=== PATIENT | male | born 1975 | race Caucasian/White ===

== ENCOUNTER 2019-09-19 23:53 | Emergency (ER) | payer BC, SELFPAY ==
--- NOTE | ~2019-09-19 | CT_ITS ---
EXAMINATION: CT abdomen pelvis w con DATE: 09/20/2019 01:49 INDICATION: Generalized abdominal pain. Nausea, vomiting, and diarrhea. TECHNIQUE: Computed tomography (CT) of the abdomen and pelvis was performed with 100 mL Omnipaque 350 intravenous contrast. Automated exposure control and iterative reconstruction technique were employe d. The dose-length product was 1632.50 mGy-cm. COMPARISON: None. FINDINGS: The visualized portions of the lung bases demonstrate mild atelectasis. There is a 4 mm nod ule left lower lobe, likely benign. No pleural effusion. The heart size is normal. No pericardial eff usion. There is diffuse hepatic steatosis. There are gallstones in the gallbladder, which is normal i n size. The spleen, pancreas, adrenal glands, and kidneys are normal. There are no dilated loops of b owel. The appendix is normal. There are no pathologically enlarged lymph nodes. There is no free intr aperitoneal fluid. There is a benign bone island in left femoral head. IMPRESSION: 1. Cholelithiasis. No evidence of acute cholecystitis. 2. Diffuse hepatic steatosis. Reviewed, dictated and finalized at location A.
[2019-09-19 23:54] VITALS: BP 148/98; PULSE 88; RESP 18; TEMP 36.4; O2SAT 95
--- NOTE | 2019-09-20 00:16 | ED.NAVMDI ---
HPI - Nausea/Vomiting/Diarrhea General Chief complaint: Nausea/Vomiting/Diarrhea Stated complaint: n/v/d for 2 days Time Seen by Provider: 09/19/19 23:59 Source: RN notes reviewed History of Present Illness HPI Narrative: Patient presents emergency department from home for nausea vomiting diarrhea patient states symptoms began approximately 3 days ago. He states he is having approximately 3-4 episodes of emesis today as well as several episodes of diarrhea he denies any other associated symptoms denies any fevers or chills chest pain shortness of breath abdominal pain. He denies any recent antibiotic use denies any foreign travel Related Data Allergies Allergy/AdvReac Type Severity Reaction Status Date / Time Penicillins Allergy Mild Unverified 09/08/18 17:24 Review of Systems Review of Systems: Narrative: Gen.: Denies fevers or chills ENT: Denies congestion Respiratory: Denies shortness of breath or cough CV: Denies chest pain or palpitations GI: See HPI denies burning, urgency, frequency or hematuria Musculoskeletal: Denies back pain or muscle pain Neuro: Denies numbness, tingling, weakness or focal weakness Skin: Denies rash Except as documented, all other systems reviewed and negative [facility] Past Medical History Medical History (Updated 09/20/19 @ 02:25 by Suraj Solitario DO) COPD (chronic obstructive pulmonary disease) Social History Social History (Updated 09/20/19 @ 00:17 by Suraj Solitario DO) Smoking packs per day: 0.5 Smoking cigarettes per day: 10.0 Gender identity (if verbalized by the patient): Male Exam Narrative: Exam Narrative: APPEARANCE: No acute distress, nontoxic, resting in bed EYES: EOMI HEENT: Normocephalic, atraumatic, oromucosa dry RESPIRATORY: No respiratory distress Clear to auscultation bilaterally with no rhonchi wheezing or rales. CARDIOVASCULAR: Regular rate and rhythm without murmurs rubs or gallops. ABDOMINAL: Soft, nontender, nondistended, no rebound or guarding MUSCULOSKELETAl: Moves all extremities. No clubbing, cyanosis or edema. NEURO: Awake and alert. Following commands, speech normal, no focal deficits SKIN:: Warm, dry. No rashes lesions or abrasions PSYCHIATRIC: Normal affect/mood, Course Course Emergency Course: Patient states that they are feeling much better at this time. Repeat abdominal exam shows the patient's abdomen to be soft and nontender. Discussed with patient results of workup and diagnosis. Discussed need for follow-up with primary care physician, reasons to return to the emergency department in proper use of medication. Patient understands and agrees to current treatment plan Vital Signs Vital signs: Vital Signs Temperature 97.5 F L 09/19/19 23:54 Pulse Rate 88 09/19/19 23:54 Respiratory Rate 18 09/19/19 23:54 Blood Pressure 148/98 H 09/19/19 23:54 Pulse Oximetry 95 09/19/19 23:54 Temperature 97.5 F L 09/19/19 23:54 Pulse Rate 72 09/20/19 02:04 Respiratory Rate 18 09/20/19 02:04 Blood Pressure 144/85 H 09/20/19 02:04 Pulse Oximetry 100 09/20/19 02:04 MDM - Nausea/Vomiting/Diarrhea Lab Data Result diagrams: 09/20/19 00:20 09/20/19 00:20 Labs: Lab Results 09/20/19 09/20/19 09/20/19 Range/Units 00:20 00:20 01:09 WBC 11.2 H (4.5-10.0) K/mm3 RBC 4.45 L (4.6-6.20) M/mm3 Hgb 13.6 L (14.0-18.0) g/dL Hct 42.5 (42.0-52.0) % MCV 95.5 (80-100) fl MCH 30.6 (26-34) pg MCHC 32.0 (32-36) g/dl RDW 13.7 (11.5-14.5) % Plt Count 248 (150-375) k/mm3 MPV 10.4 (7.4-10.4) fl Immature Gran % (Auto) 0.4 (0-0.5) % Neut % (Auto) 70.1 (45.5-73.1) % Lymph % (Auto) 21.6 (18.3-44.2) % [place] % (Auto) 5.2 (2.6-8.5) % Eos % (Auto) 2.1 (0-4.4) % Baso % (Auto) 0.6 (0.2-1.2) % Lymph # (Auto) 2.41 (0.9-3.2) K/mm3 [place] # (Auto) 0.6 (0.1-0.6) K/mm3 Eos # (Auto) 0.2 (0-0.3) K/mm3 Baso # (Auto) 0.1 (0.0-0.1
[2019-09-20] MEDS: ONDANSETRON INJ 4 MG/2 ML VIAL IV PUSH (00:25)
[2019-09-20] MEDS: LACTATED RINGERS 1,000 ML 999 ML IV CONT (00:25)
[2019-09-20 00:36] LABS: Basophils Absolute Auto 0.1 K/mm3 (0.0-0.1); Basophils Percent Auto 0.6 % (0.2-1.2); Eosinophils Absolute Auto 0.2 K/mm3 (0-0.3); Eosinophils Percent Auto 2.1 % (0-4.4); Hematocrit 42.5 % (42.0-52.0); Hemoglobin 13.6 g/dL (14.0-18.0); Immature Granulocyte Absolute 0.04 K/mm3 (0.00-0.031); Immature Granulocyte Percent A 0.4 % (0-0.5); Lymphocytes Absolute Auto 2.41 K/mm3 (0.9-3.2); Lymphocytes Percent Auto 21.6 % (18.3-44.2); Mean Corpuscular Hemoglobin 30.6 pg (26-34); Mean Corpuscular Volume 95.5 fl (80-100); Mean Platelet Volume 10.4 fl (7.4-10.4); Monocytes Absolute Auto 0.6 K/mm3 (0.1-0.6); Monocytes Percent Auto 5.2 % (2.6-8.5); Neutrophils Absolute Auto 7.8 K/mm3 (1.3-6.7); Neutrophils Percent Auto 70.1 % (45.5-73.1); Platelet Count Result 248 k/mm3 (150-375); Red Blood Count 4.45 M/mm3 (4.6-6.20); Red Cell Distribution Width 13.7 % (11.5-14.5); White Blood Count 11.2 K/mm3 (4.5-10.0)
[2019-09-20 00:39] LABS: Alanine Aminotransferase 35 U/L (4-50); Albumin Level 4.2 g/dL (3.5-5.1); Alkaline Phosphatase 88 U/L (38-126); Aspartate Amino Transferase 36 U/L (17-59); Bilirubin,Total 0.3 mg/dL (0.2-1.3); Blood Urea Nitrogen 13 mg/dL (9-20); Carbon Dioxide 31 mmol/L (22-30); Chloride 100 mmol/L (98-107); Estimated Glomerular Filt Rate > 60; Glucose 117 mg/dL (75-110); Lipase 81 U/L (23-300); Potassium 4.3 mmol/L (3.4-5.0); Sodium 136 mmol/L (137-145)
[2019-09-20 01:16] LABS: Add Urine Microscopic? YES; Appearance Urine Clear (Clear); Bacteria Urine Trace /hpf; Bilirubin Urine Negative (Negative); Blood Urine Negative (Negative); Color Urine Yellow (Yellow); Glucose Urine UA Negative (Negative); Ketones Urine Negative (Negative); Leukocyte Esterase Ur Negative LEU/UL (Negative); Mucus Urine Moderate /lpf; Nitrate Urine Negative (Negative); Protein Urine 1+ mg/dL (Negative); RBC Urine 0-2 /hpf (0-2); Specific Grav Ur 1.027 (1.001-1.035); Squamous Epithelial Cell Urine Rare /hpf (Few); Urobilinogen Urine Negative mg/dL (<2.0); WBC Urine 0-3 /hpf
[2019-09-20] MEDS: PROMETHAZINE HCL 25 MG/ML AMPUL 12.5 MG IV PUSH (01:44)
[2019-09-20] MEDS: SODIUM CHLORIDE 0.9% IV 1,000 ML 999 ML IV CONT (01:44)
[2019-09-20 02:04] VITALS: BP 144/85; PULSE 72; RESP 18; O2SAT 100
[2019-09-20 02:38] VITALS: BP 136/79; PULSE 80; RESP 19; TEMP 37; O2SAT 100
== END 2019-09-20 02:39 | disposition home or self-care (01) ==
PROVIDERS: Emergency Provider Emergency Medicine; PCP Physician Assistant
DX: K80.20 Calculus of gallbladder without cholecystitis without obstruction (principal); J44.9 Chronic obstructive pulmonary disease, unspecified; F17.210 Nicotine dependence, cigarettes, uncomplicated
CPT/HCPCS: 36415; 74177; 80053; 81001; 83690; 85025; 96361; 96374; 96375; 99284; J2405; J2550; J7030; J7120; Q9967

== ENCOUNTER 2020-01-08 09:40 | Emergency (ER) | payer BC, SELFPAY ==
--- NOTE | ~2020-01-08 | CT_ITS ---
EXAMINATION: CT abd pelvis lumbar w con EXAM DATE: 01/08/2020 14:03 INDICATION: Back pain, fall injury 4 months ago. Pain is worse. TECHNIQUE: Spiral CT of the abdomen and pelvis was performed following intravenous injection of 100 m L Omnipaque 350. Axial, coronal and sagittal images were reviewed. Axial, coronal and sagittal image s of the lumbar spine with same bolus of contrast were reviewed. The dose-length product (DLP) for this examination was 1634.27 mGy-cm. The exposure was tailored according to patient size (auto mA ex posure control), and iterative reconstruction (ASIR) was used as additional dose reduction technique. There is no prior study for comparison. FINDINGS: There is hepatic steatosis without suspicious focal lesion identified. Spleen, adrenal glan ds, pancreas are unremarkable. There are gallstones within an otherwise unremarkable gallbladder. N o evidence of obstructive biliary disease. Portal and splenic veins are patent. Kidneys enhance sym metrically. There is no hydronephrosis. The prostate is unremarkable. The bladder is collapsed at time of imaging limiting evaluation. There is no retroperitoneal or pelvic lymphadenopathy. The appendix is normal. The stomach and small bowel are unremarkable. There is expected amount of c olonic stool. No free intraperitoneal gas. The heart is normal in size. There are no pericardial or pleural effusions. The lung bases are unremarkable. There are no osteoblastic or osteolytic lesi ons identified. Lumbar spine: Level by level evaluation is limited from patient's body habitus, quantum mottling. The re is no acute fracture or spondylolysis. Mild diffuse thoracolumbar disc disease. L5-S1 has moderate bilateral neural foraminal stenosis, mild to moderate at L4-5 bilaterally. Mild lower thoracic and l ower lumbar facet arthropathy. Sacroiliac joints are intact. IMPRESSION: 1. Hepatic steatosis. 2. L5-S1 moderate bilateral neural foraminal stenosis. Lesser spondylosis other levels. 3. No acute abdomen, pelvic or lumbar findings. Reviewed, dictated and finalized at location B. IMPRESSION: 1. Hepatic steatosis. 2. L5-S1 moderate bilateral neural foraminal stenosis. Lesser spondylosis othe r levels. 3. No acute abdomen, pelvic or lumbar findings.
[2020-01-08 09:42] VITALS: BP 149/84; PULSE 93; RESP 18; TEMP 36.4; O2SAT 95
[2020-01-08] MEDS: KETOROLAC 30 MG/ML VIAL (*BKC) IV PUSH (11:48)
--- NOTE | 2020-01-08 12:57 | PC.NURSE ---
patient angry and upset at failed iv attempt. states this nurse has a terrible bedside manner and refused to allow additional attempts by this rn. patient refused to lie on stretcher and would only sit on stool where his arm was not easily accessible
[2020-01-08 13:20] LABS: Basophils Absolute Auto 0.1 K/mm3 (0.0-0.1); Basophils Percent Auto 0.5 % (0.2-1.2); Eosinophils Absolute Auto 0.2 K/mm3 (0-0.3); Eosinophils Percent Auto 2.1 % (0-4.4); Hematocrit 41.2 % (42.0-52.0); Hemoglobin 13.2 g/dL (14.0-18.0); Immature Granulocyte Absolute 0.02 K/mm3 (0.00-0.031); Immature Granulocyte Percent A 0.2 % (0-0.5); Lymphocytes Absolute Auto 2.03 K/mm3 (0.9-3.2); Lymphocytes Percent Auto 21.3 % (18.3-44.2); Mean Corpuscular Hemoglobin 30.8 pg (26-34); Mean Platelet Volume 10.1 fl (7.4-10.4); Monocytes Absolute Auto 0.5 K/mm3 (0.1-0.6); Monocytes Percent Auto 4.9 % (2.6-8.5); Neutrophils Absolute Auto 6.8 K/mm3 (1.3-6.7); Platelet Count Result 207 k/mm3 (150-375); Red Blood Count 4.29 M/mm3 (4.6-6.20); Red Cell Distribution Width 13.7 % (11.5-14.5); White Blood Count 9.5 K/mm3 (4.5-10.0)
[2020-01-08 13:34] LABS: Alanine Aminotransferase 38 U/L (4-50); Albumin Level 4.1 g/dL (3.5-5.1); Alkaline Phosphatase 111 U/L (38-126); Anion Gap 7 mmol/L (8-16); Aspartate Amino Transferase 30 U/L (17-59); Bilirubin,Total 0.2 mg/dL (0.2-1.3); Blood Urea Nitrogen 13 mg/dL (9-20); Calcium 9.2 mg/dL (8.4-10.2); Carbon Dioxide 33 mmol/L (22-30); Chloride 97 mmol/L (98-107); Estimated CRCL calculation 203 ml/min; Estimated Glomerular Filt Rate > 60; Glucose 103 mg/dL (75-110); Potassium 4.4 mmol/L (3.4-5.0); Sodium 137 mmol/L (137-145)
[2020-01-08 13:56] LABS: Estimated CRCL calculation 179 ml/min; Estimated Glomerular Filt Rate > 60
[2020-01-08] MEDS: diazePAM (*CRX) 5 MG TABLET PO (15:12)
--- NOTE | 2020-01-08 15:14 | ED.BACK ---
HPI - Back Pain/Injury General Chief Complaint: Back Pain/Injury <Javid Garcia PA-C - Last Filed: 01/08/20 15:24> Stated Complaint: chronic lbp <Javid Garcia PA-C - Last Filed: 01/08/20 15:24> Time Seen by Provider: 01/08/20 11:07 <Javid Garcia PA-C - Last Filed: 01/08/20 15:24> Source: patient and family <Javid Garcia PA-C - Last Filed: 01/08/20 15:24> Mode of arrival: ambulatory <Javid Garcia PA-C - Last Filed: 01/08/20 15:24> Limitations: no limitations <Javid Garcia PA-C - Last Filed: 01/08/20 15:24> History of Present Illness HPI Narrative: Patient is a 44-year-old male who presents with low back pain that is been present for 4 months after falling off of a couch has since had pain in the lower buttock and back that has been persistent patient has not been seen for this complaint denies other injuries or complaints denies any urinary bowel changes rectal bleeding or melena fever chills nausea vomiting or history of similar occurrence patient notes he was bending over off the couch when he fell down as the initial injury <Javid Garcia PA-C - Last Filed: 01/08/20 15:24> Related Data Allergies/Adverse Reactions: Allergies Allergy/AdvReac Type Severity Reaction Status Date / Time Penicillins Allergy Mild Unknown Verified 01/08/20 15:04 <Javid Garcia PA-C - Last Filed: 01/08/20 15:24> Review of Systems Review of Systems: All systems reviewed & are unremarkable except as noted in HPI and below <Javid Garcia PA-C - Last Filed: 01/08/20 15:24> [facility] Past Medical History Medical History: Medical History COPD (chronic obstructive pulmonary disease) <Javid Garcia PA-C - Last Filed: 01/08/20 15:24> Social History Social History: Social History Smoking packs per day: 0.5 Smoking cigarettes per day: 10.0 Gender identity (if verbalized by the patient): Male <LIVIA Ramos Last Filed: 01/08/20 15:24> Exam Narrative: Exam Narrative: GENERAL: Well-appearing, morbidly obese, and in no acute distress. HEAD: Normocephalic, atraumatic. EYES: PERRLA and EOMI. ENT: Nares clear, no rhinorrhea or epistaxis. Mucous membranes moist. Oropharynx without tonsillar hypertrophy exudate or other lesions. CHEST: Clear to auscultation. No respiratory distress. No wheezes rales or rhonchi HEART: Regular rate and rhythm. No murmur heard. Normal peripheral pulses. ABDOMEN: Soft, nontender,distended EXTREMITIES: Normal range of motion. No edema. Tenderness across the lower lumbar spine SKIN: Warm, dry, no rash. NEURO: No focal deficits. Alert and oriented x3. Normal speech and gait PSYCH: Normal mood and affect. <LIVIA Ramos Last Filed: 01/08/20 15:24> Course Course Emergency Course: Patient without high risk changes in the blood work or imaging was unable to provide a urine sample will be discharged patient's pain is been present for 4 months which is reassuring patient advised to follow with primary care for further evaluation patient on arrival to emergency department in no distress appearing uncomfortable patient is afebrile nontoxic-appearing no distress <LIVIA Ramos Last Filed: 01/08/20 15:24> Vital Signs Vital signs: Vital Signs Temperature 36.4 C 01/08/20 09:42 Pulse Rate 93 01/08/20 09:42 Respiratory Rate 18 01/08/20 09:42 Blood Pressure 149/84 H 01/08/20 09:42 Pulse Oximetry 95 01/08/20 09:42 Temperature 36.4 C 01/08/20 09:42 Pulse Rate 80 01/08/20 15:39 Respiratory Rate 20 01/08/20 15:39 Blood Pressure 142/78 H 01/08/20 15:39 Pulse Oximetry 99 01/08/20 15:39 <LIVIA Ramos Last Filed: 01/08/20 15:24> Vital Signs Temperature 36.4 C 01/08/20 09:42 Pulse Rate 93 01/08/20 09:42 Respiratory Rat
[2020-01-08 15:39] VITALS: BP 142/78; PULSE 80; RESP 20; O2SAT 99
== END 2020-01-08 15:41 | disposition home or self-care (01) ==
PROVIDERS: Emergency Medicine Emergency Medical Services; Emergency Provider Emergency Medicine; PCP Physician Assistant
DX: M54.5 Low back pain (principal); J44.9 Chronic obstructive pulmonary disease, unspecified
CPT/HCPCS: 36415; 72132; 74177; 80053; 85025; 96365; 96375; 99284; A9270; J0131; J1885; Q9967

== ENCOUNTER 2020-10-18 15:17 | Observation (INO) | payer BC, SELFPAY ==
[2020-10-18] VITALS (24 sets, daily range): BP systolic 94–137; BP diastolic 54–86; PULSE 80–110; RESP 12–25; TEMP 36.4–36.6; O2SAT 88–100; BMI 56.0
--- NOTE | ~2020-10-18 | US_ITS ---
EXAMINATION: US venous doppler [facility] DATE: 10/19/2020 12:00 INDICATION: Lower limb swelling TECHNIQUE: Hale scale images without and with compression and Doppler images of the bilateral lower e xtremity veins were obtained. COMPARISON: None FINDINGS: The right common femoral vein, profunda femoral vein, femoral vein, popliteal vein, peroneal trunk, p osterior tibial veins, and greater saphenous vein are patent. The left common femoral vein, profunda femoral vein, femoral vein, popliteal vein, peroneal trunk, po sterior tibial veins, and greater saphenous vein are patent. IMPRESSION: 1. Patent bilateral lower extremity veins. No evidence of deep venous thrombosis. Reviewed, dictated and finalized at location A. IMPRESSION: 1. Patent bilateral lower extremity veins. No evidence of deep venous thrombosi s.
--- NOTE | ~2020-10-18 | CT_ITS ---
EXAMINATION: CTA chest PE protocol EXAM DATE: 10/18/2020 16:16 INDICATION: Shortness of breath and elevated d-dimer. TECHNIQUE: Spiral CTA of the chest (pulmonary arteries) was performed with 100 cc Omnipaque 350 intr avenous contrast injection. Images were acquired during the pulmonary arterial phase. Coronal maxi mum intensity projection 3D-reconstructions were created by the technologist on dedicated workstation . Axial, coronal and sagittal reformatted images were reviewed. The dose-length product (DLP) for t his examination was 1100.33 mGy-cm. The exposure was tailored according to patient size (auto mA ex posure control), and iterative reconstruction (ASIR) was used as additional dose reduction technique. There is no prior study for comparison. FINDINGS: Pulmonary arteries are well opacified and without intraluminal filling defects. No thora cic aortic dissection. The lungs are clear. There are no pleural or pericardial effusions. Trach eobronchial tree is patent. There is no mediastinal, hilar or axillary lymphadenopathy. There is no pneumothorax. Heart normal in size. No evidence of coronary arterial calcification. There is hepatic steatosis and single calcified gallstone identified. There is thoracic spondylosis without o steoblastic or osteolytic lesions identified. IMPRESSION: 1. No pulmonary emboli or acute cardiopulmonary findings. Reviewed, dictated and finalized at location A.
--- NOTE | ~2020-10-18 | CT_ITS ---
EXAMINATION: CT abdomen pelvis w con EXAM DATE: 10/19/2020 14:57 INDICATION: Abdominal pain, cellulitis. TECHNIQUE: Spiral CT of the abdomen and pelvis was performed following intravenous injection of 100 m L Omnipaque 350. Axial, coronal and sagittal images of the abdomen and pelvis were reviewed. The do se-length product (DLP) for this examination was 1728.29 mGy-cm. The exposure was tailored according to patient size (auto mA exposure control), and iterative reconstruction (ASIR) was used as addition al dose reduction technique. Comparison is made to prior examination from 01/08/2020. FINDINGS: The subcutaneous fat, skin anteriorly and along the flanks is outside of the field of view. There is small umbilical fat-containing hernia. No other abdominal wall defects are identified. Smal l bilateral inguinal fat-containing hernias. There is hepatic steatosis without suspicious focal lesion identified. Spleen, adrenal glands, pancre as are unremarkable. There are gallstones within an otherwise unremarkable gallbladder. No evidence of obstructive biliary disease. Portal and splenic veins are patent. Kidneys enhance symmetrically . There is no hydronephrosis. The prostate is unremarkable. The bladder is unremarkable. There i s no retroperitoneal or pelvic lymphadenopathy. The appendix is normal. The stomach and small bowel are unremarkable. There is expected amount of c olonic stool. No free intraperitoneal gas. The heart is normal in size. There are no pericardial or pleural effusions. The lung bases are unremarkable. There are no osteoblastic or osteolytic les ions identified. IMPRESSION: 1. No acute intra-abdominal findings. 2. Small inguinal, umbilical fat-containing hernias. 3. Hepatic steatosis. 4. Cholelithiasis. Reviewed, dictated and finalized at location A.
--- NOTE | 2020-10-18 15:25 | ECG_ITS ---
Measurements Intervals [place] Rate: 106 P: 7 WA: 136 QRS: 24 QRSD: 101 T: 60 QT: 325 QTc: 433 Interpretive Statements SINUS TACHYCARDIA BORDERLINE ECG Electronically Signed On 10-18-2020 21:47:23 CDT by César Swanson D.O.
[2020-10-18] MEDS: ALBUTEROL SULFATE NEB 2.5 MG/0.5 ML INH 5 MG INHALATION ×2 (15:40→21:01)
[2020-10-18] MEDS: IPRATROPIUM BR 0.02% INH SOLN 0.5 MG/2.5 ML VIAL 1 MG INHALATION (15:40)
[2020-10-18 15:43] LABS: Basophils Percent Auto 0.4 % (0.2-1.2); Eosinophils Absolute Auto 0.1 K/mm3 (0-0.3); Eosinophils Percent Auto 1.7 % (0-4.4); Hematocrit 38.3 % (42.0-52.0); Hemoglobin 11.8 g/dL (14.0-18.0); Immature Granulocyte Absolute 0.02 K/mm3 (0.00-0.031); Immature Granulocyte Percent A 0.2 % (0-0.5); Lymphocytes Absolute Auto 1.65 K/mm3 (0.9-3.2); Lymphocytes Percent Auto 19.8 % (18.3-44.2); Mean Corpuscular HGB Conc 30.8 g/dl (32-36); Mean Corpuscular Hemoglobin 30.5 pg (26-34); Mean Platelet Volume 9.7 fl (7.4-10.4); Monocytes Absolute Auto 0.5 K/mm3 (0.1-0.6); Monocytes Percent Auto 6.1 % (2.6-8.5); Neutrophils Percent Auto 71.8 % (45.5-73.1); Platelet Count Result 219 k/mm3 (150-375); Red Blood Count 3.87 M/mm3 (4.6-6.20); Red Cell Distribution Width 15.6 % (11.5-14.5); White Blood Count 8.3 K/mm3 (4.5-10.0)
[2020-10-18 15:51] LABS: Base Excess ABG 6.8 mEq/l (+/-2.0); Device ROOM AIR; Fractional Inspired Oxygen 21 %; HCO3 ABG 34.1 mEq/l (22.0-26.0); Modified Allen's Test Pass; Oxygen Content ABG 14.9 %vol (16.0-22.0); Oxygen Saturation ABG 86.3 % (95.0-100.0); Oxyhemoglobin 85.5 % THb (90.0-100.0); PCO2 ABG 61.9 mmHg (35.0-45.0); PO2 ABG 54.6 mmHg (80.0-100.0); Site Drawn RIGHT RADIAL; Total Hemoglobin 12.4 g/dL (12.0-18.0); pH ABG 7.359 (7.350-7.450)
[2020-10-18 15:53] LABS: Alanine Aminotransferase 28 U/L (4-50); Albumin Level 3.7 g/dL (3.5-5.1); Alkaline Phosphatase 89 U/L (38-126); Anion Gap 7 mmol/L (8-16); Aspartate Amino Transferase 30 U/L (17-59); Bilirubin,Total 0.3 mg/dL (0.2-1.3); Blood Urea Nitrogen 13 mg/dL (9-20); Calcium 8.4 mg/dL (8.4-10.2); Carbon Dioxide 32 mmol/L (22-30); Chloride 101 mmol/L (98-107); Estimated CRCL calculation 216 ml/min; Estimated Glomerular Filt Rate > 60; Glucose 138 mg/dL (75-110); Magnesium 1.7 mg/dL (1.6-2.3); Potassium 4.2 mmol/L (3.4-5.0); Sodium 140 mmol/L (137-145)
[2020-10-18 15:54] LABS: INR 0.9; Partial Thromboplastin Time 29.5 SECONDS (22.3-36.8); Prothrombin Time 12.3 Seconds (11.1-14.7)
[2020-10-18 15:57] LABS: D Dimer 0.86 ug/mL (<0.48)
[2020-10-18 16:02] LABS: Platelet Estimate Adequate (Adequate); Stomatocytes 1+ (NORMAL)
[2020-10-18 16:03] LABS: Atypical Lymphocytes Present
[2020-10-18 16:04] LABS: NT Pro B Type Natriuretic Pept 68 pg/mL (5-100); Troponin I < 0.012 ng/mL (0.000-0.034)
[2020-10-18] MEDS: FUROSEMIDE INJ 40 MG/4 ML VIAL IV PUSH (16:10)
[2020-10-18] MEDS: ONDANSETRON INJ 4 MG/2 ML VIAL IV PUSH (16:11)
[2020-10-18 16:34] LABS: Add Urine Microscopic? NO; Appearance Urine Clear (Clear); Bilirubin Urine Negative (Negative); Blood Urine Negative (Negative); Color Urine Straw (Yellow); Glucose Urine UA Negative (Negative); Ketones Urine Negative (Negative); Leukocyte Esterase Ur Negative LEU/UL (Negative); Nitrate Urine Negative (Negative); Protein Urine Negative (Negative); Specific Grav Ur 1.013 (1.001-1.035); Urobilinogen Urine Negative mg/dL (<2.0)
--- NOTE | 2020-10-18 16:48 | ED.SOB ---
HPI - SOB/Dyspnea General Chief Complaint: Shortness of Breath/Dyspnea Stated Complaint: pedal edema, shortness of breath Time Seen by Provider: 10/18/20 15:25 Source: patient, family and RN notes reviewed Mode of arrival: ambulatory Limitations: no limitations History of Present Illness HPI Narrative: Patient is a 45-year-old male who presents to emergency department for evaluation of shortness of breath patient with history of tobacco abuse morbid obesity COPD patient notes that he is visiting from out of town has been noncompliant with his Lasix and has not been eating well has had increasing swelling in the lower extremities coupled with shortness of breath also has some nausea and vomiting last night patient on arrival with mild respiratory distress patient notes longstanding history of tobacco abuse denies any new URI symptoms or sick contacts Related Data Home Medications Medication Instructions Recorded Confirmed albuterol sulfate INHALATION 10/18/20 carvedilol 10/18/20 diclofenac sodium PO 10/18/20 furosemide 10/18/20 meloxicam 10/18/20 metformin mg 10/18/20 Allergies Allergy/AdvReac Type Severity Reaction Status Date / Time Penicillins Allergy Mild Unknown Verified 10/18/20 15:30 Review of Systems Review of Systems: All systems reviewed & are unremarkable except as noted in HPI and below PMFSH Past Medical History Medical History (Updated 10/18/20 @ 17:18 by Javid Garcia PA-C) COPD (chronic obstructive pulmonary disease) Social History Social History Smoking packs per day: 0.5 Smoking cigarettes per day: 10.0 Gender identity (if verbalized by the patient): Male Exam Narrative: Exam Narrative: GENERAL: No-appearing, morbidly obese, and in no acute pain distress. HEAD: Normocephalic, atraumatic. EYES: PERRLA and EOMI. ENT: Nares clear, no rhinorrhea or epistaxis. Mucous membranes moist. Oropharynx without tonsillar hypertrophy exudate or other lesions. Bilateral TMs pearly saldivar nonbulging NECK: Supple. No adenopathy or masses. No carotid bruits or JVD CHEST: Diminished on auscultation. Mild respiratory distress. Expiratory wheezes throughout HEART: Regular rate and rhythm. No murmur heard. Normal peripheral pulses. ABDOMEN: Soft, nontender, distended EXTREMITIES: Normal range of motion. No edema. SKIN: Warm, dry, no rash. Patient with wounds to the abdomen that appear chronic in nature there is some surrounding erythema NEURO: No focal deficits. Alert and oriented x3. Cranial nerves II through XII grossly intact PSYCH: Normal mood and affect. Course Course Emergency Course: Patient evaluated in the emergency department will be admitted for hypoxemia COPD exacerbation patient made aware of case findings treatment plan and diagnosis given updraft treatment and steroids in the emergency department no pneumonia or pulmonary embolus on imaging Consultations Consultation #1: Discussed case with hospitalist who has agreed to accept the patient Date: 10/18/20 Time: 17:17 Vital Signs Vital signs: Vital Signs Temperature 97.6 F 10/18/20 15:25 Pulse Rate 106 H 10/18/20 15:25 Respiratory Rate 18 10/18/20 15:25 Blood Pressure 137/83 10/18/20 15:25 Pulse Oximetry 93 10/18/20 15:25 Temperature 97.6 F 10/18/20 15:25 Pulse Rate 88 10/18/20 16:02 Respiratory Rate 12 10/18/20 16:02 Blood Pressure 137/83 10/18/20 15:25 Pulse Oximetry 100 10/18/20 16:06 MDM - SOB/Dyspnea MDM Narrative Medical decision making narrative: Patient will be brought in for COPD exacerbation to the hospital secondary to hypoxemia patient agreeing with this plan medicated in the emergency department Lab Data Result diagrams: 10/18/20 15:35 10/18/20 15:36 Labs: Lab Results 10/18/20 10/18/20 10/18/20 Range/Units 15:35 15:35 15:36 WBC 8.3 (4.5-10.0) K/mm3 RBC 3.87 L (4.6-6.20)
[2020-10-18] MEDS: methylPREDNISolone SOD SUCC 125 MG VIAL IV PUSH (17:46)
[2020-10-18 19:11] LABS: Troponin I < 0.012 ng/mL (0.000-0.034)
[2020-10-18] MEDS: LACTATED RINGERS 1,000 ML 75 ML IV CONT (19:18)
--- NOTE | 2020-10-18 20:19 | ADMGEN ---
This patient, Jerzy Leahy, was admitted to [facility] Surg Room 311-01. Patient/family oriented to hospital policies and general routines including ID bracelet, bed and alarms, visiting hours, pain management, procedures, bathroom and other care routines, personal items, smoking policy, room service/diet, and visiting hours. Information on how to activate the Rapid Response Team has been discussed. Patient/Family are encouraged to report perceived risks to care and to ask questions if they do not understand what they are told or what they should do.
[2020-10-18] MEDS: FAMOTIDINE 20 MG/2 ML VIAL IV PUSH (20:40)
[2020-10-18] MEDS: IPRATROPIUM BR 0.02% INH SOLN 0.5 MG/2.5 ML VIAL INHALATION (21:01)
--- NOTE | 2020-10-18 22:13 | PM.IMHP ---
H&P: HPI History of Present Illness Date/Time: 10/18/20 22:13 this is a 45-year-old male patient who was just visiting [facility]. The patient came to the emergency room with complaints of shortness of breath. He is morbid obesity and COPD. The patient quite often has boils on his abdomen. The patient had increased swelling to his lower extremities and has not been eating very well recently. The patient tells me that he came in to the emergency room because of his increased swelling to his lower extremities. The patient also stated he had a recent injury to his right knee where he heard up pop and crack when he was running up a hill. Patient is having difficulty walking his right leg. His oxygen level was found to be 88 89%. 2 L of oxygen was applied per nasal cannula. Chest CTA was read as no pulmonary emboli or acute cardiopulmonary findings. The patient was started on a nebulizer treatment, IV Lasix, Zofran Solu-Medrol he was started on Primaxin and vancomycin for cellulitis to the abdomen in a diabetic patient. Unfortunately blood cultures have not been obtained prior to antibiotic treatment. The patient is being admitted to observation services on the date of service 10/18/2020. Chief Complaint: Edema to lower extremity Review of Systems Review of Systems: All systems reviewed & are unremarkable except as noted in HPI and below Constitutional: Constitutional: Reports as per HPI and Reports no additional constitutional complaints Eyes: Eyes: Reports as per HPI and Reports no additional eye complaints ENT: Reports system reviewed and no additional complaints, except as documented and Reports Normal hearing present Cardiovascular: Cardiovascular: Reports no additional cardiovascular complaints Respiratory: Respiratory: Reports no additional respiratory complaints and Reports no additional respiratory complaints Gastrointestinal: Gastrointestinal: Reports as per HPI and Reports no additional gastrointestinal complaints Musculoskeletal: Musculoskeletal: Reports no additional musculoskeletal complaints Integumentary/Breasts: Skin/Breast: Reports system reviewed and no additional complaints, except as docu and Reports as per HPI Neurologic: Reports system reviewed and no additional complaints, except as documented, Reports as per HPI and Reports Normal hearing present Psychiatric: Psychiatric: Reports no additional psychiatric complaints and Reports as per HPI Endocrine: Endocrine: Reports no additional endocrine complaints Hematologic/Lymphatic: Hematologic/Lymphatic: Reports no additional hematologic/lymphatic complaints Allergic/Immunologic: Allergic/Immunologic: Reports no additional allergic/immunologic complaints [facility] Past Medical History Medical History (Updated 10/18/20 @ 22:19 by Lucia Hatch NP) Congestive heart failure COPD (chronic obstructive pulmonary disease) DM2 (diabetes mellitus, type 2) Hypertension Tobacco abuse Surgical History Surgical History (Updated 10/18/20 @ 22:25 by Lucia Hatch NP) H/O cardiac catheterization x2 without intervention H/O hernia repair History of tonsillectomy Family History Family History (Updated 10/18/20 @ 20:31 by Radha Palmer RN) Father Diabetes mellitus Other Acute myocardial infarction Social History Social History (Updated 10/18/20 @ 22:25 by Lucia Hatch NP) Social History: the patient stated that he is and that he lives with his 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 He has 4 daughters. He smokes about half pack a cigarettes a day. He was working in a [employer] and recently got fired due to his illness. The patient does not use any alcohol or illicit drugs. He occasionally uses marijuana. The patient desires to be a full code. Smoking packs per day: 0.50 Smoking cigarettes per day: 10.0 Years smoked: 24 Smoking pack-years: 12.00 Smoking status: Current every day smoker Tobacco type: cig
[2020-10-18] MEDS: HYDROcodone/acetaminophen (*CRX) 5-325 MG TABLET 1 TAB PO (23:41)
[2020-10-19] VITALS (13 sets, daily range): BP systolic 138–166; BP diastolic 69–76; PULSE 70–120; RESP 18–22; TEMP 36.6–36.8; O2SAT 92–99
--- NOTE | 2020-10-19 | ECHO_ITS ---
Patient Info Name: Jerzy Leahy Age: 45 years : 1975 Gender: Male Ht: 72 in Wt: 413 lbs BSA: 3.19 m2 HR: 99 bpm BP: 138 / 69 mmHg Heart Rhythm: Sinus Rhythm Technical Quality: Poor Exam Date: 10/19/2020 9:03 AM Exam Location: [facility] Patient Status: Inpatient Admit Date: 10/18/2020 Staff Ordering Physician: Lucia Hatch NP Truck Switcher: Tania Sharpe RDCS Attending Provider: Bina Padron MD Referring Physician: Holden SNEED; Exam Type: CA echo dop color flow w con Study Info Complete two-dimensional, color flow and Doppler transthoracic echocardiogram is performed with contrast to opacify the left ventricle and to improve the deliniation of the left ventricle endocardial borders. Contrast/Agitated Saline Contrast/Ag. Saline: Definity Amount: 4.00 ml Reason for Poor Study: patient body habitus Summary 1. Technically very difficult and limited exam because of patient obesity. 2. Definity contrast injected to improve visualization. 3. Following contrast injection left ventricular size and systolic function looks preserved. 4. The right ventricle appears to be enlarged. 5. None of the cardiac valves were well visualized. No Doppler evidence of significant valvular dysfunction. Left Ventricle Left ventricular chamber dimension is normal. Left ventricular systolic function is normal, estimated at 60-65%. The left ventricular diastolic function is grade I diastolic dysfunction. Right Ventricle Right ventricular chamber dimension is mildly enlarged. Left Atria Left atrial chamber dimension is mildly enlarged. Right Atria Right atrial chamber dimension is not well visualized. Aortic Valve The aortic valve is not well visualized. There is no aortic valve stenosis. Pulmonic Valve The pulmonic valve is not well visualized. Mitral Valve The mitral valve has not well visualized. Tricuspid Valve The tricuspid valve leaflets are not well visualized. Pericardium/Pleural The pericardium appears normal. Aorta The aortic root size at the sinus of Valsalva is not well visualized. Left Ventricular Outflow Tract Name Value Normal LVOT 2D LVOT Diameter 2.49 cm LVOT Doppler LVOT Peak Gradient 4 mmHg LVOT Mean Gradient 2 mmHg LVOT VTI 22.56 cm LVOT VTI/AV VTI Ratio 0.63 LVOT Stroke Volume 109.80 ml LVOT CO 11.43 l/min LVOT CI 3.58 L/min/m2 Pulmonic Valve Name Value Normal PV Doppler PV Peak Gradient 8 mmHg Aortic Valve Name Value Normal
[2020-10-19] MEDS: MAGNESIUM SULF 2 GM/WATER 50ML 2 GM/50 ML BAG IVPB (01:40)
[2020-10-19 02:10] LABS: Glucose Point of Care 140 mg/dl (65-105)
[2020-10-19] MEDS: ALBUTEROL SULFATE NEB 2.5 MG/0.5 ML INH 5 MG INHALATION ×3 (02:52→13:57)
[2020-10-19] MEDS: IPRATROPIUM BR 0.02% INH SOLN 0.5 MG/2.5 ML VIAL INHALATION ×3 (02:52→13:57)
[2020-10-19 06:07] LABS: Basophils Percent Auto 0.2 % (0.2-1.2); Hematocrit 36.7 % (42.0-52.0); Hemoglobin 11.3 g/dL (14.0-18.0); Immature Granulocyte Absolute 0.06 K/mm3 (0.00-0.031); Immature Granulocyte Percent A 0.6 % (0-0.5); Lymphocytes Absolute Auto 0.72 K/mm3 (0.9-3.2); Lymphocytes Percent Auto 7.1 % (18.3-44.2); Mean Corpuscular HGB Conc 30.8 g/dl (32-36); Mean Corpuscular Hemoglobin 30.1 pg (26-34); Mean Corpuscular Volume 97.6 fl (80-100); Monocytes Absolute Auto 0.2 K/mm3 (0.1-0.6); Monocytes Percent Auto 1.5 % (2.6-8.5); Neutrophils Absolute Auto 9.2 K/mm3 (1.3-6.7); Neutrophils Percent Auto 90.6 % (45.5-73.1); Platelet Count Result 207 k/mm3 (150-375); Red Blood Count 3.76 M/mm3 (4.6-6.20); Red Cell Distribution Width 15.3 % (11.5-14.5); White Blood Count 10.1 K/mm3 (4.5-10.0)
[2020-10-19 06:26] LABS: Anion Gap 8 mmol/L (8-16); Blood Urea Nitrogen 13 mg/dL (9-20); Calcium 8.5 mg/dL (8.4-10.2); Carbon Dioxide 28 mmol/L (22-30); Chloride 98 mmol/L (98-107); Estimated CRCL calculation 232 ml/min; Estimated Glomerular Filt Rate > 60; Glucose 307 mg/dL (75-110); Potassium 4.4 mmol/L (3.4-5.0); Sodium 134 mmol/L (137-145)
[2020-10-19 06:27] LABS: Hemoglobin A1C 7.3 % (<5.7)
[2020-10-19] MEDS: methylPREDNISolone SOD SUCC 125 MG VIAL 80 MG IV PUSH ×2 (06:29→15:23)
[2020-10-19 07:36] LABS: Glucose Point of Care 287 mg/dl (65-105)
[2020-10-19] MEDS: INSULIN ASPART (*BKC) 100 UNITS/ML SUB-Q ×3 (07:56→17:17)
[2020-10-19] MEDS: MELOXICAM 7.5 MG TABLET 15 MG PO (07:59)
[2020-10-19] MEDS: metFORMIN HCL 500 MG TABLET PO (07:59)
[2020-10-19] MEDS: FAMOTIDINE 20 MG/2 ML VIAL IV PUSH (08:02)
[2020-10-19] MEDS: ENOXAPARIN 40 MG/0.4 ML SYRINGE SUB-Q (08:02)
[2020-10-19] MEDS: FUROSEMIDE 40 MG TABLET PO (08:02)
[2020-10-19] MEDS: carvediloL 6.25 MG TABLET PO (10:35)
[2020-10-19 11:02] LABS: Glucose Point of Care 236 mg/dl (65-105)
--- NOTE | 2020-10-19 11:57 | PM.IMPN ---
Subjective Date/time seen: 10/19/20 11:57 Objective Data Vital Signs Vital Signs: Vital Signs - 24 hr 10/18/20 15:25 10/18/20 15:30 10/18/20 15:31 Temperature 36.4 C Pulse Rate 106 H 106 H 105 H Respiratory Rate 18 19 18 Blood Pressure 137/83 125/86 Pulse Oximetry 93 89 L 91 10/18/20 15:45 10/18/20 15:46 10/18/20 15:53 Temperature Pulse Rate 98 97 90 Respiratory Rate 25 H 23 H 19 Blood Pressure 119/75 Pulse Oximetry 88 L 93 10/18/20 16:00 10/18/20 16:01 10/18/20 16:02 Temperature Pulse Rate 90 89 88 Respiratory Rate 19 19 12 Blood Pressure 118/83 Pulse Oximetry 94 95 10/18/20 16:05 10/18/20 16:06 10/18/20 16:21 Temperature Pulse Rate Respiratory Rate Blood Pressure Pulse Oximetry 91 100 98 10/18/20 16:30 10/18/20 16:31 10/18/20 16:45 Temperature Pulse Rate Respiratory Rate Blood Pressure 94/58 L Pulse Oximetry 96 99 94 10/18/20 16:46 10/18/20 17:00 10/18/20 17:46 Temperature Pulse Rate 91 87 Respiratory Rate 17 20 Blood Pressure 123/64 116/68 119/76 Pulse Oximetry 95 94 96 10/18/20 18:10 10/18/20 19:02 10/18/20 21:01 Temperature Pulse Rate 81 88 81 Respiratory Rate 16 22 H 18 Blood Pressure 114/54 L 129/84 Pulse Oximetry 96 96 10/18/20 21:05 10/18/20 21:13 10/18/20 22:00 Temperature 36.6 C Pulse Rate 81 84 80 Respiratory Rate 18 22 H Blood Pressure 136/71 Pulse Oximetry 92 94 10/19/20 02:53 10/19/20 03:01 10/19/20 06:00 Temperature 36.6 C Pulse Rate 99 92 95 Respiratory Rate 18 18 22 H Blood Pressure 138/69 Pulse Oximetry 99 10/19/20 07:41 10/19/20 07:50 10/19/20 08:00 Temperature Pulse Rate 91 96 70 Respiratory Rate 18 18 18 Blood Pressure Pulse Oximetry 97 94 10/19/20 08:20 10/19/20 10:35 Temperature Pulse Rate 70 Respiratory Rate Blood Pressure Pulse Oximetry 94 Intake/Output Intake/Output: Intake & Output 10/16/20 10/17/20 10/18/20 10/19/20 23:59 23:59 23:59 23:59 Intake Total 600 900 Output Total 1400 Balance 600 -500 Meds/Results Medications: Active Medications Generic Name Dose Route Start Last Admin Trade Name Freq PRN Reason Stop Dose Admin Hydrocodone Bitart/Acetaminophen 1 tab 10/18/20 23:09 10/18/20 23:41 Hydrocodone/Acetaminophen (*Crx) 5-325 Mg Tablet PO 1 tab Q4H PRN Administration Pain Rated 4-6 Albuterol 5 mg 10/18/20 20:00 10/19/20 07:39 Albuterol Sulfate Neb 2.5 Mg/0.5 Ml Inh INHALATION 5 mg Q6HRT JEANNINE Administration Carvedilol 6.25 mg 10/19/20 09:00 10/19/20 10:35 Carvedilol 6.25 Mg Tablet PO 6.25 mg DAILY JEANNINE Administration Dextrose 12.5 gm 10/18/20 22:09 Dextrose 50% 25 Gm/50 Ml Syringe IV PUSH PRN PRN Hypoglycemia Protocol Enoxaparin Sodium 40 mg 10/19/20 09:00 10/19/20 08:02 Enoxaparin 40 Mg/0.4 Ml Syringe SUB-Q 40 mg DAILY JEANNINE Administration Famotidine 20 mg 10/18/20 21:00 10/19/20 08:02 Famotidine 20 Mg/2 Ml Vial IV PUSH 20 mg Q12HR JEANNINE Administration Furosemide 40 mg 10/19/20 09:00 10/19/20 08:02 Furosemide 40 Mg Tablet PO 40 mg DAILY JEANNINE Administration Glucagon 1 mg 10/18/20 22:09 Glucagon For Inj 1 Mg Vial IM PRN PRN Hypoglycemia Protocol Glucose 15 gm 10/18/20 22:09 Glucose Oral Gel 15 Gm Of Glucse In 37.5 Gm Tube PO PRN PRN Hypoglycemia Protocol Acetaminophen 1,000 mg in 100 mls @ 400 mls/hr 10/18/20 17:19 Ofirmev 1,000 Mg Ivpb IVPB 10/19/20 17:20 Q6H PRN Mild Pain (1-3) or Fever Lactated Ringer's 1,000 mls @ 75 mls/hr 10/18/20 17:20 10/18/20 19:18 Lr - Lactated Ringers Iv IV CONT 75 mls/hr .[id number] JEANNINE Administration Imipenem/Cilastatin Sodium 500 100 mls @ 300 mls/hr 10/19/20 00:00 10/19/20 07:28 mg/ Dextrose IVPB 300 mls/hr Q6H JEANNINE Administration Vancomycin HCl 1,500 mg in 500 mls @ 333.333 mls/hr 10/18/20 20:00 10/19/20 03:5
[2020-10-19 16:18] LABS: Glucose Point of Care 215 mg/dl (65-105)
--- NOTE | 2020-10-19 17:14 | PCRCNOTE ---
HOME OXYGEN EVALUATION COMPLETE; PT. DOES NOT REQUIRE HOME OXYGEN. SALLY JEROME ORACLE ERP ARCHITECT AND PT.'S R.N. BOTH NOTIFIED OF THE RESULTS.
--- NOTE | 2020-10-19 17:35 | PM.DS ---
DS: Admitting Diagnosis Admitting Diagnosis Admitting Diagnosis: Cellulitis, COPD, Diabetes, Right Knee pain s/p Past Injury DS: Discharge Diagnosis Discharge Diagnosis (1) Abdominal wall cellulitis: Code(s): L03.311 - Cellulitis of abdominal wall Status: Acute Assessment and Plan: Received 4 doses of IV vancomycin and 5 doses of IV imipenem Blood and Wound cultures were drawn after he was already started on antibiotics. Blood and Wound cultures remain pending No fevers noted during hospitalization and his WBC was 8.3 at admission and yasir to 10.1 after IV SoluMedrol dosing. CT abdomen pelvis w con EXAM DATE: 10/19/2020 14:57 INDICATION: Abdominal pain, cellulitis. FINDINGS: The subcutaneous fat, skin anteriorly and along the flanks is outside of the field of view. There is small umbilical fat-containing hernia. No other abdominal wall defects are identified. Small bilateral inguinal fat-containing hernias.There is hepatic steatosis without suspicious focal lesion identified. Spleen, adrenal glands, pancreas are unremarkable. There are gallstones within an otherwise unremarkable gallbladder. No evidence of obstructive biliary disease. Portal and splenic veins are patent. Kidneys enhance symmetrically. There is no hydronephrosis. The prostate is unremarkable. The bladder is unremarkable. There is no retroperitoneal or pelvic lymphadenopathy.The appendix is normal. The stomach and small bowel are unremarkable. There is expected amount of colonic stool. No free intraperitoneal gas. The heart is normal in size. There are no pericardial or pleural effusions. The lung bases are unremarkable. There are no osteoblastic or osteolytic lesions identified. IMPRESSION: 1. No acute intra-abdominal findings.2. Small inguinal, umbilical fat-containing hernias.3. Hepatic steatosis.4. Cholelithiasis. Patient was educated about the risk of MRSA and staph infections, he was informed of how to prevent recurrence, prevent spread to other family members or other wounds, and instructed to follow-up with his primary care provider as well as an infectious disease physician since these wounds have become chronic to him. He showed me a scar on his right thigh where he had a past similar wound that had completely healed up through packing. (2) COPD (chronic obstructive pulmonary disease): Code(s): J44.9 - Chronic obstructive pulmonary disease, unspecified Status: Chronic Assessment and Plan: IMPROVED. TREATED with MEDS. The patient had was hypoxic with low PO2 an elevated pCO2 at ED admission and placed on oxygen overnight. patient had a mildly elevated D-dimer at 0.86 his obesity and slight dehydration may also have contributed to that CTA chest PE protocol EXAM DATE: 10/18/2020 16:16 INDICATION: Shortness of breath and elevated d-dimer. FINDINGS: Pulmonary arteries are well opacified and without intraluminal filling defects. No thoracic aortic dissection. The lungs are clear. There are no pleural or pericardial effusions. Tracheobronchial tree is patent. There is no mediastinal, hilar or axillary lymphadenopathy. There is no pneumothorax. Heart normal in size. No evidence of coronary arterial calcification. There is hepatic steatosis and single calcified gallstone identified. There is thoracic spondylosis without osteoblastic or osteolytic lesions identified.IMPRESSION 1. No pulmonary emboli or acute cardiopulmonary findings. Patient was informed of these findings oxygen was discontinued early this morning without any further need patient was given 2-3 doses of IV methylprednisolone and received Solu-Medrol neb treatments discharged patient on a slow oral prednisone taper, as well as doxycycline for 14 days Patient tolerated the home oxygen evaluation study and remained well above 92% per respiratory therapist. No need for home oxygen. Discharged patient with an albuterol Pro air inhaler to use p
[2020-10-19] MEDS: LIDOCAINE 5% PATCH 3 PATCH TRANSDERM (17:46)
== END 2020-10-19 18:05 | disposition home or self-care (01) ==
LOC: ANHED 17:18 → ANH3MEDSUR 10-19 00:14
PROVIDERS: Emergency Medicine Emergency Medical Services; Nurse Practitioner; Admitting Provider Internal Medicine; Emergency Provider Emergency Medicine; PCP Physician Assistant; Visit Provider Internal Medicine
DX: L03.311 Cellulitis of abdominal wall (principal); J44.1 Chronic obstructive pulmonary disease with (acute) exacerbation; R09.02 Hypoxemia; I11.0 Hypertensive heart disease with heart failure; I50.9 Heart failure, unspecified; E11.9 Type 2 diabetes mellitus without complications; K76.0 Fatty (change of) liver, not elsewhere classified; K80.20 Calculus of gallbladder without cholecystitis without obstruction; K42.9 Umbilical hernia without obstruction or gangrene; S89.91XA Unspecified injury of right lower leg, initial encounter; E66.01 Morbid (severe) obesity due to excess calories; F17.210 Nicotine dependence, cigarettes, uncomplicated
CPT/HCPCS: 36415; 36600; 71275; 74177; 80048; 80053; 81003; 82805; 82948; 83036; 83735; 83880; 84484; 85025; 85380; 85610; 85730; 87040; 87070; 87205; 93005; 93970; 94618; 94640; 96365; 96366; 96367; 96372; 96375; 96376; 99285; A9270; C8929; G0378; G0379; J0743; J1650; J1815; J1940; J2405; J2930; J3370; J3475; J7120; Q9957; Q9967

== ENCOUNTER 2021-02-10 01:31 | Emergency (ER) | payer BC, SELFPAY ==
--- NOTE | ~2021-02-10 | XR_ITS ---
EXAMINATION: XR tibia fibula LT 2V INDICATION: Left lower limb swelling and pain TECHNIQUE: Two views of the left tibia and fibula are obtained. COMPARISON: None available FINDINGS: There is no fracture, dislocation, or subluxation. Bone alignment at the knee and ankle is normal. There is diffuse edema leg. IMPRESSION: 1. Diffuse edema of the left leg without acute osseous abnormality. Reviewed, dictated and finalized at location A.
--- NOTE | ~2021-02-10 | XR_ITS ---
EXAMINATION: XR chest 1V portable INDICATION: Shortness of breath TECHNIQUE: Portable AP chest COMPARISON: 10/06/2018 FINDINGS: The lungs are free of acute opacities. There is no pleural effusion or pneumothorax. The ca rdiomediastinal silhouette is normal. IMPRESSION: 1. No acute cardiopulmonary abnormality. Reviewed, dictated and finalized at location A.
[2021-02-10 01:48] VITALS: PULSE 108; RESP 28; TEMP 37.1; O2SAT 96
[2021-02-10 01:55] VITALS: BP 155/83; PULSE 106
--- NOTE | 2021-02-10 01:56 | ECG_ITS ---
Measurements Intervals [place] Rate: 102 P: 47 MA: 168 QRS: -11 QRSD: 104 T: 60 QT: 334 QTc: 436 Interpretive Statements SINUS TACHYCARDIA BASELINE ARTIFACT- I, II, III, AVR, AVF, V2-V6 BORDERLINE ECG Electronically Signed On 02-10-2021 6:41:50 CDT by César Swanson D.O.
[2021-02-10 02:14] LABS: Basophils Absolute Auto 0.1 K/mm3 (0.0-0.1); Basophils Percent Auto 0.5 % (0.2-1.2); Eosinophils Absolute Auto 0.2 K/mm3 (0-0.3); Hematocrit 36.6 % (42.0-52.0); Hemoglobin 11.3 g/dL (14.0-18.0); Immature Granulocyte Absolute 0.03 K/mm3 (0.00-0.031); Immature Granulocyte Percent A 0.3 % (0-0.5); Lymphocytes Absolute Auto 2.51 K/mm3 (0.9-3.2); Lymphocytes Percent Auto 25.5 % (18.3-44.2); Mean Corpuscular HGB Conc 30.9 g/dl (32-36); Mean Corpuscular Hemoglobin 30.5 pg (26-34); Mean Corpuscular Volume 98.7 fl (80-100); Monocytes Absolute Auto 0.7 K/mm3 (0.1-0.6); Monocytes Percent Auto 7.3 % (2.6-8.5); Neutrophils Absolute Auto 6.3 K/mm3 (1.3-6.7); Neutrophils Percent Auto 64.4 % (45.5-73.1); Platelet Count Result 311 k/mm3 (150-375); Red Blood Count 3.71 M/mm3 (4.6-6.20); Red Cell Distribution Width 14.7 % (11.5-14.5); White Blood Count 9.9 K/mm3 (4.5-10.0)
[2021-02-10 02:19] LABS: Anion Gap 9 mmol/L (8-16); Blood Urea Nitrogen 13 mg/dL (9-20); Calcium 8.5 mg/dL (8.4-10.2); Carbon Dioxide 30 mmol/L (22-30); Chloride 100 mmol/L (98-107); Estimated CRCL calculation 195 ml/min; Estimated Glomerular Filt Rate > 60; Glucose 179 mg/dL (65-110); Potassium 3.7 mmol/L (3.4-5.0); Sodium 139 mmol/L (137-145)
--- NOTE | 2021-02-10 02:23 | PC.NURSE ---
Called lab to add on C-reactive Prot
[2021-02-10 02:31] LABS: INR 0.9; NT Pro B Type Natriuretic Pept 173 pg/mL (5-100); Prothrombin Time 11.6 Seconds (11.1-14.7); Troponin I 0.014 ng/mL (0.000-0.034)
[2021-02-10 02:32] LABS: Partial Thromboplastin Time 29.8 SECONDS (22.3-36.8)
--- NOTE | 2021-02-10 02:43 | ED.LOWEXIN ---
HPI - Extremity Injury (Lower) General Chief Complaint: Shortness of Breath/Dyspnea Stated Complaint: left leg feels like it's about to explode Time Seen by Provider: 02/10/21 01:37 Source: patient and RN notes reviewed Mode of arrival: ambulatory Limitations: no limitations History of Present Illness HPI Narrative: This is a 45 year old male with morbid obesity, HTN, COPD, CHF who presents for evaluation of left leg pain. He was hospitalized 2 weeks ago for left leg cellulitis. He reports he had an ultrasound done that ruled out DVT and he was admitted for IV antibiotics for 4 days. He was discharged with antibiotics and he has completed his antibiotics. He denies fever, chills, nausea or vomiting. He has come to ER due to return of his left leg pain, redness and tenderness. He describes his pain has burning. He reports chronic sob but states it is not any worse. He actually states he is breathing better than when he left hospital because he stopped smoking. He also denies chest pain. He also states he had negative cardiac cath within past month Related Data Home Medications Medication Instructions Recorded Confirmed carvedilol 6.25 mg PO DAILY 10/18/20 10/18/20 diclofenac sodium 75 mg PO DAILY 10/18/20 10/18/20 furosemide 40 mg PO DAILY 10/18/20 10/18/20 meloxicam 15 mg PO DAILY 10/18/20 10/18/20 Allergies Allergy/AdvReac Type Severity Reaction Status Date / Time Penicillins Allergy Mild Unknown Verified 10/18/20 15:30 Review of Systems Review of Systems: All systems reviewed & are unremarkable except as noted in HPI and below PMFSH Past Medical History Medical History Congestive heart failure COPD (chronic obstructive pulmonary disease) DM2 (diabetes mellitus, type 2) Hypertension Tobacco abuse Surgical History Surgical History H/O cardiac catheterization x2 without intervention H/O hernia repair History of tonsillectomy Family History Family History (Updated 10/18/20 @ 20:31 by Radha Palmer RN) Father Diabetes mellitus Other Acute myocardial infarction Social History Social History (Updated 10/18/20 @ 22:25 by Lucia Hatch NP) Social History: the patient stated that he is and that he lives with his 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 He has 4 daughters. He smokes about half pack a cigarettes a day. 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 The patient does not use any alcohol or illicit drugs. He occasionally uses marijuana. The patient desires to be a full code. Smoking packs per day: 0.50 Smoking cigarettes per day: 10.0 Years smoked: 24 Smoking pack-years: 12.00 Smoking status: Current every day smoker Tobacco type: cigarettes Alcohol intake: former Substance use: current Substance use type: marijuana Gender identity (if verbalized by the patient): Male Spiritual care concerns: No Exam Const: General: no acute distress, alert and ill appearing chronically Nutritional Appearance: obese morbidly obese Orientation/consciousness: patient oriented x3 Eyes: EOM: EOMs intact bilaterally Chest: Chest palpation & inspection: normal inspection of the chest Resp: Effort & Inspection: normal respiratory effort, not labored and not tachypneic Auscultation: wheezes Cardio: Rate: regular rate Rhythm: regular rhythm Heart sounds: no murmurs GI: GI Palp: Yes Soft to palpation, No Tenderness to palpation present (GI) and No Guarding due to palpation present (GI) Auscultation: normal bowel sounds Skin: Other: left lower leg from ankle to below knee with mild erythema, tenderness, no drainage, skin is also dry and flaky Neuro: General: patient oriented x3, moves all extremities and CN's II-XI intact bilaterally Extrem: General: edema bilateral (bilateral leg edema, nonpitting
[2021-02-10] MEDS: ceFAZolin 2 GM/D5W 50 ML 2 GM/50 ML BAG IVPB (02:48)
[2021-02-10 03:12] LABS: CRP 2.3 mg/dL (<1.0)
[2021-02-10 03:25] VITALS: BP 162/88; PULSE 102; RESP 20; O2SAT 94
[2021-02-10 03:45] VITALS: BP 160/80; PULSE 101; RESP 20; O2SAT 93
== END 2021-02-10 03:54 | disposition home or self-care (01) ==
PROVIDERS: Emergency Provider General Practice; PCP Physician Assistant
DX: I87.2 Venous insufficiency (chronic) (peripheral) (principal); L03.116 Cellulitis of left lower limb; I11.0 Hypertensive heart disease with heart failure; I50.9 Heart failure, unspecified; J44.9 Chronic obstructive pulmonary disease, unspecified; E11.9 Type 2 diabetes mellitus without complications; F17.210 Nicotine dependence, cigarettes, uncomplicated
CPT/HCPCS: 36415; 71045; 73590; 80048; 83880; 84484; 85025; 85610; 85730; 86140; 93005; 96365; 96375; 99284; J0131; J0690

== ENCOUNTER 2021-03-24 12:26 | Emergency (ER) | payer BC, SELFPAY ==
[2021-03-24] VITALS (21 sets, daily range): BP systolic 106–168; BP diastolic 82–133; PULSE 87–105; RESP 18–33; TEMP 36.3; O2SAT 90–100
--- NOTE | ~2021-03-24 | XR_ITS ---
EXAMINATION: XR chest 2V DATE: 03/24/2021 13:03 INDICATION: Low oxygen saturation. Weight gain. TECHNIQUE: Frontal and lateral views of the chest were obtained on 3 radiographs. COMPARISON: Chest single view 02/10/2021, CT abdomen and pelvis 10/19/2020 FINDINGS: The chest demonstrates clear lungs without pneumonia, pleural effusion, or pneumothorax. Th e heart size is normal. IMPRESSION: 1. No acute cardiopulmonary disease. Reviewed, dictated and finalized at location A. GOODS MARKER
--- NOTE | 2021-03-24 12:37 | ECG_ITS ---
Measurements Intervals [place] Rate: 97 P: 44 CO: 173 QRS: 28 QRSD: 106 T: 56 QT: 334 QTc: 426 Interpretive Statements SINUS RHYTHM BASELINE ARTIFACT- I, II, III, AVL NORMAL ECG Electronically Signed On 03-24-2021 13:11:20 FLOORING MACHINE FEEDER by César Swanson D.O.
--- NOTE | 2021-03-24 14:08 | ED.GENADULT ---
HPI - General Adult General Chief complaint: Shortness of Breath/Dyspnea Stated complaint: difficulty breathing Time Seen by Provider: 03/24/21 13:28 History of Present Illness HPI narrative: 45-year-old male presented to the emergency department for evaluation of shortness of breath. Patient was at outpatient testing for his CPAP when he was found to have a low pulse ox on room air. Patient states he desaturated down to 88% with ambulation. While at rest his oxygen is in the low 90s. Patient states he normally does have some shortness of breath but feels that shortness of breath is worsened. Patient does report associated chest tightness. Patient does normally use his albuterol inhaler in the morning but did not take it this morning due to his running behind for his appointment. Patient states that he does also take Lasix daily but has not been taking his Lasix for the last 3 to 4 days due to being out. Patient has called his primary care physician and is set to have additional Lasix available. Related Data Home Medications Medication Instructions Recorded Confirmed carvedilol 6.25 mg PO DAILY 10/18/20 10/18/20 diclofenac sodium 75 mg PO DAILY 10/18/20 10/18/20 furosemide 40 mg PO DAILY 10/18/20 10/18/20 meloxicam 15 mg PO DAILY 10/18/20 10/18/20 Allergies Allergy/AdvReac Type Severity Reaction Status Date / Time Penicillins Allergy Mild Unknown Verified 10/18/20 15:30 Review of Systems Review of Systems: CONSTITUTIONAL: Denies fever, chills, or sweats. EYES: Denies visual changes, redness, or discharge. ENT: Denies rhinorrhea, congestion, sore throat, or otalgia. CARDIOVASCULAR: Denies chest pain, palpitations. RESPIRATORY: Denies cough but does have shortness of breath. GASTROINTESTINAL: Denies abdominal pain, nausea, vomiting, or diarrhea. GENITOURINARY: Denies dysuria or hematuria. SKIN: Denies rash or itching. Does have lower extremity edema MUSCULOSKELETAL: Denies back pain, joint pain, or myalgia. NEUROLOGIC: Denies headache, numbness, or weakness. PSYCHIATRIC: Denies anxiety or depression. [facility] Past Medical History Medical History Congestive heart failure COPD (chronic obstructive pulmonary disease) DM2 (diabetes mellitus, type 2) Hypertension Tobacco abuse Surgical History Surgical History H/O cardiac catheterization x2 without intervention H/O hernia repair History of tonsillectomy Family History Family History (Updated 10/18/20 @ 20:31 by Radha Palmer RN) Father Diabetes mellitus Other Acute myocardial infarction Social History Social History (Updated 10/18/20 @ 22:25 by Lucia Hatch NP) Social History: the patient stated that he is and that he lives with his 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 He has 4 daughters. He smokes about half pack a cigarettes a day. He was working in a [employer] home and recently got fired due to his illness. The patient does not use any alcohol or illicit drugs. He occasionally uses marijuana. The patient desires to be a full code. Smoking packs per day: 0.50 Smoking cigarettes per day: 10.0 Years smoked: 24 Smoking pack-years: 12.00 Smoking status: Current every day smoker Tobacco type: cigarettes Alcohol intake: former Substance use: current Substance use type: marijuana Gender identity (if verbalized by the patient): Male Spiritual care concerns: No Exam Narrative: APPEARANCE: Well appearing, no pain in distress, well-nourished. Head normocephalic atraumtaic. EYES: PERRLA/EOMI, conjunctivae very clear. NOSE: Normal no drainage EARS:TMS clear Clint Hale, with good light reflex. THROAT: Pharynx clear, no exudate. NECK: Supple. No adenopathy, no masses. RESPIRATORY: Airway patent, respirations nonlabored. Wheezing bilaterally. CARDIOVASCULAR: Regular rate and rhythm without murmurs ru
[2021-03-24] MEDS: ALBUTEROL SULFATE NEB 2.5 MG/0.5 ML INH 5 MG INHALATION (14:24)
[2021-03-24] MEDS: IPRATROPIUM BR 0.02% INH SOLN 0.5 MG/2.5 ML VIAL INHALATION (14:24)
[2021-03-24 14:53] LABS: Basophils Absolute Auto 0.1 K/mm3 (0.0-0.1); Basophils Percent Auto 0.5 % (0.2-1.2); Eosinophils Absolute Auto 0.2 K/mm3 (0-0.3); Eosinophils Percent Auto 1.7 % (0-4.4); Hematocrit 35.5 % (42.0-52.0); Hemoglobin 11.1 g/dL (14.0-18.0); Immature Granulocyte Absolute 0.07 K/mm3 (0.00-0.031); Immature Granulocyte Percent A 0.7 % (0-0.5); Lymphocytes Absolute Auto 1.84 K/mm3 (0.9-3.2); Mean Corpuscular HGB Conc 31.3 g/dl (32-36); Mean Corpuscular Hemoglobin 30.3 pg (26-34); Mean Platelet Volume 9.8 fl (7.4-10.4); Monocytes Absolute Auto 0.5 K/mm3 (0.1-0.6); Monocytes Percent Auto 4.8 % (2.6-8.5); Neutrophils Absolute Auto 7.1 K/mm3 (1.3-6.7); Neutrophils Percent Auto 73.3 % (45.5-73.1); Platelet Count Result 206 k/mm3 (150-375); Red Blood Count 3.66 M/mm3 (4.6-6.20); Red Cell Distribution Width 15.1 % (11.5-14.5); White Blood Count 9.7 K/mm3 (4.5-10.0)
[2021-03-24] MEDS: FUROSEMIDE INJ 40 MG/4 ML VIAL IV PUSH (15:00)
[2021-03-24 15:18] LABS: NT Pro B Type Natriuretic Pept 198 pg/mL (5-100); Troponin I 0.018 ng/mL (0.000-0.034)
[2021-03-24 15:23] LABS: Alanine Aminotransferase 51 U/L (4-50); Albumin Level 3.9 g/dL (3.5-5.1); Alkaline Phosphatase 88 U/L (38-126); Anion Gap 5 mmol/L (8-16); Aspartate Amino Transferase 34 U/L (17-59); Bilirubin,Total 0.3 mg/dL (0.2-1.3); Blood Urea Nitrogen 14 mg/dL (9-20); Calcium 8.8 mg/dL (8.4-10.2); Carbon Dioxide 35 mmol/L (22-30); Chloride 97 mmol/L (98-107); Estimated CRCL calculation 213 ml/min; Estimated Glomerular Filt Rate > 60; Glucose 131 mg/dL (65-110); Potassium 4.3 mmol/L (3.4-5.0); Sodium 137 mmol/L (137-145)
[2021-03-24] MEDS: ALBUTEROL SULFATE NEB 2.5 MG/0.5 ML INH 10 MG INHALATION (15:35)
[2021-03-24 15:50] LABS: INR 0.9
[2021-03-24 15:51] LABS: Partial Thromboplastin Time 26.1 SECONDS (22.3-36.8)
[2021-03-24 16:28] LABS: Anisocytosis 1+ (NORMAL); Platelet Estimate Adequate (Adequate)
[2021-03-24 16:29] LABS: Hypochromasia 1+ (NORMAL)
--- NOTE | 2021-03-24 16:49 | PC.NURSE ---
Pt urinated into the urinal x2, 2000ml total light yellow clear urine
--- NOTE | 2021-03-24 16:58 | PC.NURSE ---
Dr. Momin ordered to monitor o2 sat with ambulation pt o2 sat between 89-95% up and down while walking, Dr. Momin aware
== END 2021-03-24 17:26 | disposition home or self-care (01) ==
PROVIDERS: Emergency Medicine; Emergency Provider Emergency Medicine; PCP Physician Assistant
DX: J44.1 Chronic obstructive pulmonary disease with (acute) exacerbation (principal); R60.9 Edema, unspecified; I11.0 Hypertensive heart disease with heart failure; I50.9 Heart failure, unspecified; E11.9 Type 2 diabetes mellitus without complications; F17.210 Nicotine dependence, cigarettes, uncomplicated
CPT/HCPCS: 36415; 71046; 80053; 83880; 84484; 85025; 85610; 85730; 93005; 94640; 96374; 99284; J1940

== ENCOUNTER 2021-03-30 14:24 | Outpatient (RCR) | payer BC, SELFPAY ==
--- NOTE | 2021-03-30 15:55 | PTOPEVAL ---
Thank you for referring Jerzy Leahy to [facility] The patient is scheduled to be seen for therapy 2 x/week for 8 weeks. Please review, sign, date and return this plan of care BERTHA. I agree with and certify that the following plan of care is medically necessary. Referring Physician Date Attending Provider: Felicia Ramos, PA *PT Outpatient Evaluation Start: 03/30/21 14:36 Freq: Status: Active Protocol: Document 03/30/21 14:36 CAP (Rec: 03/30/21 15:25 CAP [id number]) Therapy Assessment Status Assessment Status Assessment Status Evaluation Outpatient Past Medical History Past Medical History Source of Past Medical History Patient,Recalled from Previous Visit, Confirmed with Patient /Family Neurological History Hx Migraine Yes Cardiovascular History Hx Congestive Heart Failure Yes Hx Other Cardiac Disorders Yes: pt states was told a valve doesn't open properly but, unsure which valve Respiratory History Hx Asthma Yes Hx Chronic Obstructive Pulmonary Disease Yes (COPD) Gastrointestinal History Hx Gastrointestinal Disorders No Significant History Genitourinary History Hx Genitourinary Disorders No Significant History Musculoskeletal History Hx Back Pain Yes Hematological History Hx Hematological Disorders No Significant History Endocrine History Hx Diabetes Yes HEENT History Hx HEENT Disorders No Significant History Integumentary History Hx Cellulitis Yes Reproductive History Hx Reproductive Disorders No Significant History Psychosocial History Hx Bipolar Disorder Yes Hx Other Psychiatric Disorders Yes: Borderline Personality Disorder Pain History History of Any Previous or Ongoing No Significant History Instance of Pain Anesthesia History Hx Anesthesia Reactions No Significant History Evaluation Information Problem Diagnosis low back pain Onset 1 1/2 years Cause fall Additional Evaluation Detail He had back pain prior to his fall, but the fall made it worse. He had pain of 2-3/10 constant before the fall. Subjective Information He slipped off the couch Query Text:As Reported By Patient/ landing on his back. He was Family unable to get off the floor for hours due to pain. He has tried ice and heat without relief.
--- NOTE | 2021-04-05 07:26 | PCPTNOTE ---
Patient called & cancelled scheduled appointment this date due to sickness.
--- NOTE | 2021-04-07 12:00 | PCPTNOTE ---
Pt called and cancelled appointment for 04/07, stating that he has an infection.
--- NOTE | 2021-04-12 08:36 | PCPTNOTE ---
Patient did not show up for scheduled appointment this date. Called & had to leave a message.
--- NOTE | 2021-04-14 16:08 | PCPTNOTE ---
Patient did not show up for scheduled appointment this date. Called patient & he stated he is in the hospital. Explained to him that he will need a new order, to continue therapy.
--- NOTE | 2021-04-19 13:46 | PCPTNOTE ---
Admitting Provider: Attending Provider: Felicia Ramos, PA Patient:Jerzy Leahy Date of :1975 Physical Therapy Discharge Summary Patient has not returned for any further treatments since 03/30/2021, therefore he will be discharged at this time. Patient?s initial visit was on 03/30/2021 14:30 and he 1 visit. The goals have been not met due to Jerzy was seen for only 1 visit. Thank you for referring this patient to [facility]. Please review, sign, date and return this discharge summary BERTHA. I have been updated about the patient's current status and I agree with discharge from the above service at this time. Referring Physician Date
== END 2021-04-20 09:28 | disposition home or self-care (01) ==
LOC: ANHPT 14:24
PROVIDERS: PCP Physician Assistant; Visit Provider Physician Assistant
DX: M54.50 Low back pain, unspecified (principal)
CPT/HCPCS: 97014; 97110; 97163; G0283

== ENCOUNTER 2021-04-09 17:09 | Outpatient (CLI) | payer BC, SELFPAY ==
--- NOTE | ~2021-04-09 | CT_ITS ---
EXAMINATION: CT abdomen pelvis w con DATE: 04/09/2021 20:18 INDICATION: Abdominal pain. Scrotal cellulitis. TECHNIQUE: Computed tomography (CT) of the abdomen and pelvis was performed with 100 mL Omnipaque-350 intravenous contrast. Automated exposure control and iterative reconstruction technique were employe d. The dose-length product was 2522.00 mGy-cm. COMPARISON: 10/19/2020 FINDINGS: Mild bibasilar atelectasis with some respiratory motion artifact. Heart size is normal. No pericardia l or pleural effusion. Diffuse hepatic steatosis. Gallstone at the neck of the decompressed gallbladd er. Some indistinctness to the border between the gallbladder and surrounding fat most likely related to small amount of motion as well as increased malaise secondary to patient body habitus. Acute chol ecystitis would be unlikely in the absence of dilation of the gallbladder. Spleen, pancreas, bilatera l adrenal glands and kidneys are normal. Bowels including the appendix are normal. Bladder is normal. No free intraperitoneal gas or fluid. There is subcutaneous edema throughout the visualized abdomina l wall extending to the anterior wall of the pelvis. Portions of the anterior wall of the abdomen are excluded from the [id number] due to patient body habitus. There is additional subcutaneous edema anterior to the base of the penis. This extends into the scrotum which is markedly swollen with relat ively homogeneous fluid attenuation surrounding the central normal-appearing testes suggesting severe scrotal edema. No discrete abscess or evident soft tissue gas to suggest Dakota's gangrene althoug h the latter is a clinical diagnosis. Mildly enlarged bilateral inguinal lymph nodes which are likely reactive. No pathologically enlarged abdominal or pelvic lymphadenopathy. Minimal to mild spondylosi s in the lumbar and lower thoracic spine. IMPRESSION: 1. Nonspecific severe scrotal edema without evident abscess or soft tissue gas to suggest Dakota's gangrene, the latter which is a clinical diagnosis. 2. Cholelithiasis. Some indistinctness to the wall of the decompressed gallbladder likely due to smal l amount of motion and increased noise related to patient body habitus. Could consider HIDA scan for further evaluation if there is clinical concern for acute cholecystitis. 3. Diffuse hepatic steatosis. Reviewed, dictated and finalized at location . OUT OPERATOR IMPRESSION: 1. Nonspecific severe scrotal edema without evident abscess or soft tissue gas to suggest Dakota's gangrene, the latter which is a clinical diagnosis. 2. Cholelithiasis. Some indistinctness to the wall of the decompressed gallblad ravi likely due to small amount of motion and increased noise related to patient body habitus. Could consider HIDA scan for further evaluation if there is clin ical concern for acute cholecystitis. 3. Diffuse hepatic steatosis.
== END 2021-04-09 17:10 | disposition home or self-care (01) ==
LOC: ANHIMG 04-12 12:14
PROVIDERS: PCP Physician Assistant
DX: K76.0 Fatty (change of) liver, not elsewhere classified (principal); K80.20 Calculus of gallbladder without cholecystitis without obstruction
CPT/HCPCS: 74177; Q9967

== ENCOUNTER 2021-04-12 17:01 | Inpatient (IN) | payer BC, SELFPAY ==
--- NOTE | ~2021-04-12 | CT_ITS ---
EXAMINATION: CTA chest PE protocol DATE: 04/12/2021 22:15 INDICATION: Hypoxemia. Wheezing. History of congestive heart failure, hypertension, COPD, asthma. TECHNIQUE: Computed tomography angiography (CTA) of the chest was performed with 100 mL Omnipaque-350 intravenous contrast timed to evaluate the pulmonary arteries. Coronal maximum intensity projection 3D-reconstructions were created by the technologist. Automated exposure control and iterative reconst ruction technique were employed. Exam dose: 1108.82 mGy-cm total exam DLP. COMPARISON: 04/12/2021 portable AP chest 10/2020 CT pulmonary scan FINDINGS: Soft tissue detail is limited due to body habitus. The pulmonary arteries are moderately opacified, without apparent pulmonary embolus. No thoracic aortic aneurysm. Heart size is borderline. There is minimal right pleural effusion. There is mild predominantly dependent atelectasis in the low er lobes, right greater than left. Small calcified pulmonary granuloma, left lower lobe. No suspicious pulmonary mass lesion is noted. N o pneumothorax. There is mild bilateral hilar lymph node prominence, nonspecific, possibly reactive. It is difficult to determine with certainty whether there are gallstones or cholecystectomy surgical clips at the right upper quadrant due to poor scan detail; recommend clinical correlation with patien t surgical history. Prominent degenerative spurring in the thoracolumbar spine. No suspicious osteolytic or osteoblastic lesions are noted. IMPRESSION: No evidence of pulmonary embolism Limited examination due to body habitus Reviewed, dictated and finalized at Location A. Reviewed, dictated and finalized at location A. T PILE HAMMER OPERATOR
--- NOTE | ~2021-04-12 | XR_ITS ---
XR chest 1V portable DATE: 04/12/2021 20:10 INDICATION: Wheezing. History of COPD, asthma, congestive heart failure, hypertension TECHNIQUE: Portable upright AP apical lordotic view on 04/12/2021 2005 hours COMPARISON: 03/24/2021 PA and lateral chest FINDINGS: There is a limited portable apical lordotic single AP view of the chest. Cardiomegaly. No p ulmonary infiltrate or consolidation, pleural effusion or pneumothorax is evident. Pulmonary vascular ity appears within normal range. IMPRESSION: Cardiomegaly Reviewed, dictated and finalized at location A. MAKING OPERATOR IMPRESSION: Cardiomegaly
[2021-04-12 17:07] VITALS: BP 156/90; PULSE 102; RESP 24; TEMP 36.6; O2SAT 78
[2021-04-12 19:46] VITALS: BP 164/72; PULSE 104; RESP 24; TEMP 36.9; O2SAT 95
--- NOTE | 2021-04-12 20:01 | ED.GENADULT ---
HPI - General Adult General Chief complaint: Urogenital-Male Stated complaint: Swollen Testicles Time Seen by Provider: 04/12/21 19:44 Source: patient Mode of arrival: ambulatory Limitations: no limitations History of Present Illness HPI narrative: Patient presents for evaluation of scrotal swelling. He indicates 8 days ago he noted symptoms called his primary provider. He had an appointment with one of his PCPs partners and had a scrotal ultrasound performed. He indicates he did not hear about the results for several days and was placed on oral antibiotics. He is not sure which medication he was prescribed. He went to [facility] on 04/08/2021 and was admitted. He indicates that he was treated with IV vancomycin. He continued to have scrotal swelling and states he was discharged today. He states lasix was held during his admission. He is not sure what dose of lasix he is on at home but states he takes it once per day. His current pain level is 10 out of 10 in severity, without descriptive quality. He states he is sitting on the toilet in order to urinate as he otherwise cannot push the urine out. Chronic shortness of breath. He states he is in the process of having home O2 approved. He has an underlying history of COPD, asthma, diabetes, and CHF. He recently had a cardiac cath and states that that was normal. He denies any fever, chills, nausea, vomiting, urethral discharge. Home blood sugars have been in the 110's. Patient saturations were in the 70s in the waiting room. He was on placed on 4 L NC and saturations normalized. Related Data Home Medications Medication Instructions Recorded Confirmed carvedilol 6.25 mg PO DAILY 10/18/20 10/18/20 diclofenac sodium 75 mg PO DAILY 10/18/20 10/18/20 furosemide 40 mg PO DAILY 10/18/20 10/18/20 meloxicam 15 mg PO DAILY 10/18/20 10/18/20 Allergies Allergy/AdvReac Type Severity Reaction Status Date / Time Penicillins Allergy Mild Unknown Verified 10/18/20 15:30 Review of Systems Review of Systems: CONSTITUTIONAL: Denies fever, chills, or sweats. EYES: Denies visual changes, redness, or discharge. ENT: Denies rhinorrhea, congestion, sore throat, or otalgia. CARDIOVASCULAR: Reports swelling in bilateral lower extremities, abdomen, scrotum. Denies chest pain, palpitations. RESPIRATORY: Chronic shortness of breath GASTROINTESTINAL: Denies abdominal pain, nausea, vomiting, or diarrhea. GENITOURINARY: Reports scrotal pain, swelling. Reports difficulty urinating SKIN: Denies rash or itching. MUSCULOSKELETAL: Denies back pain, joint pain, or myalgia. NEUROLOGIC: Denies headache, numbness, dizziness, or weakness. PSYCHIATRIC: Denies anxiety or depression. [facility] Past Medical History Medical History Congestive heart failure COPD (chronic obstructive pulmonary disease) DM2 (diabetes mellitus, type 2) Hypertension Tobacco abuse Surgical History Surgical History H/O cardiac catheterization x2 without intervention H/O hernia repair History of tonsillectomy Family History Family History Father Diabetes mellitus Other Acute myocardial infarction Social History Social History Social History: the patient stated that he is and that he lives with his she is a durable power assistant county attorney for healthcare. He has 4 daughters. He smokes about half pack a cigarettes a day. He was working in a [employer] home and recently got fired due to his illness. The patient does not use any alcohol or illicit drugs. He occasionally uses marijuana. The patient desires to be a full code. Smoking packs per day: 0.50 Smoking cigarettes per day: 10.0 Years smoked: 24 Smoking pack-years: 12.00 Smoking status: Current every da
[2021-04-12] MEDS: HYDROcodone/acetaminophen (*CRX) 5-325 MG TABLET 2 TAB PO (20:24)
[2021-04-12] MEDS: ALBUTEROL SULFATE (*SP) INHALER 1 PUFF (20:47)
[2021-04-12] MEDS: ALBUTEROL SULFATE (*SP) AEROSOL 1 PUFF 2 PUFF INHALATION (20:47)
[2021-04-12 20:57] LABS: Basophils Absolute Auto 0.1 K/mm3 (0.0-0.1); Basophils Percent Auto 0.6 % (0.2-1.2); Eosinophils Absolute Auto 0.2 K/mm3 (0-0.3); Eosinophils Percent Auto 1.7 % (0-4.4); Hematocrit 35.7 % (42.0-52.0); Hemoglobin 10.6 g/dL (14.0-18.0); Immature Granulocyte Percent A 1.1 % (0-0.5); Lymphocytes Absolute Auto 1.84 K/mm3 (0.9-3.2); Lymphocytes Percent Auto 19.4 % (18.3-44.2); Mean Corpuscular HGB Conc 29.7 g/dl (32-36); Mean Corpuscular Hemoglobin 28.8 pg (26-34); Mean Platelet Volume 10.6 fl (7.4-10.4); Monocytes Absolute Auto 0.6 K/mm3 (0.1-0.6); Neutrophils Absolute Auto 6.8 K/mm3 (1.3-6.7); Neutrophils Percent Auto 71.2 % (45.5-73.1); Nucleated Red Blood Cells Perc 0.2 % (0.0-0.2); Platelet Count Result 194 k/mm3 (150-375); Red Blood Count 3.68 M/mm3 (4.6-6.20); Red Cell Distribution Width 15.9 % (11.5-14.5); White Blood Count 9.5 K/mm3 (4.5-10.0)
[2021-04-12 21:07] LABS: Prothrombin Time 12.8 Seconds (11.1-14.7)
[2021-04-12 21:08] LABS: Partial Thromboplastin Time 25.3 SECONDS (22.3-36.8)
[2021-04-12 21:10] LABS: Alanine Aminotransferase 160 U/L (4-50); Albumin Level 3.7 g/dL (3.5-5.1); Alkaline Phosphatase 90 U/L (38-126); Anion Gap 0 mmol/L (8-16); Aspartate Amino Transferase 98 U/L (17-59); Bilirubin,Total 0.4 mg/dL (0.2-1.3); Blood Urea Nitrogen 19 mg/dL (9-20); Calcium 8.5 mg/dL (8.4-10.2); Carbon Dioxide 38 mmol/L (22-30); Chloride 97 mmol/L (98-107); Estimated CRCL calculation 191 ml/min; Estimated Glomerular Filt Rate > 60; Glucose 114 mg/dL (65-110); Potassium 4.4 mmol/L (3.4-5.0); Sodium 135 mmol/L (137-145)
[2021-04-12 21:17] LABS: NT Pro B Type Natriuretic Pept 1370 pg/mL (5-100)
[2021-04-12 21:23] VITALS: BP 188/97; PULSE 95; RESP 26; O2SAT 94
[2021-04-12 21:27] VITALS: O2SAT 97
[2021-04-12 21:29] LABS: Troponin I 0.075 ng/mL (0.000-0.034)
--- NOTE | 2021-04-12 21:29 | ECG_ITS ---
Measurements Intervals [place] Rate: 93 P: 58 OH: 180 QRS: 34 QRSD: 102 T: 37 QT: 336 QTc: 420 Interpretive Statements SINUS RHYTHM BORDERLINE T WAVE ABNORMALITY- ANTERIOR LEADS BASELINE ARTIFACT- V4-V6 BORDERLINE ECG Electronically Signed On 04-13-2021 7:35:01 SHOE COVERER by César Swanson D.O.
[2021-04-12 21:32] LABS: Anisocytosis 1+ (NORMAL); Hypochromasia 1+ (NORMAL); Stomatocytes 1+ (NORMAL)
[2021-04-12 21:33] LABS: Platelet Estimate Adequate (Adequate)
[2021-04-12 23:12] VITALS: BP 195/98; PULSE 97; RESP 20; O2SAT 97
[2021-04-12] MEDS: FUROSEMIDE INJ 40 MG/4 ML VIAL IV PUSH (23:13)
[2021-04-12] MEDS: MORPHINE SULFATE (*CRX) 2 MG/ML INJ IV PUSH (23:13)
--- NOTE | 2021-04-12 23:30 | PM.IMHP ---
H&P: HPI History of Present Illness Date/Time: 04/12/21 23:30 Chief Complaint: SCROTAL SWELLING Narrative: This is a 45-year-old male with past medical history significant for morbid obesity, COPD, diastolic heart failure grade 1, gastroesophageal reflux disease, tobacco dependence, type 2 diabetes mellitus. Patient presented to emergency room due to swelling of his scrotum patient had been to his primary care office for these on had an ultrasound of the scrotum performed however did not hear about the results and a was placed on oral antibiotics however no resolution of scrotal edema when to emergency room at [facility] where he was admitted and treated with IV antibiotics he was discharged home but still with significant scrotal swelling which makes it difficult for patient's ambulation as well hence patient presented to our emergency room for further evaluation and treatment of this. In emergency room patient was found to be saturating 70% on room air and was placed on 4 L by nasal cannula. Patient denies any fevers, rigors, chills, nausea, vomiting ,abdominal pain or scrotal pain ,no PND, no orthopnea, but has had bilateral lower extremity swelling. Preliminary workup in the emergency room was significant for slightly elevated troponins, pCO2 61, elevated brain natriuretic peptide. Decision has been made to admit the patient for further evaluation management and treatment. Review of Systems Review of Systems: Scrotal swelling. Constitutional: Constitutional: Denies chills, Denies fever(s) and Denies night sweats Eyes: Eyes: Denies change in vision ENT: Denies dysphagia, Denies nasal congestion, Denies nasal discharge, Denies nasal obstruction and Denies odynophagia Cardiovascular: Cardiovascular: Denies chest pain at rest, Reports leg edema, Denies radiating jaw, neck or arm pain, Denies palpitations, Denies dyspnea, Denies dyspnea on exertion and Denies orthopnea Respiratory: Respiratory: Denies change in phlegm color, Denies cough, Denies excessive phlegm production, Denies dyspnea and Denies wheezing Gastrointestinal: Gastrointestinal: Denies abdominal pain, Denies diarrhea, Denies nausea and Denies vomiting Genitourinary: Genitourinary: Reports scrotal swelling Musculoskeletal: Musculoskeletal: Denies arthralgias, Denies joint swelling and Denies muscle weakness Integumentary/Breasts: Skin/Breast: Denies rash Neurologic: Denies focal weakness and Denies Sensory deficit (Neuro) Psychiatric: Psychiatric: Reports no additional psychiatric complaints and Reports as per HPI Endocrine: Endocrine: Denies cold intolerance, Denies heat intolerance, Denies polyphagia, Denies polydipsia and Denies polyuria Hematologic/Lymphatic: Hematologic/Lymphatic: Reports no additional hematologic/lymphatic complaints and Reports as per HPI Allergic/Immunologic: Allergic/Immunologic: Reports no additional allergic/immunologic complaints and Reports as per HPI [facility] Past Medical History Medical History Congestive heart failure COPD (chronic obstructive pulmonary disease) DM2 (diabetes mellitus, type 2) Hypertension Tobacco abuse Surgical History Surgical History H/O cardiac catheterization x2 without intervention H/O hernia repair History of tonsillectomy Family History Family History Father Diabetes mellitus Other Acute myocardial infarction Social History Social History Social History: the patient stated that he is and that he lives with his she is a durable power bankruptcy attorney for healthcare. He has 4 daughters. He smokes about half pack a cigarettes a day. He was working in a [employer] home and recently got fired due to his illness. The patient does not use any alcohol or illicit
[2021-04-12 23:40] LABS: Troponin I 0.068 ng/mL (0.000-0.034)
[2021-04-13] VITALS (15 sets, daily range): BP systolic 128–144; BP diastolic 64–95; PULSE 88–100; RESP 18–29; TEMP 36.2–36.6; O2SAT 54–100; BMI 62.7
--- NOTE | 2021-04-13 | ECHO_ITS ---
Patient Info Name: Jerzy Leahy Age: 45 years : 1975 Gender: Male Ht: 73 in Wt: 249 lbs BSA: 2.44 m2 HR: 94 bpm BP: 135 / 95 mmHg Heart Rhythm: Sinus Rhythm Exam Date: 04/13/2021 9:05 AM Exam Location: [facility] Pulmonary Patient Status: Inpatient Admit Date: 04/12/2021 Staff Ordering Physician: Bina Padron MD Bullet Slugs Inspector: Jorge Salomon, AJAYCS, RT Attending Provider: Bina Padron MD Referring Physician: Nereida LOMELI; Exam Type: CA echo doppler color flow Study Info Indications R60.1 - Generalized edema Complete two-dimensional, color flow and Doppler transthoracic echocardiogram is performed. Summary 1. Complete two-dimensional, color flow and Doppler transthoracic echocardiogram is performed. 2. Left ventricular chamber dimension is severely enlarged. 3. Left ventricular systolic function is low normal, estimated at 50-55%. 4. There is moderately increased left ventricular wall thickness. 5. The left ventricular diastolic function is abnormal. 6. Left atrial chamber dimension is mildly enlarged. 7. There is mild mitral valve regurgitation. 8. There is mild tricuspid valve regurgitation. 9. Mild pulmonary hypertension, estimated pulmonary arterial systolic pressure is 37 mmHg. 10. There is mild pulmonic regurgitation. 11. The aortic root size at the sinus of Valsalva is mildly dilated. Left Ventricle Left ventricular chamber dimension is severely enlarged. Left ventricular systolic function is low normal, estimated at 50-55%. There is moderately increased left ventricular wall thickness. The left ventricular diastolic function is abnormal. Right Ventricle Right ventricular chamber dimension is normal. Right ventricular systolic function is normal. Left Atria Left atrial chamber dimension is mildly enlarged. Right Atria Right atrial chamber dimension is normal. Atrial Septum Intact interatrial septum visualized by color flow imaging. Aortic Valve The aortic valve is trileaflet. There is no aortic valve sclerosis. There is no aortic valve stenosis. There is trace aortic valve regurgitation. Pulmonic Valve The pulmonic valve is normal. There is no pulmonic valve stenosis. There is mild pulmonic regurgitation. Mitral Valve The mitral valve has normal leaflets. There is no mitral valve stenosis. There is mild mitral valve regurgitation. Tricuspid Valve The tricuspid valve leaflets are normal. There is no significant tricuspid valve stenosis. There is mild tricuspid valve regurgitation. Mild pulmonary hypertension, estimated pulmonary arterial systolic pressure is 37 mmHg. Pericardium/Pleural The pericardium appears normal. There is no pericardial effusion. Inferior Vena Cava Normal inferior vena cava with >50% collapse upon inspiration consistent with normal right atrial pressure, 5 mmHg. Aorta The aortic root size at the sinus of Valsalva is mildly dilated. Left Ventricular Outflow Tract Name Value Normal LVOT 2D LVOT Diameter 2.0 cm LVOT Doppler LVOT Peak Gradient 6 mmHg LVOT Mean Gradient
--- NOTE | 2021-04-13 01:43 | ADMGEN ---
This patient, Jerzy Leahy, was admitted to Virtual Bed 3rd Floor-2. Patient/family oriented to hospital policies and general routines including ID bracelet, bed and alarms, visiting hours, pain management, procedures, bathroom and other care routines, personal items, smoking policy, room service/diet, and visiting hours. Information on how to activate the Rapid Response Team has been discussed. Patient/Family are encouraged to report perceived risks to care and to ask questions if they do not understand what they are told or what they should do.
[2021-04-13 03:49] LABS: Alanine Aminotransferase 156 U/L (4-50); Albumin Level 3.8 g/dL (3.5-5.1); Alkaline Phosphatase 86 U/L (38-126); Aspartate Amino Transferase 83 U/L (17-59); Bilirubin,Total 0.4 mg/dL (0.2-1.3); Blood Urea Nitrogen 17 mg/dL (9-20); Calcium 8.5 mg/dL (8.4-10.2); Carbon Dioxide > 40 mmol/L (22-30); Chloride 94 mmol/L (98-107); Estimated CRCL calculation 191 ml/min; Estimated Glomerular Filt Rate > 60; Glucose 146 mg/dL (65-110); Potassium 4.1 mmol/L (3.4-5.0); Sodium 135 mmol/L (137-145)
[2021-04-13 03:59] LABS: Basophils Absolute Auto 0.1 K/mm3 (0.0-0.1); Basophils Percent Auto 0.7 % (0.2-1.2); Eosinophils Absolute Auto 0.2 K/mm3 (0-0.3); Eosinophils Percent Auto 1.9 % (0-4.4); Hematocrit 37.7 % (42.0-52.0); Hemoglobin 11.2 g/dL (14.0-18.0); Immature Granulocyte Absolute 0.09 K/mm3 (0.00-0.031); Lymphocytes Absolute Auto 1.62 K/mm3 (0.9-3.2); Lymphocytes Percent Auto 18.1 % (18.3-44.2); Mean Corpuscular HGB Conc 29.7 g/dl (32-36); Mean Corpuscular Hemoglobin 28.9 pg (26-34); Mean Corpuscular Volume 97.4 fl (80-100); Mean Platelet Volume 10.4 fl (7.4-10.4); Monocytes Absolute Auto 0.6 K/mm3 (0.1-0.6); Monocytes Percent Auto 6.9 % (2.6-8.5); Neutrophils Absolute Auto 6.4 K/mm3 (1.3-6.7); Neutrophils Percent Auto 71.4 % (45.5-73.1); Platelet Count Result 201 k/mm3 (150-375); Red Blood Count 3.87 M/mm3 (4.6-6.20)
[2021-04-13 04:01] LABS: Troponin I 0.068 ng/mL (0.000-0.034)
[2021-04-13] MEDS: MORPHINE SULFATE (*CRX) 4 MG/ML INJ IV PUSH ×3 (04:42→18:20)
[2021-04-13 05:17] LABS: Platelet Estimate Adequate (Adequate)
[2021-04-13 05:18] LABS: Stomatocytes 1+ (NORMAL)
--- NOTE | 2021-04-13 07:10 | PC.NURSE ---
pt having desats into the 50's while sleeping. arouses easily with o2 increasing back into the 90's. hospitalist to be contacted for bipap orders.
[2021-04-13] MEDS: HEPARIN SODIUM 5,000 UNITS/ML VIAL 5000 UNITS SUB-Q ×3 (07:31→21:03)
[2021-04-13 07:49] LABS: Glucose Point of Care 121 mg/dl (65-105)
--- NOTE | 2021-04-13 08:27 | PC.NURSE ---
pts having desats into the 20's while sleeping. sats increase upon waking. when questioned pt states he does not want intubation unless he is unable to answer my questions. pt alert and oriented x 3. resp at bedside. juan francisco hospitalist contacted and will come see pt
[2021-04-13] MEDS: FUROSEMIDE INJ 40 MG/4 ML VIAL IV PUSH ×2 (09:00→17:49)
[2021-04-13 09:06] LABS: Glucose Point of Care 133 mg/dl (65-105)
[2021-04-13] MEDS: INSULIN ASPART (*BKC) 100 UNITS/ML 10 UNITS SUB-Q (09:13)
--- NOTE | 2021-04-13 09:30 | PC.NURSE ---
juan francisco at bedside
[2021-04-13 12:16] LABS: EDCOVIDSCREEN Negative (Negative)
[2021-04-13 12:24] LABS: Glucose Point of Care 105 mg/dl (65-105)
--- NOTE | 2021-04-13 13:21 | PM.IMPN ---
Progress Note: A&P Assessment and Plan (1) Scrotal swelling: Code(s): N50.89 - Other specified disorders of the male genital organs Status: Acute Assessment and Plan: Patient is fluid overload He was recently admitted and discharged from [facility] where he was treated with IV antibiotics I suspect patient received fluids during this admission at have caused fluid overload Continue diuresing with IV Lasix 40 mg BID Consider urology consult as needed (2) Anasarca: Code(s): R60.1 - Generalized edema Status: Acute Assessment and Plan: Patient with fluid overload recent echocardiogram showed normal ejection fraction Repeat an echocardiogram pending Cardiology consulted I/O Daily weights Tele monitoring (3) Elevated troponin: Code(s): R77.8 - Other specified abnormalities of plasma proteins Status: Acute Assessment and Plan: Patient with left heart catheterization in the past with known stent placement Suspect nonischemic myocardial injury Cardiology consulted (4) Acute hypoxemic respiratory failure: Code(s): J96.01 - Acute respiratory failure with hypoxia Status: Acute Assessment and Plan: Patient is COPD year and has history of tobacco use Albuterol nebulizers schedule Continue oxygen by nasal cannula to keep oxygen saturation 94% Bipap initiated Consult to pulmonary (5) Tobacco abuse: Code(s): Z72.0 - Tobacco use Status: Chronic Assessment and Plan: Nicotine patch as needed (6) COPD (chronic obstructive pulmonary disease): Code(s): J44.9 - Chronic obstructive pulmonary disease, unspecified Status: Chronic Assessment and Plan: Bilateral wheezing Will continue nebulizer treatment (7) DM2 (diabetes mellitus, type 2): Code(s): E11.9 - Type 2 diabetes mellitus without complications Status: Chronic Assessment and Plan: Patient is on metformin at home, hold while inpatient Insulin sliding scale as needed, accuchecks Monitor Subjective Date/time seen: 04/13/21 13:21 Interval history: Pt seen this a.m.; labs, vs, diagnostic results reviewed; nursing staff reports pt O2 sats reading dropping to 40% while sleeping; pt denies any lightheadedness, dizziness, SOB, MONTIEL; sats >95% talking in complete sentences while on room air Review of Systems Review of Systems: All systems reviewed & are unremarkable except as noted in HPI and below Exam Const: General: no acute distress, alert and awake Nutritional Appearance: obese Orientation/consciousness: patient oriented x3 HENMT: Head: normocephalic and atraumatic Ears: hearing grossly normal bilaterally and external ears normal Face and sinus: face symmetric Mouth: Yes Normal oral and palatal mucosa present Eyes: EOM: EOMs intact bilaterally Neck: Neck: full ROM, trachea midline and no JVD Chest: Chest palpation & inspection: normal inspection of the chest Resp: Effort & Inspection: normal respiratory effort Auscultation: wheezes Cardio: Jugular venous distension: no JVD Rate: regular rate Rhythm: regular rhythm Heart sounds: S1 normal heart sound present and S2 normal heart sound present GI: Inspection: normal to inspection GI Palp: Yes Soft to palpation Percussion: Yes normal to percussion Auscultation: normal bowel sounds : General: Yes no CVA tenderness Male General Exam: Yes edema (scrotal ) Urinary Catheter: Urinary Catheter: patent and draining and urine clear Back/Spine/Pelvis: Back: no CVA tenderness Skin: General skin exam: normal color Rashes: no rashes Neuro: General: patient oriented x3 and no focal motor deficits Speech: normal speech Extrem: General: no clubbing, cyanosis or edema Psych: Appearance: grossly normal Affect: normal affect Judgement: Good judgement present (Psych) Objective Data Vital Signs Vital Signs: Vital Signs - 24 hr 04/12/21 17:07 04/12/21 19:46 04/12/21 21
--- NOTE | 2021-04-13 14:49 | PM.CNPUL ---
Assessment and Plan Assessment and plan (1) Acute hypoxemic respiratory failure: Code(s): J96.01 - Acute respiratory failure with hypoxia Status: Acute Assessment and Plan: 45-year-old man with morbid obesity, obesity hypoventilation syndrome, history of tobacco use, presented with scrotal edema, chronic hypercapnic respiratory failure, hypoxemia and lower extremity edema, All related to obesity hypoventilation. Chest CT showed some basal atelectasis but no pulmonary embolism or evidence of lung congestion. There was no evidence of emphysema on chest CT. Patient has history of COPD but no pulmonary function testing is available. I would continue with current BiPAP/auto CPAP and supplemental oxygen to maintain O2 saturation over 92%. Also avoid sedatives. Continue with short-acting bronchodilators p.r.n.. And I would switch to patient to Lovenox 40 mg b.i.d. for DVT prophylaxis. Patient will need to complete his CPAP titration study for sleep disorder breathing, and return to Pulmonary Clinic for evaluation for a history of COPD. (2) Elevated troponin: Code(s): R77.8 - Other specified abnormalities of plasma proteins Status: Acute (3) Scrotal swelling: Code(s): N50.89 - Other specified disorders of the male genital organs Status: Acute (4) DM2 (diabetes mellitus, type 2): Qualifiers: Diabetes mellitus lobsterman insulin use: unspecified lobsterman insulin use status Code(s): E11.9 - Type 2 diabetes mellitus without complications Status: Chronic (5) Morbid obesity: Code(s): E66.01 - Morbid (severe) obesity due to excess calories Status: Acute History of Present Illness History of Present Illness Consult date: 04/13/21 Chief complaint: Anasarca Narrative: This 45-year-old man presented to the emergency room with swelling of his scrotum. The patient has past medical history significant for morbid obesity, diastolic heart failure grade 1, GERD, tobacco dependence type 2 diabetes mellitus. Patient was recently hospitalized at [facility] where he received IV antibiotics presumably for cellulitis. In the emergency room the patient was found to have hypoxemia with O2 saturation at 70%. He has no fever chills nausea vomiting abdominal pain orthopnea. He has had chronic lower extremity pedal edema. The patient told me that he has undergone sleep study sleep isordered breathing but has not had the study for CPAP titration. Currently he is not using any CPAP at home. Arterial blood gases showed hypercapnia with a pCO2 at 61 mmHg and well compensated respiratory acidosis. BNP was also elevated. Currently the patient is on auto CPAP. A chest CT showed basal atelectasis bilaterally but no pulmonary emboli. Review of Systems Review of Systems: All systems reviewed & are unremarkable except as noted in HPI and below ( H&P and below.) [facility] Past Medical History Medical History Congestive heart failure COPD (chronic obstructive pulmonary disease) DM2 (diabetes mellitus, type 2) Hypertension Tobacco abuse Surgical History Surgical History H/O cardiac catheterization x2 without intervention H/O hernia repair History of tonsillectomy Family History Family History Father Diabetes mellitus Other Acute myocardial infarction Social History Social History Social History: the patient stated that he is and that he lives with his she is a durable power mercury recoverer for healthcare. He has 4 daughters. He smokes about half pack a cigarettes a day. He was working in a [employer] home and recently got fired due to his illness. The patient does not use any alcohol or illicit drugs. He occasionally uses mariju
--- NOTE | 2021-04-13 15:56 | PC.NURSE ---
This patient, Jerzy Leahy, was admitted to IMU Room 200-01. Patient/family oriented to hospital policies and general routines including ID bracelet, bed and alarms, visiting hours, pain management, procedures, bathroom and other care routines, personal items, smoking policy, room service/diet, and visiting hours. Information on how to activate the Rapid Response Team has been discussed. Patient/Family are encouraged to report perceived risks to care and to ask questions if they do not understand what they are told or what they should do.
[2021-04-13 17:22] LABS: Glucose Point of Care 120 mg/dl (65-105)
--- NOTE | 2021-04-13 17:39 | PM.CNCAR ---
Assessment and Plan Assessment and plan (1) Congestive heart failure: Code(s): I50.9 - Heart failure, unspecified Status: Chronic Assessment and Plan: Chronic diastolic heart failure and right heart failure. diuresis with 40 mg IV q.12 hours of furosemide. Intake and output. Daily weights. Low-salt diet. 2D echocardiogram Doppler will be ordered and reviewed. Obviously dietary and lifestyle modifications for weight loss or imperative. Carvedilol 6.25 mg p.o. b.i.d.. Daily basic metabolic panel. (2) Tobacco abuse: Code(s): Z72.0 - Tobacco use Status: Chronic Assessment and Plan: Recently stopped. (3) Elevated troponin: Code(s): R77.8 - Other specified abnormalities of plasma proteins Status: Acute Assessment and Plan: Not related to acute coronary syndrome. Discontinue further troponins unless there is a change in clinical status. (4) Scrotal swelling: Code(s): N50.89 - Other specified disorders of the male genital organs Status: Acute Assessment and Plan: Possibly related to the right heart failure. Urology to see. (5) COPD (chronic obstructive pulmonary disease): Code(s): J44.9 - Chronic obstructive pulmonary disease, unspecified Status: Chronic Assessment and Plan: Per pulmonology (6) Hypertension: Code(s): I10 - Essential (primary) hypertension Status: Chronic Assessment and Plan: Continue carvedilol. Add ROSE-inhibitor as needed. History of Present Illness History of Present Illness Consult date/time: 04/13/21 17:39 Requesting physician: Bina Padron MD Consult reason: congestive heart failure Reason For Visit: Anasarca Narrative: Reason for consultation: CHF Date of service 04/13/2021 Requesting provider: Dr. Padron History: Patient is a 45-year-old male who has obesity hypoventilation syndrome, COPD, morbid obesity, and diabetes, tobacco use up until recently who follows with Dr. Edge at [facility]. He came to this hospital because of scrotal edema. He vehemently states that the only reason why he is here is because his scrotum is swollen. He was at [place] receiving antibiotics but he states he was discharged and no better condition than he was at admission so he came to this hospital for further evaluation. In the ER he was found to be saturating in the 70% range. He was on 4 L via nasal cannula. Patient actually denies any chest pain, unusual shortness of breath, syncope, presyncope, paroxysmal nocturnal dyspnea, orthopnea. He does have chronic lower extremity swelling which is not new or worsened per patient. BNP is mildly elevated at 1370. Cardiology consultation was requested. Review of Systems Review of Systems: All systems reviewed & are unremarkable except as noted in HPI and below Constitutional: Constitutional: Denies weakness Eyes: Eyes: Denies blurry vision ENT: Reports Normal hearing present Cardiovascular: Cardiovascular: Denies chest pain Respiratory: Respiratory: Reports dyspnea Gastrointestinal: Gastrointestinal: Denies abdominal pain Genitourinary: Comments: Scrotal edema and pain Musculoskeletal: Musculoskeletal: Denies neck pain Integumentary/Breasts: Skin/Breast: Denies dry skin Neurologic: Denies headache(s) Psychiatric: Psychiatric: Denies anxiety Endocrine: Endocrine: Denies fatigue Hematologic/Lymphatic: Hematologic/Lymphatic: Denies easy bleeding Allergic/Immunologic: Allergic/Immunologic: Denies GI upset with certain foods PMFSH Past Medical History Medical History Congestive heart failure COPD (chronic obstructive pulmonary disease) DM2 (diabetes mellitus, type 2) Hypertension Tobacco abuse Surgical History Surgical History H/O cardiac catheterization x2 without intervention H/O joshua
[2021-04-13 20:29] LABS: Glucose Point of Care 142 mg/dl (65-105)
[2021-04-13] MEDS: HYDROcodone/acetaminophen (*CRX) 5-325 MG TABLET 2 TAB PO (21:02)
[2021-04-14] VITALS (17 sets, daily range): BP systolic 124–150; BP diastolic 64–100; PULSE 80–102; RESP 18–26; TEMP 35.7–37.1; O2SAT 92–100
[2021-04-14] MEDS: MORPHINE SULFATE (*CRX) 4 MG/ML INJ IV PUSH ×4 (00:21→19:52)
--- NOTE | 2021-04-14 01:52 | PM.EVENT ---
Event Note Event Note Event Note: Nursing staff called to notify me that patient was having desaturations into the 50s on auto titrating BiPAP. Subsequently auto titrating BiPAP was discontinued and patient was started on BiPAP with a vision with 18/8 rate of 18 and will wean FiO2 to maintain oxygen saturations.
[2021-04-14] MEDS: HEPARIN SODIUM 5,000 UNITS/ML VIAL 5000 UNITS SUB-Q ×3 (06:37→20:34)
[2021-04-14] MEDS: FUROSEMIDE INJ 40 MG/4 ML VIAL IV PUSH ×2 (09:05→16:45)
[2021-04-14] MEDS: carvediloL 6.25 MG TABLET PO (09:05)
[2021-04-14] MEDS: GABAPENTIN 100 MG CAPSULE PO ×3 (09:06→16:44)
[2021-04-14] MEDS: LOSARTAN POTASSIUM 25 MG TABLET PO (09:06)
[2021-04-14] MEDS: PANTOPRAZOLE 40 MG TABLET PO (09:06)
[2021-04-14] MEDS: buPROPion HCL XL (24 HR) 150 MG TABCR 300 MG PO (09:06)
[2021-04-14] MEDS: ASPIRIN 81 MG CHEWABLE TABLET PO (09:06)
[2021-04-14 09:13] LABS: Glucose Point of Care 107 mg/dl (65-105)
--- NOTE | 2021-04-14 09:26 | PM.PNCARD ---
Progress Note: A&P Assessment and Plan (1) Congestive heart failure: Code(s): I50.9 - Heart failure, unspecified Status: Chronic Assessment and Plan: Chronic diastolic heart failure and right heart failure. diuresis with 40 mg IV q.12 hours of furosemide. Increase carvedilol up to 12.5 mg p.o. b.i.d.. Continue losartan. Daily basic metabolic panel (2) Tobacco abuse: Code(s): Z72.0 - Tobacco use Status: Chronic Assessment and Plan: Recently stopped. (3) Elevated troponin: Code(s): R77.8 - Other specified abnormalities of plasma proteins Status: Acute Assessment and Plan: Not related to acute coronary syndrome. (4) Scrotal swelling: Code(s): N50.89 - Other specified disorders of the male genital organs Status: Acute Assessment and Plan: Possibly related to the right heart failure. Urology to see. (5) COPD (chronic obstructive pulmonary disease): Code(s): J44.9 - Chronic obstructive pulmonary disease, unspecified Status: Chronic Assessment and Plan: Per pulmonology (6) Hypertension: Code(s): I10 - Essential (primary) hypertension Status: Chronic Assessment and Plan: Continue carvedilol. Continue losartan Subjective Date/time seen: 04/14/21 09:26 Interval history: 45-year-old admitted because of scrotal edema Date of service 04/14/2021: He is diuresed over 10 L yesterday. His scrotum is still swollen. He denies any chest pain or shortness of breath. Review of Systems Review of Systems: All systems reviewed & are unremarkable except as noted in HPI and below Constitutional: Constitutional: Denies fatigue, Denies headache(s) and Denies weakness Eyes: Eyes: Denies blurry vision ENT: Reports Normal hearing present, Denies headache(s) and Denies neck pain Cardiovascular: Cardiovascular: Denies chest pain and Reports dyspnea Respiratory: Respiratory: Reports dyspnea Gastrointestinal: Gastrointestinal: Denies abdominal pain Musculoskeletal: Musculoskeletal: Denies neck pain Integumentary/Breasts: Skin/Breast: Denies dry skin Neurologic: Reports Normal hearing present, Denies headache(s) and Denies weakness Psychiatric: Psychiatric: Denies anxiety Endocrine: Endocrine: Denies fatigue Hematologic/Lymphatic: Hematologic/Lymphatic: Denies easy bleeding Allergic/Immunologic: Allergic/Immunologic: Denies GI upset with certain foods Exam Narrative: Awake alert oriented appears to be in no acute distress. Appears stated age Const: General: comfortable and no acute distress HENMT: General nose exam: Normal nares present Eyes: Sclera: sclerae normal Neck: Neck: supple and no JVD Chest: Other: No reproducible chest wall pain to palpation Resp: Auscultation: rhonchi and wheezes Cardio: Rate: regular rate Rhythm: regular rhythm GI: Auscultation: normal bowel sounds : Other: Scrotal edema and redness are noted Skin: General skin exam: normal color Neuro: Cranial nerves: Yes Normal hearing present Cognition (Neuro): normal cognition Speech: normal speech Extrem: General: edema (Mild left leg edema. Trivial right leg edema) Psych: Affect: normal affect Objective Data Vital Signs Vital Signs: Vital Signs - 24 hr 04/13/21 09:30 04/13/21 10:26 04/13/21 13:28 Temperature Pulse Rate 90 90 92 Respiratory Rate 24 H 29 H Blood Pressure Pulse Oximetry 95 92 97 04/13/21 15:54 04/13/21 16:00 04/13/21 16:30 Temperature Pulse Rate 94 93 Respiratory Rate 23 H Blood Pressure 129/84 Pulse Oximetry 97 100 04/13/21 18:00 04/13/21 20:00 04/13/21 21:50 Temperature 36.2 C L Pulse Rate 90 88 94 Respiratory Rate 24 H Blood Pressure 144/78 H Pulse Oximetry 96 04/13/21 23:02 04/14/21 00:00 04/14/21 02:00 Temperature 36.6 C Pulse Rate 90 80 92 Respiratory Rate 24 H 24 H Blood Pressure 136/70 Pulse Oximetry 97 97 04/14/21
[2021-04-14 09:40] LABS: Hematocrit 36.5 % (42.0-52.0); Mean Corpuscular HGB Conc 30.1 g/dl (32-36); Mean Corpuscular Hemoglobin 28.7 pg (26-34); Mean Corpuscular Volume 95.3 fl (80-100); Mean Platelet Volume 9.7 fl (7.4-10.4); Platelet Count Result 209 k/mm3 (150-375); Red Blood Count 3.83 M/mm3 (4.6-6.20); Red Cell Distribution Width 15.8 % (11.5-14.5); White Blood Count 8.1 K/mm3 (4.5-10.0)
[2021-04-14 10:10] LABS: Blood Urea Nitrogen 15 mg/dL (9-20); Calcium 8.5 mg/dL (8.4-10.2); Carbon Dioxide > 40 mmol/L (22-30); Chloride 88 mmol/L (98-107); Estimated CRCL calculation 223 ml/min; Estimated Glomerular Filt Rate > 60; Glucose 135 mg/dL (65-110); Potassium 4.4 mmol/L (3.4-5.0); Sodium 135 mmol/L (137-145)
[2021-04-14 12:26] LABS: Glucose Point of Care 114 mg/dl (65-105)
--- NOTE | 2021-04-14 13:15 | PM.IMPN ---
Progress Note: A&P Assessment and Plan (1) Scrotal swelling: Code(s): N50.89 - Other specified disorders of the male genital organs Status: Acute Assessment and Plan: Patient with fluid overload He was recently admitted and discharged from [facility] where he was treated with IV antibiotics I suspect patient received fluids during this admission at have caused fluid overload Continue diuresing with IV Lasix 40 mg BID Urology consulted (2) Anasarca: Code(s): R60.1 - Generalized edema Status: Acute Assessment and Plan: Patient with fluid overload recent echocardiogram showed normal ejection fraction Repeat an echocardiogram pending Cardiology consulted, recommendations appreciated Carvedilol increased to 12.5 BID per cards I/O Continue IV Lasix Daily weights Tele monitoring (3) Elevated troponin: Code(s): R77.8 - Other specified abnormalities of plasma proteins Status: Acute Assessment and Plan: Patient with left heart catheterization in the past with known stent placement Suspect nonischemic myocardial injury Cardiology consulted (4) Acute hypoxemic respiratory failure: Code(s): J96.01 - Acute respiratory failure with hypoxia Status: Acute Assessment and Plan: Patient is COPD year and has history of tobacco use Albuterol nebulizers schedule Continue oxygen by nasal cannula to keep oxygen saturation 94% Bipap initiated Consult to pulmonary (5) Tobacco abuse: Code(s): Z72.0 - Tobacco use Status: Chronic Assessment and Plan: Nicotine patch as needed (6) COPD (chronic obstructive pulmonary disease): Code(s): J44.9 - Chronic obstructive pulmonary disease, unspecified Status: Chronic Assessment and Plan: Bilateral wheezing Will continue nebulizer treatment (7) DM2 (diabetes mellitus, type 2): Qualifiers: Diabetes mellitus tank terminal gauger insulin use: unspecified mcc insulin use status Code(s): E11.9 - Type 2 diabetes mellitus without complications Status: Chronic Assessment and Plan: Patient is on metformin at home, hold while inpatient Insulin sliding scale as needed, accuchecks Monitor Additional Plan Code status: FULL DVT Ppx: Heparin Subjective Date/time seen: 04/14/21 13:15 Interval history: Pt seen this a.m.; labs, vs, diagnostic results reviewed; nursing staff reports pt O2 sats reading dropping to 40% while sleeping; pt denies any lightheadedness, dizziness, SOB, MONTIEL; sats >95% talking in complete sentences while on room air Review of Systems Review of Systems: All systems reviewed & are unremarkable except as noted in HPI and below Exam Const: General: no acute distress, alert and awake Nutritional Appearance: obese Orientation/consciousness: patient oriented x3 HENMT: Head: normocephalic and atraumatic Ears: hearing grossly normal bilaterally and external ears normal Face and sinus: face symmetric Mouth: Yes Normal oral and palatal mucosa present Eyes: EOM: EOMs intact bilaterally Neck: Neck: full ROM, trachea midline and no JVD Resp: Effort & Inspection: normal respiratory effort Auscultation: wheezes Cardio: Jugular venous distension: no JVD Rate: regular rate Rhythm: regular rhythm Heart sounds: S1 normal heart sound present and S2 normal heart sound present GI: Inspection: obesity GI Palp: Yes Soft to palpation Percussion: Yes normal to percussion Auscultation: normal bowel sounds : General: Yes no CVA tenderness Male General Exam: Yes edema (scrotal ) Urinary Catheter: Urinary Catheter: patent and draining and urine clear Skin: General skin exam: normal color Rashes: no rashes Neuro: General: patient oriented x3 and no focal motor deficits Speech: normal speech Extrem: General: no pedal edema Psych: Appearance: grossly normal Affect: normal affect Judgement: Good judgement present (Psych) Objective Data
--- NOTE | 2021-04-14 15:59 | PM.PNPUL ---
Progress Note: A&P Assessment and Plan (1) Chronic respiratory failure with hypoxia and hypercapnia: Code(s): J96.11 - Chronic respiratory failure with hypoxia; J96.12 - Chronic respiratory failure with hypercapnia Status: Acute Assessment and Plan: Patient with a history of chronic hypercarbic respiratory failure with a blood gas on 10/18/2020 on room air with a pH of 7.36/62/55. Suspect patient has obesity hypoventilation syndrome. I will repeat a blood gas tonight to assess for hypercarbia during the daytime. He also has a history of COPD and history of obstructive sleep apnea. Patient also with a history of 48 pack year tobacco use and may have COPD. Patient is on inhalers at home and intermittently has wheezing. At this time he has no wheezing, no evidence of a COPD exacerbation and no pneumonia. I will continue his Anoro Ellipta 62.5-25 at 1 puff q.day. Will continue nocturnal noninvasive ventilation tonight. Aggressive diuresis per hospitalist team as tolerated by his cardiac and renal systems. Will follow with you. Subjective Date/time seen: 04/14/21 15:59 Interval history: 04/13/21 Chief complaint: Anasarca Narrative: This 45-year-old man presented to the emergency room with swelling of his scrotum. The patient has past medical history significant for morbid obesity, diastolic heart failure grade 1, GERD, tobacco dependence type 2 diabetes mellitus. Patient was recently hospitalized at [facility] where he received IV antibiotics presumably for cellulitis. In the emergency room the patient was found to have hypoxemia with O2 saturation at 70%. He has no fever chills nausea vomiting abdominal pain orthopnea. He has had chronic lower extremity pedal edema. The patient told me that he has undergone sleep study sleep isordered breathing but has not had the study for CPAP titration. Currently he is not using any CPAP at home. Arterial blood gases showed hypercapnia with a pCO2 at 61 mmHg and well compensated respiratory acidosis. BNP was also elevated. Currently the patient is on auto CPAP. A chest CT showed basal atelectasis bilaterally but no pulmonary emboli. 04/14 patient had desaturations last night on auto Pap and was switched to BiPAP rate of 18, pressure is 18/10 resulting in tidal volumes of 485. Patient had an echocardiogram on 04/13 with an LVEF of 50-55%, diastolic dysfunction severe enlargement of the LV, mild enlargement of the LA, mild tricuspid regurg with a pulmonary arterial systolic pressure of 37, mild mitral regurg, RV was normal size and function, right atrium was normal. Patient is currently off the BiPAP and I will check a blood gas later this afternoon to assess for hypercarbia and obesity hypoventilation syndrome. He has diuresed 9 L but has scrotal pain and edema are unchanged. He has no wheezing on Anoro Ellipta. patient tells me that he has had a sleep study in the past and that his number was 114. I am assuming that this is his apnea-hypopnea index but I have no documentation. Patient was never given these test results by a physician and had no CPAP or BiPAP initiated in the past. Patient had a previous blood gas on 10/18/2020 with a room air pH of 7.36/62/65 which shows chronic daytime hypercarbia suggestive of a P obesity hypoventilation syndrome. Patient does tell me that he smoked tobacco from age [age] at 1 and half packs per day For total of 48 pack years and that he intermittently has wheezing. DATA: EXAMINATION: CTA chest PE protocol DATE: 04/12/2021 22:15 INDICATION: Hypoxemia. Wheezing. History of congestive heart failure, hypertension, COPD, asthma. TECHNIQUE: Computed tomography angiography (CTA) of the chest was performed with 100 mL Omnipaque-350 intravenous contrast timed to evaluate the pulmonary arteries. Coronal maximum intensity projection 3D-reconstructions were created by the technologist. Automated exposure
[2021-04-14 17:05] LABS: Alveolar/Arterial O2 Gradient 83.9 mmHg; Base Excess ABG 18.3 mEq/l (+/-2.0); Fractional Inspired Oxygen 32 %; HCO3 ABG 46.4 mEq/l (22.0-26.0); Oxygen Content ABG 15.7 %vol (16.0-22.0); Oxygen Saturation ABG 89.8 % (95.0-100.0); Oxyhemoglobin 89.2 % THb (90.0-100.0); PO2 FiO2 Ratio Arterial Blood 1.84 %; Total Hemoglobin 12.5 g/dL (12.0-18.0); pH ABG 7.422 (7.350-7.450)
[2021-04-14 17:08] LABS: Device NASAL CANNULA; Modified Allen's Test Pass; PCO2 ABG 72.9 mmHg (35.0-45.0); Site Drawn LEFT RADIAL
[2021-04-14 17:12] LABS: Glucose Point of Care 119 mg/dl (65-105)
--- NOTE | 2021-04-14 17:17 | PC.NURSE ---
This patient, Jerzy Leahy, was received from IMU on 04/14/21 at 1715 . Patient/family oriented to unit policies and routines
--- NOTE | 2021-04-14 17:18 | WPDURCON ---
Assessment and Plan Assessment and plan (1) Scrotal swelling: Code(s): N50.89 - Other specified disorders of the male genital organs Status: Acute Assessment and Plan: Massive scrotal edema likely resulting from generalized fluid retention in likely complicated by relative immobility,general debility and poor nutrition. Anticipate this will be a difficult problem and approachable only by vigorous diuresis, scrotal elevation and nutritional support Urology Consult Note HPI Date Seen: 04/14/21 Requesting Physician: Bina Padron MD Primary Care Provider: Felicia Ramos, PA Consult Narrative Narrative: Jerzy Leahy is a 45 year old male who we are asked to see regarding scrotal edema. Patient is a morbidly obese 45-year-old recently discharged from the hospital [facility] were he was admitted and treated IV vancomycin. Specifics about that admission are sketchy, and readily available at this time. He reports 1st noting marked scrotal edema, and congestion with generalized lower extremity edema, approximately 3-4 weeks ago. With supportive care at the outside hospital his extremity edema, reportedly, improved but the scrotal edema persists. He denies obstructive voiding symptoms although urinating in the commode is accomplished only by sitting. Review of Systems Cardiovascular: Cardiovascular: Denies chest pain, Denies lightheadedness, Denies palpitations and Denies dyspnea Respiratory: Respiratory: Denies dyspnea Gastrointestinal: Gastrointestinal: Denies diarrhea, Denies nausea and Denies vomiting Genitourinary: Genitourinary: Denies hematuria and Denies dysuria Endocrine: Endocrine: Denies palpitations PMF Past Medical History Medical History Congestive heart failure COPD (chronic obstructive pulmonary disease) DM2 (diabetes mellitus, type 2) Hypertension Tobacco abuse Surgical History Surgical History H/O cardiac catheterization x2 without intervention H/O hernia repair History of tonsillectomy Family History Family History Father Diabetes mellitus Other Acute myocardial infarction Social History Social History Social History: the patient stated that he is and that he lives with his she is a durable power real estate associate attorney for healthcare. He has 4 daughters. He smokes about half pack a cigarettes a day. 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 The patient does not use any alcohol or illicit drugs. He occasionally uses marijuana. The patient desires to be a full code. Smoking packs per day: 0.50 Smoking cigarettes per day: 10.0 Years smoked: 24 Smoking pack-years: 12.00 Smoking status: Former smoker Tobacco type: cigarettes Alcohol intake: former Substance use: current Substance use type: marijuana Gender identity (if verbalized by the patient): Male Sexual Orientation (if Verbalized by the Patient): Straight or Heterosexual Spiritual care concerns: No Meds Home Medications and Allergies Home Medications Medication Instructions Recorded Confirmed Type carvedilol 6.25 mg PO Q12H 10/18/20 04/13/21 History acetaminophen [Tylenol Extra 500 mg PO Q6H PRN #10 tablet 10/19/20 04/13/21 Rx Strength] albuterol sulfate [ProAir HFA] 2 puff INHALATION QID PRN 30 Days 10/19/20 04/13/21 Rx #8.5 g pantoprazole [Protonix] 40 mg PO QAM 28 Days #28 tablet 10/19/20 04/13/21 Rx albuterol sulfate 2.5 mg INHALATION Q4H PRN 04/13/21 04/13/21 History aspirin 81 mg PO DAILY 04/13/21 04/13/21 History bupropion HCl 300 mg PO QAM 04/13/21 04/13/21 History cefuroxime axetil 500 mg PO BID 04/13/21 04/13/21 History furosemide [Lasix] 40 mg PO BID 04/13/21 04/13/21 History gabapentin
--- NOTE | 2021-04-14 17:19 | PC.NURSE ---
This patient, Jerzy Leahy, was transferred to [facility] on 04/14/21 at 1715. Personal belongings sent with patient. Report given to Yuliana. Appropriate documentation sent with patient.
[2021-04-14] MEDS: UMECLIDINIUM/VILANTEROL 62.5-25 MCG ELLIPTA 1 PUFF INHALATION (20:36)
[2021-04-14] MEDS: carvediloL 12.5 MG TABLET PO (20:39)
[2021-04-14] MEDS: traMADol HCL (*CRX) 50 MG TABLET PO (20:52)
[2021-04-14 21:10] LABS: Glucose Point of Care 121 mg/dl (65-105)
[2021-04-15] VITALS (17 sets, daily range): BP systolic 108–138; BP diastolic 60–83; PULSE 73–107; RESP 18–24; TEMP 35.7–36.7; O2SAT 90–98
[2021-04-15] MEDS: MORPHINE SULFATE (*CRX) 4 MG/ML INJ IV PUSH ×3 (03:28→19:47)
--- NOTE | 2021-04-15 03:49 | PC.NURSE ---
Dr Covington notified pt is becoming very agitated, pulling at arriaga and removing nasal canula/tele, all attempts to redirect pt have chandni unsuccessful. Order for 2.5mg IM zyprexa, if pt continues to pull at arriaga then ordered to remove it. Pt was acting appropriately for a short time and once again became agitated and frequently attempting to remove arriaga. Arriaga catheter removed as ordered, urine yenny/red w/ scant bleeding around urethra at time of removal.
[2021-04-15] MEDS: HEPARIN SODIUM 5,000 UNITS/ML VIAL 5000 UNITS SUB-Q ×3 (06:33→21:20)
[2021-04-15 06:34] LABS: Alveolar/Arterial O2 Gradient 83.9 mmHg; Base Excess ABG 16.6 mEq/l (+/-2.0); Fractional Inspired Oxygen 35 %; HCO3 ABG 45.1 mEq/l (22.0-26.0); Oxygen Content ABG 16.2 %vol (16.0-22.0); Oxygen Saturation ABG 94.5 % (95.0-100.0); Oxyhemoglobin 93.4 % THb (90.0-100.0); PO2 ABG 76.4 mmHg (80.0-100.0); PO2 FiO2 Ratio Arterial Blood 2.18 %; Total Hemoglobin 12.3 g/dL (12.0-18.0); pH ABG 7.387 (7.350-7.450)
[2021-04-15 06:37] LABS: Modified Allen's Test Pass; PCO2 ABG 76.8 mmHg (35.0-45.0); Site Drawn LEFT RADIAL
--- NOTE | 2021-04-15 07:16 | WPDUROPN2 ---
Progress Note: A&P Assessment and Plan (1) Scrotal swelling: Code(s): N50.89 - Other specified disorders of the male genital organs Status: Acute Assessment and Plan: Massive scrotal edema likely resulting from generalized fluid retention in likely complicated by relative immobility,general debility and poor nutrition. Anticipate this will be a difficult problem and approachable only by vigorous diuresis, scrotal elevation and nutritional support 04/15/21 Slight improvement in scrotal edema overnight. Continue with daily weights/diuresis and scrotal elevation. AM labs pending. Subjective Subjective Date/Time Seen: 04/15/21 07:16 Slight improvement in scrotal swelling Review of Systems Cardiovascular: Cardiovascular: Denies chest pain, Denies lightheadedness, Denies palpitations and Denies dyspnea Respiratory: Respiratory: Denies dyspnea Gastrointestinal: Gastrointestinal: Denies diarrhea, Denies nausea and Denies vomiting Genitourinary: Genitourinary: Denies hematuria and Denies dysuria Endocrine: Endocrine: Denies palpitations Exam Const: General: no acute distress Resp: Effort & Inspection: normal respiratory effort GI: Inspection: non-distended GI Palp: No abdominal tenderness and No Guarding due to palpation present (GI) Auscultation: normal bowel sounds : Male General Exam: Yes edema (slight improvement in scrotal edeam / skin with erythema or necrosis) and No erythema Objective Data Vital Signs Vital Signs: Vital Signs - 24 hr 04/14/21 08:00 04/14/21 10:00 04/14/21 12:00 Temperature 96.6 F L 98 F Pulse Rate 89 91 86 Respiratory Rate 23 H 24 H Blood Pressure 136/66 133/64 Pulse Oximetry 96 92 04/14/21 14:00 04/14/21 16:00 04/14/21 16:30 Temperature 96.2 F L Pulse Rate 90 95 95 Respiratory Rate 26 H Blood Pressure 124/100 H Pulse Oximetry 98 04/14/21 18:00 04/14/21 20:00 04/14/21 20:07 Temperature 97.2 F L 96.5 F L Pulse Rate 95 102 H 99 Respiratory Rate 18 20 Blood Pressure 130/67 132/77 Pulse Oximetry 93 93 04/14/21 20:39 04/14/21 21:30 04/15/21 00:00 Temperature Pulse Rate 99 90 94 Respiratory Rate 20 Blood Pressure Pulse Oximetry 97 04/15/21 00:49 04/15/21 03:29 Temperature 96.3 F L Pulse Rate 90 79 Respiratory Rate 20 22 H Blood Pressure 108/60 Pulse Oximetry 97 98 Intake/Output Intake/Output: Intake & Output 04/12/21 04/13/21 04/14/21 04/15/21 23:59 23:59 23:59 23:59 Intake Total 600 3446 390 Output Total 42897 8500 3500 Balance -3860 -5184 -3098 Meds/Results Medications: Active Medications Generic Name Dose Route Start Last Admin Trade Name Freq PRN Reason Stop Dose Admin Acetaminophen 650 mg 04/13/21 13:27 Acetaminophen 325 Mg Tablet PO Q4H PRN Mild Pain (1-3) or Fever Albuterol 2.5 mg 04/14/21 07:22 Albuterol Sulfate Neb 2.5 Mg/3 Ml Inh INHALATION Q4H PRN Shortness Of Breath Aspirin 81 mg 04/14/21 08:00 04/14/21 09:06 Aspirin 81 Mg Chewable Tablet PO 81 mg DAILY@0800 JEANNINE Administration Bupropion HCl 300 mg 04/14/21 09:00 04/14/21 09:06 Bupropion Hcl Xl (24 Hr) 150 Mg Tabcr PO 300 mg QAM JEANNINE Administration Carvedilol 12.5 mg 04/14/21 21:00 04/14/21 20:39 Carvedilol 12.5 Mg Tablet PO 12.5 mg Q12HR JEANNINE Administration Dextrose 12.5 gm 04/13/21 17:28 Dextrose 50% 25 Gm/50 Ml Syringe IV PUSH PRN PRN Hypoglycemia Protocol Furosemide 40 mg 04/13/21 09:00 04/14/21 16:45 Furosemide Inj 40 Mg/4 Ml Vial IV PUSH 40 mg BID JEANNINE Administration Gabapentin 100 mg 04/14/21 09:00 04/14/21 16:44 Gabapentin 100 Mg Capsule PO 100 mg TID JEANNINE Administration Glucagon 1 mg 04/13/21 17:28 Glucagon For Inj 1 Mg Vial IM PRN PRN Hypoglycemia Protocol Glucose 15 gm 04/13/21 17:28 Glucose Oral Gel 15 Gm Of Glucse In 37.5 Gm Tube PO PRN PRN Hypoglycemia
[2021-04-15 07:44] LABS: Glucose Point of Care 107 mg/dl (65-105)
[2021-04-15 07:50] LABS: Non-Invasive Expiratory Pressure 10 CMH2O; Non-Invasive Vent Rate 14 /MIN
[2021-04-15 07:51] LABS: Device NON-INVASIVE VENT
[2021-04-15] MEDS: PANTOPRAZOLE 40 MG TABLET PO (09:08)
[2021-04-15] MEDS: carvediloL 12.5 MG TABLET PO ×2 (09:08→21:17)
[2021-04-15] MEDS: LOSARTAN POTASSIUM 25 MG TABLET PO (09:08)
[2021-04-15] MEDS: GABAPENTIN 100 MG CAPSULE PO ×3 (09:08→16:10)
[2021-04-15] MEDS: FUROSEMIDE INJ 40 MG/4 ML VIAL IV PUSH ×3 (09:08→16:10)
[2021-04-15] MEDS: buPROPion HCL XL (24 HR) 150 MG TABCR 300 MG PO (09:08)
--- NOTE | 2021-04-15 09:44 | PM.PNCARD ---
Progress Note: A&P Assessment and Plan (1) Congestive heart failure: Code(s): I50.9 - Heart failure, unspecified Status: Chronic Assessment and Plan: echo reported enlarged left ventricle with normal LV systolic function and normal RV systolic function. scrotal edema which is not improving yet. I will hold losartan at this time to allow room in blood pressure for diuretics. Increase Lasix from 40 mg IV b.i.d. to t.i.d. add metolazone 2.5 mg b.i.d. monitor renal function on daily basis (2) Tobacco abuse: Code(s): Z72.0 - Tobacco use Status: Chronic Assessment and Plan: Recently stopped. (3) Elevated troponin: Code(s): R77.8 - Other specified abnormalities of plasma proteins Status: Acute Assessment and Plan: Not related to acute coronary syndrome. (4) Scrotal swelling: Code(s): N50.89 - Other specified disorders of the male genital organs Status: Acute Assessment and Plan: Possibly related to the right heart failure. I change the diuretics as above (5) COPD (chronic obstructive pulmonary disease): Code(s): J44.9 - Chronic obstructive pulmonary disease, unspecified Status: Chronic Assessment and Plan: Per pulmonology (6) Hypertension: Code(s): I10 - Essential (primary) hypertension Status: Chronic Assessment and Plan: Continue carvedilol. Continue losartan Subjective Date/time seen: 04/15/21 09:45 Interval history: 04/13/21 Chief complaint: Anasarca Narrative: This 45-year-old man presented to the emergency room with swelling of his scrotum. The patient has past medical history significant for morbid obesity, diastolic heart failure grade 1, GERD, tobacco dependence type 2 diabetes mellitus. Patient was recently hospitalized at [facility] where he received IV antibiotics presumably for cellulitis. In the emergency room the patient was found to have hypoxemia with O2 saturation at 70%. He has no fever chills nausea vomiting abdominal pain orthopnea. He has had chronic lower extremity pedal edema. The patient told me that he has undergone sleep study sleep isordered breathing but has not had the study for CPAP titration. Currently he is not using any CPAP at home. Arterial blood gases showed hypercapnia with a pCO2 at 61 mmHg and well compensated respiratory acidosis. BNP was also elevated. Currently the patient is on auto CPAP. A chest CT showed basal atelectasis bilaterally but no pulmonary emboli. 04/14 patient had desaturations last night on auto Pap and was switched to BiPAP rate of 18, pressure is 18/10 resulting in tidal volumes of 485. Patient had an echocardiogram on 04/13 with an LVEF of 50-55%, diastolic dysfunction severe enlargement of the LV, mild enlargement of the LA, mild tricuspid regurg with a pulmonary arterial systolic pressure of 37, mild mitral regurg, RV was normal size and function, right atrium was normal. Patient is currently off the BiPAP and I will check a blood gas later this afternoon to assess for hypercarbia and obesity hypoventilation syndrome. He has diuresed 9 L but has scrotal pain and edema are unchanged. He has no wheezing on Anoro Ellipta. patient tells me that he has had a sleep study in the past and that his number was 114. I am assuming that this is his apnea-hypopnea index but I have no documentation. Patient was never given these test results by a physician and had no CPAP or BiPAP initiated in the past. Patient had a previous blood gas on 10/18/2020 with a room air pH of 7.36/62/65 which shows chronic daytime hypercarbia suggestive of a P obesity hypoventilation syndrome. Patient does tell me that he smoked tobacco from age [age] at 1 and half packs per day For total of 48 pack years and that he intermittently has wheezing. DATA: EXAMINATION: CTA chest PE protocol DATE: 04/12/2021 22:15 INDICATION: Hypoxemia
[2021-04-15] MEDS: UMECLIDINIUM/VILANTEROL 62.5-25 MCG ELLIPTA 1 PUFF INHALATION (09:46)
[2021-04-15 09:49] LABS: Alanine Aminotransferase 88 U/L (4-50); Albumin Level 3.7 g/dL (3.5-5.1); Alkaline Phosphatase 82 U/L (38-126); Aspartate Amino Transferase 43 U/L (17-59); Bilirubin,Total 0.5 mg/dL (0.2-1.3); Blood Urea Nitrogen 17 mg/dL (9-20); Calcium 8.6 mg/dL (8.4-10.2); Carbon Dioxide > 40 mmol/L (22-30); Chloride 87 mmol/L (98-107); Estimated CRCL calculation 191 ml/min; Estimated Glomerular Filt Rate > 60; Glucose 167 mg/dL (65-110); Sodium 135 mmol/L (137-145)
[2021-04-15 10:04] LABS: Free T4 Free Thyroxine 0.87 ng/mL (0.78-2.19)
[2021-04-15] MEDS: ASPIRIN 81 MG CHEWABLE TABLET PO (10:10)
[2021-04-15] MEDS: metOLazone 2.5 MG TABLET PO ×2 (11:19→16:10)
[2021-04-15 11:42] LABS: Glucose Point of Care 106 mg/dl (65-105)
--- NOTE | 2021-04-15 11:59 | PM.PNPUL ---
Progress Note: A&P Assessment and Plan (1) Chronic respiratory failure with hypoxia and hypercapnia: Code(s): J96.11 - Chronic respiratory failure with hypoxia; J96.12 - Chronic respiratory failure with hypercapnia Status: Acute Assessment and Plan: 04/14 Patient with a history of chronic hypercarbic respiratory failure with a blood gas on 10/18/2020 on room air with a pH of 7.36/62/55. Suspect patient has obesity hypoventilation syndrome. I will repeat a blood gas tonight to assess for hypercarbia during the daytime. He also has a history of COPD and history of obstructive sleep apnea. Patient also with a history of 48 pack year tobacco use and may have COPD. Patient is on inhalers at home and intermittently has wheezing. At this time he has no wheezing, no evidence of a COPD exacerbation and no pneumonia. I will continue his Anoro Ellipta 62.5-25 at 1 puff q.day. Will continue nocturnal noninvasive ventilation tonight. Aggressive diuresis per hospitalist team as tolerated by his cardiac and renal systems. 04/15 04/15 Swelling has improved. Patient with a noninvasive ventilation are last night with a AVAPS mode with a set rate of 14, tidal volume 500, EPAP 10, minimal inspiratory pressure 11, maximal inspiratory pressure 30, 35% and had an ABG prior to removal which demonstrated a pH of 7.39/77/76. Patient had an overnight oximetry on 35% with the above mentioned settings and his baseline saturation was 93%, lowest saturation 75%, time with saturation less than or equal to 88% was 40 minutes. Patient is diuresing well and is -17 L since admission. No wheezes on exam. Patient still with hypercarbia while wearing the AVAPS and I will increase his rate to 20, increase his tidal volume to 550, increase his EPAP to 12 and increase his FiO2 to 40% and repeat an overnight oximetry and ABG. Will follow with you. Subjective Date/time seen: 04/15/21 11:59 Interval history: 04/13/21 Chief complaint: Anasarca Narrative: This 45-year-old man presented to the emergency room with swelling of his scrotum. The patient has past medical history significant for morbid obesity, diastolic heart failure grade 1, GERD, tobacco dependence type 2 diabetes mellitus. Patient was recently hospitalized at [facility] where he received IV antibiotics presumably for cellulitis. In the emergency room the patient was found to have hypoxemia with O2 saturation at 70%. He has no fever chills nausea vomiting abdominal pain orthopnea. He has had chronic lower extremity pedal edema. The patient told me that he has undergone sleep study sleep isordered breathing but has not had the study for CPAP titration. Currently he is not using any CPAP at home. Arterial blood gases showed hypercapnia with a pCO2 at 61 mmHg and well compensated respiratory acidosis. BNP was also elevated. Currently the patient is on auto CPAP. A chest CT showed basal atelectasis bilaterally but no pulmonary emboli. 04/14 patient had desaturations last night on auto Pap and was switched to BiPAP rate of 18, pressure is 18/10 resulting in tidal volumes of 485. Patient had an echocardiogram on 04/13 with an LVEF of 50-55%, diastolic dysfunction severe enlargement of the LV, mild enlargement of the LA, mild tricuspid regurg with a pulmonary arterial systolic pressure of 37, mild mitral regurg, RV was normal size and function, right atrium was normal. Patient is currently off the BiPAP and I will check a blood gas later this afternoon to assess for hypercarbia and obesity hypoventilation syndrome. He has diuresed 9 L but has scrotal pain and edema are unchanged. He has no wheezing on Anoro Ellipta. patient tells me that he has had a sleep study in the past and that his number was 114. I am assuming that this is his apnea-hypopnea index but I have no documentation. Patient was never given these test results by a physician and had no CPAP or BiPAP initiated in
--- NOTE | 2021-04-15 12:52 | PM.IMPN ---
Progress Note: A&P Assessment and Plan (1) Anasarca: Code(s): R60.1 - Generalized edema Status: Acute Assessment and Plan: Benzol Operator increasing diuresis adding metolazone and increasing Lasix to t.i.d. 40 mg IV. Will hold losartan (2) Chronic respiratory failure with hypoxia and hypercapnia: Code(s): J96.11 - Chronic respiratory failure with hypoxia; J96.12 - Chronic respiratory failure with hypercapnia Status: Acute Assessment and Plan: Patient states he is trying to set up home oxygen therapy, need 3 L, currently on 3 L. is also trying to set up a home BiPAP. His pCO2 76 which is significant elevated hours pH is normal suggesting chronic hypercapnia likely from his obesity hypoventilation (3) Morbid obesity: Code(s): E66.01 - Morbid (severe) obesity due to excess calories Status: Acute Assessment and Plan: Patient will need weight loss plan with PCP (4) Scrotal swelling: Code(s): N50.89 - Other specified disorders of the male genital organs Status: Acute Assessment and Plan: Urology consult, patient elevate his scrotum with sling she which she is using a rolled up towel. Patient to start ambulating. Diuresis above (5) Acute hypoxemic respiratory failure: Code(s): J96.01 - Acute respiratory failure with hypoxia Status: Acute Assessment and Plan: Continue to wean oxygen as tolerated, continue IV diuresis for his anasarca fluid overload Additional Plan Diet: Cardiac DVT prophylaxis: Heparin Code status: Full code Disposition: Pending clinical course, continue IV diuresis next 2-3 days before transitioning to p.o. Time Spent With Patient Time with patient: 25 - 35 minutes Subjective Date/time seen: 04/15/21 12:52 Patient seen and examined. He feels well. He is on 3L oxygen, he will need to set up home oxygen therapy. He is also trying to get a home BiPAP machine as well with his sleep apnea. Discussed with Cardiology that he is still significantly overloaded with anasarca. Patient to be started on metolazone and Lasix to be increased to t.i.d. while holding losartan. Continuing nocturnal noninvasive ventilation. With aggressive diuresis needs he likely need to stay in the hospital for another couple days. Patient denies fever, chills, nausea, vomiting, diarrhea. He endorses dyspnea upon exertion. Review of Systems Review of Systems: All systems reviewed & are unremarkable except as noted in HPI and below Exam Narrative: - GENERAL: Morbidly obese male in no acute distress breathing comfortably on 3 L oxygen by nasal cannula - EYES: EOMI. Anicteric. - HENT: Moist mucous membranes. No scleral icterus. - LUNGS: Clear to auscultation bilaterally, no wheezing, rhonchi, or rales. - CARDIOVASCULAR: Regular rate and rhythm. No murmur. No JVD. - ABDOMEN: Soft, non-tender and non-distended. No palpable masses. Many scabs and bruising on abdomen. Significant scrotal edema. - EXTREMITIES: No edema. Peripheral pulses 2+. Non-tender. - NEUROLOGIC: No focal neurological deficits. CN II-XII grossly intact. - PSYCHIATRIC: Awake, Alert and oriented x 3. Appropriate mood and affect. - SKIN: No rashes or lesions. Warm. - LYMPH: No cervical lymphadenopathy. Objective Data Vital Signs Vital Signs: Vital Signs - 24 hr 04/14/21 14:00 04/14/21 16:00 04/14/21 16:30 Temperature 35.7 C L Pulse Rate 90 95 95 Respiratory Rate 26 H Blood Pressure 124/100 H Pulse Oximetry 98 04/14/21 18:00 04/14/21 20:00 04/14/21 20:07 Temperature 36.2 C L 35.8 C L Pulse Rate 95 102 H 99 Respiratory Rate 18 20 Blood Pressure 130/67 132/77 Pulse Oximetry 93 93 04/14/21 20:39 04/14/21 21:30 04/15/21 00:00 Temperature Pulse Rate 99 90 94 Respiratory Rate 20 Blood Pressure Pulse Oximetry 97 04/15/21 00:49 04/15/21 03:29 04/15/21 04:00 Temperature 35.7 C L Pulse Rate 90 79 73 Respiratory Rate 20 22 H Blood Pres
[2021-04-15 16:20] LABS: Glucose Point of Care 105 mg/dl (65-105)
[2021-04-15] MEDS: ALBUTEROL SULFATE NEB 2.5 MG/3 ML INH INHALATION (17:22)
[2021-04-15 22:42] LABS: Glucose Point of Care 164 mg/dl (65-105)
[2021-04-16] VITALS (20 sets, daily range): BP systolic 113–144; BP diastolic 68–87; PULSE 75–99; RESP 16–21; TEMP 36.2–36.6; O2SAT 79–99
[2021-04-16] MEDS: traMADol HCL (*CRX) 50 MG TABLET PO ×2 (05:52→20:33)
[2021-04-16] MEDS: HEPARIN SODIUM 5,000 UNITS/ML VIAL 5000 UNITS SUB-Q ×3 (05:54→21:54)
[2021-04-16 06:16] LABS: Alveolar/Arterial O2 Gradient 127.5 mmHg; Base Excess ABG 17.4 mEq/l (+/-2.0); Fractional Inspired Oxygen 40 %; HCO3 ABG 45.1 mEq/l (22.0-26.0); Oxygen Content ABG 17.5 %vol (16.0-22.0); Oxygen Saturation ABG 95.6 % (95.0-100.0); Oxyhemoglobin 94.1 % THb (90.0-100.0); PO2 ABG 79.2 mmHg (80.0-100.0); PO2 FiO2 Ratio Arterial Blood 1.98 %; Total Hemoglobin 13.2 g/dL (12.0-18.0); pH ABG 7.438 (7.350-7.450)
[2021-04-16 06:17] LABS: Device OTHER DEVICE; Modified Allen's Test Pass; PCO2 ABG 68.3 mmHg (35.0-45.0); Site Drawn LEFT RADIAL
[2021-04-16 06:36] LABS: Hematocrit 39.3 % (42.0-52.0); Mean Corpuscular HGB Conc 30.5 g/dl (32-36); Mean Corpuscular Hemoglobin 28.6 pg (26-34); Mean Corpuscular Volume 93.8 fl (80-100); Platelet Count Result 231 k/mm3 (150-375); Red Blood Count 4.19 M/mm3 (4.6-6.20); Red Cell Distribution Width 15.8 % (11.5-14.5); White Blood Count 10.2 K/mm3 (4.5-10.0)
[2021-04-16 06:50] LABS: Blood Urea Nitrogen 22 mg/dL (9-20); Calcium 9.4 mg/dL (8.4-10.2); Carbon Dioxide > 40 mmol/L (22-30); Chloride 86 mmol/L (98-107); Estimated CRCL calculation 168 ml/min; Estimated Glomerular Filt Rate > 60; Glucose 127 mg/dL (65-110); Magnesium 2.1 mg/dL (1.6-2.3); Potassium 3.8 mmol/L (3.4-5.0); Sodium 135 mmol/L (137-145)
--- NOTE | 2021-04-16 07:14 | PCRCNOTE ---
The pulse ox sensor was disconnected from the apnea monitor
[2021-04-16 07:58] LABS: Glucose Point of Care 115 mg/dl (65-105)
--- NOTE | 2021-04-16 08:17 | PM.PNCARD ---
Progress Note: A&P Additional Plan 45-year-old man with marked volume overload related to obesity hypoventilation/ sleep apnea and chronic COPD as well. He is tolerating aggressive diuresis thus far. This will be continued as long as he is benefitting from it and we do not see evidence of unacceptable pre renal state. No additional cardiac recommendations to make at this time Malvin Parra MD [facility] Subjective Date/time seen: Date of service:04/16/21 08:17 Interval history: Follow-up visit in this 45-year-old man with: Severe case of cor pulmonale due to combination of morbid obesity with sleep apnea, chronic COPD and secondary pulmonary hypertension as result of this. Patient is resting comfortably this morning on BiPAP, no cardiovascular complaints. Patient being aggressively diuresed thus far no road blocks to continuing this in terms of vital signs and azotemia. Exam Const: General: comfortable and no acute distress Other: Massively obese white male on BiPAP supine in bed HENMT: Mouth: Yes moist mucous membranes Eyes: Sclera: sclerae normal Neck: Neck: supple Other: impossible to assess JVD given his body habitus Resp: Effort & Inspection: normal respiratory effort Auscultation: clear to auscultation bilaterally Cardio: Rate: regular rate Rhythm: regular rhythm Other: PMI is of course nonpalpable no cardiac murmurs audible GI: GI Palp: Yes Soft to palpation Auscultation: normal bowel sounds Skin: General skin exam: normal color Extrem: Other: diffuse edema/volume overload. According to other notes improved compared with admission Objective Data Vital Signs Vital Signs: Vital Signs - 24 hr 04/15/21 08:34 04/15/21 09:08 04/15/21 09:09 Temperature Pulse Rate 88 88 88 Respiratory Rate Blood Pressure 138/74 Pulse Oximetry 90 04/15/21 09:58 04/15/21 12:00 04/15/21 14:02 Temperature 36.7 C 36.4 C Pulse Rate 92 96 73 Respiratory Rate 20 18 Blood Pressure 131/68 133/80 Pulse Oximetry 93 95 04/15/21 16:00 04/15/21 17:33 04/15/21 20:00 Temperature 36.5 C Pulse Rate 91 96 103 H Respiratory Rate 18 Blood Pressure 110/79 Pulse Oximetry 97 04/15/21 20:08 04/15/21 21:17 04/15/21 22:15 Temperature 36.4 C Pulse Rate 107 H 107 H 98 Respiratory Rate 18 24 H Blood Pressure 124/83 Pulse Oximetry 93 94 04/16/21 00:00 04/16/21 00:31 04/16/21 04:00 Temperature 36.6 C Pulse Rate 83 85 75 Respiratory Rate 16 Blood Pressure 142/78 H Pulse Oximetry 93 04/16/21 06:00 04/16/21 06:20 Temperature 36.5 C Pulse Rate 89 89 Respiratory Rate 16 21 H Blood Pressure 136/83 Pulse Oximetry 97 97 Intake/Output Intake/Output: Intake & Output 04/13/21 04/14/21 04/15/21 04/16/21 23:59 23:59 23:59 23:59 Intake Total 600 3446 3420 900 Output Total 22086 8500 48504 2700 [facility]9700 -5054 -[id number] -1800 Meds/Results Medications: Active Medications Generic Name Dose Route Start Last Admin Trade Name Freq PRN Reason Stop Dose Admin Acetaminophen 650 mg 04/13/21 13:27 Acetaminophen 325 Mg Tablet PO Q4H PRN Mild Pain (1-3) or Fever Albuterol 2.5 mg 04/14/21 07:22 04/15/21 17:22 Albuterol Sulfate Neb 2.5 Mg/3 Ml Inh INHALATION 2.5 mg Q4H PRN Administration Shortness Of Breath Aspirin 81 mg 04/14/21 08:00 04/15/21 10:10 Aspirin 81 Mg Chewable Tablet PO 81 mg DAILY@0800 JEANNINE Administration Bupropion HCl 300 mg 04/14/21 09:00 04/15/21 09:08 Bupropion Hcl Xl (24 Hr) 150 Mg Tabcr PO 300 mg QAM JEANNINE Administration Carvedilol 12.5 mg 04/14/21 21:00 04/15/21 21:17 Carvedilol 12.5 Mg Tablet PO 12.5 mg Q12HR JEANNINE Administration Dextrose 12.5 gm 04/13/21 17:28 Dextrose 50% 25 Gm/50 Ml Syringe IV PUSH PRN PRN Hypoglycemia Protocol Furosemide 40 mg 04/15/21 13:00 04/15/21 16:10 Furosemide Inj 40 Mg/4 Ml Vial IV PUSH 40 mg TID JEANNINE Administration G
[2021-04-16] MEDS: metOLazone 2.5 MG TABLET PO ×2 (09:01→16:16)
[2021-04-16] MEDS: FUROSEMIDE INJ 40 MG/4 ML VIAL IV PUSH ×3 (09:02→16:16)
[2021-04-16] MEDS: buPROPion HCL XL (24 HR) 150 MG TABCR 300 MG PO (09:02)
[2021-04-16] MEDS: GABAPENTIN 100 MG CAPSULE PO ×3 (09:02→16:16)
[2021-04-16] MEDS: PANTOPRAZOLE 40 MG TABLET PO (09:02)
[2021-04-16] MEDS: ASPIRIN 81 MG CHEWABLE TABLET PO (09:02)
[2021-04-16] MEDS: carvediloL 12.5 MG TABLET PO ×2 (09:02→21:53)
[2021-04-16] MEDS: MORPHINE SULFATE (*CRX) 4 MG/ML INJ IV PUSH ×4 (09:06→21:53)
[2021-04-16] MEDS: UMECLIDINIUM/VILANTEROL 62.5-25 MCG ELLIPTA 1 PUFF INHALATION (09:26)
--- NOTE | 2021-04-16 10:07 | PM.PNPUL ---
Progress Note: A&P Assessment and Plan (1) Chronic respiratory failure with hypoxia and hypercapnia: Code(s): J96.11 - Chronic respiratory failure with hypoxia; J96.12 - Chronic respiratory failure with hypercapnia Status: Acute Assessment and Plan: Patient with obesity hypoventilation syndrome 04/14 Patient with a history of chronic hypercarbic respiratory failure with a blood gas on 10/18/2020 on room air with a pH of 7.36/62/55. Suspect patient has obesity hypoventilation syndrome. I will repeat a blood gas tonight to assess for hypercarbia during the daytime. He also has a history of COPD and history of obstructive sleep apnea. Patient also with a history of 48 pack year tobacco use and may have COPD. Patient is on inhalers at home and intermittently has wheezing. At this time he has no wheezing, no evidence of a COPD exacerbation and no pneumonia. I will continue his Anoro Ellipta 62.5-25 at 1 puff q.day. Will continue nocturnal noninvasive ventilation tonight. Aggressive diuresis per hospitalist team as tolerated by his cardiac and renal systems. 04/15 04/15 Swelling has improved. Patient with a noninvasive ventilation are last night with a AVAPS mode with a set rate of 14, tidal volume 500, EPAP 10, minimal inspiratory pressure 11, maximal inspiratory pressure 30, 35% and had an ABG prior to removal which demonstrated a pH of 7.39/77/76. Patient had an overnight oximetry on 35% with the above mentioned settings and his baseline saturation was 93%, lowest saturation 75%, time with saturation less than or equal to 88% was 40 minutes. Patient is diuresing well and is -17 L since admission. No wheezes on exam. Patient still with hypercarbia while wearing the AVAPS and I will increase his rate to 20, increase his tidal volume to 550, increase his EPAP to 12 and increase his FiO2 to 40% and repeat an overnight oximetry and ABG. 04/16 Patient wore noninvasive ventilation are last night with a AVAPS mode with a set rate of 20, tidal volume 550, EPAP 12, minimal inspiratory pressure 13, maximal inspiratory pressure 30, 40% and had an ABG prior to removal which demonstrated a pH of 7.44/68/79. patient tolerated the settings and said he slept well. Will continue these settings. unfortunately the pulse oximeter sensor was disconnected so the overnight oximetry Provided no data. Patient is diuresing well per hospitalist and cardiology and is -27 L since admission, edema better. No wheezes on exam. I will repeat an overnight oximetry tonight on 40%. Patient will eventually need a home O2 assessment prior to discharge. Inpatient Pulmonary Services will resume on 04/19/2021. Call with questions. Subjective Date/time seen: 04/16/21 10:07 Interval history: 04/13/21 Chief complaint: Anasarca Narrative: This 45-year-old man presented to the emergency room with swelling of his scrotum. The patient has past medical history significant for morbid obesity, diastolic heart failure grade 1, GERD, tobacco dependence type 2 diabetes mellitus. Patient was recently hospitalized at [facility] where he received IV antibiotics presumably for cellulitis. In the emergency room the patient was found to have hypoxemia with O2 saturation at 70%. He has no fever chills nausea vomiting abdominal pain orthopnea. He has had chronic lower extremity pedal edema. The patient told me that he has undergone sleep study sleep isordered breathing but has not had the study for CPAP titration. Currently he is not using any CPAP at home. Arterial blood gases showed hypercapnia with a pCO2 at 61 mmHg and well compensated respiratory acidosis. BNP was also elevated. Currently the patient is on auto CPAP. A chest CT showed basal atelectasis bilaterally but no pulmonary emboli. 04/14 patient had desaturations last night on auto Pap and was switched to BiPAP rate of 18, pressure is 18/10 resulting in tidal volumes of 485.
--- NOTE | 2021-04-16 11:11 | WPDUROPN2 ---
Progress Note: A&P Additional Plan Assessment and Plan (1) Scrotal swelling: Assessment and Plan: Massive scrotal edema likely resulting from generalized fluid retention in likely complicated by relative immobility,general debility and poor nutrition. Anticipate this will be a difficult problem and approachable only by vigorous diuresis, scrotal elevation and nutritional support 04/15/21 Slight improvement in scrotal edema overnight. Continue with daily weights/diuresis and scrotal elevation. AM labs pending. 04/16/21 Patient reports improvement in edema and swelling, discomfort improved. Continues with elevation. Continue with diuresis per hospital medicine. Time Spent With Patient Time with patient: less than 15 minutes Subjective Subjective Date/Time Seen: 04/16/21 11:11 Interval history: ROSA, patient reports some improvement in scrotal swelling and discomfort. I met him last week at [facility] and indeed, his swelling appears improved as does his comfort level. Exam Const: General: cooperative, no acute distress, alert, awake and Physically active; No acute distress Resp: Effort & Inspection: normal respiratory effort, able to speak in complete sentences, normal respiratory pattern and no audible wheezes Cardio: Rate: regular rate, not bradycardic and not tachycardic GI: Inspection: Pannus present : Scrotum: edematous (significant bilateral scrotal edema, no crepitus or fluctuance on exam.) and other (Tenderness significantly improved/erythema resolved compared to last week) Urinary Catheter: Urinary Catheter: patent and draining and urine clear Neuro: General: oriented to person, oriented to place and oriented to time Objective Data Vital Signs Vital Signs: Vital Signs - 24 hr 04/15/21 12:00 04/15/21 14:02 04/15/21 16:00 Temperature 97.6 F Pulse Rate 96 73 91 Respiratory Rate 18 Blood Pressure 133/80 Pulse Oximetry 95 04/15/21 17:33 04/15/21 20:00 04/15/21 20:08 Temperature 97.7 F 97.6 F Pulse Rate 96 103 H 107 H Respiratory Rate 18 18 Blood Pressure 110/79 124/83 Pulse Oximetry 97 93 04/15/21 21:17 04/15/21 22:15 04/16/21 00:00 Temperature Pulse Rate 107 H 98 83 Respiratory Rate 24 H Blood Pressure Pulse Oximetry 94 04/16/21 00:31 04/16/21 04:00 04/16/21 06:00 Temperature 97.9 F 97.7 F Pulse Rate 85 75 89 Respiratory Rate 16 16 Blood Pressure 142/78 H 136/83 Pulse Oximetry 93 97 04/16/21 06:20 04/16/21 09:02 04/16/21 09:28 Temperature Pulse Rate 89 92 Respiratory Rate 21 H Blood Pressure Pulse Oximetry 97 97 Intake/Output Intake/Output: Intake & Output 04/13/21 04/14/21 04/15/21 04/16/21 23:59 23:59 23:59 23:59 Intake Total 600 3446 3420 1140 Output Total 22315 8500 [id number] 2700 [facility]9700 -[id number] [phone] Meds/Results Medications: Active Medications Generic Name Dose Route Start Last Admin Trade Name Freq PRN Reason Stop Dose Admin Acetaminophen 650 mg 04/13/21 13:27 Acetaminophen 325 Mg Tablet PO Q4H PRN Mild Pain (1-3) or Fever Albuterol 2.5 mg 04/14/21 07:22 04/15/21 17:22 Albuterol Sulfate Neb 2.5 Mg/3 Ml Inh INHALATION 2.5 mg Q4H PRN Administration Shortness Of Breath Aspirin 81 mg 04/14/21 08:00 04/16/21 09:02 Aspirin 81 Mg Chewable Tablet PO 81 mg DAILY@0800 JEANNINE Administration Bupropion HCl 300 mg 04/14/21 09:00 04/16/21 09:02 Bupropion Hcl Xl (24 Hr) 150 Mg Tabcr PO 300 mg QAM JEANNNIE Administration Carvedilol 12.5 mg 04/14/21 21:00 04/16/21 09:02 Carvedilol 12.5 Mg Tablet PO 12.5 mg Q12HR JEANNINE Administration Dextrose 12.5 gm 04/13/21 17:28 Dextrose 50% 25 Gm/50 Ml Syringe IV PUSH PRN PRN Hypoglycemia Protocol Furosemide 40 mg 04/15/21 13:00 04/16/21 09:02 Furosemide Inj 40 Mg/4 Ml Vial IV PUSH 40 mg TID JEANNINE Administration Gabapentin 100 mg 04/14/21 09:00 04/16/21 09:02 Gabapentin 100 Mg Capsule P
[2021-04-16 11:41] LABS: Glucose Point of Care 123 mg/dl (65-105)
[2021-04-16] MEDS: EUCERIN CREAM 120 GM JAR 1 APPLIC TOPICAL (11:58)
[2021-04-16] MEDS: ACETAMINOPHEN 325 MG TABLET 650 MG PO (11:59)
--- NOTE | 2021-04-16 15:25 | PM.IMPN ---
Progress Note: A&P Assessment and Plan (1) Chronic respiratory failure with hypoxia and hypercapnia: Code(s): J96.11 - Chronic respiratory failure with hypoxia; J96.12 - Chronic respiratory failure with hypercapnia Status: Acute (2) Scrotal swelling: Code(s): N50.89 - Other specified disorders of the male genital organs Status: Acute (3) Morbid obesity: Code(s): E66.01 - Morbid (severe) obesity due to excess calories Status: Acute (4) Obesity hypoventilation syndrome: Code(s): E66.2 - Morbid (severe) obesity with alveolar hypoventilation Status: Acute (5) Anasarca: Code(s): R60.1 - Generalized edema Status: Acute Additional Plan # anasarca # scrotal edema # chronic respiratory failure with hypoxia hypercapnia # grade 1 diastolic heart failure -cardiology consulted are assisting, history increased to 40 mg IV Lasix t.i.d., urine output was significant 13 L -patient is tolerating the diuretics and will continue as is until his kidney shows signs of azotemia -urology in agreement with diuretics -patient appears to be chronically on oxygen, needs 3 L oxygen therapy -he is encouraged to move, discussed with nurse to try to get a bariatric chair for patient to sit up -pCO2 is 68 -echocardiogram 04/13/2021: LVEF 50-55%, diastolic dysfunction severe enlargement LB # obesity hypoventilation syndrome # morbid obesity -discussed with senior linux unix administrator, plan for nocturnal pulse ox tonight. Patient will likely need home oxygen therapy and we are trying to get trilogy machine for the obesity hypoventilation syndrome -settings as per senior linux unix administrator noninvasive ventilator AVAPS mode rate 20, EPAP 12, tidal volume 550, 40% -senior linux unix administrator requesting overnight pulse oximeter tonight 40%, previous probe had been disconnected overnight -patient needs weight loss plan # nicotine abuse Diet: Cardiac DVT prophylaxis: Heparin Code status: Full code Disposition: Continue IV diuresis Subjective Date/time seen: 04/16/21 15:25 Patient seen and examined. Patient is been increased to t.i.d. diuretics with good improvement of urinary output. His 24 hour output recorded as 3670 input and 13,075 output for net negative 9.4 L in last 24 hours (27 L since admission). This is quite significant, patient otherwise seems to be tolerating it. Will continue as is. Reviewed notes from Cardiology, Urology, pulmonology. Ship'S Engineer plans on repeating overnight pulse oximeter tonight on 40%. He is on AVAPS rate 20, tidal volumes 550, EPAP 12 40%. Patient needs trilogy machine for his obesity hypoventilation syndrome. Patient denies fever, chills, nausea, vomiting, diarrhea. He feels he can take deeper breaths now. We discussed keeping Wadsworth catheter in place with the significant urine output. Review of Systems Review of Systems: All systems reviewed & are unremarkable except as noted in HPI and below Exam Narrative: - GENERAL: Morbidly obese male in no acute distress breathing comfortably on 3 L oxygen by nasal cannula - EYES: EOMI. Anicteric. - HENT: Moist mucous membranes. - LUNGS: Distant lung sounds otherwise clear. - CARDIOVASCULAR: Regular rate and rhythm. - ABDOMEN: Soft, non-tender and non-distended. No palpable masses. Many scabs and bruising on abdomen. Significant scrotal edema, appears to be improving. Wadsworth catheter in place. - EXTREMITIES: No edema. Peripheral pulses 2+. Non-tender. - NEUROLOGIC: No focal neurological deficits. CN II-XII grossly intact. - PSYCHIATRIC: Awake, Alert and oriented x 3. Appropriate mood and affect. - SKIN: No rashes or lesions. Warm. - LYMPH: No cervical lymphadenopathy. Objective Data Vital Signs Vital Signs: Vital Signs - 24 hr 04/15/21 16:00 04/15/21 17:33 04/15/21 20:00 Temperature 36.5 C Pulse Rate 91 96 103 H Respiratory Rate 18 Blood Pressure 110/79 Pulse Oximetry 97 04/15/21 20:08 04/15/21 21:17 04/15/21 22:15 Temperature 3
[2021-04-16 16:19] LABS: Glucose Point of Care 125 mg/dl (65-105)
--- NOTE | 2021-04-16 17:46 | PC.NURSE ---
Patient requested that we add his Virtual reality game to the inventory list. I notified the patient that we are no longer responsible for personal belongings that are brought into the hospital. I notified him that I can make note that he brought it in, but it is the patient's responsibility to keep track of the item. He is agreeable to this and wishes to keep the device in the room.
[2021-04-16 21:21] LABS: Glucose Point of Care 126 mg/dl (65-105)
[2021-04-17] VITALS (17 sets, daily range): BP systolic 128–147; BP diastolic 66–82; PULSE 83–104; RESP 18–22; TEMP 36–36.2; O2SAT 91–99
[2021-04-17] MEDS: MORPHINE SULFATE (*CRX) 4 MG/ML INJ IV PUSH ×4 (00:05→20:25)
[2021-04-17] MEDS: HEPARIN SODIUM 5,000 UNITS/ML VIAL 5000 UNITS SUB-Q ×3 (06:17→20:29)
[2021-04-17 07:56] LABS: Glucose Point of Care 156 mg/dl (65-105)
[2021-04-17 08:08] LABS: Anion Gap 6 mmol/L (8-16); Blood Urea Nitrogen 32 mg/dL (9-20); Calcium 9.8 mg/dL (8.4-10.2); Carbon Dioxide 39 mmol/L (22-30); Chloride 85 mmol/L (98-107); Estimated CRCL calculation 150 ml/min; Estimated Glomerular Filt Rate > 60; Glucose 153 mg/dL (65-110); Magnesium 1.9 mg/dL (1.6-2.3); Potassium 3.9 mmol/L (3.4-5.0); Sodium 130 mmol/L (137-145)
[2021-04-17] MEDS: buPROPion HCL XL (24 HR) 150 MG TABCR 300 MG PO (08:35)
[2021-04-17] MEDS: PANTOPRAZOLE 40 MG TABLET PO (08:37)
[2021-04-17] MEDS: ASPIRIN 81 MG CHEWABLE TABLET PO (08:37)
[2021-04-17] MEDS: GABAPENTIN 100 MG CAPSULE PO ×3 (08:38→17:41)
[2021-04-17] MEDS: metOLazone 2.5 MG TABLET PO ×2 (08:38→17:41)
[2021-04-17] MEDS: FUROSEMIDE INJ 40 MG/4 ML VIAL IV PUSH ×3 (08:38→17:41)
[2021-04-17] MEDS: carvediloL 12.5 MG TABLET PO ×2 (08:38→20:25)
[2021-04-17] MEDS: EUCERIN CREAM 120 GM JAR 1 APPLIC TOPICAL (08:39)
--- NOTE | 2021-04-17 08:42 | PM.PNCARD ---
Progress Note: A&P Additional Plan obesity obstructive sleep apnea with severe cor pulmonale. BMP this morning showing a bit more pre renal azotemia but I think we should continue his diuretic regimen at least 1 more day as it is. Patient understands that his morbid obesity is the underlying central cause of this and is considering bariatric surgery. Apparently his PCPs have made referrals for this already. Malvin Parra MD [facility] Subjective Date/time seen: Date of service:04/17/21 08:42 Interval history: Follow-up visit in this 45-year-old man with: Severe case of cor pulmonale due to combination of morbid obesity with sleep apnea, chronic COPD and secondary pulmonary hypertension as result of this. Patient is resting comfortably this morning on BiPAP, no cardiovascular complaints. Patient being aggressively diuresed thus far no road blocks to continuing this in terms of vital signs and azotemia Date of service 04/17/2021: Patient is awake and alert this morning reports to be much more comfortable has had a vigorous diuresis with the current regimen. Still has scrotal edema is very happy with the resolution of his lower extremity edema.. Exam Narrative: Awake alert oriented appears to be in no acute distress. Appears stated age Const: General: comfortable and no acute distress Other: Massively obese white male on BiPAP supine in bed HENMT: General nose exam: Normal nares present Mouth: Yes moist mucous membranes Eyes: Sclera: sclerae normal Neck: Neck: supple and no JVD Other: impossible to assess JVD given his body habitus Chest: Other: No reproducible chest wall pain to palpation Resp: Effort & Inspection: normal respiratory effort Auscultation: clear to auscultation bilaterally, rhonchi and wheezes Cardio: Rate: regular rate Rhythm: regular rhythm Other: PMI is of course nonpalpable no cardiac murmurs audible GI: Auscultation: normal bowel sounds : Other: Scrotal edema and redness are noted Skin: General skin exam: normal color Neuro: Cranial nerves: Yes Normal hearing present Cognition (Neuro): normal cognition Speech: normal speech Extrem: General: edema (Mild left leg edema. Trivial right leg edema) Other: Skin changes of chronic venous insufficiency edema however pitting edema has largely resolved at this time Psych: Affect: normal affect Objective Data Vital Signs Vital Signs: Vital Signs - 24 hr 04/16/21 09:02 04/16/21 09:10 04/16/21 09:12 Temperature Pulse Rate 92 Respiratory Rate Blood Pressure Pulse Oximetry 79 L 91 04/16/21 09:28 04/16/21 09:45 04/16/21 12:00 Temperature 36.2 C L Pulse Rate 95 94 Respiratory Rate 16 Blood Pressure 144/78 H Pulse Oximetry 97 94 04/16/21 13:30 04/16/21 16:00 04/16/21 17:25 Temperature 36.2 C L 36.6 C Pulse Rate 93 95 96 Respiratory Rate 16 16 Blood Pressure 114/68 136/85 Pulse Oximetry 94 94 04/16/21 19:11 04/16/21 20:00 04/16/21 21:53 Temperature 36.6 C Pulse Rate 90 99 88 Respiratory Rate 20 Blood Pressure 113/87 Pulse Oximetry 96 96 04/16/21 23:30 04/16/21 23:53 04/17/21 00:00 Temperature 36.2 C L Pulse Rate 92 98 97 Respiratory Rate 18 20 Blood Pressure 114/70 Pulse Oximetry 99 94 04/17/21 03:20 04/17/21 04:00 04/17/21 06:00 Temperature 36.0 C L Pulse Rate 92 91 Respiratory Rate 20 22 H Blood Pressure 139/79 Pulse Oximetry 96 04/17/21 07:51 Temperature Pulse Rate Respiratory Rate Blood Pressure Pulse Oximetry 96 Intake/Output Intake/Output: Intake & Output 04/14/21 04/15/21 04/16/21 04/17/21 23:59 23:59 23:59 23:59 Intake Total 3446 3420 3240 800 Output Total 8432 34361 [id number] 550 [facility] -[phone] 250 Meds/Results Medications: Active Medications Generic Name Dose Route Start Last Admin Trade Name Freq PRN Reason Stop Dose Admin Acetaminophen 650 mg 04/13/21 13:27 04/16/21 11:59 Acetamin
[2021-04-17 11:51] LABS: Glucose Point of Care 144 mg/dl (65-105)
--- NOTE | 2021-04-17 15:10 | PM.IMPN ---
Progress Note: A&P Assessment and Plan (1) Obesity hypoventilation syndrome: Code(s): E66.2 - Morbid (severe) obesity with alveolar hypoventilation Status: Acute (2) Chronic respiratory failure with hypoxia and hypercapnia: Code(s): J96.11 - Chronic respiratory failure with hypoxia; J96.12 - Chronic respiratory failure with hypercapnia Status: Acute (3) Morbid obesity: Code(s): E66.01 - Morbid (severe) obesity due to excess calories Status: Acute (4) Scrotal swelling: Code(s): N50.89 - Other specified disorders of the male genital organs Status: Acute (5) Anasarca: Code(s): R60.1 - Generalized edema Status: Acute Additional Plan # anasarca # scrotal edema # chronic respiratory failure with hypoxia hypercapnia # grade 1 diastolic heart failure -cardiology increased to 40 mg IV Lasix t.i.d., urine output was significant 5L output net last 24 hrs -patient is tolerating the diuretics and will continue as is until his kidney shows signs of azotemia -urology in agreement with diuretics -patient appears to be chronically on oxygen, needs 3 L oxygen therapy -he is encouraged to move, discussed with nurse to try to get a bariatric chair for patient to sit up -echocardiogram 04/13/2021: LVEF 50-55%, diastolic dysfunction severe enlargement LB # obesity hypoventilation syndrome # morbid obesity -discussed with air cargo specialist supervisor, plan for nocturnal pulse ox tonight. Patient will likely need home oxygen therapy and we are trying to get trilogy machine for the obesity hypoventilation syndrome -settings as per air cargo specialist supervisor noninvasive ventilator AVAPS mode rate 20, EPAP 12, tidal volume 550, 40% -air cargo specialist supervisor requesting overnight pulse oximeter tonight 40%, previous probe had been disconnected overnight -patient needs weight loss plan -umeclidinium -out of bed, encourage ambulation # nicotine abuse -will give nicotine patch if needed -Continue home bupropion # type 2 diabetes -holding home metformin -sliding scale insulin, Accu-Cheks a.c. HS, hypoglycemia protocol # decubitus ulcer -around his penis and scrotum with significant edema and swelling, in between skin folds -placing some Eucerin lotion over the wounds Diet: Cardiac DVT prophylaxis: Heparin Code status: Full code Disposition: Continue IV diuresis Subjective Date/time seen: 04/17/21 15:10 Patient seen examined. He is doing well today. He lost another 5 L net negative fluid output. Continue diuresis today as his kidneys are tolerating. Will re-evaluate tomorrow. He is having some pain around his penis may be secondary to pressure ulcer, will place lotion over wound. Patient denies fever, chills, nausea, vomiting, diarrhea, chest pain, shortness of breath. Review of Systems Review of Systems: All systems reviewed & are unremarkable except as noted in HPI and below Exam Narrative: - GENERAL: Morbidly obese male in no acute distress breathing comfortably on 3 L oxygen by nasal cannula - EYES: EOMI. Anicteric. - HENT: Moist mucous membranes. - LUNGS: Distant lung sounds otherwise clear. - CARDIOVASCULAR: Regular rate and rhythm. - ABDOMEN: Soft, non-tender and non-distended. No palpable masses. Many scabs and bruising on abdomen. - : Significant scrotal edema, appears to be improving. Wadsworth catheter in place. Small decubitus wound around penis - EXTREMITIES: No edema. Peripheral pulses 2+. Non-tender. - NEUROLOGIC: No focal neurological deficits. CN II-XII grossly intact. - PSYCHIATRIC: Awake, Alert and oriented x 3. Appropriate mood and affect. - SKIN: No rashes or lesions. Warm. - LYMPH: No cervical lymphadenopathy. Objective Data Vital Signs Vital Signs: Vital Signs - 24 hr 04/16/21 16:00 04/16/21 17:25 04/16/21 19:11 Temperature 36.6 C 36.6 C Pulse Rate 95 96 90 Respiratory Rate 16 20 Blood Pressure 136/85 113/87 Pulse Oximetry 94 96 04/16/21 20:00 04/16/21 21:53 04/16/21 23:30 T
[2021-04-17 16:31] LABS: Glucose Point of Care 146 mg/dl (65-105)
[2021-04-17 22:57] LABS: Glucose Point of Care 178 mg/dl (65-105)
[2021-04-18] VITALS (13 sets, daily range): BP systolic 130–152; BP diastolic 69–96; PULSE 80–102; RESP 18–22; TEMP 35.6–36.4; O2SAT 94–98
[2021-04-18] MEDS: MORPHINE SULFATE (*CRX) 4 MG/ML INJ IV PUSH ×5 (03:36→21:55)
[2021-04-18 06:19] LABS: Hemoglobin 13.3 g/dL (14.0-18.0); Mean Corpuscular HGB Conc 30.9 g/dl (32-36); Mean Corpuscular Volume 90.5 fl (80-100); Mean Platelet Volume 10.3 fl (7.4-10.4); Platelet Count Result 250 k/mm3 (150-375); Red Blood Count 4.75 M/mm3 (4.6-6.20); Red Cell Distribution Width 15.6 % (11.5-14.5); White Blood Count 16.7 K/mm3 (4.5-10.0)
[2021-04-18] MEDS: HEPARIN SODIUM 5,000 UNITS/ML VIAL 5000 UNITS SUB-Q ×3 (06:31→21:59)
[2021-04-18 06:32] LABS: Anion Gap 10 mmol/L (8-16); Blood Urea Nitrogen 35 mg/dL (9-20); Calcium 9.5 mg/dL (8.4-10.2); Carbon Dioxide 38 mmol/L (22-30); Chloride 81 mmol/L (98-107); Estimated CRCL calculation 137 ml/min; Estimated Glomerular Filt Rate > 60; Glucose 161 mg/dL (65-110); Potassium 3.3 mmol/L (3.4-5.0); Sodium 129 mmol/L (137-145)
[2021-04-18 07:58] LABS: Glucose Point of Care 162 mg/dl (65-105)
[2021-04-18] MEDS: UMECLIDINIUM/VILANTEROL 62.5-25 MCG ELLIPTA 1 PUFF INHALATION (08:34)
--- NOTE | 2021-04-18 11:24 | PM.PNCARD ---
Progress Note: A&P Additional Plan 45-year-old man with tremendous volume overload related to untreated slow obesity sleep apnea and cor pulmonale. He is markedly better with dramatic improvement in volume overload. We will continue aggressive diuresis for the time being. Patient states that his discharge it is to be determined by my service. I do not perceive this to primarily be a cardiac problem. He has massive volume overload due to untreated sleep apnea obesity and cor pulmonale. I would continue diuresing him at least for another day but he will certainly not be euvolemic at the time of discharge. Aggressive treatment of his sleep apnea and bariatric surgery need to be considered which are services of course that we do not provide here at [facility] Malvin Parra MD [facility] Subjective Date/time seen: Date of service:04/18/21 11:24 Interval history: Follow-up visit in this 45-year-old man with: Severe case of cor pulmonale due to combination of morbid obesity with sleep apnea, chronic COPD and secondary pulmonary hypertension as result of this. Patient is resting comfortably this morning on BiPAP, no cardiovascular complaints. Patient being aggressively diuresed thus far no road blocks to continuing this in terms of vital signs and azotemia Date of service 04/17/2021: Patient is awake and alert this morning reports to be much more comfortable has had a vigorous diuresis with the current regimen. Still has scrotal edema is very happy with the resolution of his lower extremity edema.. Date of service 04/18/2021: No new complaints today. Patient continues to be comfortable and happy with the results of his diuresis. His scrotal edema is now obviously decreasing as well. Metabolic profile today does not show any significant pre renal azotemia Exam Narrative: Awake alert oriented appears to be in no acute distress. Appears stated age Const: General: comfortable and no acute distress Other: Massively obese white male on BiPAP supine in bed HENMT: General nose exam: Normal nares present Mouth: Yes moist mucous membranes Eyes: Sclera: sclerae normal Neck: Neck: supple and no JVD Other: impossible to assess JVD given his body habitus Chest: Other: No reproducible chest wall pain to palpation Resp: Effort & Inspection: normal respiratory effort Auscultation: clear to auscultation bilaterally, rhonchi and wheezes Cardio: Rate: regular rate Rhythm: regular rhythm Other: PMI is of course nonpalpable no cardiac murmurs audible GI: Auscultation: normal bowel sounds : Other: Scrotal edema and redness are noted Skin: General skin exam: normal color Neuro: Cranial nerves: Yes Normal hearing present Cognition (Neuro): normal cognition Speech: normal speech Extrem: General: edema (Mild left leg edema. Trivial right leg edema) Other: Skin changes of chronic venous insufficiency edema however pitting edema has largely resolved at this time Psych: Affect: normal affect Objective Data Vital Signs Vital Signs: Vital Signs - 24 hr 04/17/21 12:00 04/17/21 14:25 04/17/21 16:00 Temperature 36.2 C L Pulse Rate 101 H 83 93 Respiratory Rate 20 Blood Pressure 130/66 Pulse Oximetry 95 04/17/21 18:05 04/17/21 20:00 04/17/21 20:25 Temperature 36.2 C L Pulse Rate 104 H 101 H 104 H Respiratory Rate 18 Blood Pressure 133/79 Pulse Oximetry 91 04/17/21 20:30 04/17/21 22:00 04/18/21 00:00 Temperature 36.1 C L Pulse Rate 103 H 92 Respiratory Rate 20 Blood Pressure 147/76 H Pulse Oximetry 99 99 04/18/21 02:00 04/18/21 04:00 04/18/21 06:00 Temperature 36.1 C L 36.0 C L Pulse Rate 99 89 90 Respiratory Rate 18 18 Blood Pressure 136/96 H 152/85 H Pulse Oximetry 96 96 04/18/21 10:00 Temperature 36.1 C L Pulse Rate 96 Respiratory Rate 20 Blood Pressure 145/78 H Pulse Oximetry 98 Intake/Output Intake/Output: Intake & Output 04/15/2103/19
[2021-04-18] MEDS: buPROPion HCL XL (24 HR) 150 MG TABCR 300 MG PO (11:32)
[2021-04-18] MEDS: ASPIRIN 81 MG CHEWABLE TABLET PO (11:32)
[2021-04-18] MEDS: FUROSEMIDE INJ 40 MG/4 ML VIAL IV PUSH ×3 (11:33→17:21)
[2021-04-18] MEDS: metOLazone 2.5 MG TABLET PO ×2 (11:33→17:23)
[2021-04-18] MEDS: GABAPENTIN 100 MG CAPSULE PO ×3 (11:33→17:22)
[2021-04-18] MEDS: carvediloL 12.5 MG TABLET PO ×2 (11:33→20:04)
[2021-04-18] MEDS: PANTOPRAZOLE 40 MG TABLET PO (11:34)
[2021-04-18 11:44] LABS: Glucose Point of Care 209 mg/dl (65-105)
[2021-04-18] MEDS: POTASSIUM CHLORIDE 20 MEQ TABLET 40 MEQ PO (13:11)
[2021-04-18] MEDS: INSULIN ASPART (*BKC) 100 UNITS/ML SUB-Q (13:12)
[2021-04-18] MEDS: ONDANSETRON INJ 4 MG/2 ML VIAL IV PUSH ×2 (15:12→20:02)
--- NOTE | 2021-04-18 16:25 | PM.IMPN ---
Progress Note: A&P Assessment and Plan (1) Obesity hypoventilation syndrome: Code(s): E66.2 - Morbid (severe) obesity with alveolar hypoventilation Status: Acute (2) Chronic respiratory failure with hypoxia and hypercapnia: Code(s): J96.11 - Chronic respiratory failure with hypoxia; J96.12 - Chronic respiratory failure with hypercapnia Status: Acute (3) Morbid obesity: Code(s): E66.01 - Morbid (severe) obesity due to excess calories Status: Acute (4) Anasarca: Code(s): R60.1 - Generalized edema Status: Acute (5) Scrotal swelling: Code(s): N50.89 - Other specified disorders of the male genital organs Status: Acute Additional Plan # anasarca # scrotal edema # chronic respiratory failure with hypoxia hypercapnia # grade 1 diastolic heart failure -cardiology increased to 40 mg IV Lasix t.i.d., urine output was significant 5L output net last 24 hrs -patient is tolerating the diuretics and will continue as is until his kidney shows signs of azotemia, he is showing signs of hyponatremia likely secondary to all the diuresis -urology in agreement with diuretics -patient appears to be chronically on oxygen, needs 3 L oxygen therapy, will make sure he has 3 L home oxygen therapy -he is encouraged to move, discussed with nurse to try to get a bariatric chair for patient to sit up -echocardiogram 04/13/2021: LVEF 50-55%, diastolic dysfunction severe enlargement LB -remove Wadsworth catheter # hyponatremia -likely secondary to diuresis, will trend # obesity hypoventilation syndrome # morbid obesity -discussed with school counsellor, plan for nocturnal pulse ox tonight. Patient will likely need home oxygen therapy and we are trying to get trilogy machine for the obesity hypoventilation syndrome -settings as per school counsellor noninvasive ventilator AVAPS mode rate 20, EPAP 12, tidal volume 550, 40% -school counsellor requesting overnight pulse oximeter tonight 40%, previous probe had been disconnected overnight -patient needs weight loss plan -umeclidinium -out of bed, encourage ambulation # nicotine abuse -will give nicotine patch if needed -Continue home bupropion # type 2 diabetes -holding home metformin -sliding scale insulin, Accu-Cheks a.c. HS, hypoglycemia protocol # decubitus ulcer -around his penis and scrotum with significant edema and swelling, in between skin folds -placing some Eucerin lotion over the wounds Diet: Cardiac DVT prophylaxis: Heparin Code status: Full code Disposition: Continue IV diuresis, Plan to discharge home with home health once we have appropriate DME set up trilogy machine Subjective Date/time seen: 04/18/21 16:25 Patient seen and examined. He is doing well no new complaints. Continues to diurese, -5 L. Will remove Wadsworth catheter out today and he can use urinal. Cardiology would like to continue aggressive diuresis. Software Manager evaluate patient tomorrow. His sodium is starting to drop, likely secondary to diuresis. He clinically is markedly better and is more mobile. He denies fever, chills, nausea, vomiting, diarrhea. He has some pain around his penis associated with the catheter so we will remove. Review of Systems Review of Systems: All systems reviewed & are unremarkable except as noted in HPI and below Exam Narrative: - GENERAL: Morbidly obese male in no acute distress breathing comfortably on 3 L oxygen by nasal cannula - EYES: EOMI. Anicteric. - HENT: Moist mucous membranes. - LUNGS: Clear to auscultation, no wheezing rhonchi rales - CARDIOVASCULAR: Regular rate and rhythm. - ABDOMEN: Soft, non-tender and non-distended. No palpable masses. Many scabs and bruising on abdomen. - : Significant scrotal edema, appears to be improving. Wadsworth catheter in place. - EXTREMITIES: No edema. Peripheral pulses 2+. Non-tender. - NEUROLOGIC: No focal neurological deficits. CN II-XII grossly intact. - PSYCHIATRIC: Awake, Alert and oriented x 3.
[2021-04-18 16:29] LABS: Glucose Point of Care 135 mg/dl (65-105)
[2021-04-18] MEDS: EUCERIN CREAM 120 GM JAR 1 APPLIC TOPICAL (17:20)
[2021-04-18 22:08] LABS: Glucose Point of Care 152 mg/dl (65-105)
[2021-04-19] VITALS (17 sets, daily range): BP systolic 109–138; BP diastolic 65–83; PULSE 78–112; RESP 18–20; TEMP 36.2–36.8; O2SAT 87–100
[2021-04-19] MEDS: MORPHINE SULFATE (*CRX) 4 MG/ML INJ IV PUSH ×2 (04:29→08:36)
[2021-04-19 06:08] LABS: Hematocrit 41.8 % (42.0-52.0); Hemoglobin 13.1 g/dL (14.0-18.0); Mean Corpuscular HGB Conc 31.3 g/dl (32-36); Mean Corpuscular Hemoglobin 28.9 pg (26-34); Mean Corpuscular Volume 92.1 fl (80-100); Mean Platelet Volume 10.7 fl (7.4-10.4); Platelet Count Result 255 k/mm3 (150-375); Red Blood Count 4.54 M/mm3 (4.6-6.20); Red Cell Distribution Width 15.8 % (11.5-14.5); White Blood Count 17.7 K/mm3 (4.5-10.0)
[2021-04-19 06:36] LABS: Blood Urea Nitrogen 40 mg/dL (9-20); Carbon Dioxide > 40 mmol/L (22-30); Chloride 78 mmol/L (98-107); Estimated CRCL calculation 108 ml/min; Estimated Glomerular Filt Rate 55; Glucose 162 mg/dL (65-110); Potassium 3.5 mmol/L (3.4-5.0); Sodium 129 mmol/L (137-145)
[2021-04-19] MEDS: HEPARIN SODIUM 5,000 UNITS/ML VIAL 5000 UNITS SUB-Q ×3 (06:56→21:12)
[2021-04-19 07:36] LABS: Glucose Point of Care 182 mg/dl (65-105)
[2021-04-19] MEDS: UMECLIDINIUM/VILANTEROL 62.5-25 MCG ELLIPTA 1 PUFF INHALATION (08:12)
[2021-04-19] MEDS: PANTOPRAZOLE 40 MG TABLET PO (08:36)
[2021-04-19] MEDS: ONDANSETRON INJ 4 MG/2 ML VIAL IV PUSH ×2 (08:36→18:00)
[2021-04-19] MEDS: carvediloL 12.5 MG TABLET PO ×2 (08:37→21:12)
[2021-04-19] MEDS: metOLazone 2.5 MG TABLET PO (08:37)
[2021-04-19] MEDS: ASPIRIN 81 MG CHEWABLE TABLET PO (08:37)
[2021-04-19] MEDS: buPROPion HCL XL (24 HR) 150 MG TABCR 300 MG PO (08:37)
[2021-04-19] MEDS: FUROSEMIDE 40 MG TABLET PO ×2 (08:37→16:09)
[2021-04-19] MEDS: GABAPENTIN 100 MG CAPSULE PO ×3 (08:37→16:09)
[2021-04-19] MEDS: EUCERIN CREAM 120 GM JAR 1 APPLIC TOPICAL (08:40)
--- NOTE | 2021-04-19 11:23 | PM.PNPUL ---
Progress Note: A&P Assessment and Plan (1) Chronic respiratory failure with hypoxia and hypercapnia: Code(s): J96.11 - Chronic respiratory failure with hypoxia; J96.12 - Chronic respiratory failure with hypercapnia Status: Acute Assessment and Plan: Patient with obesity hypoventilation syndrome 04/14 Patient with a history of chronic hypercarbic respiratory failure with a blood gas on 10/18/2020 on room air with a pH of 7.36/62/55. Suspect patient has obesity hypoventilation syndrome. I will repeat a blood gas tonight to assess for hypercarbia during the daytime. He also has a history of COPD and history of obstructive sleep apnea. Patient also with a history of 48 pack year tobacco use and may have COPD. Patient is on inhalers at home and intermittently has wheezing. At this time he has no wheezing, no evidence of a COPD exacerbation and no pneumonia. I will continue his Anoro Ellipta 62.5-25 at 1 puff q.day. Will continue nocturnal noninvasive ventilation tonight. Aggressive diuresis per hospitalist team as tolerated by his cardiac and renal systems. 04/15 04/15 Swelling has improved. Patient with a noninvasive ventilation are last night with a AVAPS mode with a set rate of 14, tidal volume 500, EPAP 10, minimal inspiratory pressure 11, maximal inspiratory pressure 30, 35% and had an ABG prior to removal which demonstrated a pH of 7.39/77/76. Patient had an overnight oximetry on 35% with the above mentioned settings and his baseline saturation was 93%, lowest saturation 75%, time with saturation less than or equal to 88% was 40 minutes. Patient is diuresing well and is -17 L since admission. No wheezes on exam. Patient still with hypercarbia while wearing the AVAPS and I will increase his rate to 20, increase his tidal volume to 550, increase his EPAP to 12 and increase his FiO2 to 40% and repeat an overnight oximetry and ABG. 04/16 Patient wore noninvasive ventilation are last night with a AVAPS mode with a set rate of 20, tidal volume 550, EPAP 12, minimal inspiratory pressure 13, maximal inspiratory pressure 30, 40% and had an ABG prior to removal which demonstrated a pH of 7.44/68/79. patient tolerated the settings and said he slept well. Will continue these settings. unfortunately the pulse oximeter sensor was disconnected so the overnight oximetry Provided no data. Patient is diuresing well per hospitalist and cardiology and is -27 L since admission, edema better. No wheezes on exam. I will repeat an overnight oximetry tonight on 40%. 04/19/21 Patient states he is breathing better than he has in the last 8 months. Patient really and on 3 L nasal cannula at rest with saturations 94%. Patient is tolerating his nocturnal noninvasive ventilation with the AVAPS mode well. On AVAPS mode with a set rate of 20, tidal volume 550, EPAP 12, minimal inspiratory pressure 13, maximal inspiratory pressure 30, 40% He had an overnight oximetry on 04/17/2021 demonstrating average saturation 92%, lowest saturation 58%. Time with saturation less than or equal to 88% was 4 minutes. Creatinine increased to 1.4 and the hospitalist is adjusting the diuretics. Edema is improved. Patient is -30 6.9 L since admission. Patient is ready to be discharged today from a pulmonary perspective on these pulmonary medications. Anoro Ellipta 62.5 at 1 puff q.day. Rescue albuterol 2 puffs q.4 hours p.r.n. shortness of breath or wheezing. When he naps or sleeps noninvasive ventilation with AVAPS mode with a set rate of 20, tidal volume 550, EPAP minimum 5, EPAP maximum 15, minimal inspiratory pressure 13, maximal inspiratory pressure 30, 5 L bleed in. this set up has been initiated with his [employer] company called via [employer] and we are awaiting their set up for home use. Oxygen at rest and with ambulation per home O2 assessment which I have ordered today. Follow-up in the Pulmonary Clinic in 3-4 weeks. Subjective Date/
--- NOTE | 2021-04-19 11:47 | PM.PNCARD ---
Progress Note: A&P Assessment and Plan (1) Acute right heart failure: Code(s): I50.811 - Acute right heart failure Status: Acute Assessment and Plan: Mostly right sided HF sxs. Impressive diuretic response greater than 36 L negative this hospitalization. while patient still mildly volume overloaded markedly improved and stable for discharge from cardiac perspective. -Due to worsening renal insufficiency reduce metolazone to 2.5 mg once daily. -Change furosemide to 40 mg p.o. twice daily. -BMP in 1 week as an outpatient. -Patient will follow up with his supervisor orchard Dr. Edge as scheduled April 29. CHF counseling performed. Follow daily weight. CPAP and O2 supplementation critical. (2) Acute heart failure with preserved ejection fraction: Code(s): I50.31 - Acute diastolic (congestive) heart failure Status: Acute Assessment and Plan: As above, symptoms mostly right-sided, preserved LV systolic function. (3) Elevated troponin: Code(s): R77.8 - Other specified abnormalities of plasma proteins Status: Acute Assessment and Plan: Not related to acute coronary syndrome. Type 2 infarction. ASA 81 mg daily. (4) Acute kidney injury (JANNETTE) with acute tubular necrosis (ATN): Code(s): N17.0 - Acute kidney failure with tubular necrosis Status: Acute Assessment and Plan: BUN and creatinine increase from yesterday and since admission Very likely secondary to diuresis. Reduce diuresis check BMP as an outpatient. Ideally, would ensure stability tomorrow, however, if he is to be discharged he should obtain a BMP as advised. (5) Hypertension: Qualifiers: Hypertension type: primary hypertension Qualified Code(s): I10 - Essential (primary) hypertension Code(s): I10 - Essential (primary) hypertension Status: Chronic Assessment and Plan: Tolerating carvedilol 12.5 mg twice daily and losartan 25 mg daily. Continue. (6) COPD (chronic obstructive pulmonary disease): Qualifiers: COPD type: unspecified COPD Qualified Code(s): J44.9 - Chronic obstructive pulmonary disease, unspecified Code(s): J44.9 - Chronic obstructive pulmonary disease, unspecified Status: Chronic Assessment and Plan: Per pulmonology Smoking cessation. (7) Chronic respiratory failure with hypoxia and hypercapnia: Code(s): J96.11 - Chronic respiratory failure with hypoxia; J96.12 - Chronic respiratory failure with hypercapnia Status: Acute Assessment and Plan: Obesity hypoventilation syndrome, COPD, MORGAN. Management per pulmonology and primary service. (8) Tobacco abuse: Code(s): Z72.0 - Tobacco use Status: Chronic Assessment and Plan: Recently stopped. He must not resume. (9) Morbid obesity: Code(s): E66.01 - Morbid (severe) obesity due to excess calories Status: Acute Assessment and Plan: Weight loss, lifestyle modification counseling. Subjective Date/time seen: Date of service:04/19/21 11:47 Interval history: Follow-up visit in this 45-year-old man with: Severe case of cor pulmonale due to combination of morbid obesity with sleep apnea, chronic COPD and secondary pulmonary hypertension as result of this. Patient is resting comfortably this morning on BiPAP, no cardiovascular complaints. Patient being aggressively diuresed thus far no road blocks to continuing this in terms of vital signs and azotemia 04/19/2020 patient feeling much better. Still notes some exertional dyspnea but much improved and was able to get around the nurse's station a couple times which he could not do admission. Denies chest pain, dizziness. Edema much better. Abdomen much softer. Feels like he really wants to go home. Awaiting AVAPS to be set up at home and home O2. remains on O2 3 L nasal cannula. Review of Systems Review of Systems: All systems reviewed & are unrem
--- NOTE | 2021-04-19 12:10 | HOMEO2EVAL ---
Evaluation was performed at [facility] Home Oxygen Evaluation RC: Home Oxygen (O2) Evaluation Start: 04/19/21 11:22 Freq: ONCE Status: Active Protocol: RPE Activity Type Activity Date Activity User E-Sign Co-Sign Detail Recorded Client Recorded Date Recorded By Document 04/19/21 11:59 KRM [email or web address] 04/19/21 12:10 KRM Document 04/19/21 12:05 KRM [email or web address] 04/19/21 12:10 KRM Document 04/19/21 12:07 KRM [email or web address] 04/19/21 12:10 KRM Document 04/19/21 12:09 KRM [email or web address] 04/19/21 12:10 KRM 04/19/21 04/19/21 04/19/21 11:59 12:05 12:07 Home O2 Evaluation Test Phase Resting Exercise Exercise Oxygen Delivery Room Air Room Air Nasal Cannula Oxygen Flow Rate (L/min) 1 Pulse Oximetry (90-100 %) 93 87 L 89 L Pulse Rate (60-100 beats/min) 100 103 H 102 H Activity Tolerance Good Ambulation Distance (feet) Ambulation Distance (meters) Home Oxygen Evaluation Comments Treatment Charges O2 Evaluation - Inpatient 04/19/21 12:09 Home O2 Evaluation Test Phase Exercise Oxygen Delivery Nasal Cannula Oxygen Flow Rate (L/min) 2 Pulse Oximetry (90-100 %) 90 Pulse Rate (60-100 beats/min) 103 H Activity Tolerance Good Ambulation Distance (feet) 200 Ambulation Distance (meters) 60.95 Home Oxygen Evaluation Comments 2lpm with activity. Treatment Charges
--- NOTE | 2021-04-19 12:24 | PCRCNOTE ---
PT. TRILOGY AND HOME OXYGEN (2LPM WITH ACTIVITY) SET UP WITH [employer]. [employer] HAS ALL INFO AND IS WORKING ON AUTHORIZATION.
[2021-04-19 12:31] LABS: Glucose Point of Care 149 mg/dl (65-105)
[2021-04-19] MEDS: traMADol HCL (*CRX) 50 MG TABLET PO ×2 (15:01→21:10)
[2021-04-19 16:32] LABS: Glucose Point of Care 154 mg/dl (65-105)
--- NOTE | 2021-04-19 17:00 | PM.IMPN ---
Progress Note: A&P Assessment and Plan (1) Acute kidney injury (JANNETTE) with acute tubular necrosis (ATN): Code(s): N17.0 - Acute kidney failure with tubular necrosis Status: Acute (2) Acute heart failure with preserved ejection fraction: Code(s): I50.31 - Acute diastolic (congestive) heart failure Status: Acute (3) Acute right heart failure: Code(s): I50.811 - Acute right heart failure Status: Acute (4) Obesity hypoventilation syndrome: Code(s): E66.2 - Morbid (severe) obesity with alveolar hypoventilation Status: Acute (5) Chronic respiratory failure with hypoxia and hypercapnia: Code(s): J96.11 - Chronic respiratory failure with hypoxia; J96.12 - Chronic respiratory failure with hypercapnia Status: Acute (6) Morbid obesity: Code(s): E66.01 - Morbid (severe) obesity due to excess calories Status: Acute (7) Scrotal swelling: Code(s): N50.89 - Other specified disorders of the male genital organs Status: Acute (8) Anasarca: Code(s): R60.1 - Generalized edema Status: Acute Additional Plan # anasarca # scrotal edema # chronic respiratory failure with hypoxia hypercapnia # grade 1 diastolic heart failure, heart failure with preserved ejection fraction - patient has had had several days of IV diuresis Lasix 40 mg t.i.d., now coming down to his likely discharge rate of p.o. Lasix 40 mg b.i.d. because of prerenal azotemia likely secondary to diuresis - urology management of the scrotal edema is elevation of scrotum and diuresis -patient appears to be chronically on oxygen, needs 3 L oxygen therapy, will make sure he has 3 L home oxygen therapy, home O2 eval ordered by vegetable farm manager -he is encouraged to move, discussed with nurse to try to get a bariatric chair for patient to sit up -echocardiogram 04/13/2021: LVEF 50-55%, diastolic dysfunction severe enlargement LB - metolazone 2.5 daily - Patient has cardiology follow-up with Dr. Edge 04/29/2021 and CHF counseling, he will need BMP in a week # ATN versus prerenal azotemia -Likely secondary to aggressive diuresis, will cut back to Lasix 40 mg p.o. b.i.d. # hyponatremia -likely secondary to diuresis, will trend # obesity hypoventilation syndrome # morbid obesity -discussed with vegetable farm manager, plan for nocturnal pulse ox tonight. Patient will likely need home oxygen therapy and we are trying to get trilogy machine for the obesity hypoventilation syndrome -settings as per vegetable farm manager noninvasive ventilator AVAPS mode rate 20, EPAP 12, tidal volume 550, 40% -patient needs weight loss plan -umeclidinium -out of bed, encourage ambulation - we are working on setting up noninvasive ventilation home, awaiting DME # nicotine abuse -will give nicotine patch if needed -Continue home bupropion # type 2 diabetes -holding home metformin -sliding scale insulin, Accu-Cheks a.c. HS, hypoglycemia protocol # decubitus ulcer -around his penis and scrotum with significant edema and swelling, in between skin folds -placing some Eucerin lotion over the wounds Diet: Cardiac DVT prophylaxis: Heparin Code status: Full code Disposition: Plan to discharge home with home health once we have appropriate DME set up trilogy machine, hopefully tomorrow Subjective Date/time seen: 04/19/21 17:00 patient seen and examined. Patient has persistent leukocytosis however no fevers and no other signs of infection. He started to developed prerenal azotemia with elevated creatinine up to 1.4, likely secondary to his diuresis. I have cut down his diuretics back to his home 40 mg p.o. Lasix b.i.d. his hyponatremia and hypochloremia is probably likely secondary to his diuresis as well. We are still trying to set up his trilogy machine at home with vegetable farm manager help. Anticipate discharge with home health Hopefully tomorrow once DME is arranged for noninvasive ventilation. Review of Systems Review of Systems: Marky
[2021-04-19 21:10] LABS: Glucose Point of Care 201 mg/dl (65-105)
[2021-04-20] MEDS: MORPHINE SULFATE (*CRX) 4 MG/ML INJ IV PUSH (01:07)
[2021-04-20 02:00] VITALS: BP 112/66; PULSE 82; RESP 21; TEMP 36; O2SAT 100
[2021-04-20 02:50] VITALS: RESP 23
[2021-04-20] MEDS: HEPARIN SODIUM 5,000 UNITS/ML VIAL 5000 UNITS SUB-Q (05:17)
[2021-04-20 05:25] LABS: Hematocrit 40.7 % (42.0-52.0); Hemoglobin 12.6 g/dL (14.0-18.0); Mean Corpuscular Hemoglobin 28.7 pg (26-34); Mean Corpuscular Volume 92.7 fl (80-100); Mean Platelet Volume 11.1 fl (7.4-10.4); Platelet Count Result 266 k/mm3 (150-375); Red Blood Count 4.39 M/mm3 (4.6-6.20); Red Cell Distribution Width 15.9 % (11.5-14.5); White Blood Count 14.7 K/mm3 (4.5-10.0)
[2021-04-20 06:00] VITALS: BP 115/64; PULSE 82; RESP 20; TEMP 35.9; O2SAT 98
--- NOTE | 2021-04-20 06:53 | WPDUROPN2 ---
Progress Note: A&P Assessment and Plan (1) Morbid obesity: Code(s): E66.01 - Morbid (severe) obesity due to excess calories Status: Acute (2) Scrotal swelling: Code(s): N50.89 - Other specified disorders of the male genital organs Status: Acute Assessment and Plan: Scrotal swelling continues to slowly improve with elevation and diuresis. Subjective Subjective Date/Time Seen: 04/20/21 06:53 Reports moderate improvement in scrotal discomfort/swelling Review of Systems Cardiovascular: Cardiovascular: Denies chest pain, Denies lightheadedness, Denies palpitations and Denies dyspnea Respiratory: Respiratory: Denies dyspnea Gastrointestinal: Gastrointestinal: Denies diarrhea, Denies nausea and Denies vomiting Genitourinary: Genitourinary: Denies hematuria and Denies dysuria Endocrine: Endocrine: Denies palpitations Exam Const: General: cooperative, no acute distress, alert, awake and Physically active; No acute distress Orientation/consciousness: oriented to person, oriented to place and oriented to time Resp: Effort & Inspection: normal respiratory effort, able to speak in complete sentences, normal respiratory pattern and no audible wheezes Cardio: Rate: regular rate, not bradycardic and not tachycardic GI: Inspection: non-distended and Pannus present Auscultation: normal bowel sounds : Male General Exam: Yes edema (slight improvement in scrotal edeam / skin with erythema or necrosis) and No erythema Scrotum: edematous (significant bilateral scrotal edema, no crepitus or fluctuance on exam.) and other (Tenderness significantly improved/erythema resolved compared to last week) Urinary Catheter: Urinary Catheter: patent and draining and urine clear Neuro: General: oriented to person, oriented to place and oriented to time Objective Data Vital Signs Vital Signs: Vital Signs - 24 hr 04/19/21 08:00 04/19/21 08:37 04/19/21 10:08 Temperature 97.2 F L Pulse Rate 94 78 93 Respiratory Rate 20 Blood Pressure 131/83 Pulse Oximetry 97 04/19/21 11:59 04/19/21 12:00 04/19/21 12:05 Temperature Pulse Rate 100 102 H 103 H Respiratory Rate Blood Pressure Pulse Oximetry 93 87 L 04/19/21 12:07 04/19/21 12:09 04/19/21 14:24 Temperature 97.3 F L Pulse Rate 102 H 103 H 85 Respiratory Rate 18 Blood Pressure 129/73 Pulse Oximetry 89 L 90 100 04/19/21 17:58 04/19/21 21:12 04/19/21 21:14 Temperature 97.9 F Pulse Rate 98 100 Respiratory Rate 18 18 Blood Pressure 138/70 Pulse Oximetry 93 97 04/19/21 22:00 04/20/21 02:00 04/20/21 02:50 Temperature 97.2 F L 96.8 F L Pulse Rate 98 82 Respiratory Rate 18 21 H 23 H Blood Pressure 137/81 112/66 Pulse Oximetry 97 100 04/20/21 06:00 Temperature 96.6 F L Pulse Rate 82 Respiratory Rate 20 Blood Pressure 115/64 Pulse Oximetry 98 Intake/Output Intake/Output: Intake & Output 04/17/21 04/18/21 04/19/21 04/20/21 23:59 23:59 23:59 23:59 Intake Total 2020 3400 2480 980 Output Total 5688 4500 2850 1500 Balance -4510 -1100 -370 -520 Meds/Results Medications: Active Medications Generic Name Dose Route Start Last Admin Trade Name Freq PRN Reason Stop Dose Admin Acetaminophen 650 mg 04/13/21 13:27 04/16/21 11:59 Acetaminophen 325 Mg Tablet PO 650 mg Q4H PRN Administration Mild Pain (1-3) or Fever Albuterol 2.5 mg 04/14/21 07:22 04/15/21 17:22 Albuterol Sulfate Neb 2.5 Mg/3 Ml Inh INHALATION 2.5 mg Q4H PRN Administration Shortness Of Breath Aspirin 81 mg 04/14/21 08:00 04/19/21 08:37 Aspirin 81 Mg Chewable Tablet PO 81 mg DAILY@0800 JEANNINE Administration Bupropion HCl 300 mg 04/14/21 09:00 04/19/21 08:37 Bupropion Hcl Xl (24 Hr) 150 Mg Tabcr PO 300 mg QAM JEANNINE Administration Carvedilol 12.5 mg 04/14/21 21:00 04/19/21 21:12 Carvedilol 12.5 Mg Tablet PO 12.5 mg Q12HR JEANNINE Administration Dextrose 12.5 gm
[2021-04-20 07:47] LABS: Glucose Point of Care 153 mg/dl (65-105)
[2021-04-20 08:36] LABS: Blood Urea Nitrogen 38 mg/dL (9-20); Calcium 9.2 mg/dL (8.4-10.2); Carbon Dioxide > 40 mmol/L (22-30); Chloride 79 mmol/L (98-107); Estimated CRCL calculation 107 ml/min; Estimated Glomerular Filt Rate 55; Glucose 170 mg/dL (65-110); Potassium 2.9 mmol/L (3.4-5.0); Sodium 130 mmol/L (137-145)
[2021-04-20] MEDS: metOLazone 2.5 MG TABLET PO (08:38)
[2021-04-20] MEDS: buPROPion HCL XL (24 HR) 150 MG TABCR 300 MG PO (08:38)
[2021-04-20] MEDS: traMADol HCL (*CRX) 50 MG TABLET PO (08:38)
[2021-04-20] MEDS: ONDANSETRON INJ 4 MG/2 ML VIAL IV PUSH ×2 (08:38→13:54)
[2021-04-20] MEDS: carvediloL 12.5 MG TABLET PO (08:38)
[2021-04-20] MEDS: ASPIRIN 81 MG CHEWABLE TABLET PO (08:38)
[2021-04-20] MEDS: PANTOPRAZOLE 40 MG TABLET PO (08:39)
[2021-04-20] MEDS: FUROSEMIDE 40 MG TABLET PO ×2 (08:39→16:27)
[2021-04-20] MEDS: EUCERIN CREAM 120 GM JAR 1 APPLIC TOPICAL (08:39)
[2021-04-20] MEDS: GABAPENTIN 100 MG CAPSULE PO ×3 (08:39→16:27)
--- NOTE | 2021-04-20 09:32 | PM.PNPUL ---
Progress Note: A&P Assessment and Plan (1) Chronic respiratory failure with hypoxia and hypercapnia: Code(s): J96.11 - Chronic respiratory failure with hypoxia; J96.12 - Chronic respiratory failure with hypercapnia Status: Acute Assessment and Plan: Patient with obesity hypoventilation syndrome 04/14 Patient with a history of chronic hypercarbic respiratory failure with a blood gas on 10/18/2020 on room air with a pH of 7.36/62/55. Suspect patient has obesity hypoventilation syndrome. I will repeat a blood gas tonight to assess for hypercarbia during the daytime. He also has a history of COPD and history of obstructive sleep apnea. Patient also with a history of 48 pack year tobacco use and may have COPD. Patient is on inhalers at home and intermittently has wheezing. At this time he has no wheezing, no evidence of a COPD exacerbation and no pneumonia. I will continue his Anoro Ellipta 62.5-25 at 1 puff q.day. Will continue nocturnal noninvasive ventilation tonight. Aggressive diuresis per hospitalist team as tolerated by his cardiac and renal systems. 04/15 04/15 Swelling has improved. Patient with a noninvasive ventilation are last night with a AVAPS mode with a set rate of 14, tidal volume 500, EPAP 10, minimal inspiratory pressure 11, maximal inspiratory pressure 30, 35% and had an ABG prior to removal which demonstrated a pH of 7.39/77/76. Patient had an overnight oximetry on 35% with the above mentioned settings and his baseline saturation was 93%, lowest saturation 75%, time with saturation less than or equal to 88% was 40 minutes. Patient is diuresing well and is -17 L since admission. No wheezes on exam. Patient still with hypercarbia while wearing the AVAPS and I will increase his rate to 20, increase his tidal volume to 550, increase his EPAP to 12 and increase his FiO2 to 40% and repeat an overnight oximetry and ABG. 04/16 Patient wore noninvasive ventilation are last night with a AVAPS mode with a set rate of 20, tidal volume 550, EPAP 12, minimal inspiratory pressure 13, maximal inspiratory pressure 30, 40% and had an ABG prior to removal which demonstrated a pH of 7.44/68/79. patient tolerated the settings and said he slept well. Will continue these settings. unfortunately the pulse oximeter sensor was disconnected so the overnight oximetry Provided no data. Patient is diuresing well per hospitalist and cardiology and is -27 L since admission, edema better. No wheezes on exam. I will repeat an overnight oximetry tonight on 40%. 04/19/21 Patient states he is breathing better than he has in the last 8 months. Patient really and on 3 L nasal cannula at rest with saturations 94%. Patient is tolerating his nocturnal noninvasive ventilation with the AVAPS mode well. On AVAPS mode with a set rate of 20, tidal volume 550, EPAP 12, minimal inspiratory pressure 13, maximal inspiratory pressure 30, 40% He had an overnight oximetry on 04/17/2021 demonstrating average saturation 92%, lowest saturation 58%. Time with saturation less than or equal to 88% was 4 minutes. Creatinine increased to 1.4 and the hospitalist is adjusting the diuretics. Edema is improved. Patient is -30 6.9 L since admission. 04/20 patient feels well this morning. He has been ambulating in the halls. Patient wore the hospital noninvasive ventilator with the AVAPS mode last night and did well. Edema has improved, continues to diurese with -370 yesterday and cumulative -30 7.7 L. via [employer] is continuing to work on setting up his home noninvasive ventilator. Patient is ready for discharge today. Patient is ready to be discharged today from a pulmonary perspective on these pulmonary medications. Anoro Ellipta 62.5 at 1 puff q.day. Rescue albuterol 2 puffs q.4 hours p.r.n. shortness of breath or wheezing. When he naps or sleeps noninvasive ventilation with AVAPS mode with a set rate of 20, tidal volume 550, E
[2021-04-20 11:05] VITALS: BP 138/90; PULSE 96; RESP 18; TEMP 36.7; O2SAT 93
[2021-04-20 11:31] LABS: Glucose Point of Care 158 mg/dl (65-105)
--- NOTE | 2021-04-20 14:03 | PM.PNCARD ---
Progress Note: A&P Assessment and Plan (1) Acute right heart failure: Code(s): I50.811 - Acute right heart failure Status: Acute Assessment and Plan: Mostly right sided HF sxs. Impressive diuretic response greater than 37 L negative this hospitalization. while patient still mildly volume overloaded markedly improved and stable for discharge from cardiac perspective. -continue furosemide 40 mg twice daily and metolazone to 2.5 mg once daily. He needs to weigh himself daily and document this. Counseled on the significant importance of my close observation. He verbalized understanding and states he will obtain a scale. -BMP in 1 week as an outpatient. -Patient will follow up with his photo editor Dr. Edge as scheduled April 29. CHF counseling performed. Follow daily weight. CPAP and O2 supplementation critical. (2) Acute heart failure with preserved ejection fraction: Code(s): I50.31 - Acute diastolic (congestive) heart failure Status: Acute Assessment and Plan: As above, symptoms mostly right-sided, preserved LV systolic function. (3) Elevated troponin: Code(s): R77.8 - Other specified abnormalities of plasma proteins Status: Acute Assessment and Plan: Not related to acute coronary syndrome. Type 2 infarction. ASA 81 mg daily. (4) Acute kidney injury (JANNETTE) with acute tubular necrosis (ATN): Code(s): N17.0 - Acute kidney failure with tubular necrosis Status: Acute Assessment and Plan: BUN and creatinine increase from yesterday and since admission Very likely secondary to diuresis. Reduce diuresis check BMP as an outpatient. Ideally, would ensure stability tomorrow, however, if he is to be discharged he should obtain a BMP as advised. Creatinine stable. Tolerating current regimen. (5) Hypertension: Qualifiers: Hypertension type: primary hypertension Qualified Code(s): I10 - Essential (primary) hypertension Code(s): I10 - Essential (primary) hypertension Status: Chronic Assessment and Plan: Tolerating carvedilol 12.5 mg twice daily and losartan 25 mg daily. Continue. (6) COPD (chronic obstructive pulmonary disease): Qualifiers: COPD type: unspecified COPD Qualified Code(s): J44.9 - Chronic obstructive pulmonary disease, unspecified Code(s): J44.9 - Chronic obstructive pulmonary disease, unspecified Status: Chronic Assessment and Plan: Per pulmonology Smoking cessation. (7) Chronic respiratory failure with hypoxia and hypercapnia: Code(s): J96.11 - Chronic respiratory failure with hypoxia; J96.12 - Chronic respiratory failure with hypercapnia Status: Acute Assessment and Plan: Obesity hypoventilation syndrome, COPD, MORGAN. Management per pulmonology and primary service. (8) Tobacco abuse: Code(s): Z72.0 - Tobacco use Status: Chronic Assessment and Plan: Recently stopped. He must not resume. (9) Morbid obesity: Code(s): E66.01 - Morbid (severe) obesity due to excess calories Status: Acute Assessment and Plan: Weight loss, lifestyle modification counseling. Subjective Date/time seen: Date of service: 04/20/21 14:03 Interval history: Follow-up visit in this 45-year-old man with: Severe case of cor pulmonale due to combination of morbid obesity with sleep apnea, chronic COPD and secondary pulmonary hypertension as result of this. Patient is resting comfortably this morning on BiPAP, no cardiovascular complaints. Patient being aggressively diuresed thus far no road blocks to continuing this in terms of vital signs and azotemia 04/20/20 no new issues overnight. Breathing stable. Edema largely unchanged. Notes some exertional dyspnea but steadily improving. Plan to be discharged later today he states when home oxygen set up. No chest pain, dizziness or palpitations. Review of Systems Review of Sys
--- NOTE | 2021-04-20 14:53 | PM.DS ---
DS: Admitting Diagnosis Discharge Date 04/20/2021 Admitting Diagnosis Scrotal edema, fluid overload, acute hypoxic respiratory failure. DS: Discharge Diagnosis Discharge Diagnosis (1) Acute kidney injury (JANNETTE) with acute tubular necrosis (ATN): Code(s): N17.0 - Acute kidney failure with tubular necrosis Status: Acute (2) Acute heart failure with preserved ejection fraction: Code(s): I50.31 - Acute diastolic (congestive) heart failure Status: Acute (3) Acute right heart failure: Code(s): I50.811 - Acute right heart failure Status: Acute (4) Obesity hypoventilation syndrome: Code(s): E66.2 - Morbid (severe) obesity with alveolar hypoventilation Status: Acute (5) Chronic respiratory failure with hypoxia and hypercapnia: Code(s): J96.11 - Chronic respiratory failure with hypoxia; J96.12 - Chronic respiratory failure with hypercapnia Status: Acute (6) Morbid obesity: Code(s): E66.01 - Morbid (severe) obesity due to excess calories Status: Acute (7) Scrotal swelling: Code(s): N50.89 - Other specified disorders of the male genital organs Status: Acute (8) Anasarca: Code(s): R60.1 - Generalized edema Status: Acute DS: Summary Hospital Course Reason for hospitalization: Acute hypoxic respiratory failure secondary to fluid overload Hospital Course: Patient is a 45-year-old male with past medical history of morbid obesity, COPD, diastolic heart failure grade 1, GERD, type 2 diabetes who presents to ED with complaints of scrotal swelling. Patient had ultrasound of his scrotum outpatient and was placed on oral antibiotics for scrotal edema. He then returned to hospital on 04/12/2021 with worsening scrotal edema. Urologist was consulted who believes scrotal edema secondary to fluid overload state and recommendations for diuresis no other urological procedures required. Cardiology was consulted for heart failure and recommended metolazone and aggressive IV diuresis. He was given IV Lasix 40 mg IV t.i.d. until his kidney started to show prerenal azotemia. Will recheck BMP in 1 week after discharge. It appears patient has had over 30 L of fluid output throughout his 8 day hospitalization. He feels much rather able to ambulate farther distances without dyspnea, able to bite his legs together. He has been weaned off of oxygen to 2 L with activity. He will be sent home with Lasix 40 mg b.i.d. and metolazone 2.5 mg daily. He was also seen by loader unloader Dr. Staley who agreed with the diuresis and also bleeds patient has obesity hypoventilation syndrome. Patient has been set up for noninvasive ventilation with AVAPS mode rate 20, tidal volume 550, EPAP 5 minimum and 15 maximum, minimum inspiratory pressure 13, maximum inspiratory pressure 30. 5 L oxygen bleed in. Patient to be discharged home on 2 L oxygen with activity and noninvasive ventilator will be sent to his house. Kitman recommending p.r.n. albuterol and Anoro Ellipta inhaler. Patient to follow-up with pulmonology in 3-4 weeks. For his heart failure he will follow-up with Dr. timmons on 04/29/2021. He has been counseled on congestive heart failure and recommended to check his weight daily. He will have a BMP in 1 week. He has been counseled that his CPAP and O2 management will be critical in his right-sided heart failure. Patient prescribed nystatin powder for his groin rash. At time of discharge patient's vitals are stable, labs stable, patient is stable for discharge home. Patient understands and agrees with plan. Status at Discharge Cognitive/behavioral status at discharge: At baseline Functional status at discharge: uses cane/walker Overall status at discharge: patient is back to baseline Time Spent with Patient Time attestation: Total time spent providing and/or coordinating discharge services:35 Time spent: Greater than 30 minutes Exam Narrative: - GENERAL: Morbidly obese mal
[2021-04-20 14:59] VITALS: BP 133/84; PULSE 86; RESP 18; TEMP 36.1; O2SAT 94
--- NOTE | 2021-04-20 15:36 | PCRCNOTE ---
Window of time for administration has passed. See next scheduled administration.
[2021-04-20 17:09] LABS: Glucose Point of Care 148 mg/dl (65-105)
== END 2021-04-20 17:05 | disposition home health service (06) | DRG 194 ==
LOC: ANHED 23:21 → ANH3MEDSUR 04-13 10:22 → ANHIMU 04-13 14:58 → ANH2MED 04-14 20:06 → ANHIMU 07-06 12:53
PROVIDERS: Internal Medicine Pulmonary Disease; Nurse Practitioner Adult Health; Urology; Admitting Provider Internal Medicine; Emergency Provider Nurse Practitioner; PCP Physician Assistant; Visit Provider Student in an Organized Health Care Education/Training Program
DX: I11.0 Hypertensive heart disease with heart failure (principal); I50.33 Acute on chronic diastolic (congestive) heart failure; N17.0 Acute kidney failure with tubular necrosis; E66.2 Morbid (severe) obesity with alveolar hypoventilation; Z68.43 Body mass index [BMI] 50.0-59.9, adult; Z20.822 Contact with and (suspected) exposure to COVID-19; J96.21 Acute and chronic respiratory failure with hypoxia; J96.22 Acute and chronic respiratory failure with hypercapnia; J44.9 Chronic obstructive pulmonary disease, unspecified; K21.9 Gastro-esophageal reflux disease without esophagitis; E11.9 Type 2 diabetes mellitus without complications; I21.A1 Myocardial infarction type 2; L89.899 Pressure ulcer of other site, unspecified stage; Z87.891 Personal history of nicotine dependence
CPT/HCPCS: 36415; 36600; 71045; 71275; 80048; 80053; 82805; 82948; 83735; 83880; 84439; 84443; 84484; 85025; 85027; 85610; 85730; 87426; 93005; 93306; 94002; 94003; 94618; 94640; 94660; 94762; 96372; 96374; 96375; 97162; 99285; A9270; C9803; G0378; G0379; J1644; J1815; J1940; J2270; J2405; Q9967

== ENCOUNTER 2021-04-28 12:03 | Outpatient (NON) | payer BC, SELFPAY ==
[2021-04-28 12:17] LABS: Anion Gap 7 mmol/L (8-16); Blood Urea Nitrogen 13 mg/dL (9-20); Calcium 8.8 mg/dL (8.4-10.2); Carbon Dioxide 34 mmol/L (22-30); Chloride 94 mmol/L (98-107); Estimated Glomerular Filt Rate > 60; Glucose 143 mg/dL (65-110); Potassium 3.8 mmol/L (3.4-5.0); Sodium 135 mmol/L (137-145)
== END 2021-04-28 12:04 | disposition home or self-care (01) ==
PROVIDERS: PCP Physician Assistant; Visit Provider Student in an Organized Health Care Education/Training Program
DX: I50.31 Acute diastolic (congestive) heart failure (principal)
CPT/HCPCS: 80048

== ENCOUNTER 2021-05-11 14:50 | Outpatient (NON) | payer BC, SELFPAY ==
[2021-05-11 15:13] LABS: Potassium 2.9 mmol/L (3.4-5.0)
[2021-05-11 17:09] LABS: Valproic Acid 12.2 ug/mL (50-120)
== END 2021-05-11 14:51 | disposition home or self-care (01) ==
LOC: HOME HLTH 14:53
PROVIDERS: PCP Physician Assistant; Visit Provider Physician Assistant
DX: J96.22 Acute and chronic respiratory failure with hypercapnia (principal); J96.21 Acute and chronic respiratory failure with hypoxia; I11.0 Hypertensive heart disease with heart failure; I50.31 Acute diastolic (congestive) heart failure
CPT/HCPCS: 80164; 84132

== ENCOUNTER 2021-05-17 14:07 | Outpatient (NON) | payer BC, SELFPAY ==
[2021-05-17 14:39] LABS: Potassium 3.3 mmol/L (3.4-5.0)
== END 2021-05-17 14:08 | disposition home or self-care (01) ==
PROVIDERS: PCP Physician Assistant; Visit Provider Physician Assistant
DX: J96.22 Acute and chronic respiratory failure with hypercapnia (principal); J96.21 Acute and chronic respiratory failure with hypoxia; I11.0 Hypertensive heart disease with heart failure; I50.31 Acute diastolic (congestive) heart failure
CPT/HCPCS: 84132

== ENCOUNTER 2021-05-24 15:47 | Outpatient (NON) | payer BC, SELFPAY | END 2021-05-24 15:48 | disposition home or self-care (01) | LOC: HOME HLTH 15:51 | PROVIDERS: PCP Physician Assistant; Visit Provider Physician Assistant | DX: J96.22 Acute and chronic respiratory failure with hypercapnia (principal); J96.21 Acute and chronic respiratory failure with hypoxia; I11.0 Hypertensive heart disease with heart failure; I50.31 Acute diastolic (congestive) heart failure | CPT/HCPCS: 84132 ==

== ENCOUNTER 2021-05-31 15:04 | Outpatient (NON) | payer BC, SELFPAY ==
[2021-05-31 15:25] LABS: Potassium 2.9 mmol/L (3.4-5.0)
== END 2021-05-31 15:05 | disposition home or self-care (01) ==
LOC: ANHLAB 15:07
PROVIDERS: PCP Physician Assistant; Visit Provider Physician Assistant
DX: E87.5 Hyperkalemia (principal); J96.22 Acute and chronic respiratory failure with hypercapnia; J96.21 Acute and chronic respiratory failure with hypoxia; I11.0 Hypertensive heart disease with heart failure; I50.31 Acute diastolic (congestive) heart failure
CPT/HCPCS: 36415; 84132

== ENCOUNTER 2021-07-05 16:38 | Emergency (ER) | payer BC, SELFPAY ==
--- NOTE | ~2021-07-05 | CT_ITS ---
EXAMINATION: CT abdomen pelvis w con EXAM DATE: 07/05/2021 20:41 INDICATION: Lower abdominal pain, left inguinal pain. TECHNIQUE: Spiral CT of the abdomen and pelvis was performed following intravenous injection of 100 m L Omnipaque 350. Axial, coronal and sagittal images of the abdomen and pelvis were reviewed. The do se-length product (DLP) for this examination was 1621.29 mGy-cm. The exposure was tailored according to patient size (auto mA exposure control), and iterative reconstruction (ASIR) was used as addition al dose reduction technique. Comparison is made to prior examination from 04/09/2021. FINDINGS: There is hepatic steatosis without suspicious focal lesion identified. Spleen, adrenal glan ds, pancreas are unremarkable. There is cholelithiasis within an otherwise unremarkable gallbladder. No evidence of obstructive biliary disease. Portal and splenic veins are patent. Kidneys enhance symmetrically. There is no hydronephrosis. The prostate is unremarkable. The bladder is unremarka ble. There is no retroperitoneal or pelvic lymphadenopathy. There are small bilateral inguinal fat -containing hernias. Small umbilical fat-containing hernia. The appendix is normal. The stomach and small bowel are unremarkable. There is expected amount of c olonic stool. No free intraperitoneal gas. The heart is normal in size. There are no pericardial or pleural effusions. Several punctate left basilar granulomas. There are no osteoblastic or osteo lytic lesions identified. IMPRESSION: 1. Small inguinal and umbilical fat-containing hernias. 2. No acute intra-abdominal findings. 3. Hepatic steatosis. 4. Cholelithiasis. Reviewed, dictated and finalized at location G.
[2021-07-05 16:47] VITALS: BP 144/60; PULSE 95; RESP 18; TEMP 36.8; O2SAT 99
[2021-07-05 18:58] VITALS: BP 150/97; PULSE 86; RESP 20; O2SAT 95
--- NOTE | 2021-07-05 19:33 | ED.MALEGU ---
HPI - Male Genitourinary General Chief complaint: Urogenital-Male Stated complaint: swelling to scrotum again , L sided testicle pain Time Seen by Provider: 07/05/21 19:06 Source: patient Mode of arrival: ambulatory Limitations: no limitations History of Present Illness HPI Narrative: Patient is a 46-year-old male complaining of left inguinal and left scrotal pain and swelling that started 1 week ago but aggravated it after lifting someone heavy yesterday. Patient states that he tried to help someone that fell and after lifting the person up, as when he felt the pain. Patient states that he has been evaluated for scrotal pain last week by his doctor, had an ultrasound done and was told it was normal. Patient states that he has a history of scrotal swelling and was told that it is due to his congestive heart failure. Patient denies any abdominal pain, nausea, vomiting, urinary symptoms, fever or chills. Related Data Home Medications Medication Instructions Recorded Confirmed carvedilol 6.25 mg PO Q12H 10/18/20 06/16/21 Anoro Ellipta 1 inh INHALATION DAILY 04/13/21 06/16/21 albuterol sulfate 2.5 mg INHALATION Q4H PRN 04/13/21 06/16/21 aspirin 81 mg PO DAILY 04/13/21 06/16/21 bupropion HCl 300 mg PO QAM 04/13/21 06/16/21 gabapentin 100 mg PO TID 04/13/21 06/16/21 losartan 25 mg PO DAILY 04/13/21 06/16/21 metformin 500 mg PO TIDWM 04/13/21 06/16/21 ondansetron HCl 8 mg PO Q12H PRN 04/13/21 06/16/21 tramadol 50 mg PO DAILY PRN 04/13/21 06/16/21 liraglutide 0.6 mg/0.1 mL (18 mg/3 See Rx Instructions SUBCUT .COMPLEX 06/16/21 06/16/21 mL) subcutaneous pen injector Allergies Allergy/AdvReac Type Severity Reaction Status Date / Time Penicillins Allergy Mild Unknown Verified 07/05/21 19:00 Review of Systems Review of Systems: All systems reviewed & are unremarkable except as noted in HPI and below Constitutional: Constitutional: Denies body ache(s), Denies chills, Denies excessive sweating, Denies fatigue, Denies fever(s), Denies headache(s), Denies lethargy, Denies malaise, Denies weakness and Denies weight loss Eyes: Eyes: Denies blurry vision, Denies change in vision and Denies loss of vision ENT: Denies dizziness, Denies ear discharge, Denies headache(s), Denies lip swelling, Denies epistaxis, Denies nasal congestion, Denies neck pain, Denies throat swelling and Denies tongue swelling Cardiovascular: Cardiovascular: Denies chest pain, Denies chest pain at rest, Denies chest pain with activity, Denies diaphoresis, Denies rapid heart rate, Denies edema, Denies irregular heart rhythm, Denies lightheadedness, Denies palpitations, Denies dyspnea and Denies dyspnea on exertion Respiratory: Respiratory: Denies chest congestion, Denies cough, Denies hemoptysis, Denies dyspnea and Denies dyspnea on exertion Gastrointestinal: Gastrointestinal: Denies abdominal pain, Denies melena, Denies hematochezia, Denies diarrhea, Denies nausea, Denies vomiting and Denies hematemesis Musculoskeletal: Musculoskeletal: Denies abnormal gait, Denies deformity, Denies joint swelling, Denies limited range of motion, Denies neck pain and Denies numbness Neurologic: Denies Abnormal speech present, Denies abnormal gait, Denies confusion, Denies dizziness, Denies headache(s), Denies focal weakness, Denies loss of vision, Denies numbness, Denies Other visual disturbances, Denies Sensory deficit (Neuro) and Denies weakness Psychiatric: Psychiatric: Denies confusion, Denies depression, Denies auditory hallucinations, Denies homicidal ideation and Denies suicidal ideation Endocrine: Endocrine: Denies cold intolerance, Denies excessive sweating, Denies fatigue, Denies heat intolerance and Denies palpitations Hematologic/Lymphatic: Hematologic/Lymphatic: Denies easy bleeding and Denies easy bruising Allergic/Immunologic: Allergic/Immunologic: Denies lip swelling, Denies throat swelling and Denies tongue swelling PMFSH Past Medical History Medical History (Reviewed 03
[2021-07-05] MEDS: HYDROcodone/acetaminophen (*CRX) 5-325 MG TABLET 1 TAB PO (19:35)
[2021-07-05 19:48] LABS: Basophils Absolute Auto 0.1 K/mm3 (0.0-0.1); Basophils Percent Auto 0.5 % (0.2-1.2); Eosinophils Absolute Auto 0.3 K/mm3 (0-0.3); Eosinophils Percent Auto 3.1 % (0-4.4); Hematocrit 38.1 % (42.0-52.0); Hemoglobin 12.1 g/dL (14.0-18.0); Immature Granulocyte Absolute 0.03 K/mm3 (0.00-0.031); Immature Granulocyte Percent A 0.3 % (0-0.5); Lymphocytes Absolute Auto 2.82 K/mm3 (0.9-3.2); Lymphocytes Percent Auto 25.9 % (18.3-44.2); Mean Corpuscular HGB Conc 31.8 g/dl (32-36); Mean Corpuscular Hemoglobin 29.9 pg (26-34); Mean Corpuscular Volume 94.1 fl (80-100); Mean Platelet Volume 9.7 fl (7.4-10.4); Monocytes Absolute Auto 0.6 K/mm3 (0.1-0.6); Monocytes Percent Auto 5.8 % (2.6-8.5); Neutrophils Percent Auto 64.4 % (45.5-73.1); Platelet Count Result 228 k/mm3 (150-375); Red Blood Count 4.05 M/mm3 (4.6-6.20); Red Cell Distribution Width 15.9 % (11.5-14.5); White Blood Count 10.9 K/mm3 (4.5-10.0)
[2021-07-05 19:58] LABS: Alanine Aminotransferase 23 U/L (4-50); Albumin Level 4.3 g/dL (3.5-5.1); Alkaline Phosphatase 92 U/L (38-126); Anion Gap 7 mmol/L (8-16); Aspartate Amino Transferase 26 U/L (17-59); Bilirubin,Total 0.2 mg/dL (0.2-1.3); Blood Urea Nitrogen 16 mg/dL (9-20); Calcium 9.1 mg/dL (8.4-10.2); Carbon Dioxide 31 mmol/L (22-30); Chloride 98 mmol/L (98-107); Estimated CRCL calculation 175 ml/min; Estimated Glomerular Filt Rate > 60; Glucose 152 mg/dL (65-110); Potassium 3.4 mmol/L (3.4-5.0); Sodium 136 mmol/L (137-145)
[2021-07-05 20:07] LABS: Add Urine Microscopic? YES; Appearance Urine Cloudy (Clear); Bilirubin Urine Negative (Negative); Blood Urine Negative (Negative); Color Urine Yellow (Yellow); Glucose Urine UA Negative (Negative); Ketones Urine Negative (Negative); Leukocyte Esterase Ur Negative LEU/UL (Negative); Mucus Urine Few /lpf; Nitrate Urine Negative (Negative); Protein Urine Negative (Negative); RBC Urine 0-2 /hpf (0-2); Specific Grav Ur 1.028 (1.001-1.035); Squamous Epithelial Cell Urine Few /hpf (Few); Urobilinogen Urine Negative mg/dL (<2.0); WBC Urine 0-3 /hpf
[2021-07-05 20:09] VITALS: BP 144/87; PULSE 80; RESP 18; TEMP 36.8; O2SAT 96
[2021-07-05 20:16] LABS: Atypical Lymphocytes Present; Platelet Estimate Adequate (Adequate); Stomatocytes 1+ (NORMAL)
[2021-07-05 21:35] VITALS: BP 150/91; PULSE 90; RESP 16; O2SAT 97
== END 2021-07-05 21:48 | disposition home or self-care (01) ==
PROVIDERS: Emergency Provider Emergency Medicine; PCP Physician Assistant
DX: N50.812 Left testicular pain (principal); R10.32 Left lower quadrant pain; I50.9 Heart failure, unspecified; I11.0 Hypertensive heart disease with heart failure; J44.9 Chronic obstructive pulmonary disease, unspecified; E11.9 Type 2 diabetes mellitus without complications; Z79.84 Long term (current) use of oral hypoglycemic drugs; Z79.82 Long term (current) use of aspirin; F17.210 Nicotine dependence, cigarettes, uncomplicated; K42.9 Umbilical hernia without obstruction or gangrene; K40.90 Unilateral inguinal hernia, without obstruction or gangrene, not specified as recurrent; K76.0 Fatty (change of) liver, not elsewhere classified; K80.20 Calculus of gallbladder without cholecystitis without obstruction
CPT/HCPCS: 36415; 74177; 80053; 81001; 85025; 99284; A9270; Q9967

== ENCOUNTER 2021-07-08 10:30 | Outpatient (RCR) | payer BC, SELFPAY ==
--- NOTE | 2021-06-17 16:55 | PTOPEVAL ---
PHYSICAL THERAPY INITIAL EVALUATION. Thank you for referring Jerzy Leahy to [facility].? The patient is scheduled to be seen for therapy?2x/week for 4 weeks. Please review, sign, date and return this plan of care BERTHA. I agree with and certify that the following plan of care is medically necessary. Referring Physician Date Attending Provider: Felicia Ramos, PA *PT Outpatient Evaluation Start: 06/16/21 Evaluation Information Diagnosis Low back pain Onset chronic Additional Evaluation Detail Pt arrived 25 mins late for his initial evaluation today. He arrives to the clinic today with portable O2 donned and uses a single point cane. Subjective Information Pt reports back pain for over Query Text:As Reported By Patient/ 2 years. Pt reports a year and Family a half ago he fell off his couch and was unable to sit without pain. Pt states he cannot not sit upright without pain, and can stand for no longer than 10 mins. He states he can not bend over to put his socks and shoes on,. Omid reports he cannot reach behind his back to wipe himself, after he has a bowl movement he showers and uses the adaptive sprayer he has to clean himself. Pt states he has a torn MCL, and states the orthopedic doctor cannot do imaging at this time due tissue obstruction. Back pain on the L, leg pain on the R. Pt states he only gets out of his chair when he needs to use the restroom, the rest room is 20ft from his chair. Pt states he has a friend who visits him often, if this friend is over he will help to rock Omid's chair forward to assist getting up sooner and quicker. Prior Level of Function Activity Level (Last 3 Months) Occupation Does not work Hand Dominance Right Activity of Daily Living Ability Needs Some Help Indoor/Home Mobility Needs Some Help Community Mobility Dependent Stairs Ability
--- NOTE | 2021-07-01 09:00 | PCPTNOTE ---
Patient called & cancelled scheduled appointment this date due to bowel issues.
--- NOTE | 2021-07-08 11:52 | PTOPEVAL ---
PHYSICAL THERAPY PROGRESS NOTE AND DISCHARGE REPORT. Thank you for referring Jerzy Leahy to [facility].? The patient is to be discharged from skilled physical therapy services at this time. Please review, sign, date and return this plan of care BERTHA. I agree with and certify that the following plan of care is medically necessary. Referring Physician Date Attending Provider: Felicia Ramos, PA Evaluation Information Diagnosis Low back pain Onset chronic Additional Evaluation Detail Pt arrived 17 mins late today. Subjective Information Pt states he has not seen a Query Text:As Reported By Patient/ difference in his back pain at Family all since starting therapy. Pt states he has been non compliant with his exercises since starting therapy. Pt states he has been walking up and down his ramp about twice a day. Pain Assessment Lower Back Reported Pain Level 6 Pain Description Pressure Lowest Pain Intensity 6 Greatest Pain Intensity 9 Pain Score Pain Score 6: Self Report Lower Extremity Range of Motion General Lower Extremity Range of Motion WFL/Left,WFL/Right Lower Extremity Muscle Strength Testing General Lower Extremity Strength WFL/Left,WFL/Right Gross Lower Extremity Strength Grossly 4/5 in B LE, increase pain noted with resisted hip flexion on the L. Posture Posture Evaluation View Anterior Thoracic Spine Posture Flattened Lumbar Spine Posture Flattened Pelvis Posture Posterior Tilted Hip Posture (L) Externally Rotated,(R) Externally Rotated,(L) Abducted,(R) Abducted Balance Assessment Time Up Go (TUG) Timed Up and Go Test (TUG) (Seconds) 15 Assistive Devices Cane, Straight O2 donned 5 Time Sit to Stand Time in Seconds 26 5 Time Sit to Stand Comments Initially: 31s With use of UEs Query Text:Normative Data: If Greater , increase shortness of breath Than 15 Seconds, 74% Increase Risk for after Recurrent Falls Gait Assessment Gait Pattern Trendelenburg Gait,Wide Based Gait Gait Pattern Observed Trunk Lateral Lean - Left, Trunk Lateral Lean - Right Other Gait Observations Continues to demonstrate decreased gait speed, decreased distance limited d/t to endurance PT Clinical Summary PT Clinical Summary Jerzy presents to
== END 2021-07-09 11:49 | disposition home or self-care (01) ==
LOC: ANHPT 10:30
PROVIDERS: PCP Physician Assistant; Visit Provider Physician Assistant
DX: M54.50 Low back pain, unspecified (principal); M72.2 Plantar fascial fibromatosis
CPT/HCPCS: 97110; 97113; 97161

== ENCOUNTER 2021-07-21 14:45 | Outpatient (CLI) | payer BC, SELFPAY ==
--- NOTE | 2021-07-21 16:22 | WPDPFTINT ---
PFT Procedure Performed PFT Procedure Performed Spirometry with Pre/Post Bronchodilator Plethysmography (Lung Vol) Diffusing Cap (DLCO) Flow Vol Loop PFT Interpretation This is a pulmonary function test with pre and post-bronchodilator spirometry, plethysmography and diffusing capacity. The test was performed and results interpreted in accordance with the 2019 and 2005 ATS/ERS Task Force guidelines respectively using the Global Lung Function Initiative-2012 reference equations. Patient demonstrated good effort and cooperation. Reproducibility criteria were met. The quality of the pre bronchodilator spirometry maneuver was Grade A and post bronchodilator spirometry maneuver was Grade A. Findings: Spirometry: The contour the inspiratory and expiratory flow tracing are normal. The pre bronchodilator FVC is 3.40 L, 62% predicted. The pre bronchodilator FEV1 is 2.59 L, 59% predicted. The FEV1: FVC ratio 76%. The post bronchodilator FVC is 3.77 L, representing an 11% increase. The post bronchodilator FEV1 is 2.59 L, representing a 14% increase. The post bronchodilator FEV1: FVC ratio 78%. Plethysmography: The total lung capacity is 5.72 L, 78% predicted. The functional residual capacity is 2.60 L, 69% predicted. The residual volume is 2.31 L, 114% predicted. Diffusing capacity: The diffusion capacity unadjusted for hemoglobin and carboxyhemoglobin is 22.5, 68% predicted. Diffusing capacity adjusted for alveolar volume is 4.90, 106% predicted. Impression: The spirometry is normal without evidence of an obstructive abnormality. The lung volumes are normal without evidence of and restrictive abnormality. The FVC and FEV1 are moderately severe decreased without an obstructive or restrictive abnormality. This is an abnormal but nonspecific finding. There is significant improvement after inhaling a single dose of albuterol. The diffusing capacity unadjusted for hemoglobin and carboxyhemoglobin is mildly decreased and normalizes when adjusted for alveolar volume. There are no prior studies for comparison
== END 2021-07-21 14:46 | disposition home or self-care (01) ==
LOC: ANHPFT 14:48
PROVIDERS: PCP Physician Assistant; Visit Provider Internal Medicine Pulmonary Disease
DX: R06.00 Dyspnea, unspecified (principal)
CPT/HCPCS: 94060; 94726; 94729

== ENCOUNTER 2021-07-29 08:57 | Outpatient (CLI) | payer BC, SELFPAY ==
--- NOTE | ~2021-07-29 | MR_ITS ---
EXAMINATION: MR lumbar spine wo [facility] EXAM DATE: 07/29/2021 09:49 INDICATION: Low back pain. TECHNIQUE: Multi-sequential, multiplanar MR images of the lumbar spine were obtained without contrast . Sagittal T1, T2, T2 fat saturation images. Axial T2 weighted images. There is no prior study for comparison. FINDINGS: There is mild disc disease L3-S1. There is 3 mm retrolisthesis L4 on L5 and L5 on S1. The c onus medullaris terminates at the L1/2 level and has normal signal intensity and morphology. There a re no suspicious marrow signal abnormalities. Paraspinal soft tissue is unremarkable. Level by level evaluation: T12-L1: Disc does not extend beyond the endplate margin. Facet arthropathy: Mild. Neural foraminal stenosis: No stenosis. Central canal stenosis: No stenosis. L1-L2: Disc does not extend beyond the endplate margin. Facet arthropathy: Mild. Neural foraminal stenosis: No stenosis. Central canal stenosis: No stenosis. L2-L3: Disc does not extend beyond the endplate margin. Facet arthropathy: Mild. Neural foraminal stenosis: No stenosis. Central canal stenosis: No stenosis. L3-L4: Disc does not extend beyond the endplate margin. Facet arthropathy: Mild. Neural foraminal stenosis: No stenosis. Central canal stenosis: No stenosis. L4-L5: There is a mild diffuse disc bulge. Facet arthropathy: Mild to moderate. Neural foraminal stenosis: Mild to moderate bilateral. Central canal stenosis: Mild. L5-S1: There is a mild diffuse disc bulge. Facet arthropathy: Mild to moderate. Neural foraminal stenosis: Moderate right, mild to moderate left. Central canal stenosis: Mild. IMPRESSION: 1. Mild to moderate lumbar spondylosis. Reviewed, dictated and finalized at location B.
== END 2021-07-29 08:58 | disposition home or self-care (01) ==
LOC: ANHIMG 09:00
PROVIDERS: PCP Physician Assistant; Visit Provider Physician Assistant
DX: M47.896 Other spondylosis, lumbar region (principal)
CPT/HCPCS: 72148

== ENCOUNTER 2021-09-07 11:00 | Outpatient (RCR) | payer BC, SELFPAY ==
[2021-06-15 13:25] VITALS: BMI 55.0
[2021-06-15 13:37] VITALS: BMI 55.0
[2021-09-07 11:16] VITALS: BMI 54.3
[2021-09-07 11:19] VITALS: BMI 54.3
== END 2021-09-13 23:59 | disposition home or self-care (01) ==
LOC: ANHDMC 11:00
PROVIDERS: PCP Physician Assistant; Visit Provider Physician Assistant
DX: E66.01 Morbid (severe) obesity due to excess calories (principal); Z71.3 Dietary counseling and surveillance
CPT/HCPCS: 97802; 97803

== ENCOUNTER 2021-11-12 14:05 | Inpatient (IN) | payer BC, SELFPAY ==
[2021-11-12] VITALS (17 sets, daily range): BP systolic 115–159; BP diastolic 61–107; PULSE 96–123; RESP 16–25; TEMP 36.4–37.9; O2SAT 97–100; BMI 55.7
--- NOTE | ~2021-11-12 | XR_ITS ---
EXAMINATION: XR chest 1V portable DATE: 11/15/2021 05:46 INDICATION: COVID-19 pneumonia. TECHNIQUE: A single frontal view of the chest was obtained. COMPARISON: Chest single view 11/12/2021, chest CT 11/12/2021 FINDINGS: There is mild atelectasis at right lung base. No pleural effusion or pneumothorax. The hear t size is normal. IMPRESSION: 1. Mild atelectasis at right lung base. Reviewed, dictated and finalized at location A.
--- NOTE | ~2021-11-12 | XR_ITS ---
EXAMINATION: XR chest 1V portable 11/12/2021 15:05 INDICATION: Shortness of breath. Possible Covid. COPD. Hypertension. PROCEDURE: AP portable chest COMPARISON: Comparison to multiple prior studies sequentially, with oldest reviewed study dated 10/06. FINDINGS: The lungs are clear. The cardiomediastinal silhouette is within normal limits. There are no pleural effusions. There is no pneumothorax suspected. IMPRESSION: 1: NO ACUTE CARDIOPULMONARY DISEASE. Reviewed, dictated and finalized at location A.
--- NOTE | ~2021-11-12 | CT_ITS ---
EXAMINATION: CTA chest PE protocol DATE: 11/12/2021 15:43 INDICATION: Shortness of breath, COVID 19 positive TECHNIQUE: Computed tomography angiography (CTA) of the chest was performed with 200 mL Omnipaque-350 intravenous contrast timed to evaluate the pulmonary arteries. Coronal maximum intensity projection 3D-reconstructions were created by the technologist. The dose-length product (DLP) was 2200.20 mGy-cm . Automated exposure control and iterative reconstruction technique were employed. COMPARISON: 04/12/2021 FINDINGS: The pulmonary arteries are moderately well-opacified. No pulmonary embolism is identified. There are are minimal patchy airspace opacities in the lungs. Small stable pulmonary nodules are iden tified, consistent with old granulomatous disease. No pathologically enlarged thoracic lymph nodes ar e identified. The heart size is normal. The liver is diffusely low in attenuation when compared with the spleen, consistent with hepatic steatosis. Mild periportal lymphadenopathy is noted, likely react gael. IMPRESSION: 1. No pulmonary embolism identified. 2. Patchy airspace opacities of the lungs, consistent with history of COVID 19. Reviewed, dictated and finalized at location L.
--- NOTE | ~2021-11-12 | US_ITS ---
EXAMINATION:US venous doppler LE LT INDICATION:Erythema and leg swelling. TECHNIQUE: Multiple grayscale, color flow and Doppler images of the left lower extremity deep venous systems were obtained and reviewed. COMPARISON:No prior studies for comparison. FINDINGS: The common femoral, superficial femoral and popliteal veins demonstrate normal respiratory variation, augmentation and compressibility. Color flow is also seen within the posterior tibial, pe roneal, greater saphenous and profunda veins. IMPRESSION: 1: No lower extremity deep venous thrombosis. Reviewed, dictated and finalized at location A.
--- NOTE | 2021-11-12 14:12 | ECG_ITS ---
Measurements Intervals [place] Rate: 115 P: 91 NE: 183 QRS: 32 QRSD: 100 T: 64 QT: 291 QTc: 403 Interpretive Statements SINUS TACHYCARDIA NONSPECIFIC T-WAVE ABNORMALITY BASELINE ARTIFACT- I, II, III, AVR, AVL, AVF ABNORMAL ECG Electronically Signed On 11-12-2021 14:51:08 CDT by César Swanson D.O.
--- NOTE | 2021-11-12 14:22 | ED.SOB ---
HPI - SOB/Dyspnea General Chief Complaint: Shortness of Breath/Dyspnea <Babs Best PA-C - Last Filed: 11/12/21 19:58> Stated Complaint: SOB <LIVIA Islas Last Filed: 11/12/21 19:58> Time Seen by Provider: 11/12/21 14:10 <LIVIA Islas Last Filed: 11/12/21 19:58> Source: patient <LIVIA Islas Last Filed: 11/12/21 19:58> Mode of arrival: EMS <LIVIA Islas Last Filed: 11/12/21 19:58> Limitations: no limitations <LIVIA Islas Last Filed: 11/12/21 19:58> History of Present Illness HPI Narrative: Patient is a 46-year-old male, with a past medical history of morbid obesity, DM, COPD, CHF, chronic respiratory failure on 3.5L NC at home, who presents to the ED via EMS with c/o increased SOB. Patient reports he uses a trilogy at night and typically wakes up coughing. This typically resolves on its own. Today he had increased coughing, which led to increased shortness of breath. Denies any significant chest pain. Gave himself 3 nebulizer treatments at home prior to arrival but denied relief with this. He increased his oxygen from 3.5L to 6 L. EMS was then called. Patient reports an episode of posttussive nausea and vomiting. Also reports subjective fever today and redness/swelling/tenderness to L lower leg. States he has otherwise felt well the last couple days. Patient's office clerk assistant is Dr. Staley. Patient is not vaccinated for COVID. <LIVIA Islas Last Filed: 11/12/21 19:58> Related Data Home Medications: Home Medications Medication Instructions Recorded Confirmed carvedilol 6.25 mg tablet 6.25 mg PO Q12H 10/18/20 09/16/21 albuterol sulfate 1.25 mg/3 mL 2.5 mg inhalation Q4H PRN 04/13/21 09/16/21 solution for nebulization Shortness Of Breath aspirin 81 mg tablet 81 mg PO DAILY 04/13/21 09/16/21 bupropion HCl 300 mg 24 hr tablet, 300 mg PO QAM 04/13/21 09/16/21 extended release gabapentin 100 mg capsule 100 mg PO TID 04/13/21 09/16/21 losartan 25 mg tablet 25 mg PO DAILY 04/13/21 09/16/21 tramadol 50 mg tablet 50 mg PO DAILY PRN Pain 04/13/21 09/16/21 metformin 500 mg tablet 500 mg PO TID 09/16/21 09/16/21 nystatin 100,000 unit/gram topical 1 applic topical Q12HR PRN 09/16/21 09/16/21 powder <Babs Best PA-C - Last Filed: 11/12/21 19:58> Allergies/Adverse Reactions: Allergies Allergy/AdvReac Type Severity Reaction Status Date / Time Penicillins Allergy Mild Unknown Verified 09/16/21 14:49 <Babs Best PA-C - Last Filed: 11/12/21 19:58> Review of Systems Review of Systems: CONSTITUTIONAL: Reports subjective fever. ENT: Denies rhinorrhea, congestion, sore throat. CARDIOVASCULAR: Denies chest pain. RESPIRATORY: Reports cough, dyspnea. GASTROINTESTINAL: Reports N/V. Denies abdominal pain or diarrhea. SKIN: Reports redness and swelling to the left lower leg. MUSCULOSKELETAL: Reports pain to left lower leg. <Babs Best PA-C - Last Filed: 11/12/21 19:58> All systems reviewed & are unremarkable except as noted in HPI and below <Babs Best PA-C - Last Filed: 11/12/21 19:58> [facility] Past Medical History Medical History: Medical History Chronic respiratory failure with hypoxia and hypercapnia Congestive heart failure COPD (chronic obstructive pulmonary disease) DM2 (diabetes mellitus, type 2) Hypertension Obesity hypoventilation syndrome Tobacco abuse <Babs Best PA-C - Last Filed: 11/12/21 19:58> Surgical History Surgical History: Surgical History H/O cardiac catheterization x2 without intervention H/O hernia repair History of tonsillectomy <Babs Best PA-C - Last Filed: 11/12/21 19:58> Family History Family History: Family History Father Diabetes mellitus Other Acute myocardial infa
[2021-11-12 14:28] LABS: Hematocrit 38.6 % (42.0-52.0); Hemoglobin 12.5 g/dL (14.0-18.0); Mean Corpuscular HGB Conc 32.4 g/dl (32-36); Mean Corpuscular Hemoglobin 31.1 pg (26-34); Mean Platelet Volume 9.9 fl (7.4-10.4); Platelet Count Result 199 k/mm3 (150-375); Red Blood Count 4.02 M/mm3 (4.6-6.20); Red Cell Distribution Width 13.8 % (11.5-14.5); White Blood Count 17.2 K/mm3 (4.5-10.0)
[2021-11-12 14:37] LABS: INR 1.1; Prothrombin Time 13.6 Seconds (11.1-14.7)
[2021-11-12 14:38] LABS: Partial Thromboplastin Time 25.9 SECONDS (22.3-36.8)
[2021-11-12 14:48] LABS: Alanine Aminotransferase 38 U/L (6-50); Albumin Level 4.2 g/dL (3.5-5.1); Alkaline Phosphatase 76 U/L (38-126); Anion Gap 10 mmol/L (8-16); Aspartate Amino Transferase 35 U/L (17-59); Bilirubin,Total 0.6 mg/dL (0.2-1.3); Blood Urea Nitrogen 12 mg/dL (9-20); Calcium 8.9 mg/dL (8.4-10.2); Carbon Dioxide 28 mmol/L (22-30); Chloride 96 mmol/L (98-107); Estimated CRCL calculation 192 ml/min; Estimated Glomerular Filt Rate > 60; Glucose 155 mg/dL (65-110); Potassium 3.8 mmol/L (3.4-5.0); Sodium 134 mmol/L (137-145)
[2021-11-12 14:51] LABS: NT Pro B Type Natriuretic Pept 93 pg/mL (5-100); Troponin I 0.022 ng/mL (0.000-0.034)
[2021-11-12 14:52] LABS: Band Neutrophils Percent 37 % (0-6); Basophils Absolute Manual 0.17 K/mm3 (0.0-0.1); Basophils Percent Manual 1 % (0-1); Lymphocytes Absolute Manual 0.86 K/mm3 (1.1-4.5); Monocytes Absolute Manual 0.34 K/mm3 (0.1-0.90); Monocytes Percent Manual 2 % (3-9); Neutrophils Absolute Manual 15.82 K/mm3 (1.3-6.7); Neutrophils Percent Manual 55 % (46-73); Platelet Estimate Adequate (Adequate); Total Cells Counted 100
[2021-11-12 15:04] LABS: SARS-CoV-2 RNA PCR Positive
[2021-11-12] MEDS: ONDANSETRON INJ 4 MG/2 ML VIAL IV PUSH ×2 (15:49→22:12)
[2021-11-12] MEDS: SODIUM CHLORIDE 0.9% IV 1,000 ML 999 ML IV CONT (15:50)
[2021-11-12 17:26] LABS: Reflex Lactic Acid Yes or No Add Lactic
[2021-11-12] MEDS: oxyCODONE/ACETAMINOPHEN (*CRX) 5-325 MG TABLET 1 TABLET PO ×2 (18:04→22:12)
--- NOTE | 2021-11-12 18:45 | PM.IMHP ---
H&P: HPI History of Present Illness Date/Time: 11/12/21 18:45 Chief Complaint: Shortness of breath. Narrative: This is a pleasant 46-year-old male with chronic respiratory failure on oxygen, obstructive sleep apnea on Trilogy, type 2 diabetes mellitus, hypertension, and other co-morbidities who presented to the emergency department via EMS from home for evaluation of shortness of breath. It is not unusual for him to have a productive cough in the mornings after he removes his trilogy mask however this morning his cough was more productive and he became increasingly short of breath due to continuous coughing jags. He coughs so hard that he had an episode of posttussive emesis. Prior to arrival to the ER he did 3 nebulizer treatments without significant relief but he felt a bit better after increasing his oxygen to 4 L. He reports feeling in his usual state of health last night when he went to bed however he admits that he has had a bit of a decreased appetite and sinus congestion for the past couple of days. He did test positive for SARS-CoV-2 by PCR on arrival to the emergency department and with further questioning he admits that he has not yet been vaccinated. At the time my evaluation he is feeling better and his main complaint is that of pain in the left lower leg which he noticed just this morning was painful and red, similar to when he had cellulitis in the past. He has not been running fever at home though he did have a low-grade temperature on arrival to the ED. Review of Systems Review of Systems: Twelve systems were reviewed. He denies headache and neck ache. No sore throat. No chest or pleuritic pain. He is compliant with his trilogy unit at nighttime. He had posttussive emesis today but has had no further episodes of vomiting. Appetite remains a bit decreased. Smell and taste are okay. No significant loose stools. No dysuria. He does not really check his glucose at home. No blurry vision, polydipsia, or polyuria. Except as documented, all other systems were reviewed and are negative. [facility] Past Medical History Medical History (Updated 11/12/21 @ 21:57 by Angela Manning PA-C) Anxiety and depression Chronic obstructive pulmonary disease Chronic respiratory failure with hypoxia and hypercapnia He is on continuous oxygen during the day and uses a trilogy unit at nighttime. Gastroesophageal reflux disease Heart failure, type unknown Hypertension Obesity hypoventilation syndrome Obstructive sleep apnea Tobacco abuse Type 2 diabetes mellitus Surgical History Surgical History (Updated 11/12/21 @ 19:59 by Angela Manning PA-C) History of cardiac catheterization No intervention. History of hernia repair History of tonsillectomy Family History Family History Father Diabetes mellitus Other Acute myocardial infarction Social History Social History (Updated 11/12/21 @ 21:58 by Angela Manning PA-C) Social History: Patient is and lives with his and children and [place]. He smoked about a pack of cigarettes a day for 32 years and quit in January 2021. He drinks alcohol rarely and in moderation. Occasional marijuana use, typically in the form of edibles. He designates his , Candie Leahy, as his surrogate decision maker and he wishes to be a full code. Spiritual care concerns: No Meds Home Medications and Allergies Home Medications Medication Instructions Recorded Confirmed Type carvedilol 6.25 mg tablet 6.25 mg PO Q12H 10/18/20 11/12/21 History acetaminophen 500 mg tablet 500 mg PO Q6H PRN Pain/Discomfort 10/19/20 11/12/21 Rx (Tylenol Extra Strength) #10 tabs pantoprazole 40 mg tablet,delayed 40 mg PO QAM 4 weeks #28 tabs 10/19/20 11/12/21 Rx release (Protonix) albuterol sulfate 1.25 mg/3 mL 2.5 mg inhalation Q4H PRN 04/13/21 11/12/21 History solution for nebulization Shortness Of Breath aspirin 81 mg tabl
--- NOTE | 2021-11-12 20:25 | ADMGEN ---
This patient, Jerzy Leahy, was admitted to Medical Room 256-. Patient/family oriented to hospital policies and general routines including ID bracelet, bed and alarms, visiting hours, pain management, procedures, bathroom and other care routines, personal items, smoking policy, room service/diet, and visiting hours. Information on how to activate the Rapid Response Team has been discussed. Patient/Family are encouraged to report perceived risks to care and to ask questions if they do not understand what they are told or what they should do.
[2021-11-12] MEDS: IPRATROPIUM BR 0.02% INH SOLN 0.5 MG/2.5 ML VIAL (22:38)
[2021-11-12] MEDS: ALBUTEROL SULFATE NEB 2.5 MG/0.5 ML INH (22:38)
[2021-11-12] MEDS: carvediloL 6.25 MG TABLET PO (22:38)
[2021-11-12] MEDS: traZODone HCL 50 MG TABLET PO (22:39)
[2021-11-12] MEDS: REMDESIVIR 200 MG/NS 250 ML 200 MG/250 ML BAG 250 MG IVPB (22:39)
[2021-11-12] MEDS: ALBUTEROL SULFATE NEB 2.5 MG/3 ML INH INHALATION (23:14)
[2021-11-12] MEDS: IPRATROPIUM BR 0.02% INH SOLN 0.5 MG/2.5 ML VIAL INHALATION (23:14)
[2021-11-12 23:19] LABS: Lactic Acid Reflex 3.4 mmol/L (0.7-2.0)
[2021-11-12 23:44] LABS: Lactate Dehydrogenase 681 U/L (313-618)
[2021-11-12 23:55] LABS: Hemoglobin A1C 6.6 % (<5.7)
[2021-11-13] VITALS (21 sets, daily range): BP systolic 111–137; BP diastolic 45–73; PULSE 74–119; RESP 16–32; TEMP 36.6–38.3; O2SAT 95–99
[2021-11-13] MEDS: oxyCODONE/ACETAMINOPHEN (*CRX) 5-325 MG TABLET 1 TABLET PO ×3 (03:16→22:25)
[2021-11-13] MEDS: ALBUTEROL SULFATE NEB 2.5 MG/3 ML INH INHALATION ×5 (03:18→20:25)
[2021-11-13] MEDS: IPRATROPIUM BR 0.02% INH SOLN 0.5 MG/2.5 ML VIAL INHALATION ×5 (03:19→20:25)
[2021-11-13] MEDS: ONDANSETRON INJ 4 MG/2 ML VIAL IV PUSH (03:44)
[2021-11-13 05:37] LABS: Hemoglobin 11.4 g/dL (14.0-18.0); Mean Corpuscular HGB Conc 32.6 g/dl (32-36); Mean Corpuscular Hemoglobin 31.5 pg (26-34); Mean Corpuscular Volume 96.7 fl (80-100); Mean Platelet Volume 10.6 fl (7.4-10.4); Platelet Count Result 200 k/mm3 (150-375); Red Blood Count 3.62 M/mm3 (4.6-6.20); White Blood Count 17.6 K/mm3 (4.5-10.0)
[2021-11-13 05:39] LABS: Alanine Aminotransferase 34 U/L (6-50); Albumin Level 3.8 g/dL (3.5-5.1); Alkaline Phosphatase 65 U/L (38-126); Anion Gap 10 mmol/L (8-16); Aspartate Amino Transferase 34 U/L (17-59); Bilirubin,Total 0.5 mg/dL (0.2-1.3); Blood Urea Nitrogen 10 mg/dL (9-20); Calcium 8.2 mg/dL (8.4-10.2); Carbon Dioxide 27 mmol/L (22-30); Chloride 96 mmol/L (98-107); Estimated CRCL calculation 176 ml/min; Estimated Glomerular Filt Rate > 60; Glucose 160 mg/dL (65-110); INR 1.4; Magnesium 1.2 mg/dL (1.6-2.3); Potassium 3.6 mmol/L (3.4-5.0); Prothrombin Time 16.4 Seconds (11.1-14.7); Sodium 133 mmol/L (137-145)
--- NOTE | 2021-11-13 07:25 | PM.IMPN ---
Progress Note: A&P Assessment and Plan (1) Sepsis: Qualifiers: Sepsis acute organ dysfunction status: unspecified Sepsis type: sepsis due to unspecified organism Qualified Code(s): A41.9 - Sepsis, unspecified organism Code(s): A41.9 - Sepsis, unspecified organism Status: Acute Assessment and Plan: Febrile to 100.9 this morning, leukocytosis still 17, intermittent tachycardia. BCX with no growth. Sputum cx pending. Cellulitis does not appear to be worsening. COVID 19 - breathing does not appear to be worsening but patient also does not seem to have improved. Clinically stable. -Continue Imipenem and vancomycin for ceullitis -Daily ESR & CRP -Continue remdesivir, dexamethasone for COVID19 (2) Cellulitis of left lower extremity: Code(s): L03.116 - Cellulitis of left lower limb Status: Acute Assessment and Plan: Leukocytosis unchanged. CRP 15 on admission. Does not appear to be worsening. -Continue imipenem & vancomycin -Trend CRP (3) COVID-19: Code(s): U07.1 - COVID-19 Status: Acute Assessment and Plan: CTA chest with bilateral ground glass opacities. Was back down to baseline 3.5L earlier in the morning. -Continue remdesivir #2 -Continue dexamethasone -Scheduled duo nebs -Guaifenesin -Chest physiotherapy (4) Chronic obstructive pulmonary disease: Code(s): J44.9 - Chronic obstructive pulmonary disease, unspecified Status: Acute Assessment and Plan: No acute exacerbation. Continue maintenance inhalers. (5) Chronic respiratory failure with hypoxia and hypercapnia: Code(s): J96.11 - Chronic respiratory failure with hypoxia; J96.12 - Chronic respiratory failure with hypercapnia Status: Acute Assessment and Plan: He has been weaned to his home oxygen requirement. Patient may use his trilogy from home if he brought it with him or otherwise he will be provided with the BiPAP to wear while sleeping. (6) Congestive heart failure: Code(s): I50.9 - Heart failure, unspecified Status: Chronic Assessment and Plan: Compensated. -Continue metolazone -Continue furosemide -Continue carvedilol (7) Type 2 diabetes mellitus: Code(s): E11.9 - Type 2 diabetes mellitus without complications Status: Acute Assessment and Plan: Holding metformin -SSI -POC glucose (8) Hypertension: Qualifiers: Hypertension type: primary hypertension Qualified Code(s): I10 - Essential (primary) hypertension Code(s): I10 - Essential (primary) hypertension Status: Chronic Assessment and Plan: Controlle. Takes carvedilol and losartan at home. Continue home medications. Subjective Date/time seen: 11/13/21 07:25 Patient reports feeling shortness of breath. Says he has had a fever and feels like crap. Patient reports at baseline he vomits every morning when he wakes. Now he is reporting the secretions are causing him to vomit. Says that prior to coming to the hospital he had also vomited multiple times. Review of Systems Respiratory: Respiratory: Reports dyspnea Exam Narrative: GENERAL: ill appearing HEENT: Normocephalic, atraumatic, anicteric NECK: Thick CV: Normal S1, S2, RRR, No MRG RESP: distant breath sounds, no wheezes, rhonchi or rales on exam. Tachypnea. No use of accessory muscles to breathe. EXTREMITIES: Warm and well perfused, no clubbing, cyanosis. Left lower extremity with erythema extending from ankle up to the knee. No crepitus. No bleeding or drainage and remains within the borders drawn upon arrival. SKIN: warm, dry and intact. NEURO: CN 2-12 grossly intact. Objective Data Vital Signs Vital Signs: Vital Signs - 24 hr 11/12/21 14:04 11/12/21 14:27 11/12/21 14:28 Temperature 100.3 F H Pulse Rate 115 H 115 H Respiratory Rate 16 Blood Pressure 146/107 H Pulse Oximetry 100 10
[2021-11-13 07:30] LABS: Glucose Point of Care 187 mg/dl (65-105)
[2021-11-13] MEDS: POTASSIUM CHLORIDE 20 MEQ TABLET 40 MEQ PO (08:12)
[2021-11-13] MEDS: buPROPion HCL XL (24 HR) 150 MG TABCR 300 MG PO (08:13)
[2021-11-13] MEDS: metOLazone 2.5 MG TABLET PO (08:13)
[2021-11-13] MEDS: LOSARTAN POTASSIUM 25 MG TABLET PO (08:13)
[2021-11-13] MEDS: PANTOPRAZOLE 40 MG TABLET PO (08:13)
[2021-11-13] MEDS: MAGNESIUM SULF 2 GM/WATER 50ML 2 GM/50 ML BAG IVPB (08:13)
[2021-11-13] MEDS: carvediloL 6.25 MG TABLET PO ×2 (08:13→20:45)
[2021-11-13] MEDS: guaiFENesin 12 HR 600 MG TABCR PO ×2 (08:13→20:45)
[2021-11-13] MEDS: ASPIRIN 81 MG ENTERIC TABLET PO (08:14)
[2021-11-13] MEDS: GABAPENTIN 100 MG CAPSULE PO ×3 (08:14→16:39)
[2021-11-13] MEDS: FUROSEMIDE 40 MG TABLET PO ×2 (08:14→16:39)
[2021-11-13] MEDS: ENOXAPARIN 40 MG/0.4 ML SYRINGE SUB-Q (08:15)
[2021-11-13] MEDS: SCOPOLAMINE 1.5 MG PATCH TRANSDERM (10:03)
[2021-11-13 11:42] LABS: Glucose Point of Care 187 mg/dl (65-105)
[2021-11-13] MEDS: ACETAMINOPHEN 325 MG TABLET 650 MG PO ×2 (16:01→20:11)
[2021-11-13 16:11] LABS: Glucose Point of Care 164 mg/dl (65-105)
[2021-11-13 20:26] LABS: Glucose Point of Care 183 mg/dl (65-105)
[2021-11-13] MEDS: traZODone HCL 50 MG TABLET PO (20:45)
[2021-11-13] MEDS: REMDESIVIR 100 MG/NS 250 ML 100 MG/250 ML BAG 250 MG IVPB (22:23)
[2021-11-14] VITALS (28 sets, daily range): BP systolic 101–134; BP diastolic 56–73; PULSE 60–97; RESP 14–24; TEMP 35.8–37.1; O2SAT 94–100
[2021-11-14] MEDS: IPRATROPIUM BR 0.02% INH SOLN 0.5 MG/2.5 ML VIAL INHALATION ×6 (00:05→20:31)
[2021-11-14] MEDS: ALBUTEROL SULFATE NEB 2.5 MG/3 ML INH INHALATION ×6 (00:05→20:31)
[2021-11-14] MEDS: oxyCODONE/ACETAMINOPHEN (*CRX) 5-325 MG TABLET 1 TABLET PO ×4 (02:02→17:08)
[2021-11-14 05:34] LABS: Basophils Percent Auto 0.2 % (0.2-1.2); Hemoglobin 11.3 g/dL (14.0-18.0); Immature Granulocyte Percent A 0.7 % (0-0.5); Lymphocytes Absolute Auto 0.99 K/mm3 (0.9-3.2); Lymphocytes Percent Auto 6.9 % (18.3-44.2); Mean Corpuscular HGB Conc 31.4 g/dl (32-36); Mean Corpuscular Hemoglobin 30.7 pg (26-34); Mean Corpuscular Volume 97.8 fl (80-100); Mean Platelet Volume 10.5 fl (7.4-10.4); Monocytes Absolute Auto 0.8 K/mm3 (0.1-0.6); Monocytes Percent Auto 5.8 % (2.6-8.5); Neutrophils Absolute Auto 12.4 K/mm3 (1.3-6.7); Neutrophils Percent Auto 86.4 % (45.5-73.1); Platelet Count Result 180 k/mm3 (150-375); Red Blood Count 3.68 M/mm3 (4.6-6.20); White Blood Count 14.4 K/mm3 (4.5-10.0)
[2021-11-14 05:51] LABS: INR 1.3; Prothrombin Time 15.8 Seconds (11.1-14.7)
--- NOTE | 2021-11-14 05:52 | PC.NURSE ---
contacted lab for the 2nd time regarding 0400 vanc trough. It has been received
[2021-11-14 06:08] LABS: Anion Gap 9 mmol/L (8-16); Blood Urea Nitrogen 18 mg/dL (9-20); Calcium 8.8 mg/dL (8.4-10.2); Carbon Dioxide 35 mmol/L (22-30); Chloride 90 mmol/L (98-107); Estimated CRCL calculation 143 ml/min; Estimated Glomerular Filt Rate > 60; Glucose 152 mg/dL (65-110); Potassium 3.2 mmol/L (3.4-5.0); Sodium 134 mmol/L (137-145)
[2021-11-14 06:11] LABS: Vancomycin Trough 11.4 ug/mL (10.0-20.0)
--- NOTE | 2021-11-14 06:36 | PC.NURSE ---
Addendum entered by Deidra Tabor RN 11/14/21 06:39: initial call to lab was made at 0516 Original Note: contacted lab regarding vanc trough that was due at 4am. office clerk assistant was on the floor to draw the lab at 0420. specimen has not been received. per office clerk assistant she will send down now.
[2021-11-14 06:54] LABS: CRP 36.8 mg/dL (<1.0)
[2021-11-14 08:10] LABS: Glucose Point of Care 190 mg/dl (65-105)
[2021-11-14] MEDS: POTASSIUM CHLORIDE 20 MEQ TABLET 40 MEQ PO (09:52)
[2021-11-14] MEDS: buPROPion HCL XL (24 HR) 150 MG TABCR 300 MG PO (09:52)
[2021-11-14] MEDS: ASPIRIN 81 MG ENTERIC TABLET PO (09:52)
[2021-11-14] MEDS: carvediloL 6.25 MG TABLET PO ×2 (09:52→20:42)
[2021-11-14] MEDS: GABAPENTIN 100 MG CAPSULE PO ×3 (09:53→17:07)
[2021-11-14] MEDS: LOSARTAN POTASSIUM 25 MG TABLET PO (09:53)
[2021-11-14] MEDS: FUROSEMIDE 40 MG TABLET PO ×2 (09:53→17:07)
[2021-11-14] MEDS: metOLazone 2.5 MG TABLET PO (09:53)
[2021-11-14] MEDS: ENOXAPARIN 40 MG/0.4 ML SYRINGE SUB-Q (09:53)
[2021-11-14] MEDS: guaiFENesin 12 HR 600 MG TABCR PO ×2 (09:53→20:42)
[2021-11-14] MEDS: PANTOPRAZOLE 40 MG TABLET PO (09:53)
[2021-11-14 11:29] LABS: Glucose Point of Care 199 mg/dl (65-105)
[2021-11-14 16:27] LABS: Glucose Point of Care 299 mg/dl (65-105)
--- NOTE | 2021-11-14 16:49 | PM.IMPN ---
Progress Note: A&P Assessment and Plan (1) Sepsis: Qualifiers: Sepsis acute organ dysfunction status: unspecified Sepsis type: sepsis due to unspecified organism Qualified Code(s): A41.9 - Sepsis, unspecified organism Code(s): A41.9 - Sepsis, unspecified organism Status: Acute Assessment and Plan: Patient meets sepsis criteria with low-grade fever, leukocytosis with bandemia, and lactic acidosis in the setting of cellulitis and COVID. Fever resolving. Clinically improving. WBC better but CRP climbing. Blood cultures no growth to date. Sputum Cx growth of normal oropharyngeal zoe. Continue IV abx. Continue current treatment for COVID. (2) Cellulitis of left lower extremity: Code(s): L03.116 - Cellulitis of left lower limb Status: Acute Assessment and Plan: As above. LE venous doppler negative for DVT. He has been started on imipenem and vancomycin per antibiotic stewardship recommendations. WBC better. Follow. (3) COVID-19: Code(s): U07.1 - COVID-19 Status: Acute Assessment and Plan: Patient tested positive for COVID on admission. LDH 681, CRP 15. Chest CTA shows no PE but infiltrates consistent with COVID-19. Given the mildly increasing oxygen requirement, he has been started on dexamethasone and remdesivir. He has been started on scheduled bronchodilators and Cornet valve. Mucinex have been added to help mobilize secretions. WBC better but CRP higher. O2 requirement at 4L. Isolation per protocol. May worsen still. Repeat CXR in the morning. (4) Chronic obstructive pulmonary disease: Code(s): J44.9 - Chronic obstructive pulmonary disease, unspecified Status: Acute Assessment and Plan: Mild scattered wheezing. Continue steroids and neb treatments. Continue to monitor (5) Chronic respiratory failure with hypoxia and hypercapnia: Code(s): J96.11 - Chronic respiratory failure with hypoxia; J96.12 - Chronic respiratory failure with hypercapnia Status: Acute Assessment and Plan: Patient on 3L chronically. He is currently 3-4L. Wean O2 as tolerated. (6) Congestive heart failure: Code(s): I50.9 - Heart failure, unspecified Status: Chronic Assessment and Plan: Clinically compensated. Continue diuretics and monitor volume status closely.? (7) Type 2 diabetes mellitus: Code(s): E11.9 - Type 2 diabetes mellitus without complications Status: Acute Assessment and Plan: A1c 6.6. The patient's blood glucose was reviewed on 11/14 Glucose remains reasonably well controlled. Continue AccuCheks covering with sliding scale. Hypoglycemia protocol available as needed. Continue to monitor. (8) Hypertension: Qualifiers: Hypertension type: primary hypertension Qualified Code(s): I10 - Essential (primary) hypertension Code(s): I10 - Essential (primary) hypertension Status: Chronic Assessment and Plan: Patient's blood pressure was reviewed on 11/14 Blood pressure remains well controlled. Will continue current medications. Plan DVT prophylaxis: Lovenox Code status: Full Diet: Diabetic Subjective Date/time seen: 11/14/21 16:49 Interval history: 46yo male with chronic respiratory failure (3L), COPD, CHF, DM and CKD here for SOB and found to have COVID. He is not vaccinated against COVID. Assuming care. Chart reviewed. Hx reviewed with patient. He normally wears 3L at home. He normally coughs in the morning once he removes his Trelegy mask. He is complinat with his Trelegy. On 11/12, he was coughing in the morning but it persisted. His symptoms worsened and he increased his O2 to 3.5L. He states EMS increased him to 6L. He feels better today. Leg pain much better. Still with cough but only minimal production. He is up to the chair and to the BR. He does complain of sciatic nerve pain from laying on the gurney in ED. He takes Percocet reg
[2021-11-14] MEDS: INSULIN ASPART (*BKC) 100 UNITS/ML SUB-Q (17:07)
[2021-11-14] MEDS: traZODone HCL 50 MG TABLET PO (20:42)
[2021-11-14] MEDS: REMDESIVIR 100 MG/NS 250 ML 100 MG/250 ML BAG 250 MG IVPB (22:11)
[2021-11-15] VITALS (23 sets, daily range): BP systolic 118–146; BP diastolic 55–90; PULSE 42–87; RESP 18–32; TEMP 35.6–36.9; O2SAT 94–100
[2021-11-15] MEDS: ALBUTEROL SULFATE NEB 2.5 MG/3 ML INH INHALATION ×6 (00:36→20:40)
[2021-11-15] MEDS: IPRATROPIUM BR 0.02% INH SOLN 0.5 MG/2.5 ML VIAL INHALATION ×6 (00:36→20:40)
[2021-11-15] MEDS: oxyCODONE/ACETAMINOPHEN (*CRX) 5-325 MG TABLET 1 TABLET PO ×3 (02:34→16:49)
[2021-11-15 05:43] LABS: Basophils Percent Auto 0.2 % (0.2-1.2); Hematocrit 37.2 % (42.0-52.0); Hemoglobin 12.1 g/dL (14.0-18.0); Immature Granulocyte Absolute 0.07 K/mm3 (0.00-0.031); Immature Granulocyte Percent A 0.6 % (0-0.5); Lymphocytes Absolute Auto 1.39 K/mm3 (0.9-3.2); Lymphocytes Percent Auto 11.3 % (18.3-44.2); Mean Corpuscular HGB Conc 32.5 g/dl (32-36); Mean Corpuscular Hemoglobin 30.8 pg (26-34); Mean Corpuscular Volume 94.7 fl (80-100); Mean Platelet Volume 10.4 fl (7.4-10.4); Monocytes Absolute Auto 0.8 K/mm3 (0.1-0.6); Monocytes Percent Auto 6.5 % (2.6-8.5); Neutrophils Absolute Auto 10.1 K/mm3 (1.3-6.7); Neutrophils Percent Auto 81.4 % (45.5-73.1); Platelet Count Result 212 k/mm3 (150-375); Red Blood Count 3.93 M/mm3 (4.6-6.20); Red Cell Distribution Width 13.7 % (11.5-14.5); White Blood Count 12.4 K/mm3 (4.5-10.0)
[2021-11-15 06:02] LABS: Lactic Acid Reflex 1.4 mmol/L (0.7-2.0); Vancomycin Trough 20.4 ug/mL (10.0-20.0)
[2021-11-15 06:07] LABS: INR 1.1; Prothrombin Time 14.2 Seconds (11.1-14.7)
[2021-11-15 06:14] LABS: Alanine Aminotransferase 31 U/L (6-50); Albumin Level 4.2 g/dL (3.5-5.1); Anion Gap 9 mmol/L (8-16); Aspartate Amino Transferase 23 U/L (17-59); Blood Urea Nitrogen 21 mg/dL (9-20); Calcium 9.1 mg/dL (8.4-10.2); Carbon Dioxide 36 mmol/L (22-30); Chloride 87 mmol/L (98-107); Estimated CRCL calculation 154 ml/min; Estimated Glomerular Filt Rate > 60; Glucose 211 mg/dL (65-110); Magnesium 1.9 mg/dL (1.6-2.3); Phosphorus 3.9 mg/dL (2.5-4.5); Potassium 3.5 mmol/L (3.4-5.0); Sodium 132 mmol/L (137-145)
[2021-11-15 06:20] LABS: CRP 25.8 mg/dL (<1.0); Lactate Dehydrogenase 557 U/L (313-618)
[2021-11-15 07:33] LABS: Glucose Point of Care 196 mg/dl (65-105)
[2021-11-15] MEDS: ENOXAPARIN 40 MG/0.4 ML SYRINGE SUB-Q (08:50)
[2021-11-15] MEDS: ASPIRIN 81 MG ENTERIC TABLET PO (08:51)
[2021-11-15] MEDS: carvediloL 6.25 MG TABLET PO ×2 (08:51→19:52)
[2021-11-15] MEDS: GABAPENTIN 100 MG CAPSULE PO ×3 (08:51→16:34)
[2021-11-15] MEDS: LOSARTAN POTASSIUM 25 MG TABLET PO (08:51)
[2021-11-15] MEDS: guaiFENesin 12 HR 600 MG TABCR PO ×2 (08:51→19:52)
[2021-11-15] MEDS: metOLazone 2.5 MG TABLET PO (08:51)
[2021-11-15] MEDS: FUROSEMIDE 40 MG TABLET PO ×2 (08:51→16:34)
[2021-11-15] MEDS: PANTOPRAZOLE 40 MG TABLET PO (08:51)
[2021-11-15] MEDS: buPROPion HCL XL (24 HR) 150 MG TABCR 300 MG PO (08:52)
[2021-11-15 11:33] LABS: Glucose Point of Care 324 mg/dl (65-105)
[2021-11-15] MEDS: INSULIN ASPART (*BKC) 100 UNITS/ML SUB-Q ×2 (12:04→16:40)
--- NOTE | 2021-11-15 13:22 | PM.IMPN ---
Progress Note: A&P Assessment and Plan (1) Sepsis: Qualifiers: Sepsis acute organ dysfunction status: unspecified Sepsis type: sepsis due to unspecified organism Qualified Code(s): A41.9 - Sepsis, unspecified organism Code(s): A41.9 - Sepsis, unspecified organism Status: Acute Assessment and Plan: Patient meets sepsis criteria with low-grade fever, leukocytosis with bandemia, and lactic acidosis in the setting of cellulitis and COVID. Fever resolved. Clinically improving. WBC and CRP dropping. Blood cultures no growth to date. Sputum Cx negative. Continue abx. Continue current treatment for COVID. (2) Cellulitis of left lower extremity: Code(s): L03.116 - Cellulitis of left lower limb Status: Acute Assessment and Plan: As above. LE venous doppler negative for DVT. He was started on imipenem and vancomycin per antibiotic stewardship recommendations. WBC trending downward. No fevers. Follow. (3) COVID-19: Code(s): U07.1 - COVID-19 Status: Acute Assessment and Plan: Patient tested positive for COVID on admission. LDH 681, CRP 15. Chest CTA shows no PE but infiltrates consistent with COVID-19. Given the mildly increasing oxygen requirement, he has been started on dexamethasone and remdesivir. He has been started on scheduled bronchodilators and Cornet valve. Mucinex have been added to help mobilize secretions. LDH and CRP better. CXR showing atelectasis only. O2 requirement down to 3.5L and probably could be decreased to 3L. Isolation per protocol. Finish Remdesivir tomorrow. (4) Chronic obstructive pulmonary disease: Code(s): J44.9 - Chronic obstructive pulmonary disease, unspecified Status: Acute Assessment and Plan: No further wheezing. Continue steroids and neb treatments. Continue to monitor (5) Chronic respiratory failure with hypoxia and hypercapnia: Code(s): J96.11 - Chronic respiratory failure with hypoxia; J96.12 - Chronic respiratory failure with hypercapnia Status: Acute Assessment and Plan: Patient on 3L chronically. He is currently 3.5L. Wean O2 as tolerated to baseline. (6) Congestive heart failure: Code(s): I50.9 - Heart failure, unspecified Status: Chronic Assessment and Plan: Clinically compensated. Continue diuretics and monitor volume status closely.? (7) Type 2 diabetes mellitus: Code(s): E11.9 - Type 2 diabetes mellitus without complications Status: Acute Assessment and Plan: A1c 6.6. The patient's blood glucose was reviewed on 11/15 Glucose elevated related to the steroids. Continue AccuCheks covering with sliding scale. Hypoglycemia protocol available as needed. Continue to monitor. (8) Hypertension: Qualifiers: Hypertension type: primary hypertension Qualified Code(s): I10 - Essential (primary) hypertension Code(s): I10 - Essential (primary) hypertension Status: Chronic Assessment and Plan: Patient's blood pressure was reviewed on 11/15 Blood pressure remains well controlled. Will continue current medications. Plan DVT prophylaxis: Lovenox Code status: Full Diet: Diabetic Subjective Date/time seen: 11/15/21 13:22 Interval history: 46yo male with chronic respiratory failure (3L), COPD, CHF, DM and CKD here for SOB and found to have COVID. He is not vaccinated against COVID. Patient feels well today. Still having the back pain from sciatica. Cough is better. No chest pain. He is up walking the room. The leg pain from the cellulitis is much improved. Exam Narrative: AF 97.0 118/55 76 20 100% 3.5L Gen - NARD Chest - CTA bilaterally, nml RR CV - RRR S1/S2. Tele showing no significant dysrhythmias Abd - Soft, obese, NT Ext - left lower extremity edema much improved. Minimal warmth to the left lower extremity. Purplish red patch to the left lower extremity from below the kne
[2021-11-15] MEDS: MORPHINE SULFATE (*CRX) 2 MG/ML INJ 1 MG IV PUSH (14:07)
[2021-11-15 16:38] LABS: Glucose Point of Care 292 mg/dl (65-105)
[2021-11-15] MEDS: traZODone HCL 50 MG TABLET PO (19:52)
[2021-11-15] MEDS: INSULIN ASPART (*BKC) 100 UNITS/ML 6 UNITS SUB-Q (21:08)
[2021-11-15] MEDS: REMDESIVIR 100 MG/NS 250 ML 100 MG/250 ML BAG 250 MG IVPB (21:14)
[2021-11-16] VITALS (17 sets, daily range): BP systolic 142–155; BP diastolic 64–83; PULSE 51–89; RESP 18–26; TEMP 36–36.6; O2SAT 94–100
[2021-11-16] MEDS: ALBUTEROL SULFATE NEB 2.5 MG/0.5 ML INH (00:20)
[2021-11-16] MEDS: IPRATROPIUM BR 0.02% INH SOLN 0.5 MG/2.5 ML VIAL INHALATION ×6 (00:20→19:50)
[2021-11-16 00:55] LABS: Glucose Point of Care 314 mg/dl (65-105)
[2021-11-16 00:55] LABS: Glucose Point of Care 368 mg/dl (65-105)
[2021-11-16] MEDS: ALBUTEROL SULFATE NEB 2.5 MG/3 ML INH INHALATION ×5 (03:59→19:50)
[2021-11-16 05:59] LABS: Basophils Percent Auto 0.2 % (0.2-1.2); Eosinophils Percent Auto 0.1 % (0-4.4); Hematocrit 39.7 % (42.0-52.0); Hemoglobin 12.9 g/dL (14.0-18.0); Immature Granulocyte Percent A 0.9 % (0-0.5); Lymphocytes Absolute Auto 2.14 K/mm3 (0.9-3.2); Lymphocytes Percent Auto 20.1 % (18.3-44.2); Mean Corpuscular HGB Conc 32.5 g/dl (32-36); Mean Corpuscular Hemoglobin 30.9 pg (26-34); Mean Corpuscular Volume 95.2 fl (80-100); Mean Platelet Volume 10.1 fl (7.4-10.4); Monocytes Absolute Auto 0.8 K/mm3 (0.1-0.6); Monocytes Percent Auto 7.2 % (2.6-8.5); Neutrophils Absolute Auto 7.6 K/mm3 (1.3-6.7); Neutrophils Percent Auto 71.5 % (45.5-73.1); Platelet Count Result 235 k/mm3 (150-375); Red Blood Count 4.17 M/mm3 (4.6-6.20); Red Cell Distribution Width 13.6 % (11.5-14.5); White Blood Count 10.7 K/mm3 (4.5-10.0)
[2021-11-16 06:05] LABS: INR 1.1; Prothrombin Time 13.5 Seconds (11.1-14.7)
[2021-11-16 06:12] LABS: Alanine Aminotransferase 30 U/L (6-50); Albumin Level 4.2 g/dL (3.5-5.1); Alkaline Phosphatase 71 U/L (38-126); Anion Gap 10 mmol/L (8-16); Aspartate Amino Transferase 27 U/L (17-59); Bilirubin,Total 0.3 mg/dL (0.2-1.3); Blood Urea Nitrogen 30 mg/dL (9-20); CRP 8.5 mg/dL (<1.0); Calcium 9.6 mg/dL (8.4-10.2); Carbon Dioxide 38 mmol/L (22-30); Chloride 83 mmol/L (98-107); Estimated CRCL calculation 140 ml/min; Estimated Glomerular Filt Rate > 60; Glucose 260 mg/dL (65-110); Lactate Dehydrogenase 544 U/L (313-618); Potassium 3.2 mmol/L (3.4-5.0); Sodium 131 mmol/L (137-145)
[2021-11-16 08:47] LABS: Glucose Point of Care 224 mg/dl (65-105)
[2021-11-16] MEDS: buPROPion HCL XL (24 HR) 150 MG TABCR 300 MG PO (09:11)
[2021-11-16] MEDS: metOLazone 2.5 MG TABLET PO (09:12)
[2021-11-16] MEDS: LOSARTAN POTASSIUM 25 MG TABLET PO (09:12)
[2021-11-16] MEDS: GABAPENTIN 100 MG CAPSULE PO ×3 (09:12→16:38)
[2021-11-16] MEDS: carvediloL 6.25 MG TABLET PO ×2 (09:12→20:53)
[2021-11-16] MEDS: DOXYCYCLINE HYCLATE 100 MG TABLET PO ×2 (09:12→20:53)
[2021-11-16] MEDS: guaiFENesin 12 HR 600 MG TABCR PO ×2 (09:12→20:54)
[2021-11-16] MEDS: POTASSIUM CHLORIDE 20 MEQ TABLET 40 MEQ PO (09:12)
[2021-11-16] MEDS: FUROSEMIDE 40 MG TABLET PO ×2 (09:12→16:38)
[2021-11-16] MEDS: ASPIRIN 81 MG ENTERIC TABLET PO (09:12)
[2021-11-16] MEDS: PANTOPRAZOLE 40 MG TABLET PO (09:12)
[2021-11-16] MEDS: ENOXAPARIN 40 MG/0.4 ML SYRINGE SUB-Q (09:13)
[2021-11-16] MEDS: INSULIN ASPART (*BKC) 100 UNITS/ML SUB-Q ×3 (09:18→16:39)
[2021-11-16] MEDS: INSULIN GLARGINE (*BKC) 100 UNITS/ML 20 UNITS SUB-Q (09:19)
--- NOTE | 2021-11-16 11:14 | PM.IMPN ---
Progress Note: A&P Assessment and Plan (1) Sepsis: Qualifiers: Sepsis acute organ dysfunction status: unspecified Sepsis type: sepsis due to unspecified organism Qualified Code(s): A41.9 - Sepsis, unspecified organism Code(s): A41.9 - Sepsis, unspecified organism Status: Acute Assessment and Plan: Patient meets sepsis criteria with low-grade fever, leukocytosis with bandemia, and lactic acidosis in the setting of cellulitis and COVID. Fever resolved. Clinically improving. WBC and CRP dropping. Blood cultures no growth to date. Sputum Cx negative. Continue abx. Continue current treatment for COVID. (2) COVID-19: Code(s): U07.1 - COVID-19 Status: Acute Assessment and Plan: Patient tested positive for COVID on admission. LDH 681, CRP 15. Chest CTA showed no PE but infiltrates consistent with COVID-19. Given the increasing oxygen requirement, he was started on dexamethasone and remdesivir. He was also started on scheduled bronchodilators and Cornet valve. Mucinex was added to help mobilize secretions. LDH and CRP levels trended down. Repeat CXR showing atelectasis only. O2 requirement down to 3.5L. Isolation per protocol. Finish Remdesivir today. Wean o2 as toelrated to baseline 3L. (3) Cellulitis of left lower extremity: Code(s): L03.116 - Cellulitis of left lower limb Status: Acute Assessment and Plan: As above. LE venous doppler negative for DVT. He was started on imipenem and vancomycin per antibiotic stewardship recommendations. WBC trending downward. No fevers. Abx changed to oral today. Continue to complete a course. Follow. (4) Chronic obstructive pulmonary disease: Code(s): J44.9 - Chronic obstructive pulmonary disease, unspecified Status: Acute Assessment and Plan: Minimal wheezing. Continue steroids and neb treatments. Continue to monitor. (5) Chronic respiratory failure with hypoxia and hypercapnia: Code(s): J96.11 - Chronic respiratory failure with hypoxia; J96.12 - Chronic respiratory failure with hypercapnia Status: Acute Assessment and Plan: Patient on 3L chronically. He remains on 3.5L. Wean O2 as tolerated to baseline. (6) Congestive heart failure: Code(s): I50.9 - Heart failure, unspecified Status: Chronic Assessment and Plan: Clinically compensated. Continue diuretics and monitor volume status closely.? (7) Type 2 diabetes mellitus: Code(s): E11.9 - Type 2 diabetes mellitus without complications Status: Acute Assessment and Plan: A1c 6.6. The patient's blood glucose was reviewed on 11/16 Glucose elevated related to the steroids. Continue AccuCheks covering with sliding scale. Hypoglycemia protocol available as needed. Continue to monitor. Add lantus this morning. (8) Hypertension: Qualifiers: Hypertension type: primary hypertension Qualified Code(s): I10 - Essential (primary) hypertension Code(s): I10 - Essential (primary) hypertension Status: Chronic Assessment and Plan: Patient's blood pressure was reviewed on 11/16 Blood pressure remains well controlled. Will continue current medications. Plan DVT prophylaxis: Lovenox Code status: Full Diet: Diabetic Subjective Date/time seen: 11/16/21 11:14 Interval history: 46yo male with chronic respiratory failure (3L), COPD, CHF, DM and CKD here for SOB and found to have COVID. He is not vaccinated against COVID. Complains of left knee pain. States he did have a fall on the left knee a few weeks ago but has been walking okay since. He points to just below the patella. No CP. SOB better. Leg pain improved. Exam Narrative: AF 98.0 142/73 79 24 96% 3.5L Gen - NARD Chest - few scattered faint wheezes otherwise clear. nml RR CV - RRR S1/S2 Abd - Soft, obese, NT Ext - left lower extremity edema mostly resolved. Fading red patch to the left l
[2021-11-16 12:02] LABS: Glucose Point of Care 308 mg/dl (65-105)
[2021-11-16] MEDS: oxyCODONE/ACETAMINOPHEN (*CRX) 5-325 MG TABLET 1 TABLET PO (12:25)
[2021-11-16 16:38] LABS: Glucose Point of Care 331 mg/dl (65-105)
[2021-11-16] MEDS: traZODone HCL 50 MG TABLET PO (20:54)
[2021-11-16] MEDS: REMDESIVIR 100 MG/NS 250 ML 100 MG/250 ML BAG 250 MG IVPB (20:55)
[2021-11-16 22:14] LABS: Glucose Point of Care 329 mg/dl (65-105)
[2021-11-17 00:10] VITALS: PULSE 76; RESP 22
[2021-11-17] MEDS: ALBUTEROL SULFATE NEB 2.5 MG/3 ML INH INHALATION ×2 (00:10→08:13)
[2021-11-17] MEDS: IPRATROPIUM BR 0.02% INH SOLN 0.5 MG/2.5 ML VIAL INHALATION ×2 (00:10→08:14)
[2021-11-17 04:40] VITALS: BP 126/68; PULSE 73; RESP 20; TEMP 36; O2SAT 100
[2021-11-17 08:14] VITALS: PULSE 79; RESP 18
--- NOTE | 2021-11-17 08:30 | PM.DS ---
DS: Admitting Diagnosis Discharge Date 11/17/21 Admitting Diagnosis Shortness of breath DS: Discharge Diagnosis Discharge Diagnosis (1) Sepsis: Qualifiers: Sepsis acute organ dysfunction status: unspecified Sepsis type: sepsis due to unspecified organism Qualified Code(s): A41.9 - Sepsis, unspecified organism Code(s): A41.9 - Sepsis, unspecified organism Status: Acute (2) COVID-19: Code(s): U07.1 - COVID-19 Status: Acute (3) Cellulitis of left lower extremity: Code(s): L03.116 - Cellulitis of left lower limb Status: Acute (4) Chronic obstructive pulmonary disease: Code(s): J44.9 - Chronic obstructive pulmonary disease, unspecified Status: Acute (5) Chronic respiratory failure with hypoxia and hypercapnia: Code(s): J96.11 - Chronic respiratory failure with hypoxia; J96.12 - Chronic respiratory failure with hypercapnia Status: Acute (6) Congestive heart failure: Code(s): I50.9 - Heart failure, unspecified Status: Chronic (7) Type 2 diabetes mellitus: Code(s): E11.9 - Type 2 diabetes mellitus without complications Status: Acute (8) Hypertension: Qualifiers: Hypertension type: primary hypertension Qualified Code(s): I10 - Essential (primary) hypertension Code(s): I10 - Essential (primary) hypertension Status: Chronic DS: Summary Hospital Course Reason for hospitalization: 46yo male with chronic respiratory failure (3L), COPD, CHF, DM and CKD here for SOB and found to have COVID. He is not vaccinated against COVID. Please see H&P for details. Hospital Course: Patient met sepsis criteria with low-grade fever, leukocytosis with bandemia, and lactic acidosis in the setting of cellulitis and COVID. He was started on treatment for COVID and cellulitis. Fever resolved. Clinically improved. WBC dropped to close to normal. CRP trended down. Blood cultures no growth to date. Sputum Cx negative. Patient tested positive for COVID on admission. LDH 681, CRP 37. Chest CTA showed no PE but infiltrates consistent with COVID-19. Given the increasing oxygen requirement, he was started on dexamethasone and remdesivir. He was also started on scheduled bronchodilators and Cornet valve. Isolation per protocol. Mucinex was added to help mobilize secretions. LDH and CRP levels trended down. Repeat CXR showing atelectasis only. He returned to his baseline O2 requirement. He completed a 5 day course of Remdesivir and Dexamethasone. Clinically improved and the steroids were causing significant hyperglycemia so plan to stop Dexamethasone at discharge. Patient had left LE cellulitis by exam. LE venous doppler negative for DVT. He was started on imipenem and vancomycin per antibiotic stewardship recommendations. WBC trended to normal. No fevers. Abx changed to oral to complete a course. Patient overall did well to be discharged home on 11/17/2021. Status at Discharge Cognitive/behavioral status at discharge: Stable Time Spent with Patient Time attestation: Total time spent providing and/or coordinating discharge services:35 minutes Time spent: Greater than 30 minutes Exam Narrative: AF 96.8 126/68 79 18 100% 3L Gen - NARD Chest - CTA bilaterally, nml RR CV - RRR S1/S2 Abd - Soft, obese, NT Ext - minimal left lower extremity edema. Fading red patch to the left lower extremity from below the knee to above the ankle. Psych - Nml mood and affect Skin - Warm and dry DS: Data Data Completed and Pending Labs on day of discharge: Labs from last 24 hours 11/16/21 11/16/21 11/16/21 20:48 16:31 11:55 POC Capillary Glucose 329 H 331 H 308 H 11/16/21 08:34 POC Capillary Glucose 224 H Preliminary micro results at discharge 11/12/21 14:18 Blood Culture - Preliminary Blood 11/12/21 14:43 Blood Culture - Preliminary Blood Discharge Plan Discharge Attending physician on dis
[2021-11-17 08:31] LABS: Glucose Point of Care 188 mg/dl (65-105)
[2021-11-17] MEDS: LOSARTAN POTASSIUM 25 MG TABLET PO (08:55)
[2021-11-17] MEDS: ASPIRIN 81 MG ENTERIC TABLET PO (08:55)
[2021-11-17] MEDS: FUROSEMIDE 40 MG TABLET PO (08:55)
[2021-11-17] MEDS: DOXYCYCLINE HYCLATE 100 MG TABLET PO (08:55)
[2021-11-17] MEDS: guaiFENesin 12 HR 600 MG TABCR PO (08:55)
[2021-11-17] MEDS: PANTOPRAZOLE 40 MG TABLET PO (08:55)
[2021-11-17] MEDS: GABAPENTIN 100 MG CAPSULE PO (08:55)
[2021-11-17] MEDS: buPROPion HCL XL (24 HR) 150 MG TABCR 300 MG PO (08:55)
[2021-11-17] MEDS: INSULIN GLARGINE (*BKC) 100 UNITS/ML 20 UNITS SUB-Q (08:56)
[2021-11-17] MEDS: carvediloL 6.25 MG TABLET PO (08:56)
[2021-11-17] MEDS: ENOXAPARIN 40 MG/0.4 ML SYRINGE SUB-Q (08:56)
[2021-11-17] MEDS: metOLazone 2.5 MG TABLET PO (08:57)
== END 2021-11-17 12:10 | disposition home or self-care (01) | DRG 720 ==
LOC: ANHED 18:37 → ANH2MED 19:06
PROVIDERS: Family Medicine; Physician Assistant; Admitting Provider Internal Medicine; Emergency Provider Emergency Medicine; PCP Physician Assistant; Visit Provider Internal Medicine
DX: A41.89 Other specified sepsis (principal); U07.1 COVID-19; L03.116 Cellulitis of left lower limb; J96.11 Chronic respiratory failure with hypoxia; J96.12 Chronic respiratory failure with hypercapnia; E11.628 Type 2 diabetes mellitus with other skin complications; J44.9 Chronic obstructive pulmonary disease, unspecified; I11.0 Hypertensive heart disease with heart failure; I50.9 Heart failure, unspecified; E66.2 Morbid (severe) obesity with alveolar hypoventilation; K21.9 Gastro-esophageal reflux disease without esophagitis; F41.9 Anxiety disorder, unspecified; F32.A Depression, unspecified; Z99.81 Dependence on supplemental oxygen; Z28.310 Unvaccinated for COVID-19; Z87.891 Personal history of nicotine dependence; Z68.43 Body mass index [BMI] 50.0-59.9, adult
CPT/HCPCS: 36415; 71045; 71275; 80048; 80053; 80069; 80202; 82728; 82948; 83036; 83605; 83615; 83735; 83880; 84450; 84460; 84484; 85025; 85027; 85610; 85730; 86140; 87040; 87070; 87205; 93005; 93971; 94002; 94003; 94640; 94667; 94668; 96365; 96366; 96367; 96375; 99285; A9270; C9803; G0378; G0379; J0131; J0248; J0743; J1100; J1650; J1815; J2270; J2405; J3370; J3475; J7030; Q9967; U0003; U0005

== ENCOUNTER 2022-11-11 19:12 | Emergency (ER) | payer BC, SELFPAY ==
--- NOTE | 2022-11-11 20:00 | PC.NURSE ---
PT CALLED X3 FOR TRIAGE AND DID NOT ANSWER.
== END 2022-11-11 19:45 | disposition left against medical advice (07) ==
PROVIDERS: PCP Physician Assistant
DX: Z53.21 Procedure and treatment not carried out due to patient leaving prior to being seen by health care provider (principal)
CPT/HCPCS: 99199

== ENCOUNTER 2023-01-03 09:51 | Emergency (ER) | payer BC, SELFPAY ==
--- NOTE | ~2023-01-03 | CT_ITS ---
EXAMINATION: CT abdomen pelvis w con DATE: 01/03/2023 10:58 INDICATION: Bilateral flank pain and nausea TECHNIQUE: Computed tomography (CT) of the abdomen and pelvis was performed with 100 mL Omnipaque-350 intravenous contrast. Automated exposure control and iterative reconstruction technique were employe d. The dose-length product was 1566.60 mGy-cm. COMPARISON: 07/05/2021 FINDINGS: Visualized lower lungs are clear. Heart size is normal. No pericardial or pleural effusion. Bilateral gynecomastia. Diffuse hepatic steatosis with small more focal sparing along the gallbladder fossa. 3 small calcified gallstones near the neck of the normal-appearing gallbladder. Spleen, pancreas, bila teral adrenal glands and left kidney are normal. 1.3 similar cyst at the upper pole of the right kidn ey. Bowels including the appendix are normal. Small fat-containing umbilical hernia. Mild bladder wal l thickening with subtle haziness to the surrounding fat suspicious for cystitis No free intraperiton eal gas or fluid. No pathologically enlarged abdominal or pelvic lymphadenopathy. Mild degenerative s keletal changes in the spine and both hips. IMPRESSION: 1. Mild bladder wall thickening with subtle haziness to the surrounding fat suspicious for cystitis. Correlate with urinalysis. When 2. Cholelithiasis. 3. Diffuse hepatic steatosis. Reviewed, dictated and finalized at location A. IMPRESSION: 1. Mild bladder wall thickening with subtle haziness to the surrounding fat misa picious for cystitis. Correlate with urinalysis. When 2. Cholelithiasis. 3. Diffuse hepatic steatosis.
--- NOTE | ~2023-01-03 | XR_ITS ---
Clinical Indication: Cough AP and lateral views of the chest: Comparison: 11/15/2021 Findings: The lungs are clear, without evidence of focal consolidation or pleural effusion. Cardiome diastinal silhouette is within normal limits. Bones and soft tissues are unremarkable. Impression: Normal chest. Reviewed, dictated and finalized at location . Impression: Normal chest.
--- NOTE | 2023-01-03 09:57 | ECG_ITS ---
Measurements Intervals [place] Rate: 76 P: 23 [place]: 169 QRS: 10 QRSD: 108 T: 43 QT: 356 QTc: 402 Interpretive Statements SINUS RHYTHM VOLTAGE CRITERIA FOR LVH BORDERLINE ECG COMPARED TO ECG 11/12/2021 14:05:48 SINUS RHYTHM NOW PRESENT Electronically Signed On 01-03-2023 10:10:05 CDT by César Swanson D.O.
[2023-01-03 09:59] VITALS: BP 156/87; PULSE 82; RESP 18; TEMP 36.7; O2SAT 95
[2023-01-03 10:11] LABS: Basophils Percent Auto 0.5 % (0.2-1.2); Eosinophils Absolute Auto 0.3 K/mm3 (0-0.3); Eosinophils Percent Auto 3.5 % (0-4.4); Hematocrit 36.4 % (42.0-52.0); Hemoglobin 11.8 g/dL (14.0-18.0); Immature Granulocyte Absolute 0.03 K/mm3 (0.00-0.031); Immature Granulocyte Percent A 0.4 % (0-0.5); Lymphocytes Percent Auto 19.6 % (18.3-44.2); Mean Corpuscular HGB Conc 32.4 g/dl (32-36); Mean Corpuscular Hemoglobin 29.6 pg (26-34); Mean Corpuscular Volume 91.2 fl (80-100); Mean Platelet Volume 9.1 fl (7.4-10.4); Monocytes Absolute Auto 0.5 K/mm3 (0.1-0.6); Monocytes Percent Auto 5.9 % (2.6-8.5); Neutrophils Absolute Auto 5.7 K/mm3 (1.3-6.7); Neutrophils Percent Auto 70.1 % (45.5-73.1); Platelet Count Result 182 k/mm3 (150-375); Red Blood Count 3.99 M/mm3 (4.6-6.20); Red Cell Distribution Width 12.3 % (11.5-14.5); White Blood Count 8.2 K/mm3 (4.5-10.0)
[2023-01-03 10:22] LABS: Alanine Aminotransferase 42 U/L (6-50); Albumin Level 3.8 g/dL (3.5-5.1); Alkaline Phosphatase 84 U/L (38-126); Anion Gap 8 mmol/L (8-16); Aspartate Amino Transferase 35 U/L (17-59); Bilirubin,Total 0.3 mg/dL (0.2-1.3); Blood Urea Nitrogen 14 mg/dL (9-20); Calcium 8.9 mg/dL (8.4-10.2); Carbon Dioxide 26 mmol/L (22-30); Chloride 102 mmol/L (98-107); Estimated CRCL calculation 167 ml/min; Estimated Glomerular Filt Rate > 60; Glucose 199 mg/dL (65-110); Lactic Acid Reflex 1.7 mmol/L (0.7-2.0); Potassium 4.2 mmol/L (3.4-5.0); Sodium 136 mmol/L (137-145)
[2023-01-03 10:33] LABS: Appearance Urine Cloudy (Clear); Bacteria Urine Rare /hpf; Bilirubin Urine Negative (Negative); Blood Urine 1+ (Negative); Color Urine Yellow (Yellow); Glucose Urine UA Negative (Negative); Ketones Urine Negative (Negative); Leukocyte Esterase Ur 3+ LEU/UL (Negative); Nitrate Urine Negative (Negative); Non Pathogenic Casts 0-2; Protein Urine Trace mg/dL (Negative); Specific Grav Ur 1.015 (1.001-1.035); Squamous Epithelial Cell Urine None seen /hpf (Few); Urobilinogen Urine 0.2 mg/dL (<2.0); WBC Urine >100 /hpf
--- NOTE | 2023-01-03 10:34 | PC.NURSE ---
c/o HEMPHILL tylenol ordered per ERP
[2023-01-03 10:35] VITALS: BP 131/85; PULSE 73; RESP 18; O2SAT 95
[2023-01-03 10:37] LABS: Add Urine Microscopic? YES
[2023-01-03] MEDS: ACETAMINOPHEN 500 MG TABLET 1000 MG PO (10:39)
[2023-01-03] MEDS: FAMOTIDINE 20 MG/2 ML VIAL IV PUSH (10:40)
[2023-01-03] MEDS: ONDANSETRON INJ 4 MG/2 ML VIAL IV PUSH (10:40)
--- NOTE | 2023-01-03 10:59 | ED.GENADULT ---
HPI - General Adult General Chief complaint: Abdominal Pain Stated complaint: abd pain Time Seen by Provider: 01/03/23 09:55 History of Present Illness HPI narrative: Jerzy Leahy is a 47 y/o male who presents today with reports of bilateral kidney pain and painful urination for two days. He reports he has felt warm but does not know if he has had a fever. He reports that he has a chronic cough after quitting smoking and has COPD. He states that he usually gets a coughing fit every morning and causes him to vomit a little. He has been able to keep fluids and food down the past few days without difficulty. He also reports of lower abdominal pain that is worse with coughing. Denies chest pain/ shortness of breath. Related Data Home Medications Medication Instructions Recorded Confirmed carvedilol 6.25 mg tablet 6.25 mg PO Q12H 10/18/20 11/12/21 albuterol sulfate 1.25 mg/3 mL 2.5 mg inhalation Q4H PRN 04/13/21 11/12/21 solution for nebulization Shortness Of Breath aspirin 81 mg tablet 81 mg PO DAILY 04/13/21 11/12/21 bupropion HCl 300 mg 24 hr tablet, 300 mg PO QAM 04/13/21 11/12/21 extended release gabapentin 100 mg capsule 100 mg PO TID 04/13/21 11/12/21 losartan 25 mg tablet 25 mg PO DAILY 04/13/21 11/12/21 metformin 500 mg tablet 500 mg PO TID 09/16/21 11/12/21 nystatin 100,000 unit/gram topical 1 applic topical Q12HR PRN Skin 09/16/21 11/12/21 powder Irritation oxycodone-acetaminophen 5 mg-325 1 tablet PO Q4H PRN Pain 11/12/21 11/12/21 mg tablet (Percocet) trazodone 50 mg tablet 50 mg PO HS 11/12/21 11/12/21 Allergies Allergy/AdvReac Type Severity Reaction Status Date / Time Penicillins Allergy Mild Unknown Verified 11/12/21 20:34 Review of Systems Review of Systems: CONSTITUTIONAL: Denies fever, chills, or sweats. EYES: Denies visual changes, redness, or discharge. ENT: Denies rhinorrhea, congestion, sore throat, or otalgia. CARDIOVASCULAR: Denies chest pain, palpitations, or edema. RESPIRATORY: Denies cough or dyspnea. GASTROINTESTINAL:reports lower abdominal pain with coughing, he reports of some nausea but no active vomiting. GENITOURINARY: Reports dysuria for 2 days with bilateral flank pain SKIN: Denies rash or itching. MUSCULOSKELETAL: Denies back pain, joint pain, or myalgia. NEUROLOGIC: Denies headache, numbness, dizziness, or weakness. PSYCHIATRIC: Denies anxiety or depression. [facility] Past Medical History Medical History (Updated 01/03/23 @ 13:22 by Humera Pérez APRN) Anxiety and depression Chronic obstructive pulmonary disease Chronic respiratory failure with hypoxia and hypercapnia He is on continuous oxygen during the day and uses a trilogy unit at nighttime. Gastroesophageal reflux disease Heart failure, type unknown Hypertension Obesity hypoventilation syndrome Obstructive sleep apnea Tobacco abuse Type 2 diabetes mellitus Surgical History Surgical History (Updated 11/12/21 @ 19:59 by Angela Manning PA-C) History of cardiac catheterization No intervention. History of hernia repair History of tonsillectomy Family History Family History Father Diabetes mellitus Other Acute myocardial infarction Social History Social History (Updated 11/12/21 @ 21:58 by Angela Manning PA-C) Social History: Patient is and lives with his and children and [place]. He smoked about a pack of cigarettes a day for 32 years and quit in January 2021. He drinks alcohol rarely and in moderation. Occasional marijuana use, typically in the form of edibles. He designates his , Candie Leahy, as his surrogate decision maker and he wishes to be a full code. Spiritual care concerns: No Exam Narrative: GENERAL: Well-appearing, well-nourished, and in no acute distress. HEAD: Normocephalic, atraumatic. EYES: PERRLA and EOMI. ENT: Nares clear, no rhinorrhea or epistaxis. Mucous membranes moist. Or
[2023-01-03 11:15] LABS: Lipase 84 U/L (23-300)
[2023-01-03 11:27] VITALS: BP 146/90; PULSE 93; RESP 20; TEMP 36.8; O2SAT 95
[2023-01-03 11:27] LABS: NT Pro B Type Natriuretic Pept 49 pg/mL (19.9-100); Troponin I < 0.012 ng/mL (0.000-0.034)
[2023-01-03] MEDS: PHENAZOPYRIDINE HCL 100 MG TABLET 200 MG PO (13:02)
[2023-01-03] MEDS: SULFAMETHOXAZOLE/TRIMETHOPRIM 800/160 MG DS TABLET 1 TAB PO (13:02)
== END 2023-01-03 13:42 | disposition home or self-care (01) ==
PROVIDERS: Emergency Medicine; Emergency Provider Nurse Practitioner Family; PCP Physician Assistant
DX: N39.0 Urinary tract infection, site not specified (principal); J44.9 Chronic obstructive pulmonary disease, unspecified; J96.11 Chronic respiratory failure with hypoxia; J96.12 Chronic respiratory failure with hypercapnia; E11.9 Type 2 diabetes mellitus without complications; I11.0 Hypertensive heart disease with heart failure; I50.9 Heart failure, unspecified; K21.9 Gastro-esophageal reflux disease without esophagitis; E66.2 Morbid (severe) obesity with alveolar hypoventilation; Z68.43 Body mass index [BMI] 50.0-59.9, adult; F41.9 Anxiety disorder, unspecified; F32.A Depression, unspecified; Z87.891 Personal history of nicotine dependence; Z79.82 Long term (current) use of aspirin; Z79.84 Long term (current) use of oral hypoglycemic drugs; K80.20 Calculus of gallbladder without cholecystitis without obstruction; K76.0 Fatty (change of) liver, not elsewhere classified; R94.31 Abnormal electrocardiogram [ECG] [EKG]
CPT/HCPCS: 36415; 71046; 74177; 80053; 81001; 82248; 83605; 83690; 83880; 84484; 85025; 87077; 87086; 87186; 93005; 96374; 96375; 99284; A9270; J2405; Q9967

== ENCOUNTER 2023-06-19 18:53 | Emergency (ER) | payer BC, SELFPAY ==
[2023-06-19] VITALS (16 sets, daily range): BP systolic 142–175; BP diastolic 81–158; PULSE 97–113; RESP 16–33; TEMP 36.7; O2SAT 93–98
--- NOTE | ~2023-06-19 | CT_ITS ---
EXAMINATION: CTA chest PE abdomen pel DATE: 06/19/2023 23:01 INDICATION: sob, elevated dimer, abd pain, vomiting TECHNIQUE: Computed tomography angiography (CTA) of the chest was performed with 100 mL Omnipaque-350 intravenous contrast timed to evaluate the pulmonary arteries, followed by portal venous phase imagi ng of the abdomen and pelvis. Coronal maximum intensity projection 3D-reconstructions were created by the technologist. The dose-length product (DLP) was 3659.13 mGy-cm. Automated exposure control and i terative reconstruction technique were employed. COMPARISON: CT abdomen pelvis 01/03/2023; CTPA 11/12/2021. FINDINGS: CHEST: Lung parenchyma and airways: Mild patchy areas of groundglass opacity bilaterally. No focal consolida tion. Pleura: Unremarkable. Thoracic inlet, axillae and chest wall: No thyroid mass. Symmetric bilateral gynecomastia. Thoracic aorta: No significant dilation. No dissection. Mediastinum: Normal. Heart and pericardium: Cardiomegaly. Coronary artery calcifications: Mild. Thoracic bones: No acute osseous finding. Pulmonary arteries: Study quality: Limited by body habitus, beam hardening, and quantum mottle such t hat subsegmental pulmonary arteries are not well evaluated. No central or segmental pulmonary emboli detected. ABDOMEN/PELVIS: Liver: Enlarged. Diffuse fatty infiltration Biliary/Gallbladder: Distended gallbladder with gallstones, no inflammatory changes. No bile duct dil ation. Pancreas: No mass or duct dilation. Spleen: Normal. Adrenals:No mass. Kidneys: No suspicious mass, obstructing stone, or hydronephrosis. Bilateral subcentimeter hypodensit ies that likely represent cysts. GI tract: No small or large bowel dilation. Normal appendix. Mesentery/Peritoneum: No ascites, mass, or free air. Retroperitoneum: No mass. Pelvis: Pelvic organs are within normal limits. Soft Tissues: Small fat-containing uncomplicated umbilical hernia. Enlarged bilateral inguinal and le ft external iliac chain lymph nodes. Scrotal skin thickening and edema. Abdominopelvic bones: No acute osseous finding. IMPRESSION: No CT evidence of central or segmental acute pulmonary embolus. Mild patchy groundglass pulmonary opacities may represent mild edema edema. Infection is not excluded . Hepatomegaly with steatosis. Gallbladder hydrops with cholelithiasis. No CT evidence of cholecystitis. Correlate with symptoms of right upper quadrant pain and biliary labs. Bilateral inguinal and left external iliac chain lymphadenopathy. Scrotal skin thickening and edema. No definite abscess detected. Reviewed, dictated and finalized at location K. T RECORDER IMPRESSION: No CT evidence of central or segmental acute pulmonary embolus. Mild patchy groundglass pulmonary opacities may represent mild edema edema. Inf ection is not excluded. Hepatomegaly with steatosis. Gallbladder hydrops with cholelithiasis. No CT evidence of cholecystitis. Corre late with symptoms of right upper quadrant pain and biliary labs. Bilateral inguinal and left external iliac chain lymphadenopathy. Scrotal skin thickening and edema. No definite abscess detected.
--- NOTE | ~2023-06-19 | XR_ITS ---
EXAMINATION: XR chest 2V Exam Date/Time: 06/19/2023 20:05 [employer] HISTORY: SOB, chest tightness Comparison: 01/03/2023, 11/15/2021, 11/12/2021; CTPA 8 11/12/2021. RESULT: Lines, tubes, and devices: None. Lungs and pleura: Clear. Cardiomediastinal silhouette: Stable. Other: No acute osseous or upper abdominal finding. IMPRESSION: No acute cardiopulmonary process. Reviewed, dictated and finalized at location K. L LAWYER
--- NOTE | 2023-06-19 19:48 | ECG_ITS ---
Measurements Intervals [place] Rate: 92 P: 66 [place]: 193 QRS: 9 QRSD: 104 T: 58 QT: 322 QTc: 398 Interpretive Statements SINUS RHYTHM DELAYED PRECORDIAL R/S TRANSITION LEFT VENTRICULAR HYPERTROPHY WITH ST-T CHANGE BASELINE ARTIFACT- I, II, III, AVR, AVL, AVF BORDERLINE ECG COMPARED TO ECG 01/03/2023 10:06:54 NO SIGNIFICANT CHANGES Electronically Signed On 06-19-2023 20:46:23 [employer]E WEIGHER by César Swanson D.O.
[2023-06-19 20:15] LABS: Basophils Absolute Auto 0.1 K/mm3 (0.0-0.1); Basophils Percent Auto 0.5 % (0.2-1.2); Eosinophils Absolute Auto 0.3 K/mm3 (0-0.3); Eosinophils Percent Auto 2.4 % (0-4.4); Hematocrit 39.7 % (42.0-52.0); Hemoglobin 12.6 g/dL (14.0-18.0); Immature Granulocyte Absolute 0.04 K/mm3 (0.00-0.031); Immature Granulocyte Percent A 0.4 % (0-0.5); Lymphocytes Absolute Auto 2.11 K/mm3 (0.9-3.2); Lymphocytes Percent Auto 20.6 % (18.3-44.2); Mean Corpuscular HGB Conc 31.7 g/dl (32-36); Mean Corpuscular Hemoglobin 28.4 pg (26-34); Mean Corpuscular Volume 89.4 fl (80-100); Mean Platelet Volume 9.9 fl (7.4-10.4); Monocytes Absolute Auto 0.6 K/mm3 (0.1-0.6); Neutrophils Absolute Auto 7.2 K/mm3 (1.3-6.7); Neutrophils Percent Auto 70.1 % (45.5-73.1); Platelet Count Result 187 k/mm3 (150-375); Red Blood Count 4.44 M/mm3 (4.6-6.20); White Blood Count 10.2 K/mm3 (4.5-10.0)
[2023-06-19 20:27] LABS: Alanine Aminotransferase 65 U/L (6-50); Albumin Level 4.4 g/dL (3.5-5.1); Alkaline Phosphatase 134 U/L (38-126); Anion Gap 12 mmol/L (8-16); Aspartate Amino Transferase 56 U/L (17-59); Bilirubin,Total 0.7 mg/dL (0.2-1.3); Blood Urea Nitrogen 12 mg/dL (9-20); Carbon Dioxide 28 mmol/L (22-30); Chloride 95 mmol/L (98-107); Estimated CRCL calculation 170 ml/min; Estimated Glomerular Filt Rate > 60; Glucose 349 mg/dL (65-110); Potassium 3.8 mmol/L (3.4-5.0); Sodium 135 mmol/L (137-145)
--- NOTE | 2023-06-19 21:40 | ED.GENADULT ---
HPI - General Adult General Chief complaint: Unspecified Stated complaint: boils, asthma Time Seen by Provider: 06/19/23 21:20 Source: patient Mode of arrival: ambulatory Limitations: no limitations History of Present Illness HPI narrative: This is a 48 year old male that presents to the ER for scrotal wounds. Reports weeping wounds to the scrotum worsening over the last couple of days. Also reports shortness of breath ongoing since yesterday. Reports history of COPD. Reports a cough that is chronic due to his COPD. He has been using his inhaler with little relief. Reports some nausea and vomiting. Denies fevers, abdominal pain or chest pain. Related Data Home Medications Medication Instructions Recorded Confirmed carvedilol 6.25 mg tablet 6.25 mg PO Q12H 10/18/20 11/12/21 albuterol sulfate 1.25 mg/3 mL 2.5 mg inhalation Q4H PRN 04/13/21 11/12/21 solution for nebulization Shortness Of Breath aspirin 81 mg tablet 81 mg PO DAILY 04/13/21 11/12/21 bupropion HCl 300 mg 24 hr tablet, 300 mg PO QAM 04/13/21 11/12/21 extended release gabapentin 100 mg capsule 100 mg PO TID 04/13/21 11/12/21 losartan 25 mg tablet 25 mg PO DAILY 04/13/21 11/12/21 metformin 500 mg tablet 500 mg PO TID 09/16/21 11/12/21 nystatin 100,000 unit/gram topical 1 applic topical Q12HR PRN Skin 09/16/21 11/12/21 powder Irritation oxycodone-acetaminophen 5 mg-325 1 tablet PO Q4H PRN Pain 11/12/21 11/12/21 mg tablet (Percocet) trazodone 50 mg tablet 50 mg PO HS 11/12/21 11/12/21 Allergies Allergy/AdvReac Type Severity Reaction Status Date / Time Penicillins Allergy Mild Unknown Verified 06/19/23 18:53 Review of Systems Review of Systems: CONSTITUTIONAL: Denies fever CARDIOVASCULAR: Denies chest pain RESPIRATORY: Reports cough and dyspnea. GASTROINTESTINAL: Reports nausea and vomiting. Denies abdominal pain GENITOURINARY: Denies dysuria SKIN: Reports redness All systems reviewed & are unremarkable except as noted in HPI and below [facility] Past Medical History Medical History (Updated 06/20/23 @ 01:24 by Cristine Owens PA-C) Anxiety and depression Chronic obstructive pulmonary disease Chronic respiratory failure with hypoxia and hypercapnia He is on continuous oxygen during the day and uses a trilogy unit at nighttime. Gastroesophageal reflux disease Heart failure, type unknown Hypertension Obesity hypoventilation syndrome Obstructive sleep apnea Tobacco abuse Type 2 diabetes mellitus Surgical History Surgical History (Updated 11/12/21 @ 19:59 by Angela Manning PA-C) History of cardiac catheterization No intervention. History of hernia repair History of tonsillectomy Family History Family History Father Diabetes mellitus Other Acute myocardial infarction Social History Social History (Updated 11/12/21 @ 21:58 by Angela Manning PA-C) Social History: Patient is and lives with his and children and [place]. He smoked about a pack of cigarettes a day for 32 years and quit in January 2021. He drinks alcohol rarely and in moderation. Occasional marijuana use, typically in the form of edibles. He designates his , Candie Leahy, as his surrogate decision maker and he wishes to be a full code. Spiritual care concerns: No Exam Narrative: GENERAL: Well-appearing, obese, and in no acute distress. HEAD: Normocephalic, atraumatic. EYES: EOMI. CHEST: No respiratory distress. Diffuse expiratory wheezing. No rales or rhonchi HEART: Regular rate and rhythm. No murmur heard. Normal peripheral pulses. ABDOMEN: Soft, nontender, nondistended, normal active bowel sounds. EXTREMITIES: Normal range of motion. No edema. SKIN: Warm, dry, no rash. NEURO: No focal deficits. Alert and oriented x3. PSYCH: Normal mood and affect MALE GENITAL: Scrotal erythema with skin breakdown, no focal area of fluctuance Course Course Emergency Course: Nahomy
[2023-06-19 21:54] LABS: CRP 4.5 mg/dL (<1.0)
[2023-06-19] MEDS: IPRATROPIUM 0.5 MG/ALBUTEROL SULFATE 2.5 MG AMPUL.NEB 3 ML INHALATION (21:57)
[2023-06-19 22:05] LABS: Base Excess ABG 2.7 mEq/l (+/-2.0); Carboxyhemoglobin 0.7 % THb (0-2.0); Fractional Inspired Oxygen 21 %; HCO3 ABG 26.7 mEq/l (22.0-26.0); Methemoglobin ABG 0.1 %THb (0-1.5); Oxygen Content ABG 17.3 %vol (16.0-22.0); Oxygen Saturation ABG 94.2 % (95.0-100.0); Oxyhemoglobin 92.3 % THb (90.0-100.0); PCO2 ABG 39.1 mmHg (35.0-45.0); PO2 ABG 66.9 mmHg (80.0-100.0); PO2 FiO2 Ratio Arterial Blood 3.19 %; Reduced Hemoglobin 6.9 %THb (0-5.0); Total Hemoglobin 13.3 g/dL (12.0-18.0); pH ABG 7.453 (7.350-7.450)
[2023-06-19 22:06] LABS: Device ROOM AIR; Modified Allen's Test Pass; Site Drawn RIGHT RADIAL
[2023-06-19 22:07] LABS: Prothrombin Time 13.6 Seconds (11.1-14.7)
[2023-06-19 22:08] LABS: Partial Thromboplastin Time 31.7 SECONDS (22.3-36.8)
[2023-06-19] MEDS: methylPREDNISolone SOD SUCC 125 MG VIAL IV PUSH (22:27)
[2023-06-19 22:32] LABS: D Dimer 0.52 ug/mL (<0.48); Lipase 80 U/L (23-300)
[2023-06-19] MEDS: SODIUM CHLORIDE 0.9% IV 1,000 ML 500 ML IV CONT (22:40)
[2023-06-19 22:50] LABS: Erythrocyte Sedimentation Rate 42 mm/hr (0-20)
[2023-06-20 00:15] VITALS: PULSE 98; RESP 13
[2023-06-20 00:32] VITALS: BP 164/95; PULSE 98; RESP 17; O2SAT 96
--- NOTE | 2023-06-20 00:33 | PC.NURSE ---
Patient states he does not want to get his IV antibiotics and would like to leave. When asked why the patient states I am on somebody else's schedule . EDP JAMILAH Owens notified.
[2023-06-20 00:48] VITALS: PULSE 90
[2023-06-20 01:02] LABS: Reflex Lactic Acid Yes or No Add Lactic
== END 2023-06-20 01:36 | disposition home or self-care (01) ==
PROVIDERS: Emergency Medicine; Emergency Provider Physician Assistant; PCP Emergency Medicine
DX: J44.1 Chronic obstructive pulmonary disease with (acute) exacerbation (principal); N49.2 Inflammatory disorders of scrotum; J96.11 Chronic respiratory failure with hypoxia; J96.12 Chronic respiratory failure with hypercapnia; I50.9 Heart failure, unspecified; I11.0 Hypertensive heart disease with heart failure; E11.9 Type 2 diabetes mellitus without complications; E66.2 Morbid (severe) obesity with alveolar hypoventilation; Z68.43 Body mass index [BMI] 50.0-59.9, adult; G47.33 Obstructive sleep apnea (adult) (pediatric); K21.9 Gastro-esophageal reflux disease without esophagitis; F41.9 Anxiety disorder, unspecified; F32.A Depression, unspecified; Z87.891 Personal history of nicotine dependence; R91.8 Other nonspecific abnormal finding of lung field; K76.0 Fatty (change of) liver, not elsewhere classified; I51.7 Cardiomegaly
CPT/HCPCS: 36415; 36600; 71046; 71275; 74177; 80053; 82375; 82805; 83050; 83605; 83690; 85025; 85380; 85610; 85652; 85730; 86140; 87040; 87077; 87181; 93005; 94640; 96361; 96374; 99284; J2930; J7030; Q9967

== ENCOUNTER 2023-06-22 13:59 | Emergency (ER) | payer BC, SELFPAY ==
[2023-06-22] VITALS (11 sets, daily range): BP systolic 167–176; BP diastolic 86–116; PULSE 100–113; RESP 13–27; TEMP 36.6; O2SAT 97–100
--- NOTE | 2023-06-22 15:37 | ED.GENADULT ---
HPI - General Adult General Chief complaint: Unspecified Stated complaint: +BLOOD CULTURES Time Seen by Provider: 06/22/23 15:37 Focused HPI: Jerzy is a 48-year-old male patient presenting to the ER today for blood culture- gram-positive cocci results. Patient was seen on June 18 for scrotal cellulitis/wounds to the scrotum/COPD exacerbation. Blood cultures were obtained at that time. Patient was notified by his primary care provider and sent to the emergency room. Patient is taking cefdinir, metronidazole, and prednisone. He reports that his symptoms are improved. GENERAL: Well-appearing, morbidly obese, and in no acute distress. HEAD: Normocephalic, atraumatic. CHEST: Inspiratory and expiratory wheezing. No respiratory distress. HEART: Regular rate and rhythm. NEURO: Alert and oriented x3. Patient screened in triage and initial orders placed. Additional care and disposition to be based upon diagnostic testing and treatment. Source: patient Mode of arrival: ambulatory Limitations: no limitations Related Data Home Medications Medication Instructions Recorded Confirmed carvedilol 6.25 mg tablet 6.25 mg PO Q12H 10/18/20 11/12/21 albuterol sulfate 1.25 mg/3 mL 2.5 mg inhalation Q4H PRN 04/13/21 11/12/21 solution for nebulization Shortness Of Breath aspirin 81 mg tablet 81 mg PO DAILY 04/13/21 11/12/21 bupropion HCl 300 mg 24 hr tablet, 300 mg PO QAM 04/13/21 11/12/21 extended release gabapentin 100 mg capsule 100 mg PO TID 04/13/21 11/12/21 losartan 25 mg tablet 25 mg PO DAILY 04/13/21 11/12/21 metformin 500 mg tablet 500 mg PO TID 09/16/21 11/12/21 nystatin 100,000 unit/gram topical 1 applic topical Q12HR PRN Skin 09/16/21 11/12/21 powder Irritation oxycodone-acetaminophen 5 mg-325 1 tablet PO Q4H PRN Pain 11/12/21 11/12/21 mg tablet (Percocet) trazodone 50 mg tablet 50 mg PO HS 11/12/21 11/12/21 Allergies Allergy/AdvReac Type Severity Reaction Status Date / Time Penicillins Allergy Mild Unknown Verified 06/22/23 16:53 [facility] Past Medical History Medical History Anxiety and depression Chronic obstructive pulmonary disease Chronic respiratory failure with hypoxia and hypercapnia He is on continuous oxygen during the day and uses a trilogy unit at nighttime. Gastroesophageal reflux disease Heart failure, type unknown Hypertension Obesity hypoventilation syndrome Obstructive sleep apnea Tobacco abuse Type 2 diabetes mellitus Surgical History Surgical History History of cardiac catheterization No intervention. History of hernia repair History of tonsillectomy Family History Family History Father Diabetes mellitus Other Acute myocardial infarction Social History Social History Social History: Patient is and lives with his and children and [place]. He smoked about a pack of cigarettes a day for 32 years and quit in January 2021. He drinks alcohol rarely and in moderation. Occasional marijuana use, typically in the form of edibles. He designates his , Candie Leahy, as his surrogate decision maker and he wishes to be a full code. Spiritual care concerns: No Comments At the time of my signature, I reviewed and agree with the nursing past medical, surgical, social, and family history. There is no relevant family history pertinent to the patient complaint. Course Course Emergency Course: Portions of this record may have been created with voice recognition software. Vital Signs Vital signs: Vital Signs Temperature 36.6 C 06/22/23 14:18 Pulse Rate 107 H 06/22/23 14:18 Respiratory Rate 18 06/22/23 14:18 Blood Pressure 176/86 H 06/22/23 14:18 Pulse Oximetry 98 06/22/23 14:18 Temperature 36.6 C 06/22/23 14:18
[2023-06-22 15:50] LABS: Basophils Percent Auto 0.4 % (0.2-1.2); Eosinophils Percent Auto 0.3 % (0-4.4); Hematocrit 38.4 % (42.0-52.0); Hemoglobin 12.7 g/dL (14.0-18.0); Immature Granulocyte Absolute 0.05 K/mm3 (0.00-0.031); Immature Granulocyte Percent A 0.5 % (0-0.5); Lymphocytes Percent Auto 25.8 % (18.3-44.2); Mean Corpuscular HGB Conc 33.1 g/dl (32-36); Mean Corpuscular Hemoglobin 28.9 pg (26-34); Mean Corpuscular Volume 87.3 fl (80-100); Mean Platelet Volume 9.9 fl (7.4-10.4); Monocytes Absolute Auto 0.5 K/mm3 (0.1-0.6); Monocytes Percent Auto 5.3 % (2.6-8.5); Neutrophils Absolute Auto 6.8 K/mm3 (1.3-6.7); Neutrophils Percent Auto 67.7 % (45.5-73.1); Platelet Count Result 228 k/mm3 (150-375); Red Cell Distribution Width 12.9 % (11.5-14.5); White Blood Count 10.1 K/mm3 (4.5-10.0)
[2023-06-22 16:14] LABS: Alanine Aminotransferase 62 U/L (6-50); Albumin Level 4.5 g/dL (3.5-5.1); Alkaline Phosphatase 128 U/L (38-126); Anion Gap 8 mmol/L (8-16); Aspartate Amino Transferase 52 U/L (17-59); Bilirubin,Total 0.5 mg/dL (0.2-1.3); Blood Urea Nitrogen 17 mg/dL (9-20); Calcium 9.5 mg/dL (8.4-10.2); Carbon Dioxide 30 mmol/L (22-30); Chloride 94 mmol/L (98-107); Estimated CRCL calculation 137 ml/min; Estimated Glomerular Filt Rate > 60; Glucose 502 mg/dL (65-110); Potassium 4.2 mmol/L (3.4-5.0); Sodium 132 mmol/L (137-145)
--- NOTE | 2023-06-22 19:47 | ED.GENADULT ---
HPI - General Adult General Chief complaint: Unspecified <LIVIA Mcgraw Last Filed: 06/23/23 03:17> Stated complaint: +BLOOD CULTURES <LIVIA Mcgraw Last Filed: 06/23/23 03:17> Time Seen by Provider: 06/22/23 15:37 <LIVIA Mcgraw Last Filed: 06/23/23 03:17> Source: patient <LIVIA Mcgraw Last Filed: 06/23/23 03:17> Mode of arrival: ambulatory <LIVIA Mcgraw Last Filed: 06/23/23 03:17> Limitations: no limitations <LIVIA Mcgraw Last Filed: 06/23/23 03:17> History of Present Illness HPI narrative: 48-year-old male with history of type 2 diabetes, COPD, CHF presents to the emergency department for positive blood cultures. Patient was seen on 06/19/2023 for scrotal wounds, shortness of breath, nausea vomiting. He had a large workup at that time including lab work, CTA chest, abdomen pelvis. Patient is afebrile and nontoxic. CBC with leukocytosis of 10.1. Metabolic pale showed mild transaminitis. Lactic acid was 3. CT scan showed evidence of scrotal wall thickening without focal abscess patient admission was advised, however patient declined. He was provided nebulizer treatments and steroids with improvement. He was discharged home with cefdinir, Flagyl and prednisone. Patient states he has been taking his antibiotics as directed. He was contacted by his PCP today because his preliminary blood culture result came back positive. The patient states he feels great. States this is the best he has ever felt in a long time. States she got 2000 steps this morning before 8:00 a.m. which he has never done before. He denies chest pain, abdominal pain, shortness of breath, fever, nausea vomiting, diarrhea, dysuria or hematuria, rashes. States the scrotal lesions have significantly improved. Denies scrotal pain. <LIVIA Mcgraw Last Filed: 06/23/23 03:17> Related Data Home medications: Home Medications Medication Instructions Recorded Confirmed carvedilol 6.25 mg tablet 6.25 mg PO Q12H 10/18/20 11/12/21 albuterol sulfate 1.25 mg/3 mL 2.5 mg inhalation Q4H PRN 04/13/21 11/12/21 solution for nebulization Shortness Of Breath aspirin 81 mg tablet 81 mg PO DAILY 04/13/21 11/12/21 bupropion HCl 300 mg 24 hr tablet, 300 mg PO QAM 04/13/21 11/12/21 extended release gabapentin 100 mg capsule 100 mg PO TID 04/13/21 11/12/21 losartan 25 mg tablet 25 mg PO DAILY 04/13/21 11/12/21 metformin 500 mg tablet 500 mg PO TID 09/16/21 11/12/21 nystatin 100,000 unit/gram topical 1 applic topical Q12HR PRN Skin 09/16/21 11/12/21 powder Irritation oxycodone-acetaminophen 5 mg-325 1 tablet PO Q4H PRN Pain 11/12/21 11/12/21 mg tablet (Percocet) trazodone 50 mg tablet 50 mg PO HS 11/12/21 11/12/21 <Denisse Dale PA-C - Last Filed: 06/23/23 03:17> Allergies/adverse reactions: Allergies Allergy/AdvReac Type Severity Reaction Status Date / Time Penicillins Allergy Mild Unknown Verified 06/22/23 16:53 <Denisse Dale PA-C - Last Filed: 06/23/23 03:17> Review of Systems Review of Systems: CONSTITUTIONAL: Denies fever, chills, or sweats. EYES: Denies visual changes, redness, or discharge. ENT: Denies rhinorrhea, congestion, sore throat, or otalgia. CARDIOVASCULAR: Denies chest pain, palpitations, or edema. RESPIRATORY: Denies cough or dyspnea. GASTROINTESTINAL: Denies abdominal pain, nausea, vomiting, or diarrhea. GENITOURINARY: Denies dysuria or hematuria. SKIN: Denies rash or itching. MUSCULOSKELETAL: Denies back pain, joint pain, or myalgia. NEUROLOGIC: Denies headache, numbness, or weakness. PSYCHIATRIC: Denies anxiety or depression. <Denisse Dale PA-C - Last Filed: 06/23/23 03:17> [facility] Past Medical History Medical History: Medical History Anxiety and depression Chronic obstructive pulmonary disease Chronic respiratory failu
== END 2023-06-22 21:04 | disposition home or self-care (01) ==
PROVIDERS: Nurse Practitioner Family; Emergency Provider Physician Assistant; PCP Emergency Medicine
DX: R89.5 Abnormal microbiological findings in specimens from other organs, systems and tissues (principal); E11.65 Type 2 diabetes mellitus with hyperglycemia; J44.9 Chronic obstructive pulmonary disease, unspecified; I11.0 Hypertensive heart disease with heart failure; I50.9 Heart failure, unspecified; E11.9 Type 2 diabetes mellitus without complications; Z87.891 Personal history of nicotine dependence
CPT/HCPCS: 36415; 80053; 85025; 99283

== ENCOUNTER 2023-10-21 18:30 | Observation (INO) | payer MEDICARE, MEDICAID, SELFPAY ==
--- NOTE | ~2023-10-21 | XR_ITS ---
EXAMINATION: XR chest 2V Exam Date/Time: 10/21/2023 20:27 CDT HISTORY: sob, COPD, ASTHMA Comparison: 06/19/2023. RESULT: Lines, tubes, and devices: None. Lungs and pleura: Clear. Cardiomediastinal silhouette: Stable. Other: No acute osseous or upper abdominal finding. IMPRESSION: No acute cardiopulmonary process. Reviewed, dictated and finalized at location K.
[2023-10-21 18:34] VITALS: BP 155/76; PULSE 94; RESP 22; TEMP 36.4; O2SAT 97
[2023-10-21 18:38] LABS: Glucose Point of Care 461 mg/dl (65-105)
[2023-10-21 18:39] VITALS: BP 149/73; PULSE 89; RESP 18; O2SAT 96
[2023-10-21 18:54] LABS: Basophils Absolute Auto 0.1 K/mm3 (0.0-0.1); Basophils Percent Auto 0.6 % (0.2-1.2); Eosinophils Absolute Auto 0.1 K/mm3 (0-0.3); Eosinophils Percent Auto 1.2 % (0-4.4); Hematocrit 38.1 % (42.0-52.0); Hemoglobin 12.6 g/dL (14.0-18.0); Immature Granulocyte Absolute 0.03 K/mm3 (0.00-0.031); Immature Granulocyte Percent A 0.3 % (0-0.5); Lymphocytes Absolute Auto 2.47 K/mm3 (0.9-3.2); Lymphocytes Percent Auto 27.8 % (18.3-44.2); Mean Corpuscular HGB Conc 33.1 g/dl (32-36); Mean Corpuscular Hemoglobin 29.7 pg (26-34); Mean Corpuscular Volume 89.9 fl (80-100); Mean Platelet Volume 10.8 fl (7.4-10.4); Monocytes Absolute Auto 0.4 K/mm3 (0.1-0.6); Monocytes Percent Auto 4.7 % (2.6-8.5); Neutrophils Absolute Auto 5.8 K/mm3 (1.3-6.7); Neutrophils Percent Auto 65.4 % (45.5-73.1); Platelet Count Result 182 k/mm3 (150-375); Red Blood Count 4.24 M/mm3 (4.6-6.20); Red Cell Distribution Width 13.5 % (11.5-14.5); White Blood Count 8.9 K/mm3 (4.5-10.0)
[2023-10-21 19:00] LABS: Appearance Urine Clear (Clear); Bilirubin Urine Negative (Negative); Blood Urine Negative (Negative); Color Urine Yellow (Yellow); Glucose Urine UA 3+ mg/dL (Negative); Ketones Urine Negative (Negative); Leukocyte Esterase Ur Negative LEU/UL (Negative); Nitrate Urine Negative (Negative); Protein Urine Negative (Negative); Specific Grav Ur 1.042 (1.001-1.035); Urobilinogen Urine 0.2 mg/dL (<2.0); pH Urine 6.5 (5.0-9.0)
[2023-10-21 19:06] LABS: Alanine Aminotransferase 32 U/L (6-50); Albumin Level 3.9 g/dL (3.5-5.1); Alkaline Phosphatase 130 U/L (38-126); Anion Gap 9 mmol/L (4-12); Aspartate Amino Transferase 39 U/L (17-59); Bilirubin,Total 0.4 mg/dL (0.2-1.3); Blood Urea Nitrogen 9 mg/dL (9-20); Calcium 8.5 mg/dL (8.4-10.2); Carbon Dioxide 25 mmol/L (22-30); Chloride 100 mmol/L (98-107); Estimated CRCL calculation 207 ml/min; Estimated Glomerular Filt Rate > 60; Glucose 487 mg/dL (65-110); Magnesium 1.9 mg/dL (1.6-2.3); Phosphorus 2.6 mg/dL (2.5-4.5); Potassium 4.2 mmol/L (3.4-5.0); Sodium 134 mmol/L (137-145)
[2023-10-21 19:14] LABS: Add Urine Microscopic? NO
--- NOTE | 2023-10-21 19:58 | ED.RECABL ---
HPI - Recheck/Abnormal Lab/Rx General Chief Complaint: Recheck/Abnormal Lab/Rx <Babs Betancourt PA-C - Last Filed: 10/21/23 22:54> Stated Complaint: numbness <Babs Betancourt PA-C - Last Filed: 10/21/23 22:54> Time Seen by Provider: 10/21/23 18:43 <Babs Betancourt PA-C - Last Filed: 10/21/23 22:54> Source: patient <Babs Betancourt PA-C - Last Filed: 10/21/23 22:54> Mode of arrival: ambulatory <Babs Betancourt PA-C - Last Filed: 10/21/23 22:54> Limitations: no limitations <Babs Betancourt PA-C - Last Filed: 10/21/23 22:54> History of Present Illness HPI narrative: patient is a 48-year-old male who presents the ED with report of elevated blood sugars. Patient reports over the last 2-3 months, his blood sugars have been elevated, up to 600 at times. He reports he was recently diagnosed from prediabetic to diabetic. He is currently only on metformin therapy, 500mg bid. he states he has been having issues getting a hold of his primary care doctor and recently had to switch to another physician within the practice. He states he was referred to an it business analyst, but does not have an appointment yet. He has never been on insulin therapy. He reports over the last several weeks, he has been having polyuria, polydipsia. He notes he has to wake up every 20 minutes at night to urinate. He also reports having pain and tingling in his legs, from his mid calf down to his feet. He states it feels as though he has mittens on his feet and is walking through cold water. Per med rec, patient is on Gabapentin 300mg TID, but states this does not help. Has been worsening over past few days. Denies swelling in BLE. Patient was seen at [facility] for these sx's last night, was given dose of insulin and fluids and discharged. Per med rec, it appears he was rx'd glyburide, but has not started this. Patient also complains of headache and nausea currently. <LIVIA Brooks Last Filed: 10/21/23 22:54> Related Data Home Medications: Home Medications Medication Instructions Recorded Confirmed carvedilol 6.25 mg tablet 6.25 mg PO Q12H 10/18/20 11/12/21 albuterol sulfate 1.25 mg/3 mL 2.5 mg inhalation Q4H PRN 04/13/21 11/12/21 solution for nebulization Shortness Of Breath aspirin 81 mg tablet 81 mg PO DAILY 04/13/21 11/12/21 bupropion HCl 300 mg 24 hr tablet, 300 mg PO QAM 04/13/21 11/12/21 extended release gabapentin 100 mg capsule 100 mg PO TID 04/13/21 11/12/21 losartan 25 mg tablet 25 mg PO DAILY 04/13/21 11/12/21 metformin 500 mg tablet 500 mg PO TID 09/16/21 11/12/21 nystatin 100,000 unit/gram topical 1 applic topical Q12HR PRN Skin 09/16/21 11/12/21 powder Irritation oxycodone-acetaminophen 5 mg-325 1 tablet PO Q4H PRN Pain 11/12/21 11/12/21 mg tablet (Percocet) trazodone 50 mg tablet 50 mg PO HS 11/12/21 11/12/21 <LIVIA Brooks Last Filed: 10/21/23 22:54> Allergies/Adverse Reactions: Allergies Allergy/AdvReac Type Severity Reaction Status Date / Time Penicillins Allergy Mild Unknown Verified 06/22/23 16:53 <LIVIA Brooks Last Filed: 10/21/23 22:54> Review of Systems Review of Systems: CONSTITUTIONAL: Denies fever, chills, or sweats. ENT: see HPI. CARDIOVASCULAR: Denies chest pain, palpitations, or edema. RESPIRATORY: Denies cough or dyspnea. GASTROINTESTINAL: See HPI. GENITOURINARY: See HPI MUSCULOSKELETAL: See HPI NEUROLOGIC: See HPI <LIVIA Brooks Last Filed: 10/21/23 22:54> All systems reviewed & are unremarkable except as noted in HPI and below <LIVIA Brooks Last Filed: 10/21/23 22:54> [facility]END[facility] S[facility] TO [facility] Past Medical History Medical History: Medical History Anxiety and depression Chronic obstructive pulmonary disease Chronic respiratory failure with hypoxia and hypercapnia He
[2023-10-21] MEDS: ONDANSETRON INJ 4 MG/2 ML VIAL IV PUSH (19:59)
[2023-10-21] MEDS: SODIUM CHLORIDE 0.9% IV 1,000 ML 999 ML IV CONT ×2 (19:59→20:07)
[2023-10-21] MEDS: ACETAMINOPHEN 500 MG TABLET 1000 MG PO (20:03)
[2023-10-21 20:04] LABS: Beta-Hydroxybutyrate/Acetoacetate 0.17 mmol/L (0.02-0.27)
[2023-10-21 20:14] VITALS: BP 154/98; PULSE 81; RESP 20; TEMP 36.8; O2SAT 97
[2023-10-21 20:35] LABS: NT Pro B Type Natriuretic Pept 46 pg/mL (19.9-100)
[2023-10-21 20:52] LABS: Hemoglobin A1C > 14.0 % (<5.7)
[2023-10-21 21:01] VITALS: PULSE 90; RESP 18
[2023-10-21] MEDS: IPRATROPIUM 0.5 MG/ALBUTEROL SULFATE 2.5 MG AMPUL.NEB 3 ML INHALATION (21:01)
[2023-10-21 21:18] LABS: Glucose Point of Care 348 mg/dl (65-105)
[2023-10-21 21:26] VITALS: BP 160/92; PULSE 86; RESP 15; O2SAT 98
[2023-10-21] MEDS: INSULIN GLARGINE (*BKC) 100 UNITS/ML 15 UNITS SUB-Q (22:26)
[2023-10-21 22:29] LABS: Glucose Point of Care 307 mg/dl (65-105)
--- NOTE | 2023-10-21 23:17 | ADMGEN ---
This patient, Jerzy Leahy, was admitted to Medical Room 253-01. Patient/family oriented to hospital policies and general routines including ID bracelet, bed and alarms, visiting hours, pain management, procedures, bathroom and other care routines, personal items, smoking policy, room service/diet, and visiting hours. Information on how to activate the Rapid Response Team has been discussed. Patient/Family are encouraged to report perceived risks to care and to ask questions if they do not understand what they are told or what they should do.
[2023-10-21 23:30] VITALS: BP 145/74; PULSE 82; RESP 18; TEMP 36.4; O2SAT 100
[2023-10-21 23:31] VITALS: BMI 49.4
[2023-10-22] VITALS (14 sets, daily range): BP systolic 128–154; BP diastolic 69–87; PULSE 69–112; RESP 14–24; TEMP 36.8–37.1; O2SAT 94–100
[2023-10-22] MEDS: INSULIN ASPART (*BKC) 100 UNITS/ML 8 UNITS SUB-Q (00:13)
[2023-10-22 03:03] LABS: Glucose Point of Care 322 mg/dl (65-105)
[2023-10-22] MEDS: ACETAMINOPHEN 325 MG TABLET 650 MG PO ×2 (05:46→09:23)
[2023-10-22 08:12] LABS: Glucose Point of Care 254 mg/dl (65-105)
--- NOTE | 2023-10-22 08:21 | PM.IMHP ---
H&P: HPI History of Present Illness Date/Time: 10/22/23 08:21 Chief Complaint: Hyperglycemia Narrative: Patient is a 48-year-old male who presented to the emergency department with complaints of hyperglycemia. Patient reported past medical history of chronic respiratory failure with hypoxia secondary to obesity hypoventilation syndrome, diabetes, HTN, MORGAN, obesity, anxiety and depression, HLD, and heart failure. Patient reported he was initially working with his primary care physician to control his diabetes however has recently retired once a new PCP was established he was instructed to follow with an meteorological aide however patient reports he was unable to get in for an appointment for 3 months. Patient stated his blood sugars have been greater than 600 at home and these had new onset of bilateral lower extremity neuropathy, polyuria and polydipsia. Patient states he was seen at [facility] given insulin and IV fluids and sent home he took his blood sugar at home and it was greater than 600. Patient's glucose in the emergency department was 502. Other labs unremarkable and CXR with no acute cardiopulmonary process. Patient was admitted to the medical unit for hyperglycemia plan to initiate insulin and consult hematology nurse educator. Review of Systems Review of Systems: All systems reviewed & are unremarkable except as noted in HPI and below PMFSH Past Medical History Medical History Anxiety and depression Chronic obstructive pulmonary disease Chronic respiratory failure with hypoxia and hypercapnia He is on continuous oxygen during the day and uses a trilogy unit at nighttime. Gastroesophageal reflux disease Heart failure, type unknown Hypertension Obesity hypoventilation syndrome Obstructive sleep apnea Tobacco abuse Type 2 diabetes mellitus Surgical History Surgical History History of cardiac catheterization No intervention. History of hernia repair History of tonsillectomy Family History Family History Father Diabetes mellitus Other Acute myocardial infarction Social History Social History Social History: Patient is and lives with his and children and [place]. He smoked about a pack of cigarettes a day for 32 years and quit in January 2021. He drinks alcohol rarely and in moderation. Occasional marijuana use, typically in the form of edibles. He designates his , Candie Leahy, as his surrogate decision maker and he wishes to be a full code. Smoking packs per day: 2 Smoking cigarettes per day: 40.0 Years smoked: 21 Smoking pack-years: 42.00 Smoking status: Former smoker Tobacco type: cigarettes Second hand tobacco smoke exposure: Yes Smoking end date: 02/24/21 Alcohol intake: never Do You Feel Safe in your Home?: Yes Lack of Transportation: No Lack of Food: Never True Current Housing: I Have Housing Concerned About Future Housing: No Difficulty Paying Gas/Electric Bills: No Difficulty Paying for Meds: No Currently Unemployed: No Education: High School Diploma/GED Difficulty w/ Childcare or Family Care: No Spiritual care concerns: No Meds Home Medications and Allergies Home Medications Medication Instructions Recorded Confirmed Type carvedilol 6.25 mg tablet 6.25 mg PO Q12H 10/18/20 10/22/23 History albuterol sulfate 1.25 mg/3 mL 2.5 mg inhalation Q4H PRN 04/13/21 10/22/23 History solution for nebulization Shortness Of Breath gabapentin 100 mg capsule 300 mg PO QID 04/13/21 10/22/23 History losartan 25 mg tablet 50 mg PO DAILY 04/13/21 10/22/23 History metformin 500 mg tablet 1,000 mg PO BID 09/16/21 10/22/23 History albuterol sulfate 90 mcg/actuation 2 puff inhalation Q4-6H PRN
[2023-10-22 08:28] LABS: Cholesterol 124 mg/dL (0-200); HDL Direct 21 mg/dL; Triglycerides 326 mg/dL (<150)
[2023-10-22 08:39] LABS: LDL Cholesterol Direct 69 mg/dL
[2023-10-22] MEDS: INSULIN ASPART (*BKC) 100 UNITS/ML SUB-Q ×2 (08:57→12:19)
[2023-10-22] MEDS: glyBURIDE 5 MG TABLET PO (08:58)
[2023-10-22] MEDS: FLUTICASONE PROPIONATE 0.05% NA SPR 16 GM BTL (*BKC) 1 SPRAY NASAL (08:59)
[2023-10-22] MEDS: hydrOXYzine pamoate 25 MG CAPSULE 50 MG PO ×2 (08:59→17:32)
[2023-10-22] MEDS: EMPAGLIFLOZIN 10 MG TABLET PO (08:59)
[2023-10-22] MEDS: GABAPENTIN 300 MG CAPSULE PO ×4 (09:00→21:32)
[2023-10-22] MEDS: metFORMIN HCL 500 MG TABLET 1000 MG PO ×2 (09:00→17:31)
[2023-10-22] MEDS: buPROPion HCL XL (24 HR) 150 MG TABCR PO (09:00)
[2023-10-22] MEDS: methocarbamoL 750 MG TABLET PO ×3 (09:00→17:31)
[2023-10-22] MEDS: FUROSEMIDE 40 MG TABLET PO ×2 (09:00→17:31)
[2023-10-22] MEDS: DOXEPIN HCL 10 MG CAPSULE PO (09:01)
[2023-10-22] MEDS: LOSARTAN POTASSIUM 25 MG TABLET 50 MG PO (09:01)
[2023-10-22] MEDS: lamoTRIgine 100 MG TABLET PO ×2 (09:01→21:32)
[2023-10-22] MEDS: busPIRone HCL 10 MG TABLET 20 MG PO ×3 (09:01→17:32)
[2023-10-22] MEDS: CELECOXIB 200 MG CAPSULE PO (09:02)
[2023-10-22] MEDS: POTASSIUM CHLORIDE 10 MEQ ER TABLET PO ×2 (09:02→17:32)
[2023-10-22] MEDS: ONDANSETRON INJ 4 MG/2 ML VIAL IV PUSH (09:03)
[2023-10-22] MEDS: carvediloL 6.25 MG TABLET PO ×2 (09:14→21:32)
[2023-10-22] MEDS: ENOXAPARIN 40 MG/0.4 ML SYRINGE SUB-Q (09:14)
[2023-10-22] MEDS: ZIPRASIDONE HCL 20 MG CAPSULE 60 MG PO ×2 (09:14→17:31)
[2023-10-22 09:16] LABS: Basophils Percent Auto 0.5 % (0.2-1.2); Eosinophils Absolute Auto 0.2 K/mm3 (0-0.3); Eosinophils Percent Auto 2.3 % (0-4.4); Hematocrit 34.8 % (42.0-52.0); Hemoglobin 11.3 g/dL (14.0-18.0); Immature Granulocyte Absolute 0.02 K/mm3 (0.00-0.031); Immature Granulocyte Percent A 0.3 % (0-0.5); Lymphocytes Absolute Auto 2.19 K/mm3 (0.9-3.2); Lymphocytes Percent Auto 33.4 % (18.3-44.2); Mean Corpuscular HGB Conc 32.5 g/dl (32-36); Mean Corpuscular Hemoglobin 29.7 pg (26-34); Mean Corpuscular Volume 91.3 fl (80-100); Monocytes Absolute Auto 0.4 K/mm3 (0.1-0.6); Monocytes Percent Auto 5.6 % (2.6-8.5); Neutrophils Absolute Auto 3.8 K/mm3 (1.3-6.7); Neutrophils Percent Auto 57.9 % (45.5-73.1); Platelet Count Result 155 k/mm3 (150-375); Red Blood Count 3.81 M/mm3 (4.6-6.20); Red Cell Distribution Width 13.6 % (11.5-14.5); White Blood Count 6.6 K/mm3 (4.5-10.0)
[2023-10-22] MEDS: AZELASTINE HCL NASAL 0.1% 137 MCG/SPR 30 ML BTL 2 SPRAY NASAL ×2 (09:23→21:33)
[2023-10-22 09:27] LABS: Anion Gap 9 mmol/L (4-12); Blood Urea Nitrogen 9 mg/dL (9-20); Calcium 8.3 mg/dL (8.4-10.2); Carbon Dioxide 25 mmol/L (22-30); Chloride 101 mmol/L (98-107); Estimated CRCL calculation 209 ml/min; Estimated Glomerular Filt Rate > 60; Glucose 299 mg/dL (65-110); Potassium 3.9 mmol/L (3.4-5.0); Sodium 135 mmol/L (137-145)
[2023-10-22 12:11] LABS: Glucose Point of Care 252 mg/dl (65-105)
[2023-10-22] MEDS: KETOROLAC 30 MG/ML VIAL (*BKC) IV PUSH (12:25)
[2023-10-22] MEDS: INSULIN GLARGINE (*BKC) 100 UNITS/ML 15 UNITS SUB-Q (14:42)
[2023-10-22 16:52] LABS: Glucose Point of Care 188 mg/dl (65-105)
[2023-10-22 20:35] LABS: Glucose Point of Care 236 mg/dl (65-105)
[2023-10-22] MEDS: cloNIDine HCL 0.1 MG TABLET PO (21:32)
[2023-10-22] MEDS: ATORVASTATIN 40 MG TABLET PO (21:32)
[2023-10-22] MEDS: DULoxetine HCL 60 MG CAPSULE.DR PO (21:32)
[2023-10-23 01:35] VITALS: PULSE 76; RESP 20; O2SAT 99
[2023-10-23 05:05] LABS: Basophils Percent Auto 0.3 % (0.2-1.2); Eosinophils Absolute Auto 0.2 K/mm3 (0-0.3); Eosinophils Percent Auto 2.6 % (0-4.4); Hematocrit 36.8 % (42.0-52.0); Hemoglobin 11.9 g/dL (14.0-18.0); Immature Granulocyte Absolute 0.03 K/mm3 (0.00-0.031); Immature Granulocyte Percent A 0.4 % (0-0.5); Lymphocytes Absolute Auto 2.18 K/mm3 (0.9-3.2); Lymphocytes Percent Auto 31.1 % (18.3-44.2); Mean Corpuscular HGB Conc 32.3 g/dl (32-36); Mean Corpuscular Hemoglobin 29.6 pg (26-34); Mean Corpuscular Volume 91.5 fl (80-100); Mean Platelet Volume 10.1 fl (7.4-10.4); Monocytes Absolute Auto 0.5 K/mm3 (0.1-0.6); Monocytes Percent Auto 6.6 % (2.6-8.5); Neutrophils Absolute Auto 4.1 K/mm3 (1.3-6.7); Platelet Count Result 158 k/mm3 (150-375); Red Blood Count 4.02 M/mm3 (4.6-6.20); Red Cell Distribution Width 13.8 % (11.5-14.5)
[2023-10-23 05:17] LABS: Alanine Aminotransferase 46 U/L (6-50); Albumin Level 3.6 g/dL (3.5-5.1); Alkaline Phosphatase 115 U/L (38-126); Anion Gap 7 mmol/L (4-12); Aspartate Amino Transferase 75 U/L (17-59); Bilirubin,Total 0.3 mg/dL (0.2-1.3); Blood Urea Nitrogen 10 mg/dL (9-20); Calcium 8.6 mg/dL (8.4-10.2); Carbon Dioxide 30 mmol/L (22-30); Chloride 100 mmol/L (98-107); Estimated CRCL calculation 160 ml/min; Estimated Glomerular Filt Rate > 60; Glucose 228 mg/dL (65-110); Potassium 3.8 mmol/L (3.4-5.0); Sodium 137 mmol/L (137-145)
[2023-10-23 06:00] VITALS: BP 139/85; PULSE 80; RESP 16; TEMP 36.4; O2SAT 98
[2023-10-23 08:14] LABS: Glucose Point of Care 216 mg/dl (65-105)
[2023-10-23] MEDS: INSULIN ASPART (*BKC) 100 UNITS/ML SUB-Q (08:46)
[2023-10-23] MEDS: lamoTRIgine 100 MG TABLET PO (08:46)
[2023-10-23] MEDS: INSULIN GLARGINE (*BKC) 100 UNITS/ML 33 UNITS SUB-Q (08:46)
[2023-10-23] MEDS: ZIPRASIDONE HCL 20 MG CAPSULE 60 MG PO (08:47)
[2023-10-23] MEDS: busPIRone HCL 10 MG TABLET 20 MG PO ×2 (08:47→12:19)
[2023-10-23] MEDS: GABAPENTIN 300 MG CAPSULE PO ×2 (08:47→12:20)
[2023-10-23] MEDS: DOXEPIN HCL 10 MG CAPSULE PO (08:47)
[2023-10-23] MEDS: POTASSIUM CHLORIDE 10 MEQ ER TABLET PO (08:47)
[2023-10-23] MEDS: EMPAGLIFLOZIN 10 MG TABLET PO (08:47)
[2023-10-23] MEDS: hydrOXYzine pamoate 25 MG CAPSULE 50 MG PO (08:47)
[2023-10-23] MEDS: LOSARTAN POTASSIUM 25 MG TABLET 50 MG PO (08:47)
[2023-10-23] MEDS: metFORMIN HCL 500 MG TABLET 1000 MG PO (08:47)
[2023-10-23] MEDS: buPROPion HCL XL (24 HR) 150 MG TABCR PO (08:47)
[2023-10-23 08:48] VITALS: PULSE 80
[2023-10-23] MEDS: FLUTICASONE PROPIONATE 0.05% NA SPR 16 GM BTL (*BKC) 1 SPRAY NASAL (08:48)
[2023-10-23] MEDS: CELECOXIB 200 MG CAPSULE PO (08:48)
[2023-10-23] MEDS: carvediloL 6.25 MG TABLET PO (08:48)
[2023-10-23] MEDS: methocarbamoL 750 MG TABLET PO ×2 (08:48→12:19)
[2023-10-23] MEDS: ENOXAPARIN 40 MG/0.4 ML SYRINGE SUB-Q (08:48)
[2023-10-23] MEDS: FUROSEMIDE 40 MG TABLET PO (08:48)
[2023-10-23] MEDS: AZELASTINE HCL NASAL 0.1% 137 MCG/SPR 30 ML BTL 2 SPRAY NASAL (08:49)
[2023-10-23] MEDS: ACETAMINOPHEN 325 MG TABLET 650 MG PO (09:04)
[2023-10-23 11:00] VITALS: BMI 49.4
[2023-10-23 11:56] LABS: Glucose Point of Care 195 mg/dl (65-105)
--- NOTE | 2023-10-23 13:46 | PM.DS ---
DS: Admitting Diagnosis Discharge Date 10/23/23 Admitting Diagnosis Hyperglycemia DS: Discharge Diagnosis Discharge Diagnosis (1) Uncontrolled diabetes mellitus: Qualifiers: Diabetes mellitus type: type 2 Glycemic state: with hyperglycemia Qualified Code(s): E11.65 - Type 2 diabetes mellitus with hyperglycemia Status: Acute (2) Type 2 diabetes mellitus: Code(s): E11.9 - Type 2 diabetes mellitus without complications Status: Acute (3) Anxiety and depression: Code(s): F41.9 - Anxiety disorder, unspecified; F32.A - Depression, unspecified Status: Acute Plan # uncontrolled type 2 diabetes -hemoglobin A1c 15 -patient presents with elevated blood sugars and worsening lower extremity neuropathy -explain to patient importance of having diabetes under control, risk of dialysis, amputations, loss of vision -starting at sliding scale insulin, Accu-Cheks a.c. HS, Lantus 30 units, Jardiance -patient is seen diabetic Education DS: Summary Hospital Course Reason for hospitalization: Hyperglycemia Hospital Course: Patient is a 48-year-old male with past medical history of obesity hypoventilation syndrome, essential hypertension, type 2 diabetes, anxiety/depression presents to the ED with complaints of elevated blood sugar and lower extremity neuropathy. Appears patient's A1c was previously 6.6 and October of 2021 and now is greater than 14. He states a couple days ago his PCP checked his A1c and he was at 15 and recommendation from PCP was for endocrinology follow-up outpatient. PCP did not start any insulin. He presented on 10/21 and after several doses insulin his blood sugars have come down to 200. He has seen diabetic Education. Will start Lantus 30 units daily and sliding scale insulin. Patient given pen needles for his new prescriptions. We have also started patient on Jardiance. At time of discharge patient's labs are stable, vitals stable, patient is stable for discharge home. Patient follow-up with his PCP (with blood sugar log) and outpatient endocrinology. Patient understands and agrees with plan. Status at Discharge Cognitive/behavioral status at discharge: At baseline Time Spent with Patient Time attestation: Total time spent providing and/or coordinating discharge services: 35 minutes Exam Narrative: - GENERAL: Pleasant obese male in No acute distress. Well-nourished. - EYES: EOMI. Anicteric. - HENT: Moist mucous membranes. - LUNGS: Clear to auscultation bilaterally, no wheezing, rhonchi, or rales. - CARDIOVASCULAR: Regular rate and rhythm. No murmur. No JVD. - ABDOMEN: Soft, non-tender and non-distended. No palpable masses. - EXTREMITIES: trace edema. Peripheral pulses 2+. Non-tender. - NEUROLOGIC: No focal neurological deficits. CN II-XII grossly intact. - PSYCHIATRIC: Awake, Alert and oriented x 3. Appropriate mood and affect. - SKIN: No rashes or lesions. Warm. - LYMPH: No cervical lymphadenopathy. DS: Data Data Completed and Pending Labs on day of discharge: Labs from last 24 hours 10/23/23 10/23/23 10/23/23 11:49 08:04 04:52 WBC 7.0 RBC 4.02 L Hgb 11.9 L Hct 36.8 L MCV 91.5 MCH 29.6 MCHC 32.3 RDW 13.8 Plt Count 158 MPV 10.1 Immature Gran % (Auto) 0.4 Neut % (Auto) 59.0 Lymph % (Auto) 31.1 Traverse % (Auto) 6.6 Eos % (Auto) 2.6 Baso % (Auto) 0.3 Lymph # (Auto) 2.18 Traverse # (Auto) 0.5 Eos # (Auto) 0.2 Baso # (Auto) 0.0 Abs Immat Gran (auto) 0.03 Absolute Neuts (auto) 4.1 Absolute Nucleated RBC 0.000 Nucleated RBC % 0.0 Sodium 137 Potassium 3.8 Chloride 100 Carbon Dioxide 30 Anion Gap 7 BUN 10 Creatinine 0.80 Estim Creat Clear Calc 160 Estimated GFR > 60 Glucose 228 H POC Capillary Glucose 195 H 216 H Calcium 8.6 Total Bilirubin 0.3 AST 75 H ALT 46 Alkaline Phosphatase 115 Total Protein 7.0 Albumin 3.6 10/22/23
== END 2023-10-23 14:40 | disposition home or self-care (01) ==
LOC: ANHED 19:04 → ANH2MED 22:50
PROVIDERS: Emergency Medicine; Admitting Provider Internal Medicine; Emergency Provider Physician Assistant; PCP Emergency Medicine; Visit Provider Nurse Practitioner Family
DX: E11.65 Type 2 diabetes mellitus with hyperglycemia (principal); J96.12 Chronic respiratory failure with hypercapnia; J96.11 Chronic respiratory failure with hypoxia; Z99.81 Dependence on supplemental oxygen; I11.0 Hypertensive heart disease with heart failure; I50.9 Heart failure, unspecified; J44.9 Chronic obstructive pulmonary disease, unspecified; F41.8 Other specified anxiety disorders; E78.5 Hyperlipidemia, unspecified; K21.9 Gastro-esophageal reflux disease without esophagitis; E66.2 Morbid (severe) obesity with alveolar hypoventilation; Z68.42 Body mass index [BMI] 45.0-49.9, adult; F12.90 Cannabis use, unspecified, uncomplicated; Z87.891 Personal history of nicotine dependence; Z79.51 Long term (current) use of inhaled steroids; Z79.82 Long term (current) use of aspirin; Z79.84 Long term (current) use of oral hypoglycemic drugs; Z79.891 Long term (current) use of opiate analgesic
CPT/HCPCS: 36415; 71046; 80048; 80053; 80061; 81003; 82010; 82948; 83036; 83735; 83880; 84100; 85025; 94002; 94003; 94640; 96361; 96372; 96374; 99285; A9270; G0378; J1650; J1815; J1885; J2405; J7030

== ENCOUNTER 2024-01-14 19:05 | Emergency (ER) | payer MEDICARE, MEDICAID, SELFPAY ==
[2024-01-14 19:26] VITALS: BP 130/67; PULSE 87; RESP 18; TEMP 36.5; O2SAT 98
[2024-01-14 22:13] VITALS: BP 138/88; PULSE 88; RESP 18; O2SAT 98
--- NOTE | 2024-01-15 01:01 | ED.SKABFB ---
HPI - Skin/Abscess/Foreign Bdy General Chief complaint: Skin/Abscess/Foreign Body Stated complaint: exploded skin tag on my leg & rectal bleeding Time Seen by Provider: 01/14/24 23:56 History of Present Illness HPI narrative: 48-year-old male with history of uncontrolled diabetes and morbid obesity. He presents to the emergency department for concerns of a skin tag on his right inner thigh and near the rectum. He states that earlier today he had his skin tag that has been there for some time started developing a black tinge to it become painful. No overlying skin changes, no redness, fever, chills or any other issues. He states he has a skin tag on his neck and also near his rectum. Knows that there was some drops of blood when he went to wipe today causing him concern and he went to the ER for evaluation. Related Data Home Medications Medication Instructions Recorded Confirmed carvedilol 6.25 mg tablet 6.25 mg PO Q12H 10/18/20 10/22/23 albuterol sulfate 1.25 mg/3 mL 2.5 mg inhalation Q4H PRN 04/13/21 10/22/23 solution for nebulization Shortness Of Breath gabapentin 100 mg capsule 300 mg PO QID 04/13/21 10/22/23 losartan 25 mg tablet 50 mg PO DAILY 04/13/21 10/22/23 metformin 500 mg tablet 1,000 mg PO BID 09/16/21 10/22/23 albuterol sulfate 90 mcg/actuation 2 puff inhalation Q4-6H PRN 10/22/23 10/22/23 aerosol inhaler shortness of breath or wheezing atorvastatin 20 mg tablet 20 mg PO 10/22/23 10/22/23 azelastine 137 mcg (0.1 %) nasal 137 mcg intranasal BID 10/22/23 10/22/23 spray buprenorphine HCl 150 mcg buccal 150 mcg buccal Q12H 10/22/23 10/22/23 film ([place]) bupropion HCl 150 mg 24 hr tablet, 150 mg PO QAM 10/22/23 10/22/23 extended release buspirone 10 mg tablet 10 mg PO TID 10/22/23 10/22/23 celecoxib 200 mg capsule 200 mg PO DAILY 10/22/23 10/22/23 clonidine HCl 0.1 mg tablet 0.1 mg PO 10/22/23 10/22/23 doxepin 10 mg capsule 10 mg PO DAILY 10/22/23 10/22/23 duloxetine 60 mg capsule,delayed 60 mg PO HS 10/22/23 10/22/23 release fluticasone propionate 50 50 mcg intranasal DAILY 10/22/23 10/22/23 mcg/actuation nasal spray,suspension furosemide 40 mg tablet (Lasix) 40 mg PO BID 10/22/23 10/22/23 glyburide 2.5 mg tablet 2.5 mg PO DAILY 10/22/23 10/22/23 hydroxyzine pamoate 50 mg capsule 50 mg PO BID 10/22/23 10/22/23 lamotrigine 100 mg tablet 100 mg PO BID 10/22/23 10/22/23 methocarbamol 750 mg tablet 750 mg PO TID 10/22/23 10/22/23 potassium chloride 10 mEq 10 meq PO BID 10/22/23 10/22/23 tablet,extended release umeclidinium 62.5 mcg-vilanterol 1 inh inhalation PRN PRN Shortness 10/22/23 10/22/23 25 mcg/actuation powdr for Of Breath Or Wheezing inhalation (Anoro Ellipta) ziprasidone HCl 60 mg capsule 60 mg PO BID 10/22/23 10/22/23 Allergies Allergy/AdvReac Type Severity Reaction Status Date / Time Penicillins Allergy Mild Hives Verified 01/14/24 19:06 Review of Systems Review of Systems: As reviewed above in the [facility] Past Medical History Medical History Anxiety and depression Chronic obstructive pulmonary disease Chronic respiratory failure with hypoxia and hypercapnia He is on continuous oxygen during the day and uses a trilogy unit at nighttime. Gastroesophageal reflux disease Heart failure, type unknown Hypertension Obesity hypoventilation syndrome Obstructive sleep apnea Tobacco abuse Type 2 diabetes mellitus Surgical History Surgical History History of cardiac catheterization No intervention. History of hernia repair History of tonsillectomy Family History Family History Father Diabetes mellitus Other Acute myocardial infarction Social History Social History Social History: Patient is and lives wit
[2024-01-15 01:13] VITALS: BP 140/78; PULSE 79; RESP 19; O2SAT 98
== END 2024-01-15 01:14 | disposition home or self-care (01) ==
PROVIDERS: Emergency Provider Student in an Organized Health Care Education/Training Program; PCP Emergency Medicine
DX: L91.8 Other hypertrophic disorders of the skin (principal); K64.4 Residual hemorrhoidal skin tags; J44.9 Chronic obstructive pulmonary disease, unspecified; J96.11 Chronic respiratory failure with hypoxia; J96.12 Chronic respiratory failure with hypercapnia; I11.0 Hypertensive heart disease with heart failure; I50.9 Heart failure, unspecified; E11.9 Type 2 diabetes mellitus without complications; E66.2 Morbid (severe) obesity with alveolar hypoventilation; Z68.43 Body mass index [BMI] 50.0-59.9, adult; K21.9 Gastro-esophageal reflux disease without esophagitis; F32.A Depression, unspecified; F41.9 Anxiety disorder, unspecified; Z99.81 Dependence on supplemental oxygen; Z87.891 Personal history of nicotine dependence; Z79.84 Long term (current) use of oral hypoglycemic drugs; Z79.899 Other long term (current) drug therapy; Z79.4 Long term (current) use of insulin
CPT/HCPCS: 99282

== ENCOUNTER 2024-01-23 10:25 | Outpatient (CLI) | payer MEDICARE, MEDICAID, SELFPAY ==
--- NOTE | 2024-01-23 13:44 | WPDPFTINT ---
PFT Procedure Performed PFT Procedure Performed Spirometry with Pre/Post Bronchodilator Plethysmography (Lung Vol) Diffusing Cap (DLCO) Flow Vol Loop PFT Interpretation Lung volumes were measured with the body plethysmography method. The diminished expiratory reserve volume is related to severe obesity. The remaining lung volumes are unremarkable. Spirometry showed diminished expiratory flow rates and a diminished FEV1 to FVC ratio 67%, suggestive of obstructive airway disease. Following administration of a bronchodilator there was no significant increase in expiratory flow rates. Lung diffusion capacity is mildly reduced at 62% predicted. The diminished lung diffusion capacity in combination with low alveolar volume and a normal DLCO/VA ratio may suggest loss of alveolar capillary structure with loss of lung volume as seen in emphysema or interstitial lung disease. Clinical correlation advised. In comparison to previous study in July of 2021, there has been no significant change in forced vital capacity, expiratory flow rates or lung diffusion capacity. Total lung capacity is now larger by approximately 1.2 L. Impression: Mild obstructive airway disease with no response to bronchodilators on this testing. Mild reduction in lung diffusion capacity.
== END 2024-01-23 10:26 | disposition home or self-care (01) ==
LOC: ANHPFT 10:27
PROVIDERS: PCP Emergency Medicine; Visit Provider Internal Medicine Pulmonary Disease
DX: J45.40 Moderate persistent asthma, uncomplicated (principal); R94.2 Abnormal results of pulmonary function studies
CPT/HCPCS: 94060; 94726; 94729

== ENCOUNTER 2024-02-04 16:58 | Emergency (ER) | payer MEDICARE, MEDICAID, SELFPAY ==
--- NOTE | ~2024-02-04 | CT_ITS ---
CT pelvis w con Ordering provider: Felipe Aquino MD History: . RULE OUT PERIANAL ABSCESS . Comparison: None. Technique: CT pelvis without oral and IV contrast. . Automated exposure control and iterative recons truction technique were employed. The dose-length product was 1364.45 mGy-cm. Findings: BONES: No pelvic fracture or hip dislocation. Age appropriate degenerative changes of the visualized lower lumbar spine. The hip and sacroiliac joint spaces are well maintained. SUPERFICIAL SOFT TISSUES: Soft tissue density seen in the right buttock medially which is most likely inflammatory with no definite abscess formation. Bilateral fat containing inguinal hernias. Right inguinal lymphadenopathy measuring 3.6 cm. Small fat-containing umbilical hernia. PELVIC ORGANS: The bladder is normal. bilateral iliac lymph nodes are noted with the largest measures 2.3 cm on the right side. VISUALIZED BOWEL AND MESENTERY: Normal. No free air or free fluid. No lymphadenopathy. RETROPERITONEUM: Mild atheromatous disease. IMPRESSION: Inflammatory changes in the medial aspect of the right buttock with thickening suggestive of cellulit is. No definite abscess formation seen. Follow-up advised. Reviewed, dictated and finalized at location A. IMPRESSION: Inflammatory changes in the medial aspect of the right buttock with thickening suggestive of cellulitis. No definite abscess formation seen. Follow-up advised .
[2024-02-04 17:13] VITALS: BP 150/82; PULSE 99; RESP 20; TEMP 37.2; O2SAT 97
--- NOTE | 2024-02-04 18:07 | ED.GENADULT ---
HPI - General Adult General Chief complaint: Skin/Abscess/Foreign Body <Felipe Aquino MD - Last Filed: 02/04/24 19:44> Stated complaint: butt hurts <Felipe Aquino MD - Last Filed: 02/04/24 19:44> Time Seen by Provider: 02/04/24 18:06 <Felipe Aquino MD - Last Filed: 02/04/24 19:44> Source: patient <Felipe Aquino MD - Last Filed: 02/04/24 19:44> Mode of arrival: ambulatory <Felipe Aquino MD - Last Filed: 02/04/24 19:44> Limitations: no limitations <Felipe Aquino MD - Last Filed: 02/04/24 19:44> History of Present Illness HPI narrative: 48 YEARS OLD WHITE MALE CAME TO THE ED BY PRIVATE CAR WITH HIS DAUGHTER COMPLAINING OF PUS AND BLOOD LEAKING OUT OF POSSIBLE ABSCESS AT THE RIGHT BUTTOCK 4 WEEKS/ MONTHS, WAS SEEN IN OUR FACILITY 2023 WITHOUT SIGNIFICANT FINDING. HISTORY OF DIABETES, HYPERTENSION, HYPERLIPIDEMIA, COPD, CONGESTIVE HEART FAILURE. PATIENT DENIES ANY FEVER, CHILLS, NAUSEA, VOMITING REQUESTING A PAIN SHOT. <Felipe Aquino MD - Last Filed: 02/04/24 19:44> Related Data Home medications: Home Medications Medication Instructions Recorded Confirmed carvedilol 6.25 mg tablet 6.25 mg PO Q12H 10/18/20 10/22/23 albuterol sulfate 1.25 mg/3 mL 2.5 mg inhalation Q4H PRN 04/13/21 10/22/23 solution for nebulization Shortness Of Breath gabapentin 100 mg capsule 300 mg PO QID 04/13/21 10/22/23 losartan 25 mg tablet 50 mg PO DAILY 04/13/21 10/22/23 metformin 500 mg tablet 1,000 mg PO BID 09/16/21 10/22/23 albuterol sulfate 90 mcg/actuation 2 puff inhalation Q4-6H PRN 10/22/23 10/22/23 aerosol inhaler shortness of breath or wheezing atorvastatin 20 mg tablet 20 mg PO HS 10/22/23 10/22/23 azelastine 137 mcg (0.1 %) nasal 137 mcg intranasal BID 10/22/23 10/22/23 spray buprenorphine HCl 150 mcg buccal 150 mcg buccal Q12H 10/22/23 10/22/23 film (Belbuca) bupropion HCl 150 mg 24 hr tablet, 150 mg PO QAM 10/22/23 10/22/23 extended release buspirone 10 mg tablet 10 mg PO TID 10/22/23 10/22/23 celecoxib 200 mg capsule 200 mg PO DAILY 10/22/23 10/22/23 clonidine HCl 0.1 mg tablet 0.1 mg PO HS 10/22/23 10/22/23 doxepin 10 mg capsule 10 mg PO DAILY 10/22/23 10/22/23 duloxetine 60 mg capsule,delayed 60 mg PO HS 10/22/23 10/22/23 release fluticasone propionate 50 50 mcg intranasal DAILY 10/22/23 10/22/23 mcg/actuation nasal spray,suspension furosemide 40 mg tablet (Lasix) 40 mg PO BID 10/22/23 10/22/23 glyburide 2.5 mg tablet 2.5 mg PO DAILY 10/22/23 10/22/23 hydroxyzine pamoate 50 mg capsule 50 mg PO BID 10/22/23 10/22/23 lamotrigine 100 mg tablet 100 mg PO BID 10/22/23 10/22/23 methocarbamol 750 mg tablet 750 mg PO TID 10/22/23 10/22/23 potassium chloride 10 mEq 10 meq PO BID 10/22/23 10/22/23 tablet,extended release umeclidinium 62.5 mcg-vilanterol 1 inh inhalation PRN PRN Shortness 10/22/23 10/22/23 25 mcg/actuation powdr for Of Breath Or Wheezing inhalation (Anoro Ellipta) ziprasidone HCl 60 mg capsule 60 mg PO BID 10/22/23 10/22/23 <Felipe Aquino MD - Last Filed: 02/04/24 19:44> Allergies/adverse reactions: Allergies Allergy/AdvReac Type Severity Reaction Status Date / Time Penicillins Allergy Mild Hives Verified 01/14/24 19:06 <Felipe Aquino MD - Last Filed: 02/04/24 19:44> Review of Systems Review of Systems: All systems reviewed & are unremarkable except as noted in HPI and below <Felipe Aquino MD - Last Filed: 02/04/24 19:44> [facility] Past Medical History Medical History: Medical History Anxiety and depression Chronic obstructive pulmonary disease Chronic respiratory failure with hypoxia and hypercapnia He is on continuous oxygen during the day and uses a trilogy unit at nighttime. Gastroesophageal reflux disease Heart failure, type unknown Hypertension Obesity hypoventilation syndrome Obstructive sleep apnea Tobacco abuse Type 2 diabetes mellitus <Milton Odom
[2024-02-04 18:49] LABS: Basophils Absolute Auto 0.1 K/mm3 (0.0-0.1); Basophils Percent Auto 0.5 % (0.2-1.2); Eosinophils Absolute Auto 0.3 K/mm3 (0-0.3); Hematocrit 36.2 % (42.0-52.0); Immature Granulocyte Absolute 0.03 K/mm3 (0.00-0.031); Immature Granulocyte Percent A 0.3 % (0-0.5); Lymphocytes Absolute Auto 2.97 K/mm3 (0.9-3.2); Lymphocytes Percent Auto 29.4 % (18.3-44.2); Mean Corpuscular HGB Conc 33.1 g/dl (32-36); Mean Corpuscular Hemoglobin 30.8 pg (26-34); Mean Corpuscular Volume 92.8 fl (80-100); Mean Platelet Volume 9.7 fl (7.4-10.4); Monocytes Absolute Auto 0.6 K/mm3 (0.1-0.6); Monocytes Percent Auto 5.5 % (2.6-8.5); Neutrophils Absolute Auto 6.2 K/mm3 (1.3-6.7); Neutrophils Percent Auto 61.3 % (45.5-73.1); Platelet Count Result 217 k/mm3 (150-375); Red Cell Distribution Width 12.9 % (11.5-14.5); White Blood Count 10.1 K/mm3 (4.5-10.0)
[2024-02-04 18:51] VITALS: BP 155/84; PULSE 77; RESP 22; TEMP 36.9; O2SAT 100
[2024-02-04] MEDS: HYDROmorphone HCL INJ (*CRX) 1 MG/ML SYR 0.5 MG IV PUSH (18:57)
[2024-02-04] MEDS: ONDANSETRON INJ 4 MG/2 ML VIAL IV PUSH (18:58)
[2024-02-04 19:02] LABS: Alanine Aminotransferase 21 U/L (6-50); Albumin Level 4.1 g/dL (3.5-5.1); Alkaline Phosphatase 94 U/L (38-126); Anion Gap 7 mmol/L (4-12); Aspartate Amino Transferase 27 U/L (17-59); Bilirubin,Total 0.3 mg/dL (0.2-1.3); Blood Urea Nitrogen 16 mg/dL (9-20); Calcium 9.6 mg/dL (8.4-10.2); Carbon Dioxide 30 mmol/L (22-30); Chloride 101 mmol/L (98-107); Estimated CRCL calculation 166 ml/min; Estimated Glomerular Filt Rate > 60; Glucose 174 mg/dL (65-110); Sodium 138 mmol/L (137-145)
[2024-02-04] MEDS: KETOROLAC 30 MG/ML VIAL (*BKC) IV PUSH (20:53)
[2024-02-04] MEDS: CLINDAMYCIN HCL 150 MG CAP 300 MG PO (21:08)
[2024-02-04 21:09] VITALS: BP 152/74; PULSE 84; RESP 16; O2SAT 100
== END 2024-02-04 21:10 | disposition home or self-care (01) ==
PROVIDERS: Emergency Provider Emergency Medicine; PCP Emergency Medicine
DX: L02.31 Cutaneous abscess of buttock (principal); I50.9 Heart failure, unspecified; I11.0 Hypertensive heart disease with heart failure; E78.5 Hyperlipidemia, unspecified; E11.9 Type 2 diabetes mellitus without complications; J44.9 Chronic obstructive pulmonary disease, unspecified; J96.12 Chronic respiratory failure with hypercapnia; J96.11 Chronic respiratory failure with hypoxia; E66.2 Morbid (severe) obesity with alveolar hypoventilation; K21.9 Gastro-esophageal reflux disease without esophagitis; Z87.891 Personal history of nicotine dependence; Z79.899 Other long term (current) drug therapy; Z79.84 Long term (current) use of oral hypoglycemic drugs
CPT/HCPCS: 36415; 72193; 80053; 85025; 96374; 96375; 99284; A9270; J1171; J1885; J2405; Q9967

== ENCOUNTER 2024-02-25 11:40 | Inpatient (IN) | payer MEDICARE, MEDICAID, SELFPAY ==
[2024-02-25] VITALS (17 sets, daily range): BP systolic 150–181; BP diastolic 74–103; PULSE 68–107; RESP 12–24; TEMP 36.2–36.6; O2SAT 98–100
--- NOTE | ~2024-02-25 | XR_ITS ---
Clinical Indication: COPD AP and lateral views of the chest: Comparison: 10/21/2023 Findings: The lungs are clear, without evidence of focal consolidation or pleural effusion. Cardiome diastinal silhouette is within normal limits. Bones and soft tissues are unremarkable. Impression: Normal chest. Reviewed, dictated and finalized at location . [facility]ER Impression: Normal chest.
--- NOTE | 2024-02-25 11:43 | ECG_ITS ---
Test Date: 2024-02-25 11:47:39 Measurements Intervals [place] Rate: 67 P: 66 IL: 190 QRS: 10 QRSD: 104 T: 40 QT: 364 QTc: 385 Interpretive Statements SINUS RHYTHM VOLTAGE CRITERIA FOR LVH ST ELEVATION IN DIFFUSE LEADS- PROBABLY EARLY REPOLARIZATION BASELINE ARTIFACT- I, III, AVL BORDERLINE ECG No previous ECG available for comparison Electronically Signed On 02-25-2024 18:17:30 [employer] by César Swanson D.O.
[2024-02-25 12:09] LABS: Basophils Percent Auto 0.4 % (0.2-1.2); Eosinophils Absolute Auto 0.2 K/mm3 (0-0.3); Eosinophils Percent Auto 1.8 % (0-4.4); Hematocrit 37.5 % (42.0-52.0); Hemoglobin 12.6 g/dL (14.0-18.0); Immature Granulocyte Absolute 0.03 K/mm3 (0.00-0.031); Immature Granulocyte Percent A 0.3 % (0-0.5); Lymphocytes Absolute Auto 2.27 K/mm3 (0.9-3.2); Lymphocytes Percent Auto 23.9 % (18.3-44.2); Mean Corpuscular HGB Conc 33.6 g/dl (32-36); Mean Corpuscular Hemoglobin 30.1 pg (26-34); Mean Corpuscular Volume 89.7 fl (80-100); Mean Platelet Volume 9.3 fl (7.4-10.4); Monocytes Absolute Auto 0.4 K/mm3 (0.1-0.6); Monocytes Percent Auto 3.8 % (2.6-8.5); Neutrophils Absolute Auto 6.6 K/mm3 (1.3-6.7); Neutrophils Percent Auto 69.8 % (45.5-73.1); Platelet Count Result 229 k/mm3 (150-375); Red Blood Count 4.18 M/mm3 (4.6-6.20); Red Cell Distribution Width 13.2 % (11.5-14.5); White Blood Count 9.5 K/mm3 (4.5-10.0)
[2024-02-25 12:19] LABS: Prothrombin Time 13.9 Seconds (11.1-14.7)
[2024-02-25 12:20] LABS: Partial Thromboplastin Time 30.2 Seconds (22.3-36.8)
[2024-02-25 12:20] LABS: Alanine Aminotransferase 26 U/L (6-50); Albumin Level 4.3 g/dL (3.5-5.1); Alkaline Phosphatase 118 U/L (38-126); Anion Gap 11 mmol/L (4-12); Aspartate Amino Transferase 33 U/L (17-59); Bilirubin,Total 0.4 mg/dL (0.2-1.3); Blood Urea Nitrogen 15 mg/dL (9-20); Calcium 9.4 mg/dL (8.4-10.2); Carbon Dioxide 25 mmol/L (22-30); Chloride 101 mmol/L (98-107); Estimated Glomerular Filt Rate > 60; Glucose 151 mg/dL (65-110); Lipase 120 U/L (23-300); Potassium 3.9 mmol/L (3.4-5.0); Sodium 137 mmol/L (137-145)
[2024-02-25 12:31] LABS: NT Pro B Type Natriuretic Pept 59 pg/mL (19.9-100); Troponin I < 0.012 ng/mL (0.000-0.034)
[2024-02-25 12:52] LABS: Add Urine Microscopic? YES; Appearance Urine Clear (Clear); Bacteria Urine None Seen /hpf; Bilirubin Urine Negative (Negative); Blood Urine Negative (Negative); Color Urine Yellow (Yellow); Glucose Urine UA 1+ mg/dL (Negative); Ketones Urine Trace mg/dL (Negative); Leukocyte Esterase Ur Negative LEU/UL (Negative); Nitrate Urine Negative (Negative); Non Pathogenic Casts 0-2; Protein Urine 1+ mg/dL (Negative); RBC Urine 0-2 /hpf (0-2); Specific Grav Ur 1.032 (1.001-1.035); Squamous Epithelial Cell Urine None Seen /hpf (Few); Urobilinogen Urine 0.2 mg/dL (<2.0); WBC Urine 0-5 /hpf (0-3)
[2024-02-25 13:03] LABS: Procalcitonin 0.1 ng/mL
[2024-02-25] MEDS: IPRATROPIUM 0.5 MG/ALBUTEROL SULFATE 2.5 MG AMPUL.NEB 3 ML INHALATION ×2 (13:10→19:56)
[2024-02-25 13:23] LABS: Influenza A QL RT-PCR Negative (Negative); Influenza B QL RT-PCR Negative (Negative); RSV RNA, RT-PCR Negative (Negative); SARS-CoV-2 RNA PCR Negative (Negative)
[2024-02-25] MEDS: methylPREDNISolone SOD SUCC 125 MG VIAL IV PUSH (13:38)
--- NOTE | 2024-02-25 13:58 | ED.GENADULT ---
HPI - General Adult General Chief complaint: Shortness of Breath/Dyspnea Stated complaint: DYSPMEA Time Seen by Provider: 02/25/24 11:44 History of Present Illness HPI narrative: patient 48-year-old gentleman who presents emergency department with chief complaint of shortness of breath. The patient reports that he has history of congestive heart failure also history of asthma and COPD the patient states he was seen at [facility] last night told that he had a CHF flare. The patient reports he had a CT angiography of chest to evaluate for possible pulmonary embolism. The patient reports this was negative and told to have a increased dose of Lasix of 60 mg. EMS was called and the patient was transported by [facility] to give the patient a nebulizer of albuterol and then gave the patient epinephrine in route. Patient reports he still feels short of breath reports he still wheezing. Related Data Home Medications Medication Instructions Recorded Confirmed carvedilol 6.25 mg tablet 6.25 mg PO Q12H 10/18/20 02/25/24 albuterol sulfate 1.25 mg/3 mL 2.5 mg inhalation Q4H PRN 04/13/21 02/25/24 solution for nebulization Shortness Of Breath gabapentin 100 mg capsule 300 mg PO QID 04/13/21 02/25/24 losartan 25 mg tablet 50 mg PO DAILY 04/13/21 02/25/24 metformin 500 mg tablet 1,000 mg PO BID 09/16/21 02/25/24 albuterol sulfate 90 mcg/actuation 2 puff inhalation Q4-6H PRN 10/22/23 02/25/24 aerosol inhaler shortness of breath or wheezing atorvastatin 20 mg tablet 80 mg PO HS 10/22/23 02/25/24 azelastine 137 mcg (0.1 %) nasal 137 mcg intranasal BID 10/22/23 02/25/24 spray buprenorphine HCl 150 mcg buccal 150 mcg buccal Q12H 10/22/23 02/25/24 film (Belbuca) bupropion HCl 150 mg 24 hr tablet, 150 mg PO QAM 10/22/23 02/25/24 extended release buspirone 10 mg tablet 10 mg PO TID 10/22/23 02/25/24 celecoxib 200 mg capsule 200 mg PO DAILY 10/22/23 02/25/24 clonidine HCl 0.1 mg tablet 0.1 mg PO HS 10/22/23 02/25/24 doxepin 10 mg capsule 10 mg PO DAILY 10/22/23 02/25/24 duloxetine 60 mg capsule,delayed 60 mg PO HS 10/22/23 02/25/24 release fluticasone propionate 50 50 mcg intranasal DAILY 10/22/23 02/25/24 mcg/actuation nasal spray,suspension furosemide 40 mg tablet (Lasix) 40 mg PO BID 10/22/23 02/25/24 glyburide 2.5 mg tablet 2.5 mg PO DAILY 10/22/23 02/25/24 hydroxyzine pamoate 50 mg capsule 50 mg PO BID 10/22/23 02/25/24 lamotrigine 100 mg tablet 100 mg PO BID 10/22/23 02/25/24 methocarbamol 750 mg tablet 750 mg PO TID 10/22/23 02/25/24 potassium chloride 10 mEq 10 meq PO BID 10/22/23 02/25/24 tablet,extended release umeclidinium 62.5 mcg-vilanterol 1 inh inhalation PRN PRN Shortness 10/22/23 02/25/24 25 mcg/actuation powdr for Of Breath Or Wheezing inhalation (Anoro Ellipta) ziprasidone HCl 60 mg capsule 80 mg PO BID 10/22/23 02/25/24 budesonide 160 mcg-glycopyr 9 inh inhalation 02/25/24 mcg-formot 4.8 mcg/actuation HFA inhaler (Breztri Aerosphere) tirzepatide 5 mg/0.5 mL 5 mg subcut WE 02/25/24 02/25/24 subcutaneous pen injector (Mounjaro) Allergies Allergy/AdvReac Type Severity Reaction Status Date / Time Penicillins Allergy Mild Hives Verified 02/25/24 13:38 Review of Systems Review of Systems: A 10 system review of systems was completed on the patient and is negative except for what is stated in the HPI. Nursing and ancillary documentation was reviewed. [facility] Past Medical History Medical History Anxiety and depression Chronic obstructive pulmonary disease Chronic respiratory failure with hypoxia and hypercapnia He is on continuous oxygen during the day and uses a trilogy unit at nighttime. Gastroesophageal reflux disease Heart failure, type unknown Hypertension Obesity hypoventilation syndrome Obstructive sleep apnea Tobacco abuse Type 2 diabetes mellitus Surgical History Surgical History History of cardiac catheterization No intervention. History of hernia repair History of tonsillectomy Family History Family History Father Diabetes mellitus Other Acute myocardial infarction Social History Social History Social History: Patient is and lives with his and children and [place]. He smoked about a pack of cigarettes a day for 32 years and quit in January 2021. He drinks alcohol rarely and in moderation. Occasional marijuana use, typically in the form of edibles. He designates his , Candie Leahy, as his surrogate decision maker and he wishes to be a full code. Smoking packs per day: 2 Smoking cigarettes per day: 40.0 Years smoked: 21 Smoking pack-years: 42.00 Smoking status: Former smoker Tobacco type: cigarettes Second hand tobacco smoke exposure: Yes Smoking end date: 02/24/21 Alcohol intake: never Do You Feel Safe in your Home?: Yes Lack of Transportation: No Lack of Food: Never True Current Housing: I Have Housing Concerned About Future Housing: No Difficulty Paying Gas/Electric Bills: No Difficulty Paying for Meds: No Currently Unemployed: No Education: High School Diploma/GED Difficulty w/ Childcare or Family Care: No Spiritual care concerns: No Exam Narrative: GENERAL: Well-appearing, well-nourished, and in no acute distress. HEAD: Normocephalic, atraumatic. EYES: PERRLA and EOMI. ENT: Nares clear, no rhinorrhea or epistaxis. Mucous membranes moist. NECK: Supple. CHEST: wheezing to auscultation bilateral. No respiratory distress. HEART: Regular rate and rhythm. No murmur heard. Normal peripheral pulses. ABDOMEN: Soft, nontender, nondistended, normal active bowel sounds. EXTREMITIES: Normal range of motion. No edema. SKIN: Warm, dry, no rash. NEURO: No focal deficits. Alert and oriented x3. PSYCH: Normal mood and affect. Course Vital Signs Vital signs: Vital Signs Pulse Oximetry 99 02/25/24 12:09 Oxygen Delivery Room Air 11/10/24 12:09 Pulse Rate 82 02/25/24 13:20 Respiratory Rate 18 02/25/24 13:20 Blood Pressure 157/81 H 02/25/24 13:01 Pulse Oximetry 99 02/25/24 13:41 Oxygen Delivery Room Air 02/25/24 13:41 Medical Decision Making MDM Narrative Medical decision making narrative: differential diagnosis includes pneumonia, CHF, asthma/COPD laboratory studies were obtained on the patient showed normal CBC normal CMP troponin was negative BNP was within normal limits chest x-ray showed no focal infiltrate. Patient received steroids and DuoNeb in the emergency department. The patient is still having symptoms of the plan will be to admit the patient for observation Vital Signs Vital Signs: Vital Signs Pulse Oximetry 99 02/25/24 12:09 Oxygen Delivery Room Air 02/25/24 12:09 Pulse Rate 82 02/25/24 13:20 Respiratory Rate 18 02/25/24 13:20 Blood Pressure 157/81 H 02/25/24 13:01 Pulse Oximetry 99 02/25/24 13:41 Oxygen Delivery Room Air 02/25/24 13:41 Lab Data 02/25/24 12:03 02/25/24 12:03 Labs: Lab Results 02/25/24 02/25/24 02/25/24 Range/Units 12:02 12:03 12:41 WBC 9.5 (4.5-10.0) K/mm3 RBC 4.18 L (4.6-6.20) M/mm3 Hgb 12.6 L (14.0-18.0) g/dL Hct 37.5 L (42.0-52.0) % MCV 89.7 (80-100) fl MCH 30.1 (26-34) pg MCHC 33.6 (32-36) g/dl RDW 13.2 (11.5-14.5) % Plt Count 229 (150-375) k/mm3 MPV 9.3 (7.4-10.4) fl Immature Gran % (Auto) 0.3 (0-0.5) % Neut % (Auto) 69.8 (45.5-73.1) % Lymph % (Auto) 23.9 (18.3-44.2) % [place] % (Auto) 3.8 (2.6-8.5) % Eos % (Auto) 1.8 (0-4.4) % Baso % (Auto) 0.4 (0.2-1.2) % Lymph # (Auto) 2.27 (0.9-3.2) K/mm3 [place] # (Auto) 0.4 (0.1-0.6) K/mm3 Eos # (Auto) 0.2 (0-0.3) K/mm3 Baso # (Auto) 0.0 (0.0-0.1) K/mm3 Abs Immat Gran (auto) 0.03 (0.00-0.031) K/mm3 Absolute Neuts (auto) 6.6 (1.3-6.7) K/mm3 Absolute Nucleated RBC 0.000 (0.0-0.012) K/mm3 Nucleated RBC % 0.0 (0.0-0.2) % PT 13.9 (11.1-14.7) Seconds INR 1.0 APTT 30.2 (22.3-36.8) Seconds Sodium 137 (137-145) mmol/L Potassium 3.9 (3.4-5.0) mmol/L Chloride 101 (98-107) mmol/L Carbon Dioxide 25 (22-30) mmol/L Anion Gap 11 (4-12) mmol/L BUN 15 (9-20) mg/dL Creatinine 0.70 (0.7-1.3) mg/dL Estim Creat Clear Calc Not Reportable Estimated GFR > 60 (59 - ) Glucose 151 H (65-110) mg/dL Calcium 9.4 (8.4-10.2) mg/dL Magnesium 2.0 (1.6-2.3) mg/dL Total Bilirubin 0.4 (0.2-1.3) mg/dL AST 33 (17-59) U/L ALT 26 (6-50) U/L Alkaline Phosphatase 118 (38-126) U/L Troponin I < 0.012 (0.000-0.034) ng/mL NT-Pro-B Natriuret Pep 59 (19.9-100) pg/mL Total Protein 8.0 (6.3-8.2) g/dL Albumin 4.3 (3.5-5.1) g/dL Lipase 120 (23-300) U/L Procalcitonin 0.1 ng/mL Urine Color Yellow (Yellow) Urine Appearance Clear (Clear) Urine pH 8.0 (5.0-9.0) Ur Specific Flynn 1.032 (1.001-1.035) Urine Protein 1+ H (Negative) mg/dL Urine Glucose (UA) 1+ H (Negative) mg/dL Urine Ketones Trace H (Negative) mg/dL Ur Blood (Man) Negative (Negative) Urine Nitrate Negative (Negative) Urine Bilirubin Negative (Negative) Urine Urobilinogen 0.2 (<2.0) mg/dL Leukocyte Esterase Rfl Negative (Negative) PK/UL Urine RBC 0-2 (0-2) /hpf Urine WBC 0-5 (0-3) /hpf Ur Squamous Epith Cells None seen (Few) /hpf Urine Bacteria None seen /hpf Urine Casts 0-2 Influenza A (RT-PCR) Negative (Negative) Influenza B (RT-PCR) Negative (Negative) RSV (RT-PCR) Negative (Negative) SARS-CoV-2 RNA (RT-PCR) Negative (Negative) Discharge Plan Discharge Clinical Impression: COPD (chronic obstructive pulmonary disease), Acute exacerbation of chronic obstructive pulmonary disease Patient Disposition: Still a Patient Condition: Stable Prescriptions: No Action celecoxib 200 mg Capsule 200 mg PO DAILY Rx Instructions: Take with meals clonidine HCl 0.1 mg Tablet 0.1 mg PO HS atorvastatin 20 mg Tablet 80 mg PO HS hydroxyzine pamoate 50 mg Capsule 50 mg PO BID potassium chloride 10 mEq Tablet Extended Release 10 meq PO BID doxepin 10 mg Capsule 10 mg PO DAILY methocarbamol 750 mg Tablet 750 mg PO TID buspirone 10 mg Tablet 10 mg PO TID Rx Instructions: Take TID for 90 days azelastine 137 mcg (0.1 %) Alpine,Non-Aerosol 137 mcg INTRANASAL BID Rx Instructions: Administer 2 puffs into each nostril ziprasidone HCl 60 mg Capsule 80 mg PO BID Rx Instructions: give with food (meal/snack) fluticasone propionate 50 mcg/actuation Alpine,Suspension 50 mcg intranasal DAILY lamotrigine 100 mg Tablet 100 mg PO BID Rx Instructions: Take BID for 90 days bupropion HCl 150 mg Tablet Extended Release 24 Hr 150 mg PO QAM Rx Instructions: Take daily with meals duloxetine 60 mg Capsule,Delayed Release(Dr/Ec) 60 mg PO HS Anoro Ellipta 62.5-25 mcg/actuation Blister With Device 1 inh INHALATION PRN PRN (Reason: Shortness Of Breath Or Wheezing) buprenorphine HCl [Belbuca] 150 mcg Film 150 mcg BUCCAL Q12H furosemide [Lasix] 40 mg tablet 40 mg PO BID albuterol sulfate 90 mcg/actuation HFA aerosol inhaler 2 puff inhalation Q4-6H PRN (Reason: shortness of breath or wheezing) glyburide 2.5 mg tablet 2.5 mg PO DAILY Jardiance 10 mg Tablet 10 mg PO DAILY 30 Days Qty: 30 0RF insulin glargine [Lantus Solostar U-100 Insulin] 100 unit/mL (3 mL) insulin pen 30 unit subcut QPM Qty: 15 1RF (DME) pen needle, diabetic 29 gauge x 1/2 needle See Rx Instructions .Route Qty: 100 0RF Rx Instructions: As directed insulin lispro [Humalog Bart KwikPen U-100] 100 unit/mL insulin pen, half-unit 1 sliding scale dose subcut USEASDIRECTD PRN (Reason: hyperglycemia) Qty: 15 1RF Rx Instructions: three times a day before meals glucose <200 no additional insulin glucose 201-250 3units glucose 251-300 4units glucose 301-350 5units glucose 351-400 6units glucose >400 call MD. max daily dose 18 units carvedilol 6.25 mg tablet 6.25 mg PO Q12H albuterol sulfate 1.25 mg/3 mL Solution For Nebulization 2.5 mg INHALATION Q4H PRN (Reason: Shortness Of Breath) losartan 25 mg Tablet 50 mg PO DAILY gabapentin 100 mg Capsule 300 mg PO QID metformin 500 mg tablet 1,000 mg PO BID Breztri Aerosphere 160-9-4.8 mcg/actuation HFA aerosol inhaler INHALATION Mounjaro 5 mg/0.5 mL pen injector 5 mg SUBCUT WE Follow-up/Referrals: Akanksha,Marilee Galdamez MD [Primary Care Provider] - Time of Disposition: 14:02
--- NOTE | 2024-02-25 14:43 | PC.NURSE ---
This patient, Jerzy Leahy, was admitted to Medical Room 241-. Patient/family oriented to hospital policies and general routines including ID bracelet, bed and alarms, visiting hours, pain management, procedures, bathroom and other care routines, personal items, smoking policy, room service/diet, and visiting hours. Information on how to activate the Rapid Response Team has been discussed. Patient/Family are encouraged to report perceived risks to care and to ask questions if they do not understand what they are told or what they should do.
--- NOTE | 2024-02-25 14:45 | P.HP_ITS ---
H&P: HPI History of Present Illness Date/Time: 02/25/24 14:45 Chief Complaint: Shortness of breath. Narrative: This is a 48-year-old male with chronic obstructive pulmonary disease, chronic respiratory failure on p.r.n. home oxygen, obstructive sleep apnea on trilogy, heart failure with preserved ejection fraction, insulin-dependent type 2 diabetes mellitus, and hypertension presented to the emergency department for evaluation of shortness of breath. The patient provides the following history. He gives a several day history of increasing shortness of breath and tells me it feels as though he is not able to take in a deep breath. He also reports pretty significant wheezing for which he has been using his nebulizers without much benefit. Last night he was seen in the emergency department at [facility] where he had a CTA of the chest which was reportedly normal. He was told that he likely had a CHF flare and he was told to increase his Lasix dose to 60 mg a day. His symptoms have continued and he called 911 to bring him to here. En route to the hospital he was given a nebulizer treatment and apparently 1 mg of epinephrine. He denies fever, chills, sweats, syncope, near syncope, chest pain, pleuritic pain, palpitations, Paroxysmal nocturnal dyspnea, lower extremity edema, calf pain, abdominal pain, nausea, vomiting, urticaria, and angioedema. He also denies sick contacts. In the ED: Vitals on arrival include a blood pressure of 181/74, pulse 60, respiratory rate 18, SpO2 98% on room air. CMP and CBC were pretty unremarkable. Troponin and BNP were within normal limits. He tested negative for influenza, RSV, and COVID. Chest x-ray was clear. He was given a nebulizer treatment and methylprednisolone 125 mg But does not report much improvement and he is being admitted in this setting for further treatment. Review of Systems Review of Systems: 12 systems were reviewed and are negativ e except for as per HPI. FOR[facility]LY [facility] Past Medical History Medical History Anxiety and depression Chronic obstructive pulmonary disease Chronic respiratory failure with hypoxia and hypercapnia he is on p.r.n. oxygen during the day and uses a trilogy unit with at nighttime Dyslipidemia Gastroesophageal reflux disease Heart failure with preserved ejection fraction echo pain 04/05/2020 showed a severely enlarged left ventricular chamber with an EF at the low end of normal estimated 50 to 55%, abnormal diastolic function, and mild pulmonary hypertension Hypertension Obesity hypoventilation syndrome Obstructive sleep apnea Tobacco abuse Type 2 diabetes mellitus Surgical History Surgical History History of cardiac catheterization no intervention History of hernia repair History of tonsillectomy Family History Family History Father Diabetes mellitus Other Acute myocardial infarction Social History Social History Social History: Surrogate medical decision maker: Candie Leahy, . Code status: Full code. Smoking packs per day: 2 Smoking cigarettes per day: 40.0 Years smoked: 21 Smoking pack-years: 42.00 Smoking status: Former smoker Tobacco type: cigarettes Second hand tobacco smoke exposure: Yes Smoking end date: 02/24/21 Alcohol intake: never Substance use: current Substance use type: marijuana Do You Feel Safe in your Home?: Yes Lack of Transportation: No Lack of Food: Sometimes True Current Housing: I Have Housing Concerned About Future Housing: No Difficulty Paying Gas/Electric Bills: No Difficulty Paying for Meds: No Currently Unemployed: No Education: Trade/Vocational Certificate Difficulty w/ Childcare or Family Care: No Spiritual care concerns: No Meds Home Medications and Allergies Home Medications Medication Instructions Recorded Confirmed Type carvedilol 6.25 mg tablet 6.25 mg PO Q12H 10/18/20 02/25/24 History albuterol sulfate 1.25 mg/3 mL 2.5 mg inhalation Q4H PRN 04/13/21 02/25/24 History solution for nebulization Shortness Of Breath gabapentin 100 mg capsule 300 mg PO QID 04/13/21 02/25/24 History losartan 25 mg tablet 50 mg PO DAILY 04/13/21 02/25/24 History metformin 500 mg tablet 1,000 mg PO BID 09/16/21 02/25/24 History albuterol sulfate 90 mcg/actuation 2 puff inhalation Q4-6H PRN 10/22/23 02/25/24 History aerosol inhaler shortness of breath or wheezing atorvastatin 20 mg tablet 80 mg PO HS 10/22/23 02/25/24 History azelastine 137 mcg (0.1 %) nasal 137 mcg intranasal BID 10/22/23 02/25/24 History spray buprenorphine HCl 150 mcg buccal 150 mcg buccal Q12H 10/22/23 02/25/24 History film (Bel[place]uca) bupropion HCl 150 mg 24 hr tablet, 150 mg PO QAM 10/22/23 02/25/24 History extended release buspirone 10 mg tablet 10 mg PO TID 10/22/23 02/25/24 History celecoxib 200 mg capsule 200 mg PO DAILY 10/22/23 02/25/24 History clonidine HCl 0.1 mg tablet 0.1 mg PO HS 10/22/23 02/25/24 History doxepin 10 mg capsule 10 mg PO DAILY 10/22/23 02/25/24 History duloxetine 60 mg capsule,delayed 60 mg PO HS 10/22/23 02/25/24 History release fluticasone propionate 50 50 mcg intranasal DAILY 10/22/23 02/25/24 History mcg/actuation nasal spray,suspension furosemide 40 mg tablet (Lasix) 40 mg PO BID 10/22/23 02/25/24 History glyburide 2.5 mg tablet 2.5 mg PO DAILY 10/22/23 02/25/24 History hydroxyzine pamoate 50 mg capsule 50 mg PO BID 10/22/23 02/25/24 History lamotrigine 100 mg tablet 100 mg PO BID 10/22/23 02/25/24 History methocarbamol 750 mg tablet 750 mg PO TID 10/22/23 02/25/24 History potassium chloride 10 mEq 10 meq PO BID 10/22/23 02/25/24 History tablet,extended release umeclidinium 62.5 mcg-vilanterol 1 inh inhalation PRN PRN Shortness 10/22/23 02/25/24 History 25 mcg/actuation powdr for Of Breath Or Wheezing inhalation (Anoro Ellipta) ziprasidone HCl 60 mg capsule 60 mg PO BID 10/22/23 02/25/24 History empagliflozin 10 mg tablet 10 mg PO DAILY 30 days #30 tabs 10/23/23 02/25/24 Rx (Jardiance) insulin glargine 100 unit/mL (3 30 unit (0.3 mL) subcut QPM #15 mL 10/23/23 02/25/24 Rx mL) subcutaneous pen (Lantus Solostar U-100 Insulin) insulin lispro 100 unit/mL 1 sliding scale dose subcut 10/23/23 02/25/24 Rx subcutaneous half-unit pen USEASDIRECTD PRN hyperglycemia #15 (Humalog Bart KwikPen (U-100)) mL pen needle, diabetic 29 gauge x #100 ea 10/23/23 02/25/24 Rx 1/2 aspirin 81 mg tablet,delayed 81 mg PO DAILY 02/25/24 02/25/24 History release budesonide 160 mcg-glycopyr 9 2 inh inhalation BID 02/25/24 02/25/24 History mcg-formot 4.8 mcg/actuation HFA inhaler (Breztri Aerosphere) glipizide 5 mg tablet 5 mg PO DAILY 02/25/24 02/25/24 History tirzepatide 5 mg/0.5 mL 2.5 mg subcut WE 02/25/24 02/25/24 History subcutaneous pen injector (Heath) ziprasidone HCl 80 mg capsule 80 mg PO HS 02/25/24 02/25/24 History Allergies Allergy/AdvReac Type Severity Reaction Status Date / Time Penicillins Allergy Mild Hives Verified 02/25/24 13:38 Vital Signs Vital Signs - 24 hr 02/25/24 12:09 02/25/24 13:01 02/25/24 13:10 Pulse Rate 83 80 Respiratory Rate 18 18 Blood Pressure 157/81 H Pulse Oximetry 99 99 Oxygen Delivery Room Air 02/25/24 13:20 02/25/24 13:41 02/25/24 11:47 Pulse Rate 82 68 Respiratory Rate 18 18 Blood Pressure 181/74 H Pulse Oximetry 99 98 Oxygen Delivery Room Air 02/25/24 11:57 02/25/24 12:01 02/25/24 13:02 Pulse Rate 84 83 87 Respiratory Rate 18 20 16 Blood Pressure 168/94 H 157/103 H 157/81 H Pulse Oximetry 99 98 Oxygen Delivery 02/25/24 14:01 Pulse Rate 76 Respiratory Rate 12 Blood Pressure 150/74 H Pulse Oximetry 98 Oxygen Delivery Exam Narrative: General: Chronically ill-appearing male sitting up in bed. Weight: 184.3 kg. BMI: 55.1. HEENT: PERRL, EOMI. Sclera anicteric. Edentulous. Moist mucous membranes. Neck: Supple. Exam limited due to neck circumference. No obvious JVD or lymphadenopathy. Respiratory: Respirations are nonlabored and he is speaking in full sentences. Lung sounds are diminished throughout with both inspiratory and expiratory wheezing. Occasional wet sounding cough which he states is nonproductive. Cardiovascular: Regular rate and rhythm with S1-S2. Gastrointestinal: Abdomen is soft, morbidly obese, nontender, and nondistended with positive bowel sounds. Skin: Warm and dry. Chronic skin changes of the lower legs bilaterally. Extremities: No cyanosis or clubbing. Trace gabrielle ankle edema bilaterally. Radial and pedal pulses intact. No palpable knots or cords. Negative Drea sign bilaterally. Neurological: Alert. Cranial nerves 2-12 are grossly intact. No gross focal deficits to casual conversation. Psychiatric: Pleasant and cooperative with normal mood and affect. H&P: Results Labs Labs: Short CBC 02/25/24 Range/Units 12:03 WBC 9.5 (4.5-10.0) K/mm3 Hgb 12.6 L (14.0-18.0) g/dL Hct 37.5 L (42.0-52.0) % Plt Count 229 (150-375) k/mm3 BMP 02/25/24 12:03 Sodium 137 Potassium 3.9 Chloride 101 Carbon Dioxide 25 BUN 15 Creatinine 0.70 Glucose 151 H Calcium 9.4 Cardiac Enzymes 02/25/24 Range/Units 12:03 Troponin I < 0.012 (0.000-0.034) ng/mL Liver Function 02/25/24 Range/Units 12:03 Total Bilirubin 0.4 (0.2-1.3) mg/dL AST 33 (17-59) U/L ALT 26 (6-50) U/L Alkaline Phosphatase 118 (38-126) U/L Albumin 4.3 (3.5-5.1) g/dL Urine 02/25/24 Range/Units 12:41 Urine Color Yellow (Yellow) Urine Appearance Clear (Clear) Urine pH 8.0 (5.0-9.0) Ur Specific [place] 1.032 (1.001-1.035) Urine Protein 1+ H (Negative) mg/dL Urine Glucose (UA) 1+ H (Negative) mg/dL Imaging Chest X-Ray 02/25/24 12:35 Impression: Normal chest. Assessment and Plan Assessment and plan (1) Acute exacerbation of chronic obstructive pulmonary disease: Code(s): J44.1 - Chronic obstructive pulmonary disease with (acute) exacerbation Status: Acute (2) Chronic respiratory failure with hypoxia: Code(s): J96.11 - Chronic respiratory failure with hypoxia Status: Acute (3) Heart failure with preserved ejection fraction: Code(s): I50.30 - Unspecified diastolic (congestive) heart failure Status: Acute (4) Obstructive sleep apnea: Code(s): G47.33 - Obstructive sleep apnea (adult) (pediatric) Status: Acute (5) Type 2 diabetes mellitus: Code(s): E11.9 - Type 2 diabetes mellitus without complications Status: Acute (6) Hypertension: Qualifiers: Hypertension type: primary hypertension Qualified Code(s): I10 - Essential (primary) hypertension Code(s): I10 - Essential (primary) hypertension Status: Chronic (7) Dyslipidemia: Code(s): E78.5 - Hyperlipidemia, unspecified Status: Acute Plan The patient presented to the emergency department for evaluation of shortness of breath as detailed in HPI. Clinically he has a COPD exacerbation and has been started on scheduled bronchodilators and Solu-Medrol. Cough is nonproductive but sounds wet and he has been started Mucinex and PEP therapy to help mobilize secretions. Hold on antibiotics for now. He is on p.r.n. oxygen at home and is on 2 L at this. There is no evidence to suggest CHF exacerbation. Patient may use his trilogy unit from home overnight and with naps. Continue basal insulin. Initiate sliding scale insulin, Accu-Cheks, and hypoglycemic protocol. Monitor glucose closely as he is receiving steroids. Blood pressures were reviewed and they are reasonable. His medications will be reviewed and resumed as appropriate. Findings and treatment plan were discussed with the patient. Questions were solicited and answered to satisfaction. The patient's medical management will be taken over by the hospitalist team in a.m. Quality VTE Prophylaxis VTE prophylaxis: pharmacologic ordered The patient has been admitted under observation status. Hospitalist MIPS Advance Care Plan I have confirmed that the patient's Advanced Care Plan is present, code status is documented, or surrogate decision maker is listed in patient medical record.: Yes Medication Reconciliation I have utilized all available resources to obtain, update and review the patien ts current medications (includes all prescriptions, OTC, herbals, cannabis, and nutritional supplements).: Yes
[2024-02-25 15:31] LABS: Troponin I < 0.012 ng/mL (0.000-0.034)
[2024-02-25 16:21] LABS: Hemoglobin A1C 7.7 % (<5.7)
[2024-02-25 17:03] LABS: Glucose Point of Care 195 mg/dl (65-105)
--- NOTE | 2024-02-25 17:23 | PC.NURSE ---
Edge Gluer spoke with Daughter Aminata Leahy who review medications bottles with field underwriter over the phone
[2024-02-25] MEDS: AZELASTINE HCL NASAL 0.1% 137 MCG/SPR 30 ML BTL 2 SPRAY NASAL (17:48)
[2024-02-25] MEDS: FUROSEMIDE 40 MG TABLET PO (17:49)
[2024-02-25] MEDS: busPIRone HCL 10 MG TABLET PO (17:49)
[2024-02-25] MEDS: GABAPENTIN 300 MG CAPSULE PO ×2 (17:50→21:38)
[2024-02-25] MEDS: metFORMIN HCL 500 MG TABLET 1000 MG PO (17:50)
[2024-02-25] MEDS: ZIPRASIDONE HCL 20 MG CAPSULE 60 MG PO (17:51)
[2024-02-25] MEDS: ACETAMINOPHEN 325 MG TABLET 650 MG PO (17:52)
[2024-02-25] MEDS: INSULIN GLARGINE (*BKC) 100 UNITS/ML 30 UNITS SUB-Q (17:53)
--- NOTE | 2024-02-25 18:49 | PC.NURSE ---
Patient's medication list looked over and updated to reflect what patient currently takes. Spoke with provider JAMILAH Miller multiple times regarding updated list.
[2024-02-25 20:50] LABS: Glucose Point of Care 289 mg/dl (65-105)
[2024-02-25] MEDS: hydrOXYzine pamoate 25 MG CAPSULE 50 MG PO (21:37)
[2024-02-25] MEDS: ATORVASTATIN 40 MG TABLET 80 MG PO (21:37)
[2024-02-25] MEDS: ZIPRASIDONE HCL 80 MG CAPSULE PO (21:37)
[2024-02-25] MEDS: methocarbamoL 750 MG TABLET PO (21:37)
[2024-02-25] MEDS: guaiFENesin 12 HR 600 MG TABCR 1200 MG PO (21:37)
[2024-02-25] MEDS: lamoTRIgine 100 MG TABLET PO (21:38)
[2024-02-25] MEDS: carvediloL 6.25 MG TABLET PO (21:38)
[2024-02-25] MEDS: DULoxetine HCL 60 MG CAPSULE.DR PO (21:38)
[2024-02-25] MEDS: INSULIN ASPART (*BKC) 100 UNITS/ML SUB-Q (21:39)
[2024-02-25] MEDS: methylPREDNISolone SOD SUCC 125 MG VIAL 60 MG IV PUSH (21:39)
[2024-02-26] VITALS (16 sets, daily range): BP systolic 141–166; BP diastolic 57–95; PULSE 59–98; RESP 16–22; TEMP 36.6–36.9; O2SAT 89–99
[2024-02-26] MEDS: IPRATROPIUM 0.5 MG/ALBUTEROL SULFATE 2.5 MG AMPUL.NEB 3 ML INHALATION ×4 (01:48→19:25)
[2024-02-26] MEDS: methylPREDNISolone SOD SUCC 125 MG VIAL 60 MG IV PUSH (05:07)
[2024-02-26] MEDS: methocarbamoL 750 MG TABLET PO ×3 (05:07→20:19)
[2024-02-26 05:44] LABS: Anion Gap 11 mmol/L (4-12); Blood Urea Nitrogen 18 mg/dL (9-20); Calcium 9.2 mg/dL (8.4-10.2); Carbon Dioxide 22 mmol/L (22-30); Chloride 102 mmol/L (98-107); Estimated CRCL calculation 189 ml/min; Estimated Glomerular Filt Rate > 60; Glucose 247 mg/dL (65-110); Potassium 4.5 mmol/L (3.4-5.0); Sodium 135 mmol/L (137-145)
--- NOTE | 2024-02-26 07:37 | P.PNIM_ITS ---
Progress Note: A&P Assessment and Plan (1) Chronic respiratory failure with hypoxia: Code(s): J96.11 - Chronic respiratory failure with hypoxia Status: Acute Assessment and Plan: Likely secondary to COPD exacerbation * Chest x-ray negative * Respiratory panel negative for Influenza A and B, COVID, RSV * Wean O2 for a saturation greater than 92% (2) Acute exacerbation of chronic obstructive pulmonary disease: Code(s): J44.1 - Chronic obstructive pulmonary disease with (acute) exacerbation Status: Acute Assessment and Plan: * Continue Solu-medrol however will decrease to 40 mg BID * Continue Duonebs * Continue Breztri inhaler * Continue Flonase * Chest PT ordered QID (3) Heart failure with preserved ejection fraction: Code(s): I50.30 - Unspecified diastolic (congestive) heart failure Status: Chronic Assessment and Plan: * Echo reviewed and shown normal LV systolic function with an estimated EF of 50-55%, mild pulmonary hypertension with an estimated pulmonary arterial systolic pressure of 37mmhg, RV systolic function was normal. * Continue Lasix 40mg BID, home dose * Pro BNP 59 (4) Obstructive sleep apnea: Code(s): G47.33 - Obstructive sleep apnea (adult) (pediatric) Status: Chronic Assessment and Plan: * Continue C pap (5) Type 2 diabetes mellitus: Code(s): E11.9 - Type 2 diabetes mellitus without complications Status: Chronic Assessment and Plan: * Blood sugars ranging 195-289 * Hgb A1C 7.7 which is down from > 14.0 on 10/21/23 * Accu checks AC/HS * High dose SSI ordered * Continue Lantus 30units @hs * Continue Jardiance * hypoglycemic protocol in place * Diabetic diet ordered * Hold metformin and glipizide (6) Hypertension: Qualifiers: Hypertension type: primary hypertension Qualified Code(s): I10 - Essential (primary) hypertension Code(s): I10 - Essential (primary) hypertension Status: Chronic Assessment and Plan: * Blood pressure ranging * continue Losartan (7) Dyslipidemia: Code(s): E78.5 - Hyperlipidemia, unspecified Status: Acute Assessment and Plan: * Continue aspirin and atorvastatin Time Spent With Patient Time with patient: Greater than 35 minutes Subjective Date/time seen: 02/26/24 07:37 Interval history: Interval history: This is a 47 year old male who presented to the hospital on 02/26/24 for evaluation of acute respiratory failure with hypoxia secondary to COPD exacerbation. Work up in the hospital included a chest xray which was normal. Initial labs revealed a hgb 12.6, hgb A1C 7.7, BG ranging 151-289, troponin negative, pro BNP 59, pro calcitonin 0.1. UA was obtained and shown 1+ protein, 1+ glucose, trace ketones, otherwise unremarkable. Respiratory panel was negative for influenza A and B, RSV, COVID. EKG shown NSR with a rate of 67, QTc 385. Patient was placed on 2L NC, given Duoneb, 125mg of IVP Solu-Medrol while in the ER. Subjective: Patient states he overall is feeling better since he has been here. He states that he is able to tolerate his Cpap machine. At first he was not able to tolerate the pressure setting. He denies any fever, chills, nausea, vomiting, diarrhea, abdominal pain, chest pain, or shortness of breath. He states that he has inhalers, home oxygen, nebulizer with duonebs at home already. Labs and i maging reviewed. Review of Systems Review of Systems: 12 systems were reviewed and are negativ e except for as per HPI. All systems reviewed & are unremarkable except as noted in HPI and below Constitutional: Constitutional: Reports as per HPI and Reports no additional constitutional complaints Eyes: Eyes: Reports as per HPI and Reports no additional eye complaints ENT: Reports system reviewed and no additional complaints, except as documented and Reports as per HPI Cardiovascular: Cardiovascular: Reports as per HPI and Reports no additional cardiovascular complaints Respiratory: Respiratory: Reports as per HPI and Reports no additional respiratory complaints Gastrointestinal: Gastrointestinal: Reports as per HPI and Reports no additional gastrointestinal complaints Genitourinary: Genitourinary: Reports no additional male genitourinary complaints and Reports as per HPI Musculoskeletal: Musculoskeletal: Reports no additional musculoskeletal complaints and Reports as per HPI Integumentary/Breasts: Skin/Breast: Reports system reviewed and no additional complaints, except as docu and Reports as per HPI Neurologic: Reports system reviewed and no additional complaints, except as documented and Reports as per HPI Psychiatric: Psychiatric: Reports no additional psychiatric complaints and Reports as per HPI Exam Narrative: General: In no acute distress, well nourished Head: atraumatic, no encephalopathy Eyes: PERRLA, sclera clear ENT: moist mucous membranes, nasal passages clear Neck: supple, no JVD, no adenopathy, trachea midline Cardiac: Normal S1 and S2. No murmur, gallops or friction rubs, peripheral pulses intact. Respiratory: Lungs clear to auscultation, no adventitious lung sounds, currently on C pap Gastrointestinal: soft, rounded, obese, non-tender, normoactive bowel sounds. : voiding without difficulty. Extremities: moves all extremities well, no edema Skin: clean, dry, intact. No wounds or lesions. Neuro: Alert and oriented x4, cranial nerves intact, no neuro deficits. Psych: normal mood, normal affect, interactive Objective Data Vital Signs Vital Signs: Vital Signs - 24 hr 02/25/24 12:09 02/25/24 13:01 02/25/24 13:10 Temperature Pulse Rate 83 80 Respiratory Rate 18 18 Blood Pressure 157/81 H Pulse Oximetry 99 99 Oxygen Delivery Room Air Oxygen Flow Rate 02/25/24 13:20 02/25/24 13:41 02/25/24 11:47 Temperature Pulse Rate 82 68 Respiratory Rate 18 18 Blood Pressure 181/74 H Pulse Oximetry 99 98 Oxygen Delivery Room Air Oxygen Flow Rate 02/25/24 11:57 02/25/24 12:01 02/25/24 13:02 Temperature Pulse Rate 84 83 87 Respiratory Rate 18 20 16 Blood Pressure 168/94 H 157/103 H 157/81 H Pulse Oximetry 99 98 Oxygen Delivery Oxygen Flow Rate 02/25/24 14:01 02/25/24 15:05 02/25/24 15:15 Temperature 97.2 F L Pulse Rate 76 79 Respiratory Rate 12 22 H Blood Pressure 150/74 H 153/82 H Pulse Oximetry 98 100 100 Oxygen Delivery Nasal Cannula Oxygen Flow Rate 2 02/25/24 19:56 02/25/24 19:58 02/25/24 20:01 Temperature Pulse Rate 96 100 Respiratory Rate 18 18 Blood Pressure Pulse Oximetry 99 Oxygen Delivery Nasal Cannula Oxygen Flow Rate 2 02/25/24 21:27 02/25/24 21:38 02/26/24 01:49 Temperature 97.9 F Pulse Rate 107 H 105 H 97 Respiratory Rate 24 H 18 Blood Pressure 172/92 H Pulse Oximetry 98 Oxygen Delivery Oxygen Flow Rate 02/26/24 01:56 02/26/24 05:37 Temperature 97.9 F Pulse Rate 98 84 Respiratory Rate 18 22 H Blood Pressure 141/57 H Pulse Oximetry 96 Oxygen Delivery Oxygen Flow Rate Intake/Output Intake/Output: Intake & Output 02/23/24 02/24/24 02/25/24 02/26/24 23:59 23:59 23:59 23:59 Intake Total 220 500 Balance 220 500 Meds/Results Medications: Active Medications Generic Name Dose Route Start Last Admin Trade Name Freq PRN Reason Stop Dose Admin Acetaminophen 650 mg 02/25/24 14:58 02/25/24 17:52 Acetaminophen 325 Mg Tablet PO 650 mg Q6H PRN Administration Mild Pain (1-3) or Fever Albuterol/Ipratropium 3 ml 02/25/24 20:00 02/26/24 01:48 Ipratropium 0.5 Mg/Albuterol Sulfate 2.5 Mg Ampul.Neb 3 Ml INHALATION 3 ml Q6HRT JEANNINE Administration Aspirin 81 mg 02/26/24 09:00 Aspirin 81 Mg Enteric Tablet PO DAILY JEANNINE Atorvastatin Calcium 80 mg 02/25/24 21:00 02/25/24 21:37 Atorvastatin 40 Mg Tablet PO 80 mg HS JEANNINE Administration Azelastine HCl 2 spray 02/25/24 17:00 02/25/24 17:48 Azelastine Hcl Nasal 0.1% 137 Mcg/Spr 30 Ml Btl NASAL 2 spray BID JEANNINE Administration Bupropion HCl 150 mg 02/26/24 09:00 Bupropion Hcl Xl (24 Hr) 150 Mg Tabcr PO QAM JEANNINE Buspirone HCl 10 mg 02/25/24 17:00 02/25/24 17:49 Buspirone Hcl 10 Mg Tablet PO 10 mg TID JEANNINE Administration Carvedilol 6.25 mg 02/25/24 21:00 02/25/24 21:38 Carvedilol 6.25 Mg Tablet PO 6.25 mg Q12H JEANNINE Administration Dextrose 12.5 gm 02/25/24 14:45 Dextrose 50% 25 Gm/50 Ml Syringe IV PUSH PRN PRN Hypoglycemia Protocol Duloxetine HCl 60 mg 02/25/24 21:00 02/25/24 21:38 Duloxetine Hcl 60 Mg Capsule.Dr PO 60 mg HS JEANNINE Administration Empagliflozin 10 mg 02/26/24 09:00 Empagliflozin 10 Mg Tablet PO DAILY JEANNINE Enoxaparin Sodium 40 mg 02/26/24 09:00 Enoxaparin 40 Mg/0.4 Ml Syringe SUB-Q DAILY [facility] Fluticasone Propionate 1 spray 02/26/24 09:00 Fluticasone Propionate 0.05% Na Spr 16 Gm Btl (*Bkc) NASAL DAILY JEANNINE Fluticasone/Umeclidinium/Vilanterol 1 puff 02/26/24 09:00 Fluticasone/Umeclidin/Vilanter 100-62.5-25 Mcg Ellipta INHALATION DAILY JEANNINE Furosemide 40 mg 02/25/24 17:00 02/25/24 17:49 Furosemide 40 Mg Tablet PO 40 mg BID JEANNINE Administration Gabapentin 300 mg 02/25/24 17:00 02/25/24 21:38 Gabapentin 300 Mg Capsule PO 300 mg QID JEANNINE Administration Glipizide 5 mg 02/26/24 09:00 Glipizide 5 Mg Tablet PO DAILY JEANNINE Glucagon 1 mg 02/25/24 14:45 Glucagon For Inj 1 Mg Vial IM PRN PRN Hypoglycemia Protocol Glucose 15 gm 02/25/24 14:45 Glucose Oral Gel 15 Gm Of Glucse In 37.5 Gm Tube PO PRN PRN Hypoglycemia Protocol Guaifenesin 1,200 mg 02/25/24 21:00 02/25/24 21:37 Guaifenesin 12 Hr 600 Mg Tabcr PO 1,200 mg Q12HR JEANNINE Administration Hydroxyzine Pamoate 50 mg 02/25/24 19:05 02/25/24 21:37 Hydroxyzine Pamoate 25 Mg Capsule PO 50 mg BID PRN Administration Anxiety Dextrose 1,000 mls @ 100 mls/hr 02/25/24 14:45 Dextrose 5% 1,000 Ml IVPB PRN PRN Hypoglycemia Protocol Insulin Aspart 2 - 4 units 02/25/24 21:00 02/25/24 21:39 Insulin Aspart (*Bkc) 100 Units/Ml SUB-Q 2 units HS JEANNINE Administration Protocol Insulin Aspart 4 - 8 units 02/25/24 17:00 02/25/24 17:29 Insulin Aspart (*Bkc) 100 Units/Ml SUB-Q Not Given [facility] Protocol Insulin Glargine 30 units 02/25/24 18:00 02/25/24 17:53 Insulin Glargine (*Bkc) 100 Units/Ml SUB-Q 30 units QPM JEANNINE Administration Lamotrigine 100 mg 02/25/24 21:00 02/25/24 21:38 Lamotrigine 100 Mg Tablet PO 100 mg Q12HR JEANNINE Administration Lidocaine 1 patch 02/26/24 09:00 Lidocaine 5% Patch TRANSDERM DAILY JEANNINE Losartan Potassium 50 mg 02/26/24 09:00 Losartan Potassium 25 Mg Tablet PO DAILY JEANNINE Metformin HCl 1,000 mg 02/25/24 17:00 02/25/24 17:50 Metformin Hcl 500 Mg Tablet PO 1,000 mg BID JEANNINE Administration Methocarbamol 750 mg 02/25/24 22:00 02/26/24 05:07 Methocarbamol 750 Mg Tablet PO 750 mg Q8HR JEANNINE Administration Methylprednisolone Sodium Succinate 60 mg 02/25/24 22:00 02/26/24 05:07 Methylprednisolone Sod Succ 125 Mg Vial IV PUSH 60 mg Q8HR JEANNINE Administration Potassium Chloride 20 meq 02/26/24 09:00 Potassium Chloride 20 Meq Packet (For Liquid) PO QAM JEANNINE Ziprasidone 60 mg 02/25/24 17:00 02/25/24 17:51 Ziprasidone Hcl 20 Mg Capsule PO 60 mg BID JEANNINE Administration Ziprasidone 80 mg 02/25/24 21:00 02/25/24 21:37 Ziprasidone Hcl 80 Mg Capsule PO 80 mg HS JEANNINE Administration Radiology Results: ITS Impressions Chest X-Ray 02/25/24 12:35 Impression: Normal chest. Labs Labs: Laboratory Results - last 24 hr 02/25/24 02/25/24 02/25/24 12:02 12:03 12:41 WBC 9.5 RBC 4.18 L Hgb 12.6 L Hct 37.5 L MCV 89.7 MCH 30.1 MCHC 33.6 RDW 13.2 Plt Count 229 MPV 9.3 Immature Gran % (Auto) 0.3 Neut % (Auto) 69.8 Lymph % (Auto) 23.9 [place] % (Auto) 3.8 Eos % (Auto) 1.8 Baso % (Auto) 0.4 Lymph # (Auto) 2.27 [place] # (Auto) 0.4 Eos # (Auto) 0.2 Baso # (Auto) 0.0 Abs Immat Gran (auto) 0.03 Absolute Neuts (auto) 6.6 Absolute Nucleated RBC 0.000 Nucleated RBC % 0.0 PT 13.9 INR 1.0 APTT 30.2 Sodium 137 Potassium 3.9 Chloride 101 Carbon Dioxide 25 Anion Gap 11 BUN 15 Creatinine 0.70 Estim Creat Clear Calc Not Reportable Estimated GFR > 60 Glucose 151 H POC Capillary Glucose Hemoglobin A1c Calcium 9.4 Magnesium 2.0 Total Bilirubin 0.4 AST 33 ALT 26 Alkaline Phosphatase 118 Troponin I < 0.012 NT-Pro-B Natriuret Pep 59 Total Protein 8.0 Albumin 4.3 Lipase 120 Procalcitonin 0.1 Urine Color Yellow Urine Appearance Clear Urine pH 8.0 Ur Specific [place] 1.032 Urine Protein 1+ H Urine Glucose (UA) 1+ H Urine Ketones Trace H Ur Blood (Man) Negative Urine Nitrate Negative Urine Bilirubin Negative Urine Urobilinogen 0.2 Leukocyte Esterase Rfl Negative Urine RBC 0-2 Urine WBC 0-5 Ur Squamous Epith Cells None seen Urine Bacteria None seen Urine Casts 0-2 Influenza A (RT-PCR) Negative Influenza B (RT-PCR) Negative RSV (RT-PCR) Negative SARS-CoV-2 RNA (RT-PCR) Negative 02/25/24 02/25/24 02/25/24 15:04 17:01 20:39 WBC RBC Hgb Hct MCV MCH MCHC RDW Plt Count MPV Immature Gran % (Auto) Neut % (Auto) Lymph % (Auto) [place] % (Auto) Eos % (Auto) Baso % (Auto) Lymph # (Auto) [place] # (Auto) Eos # (Auto) Baso # (Auto) Abs Immat Gran (auto) Absolute Neuts (auto) Absolute Nucleated RBC Nucleated RBC % PT INR APTT Sodium Potassium Chloride Carbon Dioxide Anion Gap BUN Creatinine Estim Creat Clear Calc Estimated GFR Glucose POC Capillary Glucose 195 H 289 H Hemoglobin A1c 7.7 H Calcium Magnesium Total Bilirubin AST ALT Alkaline Phosphatase Troponin I < 0.012 NT-Pro-B Natriuret Pep Total Protein Albumin Lipase Procalcitonin Urine Color Urine Appearance Urine pH Ur Specific [place] Urine Protein Urine Glucose (UA) Urine Ketones Ur Blood (Man) Urine Nitrate Urine Bilirubin Urine Urobilinogen Leukocyte Esterase Rfl Urine RBC Urine WBC Ur Squamous Epith Cells Urine Bacteria Urine Casts Influenza A (RT-PCR) Influenza B (RT-PCR) RSV (RT-PCR) SARS-CoV-2 RNA (RT-PCR) 02/26/24 05:09 WBC RBC Hgb Hct MCV MCH MCHC RDW Plt Count MPV Immature Gran % (Auto) Neut % (Auto) Lymph % (Auto) [place] % (Auto) Eos % (Auto) Baso % (Auto) Lymph # (Auto) [place] # (Auto) Eos # (Auto) Baso # (Auto) Abs Immat Gran (auto) Absolute Neuts (auto) Absolute Nucleated RBC Nucleated RBC % PT INR APTT Sodium 135 L Potassium 4.5 Chloride 102 Carbon Dioxide 22 Anion Gap 11 BUN 18 Creatinine 0.70 Estim Creat Clear Calc 189 Estimated GFR > 60 Glucose 247 H POC Capillary Glucose Hemoglobin A1c Calcium 9.2 Magnesium 2.0 Total Bilirubin AST ALT Alkaline Phosphatase Troponin I NT-Pro-B Natriuret Pep Total Protein Albumin Lipase Procalcitonin Urine Color Urine Appearance Urine pH Ur Specific [place] Urine Protein Urine Glucose (UA) Urine Ketones Ur Blood (Man) Urine Nitrate Urine Bilirubin Urine Urobilinogen Leukocyte Esterase Rfl Urine RBC Urine WBC Ur Squamous Epith Cells Urine Bacteria Urine Casts Influenza A (RT-PCR) Influenza B (RT-PCR) RSV (RT-PCR) SARS-CoV-2 RNA (RT-PCR) Quality VTE Prophylaxis VTE prophylaxis: pharmacologic ordered
[2024-02-26 07:40] LABS: Glucose Point of Care 256 mg/dl (65-105)
[2024-02-26 08:12] LABS: Basophils Percent Auto 0.1 % (0.2-1.2); Hematocrit 38.2 % (42.0-52.0); Hemoglobin 12.5 g/dL (14.0-18.0); Immature Granulocyte Absolute 0.04 K/mm3 (0.00-0.031); Immature Granulocyte Percent A 0.4 % (0-0.5); Lymphocytes Absolute Auto 1.14 K/mm3 (0.9-3.2); Lymphocytes Percent Auto 11.2 % (18.3-44.2); Mean Corpuscular HGB Conc 32.7 g/dl (32-36); Mean Corpuscular Hemoglobin 30.5 pg (26-34); Mean Corpuscular Volume 93.2 fl (80-100); Mean Platelet Volume 10.1 fl (7.4-10.4); Monocytes Absolute Auto 0.2 K/mm3 (0.1-0.6); Monocytes Percent Auto 1.7 % (2.6-8.5); Neutrophils Absolute Auto 8.9 K/mm3 (1.3-6.7); Neutrophils Percent Auto 86.6 % (45.5-73.1); Platelet Count Result 229 k/mm3 (150-375); Red Cell Distribution Width 13.4 % (11.5-14.5); White Blood Count 10.2 K/mm3 (4.5-10.0)
[2024-02-26 08:42] LABS: Alanine Aminotransferase 24 U/L (6-50); Albumin Level 4.1 g/dL (3.5-5.1); Alkaline Phosphatase 102 U/L (38-126); Anion Gap 11 mmol/L (4-12); Aspartate Amino Transferase 24 U/L (17-59); Bilirubin,Total 0.3 mg/dL (0.2-1.3); Blood Urea Nitrogen 18 mg/dL (9-20); Calcium 9.3 mg/dL (8.4-10.2); Carbon Dioxide 21 mmol/L (22-30); Chloride 103 mmol/L (98-107); Estimated CRCL calculation 189 ml/min; Estimated Glomerular Filt Rate > 60; Glucose 249 mg/dL (65-110); Potassium 4.6 mmol/L (3.4-5.0); Sodium 135 mmol/L (137-145)
[2024-02-26] MEDS: ZIPRASIDONE HCL 20 MG CAPSULE 60 MG PO ×2 (08:52→17:08)
[2024-02-26] MEDS: LOSARTAN POTASSIUM 25 MG TABLET 50 MG PO (08:53)
[2024-02-26] MEDS: buPROPion HCL XL (24 HR) 150 MG TABCR PO (08:53)
[2024-02-26] MEDS: lamoTRIgine 100 MG TABLET PO ×2 (08:53→20:19)
[2024-02-26] MEDS: busPIRone HCL 10 MG TABLET PO ×3 (08:54→17:08)
[2024-02-26] MEDS: carvediloL 6.25 MG TABLET PO ×2 (08:54→20:20)
[2024-02-26] MEDS: guaiFENesin 12 HR 600 MG TABCR 1200 MG PO ×2 (08:54→20:19)
[2024-02-26] MEDS: GABAPENTIN 300 MG CAPSULE PO ×4 (08:54→20:21)
[2024-02-26] MEDS: EMPAGLIFLOZIN 10 MG TABLET PO (08:54)
[2024-02-26] MEDS: FUROSEMIDE 40 MG TABLET PO ×2 (08:55→17:08)
[2024-02-26] MEDS: ASPIRIN 81 MG ENTERIC TABLET PO (08:55)
[2024-02-26] MEDS: ENOXAPARIN 40 MG/0.4 ML SYRINGE SUB-Q (08:55)
[2024-02-26] MEDS: FLUTICASONE PROPIONATE 0.05% NA SPR 16 GM BTL (*BKC) 1 SPRAY NASAL (08:56)
[2024-02-26] MEDS: AZELASTINE HCL NASAL 0.1% 137 MCG/SPR 30 ML BTL 2 SPRAY NASAL ×2 (08:56→17:14)
[2024-02-26] MEDS: POTASSIUM CHLORIDE 20 MEQ PACKET (FOR LIQUID) PO (08:56)
[2024-02-26] MEDS: INSULIN ASPART (*BKC) 100 UNITS/ML SUB-Q ×4 (08:57→20:21)
[2024-02-26 11:27] LABS: Glucose Point of Care 237 mg/dl (65-105)
[2024-02-26] MEDS: AZITHROMYCIN 250 MG TABLET 500 MG PO (13:41)
[2024-02-26] MEDS: hydrOXYzine pamoate 25 MG CAPSULE 50 MG PO ×2 (13:44→20:18)
[2024-02-26] MEDS: FLUTICASONE/UMECLIDIN/VILANTER 100-62.5-25 MCG ELLIPTA 1 PUFF INHALATION (14:23)
[2024-02-26 16:34] LABS: Glucose Point of Care 250 mg/dl (65-105)
[2024-02-26] MEDS: methylPREDNISolone SOD SUCC 40 MG VIAL IV PUSH (17:10)
[2024-02-26] MEDS: INSULIN GLARGINE (*BKC) 100 UNITS/ML 30 UNITS SUB-Q (17:11)
[2024-02-26] MEDS: ZIPRASIDONE HCL 80 MG CAPSULE PO (20:19)
[2024-02-26] MEDS: DULoxetine HCL 60 MG CAPSULE.DR PO (20:21)
[2024-02-26] MEDS: ATORVASTATIN 40 MG TABLET 80 MG PO (20:21)
[2024-02-26 21:06] LABS: Glucose Point of Care 242 mg/dl (65-105)
[2024-02-27] VITALS (7 sets, daily range): BP systolic 123; BP diastolic 67; PULSE 59–85; RESP 20; TEMP 36.4; O2SAT 95–98
[2024-02-27] MEDS: IPRATROPIUM 0.5 MG/ALBUTEROL SULFATE 2.5 MG AMPUL.NEB 3 ML INHALATION ×2 (01:44→07:16)
[2024-02-27] MEDS: methocarbamoL 750 MG TABLET PO (05:06)
[2024-02-27 06:11] LABS: Basophils Percent Auto 0.2 % (0.2-1.2); Hematocrit 39.7 % (42.0-52.0); Hemoglobin 12.8 g/dL (14.0-18.0); Immature Granulocyte Absolute 0.07 K/mm3 (0.00-0.031); Immature Granulocyte Percent A 0.5 % (0-0.5); Lymphocytes Absolute Auto 2.59 K/mm3 (0.9-3.2); Lymphocytes Percent Auto 18.6 % (18.3-44.2); Mean Corpuscular HGB Conc 32.2 g/dl (32-36); Mean Corpuscular Hemoglobin 29.8 pg (26-34); Mean Corpuscular Volume 92.3 fl (80-100); Mean Platelet Volume 9.8 fl (7.4-10.4); Monocytes Absolute Auto 0.7 K/mm3 (0.1-0.6); Monocytes Percent Auto 4.8 % (2.6-8.5); Neutrophils Absolute Auto 10.6 K/mm3 (1.3-6.7); Neutrophils Percent Auto 75.9 % (45.5-73.1); Platelet Count Result 232 k/mm3 (150-375); Red Cell Distribution Width 13.7 % (11.5-14.5)
[2024-02-27 06:20] LABS: Alanine Aminotransferase 21 U/L (6-50); Albumin Level 4.3 g/dL (3.5-5.1); Alkaline Phosphatase 98 U/L (38-126); Anion Gap 12 mmol/L (4-12); Aspartate Amino Transferase 19 U/L (17-59); Bilirubin,Total 0.6 mg/dL (0.2-1.3); Blood Urea Nitrogen 28 mg/dL (9-20); Calcium 9.3 mg/dL (8.4-10.2); Carbon Dioxide 24 mmol/L (22-30); Chloride 101 mmol/L (98-107); Estimated CRCL calculation 134 ml/min; Estimated Glomerular Filt Rate > 60; Glucose 201 mg/dL (65-110); Potassium 3.7 mmol/L (3.4-5.0); Sodium 137 mmol/L (137-145)
[2024-02-27] MEDS: FLUTICASONE/UMECLIDIN/VILANTER 100-62.5-25 MCG ELLIPTA 1 PUFF INHALATION (07:16)
[2024-02-27 08:18] LABS: Glucose Point of Care 156 mg/dl (65-105)
[2024-02-27] MEDS: ZIPRASIDONE HCL 20 MG CAPSULE 60 MG PO (08:57)
[2024-02-27] MEDS: LOSARTAN POTASSIUM 25 MG TABLET 50 MG PO (08:57)
[2024-02-27] MEDS: lamoTRIgine 100 MG TABLET PO (08:57)
[2024-02-27] MEDS: guaiFENesin 12 HR 600 MG TABCR 1200 MG PO (08:58)
[2024-02-27] MEDS: FUROSEMIDE 40 MG TABLET PO (08:58)
[2024-02-27] MEDS: AZITHROMYCIN 250 MG TABLET 500 MG PO (08:58)
[2024-02-27] MEDS: ASPIRIN 81 MG ENTERIC TABLET PO (08:59)
[2024-02-27] MEDS: carvediloL 6.25 MG TABLET PO (08:59)
[2024-02-27] MEDS: GABAPENTIN 300 MG CAPSULE PO (08:59)
[2024-02-27] MEDS: EMPAGLIFLOZIN 10 MG TABLET PO (08:59)
[2024-02-27] MEDS: busPIRone HCL 10 MG TABLET PO (08:59)
[2024-02-27] MEDS: methylPREDNISolone SOD SUCC 40 MG VIAL IV PUSH (09:00)
[2024-02-27] MEDS: AZELASTINE HCL NASAL 0.1% 137 MCG/SPR 30 ML BTL 2 SPRAY NASAL (09:00)
[2024-02-27] MEDS: buPROPion HCL XL (24 HR) 150 MG TABCR PO (09:00)
[2024-02-27] MEDS: FLUTICASONE PROPIONATE 0.05% NA SPR 16 GM BTL (*BKC) 1 SPRAY NASAL (09:00)
[2024-02-27] MEDS: POTASSIUM CHLORIDE 20 MEQ PACKET (FOR LIQUID) PO (09:01)
[2024-02-27] MEDS: ENOXAPARIN 40 MG/0.4 ML SYRINGE SUB-Q (09:01)
--- NOTE | 2024-03-05 12:24 | PM.DS ---
DS: Admitting Diagnosis Discharge Date 02/27/24 Admitting Diagnosis Acute exacerbation of COPD Chronic respiratory failure with hypoxia Heart failure with preserved EF Obstructive sleep apnea Type 2 diabetes mellitus Hypertension Dyslipidemia DS: Discharge Diagnosis Discharge Diagnosis (1) Chronic respiratory failure with hypoxia: Code(s): J96.11 - Chronic respiratory failure with hypoxia Status: Acute (2) Acute exacerbation of chronic obstructive pulmonary disease: Code(s): J44.1 - Chronic obstructive pulmonary disease with (acute) exacerbation Status: Acute (3) Heart failure with preserved ejection fraction: Code(s): I50.30 - Unspecified diastolic (congestive) heart failure Status: Chronic (4) Obstructive sleep apnea: Code(s): G47.33 - Obstructive sleep apnea (adult) (pediatric) Status: Chronic (5) Type 2 diabetes mellitus: Code(s): E11.9 - Type 2 diabetes mellitus without complications Status: Chronic (6) Hypertension: Qualifiers: Hypertension type: primary hypertension Qualified Code(s): I10 - Essential (primary) hypertension Code(s): I10 - Essential (primary) hypertension Status: Chronic (7) Dyslipidemia: Code(s): E78.5 - Hyperlipidemia, unspecified Status: Acute DS: Summary Hospital Course Reason for hospitalization: Acute exacerbation of COPD Chronic respiratory failure with hypoxia Heart failure with preserved EF Obstructive sleep apnea Type 2 diabetes mellitus Hypertension Dyslipidemia Hospital Course: This is a 47 year old male who presented to the hospital on 02/26/24 for evaluation of acute respiratory failure with hypoxia secondary to COPD exacerbation. Work up in the hospital included a chest xray which was normal. Initial labs revealed a hgb 12.6, hgb A1C 7.7, BG ranging 151-289, troponin negative, pro BNP 59, pro calcitonin 0.1. UA was obtained and shown 1+ protein, 1+ glucose, trace ketones, otherwise unremarkable. Respiratory panel was negative for influenza A and B, RSV, COVID. EKG shown NSR with a rate of 67, QTc 385. Patient was placed on 2L NC, given Duoneb, 125mg of IVP Solu-Medrol while in the ER. Patient continued with DuoNebs and Solu-Medrol over than this 24 hours with improvement in his symptoms. His oxygen was weaned. He states he is feeling much better today. His vital signs are stable, he is afebrile, he is currently on room air. He is stable for discharge at this time. He will need to follow up with his primary care physician in 1 week. He was discharged with a Solu-Medrol Dosepak and azithromycin and will need to complete this before following up. He also has a nebulizer with DuoNebs, Breztri and albuterol inhalers at home which he will continue use. Final diagnosis: Acute exacerbation of COPD, chronic respiratory failure with hypoxia Status at Discharge Cognitive/behavioral status at discharge: Alert oriented x4 Functional status at discharge: independent ambulation Overall status at discharge: patient is progressing back to baseline Time Spent with Patient Time attestation: Total time spent providing and/or coordinating discharge services: Time spent: Greater than 30 minutes Exam Narrative: General: In no acute distress, well nourished Cardiac: Normal S1 and S2. No murmur, gallops or friction rubs, peripheral pulses intact. Respiratory: Lungs clear to auscultation, no adventitious lung sounds, currently on room air Gastrointestinal: soft, rounded, obese, non-tender, normoactive bowel sounds. : voiding without difficulty. Neuro: Alert and oriented x4 DS: Data Data Completed and Pending Completed studies during hospitalization: Chest x-ray Pending studies at discharge: None Procedures/Treatments: None Discharge Plan Discharge Attending physician on discharge: Dimitris Gurrola Consulting providers: César Swanson; Angela Manning; Jose Luis Hernández Discharging Clinician: Amy Bean Anticipated Discharge Date/Time: 02/27/24 08:15 Patient Disposition: Home, Self-Care Activity: as tolerated Diet: as tolerated, heart healthy and diabetic Discharge Instructions: Continue use of inhalers at home Use supplemental O2 as needed for SOB Use nebulized treatments as needed for SOB/Wheezing Finish all of your steroid taper and Azithromycin Follow up with your primary care doctor in 1 week. Patient Instructions: Heart Failure (DC), COPD (Chronic Obstructive Pulmonary Disease) (DC) Patient Language: Mauritanian Stand Alone Forms: General Discharge Information Follow-up/Referrals: Akanksha,Marilee Galdamez MD [Primary Care Provider] - 1 Week Discharge Medications: New azithromycin [Zithromax] 250 mg Tablet 500 mg PO DAILY Qty: 3 0RF methylprednisolone 4 mg tablets,dose pack See Rx Instructions .ROUTE .COMPLEX Qty: 21 0RF Rx Instructions: orally per package directions Continued atorvastatin 20 mg Tablet 80 mg PO HS methocarbamol 750 mg Tablet 750 mg PO TID buspirone 10 mg Tablet 10 mg PO TID Rx Instructions: Take TID for 90 days azelastine 137 mcg (0.1 %) [place],Non-Aerosol 137 mcg INTRANASAL BID Rx Instructions: Administer 2 puffs into each nostril ziprasidone HCl 60 mg Capsule 60 mg PO DAILY Rx Instructions: give with food (meal/snack) fluticasone propionate 50 mcg/actuation [place],Suspension 50 mcg intranasal DAILY lamotrigine 100 mg Tablet 100 mg PO BID Rx Instructions: Take BID bupropion HCl 150 mg Tablet Extended Release 24 Hr 150 mg PO QAM Rx Instructions: Take daily with meals duloxetine 60 mg Capsule,Delayed Release(Dr/Ec) 60 mg PO HS furosemide [Lasix] 40 mg tablet 40 mg PO BID albuterol sulfate 90 mcg/actuation HFA aerosol inhaler 2 puff inhalation Q4-6H PRN (Reason: shortness of breath or wheezing) Jardiance 10 mg Tablet 10 mg PO DAILY 30 Days Qty: 30 0RF insulin glargine [Lantus Solostar U-100 Insulin] 100 unit/mL (3 mL) insulin pen 30 unit subcut QPM Qty: 15 1RF (DME) pen needle, diabetic 29 gauge x 1/2 needle See Rx Instructions .Route Qty: 100 0RF Rx Instructions: As directed insulin lispro [Humalog Bart Anisa U-100] 100 unit/mL insulin pen, half-unit 1 sliding scale dose subcut USEASDIRECTD PRN (Reason: hyperglycemia) Qty: 15 1RF Rx Instructions: three times a day before meals glucose <200 no additional insulin glucose 201-250 3units glucose 251-300 4units glucose 301-350 5units glucose 351-400 6units glucose >400 call MD. max daily dose 18 units carvedilol 6.25 mg tablet 6.25 mg PO Q12H albuterol sulfate 1.25 mg/3 mL Solution For Nebulization 2.5 mg INHALATION Q4H PRN (Reason: Shortness Of Breath) losartan 25 mg Tablet 50 mg PO DAILY gabapentin 100 mg Capsule 300 mg PO BID Rx Instructions: 2 tabs BID metformin 500 mg tablet 1,000 mg PO TID Breztri Aerosphere 160-9-4.8 mcg/actuation HFA aerosol inhaler 2 inh INHALATION BID Mounjaro 5 mg/0.5 mL pen injector 5 mg SUBCUT WEEKLY Rx Instructions: ziprasidone HCl 80 mg capsule 80 mg PO HS aspirin 81 mg tablet,delayed release (DR/EC) 81 mg PO DAILY glipizide 5 mg tablet 5 mg PO DAILY potassium chloride 20 mEq/15 mL liquid 20 meq PO DAILY hydroxyzine pamoate 50 mg Capsule 50 mg PO BID PRN (Reason: Anxiety) Date of admission: 02/26/24 14:17 Primary Care Provider: Akanksha,Marilee Galdamez Admitting Provider: Yony Frye Attending physician on admission: Amy Bean Condition: Improved Quality VTE Prophylaxis VTE prophylaxis: pharmacologic ordered
== END 2024-02-27 11:45 | disposition home or self-care (01) | DRG 191 ==
LOC: ANHED 14:03 → ANH2MED 14:32
PROVIDERS: Physician Assistant; Admitting Provider General Practice; Emergency Provider Emergency Medicine; PCP Emergency Medicine; Visit Provider Nurse Practitioner Acute Care
DX: J44.1 Chronic obstructive pulmonary disease with (acute) exacerbation (principal); I50.32 Chronic diastolic (congestive) heart failure; J96.11 Chronic respiratory failure with hypoxia; J96.12 Chronic respiratory failure with hypercapnia; Z68.43 Body mass index [BMI] 50.0-59.9, adult; E11.9 Type 2 diabetes mellitus without complications; E78.5 Hyperlipidemia, unspecified; G47.33 Obstructive sleep apnea (adult) (pediatric); I11.0 Hypertensive heart disease with heart failure; F41.9 Anxiety disorder, unspecified; K21.9 Gastro-esophageal reflux disease without esophagitis; Z20.822 Contact with and (suspected) exposure to COVID-19; Z79.84 Long term (current) use of oral hypoglycemic drugs; Z79.4 Long term (current) use of insulin; Z79.82 Long term (current) use of aspirin; Z99.81 Dependence on supplemental oxygen; Z87.891 Personal history of nicotine dependence; Z99.89 Dependence on other enabling machines and devices
CPT/HCPCS: 36415; 71046; 80048; 80053; 81001; 82948; 83036; 83690; 83735; 83880; 84145; 84484; 85025; 85610; 85730; 87637; 93005; 94640; 94667; 96372; 96374; 96376; 99285; A9270; G0378; J1650; J1815; J2919

== ENCOUNTER 2024-04-24 11:51 | Outpatient (CLI) | payer MEDICARE, SELFPAY ==
--- NOTE | ~2024-04-24 | XR_ITS ---
XR hip BI 2V w AP pelvis Ordering provider: Dennis Suh MD History: . M46.1 - Sacroiliitis, not elsewhere classified . Comparison: None. FINDINGS: BONES: No acute fracture or dislocation. HIP JOINT SPACES: Mild to moderate bilateral hip osteoarthritis. SACROILIAC JOINT SPACES/LUMBAR SPINE: The sacroiliac joint spaces are normal. Mild degenerative lantigua es of the visualized lower lumbar spine. PUBIC SYMPHYSIS: Pubic symphysitis. SOFT TISSUES: Normal. IMPRESSION: No acute osseous abnormality of the bilateral hips and pelvis. Reviewed, dictated and finalized at location A. 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
--- NOTE | ~2024-04-24 | XR_ITS ---
3 VIEWS LUMBAR SPINE Ordering provider: Dennis Suh MD History: . M96.1 - Postlaminectomy syndrome, not elsewhere classified . Comparison: None. FINDINGS: VERTEBRAL BODIES: No visible fracture or subluxation. DISK SPACES: Narrowing of the disc L4-L5 and L5-S1. SOFT TISSUES: Normal. IMPRESSION: No acute osseous abnormality lumbar spine. Highly suggestive cholelithiasis. Ultrasound evaluation advised. Degenerative disease at the level of L4-L5 and L5-S1. Reviewed, dictated and finalized at location A. 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
== END 2024-04-24 11:52 | disposition home or self-care (01) ==
PROVIDERS: PCP Emergency Medicine; Visit Provider Anesthesiology Pain Medicine
DX: M46.1 Sacroiliitis, not elsewhere classified (principal); M96.1 Postlaminectomy syndrome, not elsewhere classified; M51.369 Other intervertebral disc degeneration, lumbar region without mention of lumbar back pain or lower extremity pain; M51.379 Other intervertebral disc degeneration, lumbosacral region without mention of lumbar back pain or lower extremity pain; M25.552 Pain in left hip
CPT/HCPCS: 72114; 73521

== ENCOUNTER 2024-06-20 10:00 | Outpatient (RCR) | payer MEDICARE, MEDICAID, SELFPAY ==
--- NOTE | 2024-05-16 10:21 | PCPTNOTE ---
pt called and canceled today's PT evaluation appt due to transportation issues.
--- NOTE | 2024-05-16 12:02 | OPREHPOC ---
Outpatient Therapy Plan of Care This is a Multidisciplinary Plan of Care that may contain components documented by all disciplines (PT, OT, and ST.) PT Problem 1 PT Problem #1 Knowledge Deficit PT Goal 1 Goal / Goal Update *indep with HEP Target Visit 10 PT Problem 2 PT Problem #2 Pain PT Goal 1 Goal / Goal Update * pt report pain rating at worst of 5/10 Target Visit 10 PT Goal 2 Goal / Goal Update * radicular pain into L LE to mid thigh at worst Target Visit 10 PT Problem 3 PT Problem #3 Impaired Strength PT Goal 1 Goal / Goal Update * pt able to perform 45 minutes of aquatic strengthening exercises Target Visit 10 PT Goal 2 Goal / Goal Update *increase trunk and LE strength to improve stability to spine: pt able to perform 20 reps of sitting and standing LE exercises Target Visit 10 PT Problem 4 PT Problem #4 Impaired Functional Mobility PT Goal 1 Goal / Goal Update * pt transfer sit/stand without laboring from 18 seat x 3 reps Target Visit 10 PT Goal 2 Goal / Goal Update * 2 minute walking test distance of 350' Target Visit 10
--- NOTE | 2024-05-16 12:02 | PTOPEVAL1 ---
Assessment and note entered by Sandra Baumann, PT Evaluation Information Assessment Status Evaluation ICD-10 Condition Codes (PT) Pain in low back M54.50,Radiculopathy, lumbar region M54.16,Pain in left hip M25.552 Other ICD-10 Condition Codes ( chronic pain syndrome G89.4,spinal stenosis M43.07 PT) Onset chronic pain Subjective Information chronic pain in back, about 3 years; have had 3 lumbar ablations- helped short time; PT in the past--short relief, but not really help; have had aquatic in the past--liked it; recent hip xrays: R and L mild to moderate OA; to have MRI of lumbar- not yet scheduled Activity: use rollator in home for sitting/rest due to limited standing; cane use PRN; labored with dressing and bathing; use shower seat for bathing; is not able to reach his buttock for wiping after bowel movement; shopping with motorized cart; on disability/ not working; have 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 sleep in recliner, due to not able to tolerate lying flat due to back pain and breathing issues. Goal: move better, be able to clean himself after bowel movement. Reported Pain Level Pain Score Self Report Additional Pain Score Comments pain range in the past week 4- 7/10; R and L lumbar- feel like someone stepping on his back; intermittent into L LE to lateral thigh, to knee; increase pain: standing 15 min; sitting 1 hour in comfortable home chair decrease pain: change position, heat, over the counter meds is not taking any prescription pain meds--change of pain dr and not got any yet Assessment PT Clinical Summary Jerzy has the diagnosis of lumbar radicular pain, intermittent into L LE to knee, chronic pain syndrome, hip pain. Self assessment Oswestry rating of 58% limitation in activity. He reports limited standing, walking and mobility due to back pain. He has assist at home for home tasks, and he has difficulty with self care. He had recent hip x ray with report of minimal to moderate OA bilateral and is awaiting a lumbar MRI to be scheduled. He is under the care of pain management. Medical history includes: COPD, cardiac issues with ER 50-55%, pulmonary HTN, diabetes, anxiety, obesity with BMI 52. With the evaluation: standing trunk flexion increases his back pain; supine R and L hip ER and SLR stretching increase pain; difficulty with supine/sit transfer and unable to tolerate lying flat; 2 minute walking test distance of 310'. Skilled PT services are indicated for aquatic and land exercises to increase strength, modalities PRN for pain control and education for HEP and back care. Plan of Care Interventions Aquatic Therapy,Electrical Stimulation,Hot Pack/ Cold Pack,Manual Therapy,Neuro Re-education, Patient/Caregiver Education,Therapeutic Activities ,Therapeutic Exercise,Ultrasound,Other PT Services Indicated Yes Treatment Frequency and 2x/wk for 10 visits Duration These treatments will address the objective and functional deficits as defined above. The patient will be advanced safely and appropriately in order for the patient to progress towards his/her prior level of function. Additional exercises will be introduced and as well as a comprehensive home exercise program upon discharge, if needed, ?to ensure carryover of functional gains achieved in the clinic. This treatment plan has been reviewed and agreement upon by the patient.
--- NOTE | 2024-06-04 10:15 | PCPTNOTE ---
Pt canceled due to transportation issues.
--- NOTE | 2024-06-20 10:59 | PTOPPROG ---
Assessment and note entered by Sandra Baumann, PT Assessment Status Progress ICD-10 Condition Codes (PT) Pain in low back M54.50,Radiculopathy, lumbar region M54.16,Pain in left hip M25.552 Other ICD-10 Condition Codes ( chronic pain syndrome G89.4,spinal stenosis M43.07 PT) Onset chronic pain Subjective Information feel like things are about the same; doing the exercises at least once/day and some of the stretches feel good; like the water exercises; have a membership to [employer] to use the pool there and have a family membership, for my family to go too; he will continue to do the water exercises. Want to stop therapy and see the dr. Want to have an MRI of my back and see what is going on. Assessment PT Clinical Summary Jerzy has received 10 PT sessions. Compared to the initial evaluation: pain rating is same at 4-10/24, with intermittent radicular pain into L LE to knee; reported standing/activity in home from 15 to 10 minutes; Oswestry self assessment from 58% to 56% limitation in activity level; 2 minute walking test distance from 310' to 315'; improved walking pattern, was reaching out to furniture for stability with walking and today he did not reach out; increase strength of R and L LE with sitting exercises--less strength on L due to pain increase; sit/stand transfer improved with 3 reps from 18 bench- less labored and without use of UE, but reported increase back pain on L side; Education completed for HEP for land and water, with education for back posture and positioning. Jerzy has made some gains with LE strength and walking pattern. The goals were partially met Discussed status with him. He is going to do the aquatic exercises on his own at the fitness center . Return appt with for follow up is in 3 weeks . He will discuss his status with dr and determine if additional therapy is needed. PLAN: HOLD PT and if additional therapy is indicated, he will obtain a new order at dr appointment. Plan of Care Interventions Aquatic Therapy,Electrical Stimulation,Hot Pack/ Cold Pack,Manual Therapy,Neuro Re-education, Patient/Caregiver Education,Therapeutic Activities ,Therapeutic Exercise,Ultrasound,Other PT Services Indicated Yes Treatment Frequency and PLAN: HOLD PT and if additional therapy is Duration indicated, he will obtain a new order at dr appointment. These treatments will address the objective and functional deficits as defined above. The patient will be advanced safely and appropriately in order for the patient to progress towards his/her prior level of function. Additional exercises will be introduced and as well as a comprehensive home exercise program upon discharge, if needed, ?to ensure carryover of functional gains achieved in the clinic. This treatment plan has been reviewed and agreement upon by the patient.
--- NOTE | 2024-08-05 09:35 | PTOPDC ---
Assessment and note entered by Sandra Baumann, PT Assessment Status Discharge - Pt Not Present ICD-10 Condition Codes (PT) Pain in low back M54.50,Radiculopathy, lumbar region M54.16,Pain in left hip M25.552 Other ICD-10 Condition Codes ( chronic pain syndrome G89.4,spinal stenosis M43.07 PT) Onset chronic pain Subjective Information pt was not seen this date. Assessment PT Clinical Summary Omid has not returned for additional therapy after the 06-20-24 progress report. Awaiting additional PT orders if to continue after dr follow up appointment on 07-15-24. No further orders received. Discharge PT. Plan of Care PT Services Indicated No
== END 2024-08-05 11:31 | disposition home or self-care (01) ==
LOC: ANHPT 10:00
PROVIDERS: PCP Emergency Medicine; Visit Provider Anesthesiology Pain Medicine
DX: G89.4 Chronic pain syndrome (principal); M48.07 Spinal stenosis, lumbosacral region; M47.817 Spondylosis without myelopathy or radiculopathy, lumbosacral region; M54.50 Low back pain, unspecified; M54.16 Radiculopathy, lumbar region; M25.552 Pain in left hip
CPT/HCPCS: 97110; 97113; 97116; 97161; 97530

== ENCOUNTER 2024-07-02 10:45 | Outpatient (RCR) | payer MEDICARE, MEDICAID, SELFPAY ==
[2024-07-02 10:50] VITALS: BMI 54.2
[2024-07-02 11:04] VITALS: BMI 54.2
== END 2024-09-22 23:59 | disposition home or self-care (01) ==
LOC: ANHDMC 10:45
PROVIDERS: Visit Provider Internal Medicine Endocrinology, Diabetes & Metabolism
DX: E11.9 Type 2 diabetes mellitus without complications (principal); E78.5 Hyperlipidemia, unspecified; Z71.89 Other specified counseling; Z71.3 Dietary counseling and surveillance
CPT/HCPCS: 97802; G0108

== ENCOUNTER 2024-08-19 01:28 | Day surgery (SDC) | payer MEDICARE, MEDICAID, SELFPAY ==
[2024-08-12 09:18] VITALS: BMI 54.3
--- NOTE | 2024-08-12 09:24 | PC.NURSE ---
Report to the Outpatient Waiting Room, entrance under the green pavilion located off [facility], at time _145pm_ on date _[id number]_. Planned Procedure Time: _245pm_.? Time changes happen often and if your time is changed the preop area will call you the afternoon before. - You and your visitor will be asked to self-screen and do not enter if you have any COVID symptoms. Please call surgeon if you need to reschedule. - A mask is optional within the hospital at this time. Ok for breakfast and a light lunch. Nothing to eat or drink 2 hours prior to the procedure which is 1245pm. - No smoking, or chewing tobacco (or any form of nicotine). No chewing gum, candy or mints. Take only the following medications with a SIP of water on the morning of surgery: __OK to take medicines___ DO NOT STOP ANY OF YOUR OTHER PRESCRIPTION MEDICATIONS PRIOR TO SURGERY EXCEPT THE FOLLOWING Hold all vitamins and supplements for 3 days per anesthesiologist. Medications to discontinue per physician __Aspirin as instructed by 's office.____ Date to take last dose Please no make-up, nail syrian, hairspray, perfume, deodorant, or body powder the day of surgery.? No jewelry (including any body piercings) or valuables the day of surgery, leave them at home.? Please take a shower or bath the night before, or the morning of, surgery with an antibacterial soap.? Wear comfortable, loose fitting clothing. - Jewelry must be removed prior to entering the operating room.? Rings and piercings that are not removed may be cut off. - The hospital will not accept responsibility for valuables.? - Please leave all valuables, including medications, at home the day of surgery. If you are going home after surgery, a licensed rivet driver must drive you home.? - NO public transportation without another adult if you receive anesthesia. - We recommend that an adult stay with you for 24 hours following discharge. - We also recommend that you do not drive, make important decision, drink alcoholic beverages, or take any drugs that were not prescribed by your health care provider for at least 24 hours after your discharge time. Follow any additional instructions given to you from your surgeon. Telephone instructions given to __Christopher__and asked if any additional questions and then verbalized understanding. Patient advised to call surgeon office or pre surgery nurse liaison [phone] if any additional questions.
--- NOTE | ~2024-08-19 | XR_ITS ---
INTRAOPERATIVE FLUOROSCOPY: CLINICAL HISTORY: 49 years old Male; L3,4,5 BLOCKS/BILAT FACET JTS PROCEDURE COMMENTS: Limited intraoperative fluoroscopy of the lumbar spine was performed. CUMULATIVE DOSE: 26 mGy FLUOROSCOPY TIME: 41 seconds FINDINGS/IMPRESSION: Please refer to operative note for further details. Reviewed, dictated and finalized at location A.
--- OUTSIDE RECORDS SUMMARY | 2024-08-19 01:33 | XMS_ITS | Clinical Summary ---
Author Organization [facility] Address [address] [place] [address] Care Team Providers Care Loan Adviser Name Role Phone Kymberly Vaughan MD Unavailable Marilee Vale MD Primary Care Provider + [phone] Allergies Active Allergy Reactions Criticality Noted Date Comments Penicillins Hives Medium Medications albuterol HFA (PROVENTIL HFA,VENTOLIN HFA) 90 mcg/actuation inhaler 90 mcg. 0 Inhaler 0 6 Active Additional Information Patient taking differently: 2 puff Every 4 hours PRN, Reported on 08/27/[address] (CYMBALTA) 60 mg capsule Take 60 mg by mouth daily 0 Active gabapentin (NEURONTIN) 100 mg capsule Take 1 capsule by mouth 3 (three) times a day 0 Active Spiriva Respimat 1.25 mcg/actuation inhaler Inhale 2 puffs daily 0 Active carvediloL (COREG) 6.25 mg tablet Take 6.25 mg by mouth 2 (two) times a day with meals Per [facility] pharmacy this medication has not been filled since July. Active tiZANidine (ZANAFLEX) 4 mg tabletIndications :Muscle Spasm Take 1 tablet (4 mg total) by mouth every 6 (six) hours as needed for muscle spasms 12 tablet 0 Active umeclidinium-olivier nteroL (ANORO ELLIPTA) 62.5-25 mcg/actuation blister with device Inhale 1 puff daily as needed Active aspirin 81 mg enteric coated tablet Take 81 mg by mouth daily Active metFORMIN (FORTAMET) 500 mg 24 hr tablet Take 500 mg by mouth daily with breakfast Active nicotine (NICODERM CQ) 14 mgIndications:Paul otine [facility] 1 patch on the skin daily 30 patch 1 Active losartan (COZAAR) 25 mg tablet Take 25 mg by mouth daily Active furosemide (LASIX) 40 mg tablet Take 40 mg by mouth daily Active spironolactone (ALDACTONE) 25 mg tablet Take 25 mg by mouth daily Active pantoprazole DR (PROTONIX) 40 mg EC tablet Take 40 mg by mouth daily Active metoclopramide (REGLAN) 10 mg tabletIndications :Diabetic Gastroparesis Take 1 tablet (10 mg total) by mouth every 6 (six) hours 30 tablet 4 Active famotidine (PEPCID) 20 mg tabletIndications :Dyspepsia Take 1 tablet (20 mg total) by mouth 2 (two) times a day 60 tablet 4 Active Active Problems Problem Noted Date Diagnosed Date Acute exacerbation of chronic low back pain 04/17 Lumbar radiculopathy, chronic 04/27/2023 Acute respiratory failure with hypoxia Primary hypertension 01/27/2021 Type 2 diabetes mellitus wit hout complication, without long-term current use of insulin 01/27/2021 Chronic systolic CHF (congestive heart failure) 01/27/2021 Acute combined systolic and diastolic heart fail ure 08/29/2020 Shortness of breath 08/26/2020 COPD exacerbation ([facility]) 08/26/2020 Bronchitis 08/26/2020 Asthma 08/26/2020 Depression 08/26/2020 Severe sepsis 08/26/2020 Right medial knee pain 07/26/2020 Sprain of medial collateral ligament of right kn ee 07/26/2020 Lumbar strain, initial encounter 04/13/2019 Hernia of anterior abdominal wall 11/23/2015 Overview (07/21/2016): Ventral hernia Cellulitis of lower extremity Acute on chronic diastolic congestive heart fail ure Morbid obesity with BMI of 50.0-59.9, adult ([facility]) Immunizations Immunization Administration Dates Next Due Influenza, Quadrivalent, Spl it, Preservative Free, Intramuscular 01/28/2021 Surgical History Surgery Date Site/Laterality Comments TONSILLECTOMY Tonsillectomy OTHER SURGICAL HISTORY Heart Catherizations x 2 / No Stents OTHER SURGICAL HISTORY Laparoscopic ventral hernia repair Medical History Medical History Date Comments Asthma Asthma; Comments : GDS 11/23/2015 - CHF (congestive heart failure) (HCC) COPD (chronic obstructive pu lmonary disease) (HCC) Depression Diabetes mellitus (HCC) Coronary artery disease Gout Morbid obesity (HCC) Flu 06/24/2023 Acute exacerbation of chroni c low back pain Renal disorder Family History Medical History Relation Name Comments Diabetes Father Diabetes mellit us; Heart disease Father Heart disease; Relation Name Status Comments Father Social History Tobacco Use Types Packs/Day Years Used Date Smoking Tobacco: Former Cigarettes 0.5 30 Smokeless Tobacco: Never Tobacco Cessation:Counseling Given: Not Answered Comments:Smoking History Packs/day: 0.5 Packs Alcohol Use Standard Drinks/Week Comments Not Currently 0 (1 standard drink = 0.6 oz pur e alcohol) rare Social Connection and Isolat ion Panel [NHANES] Answer Date Recorded In a typical week, how many times do you talk on the phone with family, friends, or neighbors? More than three times a week 01/28/2021 How often do you get togethe r with friends or relatives? More than three times a week 01/28/2021 How often do you attend chur ch or restorationist services? Never 01/28/2021 Do you belong to any clubs o r organizations such as hindu groups, unions, fraternal or athletic groups, or school groups? No 01/28/2021 How often do you attend meet ings of the clubs or organizations you belong to? Never 01/28/2021 Are you , , di vorced, , never , or living with a partner? 01/28/2021 AUDIT-C Answer Date Recorded Q1: How often do you have a drink containing alc ohol? Never 08/26/2020 Average Number of Drinks Not on file 021 Q3: How often do you have si x or more drinks on one occasion? Never 08/26/2020 Overall Financial Resource Strain (CARDIA) Answe r Date Recorded How hard is it for you to pa y for the very basics like food, housing, medical care, and heating? Not hard at all 01/28/2021 Hunger Vital Sign Answer Date Recorded Within the past 12 months, y ou worried that your food would run out before you got the money to buy more. Never true 01/29/20 21 Within the past 12 months, t he food you bought just didn't last and you didn't have money to get more. Never true 01/28/2021 PRAPARE - Transportation Answer Date Re corded In the past 12 months, has l ack of transportation kept you from medical appointments or from getting medications? No 01/15 In the past 12 months, has l ack of transportation kept you from meetings, work, or from getting things needed for daily living? No 01/28/2021 Personal Safety Answer Date Recorded Have you ever been in or are you currently in a harmful physical or emotional relationship or is someone making you feel afraid or unsafe? 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 Gender Identity Not on file Sexual Orientation Not on file Obstetrics History Last Filed Vital Signs Vital Sign Reading Time Taken Comments Blood Pressure 160/81 07/01/2023 11:35 PM CDT Pulse 92 07/01/2023 11:35 PM CDT Temperature 36.6 C (97.8 F) 07/01/2023 4:51 PM CDT Respiratory Rate 20 07/01/2023 11:35 PM CDT Oxygen Saturation 100% 07/01/2023 11:35 PM CDT Inhaled Oxygen Concentration - - Weight 172.4 kg (380 lb) 07/01/2023 4:51 PM CDT Height 182.9 cm (6') 07/01/2023 4:51 PM CDT Body Mass Index 51.54 07/01/2023 4:51 PM CDT Plan of Treatment Health Maintenance Due Date Last Done Comments Albumin Creatinine Ratio, Urine 1977 Colon Cancer Screening-Colonoscopy 1977 Depression Screening 1977 Hepatitis C Screening 1977 Dilated Eye Exam 1977 Foot Exam 1977 Lipid Panel 1977 DTaP/Tdap/Td Vaccine (1 - Tdap) 1988 Hepatitis B Screening 1995 Regular Well Visit/Exam 18-64 1995 Pneumococcal vaccine <65 (1 of 2 - PCV) 1996 Hemoglobin A1C 03/02/2021 08/30/2020 Influenza Vaccine (#1) 2023 01/28/2021, 2012 eGFR 06/30/2024 07/01/2023, 01/15, 01/30/2021, Additional history exists Procedures Procedure Name Priority Date/Time Associated Diagnosis Comments EGFR STAT 07/01/2023 5:03 PM CDT HEMOGLOBIN A1C Add-On 08/30/2020 3:36 AM CDT from Last 3 Months or Most Recently Relevant to Health Maintenance Results * eGFR (07/01/2023 5:03 PM CDT) eGFR 118 mL/min/1. 73 m2 Comment: Interpretive Data Reference Interval Normal >/= 90 mL/min/1.73m2 Mildly decreased* 60 - 89 mL/min/1.73m2 Mildly to moderately decreased 45 - 59 mL/min/1.73m2 Moderately to severely decreased 30 - 44 mL/min/1.73m2 Severely decreased 15 - 29 mL/min/1.73m2 Kidney Failure < 15 mL/min/1.73m2 *Relative to young adult level Estimated glomerular filtration rate is determined by the 2020 CKD-EPI equation recommended by the National Kidney Foundation (A Unifying Approach to GFR Estimation: Recommendations of the NKF-ASK Task Force on Reassessing the Inclusion of Race in Diagnosing Kidney Disease, JASN 2020). The CKD-EPI equation should not be used for patients with unstable renal function and has not been validated in children and those over 70. Current interpretive data was last reviewed 2021. Blood 07/01/2023 5:03 PM CDT 07/01/2023 5:40 PM CDT us Roslyn Boyce MD LAB BLOOD ORDERABLES Final Resu lt [facility] [address] Department [place] [address] * (ABNORMAL) Hemoglobin A1c (08/30/2020 3:36 AM CDT) Hgb A1C 7.4(H) 4.0 - 5.6 % [facility] Estimated Average Glucose 166 mg/dL [facility] Comment: The ADA recommends reporting an estimated Average Glucose (eAG) with all Hemoglobin A1c results using the equation derived from a study of 507 normal and diabetic adults. Minority populations were underrepresented and children were not included. (Diabetes Care 31:5372-8233, 2008). The eAG is not equivalent to a fasting glucose. Blood specimen (specimen) 08/30/2020 3:36 AM CDT 08/30/2020 4:56 AM CDT Devendra Fulton MD LAB BLOOD ORD ERABLES Final Result [facility] [address] [facility] Department [place] [address] from Last 3 Months or Most Recently Relevant to Health Maintenance Insurance JAMILAH HARDIN [facility] [place] [address] [address] [place] [address] MEDICARE Advance Directives For more information, please contact: [phone] * Full Code (Latest Code Status on File) Date Activated Date Inactivated Comments 01/27/2021 1:54 PM 01/31/2021 4:21 PM * Full Code Date Activated Date Inactivated Comments 08/26/2020 8:05 PM 08/31/2020 6:34 PM * Full Code Date Activated Date Inactivated Comments 11/18/2019 9:22 AM 11/19/2019 10:32 PM Care Teams Loan Adviser Relationship Specialty Start Date End Date Marilee Vale MD [address] [place] [address] PCP - General Emergency Medicine 07/01/23 Kymberly Vaughan MD Consulting Physician Sleep Medicine 11/19/19
--- OUTSIDE RECORDS SUMMARY | 2024-08-19 01:33 | XMS_ITS | Referral Summary ---
Author Organization [facility] Address [address] [place] [address] Care Team Providers Care Office Technology Professor Name Role Phone Kymberly Vaughan MD Unavailable Marilee Vale MD Primary Care Provider + [phone] Allergies Active Allergy Reactions Criticality Noted Date [...] (two) times a day with meals Per [facility] this medication has not been filled [...] 08/29/2020 Shortness of breath 08/26/2020 COPD exacerbation ([facility]) 08/26/2020 Bronchitis 08/26/2020 Asthma 08/26/2020 Depression 08/26/2020 Severe sepsis 08/26/2020 Right medial knee pain 07/26/2020 Sprain of medial collateral ligament of right kn ee 07/26/2020 Lumbar strain, initial encounter 04/13/2019 Hernia of anterior abdominal wall 11/23/2015 Overview (07/21/2016): Ventral hernia Cellulitis of lower extremity Acute on chronic diastolic congestive heart fail ure Morbid obesity with BMI of 50.0-59.9, adult ([facility]) Immunizations Immunization Administration Dates Next Due Influenza, Quadrivalent, Spl it, Preservative Free, Intramuscular 01/28/2021 Social History Tobacco Use Types Packs/Day Years [...] often do you attend chur ch or zoroastrianism services? Never 01/28/2021 Do you belong to any clubs o r organizations such as yarsani groups, unions, fraternal or athletic groups, or [...] on file Legal Sex Male 3:17 AM [employer]STRU[employer] Gender Identity Not on file Sexual Orientation Not on file Last Filed Vital Signs Vital Sign Reading [...] 07/01/2023 4:51 PM CDT Plan of Treatment Not on file Procedures Procedure Name Priority Date/Time Associated Diagnosis [...] of Race in Diagnosing Kidney Disease, JASN 202). The CKD-EPI equation should not be used for patients with unstable renal function and has not been validated in children and those over 70. Current interpretive data was last reviewed 2021. Blood 07/01/2023 5:03 PM CDT 07/01/2023 5:40 PM CDT Roslyn Boyce MD LAB BLOOD ORDERABLES Final Resu lt Performing Organization Address City/[facility] Co de Phone Number [facility] [id number] Department [place] [address] * (ABNORMAL) Hemoglobin A1c (08/30/2020 3:36 AM CDT) Hgb A1C 7.4(H) 4.0 - 5.6 % [facility] Estimated Average Glucose 166 mg/dL [facility] Comment: The ADA recommends reporting an estimated Average Glucose (eAG) with all Hemoglobin A1c results using the equation derived from a study of 507 normal and diabetic adults. Minority populations were underrepresented and children were not included. (Diabetes Care 31:0646-5338, 2008). The eAG is not equivalent to a fasting glucose. Blood specimen (specimen) 08/30/2020 3:36 AM CDT 08/30/2020 4:56 AM CDT Devendra Fulton MD LAB BLOOD ORD ERABLES Final Result [facility] [address] [facility] [place] [address] from Last 3 Months or Most Recently Relevant to Health Maintenance [place] [address] [place] [address] PLAN MEDICARE Advance Directives For more information, please contact: [phone] * Full Code (Latest Code Status on File) Date Activated Date Inactivated Comments 01/27/2021 1:54 PM 01/31/2021 4:21 PM * Full Code Date Activated Date Inactivated Comments 08/26/2020 8:05 PM 08/31/2020 6:34 PM * Full Code Date Activated Date Inactivated Comments 11/18/2019 9:22 AM 11/19/2019 10:32 PM Care Teams Office Technology Professor Relationship Specialty Start Date End Date Marilee Vale MD [address] [place] [id number] PCP - General Emergency Medicine 07/01/23 Kymberly Vaughan MD Consulting Physician Sleep Medicine 11/19/19
--- OUTSIDE RECORDS SUMMARY | 2024-08-19 01:34 | XMS_ITS | CONTINUITY OF CARE DOCUMENT ---
Author Name owen, owen Address Unknown Organization [facility] Address [address] [place] [address] Phone [phone] Care Team Providers Care Physical Science Professor Name Role Phone José Manuel Edge MD Unavailable [phone] YASH SALEH Unavailable [phone] YASH SALEH Unavailable [phone] PROBLEMS Condition Status Date Provider Notes Preoperative cardiovascular evaluation active Henny Yañez HTN- 07/24 ECHO UNCHANGED 05/26 ECHO EF 46 RSVP 30 LVH completed - Ivan Ruvalcaba MD CHEST PAIN-08/23 NUC BORDERLINE completed - Ivan Ruvalcaba MD OBESITY;WILL CONSIDER MEDIFAST active Ivan Ruvalcaba MD CMYOPATHY-08/26 ECHO EF 45 -- EF 50% 07/2009 active José Manuel Edge MD RENAL FAILURE CHRONIC-10/23 LATA US NEG active ? 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 SALES DIRECTOR Preop exam active [facility] Edema active [facility] ENCOUNTERS Date Type Provider Location Encounter Diag nosis - In-person encounter Office Visit José Manuel Edge MD [place] [facility] - In-person encounter Office Visit José Manuel Edge MD [place] [facility] - In-person encounter Office Visit José Manuel Edge MD [facility] - In-person encounter Office Visit José Manuel Edge MD [facility] Family History of CVA or Stroke: - In-person encounter Office Visit José Manuel Edge MD [place] [facility] CAD - Cath 2020 no CAD - In-person encounter Office Visit José Manuel Edge MD [place] [facility] - In-person encounter Office Visit José Manuel Edge MD [place] [facility] CMYOPATHY-08/26 ECHO EF 45 -- EF 50% 07/2009DYSPNEA ON EXERTION;NEG HERMELINDA, LIKELY DUE TO WEIGHTDVT;NEG VDCAD - Cath 2020 no CADANGINA PECTORIS;WILL TRY ECPDIARRHEA, CHRONIC;WILL CHECK GBPreop examEdema - In-person encounter Office Visit José Manuel Edge MD [place] [facility] - In-person encounter Office Visit José Manuel Edge MD [place] - In-person encounter Office Visit Ivan Ruvalcaba MD [place] HTN- 07/24 ECHO UNCHANGED 05/26 ECHO EF 46 RSVP 30 LVHCHEST PAIN-08/23 NUC BORDERLINEOBESITY;WILL CONSIDER MEDIFASTCMYOPATHY-08/26 ECHO EF 45 -- EF 50% 07/2009LEG PAIN-07/25 MICHAEL DOP NEGHTN ESSENTIAL-10/23 LATA ANGIO NEGDYSPNEA ON EXERTION;NEG HERMELINDA, LIKELY DUE TO WEIGHTHTN ESSENTIAL;LABS PER PRIMARY, NEG DUPLEXCHF-08/26 NUC SM REV INF DEF EF 45PNEUMONIA;WILL FU CXRSINUS TACHYCARDIACAD - Cath 2020 no CADANGINA PECTORIS;WILL TRY ECP - In-person encounter Office Visit José Manuel Edge MD [place] [facility] LEG PAIN-07/25 MICHAEL DOP NEG - In-person encounter Office Visit Ivan Ruvalcaba MD [place] - In-person encounter Office Visit José Manuel Edge MD [place] [facility] RENAL FAILURE CHRONIC-10/23 LATA US NEG VITAL SIGNS Date Observation Value Provider Body Mass Index (Ratio) 52.21 kg/m2 Manjeet blankenship Taco blood pressure, diastolic 73 mm[Hg] Albina nkLogic blood pressure, systolic 138 mm[Hg] Deena kLogic blood pressure, cuff size large Alfred [facility] blood pressure, diastolic 73 mm[Hg] Alfred et blood pressure, systolic 138 mm[Hg] Arron singh pulse rate 83 /min Artem respiratory rate E&M 12 /min oxygen saturation, oximetry 95 % weight E&M 385 [lb_av] Artem height E&M 72 [in_i] Artem y Body Mass Index (Ratio) 51.80 kg/m2 Baldev Singh blood pressure, cuff size regular Kaylynn Duarte blood pressure, diastolic 74 mm[Hg] Kaylynn Duarte blood pressure, systolic 144 mm[Hg] She astrid Duarte pulse rate 96 /min Hansa Duarte respiratory rate E&M 20 /min Hansa Duarte oxygen saturation, oximetry 96 % Hansa Duarte weight E&M 382 [lb_av] Hansa Duarte height E&M 72 [in_i] Hansa Duarte Body Mass Index (Ratio) 54.79 kg/m2 Baldev Hancockteddy blood pressure, cuff size large Gunnar rri Chalo blood pressure, diastolic 100 mm[Hg] Gunnar rri Lyndsayeldyoel blood pressure, systolic 184 mm[Hg] Chani ri Chalo Inhaled O2 2.5 L/min Ruth Negrito lder oxygen saturation, oximetry 98 % Ruth Chalo respiratory rate E&M 18 /min Ruth lomeli pulse rate 100 /min Ruth Negrito lder weight E&M 404 [lb_av] Ruth Lyndsaye lder height E&M 72 [in_i] Ruth Mahan lder Body Mass Index (Ratio) 57.91 kg/m2 Laureen Yañez blood pressure, diastolic 105 mm[Hg] Albina nkLogcarmela blood pressure, systolic 160 mm[Hg] Deena kLogcarmela blood pressure, cuff size large Hilda Paez blood pressure, diastolic 105 mm[Hg] Hilda Paez blood pressure, systolic 160 mm[Hg] Elsa Paez oxygen saturation, oximetry 91 % Devin Paez pulse rate 111 /min Devin eubanks respiratory rate E&M 20 /min Shaji Paez weight E&M 427 [lb_av] Devin eubanks height E&M 72 [in_i] Devin eubanks Body Mass Index (Ratio) 55.46 kg/m2 Laureen chitra Pari blood pressure, diastolic 98 mm[Hg] Li nkLogic blood pressure, systolic 156 mm[Hg] Deena kLogic blood pressure, cuff size large Ke rri Gruenenfelder blood pressure, diastolic 98 mm[Hg] Ke rri Gruenenfelder blood pressure, systolic 156 mm[Hg] Chani ri Sidnezariaelder oxygen saturation, oximetry 93 % Ruth Chalo respiratory rate E&M 16 /min Ruth G armani pulse rate 104 /min Ruth Lyndsaye lder weight E&M 409 [lb_av] Ruth Lyndsaye lder height E&M 72 [in_i] Ruth Lyndsaye lder blood pressure, diastolic 96 mm[Hg] Ke rri Gruenenfelder blood pressure, systolic 132 mm[Hg] Chani ri Sidnezariaelder pulse rate 95 /min Ruth Gruenenfe lder oxygen saturation, oximetry 97 % Ruth Daier respiratory rate E&M 18 /min Ruth G christianoenenfelder Body Mass Index (Ratio) 46.92 kg/m2 Zamudio i Chalo weight E&M 346 [lb_av] Ruth Gruenenfe lder height E&M 72 [in_i] Ruth Josenfe lder pulse rate #2 89 Masood Chen blood pressure, josé tolic, second observation 83 mm[Hg] Masood Manacop blood pressure, syst olic, second observation 114 mm[Hg] Masood [place] oxygen saturation, oximetry 96 % Masood [place] pulse rate 96 /min Masood [place] blood pressure, diastolic 96 mm[Hg] Mónica seph [place] blood pressure, systolic 128 mm[Hg] Deni eph [place] pulse rate #2 80 Masood [place] blood pressure, josé tolic, second observation 85 mm[Hg] Masood [place] blood pressure, syst olic, second observation 148 mm[Hg] Masood [place] oxygen saturation, oximetry 96 % Masood [place] pulse rate 97 /min Masood [place] blood pressure, diastolic 97 mm[Hg] Mónica seph [place] blood pressure, systolic 156 mm[Hg] Deni eph [place] pulse rate #2 96 Masood [place] blood pressure, josé tolic, second observation 93 mm[Hg] Masood [place] blood pressure, syst olic, second observation 154 mm[Hg] Masood [place] oxygen saturation, oximetry 96 % Masood [place] pulse rate 100 /min Masood [place] blood pressure, diastolic 77 mm[Hg] Mónica seph [place] blood pressure, systolic 129 mm[Hg] Deni eph [place] pulse rate #2 89 Masood [place] blood pressure, josé tolic, second observation 87 mm[Hg] Masood [place] blood pressure, syst olic, second observation 149 mm[Hg] Maosod [place] oxygen saturation, oximetry 96 % Masood [place] pulse rate 86 /min Masood [place] blood pressure, diastolic 96 mm[Hg] Mónica seph [place] blood pressure, systolic 160 mm[Hg] Deni eph [place] pulse rate #2 83 Masood [place] blood pressure, josé tolic, second observation 84 mm[Hg] Masood [place] blood pressure, syst olic, second observation 132 mm[Hg] Masood [place] oxygen saturation, oximetry 96 % Masood [place] pulse rate 85 /min Masood [place] blood pressure, diastolic 85 mm[Hg] Mónica seph [place] blood pressure, systolic 133 mm[Hg] Deni eph [place] pulse rate #2 96 Masood [place] blood pressure, josé tolic, second observation 90 mm[Hg] Masood [place] blood pressure, syst olic, second observation 122 mm[Hg] Masood [place] oxygen saturation, oximetry 96 % Canton Man[place] pulse rate 98 /min Canton [place] blood pressure, diastolic 88 mm[Hg] Mónica seph [place] blood pressure, systolic 132 mm[Hg] Deni eph [place] pulse rate #2 92 Joaquin McPherso n blood pressure, josé tolic, second observation 90 mm[Hg] Joaquin Brandt blood pressure, syst olic, second observation 150 mm[Hg] Joaquin Brandt oxygen saturation, oximetry 95 % Joaquin Brandt pulse rate 95 /min Joaquin Brandt blood pressure, diastolic 89 mm[Hg] Ra shaunay Brandt blood pressure, systolic 135 mm[Hg] Mateo mccarty Brandt pulse rate #2 88 Joaquin McPherso n blood pressure, josé tolic, second observation 88 mm[Hg] Joaquin Brandt blood pressure, syst olic, second observation 133 mm[Hg] Joaquin Brandt oxygen saturation, oximetry 95 % Joaquin Brandt pulse rate 93 /min Joaquin Brandt blood pressure, diastolic 90 mm[Hg] Ra ronnie Brandt blood pressure, systolic 140 mm[Hg] Mateo Brandt blood pressure, diastolic, left arm 77 mm [Hg] Ed [facility] blood pressure, systolic, left arm 119 mm [Hg] Ed [facility] blood pressure, diastolic, right arm 80 m m[Hg] Ed [facility] blood pressure, systolic, right arm 120 m m[Hg] Ed [facility] blood pressure, diastolic 77 mm[Hg] Baer [place] blood pressure, systolic 119 mm[Hg] Jairo [facility] pulse rate 86 /min Ed [facility] oxygen saturation, oximetry 94 % [facility] respiratory rate E&M 16 /min Ed [facility] weight E&M 293 [lb_av] [facility] B[facility] blood pressure, diastolic, left arm 102 m m[Hg] Nereyda Garcia blood pressure, systolic, left arm 132 mm [Hg] Nereyda Garcia blood pressure, diastolic, right arm 94 m m[Hg] Nereyda Garcia blood pressure, systolic, right arm 140 m m[Hg] Nereyda Garcia blood pressure, diastolic 102 mm[Hg] Chapincito Garcia blood pressure, systolic 132 mm[Hg] Raiza Garcia pulse rate 95 /min Nereyda Garcia oxygen saturation, oximetry 98 % Nereyda Garcia respiratory rate E&M 18 /min Nereyda terry weight E&M 295 [lb_av] Nereyda Garcia pulse rate #2 95 Joaquin solorio blood pressure, josé tolic, second observation 88 mm[Hg] Joaquin Brandt blood pressure, syst olic, second observation 141 mm[Hg] Joaquin Brandt oxygen saturation, oximetry 96 % Joaquin Brandt pulse rate 93 /min Joaquin Brandt blood pressure, diastolic 93 mm[Hg] Ra ndy Brandt blood pressure, systolic 157 mm[Hg] Ran dy Brandt pulse rate #2 93 Joaquin McPherso n blood pressure, josé tolic, second observation 88 mm[Hg] Joaquin Brandt blood pressure, syst olic, second observation 139 mm[Hg] Joaquin Brandt oxygen saturation, oximetry 96 % Joaquin Brandt pulse rate 90 /min Joaquin Brandt blood pressure, diastolic 90 mm[Hg] Ra ndy Brandt blood pressure, systolic 155 mm[Hg] Ran dy Brandt pulse rate #2 87 Joaquin McPherso n blood pressure, josé tolic, second observation 85 mm[Hg] Joaquin Brandt blood pressure, syst olic, second observation 130 mm[Hg] Joaquin Brandt oxygen saturation, oximetry 96 % Joaquin Brandt pulse rate 88 /min Joaquin Brandt blood pressure, diastolic 90 mm[Hg] Ra ndy Brandt blood pressure, systolic 151 mm[Hg] Ran dy Brandt pulse rate #2 90 Joaquin McPherso n blood pressure, josé tolic, second observation 88 mm[Hg] Joaquin Brandt blood pressure, syst olic, second observation 127 mm[Hg] Joaquin Brandt oxygen saturation, oximetry 96 % Joaquin Brandt pulse rate 95 /min Joaquin Brandt blood pressure, diastolic 90 mm[Hg] Ra ndy Brandt blood pressure, systolic 155 mm[Hg] Ran dy Brandt pulse rate #2 86 Joaquin McPherso n blood pressure, josé tolic, second observation 101 mm[Hg] Joaquin Brandt blood pressure, syst olic, second observation 140 mm[Hg] Joaquin Brandt oxygen saturation, oximetry 96 % Joaquin Brandt pulse rate 93 /min Joaquin Brandt blood pressure, diastolic 99 mm[Hg] Ra ndy Brandt blood pressure, systolic 127 mm[Hg] Ran dy Brandt pulse rate #2 88 Joaquin McPherso n blood pressure, josé tolic, second observation 103 mm[Hg] Joaquin Brandt blood pressure, syst olic, second observation 138 mm[Hg] Joaquin Brandt oxygen saturation, oximetry 95 % Joaquin Brandt pulse rate 90 /min Joaquin Brandt blood pressure, diastolic 100 mm[Hg] Ra ndy Brandt blood pressure, systolic 129 mm[Hg] Ran dy Brandt pulse rate #2 81 Joaquin McPherso n blood pressure, josé tolic, second observation 95 mm[Hg] Joaquin Brandt blood pressure, syst olic, second observation 140 mm[Hg] Joaquin Brandt oxygen saturation, oximetry 96 % Joaquin Brandt pulse rate 84 /min Joaquin Brandt blood pressure, diastolic 90 mm[Hg] Ra ndy Brandt blood pressure, systolic 134 mm[Hg] Ran dy Brandt pulse rate #2 87 Joaquin McPherso n blood pressure, josé tolic, second observation 86 mm[Hg] Joaquin Brandt blood pressure, syst olic, second observation 139 mm[Hg] Joaquin Brandt oxygen saturation, oximetry 96 % Joaquin Brandt pulse rate 95 /min Joaquin Brandt blood pressure, diastolic 90 mm[Hg] Ra ndy Brandt blood pressure, systolic 132 mm[Hg] Ran dy Brandt pulse rate #2 99 Joaquin McPherso n blood pressure, josé tolic, second observation 85 mm[Hg] Joaquin Brandt blood pressure, syst olic, second observation 130 mm[Hg] Joaquin Brandt oxygen saturation, oximetry 96 % Joaquin Brandt pulse rate 95 /min Joaquin Brandt blood pressure, diastolic 74 mm[Hg] Ra ndy Brandt blood pressure, systolic 120 mm[Hg] Ran dy Brandt pulse rate #2 80 Joaquin McPherso n blood pressure, josé tolic, second observation 90 mm[Hg] Joaquin Brandt blood pressure, syst olic, second observation 145 mm[Hg] Joaquin Brandt oxygen saturation, oximetry 95 % Joaquin Brandt pulse rate 100 /min Joaquin Brandt blood pressure, diastolic 81 mm[Hg] Ra ndy Brandt blood pressure, systolic 126 mm[Hg] Ran dy Brandt pulse rate #2 93 Joaquin McPherso n blood pressure, josé tolic, second observation 79 mm[Hg] Joaquin Brandt blood pressure, syst olic, second observation 121 mm[Hg] Joaquin Brandt oxygen saturation, oximetry 96 % Joaquin Brandt pulse rate 90 /min Joaquin Brandt blood pressure, diastolic 83 mm[Hg] Ra ndy Brandt blood pressure, systolic 135 mm[Hg] Ran dy Brandt pulse rate #2 71 Joaquin McPherso n blood pressure, josé tolic, second observation 85 mm[Hg] Joaquin Brandt blood pressure, syst olic, second observation 130 mm[Hg] Joaquin Brandt oxygen saturation, oximetry 95 % Joaquin Brandt pulse rate 80 /min Joaquin Brandt blood pressure, diastolic 83 mm[Hg] Ra ndy Brandt blood pressure, systolic 127 mm[Hg] Ran dy Brandt pulse rate #2 70 Joaquin McPherso n blood pressure, josé tolic, second observation 88 mm[Hg] Joaquin Brandt blood pressure, syst olic, second observation 128 mm[Hg] Joaquin Brandt oxygen saturation, oximetry 95 % Joaquin Brandt pulse rate 83 /min Joaquin Brandt blood pressure, diastolic 82 mm[Hg] Ra ndy Brandt blood pressure, systolic 123 mm[Hg] Ran dy Brandt pulse rate #2 85 Joaquin McPherso n blood pressure, josé tolic, second observation 85 mm[Hg] Joaquin Brandt blood pressure, syst olic, second observation 135 mm[Hg] Joaquin Brandt oxygen saturation, oximetry 95 % Joaquin Brandt pulse rate 90 /min Joaquin Brandt blood pressure, diastolic 90 mm[Hg] Ra ndy Brandt blood pressure, systolic 141 mm[Hg] Ran dy Brandt pulse rate #2 93 Joaquin McPherso n blood pressure, josé tolic, second observation 86 mm[Hg] Joaquin Brandt blood pressure, syst olic, second observation 131 mm[Hg] Joaquin Brandt oxygen saturation, oximetry 95 % Joaquin Brandt pulse rate 90 /min Joaquin Brandt blood pressure, diastolic 73 mm[Hg] Ra ndy Brandt blood pressure, systolic 121 mm[Hg] Ran dy Brandt pulse rate #2 90 Joaquin McPherso n blood pressure, josé tolic, second observation 86 mm[Hg] Joaquin Brandt blood pressure, syst olic, second observation 136 mm[Hg] Joaquin Brandt oxygen saturation, oximetry 95 % Joaquin Brandt pulse rate 99 /min Joaquin Brandt blood pressure, diastolic 75 mm[Hg] Ra ndy Brandt blood pressure, systolic 112 mm[Hg] Ran dy Brandt pulse rate #2 95 Joaquin McPherso n blood pressure, josé tolic, second observation 88 mm[Hg] Joaquin Brandt blood pressure, syst olic, second observation 150 mm[Hg] Joaquin Brandt oxygen saturation, oximetry 96 % Joaquin Brandt pulse rate 85 /min Joaquin Brandt blood pressure, diastolic 83 mm[Hg] Ra ndy Brandt blood pressure, systolic 133 mm[Hg] Ran dy Brandt pulse rate #2 83 Joaquin McPherso n blood pressure, josé tolic, second observation 90 mm[Hg] Joaquin Brandt blood pressure, syst olic, second observation 115 mm[Hg] Joaquin Brandt oxygen saturation, oximetry 96 % Joaquin Brandt pulse rate 88 /min Joaquin Brandt blood pressure, diastolic 80 mm[Hg] Ra ndy Brandt blood pressure, systolic 132 mm[Hg] Ran dy Brandt pulse rate #2 79 Joaquin McPherso n blood pressure, josé tolic, second observation 90 mm[Hg] Joaquin Brandt blood pressure, syst olic, second observation 140 mm[Hg] Joaquin Brandt oxygen saturation, oximetry 95 % Joaquin Brandt pulse rate 68 /min Joaquin Brandt blood pressure, diastolic 82 mm[Hg] Ra ndy Brandt blood pressure, systolic 128 mm[Hg] Ran dy Brandt pulse rate #2 98 Joaquin McPherso n blood pressure, josé tolic, second observation 100 mm[Hg] Joaquin Brandt blood pressure, syst olic, second observation 144 mm[Hg] Joaquin Brandt oxygen saturation, oximetry 95 % Joaquin Brandt pulse rate 100 /min Joaquin Brandt blood pressure, diastolic 90 mm[Hg] Ra ndy Brandt blood pressure, systolic 125 mm[Hg] Ran dy Brandt pulse rate #2 69 Joaquin McPherso n blood pressure, josé tolic, second observation 76 mm[Hg] Joaquin Brandt blood pressure, syst olic, second observation 131 mm[Hg] Joaquin Brandt oxygen saturation, oximetry 96 % Joaquin Brandt pulse rate 80 /min Joaquin Brandt blood pressure, diastolic 84 mm[Hg] Ra shaunay Brandt blood pressure, systolic 140 mm[Hg] Ran dy Brnadt pulse rate #2 77 Joaquin McPherso n blood pressure, josé tolic, second observation 85 mm[Hg] Joaquin Brandt blood pressure, syst olic, second observation 128 mm[Hg] Joaquin Brandt oxygen saturation, oximetry 94 % Joaquin Brandt pulse rate 91 /min Joaquin Brandt blood pressure, diastolic 83 mm[Hg] Ra ndy Brandt blood pressure, systolic 117 mm[Hg] Ran dy Brandt pulse rate #2 100 Joaquin McPherso n blood pressure, josé tolic, second observation 85 mm[Hg] Joaquin Brandt blood pressure, syst olic, second observation 125 mm[Hg] Joaquin Brandt oxygen saturation, oximetry 94 % Joaquin Brandt pulse rate 107 /min Joaquin Brandt blood pressure, diastolic 80 mm[Hg] Ra ronnie Brandt blood pressure, systolic 114 mm[Hg] Ran lul Brandt pulse rate #2 98 Joaquin Owusu n blood pressure, josé tolic, second observation 78 mm[Hg] Joaquin Brandt blood pressure, syst olic, second observation 139 mm[Hg] Joaquin Brandt oxygen saturation, oximetry 95 % Joaquin Brandt pulse rate 88 /min Joaquin Brandt blood pressure, diastolic 63 mm[Hg] Ra ronnie Brandt blood pressure, systolic 128 mm[Hg] Ran lul GardnerBrandt pulse rate #2 109 Jennifer Stalling s blood pressure, josé tolic, second observation 90 mm[Hg] Jennifer Cressey blood pressure, syst olic, second observation 143 mm[Hg] Jennifer Maite oxygen saturation, oximetry 96 % Jennifer Cressey pulse rate 85 /min Jennifer Cressey blood pressure, diastolic 60 mm[Hg] Be y Maite blood pressure, systolic 128 mm[Hg] Bet ty Cressey pulse rate #2 80 Jennifer Stalling s blood pressure, josé tolic, second observation 90 mm[Hg] Jennifer Maite blood pressure, syst olic, second observation 143 mm[Hg] Jennifer Cressey oxygen saturation, oximetry 96 % Jennifer Cressey pulse rate 93 /min Jennifer Cressey blood pressure, diastolic 86 mm[Hg] Be tty Maite blood pressure, systolic 129 mm[Hg] Bet ty Cressey pulse rate #2 88 Jennifer Stalling s blood pressure, josé tolic, second observation 84 mm[Hg] Jennifer Maite blood pressure, syst olic, second observation 134 mm[Hg] Jennifer Cressey oxygen saturation, oximetry 95 % Jennifer Cressey pulse rate 100 /min Jennifer Cressey blood pressure, diastolic 82 mm[Hg] Be y Cressey blood pressure, systolic 124 mm[Hg] [facility] pulse rate #2 97 Joaquin McPherso n blood pressure, josé tolic, second observation 89 mm[Hg] Joaquin Brandt blood pressure, syst olic, second observation 120 mm[Hg] Joaquin Brandt oxygen saturation, oximetry 95 % Joaquin Brandt pulse rate 99 /min Joaquin Brandt blood pressure, diastolic 79 mm[Hg] Ra ndy Brandt blood pressure, systolic 107 mm[Hg] Ran dy Brandt pulse rate #2 91 Joaquin McPherso n blood pressure, josé tolic, second observation 78 mm[Hg] Joaquin Brandt blood pressure, syst olic, second observation 125 mm[Hg] Joaquin Brandt oxygen saturation, oximetry 95 % Joaquin Brandt pulse rate 94 /min Joaquin Brandt blood pressure, diastolic 69 mm[Hg] Ra ndy Brandt blood pressure, systolic 109 mm[Hg] Ran dy Brandt pulse rate #2 87 Joaquin McPherso n blood pressure, josé tolic, second observation 85 mm[Hg] Joaquin Brandt blood pressure, syst olic, second observation 137 mm[Hg] Joaquin Brandt oxygen saturation, oximetry 96 % Joaquin Brandt pulse rate 90 /min Joaquin Brandt blood pressure, diastolic 75 mm[Hg] Ra ndy Brandt blood pressure, systolic 130 mm[Hg] Ran dy Brandt pulse rate #2 99 Joaquin McPherso n blood pressure, josé tolic, second observation 81 mm[Hg] Joaquinnila BaumannBrandt blood pressure, syst olic, second observation 141 mm[Hg] Joaquinnila BaumannBrandt oxygen saturation, oximetry 96 % Joaquinnila BaumannBrandt pulse rate 100 /min Joaquinnila BaumannBrandt blood pressure, diastolic 90 mm[Hg] Ra shaunay Brandt blood pressure, systolic 142 mm[Hg] Ran lul Brandt pulse rate #2 94 Joaquinnila Baumannso n blood pressure, josé tolic, second observation 78 mm[Hg] Joaquinnila BaumannBrandt blood pressure, syst olic, second observation 124 mm[Hg] Joaquinnila BaumannBrandt oxygen saturation, oximetry 96 % Joaquin Brandt pulse rate 94 /min Joaquin Brandt blood pressure, diastolic 78 mm[Hg] Ra ronnie Brandt blood pressure, systolic 124 mm[Hg] Ran lul Brandt blood pressure, diastolic, left arm 73 mm [Hg] Chalino Melendez RN blood pressure, systolic, left arm 118 mm [Hg] Chalino Melendez RN blood pressure, diastolic, right arm 82 m m[Hg] Chalino Melendez RN blood pressure, systolic, right arm 137 m m[Hg] Chalino Melendez RN blood pressure, diastolic 73 mm[Hg] Alfred Melendez RN blood pressure, systolic 118 mm[Hg] Chalino Melendez RN pulse rate 76 /min Chalino Melendez RN oxygen saturation, oximetry 95 % Chalino Melendez RN respiratory rate E&M 20 /min Chalino catherine RN weight E&M 319 [lb_av] Chalino Melendez RN blood pressure, diastolic, left arm 82 mm [Hg] Chalino Melendez RN blood pressure, systolic, left arm 106 mm [Hg] Chalino Melendez RN blood pressure, diastolic, right arm 81 m m[Hg] Chalino Melendez ELINA blood pressure, systolic, right arm 124 m m[Hg] Chalino Castanedaeloy ANTOINE blood pressure, diastolic 82 mm[Hg] Alfred solorio Melendez RN blood pressure, systolic 106 mm[Hg] Chalino Castanedaeloy ANTOINE pulse rate 126 /min Chalino Castanedaeloy ANTOINE oxygen saturation, oximetry 95 % Chalino Melendez RN respiratory rate E&M 20 /min Chalino catherine RN weight E&M 312 [lb_av] Chalino Castanedaeloy ANTOINE blood pressure, diastolic 87 mm[Hg] Alfred solorio Melendez RN blood pressure, systolic 145 mm[Hg] Chalino Melendez RN pulse rate 104 /min Chalino Melendez RN oxygen saturation, oximetry 97 % Chalino Castanedaeloy ANTOINE respiratory rate E&M 20 /min Chalino catherine RN weight E&M 299 [lb_av] Chalino Melendez RN ALLERGIES Allergy Name Onset Date Reaction Criticality Status PENICILLIN Low Criticality active RESULTS Date Observation Value Provider Reference Range Interpretation Location pro brain natriuretic peptide 241 pg/mL [facility] 0-86 High very low density lipoproteins 52.2 mg/dL [facility] 5.0 - 40.0 High LDL/HDL (low-density lipoprotein/high-den sity lipoprotein) ratio 4.3 RATIO [employer] - lipoprotein, beta, serum, point, quantitative, calculated 150.8 (?) [facility] 0.0 - 100.0 High HDL cholesterol, serum 35.0 mg/dL [facility] 35.0 - 55.0 cholesterol, serum 238.0 mg/dL [facility] 0.0 - 200.0 High triglyceride, serum, fasting 261.0 mg/dL [facility] 0.0 - 150.0 High hemoglobin A1C, blood, as % of total hemoglobin 5.7 % [employer] 4.0 - 6.0 nitrate usage None Masood Chen nitrate usage None Masood [facility] nitrate usage None Masood [facility] nitrate usage None Masood [facility] nitrate usage None Masood [facility] nitrate usage None Masood [facility] nitrate usage none Joaquin Brandt nitrate usage none Joaquin Brandt nitrate usage none Joaquin Brandt nitrate usage none Joaquin Brandt nitrate usage none Joaquin Brandt nitrate usage none Joaquin Brandt nitrate usage none Joaquin Brandt nitrate usage none Joaquni Brandt nitrate usage none Joaquin Brandt nitrate usage none Joaquin Brandt nitrate usage none Joaquin Brandt nitrate usage none Joaquin Brandt nitrate usage none Joaquin Brandt nitrate usage none Joaquin Brandt nitrate usage none Joaquin Brandt nitrate usage none Joaquin Brandt nitrate usage none Joaquin Brandt nitrate usage none Joaquin Brandt nitrate usage none Joaquin Brandt nitrate usage none Joaquin Brandt nitrate usage none Joaquin Brandt nitrate usage none Joaquin Brandt nitrate usage none Joaquin Brandt nitrate usage none Joaquin Brandt nitrate usage none Joaquin Brandt nitrate usage none Joaquin Brandt nitrate usage 0 Jennifer Arora nitrate usage none Joaquin Brandt nitrate usage none Joaquin Brandt nitrate usage none Joaquin Brandt nitrate usage none Joaquin Brandt nitrate usage none Joaquin Brandt anion gap, serum 12.2 Denetrchris Sterling globulins, serum, total 3.8 g/dL [facility] estimated glomerular filtration rate >60 [facility] alanine aminotransferase (SGPT), serum 59 1/L aspartate aminotransferase (SGOT), serum 19 1/L albumin/globulin ratio, serum 1.0 protein, total, serum 7.6 g/dL albumin, serum 3.8 g/dL bilirubin, serum, total 0.24 mg/dL [facility] alkaline phosphatase, serum 102 1/L calcium, serum 9.1 mg/dL [facility] blood glucose, fasting 94 mg/dL [facility] creatinine, serum 0.97 mg/dL [facility] urea nitrogen, blood 14.5 mg/dL [facility] carbon dioxide, serum, total 27 mmol/L chloride, serum 100 mmol/L potassium, serum 4.2 mmol/L sodium, serum 135 mmol/L B-type natriuretic peptide 7 pg/mL [facility] thyroid stimulating hormone, serum 1.25 u[IU]/mL [facility] platelet count 283 10*3/uL [facility] red blood cell distribution width 13.2 % mean corpuscular hemoglobin concentration, RBC 33.4 g/dL mean corpuscular hemoglobin, RBC 31.3 pg mean corpuscular volume, RBC 93.6 fL hematocrit, blood 42.2 % hemoglobin, blood 14.1 g/dL [facility] erythrocyte (RBC) count 4.51 10*6/mm3 monocytes as percent of blood leukocytes 4.2 % Darryl Sterling lymphocytes as percent of blood leukocytes 23.0 % Darryl Sterling leukocyte count, blood 14.8 10*3/mm3 Darryl Sterling HISTORY OF MEDICATION USE Medication Status Instructions Dates Provider Indications Com ments losartan 50 mg tablet active TAKE 1 TABLET BY MOUTH DAILY Ruth Isabel Ventolin HFA 90 mcg/actuation HFA aerosol inhaler active Inhale 2 puff using inhaler every four to six hours Ruth Isabel Coreg 6.25 mg tablet active Take 1 tablet by mouth twice a day Ruth Isabel Jardiance 10 mg tablet completed 1 tablet by mouth once a day - José Manuel Edge MD losartan 50 mg tablet completed Take 1 tablet by mouth once a day - Ruth Isabel furosemide 40 mg tablet active Take 1 tablet by mouth once a day Ruth Isabel furosemide 40 mg tablet completed - José Manuel Edge MD metformin 500 mg tablet active Take 1 tablet by mouth twice a day Ruth Isabel gabapentin 300 mg capsule active Take 1 capsule by mouth three times a day José Manuel Edge MD Lipitor 10 mg tablet completed 1 tablet by mouth once a day - Aminata Ventimiglia DIGITAL SALES DIRECTOR Zestril 10 mg tablet completed 1 tablet by mouth once a day - Aminata Ventimiglradha DIGITAL SALES DIRECTOR Ventolin HFA 90 mcg/actuation HFA aerosol inhaler completed 2 puff every four to six hours - Ruth Isabel ATORVASTATIN CALCIUM 10 MG ORAL TABLET completed 1 tab every evening at bedtime - Ruth Isabel PROAIR HFA AEROSOL SOLUTION completed 2 puffs twice daily as needed - Ruth Isabel CRESTOR 5 MG ORAL TABLET completed One tab daily - Tania Hauser RN ZESTRIL 10 MG ORAL TABLET completed Take 1 tablet by mouth once a day - Ruth Isabel PREDNISONE TABLET completed daily - Nereyda Garcia ZITHROMAX PACKET completed - Nereyda Garcia VICODIN TABS completed as needed - Chalino Melendez RN CLINDAMYCIN HCL CAPSULE completed one tab twice daily - Chalino Melendez RN INVEGA 3 MG ORAL TABLET EXTENDED RELEASE 24 HOUR completed 1 tablet by mouth every morning - Chalino Melendez RN INVEGA 9 MG ORAL TABLET EXTENDED RELEASE 24 HOUR completed 1 tablet by mouth every morning - Chalino Melendez RN BENZTROPINE MESYLATE 1 MG ORAL TABLET completed 1 tablet by mouth twice daily - Chalino Melendez RN HYDROXYZINE PAMOATE 50 MG ORAL CAPSULE completed 1 capsule by mouth three times daily as needed - Chalino Melendez RN LISINOPRIL 10 MG ORAL TABLET completed ONE TAB. DAILY - Chalino Melendez RN ALBUTEROL AERS completed DIRECTED - Masood Manacop DARVOCET-N 100 100-650 MG TABS completed - Masood Manacop IBUPROFEN TABLET completed - Masood Manacop Coreg 6.25 mg tablet completed 1 tablet by mouth twice a day - Ruth Isabel SOCIAL HISTORY Date Observation Value Provider physical exercise, frequency, days per week no José Manuel Edge MD caffeine use, averag e drinks per day yes José Manuel Edge MD smoking, year quit 2020 José Manuel paulson MD number of years as a smoker 25 a José Manuel Edge MD smoking history, tot al pack/day 1/2 ppd José Manuel Edge MD cigarette use yes José Manuel Edge MD smoking status Former smoker José Manuel Edge MD social history revie wed E&M reviewed - no changes required José Manuel Edge MD number of grandchildren José Manuel Edge MD social history E&M Marital Statu s: L frankie with family/friends E thnicity: Smoking History: P atmaria eugenia is a former smoker. José Manuel Edge MD social history revie wed E&M reviewed - no changes required José Manuel Edge MD smoking, year quit 2020 Hansa smith cigarette use yes Hansa Duarte smoking status Former smoker Hansa talamantes social history E&M Marital Statu s: L frankie with family/friends E thnicity: Smoking History: P atmaria eugenia is a former smoker. Aminata Bliss [facility] social history revie wed E&M reviewed - no changes required Aminata Bliss [facility] smoking, year quit 2020 Ruth smalls physical exercise, frequency, days per week no Ruth Isabel caffeine use, averag e drinks per day yes Ruth Isabel number of years as a smoker 25 a Ruth Isabel smoking history, tot al pack/day 1/2 ppd Ruth Isabel cigarette use yes Ruth phipps smoking status Former smoker Ruth Jose balderas social history revie wed E&M reviewed - no changes required José Manuel Edge MD social history E&M Marital Statu s: L frankie with family/friends E thnicity: Smoking History: P sandeep currently smokes every day. P sandeep has been counseled to quit. José Manuel Edge MD social history revie wed E&M reviewed - no changes required José Manuel Edge MD number of years as a smoker 25 a Ruth Amarofabien smoking history, tot al pack/day 1/2 ppd Ruth Isabel cigarette use yes Ruth phipps physical exercise, frequency, days per week no Ruth Umanaadolfoyoel caffeine use, averag e drinks per day yes Rtuh Amaroteezariamoise smoking/tobacco cessation, patient education and counseling yes Ruth Umanaadolfoyoel smoking status Current every day smoker Spring Amarofabien social history E&M Marital Statu s: L frankie with family/friends E thnicity: Smoking History: P sandeep currently smokes every day. P sandeep has been counseled to quit. José Manuel Edge MD smoking/tobacco cessation, patient education and counseling yes José Manuel Edge MD social history revie wed E&M reviewed - no changes required José Manuel Edge MD alcohol use no Ruth Mahan bj smoking status Current every day smoker Spring palma Chalo drug use none José Manuel Edge MD social history revie wed E&M reviewed Chalino Melendez RN social history revie wed E&M reviewed Chalino Melendez RN smoking/tobacco cessation, patient education and counseling yes Chalino Melendez RN social history revie wed E&M reviewed Chalino Melendez RN social history E&M Marital Statu s: L frankie with family/friends E thnicity: Chalino Melendez RN social history revie wed E&M reviewed Chalino Melendez RN smoking/tobacco cessation, patient education and counseling yes José Manuel Edge MD social history E&M Marital Statu s: L frankie with family/friends E thnicity: CaucasianMarital Status: L frankie with family/friends E thnicity: José Manuel Edge MD social history revie wed E&M reviewed Chalino Melendez RN physical exercise, frequency, days per week no [employer]Log[employer] caffeine use, averag e drinks per day yes [employer]Logic alcohol use, average drinks per day none [employer] number of years as a smoker 10 years or more [employer] smoking status Smoker [employer] FUNCTIONAL STATUS Date Observation Value Provider HRA, CV Assess/Plan, Angina (inactive) Management Plan continue current therapy José Manuel Edge MD HRA, CV Assess/Plan, Angina (inactive) Management Plan continue current therapy José Manuel Edge MD HRA, CV Assess/Plan, Angina (inactive) Management Plan continue current therapy Aminata Bliss DIGITAL SALES DIRECTOR HRA, CV Assess/Plan, Angina (inactive) Management Plan continue current therapy José Manuel Edge MD HRA, CV Assess/Plan, Angina (inactive) Management Plan continue current therapy José Manuel Edge MD HRA, CV Assess/Plan, Angina (inactive) Management Plan continue current therapy José Manuel Edge MD MENTAL STATUS Date Observation Value Provider energy level no Masood Manacop energy level no Masood Manacop energy level no Masood Manacop energy level no Masood Manacop energy level no Masood Manacop energy level no Masood Manacop energy level no Joaquin Brandt energy level no Joaquin Brandt assessment of judgme nt and insight E&M Alert and oriented to time, place and person. Mood and affect are normal. H X of bipolar Chalino Melendez RN assessment of judgme nt and insight E&M Alert and oriented to time, place and person. Mood and affect are normal. H X of bipolar Chalino Melendez RN energy level yes Joaquin Brandt energy level yes Joaquin Brandt energy level yes Joaquin Brandt energy level yes Joaquin Brandt energy level yes Joaquin Brandt energy level yes Joaquin Brandt energy level yes Joaquin Brandt energy level yes Joaquin Brandt energy level yes Joaquin Brandt energy level yes Joaquin Brandt energy level yes Joaquin Brandt energy level yes Joaquin Brandt energy level yes Joaquin Brandt energy level yes Joaquin Brandt energy level yes Joaquin Brandt energy level yes Joaquin Brandt energy level yes Joaquin Brandt energy level yes Joaquin Brandt energy level yes Joaquin Brandt energy level yes Joaquin Brandt energy level yes Joaquin Brandt energy level no Joaquin Brandt energy level no Joaquin Brandt energy level no Joaquin Brandt energy level no Jennifer Cressey energy level no Jennifer Cressey energy level no Jennifer Maite energy level no Joaquin Brandt energy level no Joaquin Brandt energy level no Joaquin Brandt energy level no Joaquin Brandt energy level no Joaquin Brandt assessment of judgme nt and insight E&M Alert and oriented to time, place and person. Mood and affect are normal. H X of bipolar Chalino Melendez RN assessment of judgme nt and insight E&M Alert and oriented to time, place and person. Mood and affect are normal. H X of bipolar Chalino Melendez RETAIL SALES MANAGER HISTORY Family Member Condition Mother Negative FH of Coron sneha Artery Disease Father Family History of Co ngestive Heart Failure: Father Family History of Co ronary Artery Disease: Father Family History of CV A or Stroke: INSURANCE PROVIDERS Payer name Policy type / Coverage type [employer] party ID [employer] Medicaid 0 [id number] ADVANCE DIRECTIVES Name Date DISCUSSED - NO DECISION MADE TREATMENT PLAN Date Name Performer [id number],SJosé Manuel MD [id number],S,T he Patient was reencouraged to stop smoking. José Manuel Edge MD [id number],S,C ontinues to be CHF class III, Jardiance was denied by insurance. He would like to participate in the [facility] trial. Complains of leg swelling with discoloration which is consistent with venous insufficiency. We will obtain echo and venous duplex. José Manuel Edge MD [id number],SJosé Manuel MD [id number],S, H is updated medication list for this problem includes: Coreg 6.25 Mg Tablet (Carvedilol) ..... 1 tablet by mouth twice a day José Manuel Edge MD [id number],S, H is updated medication list for this problem includes: Losartan 50 Mg Tablet (Losartan) ..... Take 1 tablet by mouth once a day Coreg 6.25 Mg Tablet (Carvedilol) ..... 1 tablet by mouth twice a day Furosemide 40 Mg Tablet (Furosemide) ..... Take 1 tablet by mouth once a day José Manuel Edge MD [id number],SBaldev i [id number],S, Baldev Smith i [id number],S, Baldev Hancockza i [id number],S, Baldev Gilmedza i [id number],C, He is cleared for surgery, and endocscopy, and spine injections. H is updated medication list for this problem includes: Coreg 6.25 Mg Tablet (Carvedilol) ..... 1 tablet by mouth twice a day Henny Yañez [id number],C, S ROSARIO ENCOURAGED TO STOP SMOKING; SMOKING CESSATION TECHNIQUES DISCUSSED. Henny Irvindelfin [id number],Amelia P rior BP: 184/100 (01/31/2022) Labs Reviewed: C reat: 0.97 (03/25/2010) C hol: 238.0 (11/25/2015) HDL: 35.0 (11/25/2015) T.0 (11/25/2015) His updated medication list for this problem includes: Losartan 50 Mg Tablet (Losartan) ..... Take 1 tablet by mouth once a day Coreg 6.25 Mg Tablet (Carvedilol) ..... 1 tablet by mouth twice a day Furosemide 40 Mg Tablet (Furosemide) ..... Take 1 tablet by mouth once a day Henny Irvindelfin [id number],C,R eviewed records from [facility]. Pt presnt with respiratory failure due to HFpEF. Cath last year showed normal coronaries. Henny Pari [id number],C,R eviewed records from [facility]. Pt presnt with respiratory failure due to HFpEF. Cath last year showed normal coronaries. Will increase Losartan to 100 mg daily for better BP control, start Jardiance 10 mg for his HFpEF, and screen for [facility]. Henny Irvindelfin [id number],C C urrently on supplemental O2, follows pulmonary Baldev Singh [id number],C, C ardiac cath revealed no CAD, EF 55%. Mild to moderate elevation of right and left heart filling pressures. Baldev Singh [id number],C,w ith recent hospitalization at [place] for acute CHF. patient now on lasix, BB and ARB. We will obtain those records. Losartan increased today as BP high. We will do BNP, BMP and uacr for further evaluation will need outside records and f/u in one month or sooner if needed. Baldev Singh [id number],C,u ncontrolled. losartan increased. recommended rpm but patient has cuff and monitoring through insurance at this time. BP goal <130/80. will f/u in one month or sooner if needed. Baldev Singh [id number],S, S ROSARIO ENCOURAGED TO STOP SMOKING; SMOKING CESSATION TECHNIQUES DISCUSSED. Henny Pari [id number],C,B P controlled at home B P today: 160/105 P rior BP: 156/98 (11/16/2020) Labs Reviewed: C reat: 0.97 (03/25/2010) C hol: 238.0 (11/25/2015) HDL: 35.0 (11/25/2015) T.0 (11/25/2015) His updated medication list for this problem includes: Coreg 6.25 Mg Tablet (Carvedilol) ..... 1 tablet by mouth twice a day Zestril 10 Mg Tablet (Lisinopril) ..... 1 tablet by mouth once a day Furosemide 40 Mg Tablet (Furosemide) ..... Take 1 tablet by mouth once a day Henny Irvindelfin [id number],C, Mild to moderate elevation of right and left heart filling pressures. Will check proBNP, venous duplex in view of his leg swelling.His symptoms are most likely related ot HFpEF. He would like to pariticipate in the [facility] HFpEF trial. He states his BP is controlled at home. Henny Pari [id number],S, W eight loss strongly encouraged Henny Pari [id number],C,C ardiac cath revealed no CAD, EF 55%. Mild to moderate elevation of right and left heart filling pressures. Will check proBNP, venous duplex in view of his leg swelling.His symptoms are most likely related ot HFpEF. He would like to pariticipate in the [facility] HFpEF trial. He states his BP is controlled at home. Henny Pari [id number],C,C ardiac cath revealed no CAD, EF 55%. Mild to moderate elevation of right and left heart filling pressures. Will check proBNP, venous duplex in view of his leg swelling.His symptoms are most likely related ot HFpEF. He would like to pariticipate in the [facility] HFpEF trial. He states his BP is controlled at home. His updated medication list for this problem includes: Coreg 6.25 Mg Tablet (Carvedilol) ..... 1 tablet by mouth twice a day Zestril 10 Mg Tablet (Lisinopril) ..... 1 tablet by mouth once a day Henny Yañez [id number],C,Weight loss s rosario encouraged Henny Yañez [id number],C, S ROSARIO ENCOURAGED TO STOP SMOKING; SMOKING CESSATION TECHNIQUES DISCUSSED. Henny Yañez [id number],C, H is updated medication list for this problem includes: Coreg 6.25 Mg Tablet (Carvedilol) ..... 1 tablet by mouth twice a day Zestril 10 Mg Tablet (Lisinopril) ..... 1 tablet by mouth once a day Furosemide 40 Mg Tablet (Furosemide) ..... Take 1 tablet by mouth once a day Furosemide 40 Mg Tablet (Furosemide) BP today: 156/98 P rior BP: 132/96 (11/23/2015) Labs Reviewed: C reat: 0.97 (03/25/2010) C hol: 238.0 (11/25/2015) HDL: 35.0 (11/25/2015) T.0 (11/25/2015) Henny Yañez [id number],C, H is updated medication list for this problem includes: Coreg 6.25 Mg Tablet (Carvedilol) ..... 1 tablet by mouth twice a day Zestril 10 Mg Tablet (Lisinopril) ..... 1 tablet by mouth once a day Furosemide 40 Mg Tablet (Furosemide) ..... Take 1 tablet by mouth once a day Furosemide 40 Mg Tablet (Furosemide) Henny Yañez [id number],C,I n the past month, the pt has been complaining of exertional dyspnea. He has orthopnea and PND. He was admitted to [facility] and [facility], Lasix was prescribed and he felt better. However, he ran out of prescription medications. He had an echo, but we do not have the results. Will obtain R/L heart cath and venous duplex. Check pro-BNP and obtain the records from the hospitalizations. Will start Lasix 40 mg daily. Henny Yañez [id number],C,H e has marked leg swelling with skin changes.Will start Lasix 40 mg daily. Henny Yañez Cardiology José Manuel Edge MD Cardiology:The Patie nt was reencouraged to stop smoking. José Manuel Edge MD Cardiology:Continues to be CHF class III, Jardiance was denied by insurance. He would like to participate in the [facility] trial. Complains of leg swelling with discoloration which is consistent with venous insufficiency. We will obtain echo and venous duplex. José Manuel Edge MD Cardiology José Manuel Edge MD Cardiology: H is updated medication list for this problem includes: Coreg 6.25 Mg Tablet (Carvedilol) ..... 1 tablet by mouth twice a day José Manuel Edge MD Cardiology: H is updated medication list for this problem includes: Losartan 50 Mg Tablet (Losartan) ..... Take 1 tablet by mouth once a day Coreg 6.25 Mg Tablet (Carvedilol) ..... 1 tablet by mouth twice a day Furosemide 40 Mg Tablet (Furosemide) ..... Take 1 tablet by mouth once a day José Manuel Edge MD Cardiology Baldev Singh Cardiology Baldev Singh Cardiology Baldev Singh Cardiology Baldev Singh Telehealth: He is cl eared for surgery, and endocscopy, and spine injections. H is updated medication list for this problem includes: Coreg 6.25 Mg Tablet (Carvedilol) ..... 1 tablet by mouth twice a day Henny Yañez Telehealth: S ROSARIO ENCOURAGED TO STOP SMOKING; SMOKING CESSATION TECHNIQUES DISCUSSED. Henny Pari Telehealth: Syd braga BP: 184/100 (01/31/2022) Labs Reviewed: C reat: 0.97 (03/25/2010) C hol: 238.0 (11/25/2015) HDL: 35.0 (11/25/2015) T.0 (11/25/2015) His updated medication list for this problem includes: Losartan 50 Mg Tablet (Losartan) ..... Take 1 tablet by mouth once a day Coreg 6.25 Mg Tablet (Carvedilol) ..... 1 tablet by mouth twice a day Furosemide 40 Mg Tablet (Furosemide) ..... Take 1 tablet by mouth once a day Henny Yañez Telehealth:Reviewed records from [facility]. Pt presnt with respiratory failure due to HFpEF. Cath last year showed normal coronaries. Henny Yañez Telehealth:Reviewed records from [facility]. Pt presnt with respiratory failure due to HFpEF. Cath last year showed normal coronaries. Will increase Losartan to 100 mg daily for better BP control, start Jardiance 10 mg for his HFpEF, and screen for [facility]. Henny Yañez Cardiology: C urrently on supplemental O2, follows pulmonary Baldev Singh Cardiology: C ardiac cath revealed no CAD, EF 55%. Mild to moderate elevation of right and left heart filling pressures. Baldev Singh Cardiology:with rece nt hospitalization at [place] for acute CHF. patient now on lasix, BB and ARB. We will obtain those records. Losartan increased today as BP high. We will do BNP, BMP and uacr for further evaluation will need outside records and f/u in one month or sooner if needed. Baldev Singh Cardiology:uncontrol led. losartan increased. recommended rpm but patient has cuff and monitoring through insurance at this time. BP goal <130/80. will f/u in one month or sooner if needed. Baldev Singh Cardiology: S ROSARIO ENCOURAGED TO STOP SMOKING; SMOKING CESSATION TECHNIQUES DISCUSSED. Henny Pari Cardiology:BP contro lled at home B P today: 160/105 P rior BP: 156/98 (11/16/2020) Labs Reviewed: C reat: 0.97 (03/25/2010) C hol: 238.0 (11/25/2015) HDL: 35.0 (11/25/2015) T.0 (11/25/2015) His updated medication list for this problem includes: Coreg 6.25 Mg Tablet (Carvedilol) ..... 1 tablet by mouth twice a day Zestril 10 Mg Tablet (Lisinopril) ..... 1 tablet by mouth once a day Furosemide 40 Mg Tablet (Furosemide) ..... Take 1 tablet by mouth once a day Henny Pari Cardiology: Mild to moderate elevation of right and left heart filling pressures. Will check proBNP, venous duplex in view of his leg swelling.His symptoms are most likely related ot HFpEF. He would like to pariticipate in the [facility] HFpEF trial. He states his BP is controlled at home. Henny Yañez Cardiology: W eight loss strongly encouraged Henny Yañez Cardiology:Cardiac c ath revealed no CAD, EF 55%. Mild to moderate elevation of right and left heart filling pressures. Will check proBNP, venous duplex in view of his leg swelling.His symptoms are most likely related ot HFpEF. He would like to pariticipate in the [facility] HFpEF trial. He states his BP is controlled at home. Henny Yañez Cardiology:Cardiac c ath revealed no CAD, EF 55%. Mild to moderate elevation of right and left heart filling pressures. Will check proBNP, venous duplex in view of his leg swelling.His symptoms are most likely related ot HFpEF. He would like to pariticipate in the [facility] HFpEF trial. He states his BP is controlled at home. His updated medication list for this problem includes: Coreg 6.25 Mg Tablet (Carvedilol) ..... 1 tablet by mouth twice a day Zestril 10 Mg Tablet (Lisinopril) ..... 1 tablet by mouth once a day Henny Yañez Cardiology New Patie nt :Weight loss strongly encouraged Henny Yañez Cardiology New Patirom nt : Eloy SON ENCOURAGED TO STOP SMOKING; SMOKING CESSATION TECHNIQUES DISCUSSED. Henny Yañez Cardiology New Patie nt : H is updated medication list for this problem includes: Coreg 6.25 Mg Tablet (Carvedilol) ..... 1 tablet by mouth twice a day Zestril 10 Mg Tablet (Lisinopril) ..... 1 tablet by mouth once a day Furosemide 40 Mg Tablet (Furosemide) ..... Take 1 tablet by mouth once a day Furosemide 40 Mg Tablet (Furosemide) BP today: 156/98 P rior BP: 132/96 (11/23/2015) Labs Reviewed: C reat: 0.97 (03/25/2010) C hol: 238.0 (11/25/2015) HDL: 35.0 (11/25/2015) T.0 (11/25/2015) Henny Yañez Cardiology New Patie nt : H is updated medication list for this problem includes: Coreg 6.25 Mg Tablet (Carvedilol) ..... 1 tablet by mouth twice a day Zestril 10 Mg Tablet (Lisinopril) ..... 1 tablet by mouth once a day Furosemide 40 Mg Tablet (Furosemide) ..... Take 1 tablet by mouth once a day Furosemide 40 Mg Tablet (Furosemide) Henny Yañez Cardiology New Patie nt :In the past month, the pt has been complaining of exertional dyspnea. He has orthopnea and PND. He was admitted to [facility], Lasix was prescribed and he felt better. However, he ran out of prescription medications. He had an echo, but we do not have the results. Will obtain R/L heart cath and venous duplex. Check pro-BNP and obtain the records from the hospitalizations. Will start Lasix 40 mg daily. Henny Yañez Cardiology New Patie nt :He has marked leg swelling with skin changes.Will start Lasix 40 mg daily. Henny Yañez Cardiology New Patie nt:BP today: 132/96 P rior BP: 128/96 (08/17/2012) He is resuming his Coreg and Zestril. [facility][Note 3] Cardiology New [place] nt:STRONGLY ENCOURAGED TO STOP SMOKING; SMOKING CESSATION TECHNIQUES DISCUSSED. [facility] Cardiology New Patient:Will obta in a venous doppler. Valer[facility][Note 3] Cardiology New Patirom nt:He complains of SOB but denies chest pain. Will obtain an echo, stress test (pre-op) and PFT's. [facility]er[facility][Note 3] Cardiology New [place] nt:The pt has a hx of mild/moderate CAD (40% stenosis of RCA in 2011). He complains of SOB but denies chest pain. EKG shows T-wave inversions that may indicate ischemia. [facility]er[facility][Note 3] Cardiology New [place] nt:He is a candidate for hernia surgery. He complains of SOB but denies chest pain. The pt has a hx of mild/moderate CAD (40% stenosis of RCA in 2011). EKG shows T-wave inversions that may indicate ischemia. Will obtain an echo and stress myoview. [facility]er[facility][Note 3] routine : T he following medications were removed from the medication list: Coreg 6.25 Mg Tabs (Carvedilol) ..... One tab. twice daily Lisinopril 10 Mg Tabs (Lisinopril) ..... One tab. daily His updated medication list for this problem includes: Zestril 10 Mg Tab (Lisinopril) ..... Take 1 tablet by mouth once a day Orders: S leep Study (*) B TYPE NATRIURETIC PEPTIDE (BNP) (95608) C OMPREHENSIVE METABOLIC PANEL W/EGFR (74176) C BC (H/H, RBC, INDICES, WBC, PLT) (1759) T HYROID PANEL WITH TSH, 3RD GENERATION (7444) E CP Commercial (CPT-98001) G allbaladder Ultrasound (CPT-15460) Ivan Ruvalcaba MD routine : T he following medications were removed from the medication list: Clindamycin Hcl Caps (Clindamycin hcl caps) ..... One tab twice daily His updated medication list for this problem includes: Zithromax Pack (Azithromycin pack) Orders: X -Ray, Chest, PA & Lateral (CPT-48448) S leep Study (*) B TYPE NATRIURETIC PEPTIDE (BNP) (11674) C OMPREHENSIVE METABOLIC PANEL W/EGFR (62352) C BC (H/H, RBC, INDICES, WBC, PLT) (1759) T HYROID PANEL WITH TSH, 3RD GENERATION (7444) E CP Commercial (CPT-58231) G allbaladder Ultrasound (CPT-57903) Ivan Ruvalcaba MD routine : O rders: C omplete Echo (CPT-77708) S pirometry (CPT-52483) Ivan Ruvalcaba MD routine : B P today: 118/73 P rior BP: 106/82 (07/27/2009) Orders: E CP Commercial (CPT-91222) G allbaladder Ultrasound (CPT-93265) The following medications were removed from the medication list: Coreg 6.25 Mg Tabs (Carvedilol) ..... One tab. twice daily Lisinopril 10 Mg Tabs (Lisinopril) ..... One tab. daily His updated medication list for this problem includes: Zestril 10 Mg Tab (Lisinopril) ..... Take 1 tablet by mouth once a day Ivan Ruvalcaba MD routine : B P today: 118/73 Prior BP: 106/82 (07/27/2009) N uclear Stress Findings: Resting ECG reveals sinus bradycardia, rate 50bpm, LVH. There were ST changes of 1.0mm downsloping in the inferior leads considered to be borderline for ischemia. No scintigraphic evidence of stress induced ischemia or wall motion abnormality. LV EF 48% below normal limits. [facility] (08/15/2008) E chocardiogram: Increased heart rate throughout exam. Left ventricular systolic function is at the lower limits of normal. Normal left ventricular wall thickness. Early signs of diastolic dysfunction. Left ventricular ejection fraction is estimated at 50%. No significant valvular abnormalities. office (07/27/2009) Orders: G allbaladder Ultrasound (CPT-38897) Ivan Ruvalcaba MD routine : O rders: C omplete Echo (CPT-15960) S pirometry (CPT-42607) Ivan Ruvalcaba MD routine : T he following medications were removed from the medication list: Coreg 6.25 Mg Tabs (Carvedilol) ..... One tab. twice daily Lisinopril 10 Mg Tabs (Lisinopril) ..... One tab. daily His updated medication list for this problem includes: Zestril 10 Mg Tab (Lisinopril) ..... Take 1 tablet by mouth once a day BP today: 118/73 Prior BP: 106/82 (07/27/2009) Nuclear Stress Findings: Resting ECG reveals sinus bradycardia, rate 50bpm, LVH. There were ST changes of 1.0mm downsloping in the inferior leads considered to be borderline for ischemia. No scintigraphic evidence of stress induced ischemia or wall motion abnormality. LV EF 48% below normal limits. [facility] (08/15/2008) Orders: C omplete Echo (CPT-55197) S pirometry (CPT-87335) X -Ray, Chest, PA & Lateral (CPT-53389) Ivan Ruvalcaba MD routine : O rders: X -Ray, Chest, PA & Lateral (CPT-96062) Ivan Ruvalcaba MD routine : O rders: X -Ray, Chest, PA & Lateral (CPT-96750) S leep Study (*) B TYPE NATRIURETIC PEPTIDE (BNP) (60420) C OMPREHENSIVE METABOLIC PANEL W/EGFR (30685) C BC (H/H, RBC, INDICES, WBC, PLT) (1759) T HYROID PANEL WITH TSH, 3RD GENERATION (7444) E CP Commercial (CPT-85154) G allbaladder Ultrasound (CPT-75164) The following medications were removed from the medication list: Coreg 6.25 Mg Tabs (Carvedilol) ..... One tab. twice daily Lisinopril 10 Mg Tabs (Lisinopril) ..... One tab. daily His updated medication list for this problem includes: Zestril 10 Mg Tab (Lisinopril) ..... Take 1 tablet by mouth once a day Ivan Ruvalcaba MD routine : B P today: 118/73 P rior BP: 106/82 (07/27/2009) Orders: X -Ray, Chest, PA & Lateral (CPT-66670) S leep Study (*) B TYPE NATRIURETIC PEPTIDE (BNP) (92443) C OMPREHENSIVE METABOLIC PANEL W/EGFR (32845) C BC (H/H, RBC, INDICES, WBC, PLT) (1759) T HYROID PANEL WITH TSH, 3RD GENERATION (7444) E CP Commercial (CPT-20746) G allbaladder Ultrasound (CPT-17871) Ivan Ruvalcaba MD routine : T he following medications were removed from the medication list: Coreg 6.25 Mg Tabs (Carvedilol) ..... One tab. twice daily Lisinopril 10 Mg Tabs (Lisinopril) ..... One tab. daily His updated medication list for this problem includes: Zestril 10 Mg Tab (Lisinopril) ..... Take 1 tablet by mouth once a day BP today: 118/73 Prior BP: 106/82 (07/27/2009) Nuclear Stress Findings: Resting ECG reveals sinus bradycardia, rate 50bpm, LVH. There were ST changes of 1.0mm downsloping in the inferior leads considered to be borderline for ischemia. No scintigraphic evidence of stress induced ischemia or wall motion abnormality. LV EF 48% below normal limits. [facility] (08/15/2008) E chocardiogram: Increased heart rate throughout exam. Left ventricular systolic function is at the lower limits of normal. Normal left ventricular wall thickness. Early signs of diastolic dysfunction. Left ventricular ejection fraction is estimated at 50%. No significant valvular abnormalities. office (07/27/2009) Orders: C omplete Echo (CPT-32345) S pirometry (CPT-53338) X -Ray, Chest, PA & Lateral (CPT-26154) S leep Study (*) B TYPE NATRIURETIC PEPTIDE (BNP) (58795) C OMPREHENSIVE METABOLIC PANEL W/EGFR (90797) C BC (H/H, RBC, INDICES, WBC, PLT) (1759) T HYROID PANEL WITH TSH, 3RD GENERATION (7444) E CP Commercial (CPT-98509) G allbaladder Ultrasound (CPT-32142) Ivan Ruvalcaba MD routine : T he following medications were removed from the medication list: Coreg 6.25 Mg Tabs (Carvedilol) ..... One tab. twice daily Lisinopril 10 Mg Tabs (Lisinopril) ..... One tab. daily His updated medication list for this problem includes: Zestril 10 Mg Tab (Lisinopril) ..... Take 1 tablet by mouth once a day BP today: 118/73 P rior BP: 106/82 (07/27/2009) Ivan Ruvalcaba MD routine: H er updated medication list for this problem includes: Coreg 6.25 Mg Tabs (Carvedilol) ..... One tab. twice daily Lisinopril 10 Mg Tabs (Lisinopril) ..... One tab. daily & #13;BP today: 106/82 Prior BP: 145/87 (09/17/2008) N uclear Stress Findings: Resting ECG reveals sinus bradycardia, rate 50bpm, LVH. There were ST changes of 1.0mm downsloping in the inferior leads considered to be borderline for ischemia. No scintigraphic evidence of stress induced ischemia or wall motion abnormality. LV EF 48% below normal limits. [facility] (08/15/2008) Orders: E KG (CPT-45982) C omplete Echo (CPT-10225) José Manuel Edge MD post hospital-chest pain: O rders: T OBACCO USE CESSATION INTENSIVE >10 MINUTES (CPT-82471) José Manuel Edge MD post hospital-chest pain: H er updated medication list for this problem includes: Coreg 6.25 Mg Tabs (Carvedilol) ..... One tab. twice daily Lisinopril 10 Mg Tabs (Lisinopril) ..... One tab. daily BP today: 145/87 Prior BP: / () N uclear Stress Findings: Resting ECG reveals sinus bradycardia, rate 50bpm, LVH. There were ST changes of 1.0mm downsloping in the inferior leads considered to be borderline for ischemia. No scintigraphic evidence of stress induced ischemia or wall motion abnormality. LV EF 48% below normal limits. [facility] (08/15/2008) José Manuel Edge MD Date Name Venous Doppler Bilat eral LE - Reflux Complete Echo URINALYSIS, COMPLETE W/REFLEX TO CULTURE PROBNP, N TERMINAL COMPREHENSIVE METABO LIC PANEL, W/EGFR Complete Echo Venous Doppler Bilat eral LE - Reflux PROBNP, N TERMINAL PROBNP, N TERMINAL Cardiac Cath - L/R- [facility] PROTHROMBIN TIME WIT H INR LIPID PANEL CBC (INCLUDES DIFF/P LT) BASIC METABOLIC PANE L W/EGFR Venous Doppler Bilat eral LE - Reflux HEMOGLOBIN A1c LIPID PANEL Venous Doppler Bilat eral LE - Standing DLCO - 86693 FRC - 21930 FVC - 86987 Complete Echo STR - Nuclear Cardiac Cath - Left - GC Gallbaladder Ultraso und ECP Commercial THYROID PANEL WITH T SH, 3RD GENERATION CBC (H/H, RBC, INDIC ES, WBC, PLT) COMPREHENSIVE METABO LIC PANEL W/EGFR B TYPE NATRIURETIC P EPTIDE (BNP) Sleep Study Spirometry Complete Echo Venous Doppler Bilat eral LE Spirometry Complete Echo Kidney Ultrasound Renal Artery Duplex HISTORY OF PROCEDURES Procedure Date Procedure Name Provider Procedure Notes S tatus EKG José Manuel Edge MD completed EKG José Manuel Edge MD completed Stress EKG Josie Kaur MD completed Cardiolite, 2 units José Manuel Edge MD c ompleted SPECT Images Josie Kaur MD complet ed SNOMED-CT: [id number] Smoking Cessation Counseling José Manuel Edge MD completed EKG José Manuel Edge MD completed SNOMED-CT: [id number] Current Medications Documented José Manuel Edge MD completed ePrescribe - Check t his box if eRx is used Ivan Ruvalcaba MD completed EKG José Manuel Edge MD completed
--- OUTSIDE RECORDS SUMMARY | 2024-08-19 01:34 | XMS_ITS | Data Portability ---
Author Organization [place] - [facility] ralali, Main Office Address [address] [place] [address] Assessment Encounter Date Assessment Date Assessment LastModified by Organization Details LastModified Time 05/25/2023 05/25/2023 Assessment: Ex nicotine smoke: 1.5 ppd [id number] = 30 years = 42 pack years High IgE with multiple environmental allergies Moderate persistent asthma Atelectasis Hypoventilation and respiratory failure, using and benefiting from AVAPS and O2 Plan: The following were reviewed and explained to the patient: PFT 07/21/21 FEV1 2.95 L (67%), BD 360 mL = 14 % PFT 09/07/22 FEV1 2.87 L (66%), BD 250 mL = 10% Chest CT 11/12/21 granulomatous lung disease Chest 1 view 11/15/21 right basal atelectasis Lab data 02/23/22 multiple environmental allergies, high IgE We will obtain old sleep studies from [facility]. Atrovent nasal spray 0.06% not formulary. Continue fluticasone and azelastine nasal spray. Continue AVAPS: TV 550 ml max pressure 35 cmH2O EPAP 5-15 cmH2O PS 13-30 cmH2O O2 3.5 Lpm Continue handheld flutter valve oscillatory mucus removal device for bronchopulmonary clearance. General information on bronchial asthma was covered. Patient will monitor peak flow daily at a set time and again when symptoms of chest tightness, cough, dyspnea or wheezing occur. Patient will bring peak flow record to subsequent visits. The color of a traffic light will guide the patient's use of asthma medications: (1) Green means Go Zone. Peak flow: above 80% of personal best. Symptoms: Breathing is good, no cough or wheeze present, patient sleeps through the night and can work and play. Plan: Patient will continue the use of preventative medicine. (2) Yellow means Caution Zone. Peak flow: between 50-80% of personal best. Symptoms: Presence of first signs of a cold, exposure to known trigger, mild wheeze, tight chest and coughing especially night. Plan: Patient will add quick-relief medicine to preventative medicine. (3) Red means Danger Zone. Peak flow: below 50% of personal best. Symptoms: Asthma is getting worse quickly and medicine is not helping, breathing is hard and fast, nose opens widely when breathing, ribs showing when breathing, and patient cannot speak in full sentences. Plan: Patient will get help from a physician immediately. Advised to continue not to smoke. Continue albuterol HFA as needed. Trelegy Ellipta 100/62.5/25 mcg 1 inhalation daily was not approved as a switch from Anoro Ellipta 62.5/25 mcg. Anoro Ellipta is no longer covered. Arnuity Ellipta 100 mcg is non-formulary. Advair HFA 115/21 mcg is also non-formulary. Flovent HFA is no longer formuilary. Continue Symbicort 160/4.5 mcg 2 puffs BID. Gargle after use. The patient does not know how to accurately administer the inhalers. Today, the patient was shown how to take these medications. The proper technique for delivering these medications was instructed. The patient expressed a clear understanding and demonstrated back how to use these medications. Without the proper technique, the patient will not reap the benefits of these medications as the contents will not reach the lower airways as intended to be. Adherence to therapy is advocated. Nonadherence may lead to treatment failure, further progression of the condition, and other complications. Hospitals admissions are often the result of individuals not taking prescription medications accurately. Alternatively, greater adherence to medication regimens have shown to lower rates of hospitalization and decrease total medical costs in patients with chronic medical conditions. Advocated influenza vaccination annually and pneumonia vaccination BERTHA. Advocated weight loss through diet and exercise. Patient's ideal body weight according to height and gender is up to 195 lbs. Encouraged patient to adjust caloric intake to maintain/achieve ideal body weight, emphasizing on fruits, vegetables, whole grains, and fat-free or low-fat products. These include lean meats, poultry, fish, beans, eggs, and nuts and foods that are low in saturated fats, trans-fats, cholesterol, salt (sodium), and glycemic index. Stressed the importance of regular exercise up to the patient's capacity limits. In this case, we recommend 20 min daily walking, 2 days a week of resistance training. Patient to monitor BP daily and bring records to PCP for further management. Follow-up: 1 year, May 2024 Not available 05/25/2023 13:15:40 01/11/2024 01/11/2024 Assessment: Ex nicotine smoke: 1.5 ppd 5759-9665 = 30 years = 42 pack years High IgE with multiple environmental allergies Moderate persistent asthma Atelectasis Hypoventilation and respiratory failure, using and benefiting from AVAPS and O2 Plan: The following were reviewed and explained to the patient: PFT 07/21/21 FEV1 2.95 L (67%), BD 360 mL = 14 % PFT 09/07/22 FEV1 2.87 L (66%), BD 250 mL = 10% Chest CT 11/12/21 granulomatous lung disease Chest 1 view 11/15/21 right basal atelectasis Lab data 02/23/22 multiple environmental allergies, high IgE We will obtain old sleep studies from [facility]. Atrovent nasal spray 0.06% not formulary. Continue fluticasone and azelastine nasal spray. Continue AVAPS-AE: TV 550 ml max pressure 35 cmH2O EPAP 5-15 cmH2O PS 13-30 cmH2O O2 3.5 Lpm AVAPS-AE compliance downloaded and interpreted x 20 minutes. Data reviewed and explained to the patient. Patient used PAP > 4 hours 60% of the time. Oxygen supplementation: 3 Lpm Patient is benefiting from AVAPS-AE therapy. Encouraged patient to maintain AVAPS-AE use more than 70% of the time. Statement of AVAPS-AE use and benefits will be sent to the home care store. Continue handheld flutter valve oscillatory mucus removal device for bronchopulmonary clearance. General information on bronchial asthma was covered. Patient will monitor peak flow daily at a set time and again when symptoms of chest tightness, cough, dyspnea or wheezing occur. Patient will bring peak flow record to subsequent visits. The color of a traffic light will guide the patient's use of asthma medications: (1) Green means Go Zone. Peak flow: above 80% of personal best. Symptoms: Breathing is good, no cough or wheeze present, patient sleeps through the night and can work and play. Plan: Patient will continue the use of preventative medicine. (2) Yellow means Caution Zone. Peak flow: between 50-80% of personal best. Symptoms: Presence of first signs of a cold, exposure to known trigger, mild wheeze, tight chest and coughing especially night. Plan: Patient will add quick-relief medicine to preventative medicine. (3) Red means Danger Zone. Peak flow: below 50% of personal best. Symptoms: Asthma is getting worse quickly and medicine is not helping, breathing is hard and fast, nose opens widely when breathing, ribs showing when breathing, and patient cannot speak in full sentences. Plan: Patient will get help from a physician immediately. PFT BERTHA. Advised to continue not to smoke. Continue albuterol HFA as needed. Trelegy Ellipta 100/62.5/25 mcg 1 inhalation daily was not approved as a switch from Anoro Ellipta 62.5/25 mcg. Anoro Ellipta is no longer covered. Arnuity Ellipta 100 mcg is non-formulary. Advair HFA 115/21 mcg is also non-formulary. Flovent HFA is no longer formulary. Continue Symbicort 160/4.5 mcg 2 puffs BID. Gargle after use. The patient does not know how to accurately administer the inhalers. Today, the patient was shown how to take these medications. The proper technique for delivering these medications was instructed. The patient expressed a clear understanding and demonstrated back how to use these medications. Without the proper technique, the patient will not reap the benefits of these medications as the contents will not reach the lower airways as intended to be. Adherence to therapy is advocated. Nonadherence may lead to treatment failure, further progression of the condition, and other complications. Hospitals admissions are often the result of individuals not taking prescription medications accurately. Alternatively, greater adherence to medication regimens have shown to lower rates of hospitalization and decrease total medical costs in patients with chronic medical conditions. Advocated influenza vaccination annually and pneumonia vaccination BERTHA. Advocated weight loss through diet and exercise. Patient's ideal body weight according to height and gender is up to 195 lbs. Encouraged patient to adjust caloric intake to maintain/achieve ideal body weight, emphasizing on fruits, vegetables, whole grains, and fat-free or low-fat products. These include lean meats, poultry, fish, beans, eggs, and nuts and foods that are low in saturated fats, trans-fats, cholesterol, salt (sodium), and glycemic index. Stressed the importance of regular exercise up to the patient's capacity limits. In this case, we recommend 20 min daily walking, 2 days a week of resistance training. Patient to monitor BP daily and bring records to PCP for further management. Follow-up: 1 week after PFT Not available 01/11/2024 11:57:45 01/16/2024 01/16/2024 This note is dictated and transcribed by [employer]. Business Instructor variances may occur. Despite proofreading, typographical errors may occur. Occasional wrong-word or '[id number]' substitutions may have occurred due to the inherent limitations of voice recording. Read the chart carefully and recognize, using context, where substitutions have occurred. [email or web address] Not available 01/16/2024 13:41:06 04/11/2024 04/11/2024 Assessment: Ex nicotine smoke: 1.5 ppd 8210-6127 = 30 years = 42 pack years High IgE with multiple environmental allergies Moderate ACO Atelectasis Hypoventilation and respiratory failure, using and benefiting from AVAPS and O2 Plan: The following were reviewed and explained to the patient: PFT 07/21/21 FEV1 2.95 L (67%), BD 360 mL = 14 % PFT 09/07/22 FEV1 2.87 L (66%), BD 250 mL = 10% PFT 01/23/24 FEV1 2.71 L (63%), BD -10 mL = -<1% Chest CT 11/12/21 granulomatous lung disease Chest 1 view 11/15/21 right basal atelectasis Lab data 02/23/22 multiple environmental allergies, high IgE We will obtain old sleep studies from [facility]. Atrovent nasal spray 0.06% not formulary. Continue fluticasone and azelastine nasal spray. Continue AVAPS-AE: TV 550 ml max pressure 35 cmH2O EPAP 5-15 cmH2O PS 13-30 cmH2O O2 3.5 Lpm AVAPS-AE compliance downloaded and interpreted x 20 minutes. Data reviewed and explained to the patient. Patient used PAP > 4 hours 53% of the time. Oxygen supplementation: 3 Lpm Patient is benefiting from AVAPS-AE therapy. Encouraged patient to maintain AVAPS-AE use more than 70% of the time. Statement of AVAPS-AE use and benefits will be sent to the home care store. Continue handheld flutter valve oscillatory mucus removal device for bronchopulmonary clearance. General information on bronchial asthma was covered. Patient will monitor peak flow daily at a set time and again when symptoms of chest tightness, cough, dyspnea or wheezing occur. Patient will bring peak flow record to subsequent visits. The color of a traffic light will guide the patient's use of asthma medications: (1) Green means Go Zone. Peak flow: above 80% of personal best. Symptoms: Breathing is good, no cough or wheeze present, patient sleeps through the night and can work and play. Plan: Patient will continue the use of preventative medicine. (2) Yellow means Caution Zone. Peak flow: between 50-80% of personal best. Symptoms: Presence of first signs of a cold, exposure to known trigger, mild wheeze, tight chest and coughing especially night. Plan: Patient will add quick-relief medicine to preventative medicine. (3) Red means Danger Zone. Peak flow: below 50% of personal best. Symptoms: Asthma is getting worse quickly and medicine is not helping, breathing is hard and fast, nose opens widely when breathing, ribs showing when breathing, and patient cannot speak in full sentences. Plan: Patient will get help from a physician immediately. PFT one week before return. Advised to continue not to smoke. Continue albuterol HFA as needed. Symbicort HFA 160/4.5 mcg 2 puffs BID is no longer covered. Start Advair HFA 115/21 mcg 2 puffs BID. Gargle after use. The patient does not know how to accurately administer the inhalers. Today, the patient was shown how to take these medications. The proper technique for delivering these medications was instructed. The patient expressed a clear understanding and demonstrated back how to use these medications. Without the proper technique, the patient will not reap the benefits of these medications as the contents will not reach the lower airways as intended to be. Adherence to therapy is advocated. Nonadherence may lead to treatment failure, further progression of the condition, and other complications. Hospitals admissions are often the result of individuals not taking prescription medications accurately. Alternatively, greater adherence to medication regimens have shown to lower rates of hospitalization and decrease total medical costs in patients with chronic medical conditions. Advocated influenza vaccination annually and pneumonia vaccination BERTHA. Advocated weight loss through diet and exercise. Patient's ideal body weight according to height and gender is up to 195 lbs. Encouraged patient to adjust caloric intake to maintain/achieve ideal body weight, emphasizing on fruits, vegetables, whole grains, and fat-free or low-fat products. These include lean meats, poultry, fish, beans, eggs, and nuts and foods that are low in saturated fats, trans-fats, cholesterol, salt (sodium), and glycemic index. Stressed the importance of regular exercise up to the patient's capacity limits. In this case, we recommend 20 min daily walking, 2 days a week of resistance training. Patient to monitor BP daily and bring records to PCP for further management. Follow-up: 1 year, March 2025 Not available 04/11/2024 16:29:48 Plan of Treatment Reminders Order Date Submit Date Provider Last Modified By Organization Details Last Modified Time Details Appointments Establish ed Patient 15 2024 03:00P M Jorge Cohen DPM Not available Not available Not available Any 15 2024 01:30P M Louie Jacinto MD Not available Not available Not available Lab None recorded. Referral None recorded. Procedures None recorded. Surgeries None recorded. Imaging None recorded. Medication Orders albuterol sulfate HFA 90 mcg/actua tion aerosol inhaler 2023 [facility] #[id number], [address], [place], [place], [id number], 04/11/2024 15:06:52 Advair HFA 115 mcg-21 mcg/actua tion aerosol inhaler 2023 [facility] #[id number], [address], [place], [place], [id number], 04/11/2024 15:15:40 azelastin e 137 mcg (0.1 %) nasal spray 2023 [facility] #[id number], [address], [place], [place], [id number], 04/11/2024 15:08:05 fluticaso ne propionat e 50 mcg/actua tion nasal spray,misa pension 2023 [facility] #47308, [address], [place], [place], [id number], 04/11/2024 15:08:04 albuterol sulfate HFA 90 mcg/actua tion aerosol inhaler 2023 024 [facility] #63533, [address], [place], [place], [id number], 01/11/2024 11:56:35 Symbicort 160 mcg-4.5 mcg/actua tion HFA aerosol inhaler 2023 024 [facility] #96079, [address], [place], [place], [id number], 01/11/2024 11:56:34 azelastin e 137 mcg (0.1 %) nasal spray 2023 024 [facility] #[id number], [address], [place], [place], [id number], 01/11/2024 11:56:36 fluticaso ne propionat e 50 mcg/actua tion nasal spray,[facility] 2023 024 [facility] #44864, [address], [place], [place], [id number], 01/11/2024 11:56:36 albuterol sulfate HFA 90 mcg/actua tion aerosol inhaler 2023 024 [facility] #43813, [address], [place], [place], [id number], 05/25/2023 13:21:34 Symbicort 160 mcg-4.5 mcg/actua tion HFA aerosol inhaler 2023 024 [facility] #91041, [address], [place], [place], [id number], 05/25/2023 13:21:32 azelastin e 137 mcg (0.1 %) nasal spray 2023 024 [facility] #97482, [address], [place], [place], [id number], 05/25/2023 13:21:33 fluticaso ne propionat e 50 mcg/actua tion nasal spray,[facility] pension 2023 024 [facility] #64375, [address], [place], [place], [id number], 05/25/2023 13:21:33 ketoconaz ole 2 % topical cream 2022 023 [facility] #31917, [address], [place], [place], [id number], 05/25/2023 13:19:04 Patient TargetsNo targets recorded. Patient Instructions Encounter Date Encounter Id Patient Instructions Last Modified By Organization Details Last Modified Time 05/25/2023 [id number] complete PFT w/ post bronchodilator spirometry* - no auth required Not available 08/23/2023 09:01:52 01/11/2024 [id number] complete PFT w/ post bronchodilator spirometry* - Please call patient to schedule. NPAN [id number] per payor website. Not available 02/22/2024 12:19:24 04/11/2024 [id number] complete PFT w/ post bronchodilator spirometry* - Please call patient to schedule. NPAN [id number] per payor website. Not available 04/11/2024 15:06:45 Reason for Referral None Reported. Results Created Date Observation Date Name Description Value Unit Range Abnormal Flag Note LastModifiedBy Organization Detail LastModifiedTime 03/26/20 24 01/23/2024 compl ete PFT w/ post [facility] hodil ator alma metry * No observ ation record ed. [facility] [address], [place], [address], 03/26/2024 17:37:15 Result Notes None recorded. Problems Name Problem SNOMED Code Status Onset Date Resolution Date Notes Provider Name and Address Organization Details Recorded Time Plantar fasciitis of right foot 9455115860270 9101 Active 2021 Not Available [facility] 3 19:28:56 Morbid obesity 716248046 Active 2020 Not Available [facility] 3 19:28:56 Peroneal tendinitis of right lower limb 1511737173076 09 Active 2021 Not Available [facility] 3 19:28:57 Osteoarthr itis of right knee joint 0877101665840 00 Active 2020 Not Available [facility] 3 19:28:57 Diabetes mellitus 15298777 Active 2021 Not Available [facility] 3 19:28:57 Gout 99902884 Active 2021 Not Available [facility] 3 19:28:57 Posterior rhinorrhea 17568834 Active 2022 Louie Jacinto MD [address], [place], [address] , [employer] 3 12:13:53 Tinea pedis 3673270 Active 2022 Jorge Cohen DPM [address], [address], [place], [address] , [employer] 3 15:25:55 Asthma-chr onic obstructiv e pulmonary disease overlap syndrome 3456602565109 9107 Active 2023 Louie Jacinto MD [address], [place], [address] , [employer] 4 14:55:24 Notes:Medical History: Bipol ar depression/Anxiety Bilateral hearing loss COVID infections 03/2020, 10/2021 Rhinitis with postnasal drip to multiple environmental allergens IgE 825 IU/mL Eosinophils 160/uL AAT PiMM 155 mg% Mod ACO Granulomatous lung disease Obesity with MORGAN and mild restrictive airflow impairment on AVAPS for chronic hypercarbic respiratory failure c/o [facility] Severe LVE Mild LAE Mild MR/WY/TR PASP 37 mmHg Hypertension EF 50% Hyperlipidemia T2DM with neuropathy Atrial fibrillation HFpEF since 04/2021 c/o Dr. Edge YAMILE Umbilical hernia Hepatic steatosis Cholelithiasis Vit D deficiency Thoracic DDD Dextroscoliosis Gout Procedure History: T&A 1990 Left inguinal herniorrhaphy 2016 Problem Notes None recorded. Procedures Surgical History Date Name Laterality Status Provider Name and Address Organization Details Recorded Time 01/16/20 24 Nail Debridement completed Jorge Cohen DPM [address] [facility], [facility] [address], [place], [address], [facility] ralali 01/16/2024 13:39:40 Tonsillectomy completed Not Available [facility] 06/15/2022 19:28:19 Hernia Repair completed Not Available [facility] 06/15/2022 19:28:19 Cardiac Cath completed Not Available [facility] 06/15/2022 19:28:19 Cardiac Cath completed Not Available [facility] 06/15/2022 19:28:19 Imaging Results Imaging Date Name Status LastModified by Organization Details LastModified Time 01/23/2024 complete PFT w/ post bronchodilator spirometry* completed [facility] [address], [place], [address], 03/26/2024 17:37:15 Procedure Notes None recorded. Medical Equipment None Reported. Allergies Allergen ID Allergen Name Allergen Category Reaction Reaction Severity Criticality Documentation Date Start Date Code Code System Note Provider Name and Address Organization Details Recorded Time 20052 Product containin g penicilli n (product) medicatio n Not available Not available Not available 06/15/2022 98202 8001 SNOMED Not Available [facility] 19:30:00 Medications Name Sig Start Date Stop Date Status Note LastModified by Organization Details LastModified Time losartan 50 mg tablet TAKE 1 TABLET BY MOUTH DAILY active Not Available Not Available No t Available celecoxib 200 mg capsule TAKE 1 CAPSULE BY MOUTH DAILY WITH A MEAL active Not Available Not Available No t Available cyclobenzap rine 10 mg tablet TAKE 1 TABLET BY MOUTH EVERY 8 HOURS 05/25 completed Not Available Not Available Not Available ziprasidone 80 mg capsule TAKE 1 CAPSULE BY MOUTH EVERY DAY AT BEDTIME active Not Available Not Available No t Available furosemide 40 mg tablet TAKE 1 TABLET BY MOUTH TWICE DAILY active Not Available Not Available No t Available metolazone 2.5 mg tablet 05/25 completed Not Available Not Available Not Available atorvastati n 40 mg tablet TAKE 1 TABLET BY MOUTH EVERY DAY 04/11 completed Not Available Not Available Not Available methocarbam ol 500 mg tablet 05/25 completed Not Available Not Available Not Available metformin 500 mg tablet TAKE 1 TABLET BY MOUTH TWICE DAILY active Not Available Not Available No t Available hydrocodone 7.5 mg-ibuprofe n 200 mg tablet 03/30 completed Not Available Not Available Not Available atorvastati n 80 mg tablet TAKE 1 TABLET BY MOUTH EVERY DAY active Not Available Not Available No t Available clonidine HCl 0.1 mg tablet TAKE 1 TABLET BY MOUTH EVERY DAY AT BEDTIME active Not Available Not Available No t Available carvedilol 6.25 mg tablet TAKE 1 TABLET BY MOUTH TWICE DAILY active Not Available Not Available No t Available prednisone 10 mg tablet 03/30 completed Not Available Not Available Not Available doxycycline hyclate 100 mg capsule TAKE 1 CAPSULE BY MOUTH TWICE DAILY WITH FOOD active Not Available Not Available No t Available atorvastati n 20 mg tablet TAKE 1 TABLET BY MOUTH EVERY DAY AT BEDTIME 12/06 completed Not Available Not Available Not Available naproxen 375 mg tablet 03/30 completed Not Available Not Available Not Available lamotrigine 200 mg tablet TAKE 1 TABLET BY MOUTH EVERY DAY AT BEDTIME active Not Available Not Available No t Available nicotine 14 mg/24 hr daily transdermal patch 03/30 completed Not Available Not Available Not Available clindamycin HCl 300 mg capsule TAKE 1 CAPSULE BY MOUTH EVERY 6 HOURS FOR 1 WEEK active Not Available Not Available No t Available albuterol sulfate 2.5 mg/3 mL (0.083 %) solution for nebulizatio n USE 3 ML VIA NEBULIZER THREE TIMES DAILY NEEDED active Not Available Not Available No t Available trazodone 50 mg tablet TAKE 1 TABLET BY MOUTH EVERY DAY AT BEDTIME NEEDED 05/25 completed Not Available Not Available Not Available azithromyci n 250 mg tablet TAKE 2 TABLETS BY MOUTH DAILY 04/11 completed Not Available Not Available Not Available ibuprofen 800 mg tablet Take 1 tablet 3 times a day by oral route. 02/15 completed Not Available Not Available Not Available tizanidine 4 mg tablet 03/30 completed Not Available Not Available Not Available fluconazole 150 mg tablet TAKE 1 TABLET BY MOUTH TODAY active Not Available Not Available No t Available glyburide 2.5 mg tablet TAKE 1 TABLET BY MOUTH EVERY DAY active Not Available Not Available No t Available hydrocodone 5 mg-acetamin ophen 325 mg tablet TAKE 1 TABLET BY MOUTH EVERY 6 HOURS NEEDED 05/25 completed Not Available Not Available Not Available Nystop 100,000 unit/gram topical powder APPLY TO THE AFFECTED AREA(S) BY TOPICAL ROUTE 2 TIMES PER DAY 02/15 completed Not Available Not Available Not Available ondansetron HCl 8 mg tablet 03/30 completed Not Available Not Available Not Available meloxicam 15 mg tablet 03/30 completed Not Available Not Available Not Available phenazopyri dine 200 mg tablet TAKE 1 TABLET BY MOUTH THREE TIMES DAILY NEEDED FOR PAIN FOR 5 DOSES 12/06 completed Not Available Not Available Not Available prednisone 20 mg tablet TAKE 2 TABLETS BY MOUTH DAILY FOR 4 DAYS 12/06 completed Not Available Not Available Not Available Lantus U-100 Insulin 100 unit/mL subcutaneou s solution ADMINISTE R 30 UNITS UNDER THE SKIN AT BEDTIME active Not Available Not Available No t Available clindamycin HCl 150 mg capsule 02/08 completed Not Available Not Available Not Available hydroxyzine pamoate 50 mg capsule TAKE 1 TO 2 CAPSULES BY MOUTH TWICE DAILY NEEDED FOR ANXIETY OR SLEEP active Not Available Not Available No t Available potassium chloride ER 10 mEq tablet,exte nded release TAKE 1 TABLET BY MOUTH TWICE DAILY DIRECTED active Not Available Not Available No t Available metronidazo le 500 mg tablet TAKE 1 TABLET BY MOUTH EVERY 8 HOURS FOR 1 WEEK 12/06 completed Not Available Not Available Not Available doxepin 10 mg capsule TAKE 1 CAPSULE BY MOUTH EVERY DAY AT BEDTIME active Not Available Not Available No t Available ciprofloxac in 500 mg tablet 05/11 completed Not Available Not Available Not Available sulfamethox azole 800 mg-trimetho prim 160 mg tablet TAKE 1 TABLET BY MOUTH EVERY 12 HOURS 05/25 completed Not Available Not Available Not Available peg-electro lyte solution 420 gram oral solution 03/14 completed Not Available Not Available Not Available aspirin 81 mg tablet,jax yed release TAKE 1 TABLET BY MOUTH EVERY DAY active Not Available Not Available No t Available tramadol 50 mg tablet 02/15 completed Not Available Not Available Not Available acetaminoph en 500 mg tablet 03/30 completed Not Available Not Available Not Available triamcinolo ne acetonide 0.1 % topical cream APPLY A THIN LAYER TOPICALLY TO THE BOTTOM OF RIGHT FOOT TWICE DAILY FOR 10 DAYS 05/25 completed Not Available Not Available Not Available spironolact one 25 mg tablet 03/30 completed Not Available Not Available Not Available ondansetron 8 mg disintegrat ing tablet 02/08 completed Not Available Not Available Not Available lamotrigine 25 mg tablet 09/07 completed Not Available Not Available Not Available potassium chloride 20 mEq/15 mL oral liquid TAKE 15 ML BY MOUTH DAILY active Not Available Not Available No t Available ketorolac 10 mg tablet 03/30 completed Not Available Not Available Not Available oxycodone-a cetaminophe n 5 mg-325 mg tablet 02/15 completed Not Available Not Available Not Available famotidine 20 mg tablet 03/30 completed Not Available Not Available Not Available methocarbam ol 750 mg tablet TAKE 1 TABLET BY MOUTH THREE TIMES DAILY active Not Available Not Available No t Available nifedipine ER 60 mg tablet,exte nded release 24 hr 03/30 completed Not Available Not Available Not Available pantoprazol e 40 mg tablet,jax yed release 05/25 completed Not Available Not Available Not Available buspirone 30 mg tablet TAKE 1 TABLET BY MOUTH TWICE DAILY DIRECTED active Not Available Not Available No t Available nystatin 100,000 unit/gram topical cream APPLY TOPICALLY TO THE AFFECTED AREA TWICE DAILY FOR 2 WEEKS active Not Available Not Available No t Available buspirone 10 mg tablet TAKE 2 TABLETS BY MOUTH THREE TIMES DAILY active Not Available Not Available No t Available divalproex ER 500 mg tablet,exte nded release 24 hr TAKE 1 TABLET BY MOUTH EVERY DAY active Not Available Not Available No t Available lidocaine 5 % topical patch 03/30 completed Not Available Not Available Not Available losartan 25 mg tablet TAKE 1 TABLET BY MOUTH EVERY DAY DIRECTED FOR 30 DAYS 09/07 completed Not Available Not Available Not Available gabapentin 300 mg capsule TAKE 1 CAPSULE BY MOUTH FOUR TIMES DAILY active Not Available Not Available No t Available aspirin 81 mg chewable tablet 12/06 completed Not Available Not Available Not Available diclofenac sodium 75 mg tablet,jax yed release 03/30 completed Not Available Not Available Not Available insulin syringe U-100 with needle 1 mL 31 gauge x 5/16 DIRECTED TO TAKE INSULIN FOUR TIMES DAILY active Not Available Not Available No t Available montelukast 10 mg tablet 03/30 completed Not Available Not Available Not Available bisacodyl 5 mg tablet,jax yed release 03/14 completed Not Available Not Available Not Available furosemide 20 mg tablet 03/30 completed Not Available Not Available Not Available ziprasidone 40 mg capsule TAKE 1 CAPSULE BY MOUTH EVERY DAY AT BEDTIME FOR 90 DAYS WITH 60 MG DAILY active Not Available Not Available No t Available gabapentin 100 mg capsule 03/30 completed Not Available Not Available Not Available azelastine 137 mcg (0.1 %) nasal spray USE 2 SPRAYS IN EACH NOSTRIL TWICE DAILY active Not Available Not Available No t Available cefuroxime axetil 500 mg tablet 05/11 completed Not Available Not Available Not Available levofloxaci n 500 mg tablet 03/30 completed Not Available Not Available Not Available methylpredn isolone 4 mg tablets in a dose pack FOLLOW PACKAGE DIRECTION S 04/11 completed Not Available Not Available Not Available albuterol sulfate HFA 90 mcg/actuati on aerosol inhaler Inhale 1 puff every 4 hours by inhalatio n route as needed. 2023 active Not Available Not Available Not Avai lable colchicine 0.6 mg tablet TAKE 1 TAB PO THEN 1 ADDITIONA L ONE HR LATER FOR GOUT FLAIR 03/14 completed Not Available Not Available Not Available ketoconazol e 2 % topical cream APPLY TO THE AFFECTED AREA(S) plantar feet BY TOPICAL ROUTE ONCE DAILY,2 weeks 05/25 completed Not Available Not Available Not Available hydroxyzine HCl 10 mg tablet 09/07 completed Not Available Not Available Not Available ziprasidone 60 mg capsule TAKE 1 CAPSULE BY MOUTH TWICE DAILY IN THE MORNING active Not Available Not Available No t Available ondansetron 4 mg disintegrat ing tablet 03/30 completed Not Available Not Available Not Available cefdinir 300 mg capsule TAKE 1 CAPSULE BY MOUTH TWICE DAILY 12/06 completed Not Available Not Available Not Available fluticasone propionate 50 mcg/actuati on nasal spray,suspe nsion [place] 1 spray every day by intranasa l route. 2023 active Not Available Not Available Not Avai lable metformin ER 500 mg tablet,exte nded release 24 hr TAKE 2 TABLETS BY MOUTH TWICE DAILY active Not Available Not Available No t Available clotrimazol e 1 % topical cream APPLY TO THE AFFECTED AND SURROUNDI NG AREAS OF SKIN plantar feet BY TOPICAL ROUTE 2 TIMES PER DAY IN THE MORNING AND EVENING 05/25 completed Not Available Not Available Not Available doxycycline hyclate 100 mg tablet 02/08 completed Not Available Not Available Not Available lamotrigine 100 mg tablet TAKE 1 TABLET BY MOUTH TWICE DAILY DIRECTED active Not Available Not Available No t Available glipizide 5 mg tablet TAKE 1 TABLET BY MOUTH EVERY DAY active Not Available Not Available No t Available fluticasone propionate 110 mcg/actuati on HFA aerosol inhaler INHALE 2 PUFFS INTO LUNGS TWICE DAILY active Not Available Not Available No t Available naproxen 500 mg tablet TAKE 1 TABLET BY MOUTH TWICE DAILY WITH FOOD 05/25 completed Not Available Not Available Not Available buspirone 15 mg tablet TAKE 1 TABLET BY MOUTH THREE TIMES DAILY 09/07 completed Not Available Not Available Not Available oxycodone 5 mg tablet TAKE 1 TABLET BY MOUTH THREE TIMES DAILY FOR 4 DAYS THEN TWICE DAILY FOR 4 DAYS THEN EVERY DAY FOR 4 DAYS THEN STOP 05/25 completed Not Available Not Available Not Available hydroxyzine pamoate 25 mg capsule TAKE 1 CAPSULE BY MOUTH FOUR TIMES DAILY DIRECTED 05/25 completed Not Available Not Available Not Available neomycin-po lymyxin-hyd rocort 3.5 mg-10,000 unit/mL-1 % ear drops,susp 03/30 completed Not Available Not Available Not Available insulin lispro (U-100) 100 unit/mL subcutaneou s pen USE DIRECTED BY SLIDING SCALE active Not Available Not Available No t Available divalproex ER 250 mg tablet,exte nded release 24 hr 09/07 completed Not Available Not Available Not Available ciprofloxac in 0.3 %-dexametha sone 0.1 % ear drops,suspe nsion 09/07 completed Not Available Not Available Not Available potassium chloride ER 10 mEq tablet,exte nded release(par t/cryst) 12/06 completed Not Available Not Available Not Available bupropion HCl XL 300 mg 24 hr tablet, extended release TAKE 1 TABLET BY MOUTH EVERY DAY IN THE MORNING active Not Available Not Available No t Available bupropion HCl XL 150 mg 24 hr tablet, extended release TAKE 1 TABLET BY MOUTH EVERY DAY WITH MEALS active Not Available Not Available No t Available Alcohol Prep Pads USE DIRECTED active Not Available Not Available No t Available Spiriva with HandiHaler 18 mcg and inhalation capsules 02/15 completed Not Available Not Available Not Available duloxetine 30 mg capsule,del ayed release 09/07 completed Not Available Not Available Not Available duloxetine 60 mg capsule,del ayed release TAKE 1 CAPSULE BY MOUTH DAILY AT BEDTIME active Not Available Not Available No t Available apple cider vinegar 02/15 completed Not Available Not Available Not Available BD Ultra-Fine Original Pen Needle 29 gauge x 1/2 USE DIRECTED 04/11 completed Not Available Not Available Not Available Advair HFA 115 mcg-21 mcg/actuati on aerosol inhaler Inhale 2 puffs twice a day by inhalatio n route. 2023 active Not Available Not Available Not Avai lable budesonide- formoterol HFA 160 mcg-4.5 mcg/actuati on aerosol inhaler INHALE 2 PUFFS BY MOUTH TWICE DAILY active Not Available Not Available No t Available Lantus Solostar U-100 Insulin 100 unit/mL (3 mL) subcutaneou s pen ADMINISTE R 50 UNITS UNDER THE SKIN EVERY NIGHT active Not Available Not Available No t Available buprenorphi ne 5 mcg/hour weekly transdermal patch APPLY 1 PATCH TO SKIN EVERY 7 DAYS. REMOVE OLD PATCH 05/25 completed Not Available Not Available Not Available buprenorphi ne 10 mcg/hour weekly transdermal patch APPLY 1 PATCH EVERY 7 DAYS AFTER REMOVING OLD PATCH 05/25 completed Not Available Not Available Not Available Vios Aerosol Delivery System 03/30 completed Not Available Not Available Not Available OneTouch Verio test strips USE TO TEST FAST BLOOD SUGAR EVERY MORNING 12/06 completed Not Available Not Available Not Available Victoza 2-Samm 0.6 mg/0.1 mL (18 mg/3 mL) subcutaneou s pen injector ADMINISTE R 1.2 MG UNDER THE SKIN EVERY DAY DIRECTED 01/10 completed Not Available Not Available Not Available Anoro Ellipta 62.5 mcg-25 mcg/actuati on powder for inhalation INHALE 1 PUFF BY MOUTH EVERY DAY DIRECTED 04/11 completed Not Available Not Available Not Available Jardiance 10 mg tablet TAKE 1 TABLET BY MOUTH EVERY DAY active Not Available Not Available No t Available Jardiance 25 mg tablet TAKE 1 TABLET BY MOUTH DAILY active Not Available Not Available No t Available Spiriva Respimat 1.25 mcg/actuati on solution for inhalation 03/30 completed Not Available Not Available Not Available Belbuca 150 mcg buccal film 01/10 completed Not Available Not Available Not Available Belbuca 75 mcg buccal film 05/25 completed Not Available Not Available Not Available naloxone 4 mg/actuatio n nasal spray CALL 911. SPR CONTENTS OF ONE SPRAYER (0.1ML) INTO ONE NOSTRIL. REPEAT IN 2-3 MIN IF SYMPTOMS OF OPIOID EMERGENCY PERSIST, ALTERNATE NOSTRILS active Not Available Not Available No t Available Xtampza ER 9 mg capsule sprinkle TAKE 1 CAPSULE BY MOUTH TWICE DAILY 09/07 completed Not Available Not Available Not Available TRUEplus Pen Needle 31 gauge x 5/16 USE DIRECTED active Not Available Not Available No t Available TRUEplus Pen Needle 31 gauge x 3/16 02/08 completed Not Available Not Available Not Available Fiasp U-100 Insulin 100 unit/mL subcutaneou s solution USE PER SLINDING SCALE active Not Available Not Available No t Available OneTouch Delica Plus Lancet 33 gauge USE DIRECTED active Not Available Not Available No t Available OneTouch Delica Plus Lancet 30 gauge USE DIRECTED active Not Available Not Available No t Available OneTouch Verio Reflect Meter 02/08 completed Not Available Not Available Not Available Gvoke HypoPen 2-Pack 1 mg/0.2 mL subcutaneou s auto-inject or INJECT 1 PEN UNDER THE SKIN ONCE. MAY REPEAT ONCE AFTER 15 MINUTES IF NO RESPONSE active Not Available Not Available No t Available Breztri Aerosphere 160 mcg-9mcg-4. 8mcg/actuat ion HFA aerosol inhaler INHALE 2 PUFFS BY MOUTH TWICE DAILY active Not Available Not Available No t Available Ozempic 1 mg/dose (4 mg/3 mL) subcutaneou s pen injector ADMINISTE R 1 MG UNDER THE SKIN WEEKLY active Not Available Not Available No t Available Mounjaro 5 mg/0.5 mL subcutaneou s pen injector INJECT 5 MG UNDER THE SKIN WEEKLY FOR A MONTH active Not Available Not Available No t Available Mounjaro 2.5 mg/0.5 mL subcutaneou s pen injector ADMINISTE R 2.5 MG UNDER THE SKIN 1 TIME A WEEK FOR 4 WEEKS 01/10 completed Not Available Not Available Not Available Vitals Date Recorded Body height Body mass index (BMI) Body weight Provider Name and Address Organization Details Last Updated DateTime 12/08/2022 182.88 cm 51.8 kg/m2 736224.29 g Felicia Coleman [employer] [facility] ralali 12/08/2022 12:10:30 Date Recorded Body height Body mass index (BMI) Body weight Body temperature Heart rate Systolic blood pressure Diastolic blood pressure Provider Name and Address Organization Details Last Updated DateTime 182.88 cm 54.4 kg/m2 607036. 54 g 98.1 [degF] 95 /min 130 mm[Hg] 76 mm[Hg] Syeda Hardin [place] [employer] [facility] ralali 12:31:47 Date Recorded Oxygen saturation Oxygen saturation in Arterial blood by Pulse oximetry Heart rate Respiratory rate Provider Name and Address Organization Details Last Updated DateTime 05/25/2023 94 % 94 % 95 /min 15 /min Louie Jacinto MD [address] [facility], [facility] [address], [place], [address], [place] [employer] [facility] ralali 13:29:59 Date Recorded Body height Body mass index (BMI) Body weight Heart rate Body temperature Heart rate Respiratory rate Systolic blood pressure Diastolic blood pressure Provider Name and Address Organization Details Last Updated DateTime 4 182.88 cm 52.4 kg/m2 343732. 65 g 77 /min 97.3 [degF] 77 /min 20 /min 130 mm[Hg] 82 mm[Hg] Leah Frost MA [facility] 4 11:05:17 Date Recorded Oxygen saturation Oxygen saturation in Arterial blood by Pulse oximetry Provider Name and Address Organization Details Last Updated DateTime 01/11/2024 95 % 95 % Louie Jacinto MD [address], [facility] [address], [place], [address] 01/11/2024 11:59:42 Date Recorded Body height Body mass index (BMI) Body weight Heart rate Respiratory rate Oxygen saturation Oxygen saturation in Arterial blood by Pulse oximetry Provider Name and Address Organization Details Last Updated DateTime 4 182.88 cm 52.4 kg/m2 819545. 65 g 90 /min 16 /min 97 % 97 % Felicia Coleman [facility] 12:19:36 Date Recorded Body height Body mass index (BMI) Body weight Body temperature Heart rate Oxygen saturation Oxygen saturation in Arterial blood by Pulse oximetry Systolic blood pressure Diastolic blood pressure Provider Name and Address Organization Details Last Updated DateTime 4 182.88 cm 54.2 kg/m2 113299. 95 g 97.6 [degF] 82 /min 95 % 95 % 118 mm[Hg] 76 mm[Hg] Cleo De Los Santos MA [facility] 4 14:40:30 Date Recorded Heart rate Respiratory rate Provider N patience and Address Organization Details Last Updated DateTime 04/11/2024 82 /min 15 /min Louie Jacinto MD [address] [facility], [facility] [address], [place], [address] 04/11/2024 15:15:56 Social History Question Answer Notes LastModified by Organizat ion Details LastModified Time Tobacco Smoking Status Former Smoker Cleo De Los Santos MA null, [facility] 09/07/2022 12:01:34 What Is Your Level Of Alcohol Consumption? Occasional [id number] Information not available 06/15/2022 What Is Your Level Of Caffeine Consumption? Heavy Information not available 05/25/2023 In The 14 Days Before Symptom Onset, Have You Had Close Contact With A Laboratory-confir med COVID-19 While That Case Was Ill? No [id number] Information not available 06/15/2022 In The 14 Days Before Symptom Onset, Have You Had Close Contact With A Person Who Is Under Investigation For COVID-19 While That Person Was Ill? No [id number] Information not available 06/15/2022 What Type Of Diet Are You Following? DIABETIC Low Sodium/kaiden betic/gout Diet [id number] Information not available 06/15/2022 Do You Have An Electrostatic Air Filter? No [id number] Information not available 06/15/2022 When Did You Quit Smoking? 1-5yearssince lastcigarette Information not available 05/25/2023 Are There Any Guns Present In Your Home? No [id number] Information not available 06/15/2022 Do You Have A Humidifier? Yes [id number] Information not available 06/15/2022 Where Do You Live? [place] [id number].[id number] Information not available 06/15/2022 Do You Have Moisture Problems In Your Home? No MIGRATION.[id number] Information not available 06/15/2022 What Was The Date Of Your Most Recent Tobacco Screening? 04/11/2024 Information not available 04/11/2024 Have You Ever Been Counseled For Unhealthy Alcohol Use? No MIGRATION.[id number] Information not available 06/15/2022 Do You Have Any Pets? Yes [id number].[id number] Information not available 06/15/2022 Do You Use Your Seat Belt Or Car Seat Routinely? Yes Information not available 09/07/2022 Do You Have Smoke And Carbon Monoxide Detectors In Your Home? Yes [id number].[id number] Information not available 06/15/2022 At What Age Did You Start Smoking Tobacco? 14 Information not available 05/25/2023 Are You Passively Exposed To Smoke? Yes Outside [id number] Information not available 06/15/2022 Do You Feel Stressed (tense, Restless, Nervous, Or Anxious, Or Unable To Sleep At Night)? [id number] Information not available 05/25/2023 Do You Use Any Illicit Or Recreational Drugs? No MIGRATION.[id number] Information not available 06/15/2022 Do You Use Sunscreen Routinely? No MIGRATION.[id number] Information not available 06/15/2022 Has Tobacco Cessation Counseling Been Provided? No MIGRATION.[id number] Information not available 06/15/2022 How Many Years Have You Smoked Tobacco? 20 Information not available 05/25/2023 Have You Recently Traveled Abroad? No MIGRATION.[id number] Information not available 06/15/2022 Do You Have Any Dietary Restrictions? No MIGRATION.[id number] Information not available 06/15/2022 Do You Or Have You Ever Used Any Other Forms Of Tobacco Or Nicotine? No MIGRATION.16123 [id number] Information not available 06/15/2022 Sex: Unknown Functional Status None recorded. Mental Status None recorded. Family History Relationship Description Onset Age of this Age Resolved Age Notes LastModified by Organization Details LastModified Time Father Heart disease [id number] Not available 06/15/2022 19:28:20 Father Hypertensive disorder [id number] Not available 06/15/2022 19:28:20 Father Diabetes mellitus [id number] Not available 06/15/2022 19:28:20 Father Arthritis [id number] Not available 06/15/2022 19:28:20 Father Coronary artery bypass graft [id number] Not available 06/15/2022 19:28:20 Brother Diabetes mellitus [id number] Not available 06/15/2022 19:28:20 Medical History Condition Response HEADACHES/MIGRAINES Y USE OF BLOOD THINNERS Y DIABETES, TYPE Y HEART DISEASE/HEART PROBLEMS Y SKIN PROBLEMS Y LUNG DISEASE/DISORDER Y COPD Y OBESITY Y ASTHMA Y GOUT Y DEPRESSION (INCLUDING POST ) Y BACK / NECK PROBLEMS Y Past Encounters Encounter ID Performer Location Encounter Start Date Encounter Closed Date Diagnosis/Indication Diagnosis SNOMED-CT Code Diagnosis ICD10 Code Diagnosis Note [id number] Eugenio Prather MD [facility] [address] [address] 03/30/2021 00:00:00 03/30/2021 10:27:54 [id number] Eugenio Prather MD [facility] [place] [address] [place] [address] 05/11/2021 00:00:00 05/11/2021 10:46:15 [id number] Jorge Cohen DPM [facility] [place] [address] [address] 05/17/2021 00:00:00 05/17/2021 19:30:11 [id number] Jorge Cohen DPM [facility] [place] [address] [place] [address] 06/07/2021 00:00:00 06/07/2021 09:45:09 [id number] [facility] [place] [address] [place] [address] 07/12/2021 00:00:00 07/12/2021 11:54:23 [id number] Troy chang MD [facility] General Surgery [address] [address] 07/15/2021 00:00:00 07/15/2021 14:18:09 [id number] Troy chang MD [facility] General Surgery [address] [address] 08/31/2021 00:00:00 08/31/2021 14:38:43 [id number] Jorge Cohen DPM [facility] [place] [address] [address] 09/09/2021 00:00:00 09/09/2021 10:06:50 [id number] Jorge Cohen DPM [facility] [place] [address] [address] 09/16/2021 00:00:00 09/16/2021 09:46:04 [id number] Jorge Cohen DPM [facility] Podiatry [address] [address] 10/21/2021 00:00:00 10/21/2021 15:01:41 [id number] Louie Jacinto MD [facility] [place] [address] [address] 02/15/2022 00:00:00 02/23/2022 12:17:29 [id number] Louie Jacinto MD [facility] [place] [address] [address] 03/14/2022 00:00:00 04/28/2022 14:49:33 [id number] Louie Jacinto MD [facility] [place] [address] [address] 09/07/2022 11:41:33 09/08/2022 08:29:46 Moderate persistent asthma 740662032 J45.40 Posterior rhinorrhea 758 23615 R09.82 [id number] Jorge Cohen DPM [facility] [address] [address] 11/17/2022 15:04:20 11/17/2022 15:50:37 Tinea pedis 5947202 B35.3 Bilateral feetPatien t is to soak in warm Epsom salt soaks math for approximat latisha 20 min daily for 5-7 days until infection has resolved. Patient is to dress the wound daily with topical antibiotic ointment and Band-Aid. Patient to monitor for signs of infection, if worsens seek medical attention at the nearest ER.Follow- up in 2 weeks [id number] Jorge Cohen DPM [facility] [place] [address] [place] [address] 12/08/2022 12:02:40 12/08/2022 14:09:05 Tinea pedis 0169240 B35.3 Bilateral feetimprov ingwash feet daily with Hibiclens until skin is normal non peelingref ill ketoconazo lefollow-u p in 2 weeks if continues to be problemati c [id number] Louie Jacinto MD [facility] [address] [place] [address] 0 05/25/2023 12:21:49 05/26/2023 08:21:22 Moderate persistent asthma 757711796 J45.40 Posterior rhinorrhea 758 93472 R09.82 [id number] Louie Jacinto MD [facility] [address] [place] [address] 0 01/11/2024 10:26:48 01/11/2024 15:13:26 Moderate persistent asthma 214885684 J45.40 Posterior rhinorrhea 758 95573 R09.82 [id number] Jorge Cohen DPM [facility] [place] [address] [place] [address] 01/16/2024 12:10:40 01/19/2024 10:51:05 Diabetes mellitus 72715641 E11.9 continue diabetic control per PCP recommenda tion Morbid obesity 480532452 E66.01 recommend weight loss Dystrophia unguium 90502 009 L60.3 Nails 1 through 10 were debrided with sharp mechanical debridemen t without incident. Nails were debrided and greater than 50% length and thickness where needed. Unable to cut own toenails [id number] Z74.1 Secondary to COPD [id number] Louie Jacinto MD [facility] [address] [place] [address] 0 04/11/2024 14:09:27 04/26/2024 15:19:23 Posterior rhinorrhea [id number] R09.82 Asthma-chr onic obstructive pulmonary disease overlap syndrome [id number] J44.9 Health Concerns Section Related Observation LastModified by Organization Detai ls LastModified Time None Recorded Concern Status LastModified by Organization Details LastModified Time None Recorded Advance Directives Directive None Recorded Payers Encounter Date Sequence Insurance Name Policy Number Policy Tesfaye Covered Member ID Tesfaye Member ID Guarantor Name 12/08/2022 3 [facility] (MEDICAID REPLACEMENT - HMO) [id number] Kane Leahy [id number] Jerzy Leahy 05/25/2023 3 [facility] (MEDICAID REPLACEMENT - HMO) [id number] Kane Leahy [id number] Jerzy Leahy 01/11/2024 1 [facility] (MEDICARE REPLACEMENT HMO) Jerzy Núñezle [id number] Jerzy Leahy 01/16/2024 1 [facility] (MEDICARE REPLACEMENT HMO) Jerzy Hooks Tosin [id number] Jerzy Hooks Carmichael 04/11/2024 2 [place] Jerzy Núñezle [id number] Jerzy Hooks Tosin 04/11/2024 1 [facility] (MEDICARE REPLACEMENT HMO) Jerzy Hooks Carmichael [id number] Jerzy Hooks Tosin Notes Date Note Type Note Provider Name and Address Organization Details Recorded Time 3 text/html . Patient is a 47-year-old male diabetic who returns the office for follow up on tinea pedis of the foot. Patient states his condition has improved. Patient states he still has some medication left which I told him to continue using to completely resolve the issue which is still improving. Patient denies any new pedal complaints. Jorge Cohen DPM [address] [place] [address], [place], [address], [facility] 12/08/2022 13:57:16 4 text/html Primary care/Referring provider: JAMILAH Briseno-CPatient is here to go over his asthma management.Initial development of shortness of breath: 1989Duration of shortness of breath: 34 yearsCondition of shortness of breath: stableTiming of shortness of breath: morningFrequency: every hourLimits activities: yesAggravating factors: walking, showering, dressingAlleviating factors: restModified [employer] Research [place] ([employer]) Dyspnea Scale - Grade 2Grade 0 I only get breathless with strenuous exercise .Grade 1 I get short of breath when hurrying on the level or walking up a slight hill .Grade 2 I walk slower than people of the same age on the level because of breathlessness or have to stop for breath when walking at my own pace on the level .Grade 3 I stop for breath after walking about 100 yards or after a few minutes on the level .Grade 4 I am too breathless to leave the house or I am breathless when dressing .Treatment history:Albuterol nebs as needed since 2018Albuterol HFA as needed since 1988Spiriva Handihaler 1 daily until 02/2019Anoro Ellipta 1 inhalation daily since 03/2019Flovent HFA 110 mcg 2 puffs BID since 2Patient's personal best peak flow remains at 370 L/min.Other symptoms:Drooling: noDysarthria: noDysphagia: noWeak mastication: noFacial weakness: noNasal speech: noProtruding tongue: noProductive cough: clearWheezing: noChest tightness: yesOrthopnea: sleeps in a chair using Trilogy for CHFFrequent throat clearing or swallowing: yesPalpitations: noHeartburn: noEdema: yesEnvironmental exposures:Nicotine smoke: 1.5 ppd 0268-3926 = 28 years = 42 pack yearsPaint: noDye: noDust mites: yesMold: noDamp basement: noWood burning stove: noAnimal dander: dog, catCockroaches: noPollen: yesArsenic: noAsbestos: noBeryllium: noCadmium: noChromium: noCoal smoke: noDiesel fumes: noNickel: noSilica: noSoot: noEPWORTH SLEEPINESS SCALE (ESS)CHANCE OF DOZING SCORE0 = would never doze1 = slight chance of dozing2 = moderate chance of dozing3 = high chance of dozingSITUATION AND CHANCE OF DOZINGSitting and reading - 2Watching television - 2Sitting inactive in a public place (e.g. a theater or meeting) - 3As a passenger in a car for an hour without a break - 2Lying down to rest in the afternoon when circumstances permit - 3Sitting and talking to someone - 0Sitting quietly after lunch without alcohol - 1In a car, while stopped for a few minutes in the traffic - 0TOTAL SCORE 13Subjectively, patient has a moderate chance of dozing. Louie Jacinto MD [address] [place] [address], [address], [address], [place] - [facility] 05/25/2023 13:30:14 4 text/html Primary care/Referring provider: JAMILAH Briseno-CPatient is here to go over his asthma management.Initial development of shortness of breath: 1988Duration of shortness of breath: 35 yearsCondition of shortness of breath: stableTiming of shortness of breath: morningFrequency: every hourLimits activities: yesAggravating factors: walking, showering, dressingAlleviating factors: restModified [employer] [place] ([employer]) Dyspnea Scale - Grade 2Grade 0 I only get breathless with strenuous exercise .Grade 1 I get short of breath when hurrying on the level or walking up a slight hill .Grade 2 I walk slower than people of the same age on the level because of breathlessness or have to stop for breath when walking at my own pace on the level .Grade 3 I stop for breath after walking about 100 yards or after a few minutes on the level .Grade 4 I am too breathless to leave the house or I am breathless when dressing .Treatment history:Albuterol nebs as needed since 2018Albuterol HFA as needed since 1988Spiriva Handihaler 1 daily until 02/2019Anoro Ellipta 1 inhalation daily since 03/2019Flovent HFA 110 mcg 2 puffs BID since 2Patient's personal best peak flow remains at 370 L/min.Other symptoms:Drooling: noDysarthria: noDysphagia: noWeak mastication: noFacial weakness: noNasal speech: noProtruding tongue: noProductive cough: clearWheezing: noChest tightness: yesOrthopnea: sleeps in a chair using Trilogy for CHFFrequent throat clearing or swallowing: yesPalpitations: noHeartburn: noEdema: yesEnvironmental exposures:Nicotine smoke: 1.5 ppd 4530-5040 = 28 years = 42 pack yearsPaint: noDye: noDust mites: yesMold: noDamp basement: noWood burning stove: noAnimal dander: dog, catCockroaches: noPollen: yesArsenic: noAsbestos: noBeryllium: noCadmium: noChromium: noCoal smoke: noDiesel fumes: noNickel: noSilica: noSoot: noEPWORTH SLEEPINESS SCALE (ESS)CHANCE OF DOZING SCORE0 = would never doze1 = slight chance of dozing2 = moderate chance of dozing3 = high chance of dozingSITUATION AND CHANCE OF DOZINGSitting and reading - 2Watching television - 2Sitting inactive in a public place (e.g. a theater or meeting) - 2As a passenger in a car for an hour without a break - 1Lying down to rest in the afternoon when circumstances permit - 2Sitting and talking to someone - 0Sitting quietly after lunch without alcohol - 0In a car, while stopped for a few minutes in the traffic - 0TOTAL SCORE 9Subjectively, patient has a moderate chance of dozing. Louie Jacinto MD [address] [facility], [facility] [address], [place], [address], [employer] 01/11/2024 11:59:51 4 text/html . Patient is a 48-year-old male morbidly obese diabetic who returns the office for follow-up on diabetic foot care. Patient is doing well he denies any open wounds or infection of the feet. Patient states he has been wheezing due to his COPD flare he is an ex-smoker. Patient denies any other complaints. Jorge Cohen DPM [address] [facility], [facility], [place], [address], [employer] 01/16/2024 13:42:00 4 text/html Primary care/Referring provider: JAMILAH Briseno-CPatient is here to go over his asthma management.Initial development of shortness of breath: 1989Duration of shortness of breath: 35 yearsCondition of shortness of breath: stableTiming of shortness of breath: morningFrequency: every hourLimits activities: yesAggravating factors: walking, showering, dressingAlleviating factors: restModified [employer] [place] ([employer]) Dyspnea Scale - Grade 2Grade 0 I only get breathless with strenuous exercise .Grade 1 I get short of breath when hurrying on the level or walking up a slight hill .Grade 2 I walk slower than people of the same age on the level because of breathlessness or have to stop for breath when walking at my own pace on the level .Grade 3 I stop for breath after walking about 100 yards or after a few minutes on the level .Grade 4 I am too breathless to leave the house or I am breathless when dressing .Treatment history:Albuterol nebs as needed since 2018Albuterol HFA as needed since 1988Spiriva Handihaler 1 daily until 02/2019Anoro Ellipta 1 inhalation daily since 03/2019Flovent HFA 110 mcg 2 puffs BID since 2Patient's personal best peak flow remains at 370 L/min.Other symptoms:Drooling: noDysarthria: noDysphagia: noWeak mastication: noFacial weakness: noNasal speech: noProtruding tongue: noProductive cough: clearWheezing: noChest tightness: yesOrthopnea: sleeps in a chair using Trilogy for CHFFrequent throat clearing or swallowing: yesPalpitations: noHeartburn: noEdema: yesEnvironmental exposures:Nicotine smoke: 1.5 ppd 4632-0411 = 28 years = 42 pack yearsPaint: noDye: noDust mites: yesMold: noDamp basement: noWood burning stove: noAnimal dander: dog, catCockroaches: noPollen: yesArsenic: noAsbestos: noBeryllium: noCadmium: noChromium: noCoal smoke: noDiesel fumes: noNickel: noSilica: noSoot: noEPWORTH SLEEPINESS SCALE (ESS)CHANCE OF DOZING SCORE0 = would never doze1 = slight chance of dozing2 = moderate chance of dozing3 = high chance of dozingSITUATION AND CHANCE OF DOZINGSitting and reading - 1Watching television - 2Sitting inactive in a public place (e.g. a theater or meeting) - 0As a passenger in a car for an hour without a break - 1Lying down to rest in the afternoon when circumstances permit - 2Sitting and talking to someone - 0Sitting quietly after lunch without alcohol - 1In a car, while stopped for a few minutes in the traffic - 0TOTAL SCORE 7Subjectively, patient has a slight chance of dozing. Louie Jacinto MD [address] [place] [address], [place], [address], [facility] 04/11/2024 16:30:05
--- OUTSIDE RECORDS SUMMARY | 2024-08-19 01:34 | XMS_ITS | Clinical Summary ---
Author Organization [facility] [address] Address [address] [place] [address] Care Team Providers Care Waiter/Waitress Room Service Name Role Phone Unavailable Primary Care Provider Unavailabl e Medications aspirin (MICHELLE CHEWABLE) 81 mg Tablet, ChewableIndications :Hyperlipidemia, unspecified hyperlipidemia type Take 1 Tablet (81 mg) by mouth daily. 90 Tablet 4 Active atorvastatin (LIPITOR) 20 mg tabletIndications:T ype 2 diabetes mellitus with hyperglycemia, without long-term current use of insulin ([facility]),Hyperlipi demia, unspecified hyperlipidemia type Take 1 Tablet (20 mg) by mouth daily at bedtime. 90 Tablet 4 Active carvediloL (COREG) 6.25 mg tabletIndications:B enign hypertension Take 1 Tablet (6.25 mg) by mouth 2 times daily with meals. 180 Tablet 4 Active furosemide (LASIX) 40 mg tabletIndications:E enedelia of both lower legs,Benign hypertension Take 1 Tablet (40 mg) by mouth 2 times daily. 180 Tablet 4 Active gabapentin (NEURONTIN) 300 mg capsuleIndications: Polyneuropathy associated with underlying disease Take 1 Capsule (300 mg) by mouth 3 times daily. 270 Capsule 4 Active metFORMIN (GLUCOPHAGE) 500 mg tabletIndications:T ype 2 diabetes mellitus with hyperglycemia, without long-term current use of insulin ([facility]) Take 1 Tablet (500 mg) by mouth 3 times daily with meals. 270 Tablet 4 Active potassium chloride (KLOR-CON M10) 10 mEq Extended Release tabletIndications:E enedelia of both lower legs Take 1 Tablet (10 mEq) by mouth 2 times daily. 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
--- OUTSIDE RECORDS SUMMARY | 2024-08-19 01:34 | XMS_ITS | Continuity of Care Document ---
Author Organization [facility] Address [address] [address] [place] [address] Phone Care Team Providers Care Flagger Name Role Phone Alfa Jolly MD Unavailable Unavailable Allergies, Adverse Reactions, Alerts Substance Reaction Status Criticality Penicillins Active No Information Medications Medication Instructions Dosage Effective Dates (start - stop) Status Comments Ventolin HFA 90 mcg/actuation aerosol inhaler inhale 2 puff by inhalation route every 4 - 6 hours as needed - Active PRN for sob Lipitor 10 mg tablet take 1 tablet by oral route every day 10 MG - Active lisinopril 10 mg tablet take 1 tablet by oral route every day 10 MG - Active Coreg 6.25 mg tablet take 1 Tablet by oral route 2 times every day with food 6.25 MG - Active Procedures Procedure Date PREV VISIT, NEW, AGE 18-39 OFFICE/OUTPATIENT VISIT, [facility] Advance Directives Directive Yes / No Effective Date File Name No Information Encounters Encounter Description Practice Location Reason(s) For Visit Diagnoses Date Provider Providers Copied on Encounter PREV VISIT, NEW, AGE 18-39 [facility], [address] [place], [id number], [place] tel:[phone] [facility] PHysical (chief complaint) Encounter for general adult medical exam w abnormal findingsEssential (primary) hypertensionCardiom yopathyAsthma [address] [facility] [address], [place], [place], [id number] , [place]. tel:[phone] Referring Provider: Georgette Trinh [place], [place], [id number]. tel:[phone] Family History Family Member Type Diagnosis Age At Onset Brother Problem (finding) Diabetes mellitus type 2 Father Problem (finding) Coronary artery disease 38 Father Problem (finding) Diabetes mellitus type 2 Brother Problem (finding) Alive and well Mother Problem (finding) of metabo lic acidosis at age 38 (Cause Of ) 38 Father Problem (finding) Payers Payer name Insurance type Covered libertarian ID Authoriza tion(s) No Information Social History Type Description Quantity Date Captured Comments Alcohol Use Details No Caffeine Use Details Unknown Tobacco Use Status Moderate cigarette smoker (10-19 cigs/day) Smoking Status Heavy tobacco smoker Smoking Tobacco Use Details Cigarette: No Details Available Cigarette: 10 Cigarettes per day Sex Male Vital Signs Date / Time: Height Weight BMI Pulse Rate Blood Pressure Temperature Respiratory Rate Body Surface Area Head Circumference BMI percentile Pulse Ox Inhaled Ox 1:24 PM 70.47 in 353.60 lbs 50.0 6 kg/m eter (2) 84 /min 104/90 mm[Hg] 97.8 F 18 /min Chief Complaint And Reason For Visit From encounter dated '04/25/2017 11:00'. PHysical (chief complaint). Description: Pt needs annual physical. Pt has asthma and he uses albuterol. Pt uses albuterol about 2-3 per month. Pt barrett not use prophylactic meds. . Pt is on coreg and lisinopril for HTN. Pt states that he notices low back pain for 6 months. 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 Pt denies any numbness. Pt deneis any loss of bladder control. Pt has history of CHF and COPD as well. Pt denies any acute sob. Pt c/o intermittent right lower quadrant pain for 4 weeks. Pt has history of vental herniasurgery repairt on left side severasl years ago. pt denies any nausea, vomiting, diarrhea, constipation. Plan Of Treatment Date Type Action Status Referral Ordered: ANNIE CERNA (related to Cardiomyopathy) ordered Referral Referred To: ANNIE CERNA [address] [place], [place], [phone] Ordered: Referrals: ANNIE CERNA. Evaluate and treat ordered Referral Ordered: CHEST X-RAY PA/LAT TWO-VIEWS ordered Referral Ordered: CT ABDOMEN&PELVIS W/CONTRAST ordered History Of Present Illness Encounter Date Complaint History Of Prese nt Illness PHysical Pt needs annual physical. Pt has asthma and he uses albuterol. Pt uses albuterol about 2-3 per month. Pt barrett not use prophylactic meds. . Pt is on coreg and lisinopril for HTN. Pt states that he notices low back pain for 6 months. 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 Pt denies any numbness. Pt deneis any loss of bladder control. Pt has history of CHF and COPD as well. Pt denies any acute sob. Pt c/o intermittent right lower quadrant pain for 4 weeks. Pt has history of vental hernia surgery repairt on left side severasl years ago. pt denies any nausea, vomiting, diarrhea, constipation. Instructions Date Instruction Additional Infor mation Prescribed Activity and Exercise Education Related to Dietary Surveillance and Counseling Prescribed Diet Educ ation/Lifestyle Education Regarding Diet Related to Dietary Surveillance and Counseling Assessments Type Assessment Date assessment Encounter for general adult medi suhail exam w abnormal findings assessment Essential (primary) hypertension assessment Cardiomyopathy assessment Asthma Mental Status Date Cognitive Assessment Orientation - [place] ed to time, place, person, situation.
--- OUTSIDE RECORDS SUMMARY | 2024-08-19 01:34 | XMS_ITS | Clinical Summary ---
Author Organization [facility] Address [address] [place] [address] Phone Care Team Providers Care Bookstore Clerk Name Role Phone Marilee Vale MD Primary Care Provider [phone] Aravind Coelho MD Unavailable Allergies Active Allergy Reactions Criticality Noted Date Comments Dog Fennel Allergy Skin Test Rash,Itching Low 06/28 Cats Penicillins Hives,Rash,Itching High 06/28/2024 Medications fluticasone (FLONASE) 50 MCG/ACT Suspension 1 [place] by Nasal route daily. Use in each nostril as directed. Active DULoxetine (CYMBALTA) [address] Particles Take 60 mg by mouth daily. Active metFORMIN (GLUCOPHAGE-XR) 500 MG TABLET SR 24 HR Take 500 mg by mouth 2 times daily. This RX is for Metformin SR. Active OneTouch Delica Lancets 30G Misc by Does not apply route. Active furosemide (LASIX) 40 MG Tablet Take 40 mg by mouth daily. Active ziprasidone (GEODON) 60 MG Capsule Take 60 mg by mouth 2 times daily (with meals). Active buPROPion (WELLBUTRIN) 300 MG TABLET SR 24 HR XL tablet Take 300 mg by mouth every morning. Active carvedilol (COREG) 6.25 MG Tablet Take 6.25 mg by mouth 2 times daily. Active tolnaftate (TINACTIN) 1 % Powder Apply 2 times daily. Active losartan (COZAAR) 50 MG Tablet Take 50 mg by mouth daily. Active ziprasidone (GEODON) 40 MG Capsule Take 80 mg by mouth 2 times daily (with meals). Active hydrOXYzine (VISTARIL) 50 MG Capsule Take 50 mg by mouth 3 times daily as needed. Active budesonide-form oterol fumarate (SYMBICORT) 160-4.5 MCG/ACT Aerosol take 2 Puffs by inhalation 2 times daily. Active ALBUTEROL SULFATE HFA IN take 90 mcg by inhalation. Active albuterol (PROVENTIL, VENTOLIN) (2.5 MG/3ML) 0.083% Nebulizer Soln 2.5 mg by Nebulization route every 4 hours as needed. Active celecoxib (CeleBREX) 200 MG Capsule Take 200 mg by mouth 2 times daily. Active empagliflozin (Jardiance) 25 MG Tablet Take 25 mg by mouth daily. Active doxycycline hyclate (VIBRAMYCIN) 100 MG Capsule Take 100 mg by mouth 2 times daily. Active busPIRone (BUSPAR) 10 MG Tablet Take 10 mg by mouth 3 times daily. Active atorvastatin (LIPITOR) 80 MG Tablet Take 80 mg by mouth daily. Active Glucose Blood (Shipping Easyuch Ultra Blue Test) Strip by In Vitro route. Use as directed Active triamcinolone (KENALOG) 0.1 % Cream Apply 2 times daily. Application Site: bottom of right foot twice daily (Description and Location) Active nystatin (MYCOSTATIN) 612118 UNIT/GM Cream Apply 3 times daily. Application Site: affected area (Description and Location) Active Glucagon (Gvoke HypoPen 2-Pack) 1 MG/0.2ML Solution Auto-injector by Subcutaneous route. Active Insulin Pen Needle (TRUEplus Pen [place]) 31G X 5 MM Misc by Does not apply route. Active ASPIRIN PO Take by mouth. Acti ve methocarbamol (ROBAXIN) 750 MG Tablet Take 750 mg by mouth 4 times daily. Active azelastine (ASTELIN) 0.1 % Solution 2 Sprays by Nasal route 2 times daily. Use in each nostril as directed Active lamoTRIgine (LaMICtal) 100 MG Tablet Take 100 mg by mouth daily. Active potassium chloride SA (KLORCON M) 10 MEQ Tablet Controlled Release Take 10 mEq by mouth daily. Active gabapentin (NEURONTIN) 300 MG Capsule Take 300 mg by mouth 3 times daily. Active liver oil-zinc oxide (DESITIN) 40 % Ointment Apply as needed. Application Site: affected area (Description and Location) Active Buprenorphine HCl (Belbuca) 150 MCG FILM by Buccal route. Active Budeson-Glycopy rrol-Formoterol (Breztri Aerosphere) 160-9-4.8 MCG/ACT Aerosol take by inhalation. Active Ozempic, 1 MG/DOSE, 4 MG/3ML Solution Pen-injector 1 mg by Subcutaneous route once a week. 9 mL 5 Active insulin glargine (Lantus SoloStar) 100 UNIT/ML Solution Pen-injector 50 Units by Subcutaneous route nightly. 45 mL 1 5 Active insulin aspart (NovoLOG FlexPen) 100 UNIT/ML Solution Pen-injector 18 units before each meal; correctional factor insulin of 1:15 if >140 mg/dl, up to 90 units per day 90 mL 1 5 Active Active Problems Problem Noted Date Diagnosed Date Type 2 diabetes mellitus wit h diabetic polyneuropathy, with long-term current use of insulin 06/28/2024 Encounters Date Type Department Care Team Description 07/01/2024 Telephone [facility] Endocrinology [facility] [address] [place] [address] Aravind Coelho MD Medication Management 06/28/2024 9:30 AM CDT Office Visit [facility] [address] [place] [address] Aravind Coelho MD Type 2 diabetes mellitus with diabetic polyneuropathy, with long-term current use of insulin (HCC) (Primary Dx); Insulin dose changed ([facility]); Class 3 severe obesity due to excess calories with serious comorbidity and body mass index (BMI) of 50.0 to 59.9 in adult (HCC); Hypoglycemia Discharge Disposition: Discharged to home or Selfcare 06/28/2024 Travel from Last 3 Months Family History Relation Name Status Comments Mother Social History Tobacco Use Types Packs/Day Years Used Date Smoking Tobacco: Never Smokeless Tobacco: Never Tobacco Cessation:Counseling Given: No Alcohol Use Standard Drinks/Week Comments Not Currently 0 (1 standard drink = 0.6 oz pur e alcohol) 2x year Sexually Active Control Partners Comments Not Currently Sex and Gender Information Value Date Recorded Sex Assigned at Not on file Legal Sex Male 10:32 PM CDT Gender Identity Not on file Sexual Orientation Not on file Last Filed Vital Signs Vital Sign Reading Time Taken Comments Blood Pressure 130/84 06/28/2024 9:40 AM CDT Pulse 83 06/28/2024 9:40 AM CDT Temperature 36.8 C (98.2 F) 06/28/2024 9:40 AM CDT Respiratory Rate 18 06/28/2024 9:40 AM CDT Oxygen Saturation 95% 06/28/2024 9:40 AM CDT Inhaled Oxygen Concentration - - Weight 179.2 kg (395 lb) 06/28/2024 9:40 AM CDT Height 182.9 cm (6') 06/28/2024 9:40 AM CDT Body Mass Index 53.57 06/28/2024 9:40 AM CDT Plan of Treatment Health Maintenance Due Date Last Done Comments Diabetes: Eye Exam 1977 Hepatitis C Virus (HCV) Screening 1977 TdaP Immunization 1977 Diabetes: Nephropathy Screening 1995 Hepatitis B Immunization (1 of 3 - 19+ 3-dose series) 1996 Colonoscopy 2022 Colorectal Cancer Screening 2022 SARS-COV-2 Immunization ( season) 2023 Influenza Immunization (Seas on Ended) 2024 03/12/2021, 01/28/2021, 04/21/2012 Diabetes: Hemoglobin A1c 12/29/2024 025, 08/30/2020 Diabetes: Foot Exam 06/28/2025 06/28/2024 Respiratory Syncytial Virus (RSV) Immunization (Adult) (1 - 1-dose 75+ series) 2052 Pneumococcal Immunization Combined Completed 03/14/2022 Meningococcal Immunization (ACWY) Aged Out No longer eligible b ased on patient's age to complete this topic Rotavirus Immunization Aged Out No lo nger eligible based on patient's age to complete this topic Procedures Procedure Name Priority Date/Time Associated Diagnosis Comments POCT GLYCOSYLATED HEMOGLOBIN Routine 06/28/2024 10:21 AM CDT Type 2 diabetes mellitus with diabetic polyneuropathy, with long-term current use of insulin (HCC) from Last 3 Months Results * (ABNORMAL) POCT GLYCOSYLATED HEMOGLOBIN (06/28/2024 10:21 AM CDT) HGB-A1C 9.1(A) 4 - 6 % Blood 06/28/2024 10:2 1 AM CDT Aravind Coelho MD POINT OF CARE TESTING (MANUAL) F inal Result from Last 3 Months Insurance [place]ICAID [place] Care Teams Bookstore Clerk Relationship Specialty Start Date End Date Marilee Vale MD [address] [place] [id number] PCP - General Family Medicine 11/06/23 Aravind Coelho MD [address] [address] Consulting Physician Endocrinology 06/28/24
--- OUTSIDE RECORDS SUMMARY | 2024-08-19 01:34 | XMS_ITS | Clinical Summary ---
Author Organization [facility] Address [address] [place] [address] Care Team Providers Care Professor Of Latin American Studies Name Role Phone Felicia Ramos PA-C Primary Care Provider + Source Comments [facility],non-owned Affiliates and Associated Physician Practices is amultiple site organization consisting of ambulatory clinics and hospital sitesin [place], [place], [place] and [place]. This disclosure is being madepursuant to the Care Everywhere program and may not contain all information available regarding this patient. 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 Gender Identity Not on file Sexual Orientation Not on file Plan of Treatment Health Maintenance Due Date Last Done Comments COLOGUARD (AGES 45-75) - COL ON CA SCREENING 1977 COLON MONITORING 1977 COLONOSCOPY - COLON CA SCREENING 1977 CT COLONOGRAPHY - COLON CA SCREENING 1977 Colorectal Cancer Screening 1977 FIT - COLON CA SCREENING 1977 FLEX SIG - COLON CA SCREENING 1977 LIPID TESTING 1977 HIV SCREENING 1992 HEPATITIS C SCREENING 05/29/1995 DTAP/TDAP/TD VACCINES (1 - Tdap) 1996 HEPATITIS B VACCINE (1 of 3 - 19+ 3-dose series) 1996 COVID-19 VACCINE (2023-2 5 season) 2023 DEPRESSION SCREENING 04/17/2024 INFLUENZA VACCINE (Season Ended) 2024 ZOSTER VACCINE (1 of 2) 2027 HIB VACCINE Aged Out No longer eligi ble based on patient's age to complete this topic HPV VACCINE Aged Out No longer eligi ble based on patient's age to complete this topic MENINGOCOCCAL (Group B) VACC INE SHARED DECISION-MAKING Aged Out No longer eligibl e based on patient's age to complete this topic MENINGOCOCCAL GROUPS A/C/Y/W VACCINE Aged Out No longer eligible b ased on patient's age to complete this topic PNEUMOCOCCAL VACCINE Aged Out No long er eligible based on patient's age to complete this topic Insurance MEDICAID [place] [id number] Care Teams Professor Of Latin American Studies Relationship Specialty Start Date End Date Felicia Ramos PA-C [address] [place], [place] [id number] PCP - General 03/22/19
--- NOTE | 2024-08-19 12:43 | P.HP_ITS ---
History of Present Illness History of Present Illness Consent: Risks, benefits, and alternatives have been discussed and questions answered. Patient agrees to proceed with procedure. Chief complaint: spondylosis lumbosacral, chronic low back pain Narrative: Jerzy Leahy is a 49 year old male with chronic, recalcitrant and disabling bilateral lumbosacral back pain secondary to degenerative spondylosis with failure to respond to aggressive conservative measures including PT, oral and topical analgesics, opioid and nonopioid analgesics, rest, time and activity/behavioral modification over the past 1-2 years who presents for diagnostic/prognostic medial branch blocks of the bilateral L3, L4, L5 medial branches/dorsal ramus(#1) addressing the ipsilateral L4-5, L5-S1 facet joints under fluoroscopic guidance and with contrast control. Review of Systems Review of Systems: Patient denies any new infectious, allergic, cardiopulmonary, neurologic or con stitutional symptoms or changes in activity tolerance or exercise capacity including new or progressive SOB/MONTIEL, peripheral edema, productive cough, dysuria, nausea/vomiting, diarrhea, weight change, fevers/chills/night sweats, new or progressive neurologic deficit, cognitive or mood changes since last seen, except as documented in the HPI. All systems reviewed & are unremarkable except as noted in HPI and below PMFSH Past Medical History Medical History Heart failure with preserved ejection fraction echo pain 04/05/2020 showed a severely enlarged left ventricular chamber with an EF at the low end of normal estimated 50 to 55%, abnormal diastolic function, and mild pulmonary hypertension Dyslipidemia Anxiety and depression Gastroesophageal reflux disease Obstructive sleep apnea Type 2 diabetes mellitus Chronic obstructive pulmonary disease Obesity hypoventilation syndrome Chronic respiratory failure with hypoxia and hypercapnia he is on p.r.n. oxygen during the day and uses a trilogy unit with at nighttime Tobacco abuse Hypertension Surgical History Surgical History History of hernia repair History of cardiac catheterization no intervention History of tonsillectomy Family History Family History Father Diabetes mellitus Other Acute myocardial infarction Social History Social History Social History: Surrogate medical decision maker: Candie Leahy, . Code status: Full code. Smoking packs per day: 2 Smoking cigarettes per day: 40.0 Years smoked: 21 Smoking pack-years: 42.00 Smoking status: Former smoker Tobacco type: cigarettes Second hand tobacco smoke exposure: Yes Smoking end date: 02/24/21 Alcohol intake: current Alcohol use details: rarely Substance use: current Substance use type: marijuana Do You Feel Safe in your Home?: Yes Lack of Transportation: No Lack of Food: Sometimes True Current Housing: I Have Housing Concerned About Future Housing: No Difficulty Paying Gas/Electric Bills: No Difficulty Paying for Meds: No Currently Unemployed: No Education: Trade/Vocational Certificate Difficulty w/ Childcare or Family Care: No Living arrangements: with family Spiritual care concerns: No Meds Home Medications and Allergies Home Medications ?Medication ?Instructions ?Recorded ?Confirmed ?Type carvedilol 6.25 mg tablet 6.25 mg PO Q12H 10/18/20 08/12/24 History albuterol sulfate 1.25 mg/3 mL 2.5 mg inhalation Q4H PRN 04/13/21 08/12/24 History solution for nebulization Shortness Of Breath gabapentin 100 mg capsule 300 mg PO BID 04/13/21 08/12/24 History losartan 25 mg tablet 50 mg PO DAILY 04/13/21 08/12/24 History albuterol sulfate 90 mcg/actuation 2 puff inhalation Q4-6H PRN 10/22/23 08/12/24 History aerosol inhaler shortness of breath or wheezing atorvastatin 20 mg tablet 80 mg PO HS 10/22/23 08/12/24 History azelastine 137 mcg (0.1 %) nasal 137 mcg intranasal BID 10/22/23 08/12/24 History spray bupropion HCl 150 mg 24 hr tablet, 150 mg PO QAM 10/22/23 08/12/24 History extended release furosemide 40 mg tablet (Lasix) 40 mg PO BID 10/22/23 08/12/24 History lamotrigine 100 mg tablet 100 mg PO BID 10/22/23 08/12/24 History ziprasidone HCl 60 mg capsule 60 mg PO DAILY 10/22/23 08/12/24 History pen needle, diabetic 29 gauge x #100 ea 10/23/23 08/12/24 Rx 1/2 aspirin 81 mg tablet,delayed 81 mg PO DAILY 02/25/24 08/12/24 History release budesonide 160 mcg-glycopyr 9 2 inh inhalation BID 02/25/24 08/12/24 History mcg-formot 4.8 mcg/actuation HFA inhaler (Breztri Aerosphere) hydroxyzine pamoate 50 mg capsule 50 mg PO BID PRN Anxiety 02/25/24 08/12/24 History potassium chloride 20 mEq/15 mL 20 meq PO DAILY 02/25/24 08/12/24 History oral liquid ziprasidone HCl 80 mg capsule 80 mg PO HS 02/25/24 08/12/24 History buspirone 30 mg tablet 30 mg PO BID 03/25/24 08/12/24 History empagliflozin 25 mg tablet 25 mg PO DAILY #90 tabs 05/29/24 08/12/24 Rx (Jardiance) glucagon 1 mg/0.2 mL subcutaneous 1 mg (0.2 mL) subcut ONCE #0.4 mL 05/29/24 08/12/24 Rx auto-injector (Gvoke HypoPen 2-Pack) glucose 4 gram chewable tablet 16 g (4 x 4 gram) PO Q15M PRN 05/29/24 08/12/24 Rx (Dex4 Glucose) hypoglycemia #60 tabs insulin glargine 100 unit/mL (3 35 unit (0.35 mL) subcut DAILY #45 05/29/24 08/12/24 Rx mL) subcutaneous pen (Lantus mL Solostar U-100 Insulin) insulin lispro 200 unit/mL (3 mL) 8 unit (0.04 mL) subcut TIDWMEAL 05/29/24 08/12/24 Rx subcutaneous pen (Humalog KwikPen #30 mL U-200 Insulin) metformin 500 mg tablet,extended 1,000 mg (2 x 500 mg) PO BID #360 05/29/24 08/12/24 Rx release 24 hr (Glucophage XR) tabs ostomy supplies (Skin Prep Wipes) #50 ea 05/29/24 08/12/24 Rx semaglutide 1 mg/dose (4 mg/3 mL) 1 mg (0.75 mL) subcut WEEKLY 90 05/29/24 08/12/24 Rx subcutaneous pen injector (Ozempic) days #9 mL Allergies Allergy/AdvReac Type Severity Reaction Status Date / Time Penicillins Allergy Mild Hives Verified 08/12/24 09:14 Exam Narrative: The patient's physical exam is essentially unchanged from prior examination on 07/15/2024. Specifically, patient demonstrates normal lung capacity, tidal volume and respiratory rate without wheezes, crackles, rales or rubs. Heart rate and rhythm are regular without murmurs, gallops or rubs. No JVD. Pulses 2+ globally without increasing peripheral edema. AAOx3 with no evidence of confus ion, intoxication or altered mental state, NC/AT without acute distress or altered consciousness. Speech, cognition, mood, insight and judgment at baseline and within normal limits. Assessment and Plan Assessment and plan (1) Lumbosacral spondylosis: Code(s): M47.817 - Spondylosis without myelopathy or radiculopathy, lumbosacral region Status: Acute Assessment and Plan: Proceed as planned with diagnostic/prognostic medial branch blocks of the bilateral L3, L4, L5 medial branches/dorsal ramus(#1) addressing the ipsilateral L4-5, L5-S1 facet joints under fluoroscopic guidance and with contrast control. (2) Dorsalgia of lumbar region: Code(s): M54.50 - Low back pain, unspecified Status: Acute (3) Chronic pain associated with significant psychosocial dysfunction: Code(s): G89.4 - Chronic pain syndrome Status: Acute
--- NOTE | 2024-08-19 12:45 | WPDHPUPDATE1 ---
History and Physical Update Update Date/Time: 08/19/24 12:45 History and Physical has been reviewed, including an updated exam of the patient. There are NO changes in the patient's condition. Risks, benefits, and alternatives have been discussed and questions answered. Patient agrees to proceed with procedure.
--- NOTE | 2024-08-19 12:46 | W.PM.PROC2 ---
Procedure Note - Detailed Date of Procedure 08/19/24 Pre-op Diagnosis spondylosis lumbosacral, chronic low back pain Post-op Diagnosis Same Procedure Performed Diagnostic bilateral Lumbar Medial Branch/Dorsal Ramus Blocks at L3, L4, L5 Treating the bilateral L4-5, L5-S1 Facet Joints Under Fluoroscopic Guidance and with Contrast Control. (4 levels blocked). Surgeon Dennis Suh MD Civil Engineering Draftsperson None. Anesthesia Local Description of Procedure INFORMED CONSENT: Risks, benefits and alternatives to the procedure were discussed in detail with the patient who expressed explicit understanding and consent to proceed. Patient was informed verbally and in written form regarding the risks associated with the procedure including the low risk of serious infection, bleeding/bruising, allergic reaction, nerve or organ injury, paralysis, procedural site pain or discomfort, worsening pain and/or mobility, failure to treat and/or disfigurement. The patient expressed explicit understanding and consent to proceed. All materials required for the procedure were available prior to procedure start. Site and side were marked prior to procedure and confirmed in the presence of the patient. PROCEDURE IN DETAIL: The patient was brought to the procedural suite and placed in the prone position. Patient was made comfortable with use of pillows under the head/chest, hips and ankles. Skin overlying the injection site on the affected side(s) was prepared broadly with ChloraPrep applicator and draped in a sterile manner. Aseptic technique was used throughout. The endplates of the vertebral bodies at the site(s) of interest were aligned in the AP view. Ipsilateral oblique angulation was utilized to optimize visualization of the intersection between the superior articulating process and transverse process at each target site. Local anesthesia was established by infiltration with approximately 5 mL of 1% lidocaine via a 1-1/2 inch 27-gauge needle. A 25-gauge 5.0 inch Quincke spinal needle was advanced until the needle tip contacted periosteum at the target site, right L3. Lateral view was utilized to confirm the appropriate placement of the needle tip just anterior to the facet line and superior to the pedicle. In the Lateral view, 0.25 mL of Omnipaque 300 contrast medium was injected after negative aspiration for CSF, blood or other bodily fluid, showing appropriate extra-articular spread of contrast without evidence of intravascular, foraminal or intrathecal placement. A 0.5 mL solution of 0.5% PF bupivacaine was injected after negative repeat aspiration. Appropriate spread of the injectate was confirmed with washout of previously injected contrast. No parasthesias were elicited. Needle was removed completely intact without difficulty. The same exact procedure was repeated for all remaining levels on the ipsilateral side, right L4, L5 medial branches/dorsal ramus, modified as necessary to accommodate for the new target location with identical findings and results and no evidence of complication. The same exact procedure was repeated for all remaining levels on the contralateral side, left L3, L4, L5 medial branches/dorsal ramus, modified as necessary to accommodate for the new target location with identical findings and results and no evidence of complication. Images were saved and documented in the patient chart. Patient's skin was cleaned and sterile bandage applied. The patient tolerated the procedure well. The patient was transported to the recovery area in stable condition where they were observed for an appropriate amount of time prior to discharge, without evidence of complication. Patient was instructed on the appropriate completion of a pain diary over the next 12-24 hours. The patient was instructed to avoid excessive activity for the next 48 hours, including climbing and frequent use of stairs. Showers only for 48 hours. They were instructed not to drive or operate heavy machinery for 24 hours. They are to monitor for severe headaches, fevers, chills, night sweats, erythema/swelling at the site or any other signs of infection, bleeding/bruising, bowel or bladder changes as well as new pain, weakness or numbness in the upper or lower extremity. Should they notice these changes, they are instructed to call our office immediately or report directly to the nearest Emergency Department if no answer or if after posted office hours. COMPLICATIONS: None COMMENTS: None CONTRAST WASTED: 28.5mL Omnipaque 300. Complications No immediate complications Condition Stable Disposition Same day [facility] Billing Surgery - Charge Forward: Surgery Billing
[2024-08-19 14:13] VITALS: BP 162/84; PULSE 102; RESP 22; TEMP 36.8; O2SAT 97
[2024-08-19 15:09] VITALS: BP 151/80; PULSE 112; RESP 20; O2SAT 95
[2024-08-19 15:14] VITALS: BP 143/74; PULSE 105; RESP 22; O2SAT 93
[2024-08-19] MEDS: BUPivacaine HCL 0.5% PF 30 ML VIAL INFILTRATE (15:16)
[2024-08-19 15:19] VITALS: BP 149/83; PULSE 104; RESP 22; O2SAT 94
[2024-08-19 15:26] VITALS: BP 135/71; PULSE 101; O2SAT 95
== END 2024-08-19 15:48 | disposition home or self-care (01) ==
PROVIDERS: PCP Emergency Medicine; Visit Provider Anesthesiology Pain Medicine
PROC: (CPT 64493; principal; 2024-08-19 14:45)
DX: M47.817 Spondylosis without myelopathy or radiculopathy, lumbosacral region (principal); G89.29 Other chronic pain; Z87.891 Personal history of nicotine dependence; F12.90 Cannabis use, unspecified, uncomplicated
CPT/HCPCS: 64493; 64494 ×2; 64495 ×2; 99199; Q9965

== ENCOUNTER 2024-08-31 22:10 | Emergency (ER) | payer MEDICARE, MEDICAID, SELFPAY ==
--- NOTE | ~2024-08-31 | XR_ITS ---
Left foot Technique: AP, oblique, and lateral views were obtained. Clinical History: Great toe wound Findings: No acute fracture or dislocation is seen. Osseous alignment is anatomic. Joint spaces are p reserved without erosive or degenerative change. Soft tissues are unremarkable. Impression: Unremarkable left foot radiographs. Reviewed, dictated and finalized at [facility]. Impression: Unremarkable left foot radiographs.
[2024-08-31 22:14] VITALS: PULSE 97; RESP 18; TEMP 35.9; O2SAT 97
--- OUTSIDE RECORDS SUMMARY | 2024-08-31 22:14 | XMS_ITS ---
Author Organization [facility] Address [address] [place] [address] Phone Care Team Providers Care Director Of Athletics Name Role Phone Marilee Vale MD Primary Care Provider [phone] Aravind Coelho MD Unavailable [facility] Service Episode Status:Identified (Enrolling) Start date:08/28/2024 Related program episode:Juan Chronic Condition Monitoring (Active) Continued Care and Services Coordination
--- OUTSIDE RECORDS SUMMARY | 2024-08-31 22:14 | XMS_ITS | Clinical Summary ---
Author Organization [facility] Address [address] [place] [address] Care Team Providers Care Tray Casting Machine Operator Name Role Phone Kymberly Vaughan MD Unavailable Marilee Vale MD Primary Care Provider + [phone] Allergies Active Allergy Reactions Criticality Noted Date [...] (two) times a day with meals Per [facility] pharmacy this medication has not been filled [...] 08/29/2020 Shortness of breath 08/26/2020 COPD exacerbation ([facility]) 08/26/2020 Bronchitis 08/26/2020 Asthma 08/26/2020 Depression 08/26/2020 Severe sepsis 08/26/2020 Right medial knee pain 07/26/2020 Sprain of medial collateral ligament of right kn ee 07/26/2020 Lumbar strain, initial encounter 04/13/2019 Hernia of anterior abdominal wall 11/23/2015 Overview (07/21/2016): Ventral hernia Cellulitis of lower extremity Acute on chronic diastolic congestive heart fail ure Morbid obesity with BMI of 50.0-59.9, adult ([facility]) Immunizations Immunization Administration Dates Next Due [...] often do you attend chur ch or congregational services? 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 Minority populations were underrepresented and children were not included. (Diabetes Care 31:8262-6504, 2008). The eAG is not equivalent to a fasting glucose. Blood specimen (specimen) 08/30/2020 3:36 AM CDT 08/30/2020 4:56 AM CDT Devendra Fulton MD LAB BLOOD ORD ERABLES Final Result [facility] [address] [facility] Department [place] [address] from Last 3 Months or Most Recently Relevant to Health Maintenance Insurance JAMILAH HARDIN [facility] [place] [address] [address] [place] [address] Advance Directives For more information, please contact: [phone] * Full Code (Latest Code Status on File) Date Activated Date Inactivated Comments 01/27/2021 1:54 PM 01/31/2021 4:21 PM * Full Code Date Activated Date Inactivated Comments 08/26/2020 8:05 PM 08/31/2020 6:34 PM * Full Code Date Activated Date Inactivated Comments 11/18/2019 9:22 AM 11/19/2019 10:32 PM Care Teams Tray Casting Machine Operator Relationship Specialty Start Date End Date Marilee Vale MD [address] [place] [address] PCP - General Emergency Medicine 07/01/23 Kymberly Vaughan MD Consulting Physician Sleep Medicine 11/19/19
--- OUTSIDE RECORDS SUMMARY | 2024-08-31 22:14 | XMS_ITS | Clinical Summary ---
Author Organization [facility] Address [address] [place] [address] Care Team Providers Care Mortgage Closer Name Role Phone Felicia Ramos PA-C Primary Care Provider + Source Comments [facility],non-owned Affiliates and Associated Physician Practices is amultiple site organization consisting of ambulatory clinics and hospital sitesin [place], [place], [place] and [place]. This disclosure is being madepursuant to the Care Everywhere program and may not contain all information available regarding this patient. 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
--- OUTSIDE RECORDS SUMMARY | 2024-08-31 22:14 | XMS_ITS | Clinical Summary ---
Author Organization [facility] Address [address] [place] [address] Phone Care Team Providers Care Manager Real Estate Name Role Phone Marilee Vale MD Primary Care Provider [phone] Aravind Coelho MD Unavailable Allergies Active Allergy Reactions Criticality Noted Date Comments Dog Fennel Allergy Skin Test Rash,Itching Low 06/28 Cats Penicillins Hives,Rash,Itching High 06/28/2024 Medications fluticasone (FLONASE) 50 MCG/ACT Suspension 1 [place] by Nasal route daily. Use in each [...] mg by mouth daily. Active Glucose Blood ([employer] Ultra Blue Test) Strip by In Vitro route. Use as directed Active triamcinolone (KENALOG) 0.1 % Cream Apply 2 times daily. Application Site: bottom of right foot twice daily (Description and Location) Active nystatin (MYCOSTATIN) 402316 UNIT/GM Cream Apply 3 times daily. Application Site: affected area (Description and Location) Active Glucagon (Gvoke HypoPen 2-Pack) 1 MG/0.2ML Solution Auto-injector by Subcutaneous route. Active Insulin Pen Needle (TRUEplus Pen Murphy) 31G X 5 MM Misc by Does [...] Type Department Care Team Description 07/01/2024 Telephone [facility] Endocr[facility]ology [facility] [address] [place] [address] Aravind Coelho MD Medication Management 06/28/2024 9:30 AM CDT Office Visit [facility] [address] [place] [address] Aravind Coelho MD Type 2 diabetes mellitus with diabetic polyneuropathy, with long-term current use of insulin (HCC) (Primary Dx); Insulin dose changed ([facility]); Class 3 severe obesity due to [...] 0.6 oz pur e alcohol) 2x year [facility] Utilities Answer Date Recorded In the past 12 months has [employer], [employer], or water [employer] threatened to shut off services in your home? Yes 08/28/2024 Hunger Vital Sign Answer Date Recorded Within the past 12 months, y ou worried that your food would run out before you got the money to buy more. Sometimes true Within the past 12 months, t he food you bought just didn't last and you didn't have money to get more. Sometimes true PRAPARE - Transportation Answer Date Re corded In the past 12 months, has l ack of transportation kept you from medical appointments or from getting medications? Yes 08/15 In the past 12 months, has l ack of transportation kept you from meetings, work, or from getting things needed for daily living? Yes 08/28/2024 Housing Stability Vital Sign Answer Hay e Recorded In the last 12 months, was t here a time when you were not able to pay the mortgage or rent on time? No 08/28/2024 In the past 12 months, how m any times have you moved where you were living? 0 08/28/2024 At any time in the past 12 m [facility], were you homeless or living in a senior care (including now)? No 08/28/2024 Sexually Active Control Partners Comments Not Currently [...] Colorectal Cancer Screening 2022 SARS-COV-2 Immunization ( - season) 2023 Influenza Immunization (Se[place] on Ended) 2024 03/12/2021, 01/28/2021, 04/21/2012 Diabetes: Hemoglobin A1c 12/29/2024 025, 08/30/2020 Diabetes: Foot Exam 06/28/2025 06/28/2024 Respiratory Syncytial Virus (RSV) Immunization (Adult) (1 - 1-dose 75+ series) 2052 Pneumococcal Immunization Combined Completed 03/14/2022 Human Papillomavirus (HPV) Immunization Aged Out No longer eligible b ased on patient's age to complete this topic Meningococcal Immunization (ACWY) Aged Out No longer [...] % Blood 06/28/2024 10:2 1 AM CDT us Aravind Coelho MD POINT OF CARE TESTING (MANUAL) F inal Result from Last 3 Months Insurance MEDICAID [place] Care Teams Manager Real Estate Relationship Specialty Start Date End Date Marilee Vale MD [facility] [place] [address] PCP - General Family Medicine 11/06/23 Aravind Coelho MD [address] [id number] Consulting Physician Endocrinology 06/28/24
--- OUTSIDE RECORDS SUMMARY | 2024-08-31 22:14 | XMS_ITS | Data Portability ---
Author Organization [place] [facility] [employer], Main Office Address [address] [place] [address] Assessment Encounter Date Assessment Date Assessment LastModified by Organization Details LastModified Time 05/25/2023 05/25/2023 Assessment: Ex nicotine smoke: 1.5 ppd 1730-4538 = 28 years = 42 pack years [...] We will obtain old sleep studies from [facility]. Atrovent nasal spray 0.06% not formulary. Continue [...] 01/11/2024 Assessment: Ex nicotine smoke: 1.5 ppd 3890-7530 = 28 years = 42 pack years [...] We will obtain old sleep studies from [facility]. Atrovent nasal spray 0.06% not formulary. Continue [...] This note is dictated and transcribed by [employer]. Butcher Fish variances may occur. Despite proofreading, typographical errors may occur. Occasional wrong-word or '[id number]' substitutions may have occurred due to the inherent limitations of voice recording. Read the chart carefully and recognize, using context, where substitutions have occurred. [email or web address] Not available 01/16/2024 13:41:06 04/11/2024 04/11/2024 Assessment: Ex nicotine smoke: 1.5 ppd 7258-2038 = 28 years = 42 pack years [...] We will obtain old sleep studies from [facility]. Atrovent nasal spray 0.06% not formulary. Continue [...] Details Appointments Establish ed Patient 15 2024 01:00P M Jorge Cohen DPM Not available Not available Not available Any 15 2024 01:30P M Louie Jacinto MD Not available Not available Not available Lab None recorded. Referral None recorded. Procedures None recorded. Surgeries None recorded. Imaging None recorded. Medication Orders albuterol sulfate HFA 90 mcg/actua tion aerosol inhaler 2023 [facility] #[id number], [address] , [place], [place], [id number], 04/11/2024 15:06:52 Advair HFA 115 mcg-21 mcg/actua tion aerosol inhaler 2023 [facility] #[id number], [address], [place], [place], [id number], 04/11/2024 15:15:40 azelastin e 137 mcg (0.1 %) nasal spray 2023 [facility] #[id number], [address], [place], [place], [id number], 04/11/2024 15:08:05 fluticaso ne propionat e 50 mcg/actua tion nasal spray,misa pension 2023 [facility] #[id number], [address], [place], [place], [id number], 04/11/2024 15:08:04 albuterol sulfate HFA 90 mcg/actua tion aerosol inhaler 2023 024 [facility] #[id number], [address], [place], [place], [id number], 01/11/2024 11:56:35 Symbicort 160 mcg-4.5 mcg/actua tion HFA aerosol inhaler 2023 024 [facility] #85744, [address], [place], [place], [id number], 01/11/2024 11:56:34 azelastin e 137 mcg (0.1 %) nasal spray 2023 024 [facility] #[id number], [address], [place], [place], [id number], 01/11/2024 11:56:36 fluticaso ne propionat e 50 mcg/actua tion nasal spray,[facility] 2023 024 [facility] #54290, [address], [place], [place], [id number], 01/11/2024 11:56:36 albuterol sulfate HFA 90 mcg/actua tion aerosol inhaler 2023 024 [facility] #30789, [address], [place], [place], [id number], 05/25/2023 13:21:34 Symbicort 160 mcg-4.5 mcg/actua tion HFA aerosol inhaler 2023 [facility] #[id number], [address], [place], [place], [id number], 05/25/2023 13:21:32 azelastin e 137 mcg (0.1 %) nasal spray 2023 [facility] #70913, [address], [place], [place], [id number], 05/25/2023 13:21:33 fluticaso ne propionat e 50 mcg/actua tion nasal spray,[facility] pension 2023 [facility] #57549, [address], [place], [place], [id number], 05/25/2023 13:21:33 Patient TargetsNo targets recorded. Patient Instructions Encounter Date Encounter Id Patient Instructions Last Modified By Organization Details Last Modified Time 05/25/2023 [id number] complete PFT w/ post bronchodilator spirometry* - no auth required [email or web address] Not available 08/23/2023 09:01:52 01/11/2024 [id number] complete PFT w/ post bronchodilator spirometry* - Please call patient to schedule. NPAN [id number] per payor website. [email or web address] Not available 02/22/2024 12:19:24 04/11/2024 [id number] complete PFT w/ post bronchodilator spirometry* - Please call patient to schedule. NPAN [id number] per payor website. Not available 04/11/2024 15:06:45 Reason for Referral None Reported. Results Created Date Observation Date Name Description Value Unit Range Abnormal Flag Note LastModifiedBy Organization Detail LastModifiedTime 03/26/20 24 01/23/2024 compl ete PFT w/ post [place] hodil ator alma metry * No observ ation record ed. [facility] [address], [place], [address], 03/26/2024 17:37:15 Result Notes None recorded. Problems Name Problem SNOMED Code Status Onset Date Resolution Date Notes Provider Name and Address Organization Details Recorded Time Plantar fasciitis of right foot 4415948601671 9101 Active 2021 Not Available [facility] 3 19:28:56 Morbid obesity 100165560 Active 2020 Not Available [facility] 3 19:28:56 Peroneal tendinitis of right lower limb 9802006983089 09 Active 2021 Not Available [facility] 3 19:28:57 Osteoarthr itis of right knee joint 3552234927607 00 Active 2020 Not Available [facility] 3 19:28:57 Diabetes mellitus 16294952 Active 2021 Not Available [facility] 3 19:28:57 Gout 92744180 Active 2021 Not Available [facility] 3 19:28:57 Posterior rhinorrhea 24707274 Active 2022 Louie Jacinto MD [address], [place], [address] , [employer] [facility] [employer] 3 12:13:53 Tinea pedis 0609861 Active 2022 Jorge Cohen DPM [address], [address], [place], [address] , [employer] [facility] [employer] 3 15:25:55 Asthma-chr onic obstructiv e pulmonary disease overlap syndrome 1495662204762 9107 Active 2023 Louie Jacinto MD [address], [address], [place], [address] , [employer] [facility] [employer] 4 14:55:24 Abscess of toe of right foot 1960801646347 9109 Active 2024 Jorge Cohen DPM [address], [address], [place], [address] , [facility] [employer] 5 16:35:44 Cellulitis of toe of right foot Active 2024 Jorge Cohen DPM [address], [address], [place], [address] , [facility] [employer] [facility] 5 16:35:55 Paronychia of toe of right foot 4792656257649 9102 Active 2024 Jorge Cohen DPM [address], [address], [place], [address] , [employer] [facility] [employer] [facility] 5 16:36:03 Pain of toe of right foot 8126885720214 01 Active 2024 Jorge Cohen DPM [address], [address], [place], [address] , [employer] [facility] [employer] [facility] 5 16:36:16 Diabetic skin disorder Active 2024 Jorge Cohen DPM [address], [address], [place], [address] , [employer] [facility] [employer] [facility] 16:37:54 Notes:Medical History: Bipol ar depression/Anxiety Bilateral hearing loss COVID infections 03/2020, 10/2021 Rhinitis with postnasal drip to multiple environmental allergens IgE 825 IU/mL Eosinophils 160/uL AAT PiMM 155 mg% Mod ACO Granulomatous lung disease Obesity with MORGAN and mild restrictive airflow impairment on AVAPS for chronic hypercarbic respiratory failure c/o [employer] Severe LVE Mild LAE Mild MR/NH/TR PASP 37 mmHg Hypertension EF 50% Hyperlipidemia T2DM with neuropathy Atrial fibrillation HFpEF since 04/2021 c/o Dr. Edge YAMILE Umbilical hernia Hepatic steatosis Cholelithiasis Vit D deficiency Thoracic DDD Dextroscoliosis Gout Procedure History: T&A 1990 Left inguinal herniorrhaphy 2016 Problem Notes None recorded. Procedures Surgical History Date Name Laterality Status Provider Name and Address Organization Details Recorded Time 08/30/19 25 Abscess Drainage active Jorge Cohen DPM [address], [address], [place], [address], [employer] [facility] [employer] [facility] 08/29/2024 16:35:29 01/16/20 24 Nail Debridement completed Jorge Cohen DPM [address], [address], [place], [address], [place] [facility] 01/16/2024 13:39:40 Tonsillectomy completed Not Available [facility] 06/15/2022 19:28:19 Hernia Repair completed Not Available [facility] 06/15/2022 19:28:19 Cardiac Cath completed Not Available [facility] [place] 06/15/2022 19:28:19 Cardiac Cath completed Not Available [facility] [place] 06/15/2022 19:28:19 Imaging Results Imaging Date Name Status LastModified by Organization Details LastModified Time 01/23/2024 complete PFT w/ post bronchodilator spirometry* completed [facility] [address], [place], [address], 03/26/2024 17:37:15 Procedure Notes None recorded. Medical Equipment None Reported. Allergies Allergen ID Allergen Name Allergen Category Reaction Reaction Severity Criticality Documentation Date Start Date Code Code System Note Provider Name and Address Organization Details Recorded Time 96232 Product containin g penicilli n (product) medicatio n Not available Not available Not available 06/15/2022 95437 8001 SNOMED Not Available [facility] 19:30:00 Medications Name Sig Start Date Stop [...] CAPSULE BY MOUTH TWICE DAILY WITH FOOD 08/29 completed Not Available Not Available Not Available atorvastati n 20 mg tablet TAKE [...] MOUTH EVERY 6 HOURS FOR 1 WEEK 08/29 completed Not Available Not Available Not Available albuterol sulfate 2.5 mg/3 mL (0.083 [...] (0.1 %) nasal spray USE 2 SPRAYS NASALLY TWICE DAILY active Not Available Not Available [...] sulfate HFA 90 mcg/actuati on aerosol inhaler INHALE 1 PUFF BY MOUTH EVERY 4 HOURS NEEDED active Not Available Not Available No t Available colchicine 0.6 mg tablet TAKE 1 TAB [...] propionate 50 mcg/actuati on nasal spray,suspe nsion USE 1 SPRAY IN EACH NOSTRIL NASALLY EVERY DAY active Not Available Not Available No t Available metformin ER 500 mg tablet,exte nded release [...] Not Available Not Available No t Available [id number]|2024-08-31 22:15:00|2024-08-31 22:14:00|XMS_ITS|SERG MCDONALD|External Medical Summaries|[id number]|" CONTINUITY OF CARE DOCUMENT Created on: August 31, 2024 Jerzy Leahy : 1975 Sex: Male Author Name owen weaver Address Unknown Organization [facility] Address [address] [place] [address] Phone [phone] Care Team Providers Care Director Of Exhibits Name Role Phone Minesh OLGUIN, José Manuel Rose Unavailable [phone] YASH SALEH Unavailable YASH SALEH Unavailable PROBLEMS Condition Status Date Provider Notes Preoperative [...] - Ivan Ruvalcaba MD DYSPNEA ON EXERTION;NEG ALMA, LIKELY DUE TO WEIGHT active José Manuel Edge MD HTN ESSENTIAL;LABS PER PRIMARY, NEG DUPLEX active Ivan Ruvalcaba MD DVT;NEG VD completed - José Manuel Edge MD CHF-08/26 NUC SM REV INF DEF EF 45 active ? Henny Yañez PNEUMONIA;WILL FU CXR active Ivan Ruvalcaba MD SINUS TACHYCARDIA active Ivan Ruvalcaba MD CAD - Cath 2020 no CAD active Henny moise ANGINA PECTORIS;WILL TRY ECP active José Manuel coffman MD DIARRHEA, CHRONIC;WILL CHECK GB completed - José Manuel Edge MD Family History of CVA or Stroke: completed - Aminatatito Scottmipamela [employer] Preop exam active [facility] Edema active [facility] ENCOUNTERS Date Type Provider Location Encounter Diag nosis - In-person encounter Office Visit José Manuel Edge MD [facility] - In-person encounter Office Visit José Manuel Edge MD [place] [facility] - In-person encounter Office Visit José Manuel Edge MD [facility] - In-person encounter Office Visit José Manuel Edge MD [facility] Family History of CVA or Stroke: - In-person encounter Office Visit José Manuel Edge MD [place] [facility] CAD - Cath 2020 no CAD - In-person encounter Office Visit José Manuel Edge MD [place] [facility] - In-person encounter Office Visit José Manuel Edge MD [place] [facility] CMYOPATHY-08/26 ECHO EF 45 -- EF 50% 07/2009DYSPNEA ON EXERTION;NEG ALMA, LIKELY DUE TO WEIGHTDVT;NEG VDCAD - Cath 2020 no CADANGINA PECTORIS;WILL TRY ECPDIARRHEA, CHRONIC;WILL CHECK GBPreop examEdema - In-person encounter Office Visit José Manuel Edge MD [place] [facility] - In-person encounter Office Visit José Manuel Edge MD [place] [facility] - In-person encounter Office Visit Ivan Ruvalcaba MD [place] [facility] HTN- 07/24 ECHO UNCHANGED 05/26 ECHO EF 46 RSVP 30 LVHCHEST PAIN-08/23 NUC BORDERLINEOBESITY;WILL CONSIDER MEDIFASTCMYOPATHY-08/26 ECHO EF 45 -- EF 50% 07/2009LEG PAIN-07/25 MICHAEL DOP NEGHTN ESSENTIAL-10/23 LATA ANGIO NEGDYSPNEA ON EXERTION;NEG ALMA, LIKELY DUE TO WEIGHTHTN ESSENTIAL;LABS PER PRIMARY, NEG DUPLEXCHF-08/26 NUC SM REV INF DEF EF 45PNEUMONIA;WILL FU CXRSINUS TACHYCARDIACAD - Cath 2020 no CADANGINA PECTORIS;WILL TRY ECP - In-person encounter Office Visit José Manuel Edge MD [place] [facility] LEG PAIN-07/25 MICHAEL DOP NEG - In-person encounter Office Visit Ivan Ruvalcaba MD [place] [facility] - In-person encounter Office Visit José Manuel Edge MD [place] [facility] RENAL FAILURE CHRONIC-10/23 LATA US NEG VITAL SIGNS Date Observation Value Provider Body Mass Index (Ratio) 52.21 kg/m2 Manjeet am Taco blood pressure, diastolic 73 mm[Hg] Li nkLogic blood pressure, systolic 138 mm[Hg] Deena kLogic blood pressure, cuff size large Ja rret blood pressure, diastolic 73 mm[Hg] Ja rret blood pressure, systolic 138 mm[Hg] Jar ret pulse rate 83 /min Artem respiratory rate E&M 12 /min Artem oxygen saturation, oximetry 95 % Artem weight E&M 385 [lb_av] Artem y height E&M 72 [in_i] Artem y Body Mass Index (Ratio) 51.80 kg/m2 Baldev Smithgideon blood pressure, cuff size regular yesenia Duarte blood pressure, diastolic 74 mm[Hg] yesenia Duarte blood pressure, systolic 144 mm[Hg] She astrid Duarte pulse rate 96 /min Hansa Duarte respiratory rate E&M 20 /min Hansa Duarte oxygen saturation, oximetry 96 % Hansa Duarte weight E&M 382 [lb_av] Hansa Duarte height E&M 72 [in_i] Hansa Duarte Body Mass Index (Ratio) 54.79 kg/m2 Baldev Hancockteddy blood pressure, cuff size large Ke rri Chalo blood pressure, diastolic 100 mm[Hg] Ke rri Dai blood pressure, systolic 184 mm[Hg] Chani Isabel Inhaled O2 2.5 L/min Ruth Mahan [facility] oxygen saturation, oximetry 98 % Ruth Lala respiratory rate E&M 18 /min Ruth lomeli pulse rate 100 /min Ruth Mahan [facility] weight E&M 404 [lb_av] Ruth Negrito [facility] height E&M 72 [in_i] Ruth Mahan [facility] Body Mass Index (Ratio) 57.91 kg/m2 Laureen Yañez blood pressure, diastolic 105 mm[Hg] Li nkLogcarmela blood pressure, systolic 160 mm[Hg] Deena og blood pressure, cuff size large Hilda Paez blood pressure, diastolic 105 mm[Hg] Hilda Paez blood pressure, systolic 160 mm[Hg] Elsa Paez oxygen saturation, oximetry 91 % Devin Paez pulse rate 111 /min Devin eubanks respiratory rate E&M 20 /min Shaji Paez weight E&M 427 [lb_av] Devin eubanks height E&M 72 [in_i] Devin eubanks Body Mass Index (Ratio) 55.46 kg/m2 Laureen buenrostro Pari blood pressure, diastolic 98 mm[Hg] [facility], systolic 156 mm[Hg] Deena [facility] blood pressure, cuff size large Gunnar lemusi Dai blood pressure, diastolic 98 mm[Hg] Ke rri Chalo blood pressure, systolic 156 mm[Hg] Chani Isabel oxygen saturation, oximetry 93 % Ruth Isabel respiratory rate E&M 16 /min Ruth lomeli pulse rate 104 /min Ruth Negrito lder weight E&M 409 [lb_av] Ruth Lyndsaye lder height E&M 72 [in_i] Ruth Lyndsaye lder blood pressure, diastolic 96 mm[Hg] Ke rri Gruenenfelder blood pressure, systolic 132 mm[Hg] Chani ri Chalo pulse rate 95 /min Ruth Negrito lder oxygen saturation, oximetry 97 % Ruth Isabel respiratory rate E&M 18 /min Ruth cabezasadolfoyoel Body Mass Index (Ratio) 46.92 kg/m2 Lizz Isabel weight E&M 346 [lb_av] Ruth Mahan lder height E&M 72 [in_i] Ruth Mahan lder pulse rate #2 89 Masood Manacop blood pressure, josé tolic, second observation 83 [...] pressure, syst olic, second observation 149 mm[Hg] Masood Man[place] oxygen saturation, oximetry 96 [...] oximetry 96 % Masood [place] pulse rate 98 /min Masood [place] blood pressure, diastolic 88 mm[Hg] Mónica seph [place] blood pressure, systolic 132 mm[Hg] Deni eph [place] pulse rate #2 92 Joaquin solorio blood pressure, josé tolic, second observation 90 mm[Hg] Joaquin Gardnerherson blood pressure, syst olic, second observation 150 mm[Hg] Joaquin Gardnerherson oxygen saturation, oximetry 95 % Joaquin Brandt pulse rate 95 /min Joaquin Brandt blood pressure, diastolic 89 mm[Hg] Ra ronnie Brandt blood pressure, systolic 135 mm[Hg] Mateo mccarty Brandt pulse rate #2 88 Joaquin Baumann lyndsey blood pressure, josé tolic, second observation 88 mm[Hg] Joaquin Brandt blood pressure, syst olic, second observation 133 mm[Hg] Joaquinnila Brandt oxygen saturation, oximetry 95 % Joaquin Brandt pulse rate 93 /min Joaquin Brandt blood pressure, diastolic 90 mm[Hg] Ra shaunanila Brandt blood pressure, systolic 140 mm[Hg] Mateo mccarty Brandt blood pressure, diastolic, left arm 77 mm [Hg] [facility] blood pressure, systolic, left arm 119 mm [Hg] [facility] blood pressure, diastolic, right arm 80 m m[Hg] [facility] blood pressure, systolic, right arm 120 m m[Hg] [facility] blood pressure, diastolic 77 mm[Hg] Baer [place] blood pressure, systolic 119 mm[Hg] [facility] pulse rate 86 /min [facility] oxygen saturation, oximetry 94 % [facility] respiratory rate E&M 16 /min [facility] weight E&M 293 [lb_av] [facility] blood pressure, diastolic, left arm 102 [...] Garcia oxygen saturation, oximetry 98 % Nereyda Jose respiratory rate E&M 18 /min Nereyda terry weight E&M 295 [lb_av] Nereyda Jose pulse rate #2 95 Joaquin McPherso n [...] Brandt blood pressure, diastolic 99 mm[Hg] Ra shaunay Brandt blood pressure, systolic 127 mm[Hg] Ran [...] pressure, syst olic, second observation 131 mm[Hg] Joauqin Brandt oxygen saturation, oximetry 96 % Joaquin Brandt pulse rate 80 /min Joaquin Brandt blood pressure, diastolic 84 mm[Hg] Ra ndy Brandt blood pressure, systolic 140 mm[Hg] Ran dy Brandt pulse rate #2 77 Joaquin McPherso n blood pressure, josé tolic, second observation 85 mm[Hg] Joaquin Brandt blood pressure, syst olic, second observation 128 mm[Hg] Joaquin Brandt oxygen saturation, oximetry 94 % Joaquin Brandt pulse rate 91 /min Joaquin Brandt blood pressure, diastolic 83 mm[Hg] Ra ronnie Baumannson blood pressure, systolic 117 mm[Hg] Ran lul GardnerBrandt pulse rate #2 100 Joaquin Baumannso n blood pressure, josé tolic, second observation 85 mm[Hg] Joaquin Brandt blood pressure, syst olic, second observation 125 mm[Hg] Joaquin Brandt oxygen saturation, oximetry 94 % Joaquin Brandt pulse rate 107 /min Joaquin Brandt blood pressure, diastolic 80 mm[Hg] Ra shaunay Brandt blood pressure, systolic 114 mm[Hg] Ran lul Brandt pulse rate #2 98 Joaquinnila Baumannso n blood pressure, josé tolic, second observation 78 mm[Hg] Joaquin Brandt blood pressure, syst olic, second observation 139 mm[Hg] Joaquin Brandt oxygen saturation, oximetry 95 % Joaquin Brandt pulse rate 88 /min Joaquin Brandt blood pressure, diastolic 63 mm[Hg] Ra shaunay Brandt blood pressure, systolic 128 mm[Hg] Ran lul Brandt pulse rate #2 109 Jennifer Stalling s blood pressure, josé tolic, second observation 90 mm[Hg] Jennifer Maite blood pressure, syst olic, second observation 143 mm[Hg] Jennifer Maite oxygen saturation, oximetry 96 % Jennifer Maite pulse rate 85 /min Jennifer [place] blood pressure, diastolic 60 mm[Hg] Be y [place] blood pressure, systolic 128 mm[Hg] Bet ty Maite pulse rate #2 80 Jennifer Stalling s blood pressure, josé tolic, second observation 90 mm[Hg] Jennifer Maite blood pressure, syst olic, second observation 143 mm[Hg] Jennifer Maite oxygen saturation, oximetry 96 % Jennifer [place] pulse rate 93 /min Jennifer [place] blood pressure, diastolic 86 mm[Hg] Be tty [place] blood pressure, systolic 129 mm[Hg] Bet ty Maite pulse rate #2 88 [facility], josé tolic, second observation 84 mm[Hg] Jennifer Maite blood pressure, syst olic, second observation 134 mm[Hg] Jennifer Maite oxygen saturation, oximetry 95 % [facility] pulse rate 100 /min Jennifer [place] blood pressure, diastolic 82 mm[Hg] Be y Maite blood pressure, systolic 124 mm[Hg] [facility] pulse rate #2 97 Joaquin McPherso [...] Brandt blood pressure, diastolic 75 mm[Hg] Ra shaunay Brandt blood pressure, systolic 130 mm[Hg] Ran dy Brandt pulse rate #2 99 Joaquin McPherso n blood pressure, josé tolic, second observation 81 mm[Hg] Joaquin Brandt blood pressure, syst olic, second observation 141 mm[Hg] Joaquin Brandt oxygen saturation, oximetry 96 % Joaquin Brandt pulse rate 100 /min Joaquin Brandt blood pressure, diastolic 90 mm[Hg] Ra shaunay Brandt blood pressure, systolic 142 mm[Hg] Ran lul Brandt pulse rate #2 94 Joaquin Kendraherso n blood pressure, josé tolic, second observation 78 mm[Hg] Joaquin Brandt blood pressure, syst olic, second observation 124 mm[Hg] Joaquin Brandt oxygen saturation, oximetry 96 % Joaquin Brandt pulse rate 94 /min Joaquin Brandt blood pressure, diastolic 78 mm[Hg] Ra shaunay Brandt blood pressure, systolic 124 mm[Hg] Ran dy Brandt blood pressure, diastolic, left arm 73 [...] catherine RN weight E&M 319 [lb_av] Chalino Castanedaeloy ANTOINE blood pressure, diastolic, left arm 82 mm [Hg] Chalino Melendez RN blood pressure, systolic, left arm 106 mm [Hg] Chalino Melendez RN blood pressure, diastolic, right arm 81 m m[Hg] Chalino Melendez RN blood pressure, systolic, right arm 124 m m[Hg] Chalino Melendez RN blood pressure, diastolic 82 mm[Hg] Alfred Melendez RN blood pressure, systolic 106 mm[Hg] Chalino Melendez RN pulse rate 126 /min Chalino Melendez RN oxygen saturation, oximetry 95 % Chalino Melendez RN respiratory rate E&M 20 /min Chalino catherine RN weight E&M 312 [lb_av] Chalino Melendez RN blood pressure, diastolic 87 mm[Hg] Alfred Melendez RN blood pressure, systolic 145 mm[Hg] Chalino Melendez RN pulse rate 104 /min Chalino Melendez RN oxygen saturation, oximetry 97 % Chalino Melendez RN respiratory rate E&M [...] LinkLogic 4.0 - 6.0 nitrate usage None [facility] nitrate usage None [facility] nitrate usage None [facility] nitrate usage None [facility] nitrate usage None [facility] nitrate usage None [facility] nitrate usage none [facility] nitrate usage none [facility] nitrate [facility] none [facility] nitrate usage none [facility] nitrate usage none [facility] nitrate usage none [facility] nitrate usage none [facility] nitrate usage none [facility] nitrate usage none [facility] nitrate usage none [facility] nitrate usage none [facility] nitrate usage none [facility] usage none [facility] usage none [facility] usage none [facility] usage none [facility] usage none [facility] nitrate usage none [facility] usage none [facility] nitrate usage none [facility] nitrate usage none [facility] nitrate usage none [facility] usage none [facility] none [facility] nitrate usage none Joaquin Brandt nitrate usage none Joaquin Brandt nitrate usage 0 Jennifer Maite nitrate usage none Joaquin Brandt nitrate usage none Joaquin Brandt nitrate usage none Joaquin Brandt nitrate usage none Joaquin Brandt nitrate usage none Joaquin Brandt anion gap, serum 12.2 Darryl Sterling globulins, serum, total 3.8 g/dL Darryl Sterling estimated glomerular filtration rate >60 Darryl Sterling alanine aminotransferase (SGPT), serum 59 1/L Darryl Chu
--- OUTSIDE RECORDS SUMMARY | 2024-08-31 22:14 | XMS_ITS | Referral Summary ---
Author Organization [facility] Address [address] [place] [address] Care Team Providers Care Rehabilitation Caseworker Name Role Phone Kymberly Vaughan MD Unavailable Marilee Vale MD Primary Care Provider + [phone] Allergies Active Allergy Reactions Criticality Noted Date [...] (two) times a day with meals Per [facility] this medication has not been filled [...] 08/29/2020 Shortness of breath 08/26/2020 COPD exacerbation ([facility]) 08/26/2020 Bronchitis 08/26/2020 Asthma 08/26/2020 Depression 08/26/2020 Severe sepsis 08/26/2020 Right medial knee pain 07/26/2020 Sprain of medial collateral ligament of right kn ee 07/26/2020 Lumbar strain, initial encounter 04/13/2019 Hernia of anterior abdominal wall 11/23/2015 Overview (07/21/2016): Ventral hernia Cellulitis of lower extremity Acute on chronic diastolic congestive heart fail ure Morbid obesity with BMI of 50.0-59.9, adult ([facility]) Immunizations Immunization Administration Dates Next Due Influenza, [...] often do you attend chur ch or jain services? 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 Gender Identity Not on file Sexual Orientation [...] ORDERABLES Final Resu lt Performing Organization Address City/[facility] Co de Phone Number [facility] [address] Department [place] [address] * (ABNORMAL) Hemoglobin A1c (08/30/2020 3:36 AM CDT) Hgb A1C 7.4(H) 4.0 - 5.6 % [facility] Estimated Average Glucose 166 mg/dL [facility] Comment: The ADA recommends reporting an estimated Average Glucose (eAG) with all Hemoglobin A1c results using the equation derived from a study of 507 normal and diabetic adults. Minority populations were underrepresented and children were not included. (Diabetes Care 31:0792-1033, 2008). The eAG is not equivalent to a fasting glucose. Blood specimen (specimen) 08/30/2020 3:36 AM CDT 08/30/2020 4:56 AM CDT Devendra Fulton MD LAB BLOOD ORD ERABLES Final Result [facility] [address] [facility] Department [place] [address] from Last 3 Months or Most Recently Relevant to Health Maintenance [place] [address] [place] [address] PLAN MEDICARE Advance Directives For more information, please contact: [phone] * Full Code (Latest Code Status on File) Date Activated Date Inactivated Comments 01/27/2021 1:54 PM 01/31/2021 4:21 PM * Full Code Date Activated Date Inactivated Comments 08/26/2020 8:05 PM 08/31/2020 6:34 PM * Full Code Date Activated Date Inactivated Comments 11/18/2019 9:22 AM 11/19/2019 10:32 PM Care Teams Rehabilitation Caseworker Relationship Specialty Start Date End Date Marilee Vale MD [address] [place] [id number] PCP - General Emergency Medicine 07/01/23 Kymberly Vaughan MD Consulting Physician Sleep Medicine 11/19/19
--- OUTSIDE RECORDS SUMMARY | 2024-08-31 22:14 | XMS_ITS ---
Author Organization [facility] Address [address] [place] [address] Phone Care Team Providers Care Keno Clerk Name Role Phone Marilee Vale MD Primary Care Provider Aravind Coelho MD Unavailable Juan Chronic Condition Monitoring Status:Enrolled (Active) Start date:08/28/2024 Enrollment date:08/28/2024 Related social drivers of health:Intimate Partner Violence, Social Connections, Alcohol Use, Financial Resource Strain, Depression, Stress, Physical Activity, Food Insecurity, Transportation Needs, Housing Stability, Utilities [facility] Continued Care and Services Coordination
--- OUTSIDE RECORDS SUMMARY | 2024-08-31 22:15 | XMS_ITS | Patient Health Record ---
Author Organization [facility] Address [address] [place] [address] Care Team Providers Care Trauma Therapist Name Role Phone Brittonervin Ray Primary Care Provider Allergies Allergen (clinical drug ingredient) Drug/Non Drug Allergy documented on EMR Reaction Allergy Type Onset Date Status Penicillin Unknown Drug Allergy Active Reason For Referral No Information Medications Medication SIG (Take, Route, Frequency, Duration) Notes Start Date End Date Status Furosemide 40 MG 1 tablet Orally Once a day for 30 day(s) Active Carvedilol 12.5 MG 1 tablet with food Orally Twice a day for 30 day(s) Active Losartan Potassium 25 MG 1 tablet Orally Once a day for 30 day(s) Active busPIRone HCl 30 MG 1 tablet Orally Twic e a day for 30 days Active Depakote ER 500 MG 1 tablet Orally Once a day for 30 day(s) Active buPROPion HCl ER (XL) 300 MG 1 tablet in the morning Orally Once a day for 30 days Active traZODone HCl 50 MG 1 tablet at bedtime as needed Orally Once a day for 30 days Active Albuterol Sulfate HFA 108 (90 Base) MCG/ACT 1 puff as needed Inhalation every 4 hrs Active metOLazone 10 MG 1 tablet Orally Once a day for 30 day(s) Not-Taking metFORMIN HCl 500 MG 1 tablet with a sara l Orally three times daily Active Jardiance Active Xtampza ER 9 MG 1 tablet Orally twic e a day Active BuSpar 10 MG 1 tablet Orally Twic e a day Not-Taking Social History Sex Assigned At : Social History Observation Description Sex Assigned At Male Problems Problem Type SNOMED Code ICD Code Onset Dates Problem Status W/U Status Risk Notes Problem Major depression (F32.9) Active confirmed Plan Of Treatment No Information Insurance Providers Payer Name Payer Address Payer Phone Subscriber Number Group Number Insured Name Patient Relationship to Insured Coverage Start Date Coverage End Date [facility] Family Health Plan [address] [employer] [facility] [address] [place] [address] [id number] 2 Dmitri, Jerzy Self - patient is the insured 1 [facility] Telehealth [address] [address] [place] [address] [id number] 2 Jerzy Rizvi Self - patient is the insured 1 Medical (General) History Medical History History ICD Code CHF Diabetes COPD Asthma Chronic Back pain Surgical History Surgery Date(Month/Year) Tonsilectomy Hernia repair Cardiac Cath Injections in back Hospitalization History Reason Date(Month/Year) [facility] [place] for left ear in fection 06/06/2022 [facility] for breathing issues Feb 2022 [facility] left leg swollen and infected. Jan 2022 COVID 10/2021 [facility] for gout in rig ht foot May 2021 [facility] [place] Feb 2021
--- OUTSIDE RECORDS SUMMARY | 2024-08-31 22:15 | XMS_ITS | Clinical Summary ---
Author Organization [facility] [address] Address [address] [place] [address] Care Team Providers Care Drafter Cartographic Name Role Phone Unavailable Primary Care Provider Unavailabl e Medications aspirin (MICHELLE CHEWABLE) 81 mg Tablet, ChewableIndications :Hyperlipidemia, unspecified hyperlipidemia type Take 1 Tablet (81 mg) by mouth daily. 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
--- OUTSIDE RECORDS SUMMARY | 2024-08-31 22:15 | XMS_ITS | Continuity of Care Document ---
Author Organization [facility] Address [address] [place] [address] [place] [address] Phone Care Team Providers Care Joint Runner Name Role Phone Alfa Jolly MD Unavailable [...] PREV VISIT, NEW, AGE 18-39 OFFICE/OUTPATIENT VISIT, [facility] Advance Directives Directive Yes / No Effective Date File Name No Information Encounters Encounter Description Practice Location Reason(s) For Visit Diagnoses Date Provider Providers Copied on Encounter PREV VISIT, NEW, AGE 18-39 [facility], [address] [place], [place], [id number], [place] tel:[phone] [facility] PHysical (chief complaint) Encounter for general adult medical exam w abnormal findingsEssential (primary) hypertensionCardiom yopathyAsthma [address] [facility] [address], [place], [place], [id number] , [place]. tel:[phone] Referring Provider: Georgette Trinh [place], [place], [id number]. tel:[phone] Family History Family Member Type Diagnosis Age [...] ANNIE CERNA (related to Cardiomyopathy) ordered Referral Ordered: CHEST X-RAY PA/LAT TWO-VIEWS ordered Referral Ordered: CT ABDOMEN&PELVIS W/CONTRAST ordered Referral Referred To: ANNIE CERNA [address] [place], [place], [phone] Ordered: Referrals: ANNIE CERNA. Evaluate and treat ordered History Of Present Illness Encounter Date [...] Mental Status Date Cognitive Assessment Orientation - [place] ed to time, place, person, situation.
[2024-08-31 23:19] VITALS: BP 137/77; PULSE 97; RESP 18; TEMP 36.9; O2SAT 95
[2024-08-31 23:21] VITALS: O2SAT 97
--- NOTE | 2024-08-31 23:27 | ED.GENADULT ---
HPI - General Adult General Chief complaint: Unspecified <Cristine Owens PA-C - Last Filed: 09/02/24 11:21> Stated complaint: R toe injury <LIVIA Wang Last Filed: 09/02/24 11:21> Time Seen by Provider: 08/31/24 23:18 <Cristine Owens PA-C - Last Filed: 09/02/24 11:21> Source: patient <LIVIA Wang Last Filed: 09/02/24 11:21> Mode of arrival: ambulatory <LIVIA Wang Last Filed: 09/02/24 11:21> Limitations: no limitations <LIVIA Wang Last Filed: 09/02/24 11:21> History of Present Illness HPI narrative: This is a 49 year old male that presents to the ER for right great toe infection. Report redness, swelling, pain, abnormal drainage. He was seen at another hospital for this. Has been taking Doxycycline with little relief. Denies fevers. <Cristine Owens PA-C - Last Filed: 09/02/24 11:21> Related Data Home medications: Home Medications Medication Instructions Recorded Confirmed Last Taken Type carvedilol 6.25 mg tablet 6.25 mg PO Q12H 10/18/20 08/19/24 08/18/24 History albuterol sulfate 1.25 mg/3 mL 2.5 mg inhalation Q4H PRN 04/13/21 08/12/24 2 Days Ago History solution for nebulization Shortness Of Breath ~10/20/23 gabapentin 100 mg capsule 300 mg PO BID 04/13/21 08/19/24 08/18/24 History losartan 25 mg tablet 50 mg PO DAILY 04/13/21 08/19/24 08/18/24 History albuterol sulfate 90 mcg/actuation 2 puff inhalation Q4-6H PRN 10/22/23 08/12/24 2 Days Ago History aerosol inhaler shortness of breath or wheezing ~10/20/23 atorvastatin 20 mg tablet 80 mg PO HS 10/22/23 08/19/24 08/18/24 History azelastine 137 mcg (0.1 %) nasal 137 mcg intranasal BID 10/22/23 08/19/24 08/18/24 History spray furosemide 40 mg tablet (Lasix) 40 mg PO BID 10/22/23 08/19/24 08/18/24 History lamotrigine 100 mg tablet 100 mg PO BID 10/22/23 08/19/24 08/18/24 History ziprasidone HCl 60 mg capsule 60 mg PO DAILY 10/22/23 08/19/24 08/18/24 History aspirin 81 mg tablet,delayed 81 mg PO DAILY 02/25/24 08/19/24 08/14/24 History release budesonide 160 mcg-glycopyr 9 2 inh inhalation BID 02/25/24 08/19/24 08/18/24 History mcg-formot 4.8 mcg/actuation HFA inhaler (Breztri Aerosphere) hydroxyzine pamoate 50 mg capsule 50 mg PO BID PRN Anxiety 02/25/24 08/12/24 Unknown History potassium chloride 20 mEq/15 mL 20 meq PO DAILY 02/25/24 08/19/24 08/18/24 History oral liquid ziprasidone HCl 80 mg capsule 80 mg PO HS 02/25/24 08/19/24 08/18/24 History buspirone 30 mg tablet 30 mg PO BID 03/25/24 08/19/24 08/18/24 History <Cristine Owens PA-C - Last Filed: 09/02/24 11:21> Allergies/adverse reactions: Allergies Allergy/AdvReac Type Severity Reaction Status Date / Time Penicillins Allergy Mild Hives Verified 09/02/24 10:52 <Cristine Owens PA-C - Last Filed: 09/02/24 11:21> Review of Systems Review of Systems: CONSTITUTIONAL: Denies fever MUSCULOSKELETAL: Reports joint pain, and myalgia. NEUROLOGIC: Denies numbness <Cristine Owens PA-C - Last Filed: 09/02/24 11:21> All systems reviewed & are unremarkable except as noted in HPI and below <Cristine Owens PA-C - Last Filed: 09/02/24 11:21> [facility] Past Medical History Medical History: Medical History Heart failure with preserved ejection fraction echo pain 04/05/2020 showed a severely enlarged left ventricular chamber with an EF at the low end of normal estimated 50 to 55%, abnormal diastolic function, and mild pulmonary hypertension Dyslipidemia Anxiety and depression Gastroesophageal reflux disease Obstructive sleep apnea Type 2 diabetes mellitus Chronic obstructive pulmonary disease Obesity hypoventilation syndrome Chronic respiratory failure with hypoxia and hypercapnia he is on p.r.n. oxygen during the day and uses a trilogy unit with at nighttime Tobacco abuse Hypertension <Cristine Owens PA-C - Last Filed: 09/02/24 11:21> Surgical History Surgical History: Surgical History History of hernia repair History of cardiac catheterization no intervention History of tonsillectomy <LIVIA Wang Last Filed: 09/02/24 11:21> Family History Family History: Family History Father Diabetes mellitus Other Acute myocardial infarction <LIVIA Wang Last Filed: 09/02/24 11:21> Social History Social History: Social History Social History: Surrogate medical decision maker: Candie Leahy, . Code status: Full code. Smoking packs per day: 2 Smoking cigarettes per day: 40.0 Years smoked: 21 Smoking pack-years: 42.00 Smoking status: Former smoker Tobacco type: cigarettes Second hand tobacco smoke exposure: Yes Smoking end date: 02/24/21 Alcohol intake: current Alcohol use details: rarely Substance use: current Substance use type: marijuana Do You Feel Safe in your Home?: Yes Lack of Transportation: No Lack of Food: Sometimes True Current Housing: I Have Housing Concerned About Future Housing: No Difficulty Paying Gas/Electric Bills: No Difficulty Paying for Meds: No Currently Unemployed: No Education: Trade/Vocational Certificate Difficulty w/ Childcare or Family Care: No Living arrangements: with family Spiritual care concerns: No <LIVIA Wang Last Filed: 09/02/24 11:21> Exam Narrative: GENERAL: Well-appearing, obese, and in no acute distress. HEAD: Normocephalic, atraumatic. EYES: EOMI. CHEST: No respiratory distress. Diffuse expiratory wheezing. No rales or rhonchi HEART: Regular rate and rhythm. No murmur heard. Normal peripheral pulses. EXTREMITIES: Normal range of motion. Edema and erythema to the right great toe SKIN: Warm, dry, no rash. NEURO: No focal deficits. Alert and oriented x3. PSYCH: Normal mood and affect <Cristine Owens PA-C - Last Filed: 09/02/24 11:21> Course Course Emergency Course: I updated patient on his workup and recommendation for admission. Patient does not want to stay in the hospital at this time <Cristine Owens PA-C - Last Filed: 09/02/24 11:21> DIRECTOR OF FLIGHT OPERATIONS/PA Physician Supervision I agree with midlevel documentation; I performed the medical decision making component of this evaluation. <Vita Ann MD - Last Filed: 09/01/24 04:27> Vital Signs Vital signs: Vital Signs Temperature 96.7 F L 08/31/24 22:14 Pulse Rate 97 08/31/24 22:14 Respiratory Rate 18 08/31/24 22:14 Pulse Oximetry 97 08/31/24 22:14 Oxygen Delivery Room Air 08/31/24 22:14 Temperature 98.4 F 08/31/24 23:19 Pulse Rate 109 H 09/01/24 02:20 Respiratory Rate 18 09/01/24 02:20 Blood Pressure 114/75 09/01/24 02:20 Pulse Oximetry 95 09/01/24 02:20 Oxygen Delivery Room Air 08/31/24 23:19 <Cristine Owens PA-C - Last Filed: 09/02/24 11:21> Vital Signs Temperature 96.7 F L 08/31/24 22:14 Pulse Rate 97 08/31/24 22:14 Respiratory Rate 18 08/31/24 22:14 Pulse Oximetry 97 08/31/24 22:14 Oxygen Delivery Room Air 08/31/24 22:14 Temperature 98.4 F 08/31/24 23:19 Pulse Rate 109 H 09/01/24 02:20 Respiratory Rate 18 09/01/24 02:20 Blood Pressure 114/75 09/01/24 02:20 Pulse Oximetry 95 09/01/24 02:20 Oxygen Delivery Room Air 08/31/24 23:19 <Vita Ann MD - Last Filed: 09/01/24 04:27> Medical Decision Making MDM Narrative Medical decision making narrative: Patient history of diabetes presents with diabetic foot infection, labs and imaging obtained with elevated white count, lactate, CRP; IV antibiotics ordered, however patient at this time does not want to stay. He was informed that admission for worsening he can lose foot, he understands and still wants to go home at this time. He is alert and oriented x3, able to make his own medical decisions, and cannot be held here against his well. He is asked to follow up closely with his roving or yarn color checker, return if he changes mind. Will also add Bactrim prescription for additional coverage. <Vita Ann MD - Last Filed: 09/01/24 04:27> Differential Diagnosis Differential Diagnosis: cellulitis, abscess, osteomyelitis <Cristine Owens PA-C - Last Filed: 09/02/24 11:21> Vital Signs Vital Signs: Vital Signs Temperature 96.7 F L 08/31/24 22:14 Pulse Rate 97 08/31/24 22:14 Respiratory Rate 18 08/31/24 22:14 Pulse Oximetry 97 08/31/24 22:14 Oxygen Delivery Room Air 08/31/24 22:14 Temperature 98.4 F 08/31/24 23:19 Pulse Rate 109 H 09/01/24 02:20 Respiratory Rate 18 09/01/24 02:20 Blood Pressure 114/75 09/01/24 02:20 Pulse Oximetry 95 09/01/24 02:20 Oxygen Delivery Room Air 08/31/24 23:19 <Cristine Owens PA-C - Last Filed: 09/02/24 11:21> Vital Signs Temperature 96.7 F L 08/31/24 22:14 Pulse Rate 97 08/31/24 22:14 Respiratory Rate 18 08/31/24 22:14 Pulse Oximetry 97 08/31/24 22:14 Oxygen Delivery Room Air 08/31/24 22:14 Temperature 98.4 F 08/31/24 23:19 Pulse Rate 109 H 09/01/24 02:20 Respiratory Rate 18 09/01/24 02:20 Blood Pressure 114/75 09/01/24 02:20 Pulse Oximetry 95 09/01/24 02:20 Oxygen Delivery Room Air 08/31/24 23:19 <Vita Ann MD - Last Filed: 09/01/24 04:27> Lab Data Lab results reviewed: Yes I reviewed the patient's lab results. <Cristine Owens PA-C - Last Filed: 09/02/24 11:21> Result diagrams: 08/31/24 23:47 08/31/24 23:47 <Cristine Owens PA-C - Last Filed: 09/02/24 11:21> Labs: Lab Results 08/31/24 Range/Units 23:47 WBC 10.8 H (4.5-10.0) K/mm3 RBC 4.28 L (4.6-6.20) M/mm3 Hgb 12.6 L (14.0-18.0) g/dL Hct 40.1 L (42.0-52.0) % MCV 93.7 (80-100) fl MCH 29.4 (26-34) pg MCHC 31.4 L (32-36) g/dl RDW 13.9 (11.5-14.5) % Plt Count 205 (150-375) k/mm3 MPV 10.0 (7.4-10.4) fl Immature Gran % (Auto) 0.5 (0-0.5) % Neut % (Auto) 58.3 (45.5-73.1) % Lymph % (Auto) 33.1 (18.3-44.2) % [place] % (Auto) 5.2 (2.6-8.5) % Eos % (Auto) 2.4 (0-4.4) % Baso % (Auto) 0.5 (0.2-1.2) % Lymph # (Auto) 3.58 H (0.9-3.2) K/mm3 [place] # (Auto) 0.6 (0.1-0.6) K/mm3 Eos # (Auto) 0.3 (0-0.3) K/mm3 Baso # (Auto) 0.1 (0.0-0.1) K/mm3 Abs Immat Gran (auto) 0.05 H (0.00-0.031) K/mm3 Absolute Neuts (auto) 6.3 (1.3-6.7) K/mm3 Absolute Nucleated RBC 0.000 (0.0-0.012) K/mm3 Nucleated RBC % 0.0 (0.0-0.2) % ESR 40 H (0-20) mm/hr Sodium 139 (137-145) mmol/L Potassium 3.4 (3.4-5.0) mmol/L Chloride 100 (98-107) mmol/L Carbon Dioxide 29 (22-30) mmol/L Anion Gap 10 (4-12) mmol/L BUN 9 D (9-20) mg/dL Creatinine 0.84 (0.7-1.3) mg/dL Estim Creat Clear Calc Not Reportable Estimated GFR > 60 (59 - ) Glucose 292 H (65-110) mg/dL Lactic Acid 2.8 H (0.7-2.0) mmol/L Calcium 8.6 (8.4-10.2) mg/dL C-Reactive Protein 2.7 H (<1.0) mg/dL <Cristine Owens PA-C - Last Filed: 09/02/24 11:21> Lab Results 08/31/24 Range/Units 23:47 WBC 10.8 H (4.5-10.0) K/mm3 RBC 4.28 L (4.6-6.20) M/mm3 Hgb 12.6 L (14.0-18.0) g/dL Hct 40.1 L (42.0-52.0) % MCV 93.7 (80-100) fl MCH 29.4 (26-34) pg MCHC 31.4 L (32-36) g/dl RDW 13.9 (11.5-14.5) % Plt Count 205 (150-375) k/mm3 MPV 10.0 (7.4-10.4) fl Immature Gran % (Auto) 0.5 (0-0.5) % Neut % (Auto) 58.3 (45.5-73.1) % Lymph % (Auto) 33.1 (18.3-44.2) % [place] % (Auto) 5.2 (2.6-8.5) % Eos % (Auto) 2.4 (0-4.4) % Baso % (Auto) 0.5 (0.2-1.2) % Lymph # (Auto) 3.58 H (0.9-3.2) K/mm3 [place] # (Auto) 0.6 (0.1-0.6) K/mm3 Eos # (Auto) 0.3 (0-0.3) K/mm3 Baso # (Auto) 0.1 (0.0-0.1) K/mm3 Abs Immat Gran (auto) 0.05 H (0.00-0.031) K/mm3 Absolute Neuts (auto) 6.3 (1.3-6.7) K/mm3 Absolute Nucleated RBC 0.000 (0.0-0.012) K/mm3 Nucleated RBC % 0.0 (0.0-0.2) % ESR 40 H (0-20) mm/hr Sodium 139 (137-145) mmol/L Potassium 3.4 (3.4-5.0) mmol/L Chloride 100 (98-107) mmol/L Carbon Dioxide 29 (22-30) mmol/L Anion Gap 10 (4-12) mmol/L BUN 9 D (9-20) mg/dL Creatinine 0.84 (0.7-1.3) mg/dL Estim Creat Clear Calc Not Reportable Estimated GFR > 60 (59 - ) Glucose 292 H (65-110) mg/dL Lactic Acid 2.8 H (0.7-2.0) mmol/L Calcium 8.6 (8.4-10.2) mg/dL C-Reactive Protein 2.7 H (<1.0) mg/dL <Vita Ann MD - Last Filed: 09/01/24 04:27> Imaging Data Radiologist's impression: ITS Impressions Foot X-Ray 09/01/24 05:44 Impression: Unremarkable left foot radiographs. Of note, the radiologist read should be RIGHT foot <Cristine Owens PA-C - Last Filed: 09/02/24 11:21> Critical Care Time Critical Care Time Critical Care Time: No <Cristine Owens PA-C - Last Filed: 09/02/24 11:21> Discharge Plan Discharge Clinical Impression: Diabetic infection of right foot <Cristine Owens PA-C - Last Filed: 09/02/24 11:21> Patient Disposition: Home <Cristine Owens PA-C - Last Filed: 09/02/24 11:21> Condition: Stable <Cristine Owens PA-C - Last Filed: 09/02/24 11:21> Instructions: Antibiotic Form, Foot Ulcers in a Person with Diabetes (ED) <Cristine Owens PA-C - Last Filed: 09/02/24 11:21> Additional Instructions: Return to the emergency department if you experience fever, increasing redness and swelling of your wound, abnormal drainage from your wound, or any other symptoms that are concerning to you. Apply antibiotic ointment daily. Do soapy water soaks twice daily. Take oral antibiotics as prescribed Follow-up with your roving or yarn color checker <Cristine Owens PA-C - Last Filed: 09/02/24 11:21> Patient Language: Cameroonian <Cristine Owens PA-C - Last Filed: 09/02/24 11:21> Prescriptions: New sulfamethoxazole-trimethoprim [Bactrim DS] 800-160 mg tablet 1 tablet PO Q12H 7 Days Qty: 14 0RF No Action insulin glargine [Lantus Solostar U-100 Insulin] 100 unit/mL (3 mL) insulin pen 35 unit subcut DAILY Qty: 45 1RF metformin [Glucophage XR] 500 mg tablet extended release 24 hr 1,000 mg PO BID Qty: 360 1RF Humalog KwikPen Insulin 200 unit/mL (3 mL) insulin pen 8 unit subcut TIDWMEAL MDD 54 Qty: 30 2RF Rx Instructions: 8 units before meals 150-180: 1 unit 181-210: 2 units 211-240: 3 units 241-270: 4 units 271-300: 5 units 301-330: 6 units 331-360: 7 units 361-390: 8 units 391-420: 9 units >420: 10 units Jardiance 25 mg tablet 25 mg PO DAILY Qty: 90 1RF Gvoke HypoPen 2-Pack 1 mg/0.2 mL auto-injector 1 mg subcut ONCE Qty: 0.4 4RF Rx Instructions: may repeat once after 15 minutes if no response Ozempic 1 mg/dose (4 mg/3 mL) pen injector 1 mg subcut WEEKLY 90 Days Qty: 9 4RF (DME) Skin Prep Wipes Misc See Rx Instructions .Route Qty: 50 3RF Rx Instructions: As directed buspirone 30 mg tablet 30 mg PO BID atorvastatin 20 mg Tablet 80 mg PO HS azelastine 137 mcg (0.1 %) [place],Non-Aerosol 137 mcg INTRANASAL BID Rx Instructions: Administer 2 puffs into each nostril ziprasidone HCl 60 mg Capsule 60 mg PO DAILY Rx Instructions: give with food (meal/snack) lamotrigine 100 mg Tablet 100 mg PO BID Rx Instructions: Take BID furosemide [Lasix] 40 mg tablet 40 mg PO BID albuterol sulfate 90 mcg/actuation HFA aerosol inhaler 2 puff inhalation Q4-6H PRN (Reason: shortness of breath or wheezing) (DME) pen needle, diabetic 29 gauge x 1/2 needle See Rx Instructions .Route Qty: 100 0RF Rx Instructions: As directed carvedilol 6.25 mg tablet 6.25 mg PO Q12H albuterol sulfate 1.25 mg/3 mL Solution For Nebulization 2.5 mg INHALATION Q4H PRN (Reason: Shortness Of Breath) losartan 25 mg Tablet 50 mg PO DAILY gabapentin 100 mg Capsule 300 mg PO BID Rx Instructions: 2 tabs BID Breztri Aerosphere 160-9-4.8 mcg/actuation HFA aerosol inhaler 2 inh INHALATION BID ziprasidone HCl 80 mg capsule 80 mg PO HS aspirin 81 mg tablet,delayed release (DR/EC) 81 mg PO DAILY potassium chloride 20 mEq/15 mL liquid 20 meq PO DAILY hydroxyzine pamoate 50 mg Capsule 50 mg PO BID PRN (Reason: Anxiety) <Cristine Owens PA-C - Last Filed: 09/02/24 11:21> Follow-up/Referrals: Farroll,Marilee Galdamez MD [Primary Care Provider] - <Cristine Owens PA-C - Last Filed: 09/02/24 11:21>
[2024-08-31 23:30] VITALS: O2SAT 96
[2024-08-31 23:31] VITALS: BP 125/79; O2SAT 96
[2024-08-31 23:54] LABS: Basophils Absolute Auto 0.1 K/mm3 (0.0-0.1); Basophils Percent Auto 0.5 % (0.2-1.2); Eosinophils Absolute Auto 0.3 K/mm3 (0-0.3); Eosinophils Percent Auto 2.4 % (0-4.4); Hematocrit 40.1 % (42.0-52.0); Hemoglobin 12.6 g/dL (14.0-18.0); Immature Granulocyte Absolute 0.05 K/mm3 (0.00-0.031); Immature Granulocyte Percent A 0.5 % (0-0.5); Lymphocytes Absolute Auto 3.58 K/mm3 (0.9-3.2); Lymphocytes Percent Auto 33.1 % (18.3-44.2); Mean Corpuscular HGB Conc 31.4 g/dl (32-36); Mean Corpuscular Hemoglobin 29.4 pg (26-34); Mean Corpuscular Volume 93.7 fl (80-100); Monocytes Absolute Auto 0.6 K/mm3 (0.1-0.6); Monocytes Percent Auto 5.2 % (2.6-8.5); Neutrophils Absolute Auto 6.3 K/mm3 (1.3-6.7); Neutrophils Percent Auto 58.3 % (45.5-73.1); Platelet Count Result 205 k/mm3 (150-375); Red Blood Count 4.28 M/mm3 (4.6-6.20); Red Cell Distribution Width 13.9 % (11.5-14.5); White Blood Count 10.8 K/mm3 (4.5-10.0)
[2024-08-31 23:57] VITALS: RESP 20; O2SAT 97
--- OUTSIDE RECORDS SUMMARY | 2024-08-31 23:58 | XMS_ITS | Referral Summary ---
Author Organization [facility] Address [address] [place] [address] Care Team Providers Care Molded Goods Inspector Trimmer Name Role Phone Kymberly Vaughan MD Unavailable Marilee Vale MD Primary Care Provider [phone] Allergies Active Allergy Reactions Criticality Noted Date [...] (two) times a day with meals Per [facility] this medication has not been filled [...] 08/29/2020 Shortness of breath 08/26/2020 COPD exacerbation ([facility]) 08/26/2020 Bronchitis 08/26/2020 Asthma 08/26/2020 Depression 08/26/2020 Severe sepsis 08/26/2020 Right medial knee pain 07/26/2020 Sprain of medial collateral ligament of right kn ee 07/26/2020 Lumbar strain, initial encounter 04/13/2019 Hernia of anterior abdominal wall 11/23/2015 Overview (07/21/2016): Ventral hernia Cellulitis of lower extremity Acute on chronic diastolic congestive heart fail ure Morbid obesity with BMI of 50.0-59.9, adult ([facility]) Immunizations Immunization Administration Dates [...] often do you attend chur ch or orthodoxy services? 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 Gender Identity Not on file Sexual Orientation [...] ORDERABLES Final Resu lt Performing Organization Address City[facility] Co de Phone Number [facility] [address] Department [place] [address] * (ABNORMAL) Hemoglobin A1c (08/30/2020 3:36 AM CDT) Hgb A1C 7.4(H) 4.0 - 5.6 % [facility] Estimated Average Glucose 166 mg/dL [facility] Comment: The ADA recommends reporting an estimated Average Glucose (eAG) with all Hemoglobin A1c results using the equation derived from a study of 507 normal and diabetic adults. Minority populations were underrepresented and children were not included. (Diabetes Care 31:5305-1759, 2008). The eAG is not equivalent to a fasting glucose. Blood specimen (specimen) 08/30/2020 3:36 AM CDT 08/30/2020 4:56 AM CDT Devendra Fulton MD LAB BLOOD ORD ERABLES Final Result [facility] [address] [facility] Department [place] [address] from Last 3 Months or Most Recently Relevant to Health Maintenance [place] [place] [address] [place] [address] MEDICARE Advance Directives For more information, please contact: [phone] * Full Code (Latest Code Status on File) Date Activated Date Inactivated Comments 01/27/2021 1:54 PM 01/31/2021 4:21 PM * Full Code Date Activated Date Inactivated Comments 08/26/2020 8:05 PM 08/31/2020 6:34 PM * Full Code Date Activated Date Inactivated Comments 11/18/2019 9:22 AM 11/19/2019 10:32 PM Care Teams Molded Goods Inspector Trimmer Relationship Specialty Start Date End Date Marilee Vale MD [address] [place] [id number] PCP - General Emergency Medicine 07/01/23 Kymberly Vaughan MD Consulting Physician Sleep Medicine 11/19/19
--- OUTSIDE RECORDS SUMMARY | 2024-08-31 23:58 | XMS_ITS | Clinical Summary ---
Author Organization [facility] Address [address] [place] [address] Care Team Providers Care Emt Name Role Phone Felicia Ramos PA-C Primary Care Provider + Source Comments [facility],non-owned Affiliates and Associated Physician Practices is amultiple site organization consisting of ambulatory clinics and hospital sitesin [place], [place], [place] and [place]. This disclosure is being madepursuant to the Care Everywhere program and may not contain all information available regarding this patient. 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
--- OUTSIDE RECORDS SUMMARY | 2024-08-31 23:58 | XMS_ITS ---
Author Organization [facility] Address [address] [place] [address] Phone Care Team Providers Care Director Speech And Hearing Name Role Phone Marilee Vale MD Primary Care Provider [phone] Aravind Coelho MD Unavailable Juan Chronic Condition Monitoring Status:Enrolled (Active) Start date:08/28/2024 Enrollment date:08/28/2024 Related social drivers of health:Intimate Partner Violence, Social Connections, Alcohol Use, Financial Resource Strain, Depression, Stress, Physical Activity, Food Insecurity, Transportation Needs, Housing Stability, Utilities [facility] Continued Care and Services Coordination
--- OUTSIDE RECORDS SUMMARY | 2024-08-31 23:58 | XMS_ITS | Clinical Summary ---
Author Organization [facility] Address [address] [place] [address] Phone Care Team Providers Care Wig Comber Name Role Phone Marilee Vale MD Primary Care Provider [phone] Aravind Coelho MD Unavailable Allergies Active Allergy Reactions Criticality Noted Date Comments Dog Fennel Allergy Skin Test Rash,Itching Low 06/28 Cats Penicillins Hives,Rash,Itching High 06/28/2024 Medications fluticasone (FLONASE) 50 MCG/ACT Suspension 1 Rector by Nasal route daily. Use in each [...] mg by mouth daily. Active Glucose Blood (Happiest Mindsuch Ultra Blue Test) Strip by In Vitro route. Use as directed Active triamcinolone (KENALOG) 0.1 % Cream Apply 2 times daily. Application Site: bottom of right foot twice daily (Description and Location) Active nystatin (MYCOSTATIN) 555642 UNIT/GM Cream Apply 3 times daily. Application Site: affected area (Description and Location) Active Glucagon (Gvoke HypoPen 2-Pack) 1 MG/0.2ML Solution Auto-injector by Subcutaneous route. Active Insulin Pen Needle (TRUEplus Pen [place]) 31G X 5 MM Misc by Does [...] Care Team Description 07/01/2024 Telephone [facility] Endocrinology [facility] [address] [place] [address] Aravind Coelho MD Medication Management 06/28/2024 9:30 AM CDT Office Visit [facility] [address] [place] [address] Aravind Coelho MD Type 2 diabetes mellitus with diabetic polyneuropathy, with long-term current use of insulin (HCC) (Primary Dx); Insulin dose changed ([facility]); Class 3 severe obesity due [...] 0.6 oz pur e alcohol) 2x year [facility] Utilities Answer Date Recorded In the past 12 months has [employer], [employer], or water [employer] threatened to shut off services in your [...] any time in the past 12 m [facility], were you homeless or living in a retirement (including now)? No 08/28/2024 Sexually Active Control [...] Result from Last 3 Months Insurance MEDICAID [place] Care Teams Wig Comber Relationship Specialty Start Date End Date Marilee Vale MD [facility] [place] [address] PCP - General Family Medicine 11/06/23 Aravind Coelho MD [address] [phone] Consulting Physician Endocrinology 06/28/24
--- OUTSIDE RECORDS SUMMARY | 2024-08-31 23:58 | XMS_ITS | Patient Health Record ---
Author Organization [facility] Address [address] [place] [address] Care Team Providers Care Cp Bleacher Operator Name Role Phone Brittonervin Ray Primary Care [...] Insured Coverage Start Date Coverage End Date [facility] Family Health Plan [address] [facility] [address] [place] [address] [id number] 2 Dmitri, Jerzy Self - patient is the insured 1 [facility] Telehealth [address] [facility] [address] [place] [address] [id number] 2 Jerzy Rizvi Self - patient is the insured 1 Medical (General) History Medical History History ICD Code CHF Diabetes COPD Asthma Chronic Back pain Surgical History Surgery Date(Month/Year) Tonsilectomy Hernia repair Cardiac Cath Injections in back Hospitalization History Reason Date(Month/Year) Urgent [facility] for left ear in fection 06/06/2022 [facility] for breathing issues Feb 2022 [facility] left leg swollen and infected. Jan 2022 COVID 10/2021 [facility] for gout in rig ht foot May 2021 [facility] [place] Feb 2021
--- OUTSIDE RECORDS SUMMARY | 2024-08-31 23:58 | XMS_ITS | Clinical Summary ---
Author Organization [facility] Address [address] [place] [address] Care Team Providers Care Organ Tuner Electronic Name Role Phone Kymberly Vaughan MD Unavailable Mrailee Vale MD Primary Care Provider [phone] Allergies Active Allergy Reactions Criticality Noted Date [...] (two) times a day with meals Per [facility] this medication has not been filled [...] 08/29/2020 Shortness of breath 08/26/2020 COPD exacerbation ([facility]) 08/26/2020 Bronchitis 08/26/2020 Asthma 08/26/2020 Depression 08/26/2020 Severe sepsis 08/26/2020 Right medial knee pain 07/26/2020 Sprain of medial collateral ligament of right kn ee 07/26/2020 Lumbar strain, initial encounter 04/13/2019 Hernia of anterior abdominal wall 11/23/2015 Overview (07/21/2016): Ventral hernia Cellulitis of lower extremity Acute on chronic diastolic congestive heart fail ure Morbid obesity with BMI of 50.0-59.9, adult ([facility]) Immunizations Immunization Administration Dates Next Due Influenza, [...] often do you attend chur ch or bahai services? 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 Minority populations were underrepresented and children were not included. (Diabetes Care 31:3241-7195, 2008). The eAG is not equivalent to a fasting glucose. Blood specimen (specimen) 08/30/2020 3:36 AM CDT 08/30/2020 4:56 AM CDT Devendra Fulton MD LAB BLOOD ORD ERABLES Final Result [facility] [address] [facility] Department [place] [address] from Last 3 Months or Most Recently Relevant to Health Maintenance Insurance JAMILAH HARDIN [facility] [place] [address] [place] [address] [place] [address] MEDICARE Advance Directives For more information, please contact: [phone] * Full Code (Latest Code Status on File) Date Activated Date Inactivated Comments 01/27/2021 1:54 PM 01/31/2021 4:21 PM * Full Code Date Activated Date Inactivated Comments 08/26/2020 8:05 PM 08/31/2020 6:34 PM * Full Code Date Activated Date Inactivated Comments 11/18/2019 9:22 AM 11/19/2019 10:32 PM Care Teams Organ Tuner Electronic Relationship Specialty Start Date End Date Marilee Vale MD [address] [place] [address] PCP - General Emergency Medicine 07/01/23 Kymberly Vaughan MD Consulting Physician Sleep Medicine 11/19/19
--- OUTSIDE RECORDS SUMMARY | 2024-08-31 23:58 | XMS_ITS | CONTINUITY OF CARE DOCUMENT ---
Author Name owen, owen Address Unknown Organization [facility] Address [address] [facility] [address] [place] [address] Phone [phone] Care Team Providers Care Rattling Machine Tender Name Role Phone José Manuel Edge MD Unavailable [phone] YASH SALEH Unavailable [phone] YASH SALEH Unavailable PROBLEMS Condition Status Date [...] CVA or Stroke: completed - Aminata Bliss PATIENT SCHEDULING MANAGER Preop exam active [facility] Edema active [facility] ENCOUNTERS Date Type Provider Location Encounter Diag nosis - In-person encounter Office Visit José Manuel Edge MD [facility] - In-person encounter Office Visit José Manuel Edge MD [facility] - In-person encounter Office Visit José Manuel Edge MD [facility] - In-person encounter Office Visit José Manuel Edge MD [facility] Family History of CVA or Stroke: - In-person encounter Office Visit José Manuel Edge MD [facility] CAD - Cath 2020 no CAD - In-person encounter Office Visit José Manuel Edge MD [facility] - In-person encounter Office Visit José Manuel Edge MD [facility] CMYOPATHY-08/26 ECHO EF 45 -- EF 50% 07/2009DYSPNEA ON EXERTION;NEG HERMELINDA, LIKELY DUE TO WEIGHTDVT;NEG VDCAD - Cath 2020 no CADANGINA PECTORIS;WILL TRY ECPDIARRHEA, CHRONIC;WILL CHECK GBPreop examEdema - In-person encounter Office Visit José Manuel Edge MD [facility] - In-person encounter Office Visit José Manuel Edge MD [facility] - In-person encounter Office Visit Ivan Ruvalcaba MD [facility] HTN- 07/24 ECHO UNCHANGED 2/09 ECHO EF 46 RSVP 30 LVHCHEST PAIN-08/23 [...] encounter Office Visit José Manuel Edge MD [facility] LEG PAIN-07/25 MICHAEL DOP NEG - In-person encounter Office Visit Ivan Ruvalcaba MD [facility] - In-person encounter Office Visit José Manuel Edge MD [facility] RENAL FAILURE CHRONIC-10/23 LATA US NEG VITAL SIGNS Date Observation Value Provider Body Mass Index (Ratio) 52.21 kg/m2 Manjeet blankenship Taco blood pressure, diastolic 73 mm[Hg] Albina nkLogic blood pressure, systolic 138 mm[Hg] Deena kLogic blood pressure, cuff size large Alfred [facility] blood pressure, diastolic 73 mm[Hg] Alfred rrchen blood pressure, systolic 138 mm[Hg] Arron singh [...] blood pressure, diastolic 100 mm[Hg] Gunnar rri Josenfelder blood pressure, systolic 184 mm[Hg] Chani ri Daier Inhaled O2 2.5 L/min Ruth Negrito lder oxygen saturation, oximetry 98 % Ruth Chalo respiratory rate E&M 18 /min Ruth Julia lomeli pulse rate 100 /min Ruth Lyndsaye lder weight E&M 404 [lb_av] Ruth Lyndsaye lder height E&M 72 [in_i] Ruth Lyndsaye lder Body Mass Index (Ratio) 57.91 kg/m2 Laureen Yañez blood pressure, diastolic 105 mm[Hg] Albina nkLogcarmela blood pressure, systolic 160 mm[Hg] Deena Mezaogcarmela blood pressure, cuff size large Hilda Paez [...] Sidnezariaelder oxygen saturation, oximetry 93 % Ruth Daier respiratory rate E&M 16 /min Ruth G christianoenesherrie pulse rate 104 /min Ruth Lyndsaye lder weight E&M 409 [lb_av] Ruth Lyndsaye lder height E&M 72 [in_i] Ruth Lyndsaye lder blood pressure, diastolic 96 mm[Hg] Ke rri Gruenenfelder blood pressure, systolic 132 mm[Hg] Ker ri Premuenenfelder pulse rate 95 /min Ruth Gruenenfe lder oxygen saturation, oximetry 97 % Ruth Sidnenfelder respiratory rate E&M 18 /min Ruth G christianoenenfelder Body Mass Index (Ratio) 46.92 kg/m2 Zamudio i Chalo weight E&M 346 [lb_av] Ruth Gruenenfe lder height E&M 72 [in_i] Ruth Josenfe lder pulse rate #2 89 Masood [place] [...] Masood [place] oxygen saturation, oximetry 96 % [place] pulse rate 98 /min [place] blood pressure, diastolic 88 mm[Hg] Mónica [...] pressure, diastolic, left arm 77 mm [Hg] [facility] blood pressure, systolic, left arm 119 mm [Hg] [facility] blood pressure, diastolic, right arm 80 m m[Hg] [facility] blood pressure, systolic, right arm 120 m m[Hg] [facility] blood pressure, diastolic 77 mm[Hg] [facility] [place] blood pressure, systolic 119 mm[Hg] [facility] pulse rate 86 /min [facility] oxygen saturation, oximetry 94 % [facility] respiratory rate E&M 16 /min [facility] weight E&M 293 [lb_av] [facility] blood pressure, diastolic, left arm 102 [...] Brandt blood pressure, diastolic 100 mm[Hg] Ra shaunay Brandt blood pressure, systolic 129 mm[Hg] Ran [...] syst olic, second observation 130 mm[Hg] Joaquin Brnadt oxygen saturation, oximetry 95 % Joaquin Brandt [...] pressure, josé tolic, second observation 90 mm[Hg] Joauqin Brandt blood pressure, syst olic, second observation 115 mm[Hg] Joaquin Brandt oxygen saturation, oximetry 96 % Joaquin Brandt pulse rate 88 /min Joaquin Brandt blood pressure, diastolic 80 mm[Hg] Ra ndy Brandt blood pressure, systolic 132 mm[Hg] Ran dy Brantd pulse rate #2 79 Joaquin McPherso n [...] blood pressure, diastolic 80 mm[Hg] Ra ronnie Baumannson blood pressure, systolic 114 mm[Hg] Ran lul Baumannson pulse rate #2 98 Joaquin Owusu n blood pressure, josé tolic, second observation 78 mm[Hg] Joaquin Baumannson blood pressure, syst olic, second observation 139 mm[Hg] Joaquin Brandt oxygen saturation, oximetry 95 % Joaquin Brandt pulse rate 88 /min Joaquin Brandt blood pressure, diastolic 63 mm[Hg] Ra ronnie Brandt blood pressure, systolic 128 mm[Hg] Ran lul Brandt pulse rate #2 109 Jennifer Stalling s blood pressure, josé tolic, second observation 90 mm[Hg] Jennifer [place] blood pressure, syst olic, second observation 143 mm[Hg] Jennifer [place] oxygen saturation, oximetry 96 % Jennifer [place] pulse rate 85 /min Jennifer Maite blood pressure, diastolic 60 mm[Hg] Be y Maite blood pressure, systolic 128 mm[Hg] Bet ty Maite pulse rate #2 80 Jennifer Stalling s blood pressure, josé tolic, second observation 90 mm[Hg] Jennifer Maite blood pressure, syst olic, second observation 143 mm[Hg] Jennifer Maite oxygen saturation, oximetry 96 % Jennifer [place] pulse rate 93 /min Jnenifer Maite blood pressure, diastolic 86 mm[Hg] Be tty Maite blood pressure, systolic 129 mm[Hg] Bet ty [place] pulse rate #2 88 Jennifer Stalling s blood pressure, josé tolic, second observation 84 mm[Hg] Jennifer [place] blood pressure, syst olic, second observation 134 mm[Hg] Jennifer Gaitanings oxygen saturation, oximetry 95 % Jennifer [place] pulse rate 100 /min Jennifer [place] blood pressure, diastolic 82 mm[Hg] Be y [place] blood pressure, systolic 124 mm[Hg] Crystal ortega [place] pulse rate #2 97 Joaquin McPherso n [...] lul Brandt pulse rate #2 94 Joaquin Baumannso n blood pressure, josé tolic, [...] None Masood Chen nitrate usage None Masood [facility] nitrate usage None Masood [facility] nitrate usage None Masood [facility] nitrate usage None [facility] nitrate usage None Masood [facility] nitrate usage none Joaquin Barndt nitrate usage none Joaquin Brandt nitrate usage [...] none Joaquin Brandt nitrate usage none Joaquin Barndt anion gap, serum 12.2 Denetrist Asher globulins, serum, total 3.8 g/dL Darryl Sterling estimated glomerular filtration rate >60 Darryl Sterling alanine aminotransferase (SGPT), serum 59 1/L Darryl Chu [id number]|2024-08-31 23:58:00|2024-08-31 23:58:00|XMS_ITS|BKG TAMARA|External Medical Summaries|[id number]|" Clinical Summary Created on: August 31, 2024 Jerzy Leahy : 1975 Sex: Male Author Organization [facility] [address] Address [address] [place] [address] Care Team Providers Care Rattling Machine Tender Name Role Phone Unavailable Primary Care Provider Unavailabl e Medications aspirin (MICHELLE CHEWABLE) 81 mg Tablet, ChewableIndications :Hyperlipidemia, unspecified hyperlipidemia type Take 1 Tablet (81 mg) by mouth daily. 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
--- OUTSIDE RECORDS SUMMARY | 2024-08-31 23:58 | XMS_ITS ---
Author Organization [facility] Address [address] [place] [address] Phone Care Team Providers Care Procurement Cost Coordinator Name Role Phone Marilee Vale MD Primary Care Provider [phone] Aravind Coelho MD Unavailable Juan [facility] Service Episode Status:Identified (Enrolling) Start date:08/28/2024 Related program episode:Juan Chronic Condition Monitoring (Active) Continued Care and Services Coordination
--- OUTSIDE RECORDS SUMMARY | 2024-08-31 23:59 | XMS_ITS | Continuity of Care Document ---
Author Organization [facility] Address [address] [address] [place] [address] Phone Care Team Providers Care Groover And Turner Name Role Phone Alfa Jolly MD Unavailable [...] PREV VISIT, NEW, AGE 18-39 OFFICE/OUTPATIENT VISIT, [facility] Advance Directives Directive Yes / No Effective Date File Name No Information Encounters Encounter Description Practice Location Reason(s) For Visit Diagnoses Date Provider Providers Copied on Encounter PREV VISIT, NEW, AGE 18-39 [facility], [address] [place], [id number], [place] tel:[phone] [facility] Medicine PHysical (chief complaint) Encounter for general adult medical exam w abnormal findingsEssential (primary) hypertensionCardiom yopathyAsthma [address] [facility] [address], [place], [place], [id number] , [place]. tel:[phone] Referring Provider: Georgette Trinh [place], [place], [id number]. tel:[phone] Family History Family Member Type Diagnosis Age At Onset Brother Problem (finding) Diabetes mellitus type 2 Father Problem (finding) Coronary artery disease 38 Father Problem (finding) Diabetes mellitus type 2 Brother Problem (finding) Alive and well Mother Problem (finding) of metabo lic acidosis at age 38 (Cause Of ) 38 Father Problem (finding) Payers Payer name Insurance type Covered constitution party ID Authoriza tion(s) No Information Social History [...] W/CONTRAST ordered Referral Referred To: ANNIE CERNA [id number] [place], [place], [phone] Ordered: Referrals: ANNIE CERNA. Evaluate and treat [...] Mental Status Date Cognitive Assessment Orientation - Mcarthur ed to time, place, person, situation.
[2024-09-01] VITALS (12 sets, daily range): BP systolic 114–153; BP diastolic 75–77; PULSE 98–109; RESP 18–20; O2SAT 94–96
[2024-09-01] MEDS: IPRATROPIUM 0.5 MG/ALBUTEROL SULFATE 2.5 MG AMPUL.NEB 3 ML INHALATION (00:07)
[2024-09-01 00:14] LABS: Lactic Acid Reflex 2.8 mmol/L (0.7-2.0)
[2024-09-01 00:16] LABS: Anion Gap 10 mmol/L (4-12); Blood Urea Nitrogen 9 mg/dL (9-20); CRP 2.7 mg/dL (<1.0); Calcium 8.6 mg/dL (8.4-10.2); Carbon Dioxide 29 mmol/L (22-30); Chloride 100 mmol/L (98-107); Estimated Glomerular Filt Rate > 60; Glucose 292 mg/dL (65-110); Potassium 3.4 mmol/L (3.4-5.0); Sodium 139 mmol/L (137-145)
[2024-09-01] MEDS: SODIUM CHLORIDE 0.9% IV 1,000 ML 999 ML IV CONT (00:29)
[2024-09-01] MEDS: CEFEPIME 2 GM/NS 50 ML 2 GM/50 ML BAG IVPB (00:29)
[2024-09-01 00:38] LABS: Erythrocyte Sedimentation Rate 40 mm/hr (0-20)
[2024-09-01] MEDS: metroNIDAZOLE 500 MG/ISO 100ML 500 MG/100 ML BAG 100 MG IVPB (00:59)
[2024-09-01 01:51] LABS: Reflex Lactic Acid Yes or No Add Lactic
== END 2024-09-01 02:22 | disposition home or self-care (01) ==
PROVIDERS: Emergency Provider Physician Assistant; PCP Emergency Medicine
DX: E11.628 Type 2 diabetes mellitus with other skin complications (principal); L08.9 Local infection of the skin and subcutaneous tissue, unspecified; I50.9 Heart failure, unspecified; I11.0 Hypertensive heart disease with heart failure; E78.5 Hyperlipidemia, unspecified; E66.2 Morbid (severe) obesity with alveolar hypoventilation; Z68.43 Body mass index [BMI] 50.0-59.9, adult; K21.9 Gastro-esophageal reflux disease without esophagitis; J44.9 Chronic obstructive pulmonary disease, unspecified; J96.11 Chronic respiratory failure with hypoxia; J96.12 Chronic respiratory failure with hypercapnia; F32.A Depression, unspecified; F41.9 Anxiety disorder, unspecified; Z87.891 Personal history of nicotine dependence; Z79.4 Long term (current) use of insulin; Z79.84 Long term (current) use of oral hypoglycemic drugs; Z79.899 Other long term (current) drug therapy; Z79.82 Long term (current) use of aspirin
CPT/HCPCS: 36415; 73630; 80048; 83605; 85025; 85652; 86140; 87040; 87070; 87075; 87205; 94640; 96365; 96367; 99284; J0692; J1836; J7030

== ENCOUNTER 2024-10-14 01:13 | Day surgery (SDC) | payer MEDICARE, MEDICAID, SELFPAY ==
--- NOTE | 2024-10-09 15:27 | PC.NURSE ---
Report to the Outpatient Waiting Room, entrance under the green pavilion located off [facility], at time __1400 on date _10/14/24 . Planned Procedure Time: __1500 .? Time changes happen often and if your time is changed the preop area will call you the afternoon before. - You and your visitor will be asked to self-screen and do not enter if you have any COVID symptoms. Please call surgeon if you need to reschedule. - A mask is optional within the hospital at this time. It is ok to have a light lunch on the day of your surgery and to take your routine medicines with sips of water the day of your procedure. - No food or drink for 2hrs prior to surgery and no smoking, or chewing tobacco (or any form of nicotine). Take only the following medications with a SIP of water on the morning of surgery: _routine meds Medications to discontinue per physician Date to take last dose Please no make-up, nail latvian, hairspray, perfume, deodorant, or body powder the day of surgery.? No jewelry (including any body piercings) or valuables the day of surgery, leave them at home.? Please take a shower or bath the night before, or the morning of, surgery with an antibacterial soap.? Wear comfortable, loose fitting clothing.? - Jewelry must be removed prior to entering the operating room.? Rings and piercings that are not removed may be cut off. - The hospital will not accept responsibility for valuables.? - Please leave all valuables, including medications, at home the day of surgery. If you are going home after surgery, a licensed cdl company flatbed driver must drive you home.? - NO public transportation without another adult if you receive anesthesia. You cannot drive for 24hrs after your procedure. - We recommend that an adult stay with you for 24 hours following discharge. - We also recommend that you do not drive, make important decision, drink alcoholic beverages, or take any drugs that were not prescribed by your health care provider for at least 24 hours after your discharge time. Follow any additional instructions given to you from your surgeon. Telephone instructions given to _Omid and asked if any additional questions and then verbalized understanding. Patient advised to call surgeon office or pre surgery nurse liaison [phone] if any additional questions.
--- NOTE | ~2024-10-14 | XR_ITS ---
EXAMINATION: XR fluoroscopy no charge DATE: 10/14/2024 14:30 CDT INDICATION: BLOCKS BILAT L3-5 MED BILAT L5-S1 FACET JTS . TECHNIQUE: 10 fluoroscopic images of the lumbar spine were obtained during bilateral L3, L4, and L5 m edial branch blocks. Fluoroscopy exposure time was 49.5 seconds. Air Kerma 60.431 mGy. DAP 10.244 mGy m2. COMPARISON: None FINDINGS/IMPRESSION: Fluoroscopic documentation of bilateral L3, L4, L5 medial branch blocks. Please refer to the operativ e note for complete procedural details. Reviewed, dictated and finalized at location K.
--- NOTE | 2024-10-14 13:16 | P.HP_ITS ---
History of Present Illness History of Present Illness Consent: Risks, benefits, and alternatives have been discussed and questions answered. Patient agrees to proceed with procedure. Chief complaint: Lumbosacral spondylosis, chronic low back pain Narrative: Jerzy Leahy is a 49 year old male with chronic, recalcitrant and disabling bilateral lumbosacral back pain secondary to degenerative spondylosis with failure to respond to aggressive conservative measures including PT, oral and topical analgesics, opioid and nonopioid analgesics, rest, time and activity/behavioral modification over the past 1-2 years who presents for diagnostic/prognostic medial branch blocks of the bilateral L3, L4, L5 medial branches/dorsal ramus(# 2 ) addressing the bilateral L4-5, L5-S1 facet joints under fluoroscopic guidance and with contrast control. Review of Systems Review of Systems: All systems reviewed & are unremarkable except as noted in HPI and below PMFSH Past Medical History Medical History Heart failure with preserved ejection fraction echo pain 04/05/2020 showed a severely enlarged left ventricular chamber with an EF at the low end of normal estimated 50 to 55%, abnormal diastolic function, and mild pulmonary hypertension Dyslipidemia Anxiety and depression Gastroesophageal reflux disease Obstructive sleep apnea Type 2 diabetes mellitus Chronic obstructive pulmonary disease Obesity hypoventilation syndrome Chronic respiratory failure with hypoxia and hypercapnia he is on p.r.n. oxygen during the day and uses a trilogy unit with at nighttime Tobacco abuse Hypertension Surgical History Surgical History History of hernia repair History of cardiac catheterization no intervention History of tonsillectomy Family History Family History Father Diabetes mellitus Other Acute myocardial infarction Social History Social History Social History: Surrogate medical decision maker: Candie Leahy, . Code status: Full code. Smoking packs per day: 1.5 Smoking cigarettes per day: 30.0 Years smoked: 25 Smoking pack-years: 37.50 Smoking status: Former smoker Tobacco type: cigarettes Second hand tobacco smoke exposure: Yes Smoking end date: 04/17/21 Alcohol intake: never Alcohol use details: rarely Substance use: never Substance use type: marijuana Last use: 10/07/24 Do You Feel Safe in your Home?: Yes Lack of Transportation: No Lack of Food: Sometimes True Current Housing: I Have Housing Concerned About Future Housing: No Difficulty Paying Gas/Electric Bills: No Difficulty Paying for Meds: No Currently Unemployed: No Education: Trade/Vocational Certificate Difficulty w/ Childcare or Family Care: No Living arrangements: with family Spiritual care concerns: No Meds Home Medications and Allergies Home Medications ?Medication ?Instructions ?Recorded ?Confirmed ?Type carvedilol 6.25 mg tablet 6.25 mg PO Q12H 10/18/20 10/08/24 History albuterol sulfate 1.25 mg/3 mL 2.5 mg inhalation Q4H PRN 04/13/21 10/08/24 History solution for nebulization Shortness Of Breath gabapentin 100 mg capsule 300 mg PO BID 04/13/21 10/08/24 History losartan 25 mg tablet 50 mg PO DAILY 04/13/21 10/08/24 History albuterol sulfate 90 mcg/actuation 2 puff inhalation Q4-6H PRN 10/22/23 10/08/24 History aerosol inhaler shortness of breath or wheezing atorvastatin 20 mg tablet 80 mg PO HS 10/22/23 10/08/24 History azelastine 137 mcg (0.1 %) nasal 137 mcg intranasal BID 10/22/23 10/08/24 H istory spray furosemide 40 mg tablet (Lasix) 40 mg PO BID 10/22/23 10/08/24 History lamotrigine 100 mg tablet 100 mg PO BID 10/22/23 10/08/24 History ziprasidone HCl 60 mg capsule 60 mg PO DAILY 10/22/23 10/08/24 History pen needle, diabetic 29 gauge x #100 ea 10/23/23 08/12/24 Rx 1/2 aspirin 81 mg tablet,delayed 81 mg PO DAILY 02/25/24 10/08/24 History release budesonide 160 mcg-glycopyr 9 2 inh inhalation BID 02/25/24 10/08/24 History mcg-formot 4.8 mcg/actuation HFA inhaler (Breztri Aerosphere) hydroxyzine pamoate 50 mg capsule 50 mg PO BID PRN Anxiety 02/25/24 10/08/24 History potassium chloride 20 mEq/15 mL 20 meq PO DAILY 02/25/24 10/08/24 History oral liquid ziprasidone HCl 80 mg capsule 80 mg PO HS 02/25/24 10/08/24 History buspirone 30 mg tablet 30 mg PO BID 03/25/24 10/08/24 History empagliflozin 25 mg tablet 25 mg PO DAILY #90 tabs 05/29/24 10/08/24 Rx (Jardiance) glucagon 1 mg/0.2 mL subcutaneous 1 mg (0.2 mL) subcut ONCE #0.4 mL 05/29/24 10/08/24 Rx auto-injector (Gvoke HypoPen 2-Pack) insulin glargine 100 unit/mL (3 35 unit (0.35 mL) subcut DAILY #45 05/29/24 10/08/24 Rx mL) subcutaneous pen (Lantus mL Solostar U-100 Insulin) insulin lispro 200 unit/mL (3 mL) 8 unit (0.04 mL) subcut TIDWMEAL 05/29/24 10/08/24 Rx subcutaneous pen (Humalog KwikPen #30 mL U-200 Insulin) metformin 500 mg tablet,extended 1,000 mg (2 x 500 mg) PO BID #360 05/29/24 10/08/24 Rx release 24 hr (Glucophage XR) tabs ostomy supplies (Skin Prep Wipes) #50 ea 05/29/24 08/12/24 Rx semaglutide 1 mg/dose (4 mg/3 mL) 1 mg (0.75 mL) subcut WEEKLY 90 05/29/24 10/08/24 Rx subcutaneous pen injector (Ozempic) days #9 mL Allergies Allergy/AdvReac Type Severity Reaction Status Date / Time Penicillins Allergy Mild Hives Verified 10/08/24 11:53 Exam Narrative: The patient's physical exam is essentially unchanged from prior examination on 09/02/2024. Specifically, patient demonstrates normal lung capacity, tidal volume and respiratory rate without wheezes, crackles, rales or rubs. Heart rate and rhythm are regular without murmurs, gallops or rubs. No JVD. Pulses 2+ globally without increasing peripheral edema. AAOx3 with no evidence of confusion, intoxication or altered mental state, NC/AT without acute distress or altered consciousness. Speech, cognition, mood, insight and judgment at baseline and within normal limits. Assessment and Plan Assessment and plan (1) Lumbosacral spondylosis: Code(s): M47.817 - Spondylosis without myelopathy or radiculopathy, lumbosacral region Status: Acute Assessment and Plan: Proceed as planned with diagnostic/prognostic medial branch blocks of the bilateral L3, L4, L5 medial branches/dorsal ramus(# 2 ) addressing the bilateral L4-5, L5-S1 facet joints under fluoroscopic guidance and with contrast control. (2) Dorsalgia of lumbar region: Code(s): M54.50 - Low back pain, unspecified Status: Acute (3) Chronic pain associated with significant psychosocial dysfunction: Code(s): G89.4 - Chronic pain syndrome Status: Acute
--- NOTE | 2024-10-14 13:19 | P.OP_ITS ---
Procedure Note - Detailed Date of Procedure 10/14/24 Pre-op Diagnosis Lumbosacral spondylosis, chronic low back pain Post-op Diagnosis Same Procedure Performed Diagnostic bilateral Lumbar Medial Branch/Dorsal Ramus Blocks at L3, L4, L5 T reating the bilateral L4-5, L5-S1 Facet Joints Under Fluoroscopic Guidance and with Contrast Control. (4 levels blocked). Surgeon Dennis Suh MD Computer Salesperson [employer] None. Anesthesia Local Description of Procedure INFORMED CONSENT: Risks, benefits and alternatives to the procedure were discussed in detail with the patient who expressed explicit understanding and consent to proceed. Patient was informed verbally and in written form regarding the risks associated with the procedure including the low risk of serious infection, bleeding/bruising, allergic reaction, nerve or organ injury, paralysis, procedural site pain or discomfort, worsening pain and/or mobility, failure to treat and/or disfigurement. The patient expressed explicit understanding and consent to proceed. All materials required for the procedure were available prior to procedure start. Site and side were marked prior to procedure and confirmed in the presence of the patient. PROCEDURE IN DETAIL: The patient was brought to the procedural suite and placed in the prone position. Patient was made comfortable with use of pillows under the head/chest, hips and ankles. Skin overlying the injection site on the affected side(s) was prepared broadly with ChloraPrep applicator and draped in a sterile manner. Aseptic technique was used throughout. The endplates of the vertebral bodies at the site(s) of interest were aligned in the AP view. Ipsil ateral oblique angulation was utilized to optimize visualization of the intersection between the superior articulating process and transverse process at each target site. Local anesthesia was established by infiltration with approximately 5 mL of 1% lidocaine via a 1-1/2 inch 27-gauge needle. A 25-gauge 5.0 inch Quincke spinal needle was advanced until the needle tip contacted periosteum at the target site, right L3. Lateral view was utilized to confirm the appropriate placement of the needle tip just anterior to the facet line and superior to the pedicle. In the Lateral view, 0.25 mL of Omnipaque 300 contrast medium was injected after negative aspiration for CSF, blood or other bodily fluid, showing appropriate extra-articular spread of contrast without evidence of intravascular, foraminal or intrathecal placement. A 0.5 mL solution of 2.0% PF lidocaine was injected after negative repeat aspiration. Appropriate spread of the injectate was confirmed with washout of previously injected contrast. No parasthesias were elicited. Needle was removed completely intact without difficulty. The same exact procedure was repeated for all remaining levels on the ipsilateral side, right L4, L5 medial branches/dorsal ramus, modified as necessary to accommodate for the new target location with identical findings and results and no evidence of complication. The same exact procedure was repeated for all remaining levels on the contralateral side, left L3, L4, L5 medial branches/dorsal ramus, modified as necessary to accommodate for the new target location with identical findings and results and no evidence of complication. Images were saved and documented in the patient chart. Patient's skin was cleaned and sterile bandage applied. The patient tolerated the procedure well. The patient was transported to the recovery area in stable condition where they were observed for an appropriate amount of time prior to discharge, without evidence of complication. Patient was instructed on the appropriate completion of a pain diary over the next 12-24 hours. The patient was instructed to avoid excessive activity for the next 48 hours, including climbing and frequent use of stairs. Showers only for 48 hours. They were instructed not to drive or operate heavy machinery for 24 hours. They are to monitor for severe headaches, fevers, chills, night sweats, erythema/swelling at the site or any other signs of infection, bleeding/bruising, bowel or bladder changes as well as new pain, weakness or numbness in the upper or lower extremity. Should they notice these changes, they are instructed to call our office immediately or report directly to the nearest Emergency Department if no answer or if after posted office hours. COMPLICATIONS: None COMMENTS: None CONTRAST WASTED: 28.5mL Omnipaque 300. Complications No immediate complications Condition Stable Disposition Same day [facility] Billing Surgery - Charge Forward: Surgery Billing
--- NOTE | 2024-10-14 13:19 | WPDHPUPDATE1 ---
History and Physical Update Update Date/Time: 10/14/24 13:19 History and Physical has been reviewed, including an updated exam of the patient. There are NO changes in the patient's condition. Risks, benefits, and alternatives have been discussed and questions answered. Patient agrees to proceed with procedure.
[2024-10-14 13:41] VITALS: BP 131/73; PULSE 94; RESP 22; TEMP 37.4; O2SAT 95
--- NOTE | 2024-10-14 14:24 | SUR.PREOP ---
1344-Pt states has open areas and scabs at rectal area-area not examined.
[2024-10-14 14:45] VITALS: BP 159/82; PULSE 103; RESP 20; O2SAT 95
[2024-10-14] MEDS: LIDOCAINE 1% LOCAL INJ 10 ML VIAL 5 ML INFILTRATE (14:56)
[2024-10-14] MEDS: LIDOCAINE 2% PF LOCAL INJ 5 ML VIAL INFILTRATE (14:57)
[2024-10-14 14:59] VITALS: BP 114/64; PULSE 92; RESP 16; O2SAT 93
[2024-10-14 15:00] VITALS: BP 170/97; PULSE 101; RESP 20; O2SAT 94
== END 2024-10-14 15:15 | disposition home or self-care (01) ==
PROVIDERS: PCP Emergency Medicine; Visit Provider Anesthesiology Pain Medicine
PROC: (CPT 64493; principal; 2024-10-14 14:30)
DX: M47.817 Spondylosis without myelopathy or radiculopathy, lumbosacral region (principal); M54.50 Low back pain, unspecified; G89.4 Chronic pain syndrome; Z87.891 Personal history of nicotine dependence; F12.90 Cannabis use, unspecified, uncomplicated
CPT/HCPCS: 64493; 64494 ×2; 64495 ×2; 99199; J2003; Q9965

== ENCOUNTER 2025-01-17 18:33 | Inpatient (IN) | payer MEDICARE, MEDICAID, SELFPAY ==
--- OUTSIDE RECORDS SUMMARY | 2024-12-20 04:59 | XMS_ITS | Continuity of Care Document ---
Author Organization [facility] Address [address] [place] [id number] Phone Care Team Providers Care Mine Exploration Engineer Name Role Phone Minesh OLGUIN, FACC, FSCAI, José Manuel Unavailable Unava ilable Allergies, Adverse Reactions, Alerts Substance Reaction Status Criticality PENICILLIN Active No Information Medications Medication Instructions Dosage Effective Dates (start - stop) Status Comments furosemide 40 mg tablet TAKE 1 TABLET BY TWICE DAILY - Active Advair HFA 115 mcg-21 mcg/actuation aerosol inhaler - Active atorvastatin 80 mg tablet TAKE 1 TABLET BY MOUTH EVERY DAY - Active albuterol sulfate HFA 90 mcg/actuation aerosol inhaler INHALE 2 PUFFS BY MOUTH EVERY 6 TO 8 HOURS NEEDED - Active carvedilol 6.25 mg tablet TAKE 1 TABLET BY MOUTH TWICE DAILY - Active gabapentin 300 mg capsule TAKE 1 CAPSULE BY MOUTH FOUR TIMES DAILY - Active hydroxyzine pamoate 50 mg capsule TAKE ONE CAPSULE BY MOUTH IN THE MORNING AND TWO CAPSULES AT BEDTIME NEEDED FOR SLEEP / ANXIETY - Active bupropion HCl XL 300 mg 24 hr tablet, extended release TAKE 1 TABLET BY MOUTH EVERY DAY IN THE MORNING - Active ziprasidone 40 mg capsule - Active metformin 500 mg tablet TAKE 1 TABLET BY MOUTH TWICE DAILY - Active sulfamethoxazole 800 mg-trimethoprim 160 mg tablet TAKE 1 TABLET BY MOUTH EVERY 12 HOURS FOR 1 WEEK - Active aspirin 81 mg tablet,delayed release TAKE 1 TABLET BY MOUTH EVERY DAY - Active clonidine HCl 0.1 mg tablet TAKE 1 TABLET BY MOUTH EVERY DAY AT BEDTIME - Active Humalog KwikPen U-200 Insulin 200 unit/mL (3 mL) subcutaneous - Active Jardiance 25 mg tablet TAKE 1 TABLET BY MOUTH DAILY - Active metformin ER 500 mg tablet,extended release 24 hr TAKE 1 TABLETS BY MOUTH DAILY - Active OneTouch Delica Plus Lancet 33 gauge - Active azelastine 137 mcg (0.1 %) nasal spray USE 2 SPRAYS NASALLY TWICE DAILY - Active fluticasone propionate 50 mcg/actuation nasal spray,suspension USE 1 SPRAY IN EACH NOSTRIL NASALLY EVERY DAY - Active lamotrigine 200 mg tablet - Active buspirone 30 mg tablet - Act gael Lantus Solostar U-100 Insulin 100 unit/mL (3 mL) subcutaneous pen - Active Ozempic 1 mg/dose (4 mg/3 mL) subcutaneous pen injector - Active lamotrigine 100 mg tablet - Active glyburide 2.5 mg tablet TAKE 1 TABLET BY MOUTH EVERY DAY - Active Gvoke HypoPen 2-Pack 1 mg/0.2 mL subcutaneous auto-injector - Active buspirone 10 mg tablet - Act gale insulin syringe U-100 with needle 1 mL 31 gauge x 5/16 - Active Jardiance 10 mg tablet TAKE 1 TABLET BY MOUTH EVERY DAY - Active bupropion HCl XL 150 mg 24 hr tablet, extended release TAKE 1 TABLET BY MOUTH EVERY DAY WITH MEALS - Active nystatin 100,000 unit/gram topical cream APPLY TOPICALLY TO THE AFFECTED AREA TWICE DAILY FOR 2 WEEKS - Active azithromycin 250 mg tablet TAKE 2 TABLET S BY MOUTH DAILY - Active methylprednisolone 4 mg tablets in a dose pack FOLLOW PACKAGE DIRECTIONS - Active Mounjaro 5 mg/0.5 mL subcutaneous pen injector INJECT 5 MG UNDER THE SKIN WEEKLY FOR A MONTH - Active Breztri Aerosphere 160 mcg-9mcg-4.8mcg/actuation HFA aerosol inhaler INHALE 2 PUFFS BY MOUTH TWICE DAILY - Active methocarbamol 750 mg tablet TAKE 1 TABLET BY MOUTH THREE TIMES DAILY - Active duloxetine 60 mg capsule,delayed release TAKE 1 CAPSULE BY MOUTH DAILY AT BEDTIME - Active Lantus U-100 Insulin 100 unit/mL subcutaneous solution ADMINISTER 30 UNITS UNDER THE SKIN AT BEDTIME - Active potassium chloride ER 10 mEq tablet,extended release TAKE 1 TABLET BY MOUTH TWICE DAILY DIRECTED - Active glipizide 5 mg tablet TAKE 1 TABLET BY MOUTH EVERY DAY - Active Anoro Ellipta 62.5 mcg-25 mcg/actuation powder for inhalation INHALE 1 PUFF BY MOUTH EVERY DAY DIRECTED - Active losartan 50 mg tablet TAKE 1 TABLET BY MOUTH DAILY - Active B-D PEN NDL [id number](04/18) RED USE DIRECTED - Active Procedures Procedure Date NTRPROF PH1/NTRNET/EHR / ELECTROCARDIOGRAM REPORT Complex e/m visit add on OFFICE/OUTPATIENT VISIT, EST TTE W/DOPPLER, COMPLETE RESEARCH LOWER EXTREMITY STUDY Advance Directives Directive Yes / No Effective Date File Name No Information Encounters Encounter Description Practice Location Reason(s) For Visit Diagnoses Date Provider Providers Copied on Encounter NTRPROF PH1/NTRNET/E HR 5/> [facility], [address] [facility], [place], [place], [id number] , [place] tel: [phone] [facility] Encounter for preprocedural cardiovascular examination Minesh Marin [address], [address] [place] [address], [id number], [place]. tel:[phone] [facility], [address] [place] [address], [id number] , tel: [phone] [facility] OP No Information 5 Eh Smith. [address] [place] [address], [place], [place], [id number], [place]. tel:[phone] Referring Provider: Marilee Vale, [address] [place] [address], [id number]. tel:[phone] OFFICE/OUTPA TIENT VISIT, [facility], [address] [place] [address], [id number] , tel: [phone] [facility] Follow Up of cardiology exam (chief complaint)b il leg swelling (chief complaint)S OB (chief complaint) Heart failure, unspecifiedEssentia l (primary) hypertensionCOPD [address], [address] [place] [address], [id number], [place]. tel:[phone] Referring Provider: Marilee Vale, [address] [place] [address], [id number]. tel:[phone] [facility] , [address] [place] [address], [id number] , [place] tel: [phone] [facility] Essential (primary) hypertension [address], [address] [place] [address], [id number], [place]. tel:[phone] Referring Provider: Marilee Vale, [address] [place] [address], [id number]. tel:[phone] [facility], [address] [place] [address], [id number] , tel: [phone] [facility] Research No Information [address], [address] [place] [address], [id number], [place]. tel:[phone] Referring Provider: José Manuel Rose, [address] [facility], [place], [address] . tel:[phone] [facility] , [address] [place] [address], [id number] , tel: [phone] [facility] No Information 5 Minesh Georges. [address] , [address] [place] [address], [id number], [place]. tel:[phone] Referring Provider: Marilee Vale, [address] [place] [address], [id number]. tel:[phone] [facility] , [address] [place] [address], [id number] , tel: [phone] [facility] No Information Toshialyndsey Bradly. [facility], [place], [place], [id number], . tel:[phone] Family History Family Member Type Diagnosis Age At Onset No Information Payers Payer name Insurance type Covered alliance party ID Authoriza tisuly(s) HUMA[employer] CI [id number] INS TO BE ADDED CI [id number] Social History Type Description Quantity Date Captured Comments Sex Male Smoking Status No Information Chief Complaint And Reason For Visit No Information Reason For Referral Reason For Referral No Information Plan Of Treatment Date Type Action Status Appointment Jerzy Leahy BOOKED Future Order: Lab Order proBNP ( [id number]), Ordered on: Ordered Future Order: Radiology Order At erial Lower Extremity ([id number]), Sent on: Sent History Of Present Illness Encounter Date Complaint History Of Prese nt Illness Follow Up of cardiology exam janina leg swelling SOB Functional Status Date Functional Assessmen t No Information Instructions Date Instruction Additional Infor mation No Information Assessments Type Assessment Date No Information Patient Care Teams Name Effective Dates (start - stop) Status Members No Information
[2025-01-17] VITALS (9 sets, daily range): BP systolic 138–176; BP diastolic 72–108; PULSE 83–100; RESP 16–28; O2SAT 97–98
--- NOTE | ~2025-01-17 | CT_ITS ---
CTA CHEST CT ABDOMEN PELVIS CLINICAL HISTORY: shortness of breath, elevated liver enzymes . COMPARISON: Chest x-ray today CT chest abdomen and pelvis 06/19/2023 TECHNIQUE: Helical CT performed from thoracic inlet to symphysis pubis IV contrast information not listed in PACS Coronal, sagittal reformats. Multiplanar MIPS CT images acquired with automatic exposure control for dose reduction DLP: 2517 mGy-cm FINDINGS: CHEST- Thoracic Aorta: No dissection. No aneurysm. Pulmonary arteries: Normal caliber. No PE. Lungs/Pleura: 2 mm nodule lateral LLL. Otherwise clear. Heart: Mild coronary artery calcification. Tracheobronchial tree: Patent. Nodes: No enlarged nodes. Small node left axilla. Bones: No acute bony abnormality. Soft tissues: Unremarkable. ABDOMEN/PELVIS- Liver: Hepatomegaly, steatosis. Gallbladder: Stone. Spleen: Unremarkable. Pancreas: Unremarkable. Adrenal glands: Unremarkable. Kidneys: Right kidney- No hydronephrosis. No renal stones. Left kidney- No hydronephrosis. No renal stones. Distal esophagus/stomach: Unremarkable. Small bowel loops: Normal caliber and wall thickness. Colon: Diverticula. Normal caliber and wall thickness. Normal RLQ appendix. Nodes: No enlarged nodes. Peritoneum: No ascites. No free air. Urinary bladder: Unremarkable. Prostate: Unremarkable. Bones: No acute bony abnormality. Soft tissues: Unremarkable. Abdominal aorta: Unremarkable. IVC: Unremarkable. Main portal vein, SMV: Patent. IMPRESSION: CHEST- 1. No acute cardiopulmonary findings. ABDOMEN/PELVIS- 1. No acute abdominopelvic findings. 2. Hepatomegaly, with steatosis. 3. Other findings as above. Reviewed, dictated and finalized at location R.
--- NOTE | ~2025-01-17 | XR_ITS ---
Examination: XR chest 1V portable Clinical History: chest pain Comparison: 02/25/2024 Technique: Portable AP Findings: Heart size normal. Diffusely increased interstitial markings. No acute bony abnormality. IMPRESSION: 1. Interstitial pulmonary edema and/or pneumonitis. Reviewed, dictated and finalized at location R.
--- NOTE | 2025-01-17 18:33 | ECG_ITS ---
Test Date: 2025-01-17 21:36:54 Measurements Intervals [place] Rate: 88 P: 52 [place]: 191 QRS: 7 QRSD: 111 T: 44 QT: 345 QTc: 419 Interpretive Statements SINUS RHYTHM WITH SINUS ARRHYTHMIA INTRAVENTRICULAR CONDUCTION DELAY LOW QRS VOLTAGE IN PRECORDIAL LEADS BORDERLINE ECG No previous ECG available for comparison NO SIGNIFICANT CHANGE Electronically Signed On 01-18-2025 07:07:03 CDT by César Swanson D.O.
[2025-01-17 18:51] LABS: Hematocrit 41.1 % (42.0-52.0); Hemoglobin 13.5 g/dL (14.0-18.0); Immature Granulocyte Percent A 0.4 % (0-0.5); Lymphocytes Absolute Auto 2.64 K/mm3 (0.9-3.2); Mean Corpuscular HGB Conc 32.8 g/dl (32-36); Mean Corpuscular Hemoglobin 29.3 pg (26-34); Mean Corpuscular Volume 89.2 fl (80-100); Nucleated Red Blood Cells Absolute Auto 0.000 K/mm3 (0.0-0.012); Nucleated Red Blood Cells Perc 0.0 % (0.0-0.2); Platelet Count Result 201 k/mm3 (150-375); Red Blood Count 4.61 M/mm3 (4.6-6.20); White Blood Count 10.9 K/mm3 (4.5-10.0)
[2025-01-17] MEDS: ASPIRIN 81 MG CHEWABLE TABLET 324 MG PO (18:52)
[2025-01-17 19:02] LABS: Alanine Aminotransferase 59 U/L (6-50); Albumin Level 4.3 g/dL (3.5-5.1); Alkaline Phosphatase 141 U/L (38-126); Anion Gap 13 mmol/L (4-12); Aspartate Amino Transferase 62 U/L (17-59); Bilirubin,Total 0.5 mg/dL (0.2-1.3); Blood Urea Nitrogen 12 mg/dL (9-20); Calcium 9.2 mg/dL (8.4-10.2); Carbon Dioxide 22 mmol/L (22-30); Chloride 100 mmol/L (98-107); Estimated CRCL calculation 188 ml/min; Estimated Glomerular Filt Rate > 60; Glucose 214 mg/dL (65-110); Lipase 86 U/L (23-300); Potassium 3.5 mmol/L (3.4-5.0); Sodium 135 mmol/L (137-145); Total Protein 8.1 g/dL (6.3-8.2)
[2025-01-17 19:08] LABS: INR 1.1; Prothrombin Time 13.8 Seconds (11.1-14.7)
[2025-01-17 19:09] LABS: Partial Thromboplastin Time 28.5 Seconds (22.3-36.8)
[2025-01-17 19:16] LABS: Troponin I < 0.012 ng/mL (0.000-0.034)
--- NOTE | 2025-01-17 19:48 | ED.CHESTPAIN ---
HPI - Chest Pain General Chief Complaint: Chest Pain <Mona Hurst APRN - Last Filed: 01/18/25 04:24> Stated Complaint: Chest pressure/dypnea <Mona Hurst APRN - Last Filed: 01/18/25 04:24> Time Seen by Provider: 01/17/25 18:38 <Mona Hurst APRN - Last Filed: 01/18/25 04:24> History of Present Illness HPI narrative: Patient is a 44-year-old male who presents to the ER with shortness of breath, chest tightness, and tachypnea that started this morning. He reports he has a history of COPD, asthma, CHF, heart attack, and high blood pressure. Patient is medicated for all of these conditions but he reports he did not take his meds this morning. He denies any history of blood clots. Patient also endorses feelings of overheating and sweating. He denies any acute cough, acute back pain, or calf pain. <Mona Hurst APRN - Last Filed: 01/18/25 04:24> Related Data Home Medications: Home Medications ?Medication ?Instructions ?Recorded ?Confirmed ?Last Taken ?Type carvedilol 6.25 mg tablet 6.25 mg PO BID 10/18/20 01/18/25 01/16/25 History albuterol sulfate 1.25 mg/3 mL 2.5 mg inhalation Q4H PRN 04/13/21 01/18/25 01/16/25 History solution for nebulization Shortness Of Breath albuterol sulfate 90 mcg/actuation 2 puff inhalation Q6-8H PRN 10/22/23 01/18/25 01/16/25 History aerosol inhaler shortness of breath or wheezing azelastine 137 mcg (0.1 %) nasal 137 mcg intranasal BID 10/22/23 01/18/25 01/16/25 History spray furosemide 40 mg tablet (Lasix) 40 mg PO BID 10/22/23 01/18/25 01/16/25 History ziprasidone HCl 60 mg capsule 60 mg PO BID 10/22/23 01/18/25 01/16/25 History aspirin 81 mg tablet,delayed 81 mg PO DAILY 02/25/24 01/18/25 01/16/25 History release hydroxyzine pamoate 50 mg capsule 50 mg PO BID PRN Anxiety 02/25/24 01/18/25 10/11/24 History buspirone 30 mg tablet 30 mg PO BID 03/25/24 01/18/25 01/16/25 History atorvastatin 80 mg tablet 80 mg PO DAILY 01/18/25 01/18/25 01/16/25 History bupropion HCl 300 mg 24 hr tablet, 300 mg PO DAILY 01/18/25 01/18/25 01/16/25 History extended release buspirone 10 mg tablet 10 mg PO TID 01/18/25 01/18/25 01/16/25 History doxycycline hyclate 100 mg tablet 100 mg PO BIDWM 01/18/25 01/18/25 01/16/25 History empagliflozin 25 mg tablet 25 mg PO DAILY 01/18/25 01/18/25 01/16/25 History (Jardiance) famotidine 40 mg tablet 40 mg PO HS 01/18/25 01/18/25 01/16/25 History fluticasone propionate 115 2 puff inhalation BID 01/18/25 01/18/25 01/16/25 History mcg-salmeterol 21 mcg/actuation HFA inhaler (Advair HFA) fluticasone propionate 50 1 spray intranasal DAILY 01/18/25 01/18/25 01/16/25 History mcg/actuation nasal spray,suspension gabapentin 300 mg capsule 300 mg PO QID 01/18/25 01/18/25 01/16/25 History insulin glargine 100 unit/mL (3 50 unit subcut HS 01/18/25 01/18/25 01/16/25 History mL) subcutaneous pen (Lantus Solostar U-100 Insulin) ipratropium 0.5 mg-albuterol 3 mg 3 ml inhalation QID 01/18/25 01/18/25 01/16/25 History (2.5 mg base)/3 mL nebulization soln lamotrigine 200 mg tablet 200 mg PO BID 01/18/25 01/18/25 01/16/25 History losartan 50 mg tablet 50 mg PO BID 01/18/25 01/18/25 01/16/25 History metformin 500 mg tablet 500 mg PO BID 01/18/25 01/18/25 01/16/25 History metformin 500 mg tablet,extended 1,000 mg PO BID 01/18/25 01/18/25 01/16/25 History release 24 hr (Glucophage XR) omeprazole 40 mg capsule,delayed 40 mg PO HS 01/18/25 01/18/25 01/16/25 History release peg 3350-electrolytes 236 ml 01/18/25 Unknown History gram-22.74 gram-6.74 gram-5.86 gram solution tirzepatide 2.5 mg/0.5 mL 2.5 mg subcut WEEKLY 01/18/25 01/18/25 Unknown History subcutaneous pen injector (Mounjaro) tirzepatide 5 mg/0.5 mL 5 mg subcut WEEKLY 01/18/25 01/18/25 Unknown History subcutaneous pen injector (Mounjaro) ziprasidone HCl 40 mg capsule 40 mg PO HS 01/18/25 01/18/25 01/16/25 History <Mona Hurst APRN - Last Filed: 01/18/25 04:24> Allergies/Adverse Reactions: Allergies Allergy/AdvReac Type Severity Reaction Status Date / Time Penicillins Allergy Mild Hives Verified 01/17/25 18:42 <Mona Hurst APRN - Last Filed: 01/18/25 04:24> Review of Systems Review of Systems: All systems reviewed & are unremarkable except as noted in HPI and below <Mona Hurst APRN - Last Filed: 01/18/25 04:24> [facility] Past Medical History Medical History: Medical History (Updated 01/18/25 @ 07:00 by Lucia Hatch APRN) Anemia of chronic disease Heart failure with preserved ejection fraction echo pain 04/05/2020 showed a severely enlarged left ventricular chamber with an EF at the low end of normal estimated 50 to 55%, abnormal diastolic function, and mild pulmonary hypertension Dyslipidemia Anxiety and depression Gastroesophageal reflux disease Obstructive sleep apnea Type 2 diabetes mellitus Chronic obstructive pulmonary disease Obesity hypoventilation syndrome Chronic respiratory failure with hypoxia and hypercapnia he is on p.r.n. oxygen during the day and uses a trilogy unit with at nighttime Tobacco abuse Hypertension <Mona Hurst APRN - Last Filed: 01/18/25 04:24> Surgical History Surgical History: Surgical History (Updated 01/18/25 @ 04:07 by Lucia Hatch APRN) History of hernia repair History of cardiac catheterization no intervention x3. The last 1 was around 2022. History of tonsillectomy <Mona Hurst APRN - Last Filed: 01/18/25 04:24> Family History Family History: Family History Father Diabetes mellitus Other Acute myocardial infarction <Mona Hurst APRN - Last Filed: 01/18/25 04:24> Social History Social History: Social History (Updated 01/18/25 @ 04:07 by Lucia Hatch APRN) Social History: He has 4 daughters and he is disabled. Surrogate medical decision maker: Candie Leahy, . Code status: Full code. Smoking packs per day: 1.5 Smoking cigarettes per day: 30.0 Years smoked: 25 Smoking pack-years: 37.50 Smoking status: Former smoker Tobacco type: cigarettes Second hand tobacco smoke exposure: No Smoking end date: 04/17/21 Alcohol intake: former Alcohol use details: rarely Substance use: never Substance use type: marijuana Last use: last used marijuana a week ago Do You Feel Safe in your Home?: Yes Lack of Transportation: No Lack of Food: Never True Current Housing: I Have Housing Concerned About Future Housing: No Difficulty Paying Gas/Electric Bills: No Difficulty Paying for Meds: No Currently Unemployed: No Education: Trade/Vocational Certificate Difficulty w/ Childcare or Family Care: No Living arrangements: with family Spiritual care concerns: No <Mona Hurst APRN - Last Filed: 01/18/25 04:24> Course [employer]/PA Physician Supervision I did hear the nurse practitioner discussing this patient with nursing staff in it seems that at times patient would report feeling better and desiring to go home and at other times was intermittently complaining of shortness of breath and chest pain. Patient appears to be morbidly obese with a BMI of 56. It was determined that patient would be admitted and I did hear the nurse practitioner discussing patient with on-call hospitalist [facility]. I was available for consultation while patient was in the emergency department but did not personally evaluate them and was not directly involved in their care. <Sudha Vigil MD - Last Filed: 01/18/25 09:07> Vital Signs Vital signs: Vital Signs Pulse Rate 94 01/17/25 18:38 Respiratory Rate 18 01/17/25 18:38 Blood Pressure 176/98 H 01/17/25 18:38 Pulse Oximetry 98 01/17/25 18:38 Oxygen Delivery Room Air 01/17/25 18:38 Temperature 98.7 F 01/18/25 05:54 Pulse Rate 83 01/18/25 08:39 Respiratory Rate 20 01/18/25 08:39 Blood Pressure 158/70 H 01/18/25 05:54 Pulse Oximetry 94 01/18/25 08:26 Oxygen Delivery Room Air 01/18/25 08:26 Fraction of Inspired Oxygen 21 01/18/25 08:26 <Mona Hurst, PILOT - Last Filed: 01/18/25 04:24> Vital Signs Pulse Rate 94 01/17/25 18:38 Respiratory Rate 18 01/17/25 18:38 Blood Pressure 176/98 H 01/17/25 18:38 Pulse Oximetry 98 01/17/25 18:38 Oxygen Delivery Room Air 01/17/25 18:38 Temperature 98.7 F 01/18/25 05:54 Pulse Rate 83 01/18/25 08:39 Respiratory Rate 20 01/18/25 08:39 Blood Pressure 158/70 H 01/18/25 05:54 Pulse Oximetry 94 01/18/25 08:26 Oxygen Delivery Room Air 01/18/25 08:26 Fraction of Inspired Oxygen 21 01/18/25 08:26 <Sudha Vigil MD - Last Filed: 01/18/25 09:07> MDM - Chest Pain MDM Narrative Medical decision making narrative: Patient is a 44-year-old male who presents to the ER with shortness of breath, chest tightness, and tachypnea that started this morning. He reports he has a history of COPD, asthma, CHF, heart attack, and high blood pressure. Patient is medicated for all of these conditions but he reports he did not take his meds this morning. He denies any history of blood clots. Patient also endorses feelings of overheating and sweating. He denies any acute cough, acute back pain, or calf pain. Labs Ordered: CBC, CMP, TSH, troponin, COVID/flu/RSV, BNP, PTT, INR, lipase Imaging Ordered: CTA chest PE abdomen pelvis Medications Ordered: DuoNeb x2, morphine 4 mg x 2, potassium chloride p.o., Lasix 40 mg IV, Benadryl IV, Reglan IV Diagnosis: COPD exacerbation, chest pain Patient Education/Shared MDM: 1930- Pt endorsing significant chest pain. He will be given Morphine IV. 1999- Pt is nauseous and vomiting. He will be given Reglan and Benadryl IV for treatment. 2129-Pt endorses improvement of pain but continues to endorse shortness of breath. Will try Lasix IV. Patient's potassium will be replaced orally with Lasix administration because he is currently at 3.5 MDM: Results of lab work and imaging shared with patient. He endorses improvement of symptoms following medication administration and then reports worsening symptoms. After multiple attempts to treat patient's shortness of breath and chest it was decided patient should be admitted to the hospital for further evaluation and treatment. Patient verbalizes understanding and is in agreement with plan. He reports he uses oxygen as needed at home so he will be placed on 3.5 L nasal cannula. Patient is requesting [facility] oxygen administration at night. He has his settings documented on his phone and will share them with provider. CRITICAL CARE ADDENDUM: Indication: COPD exacerbation Time type: intermittent I provided a total of 45 minutes of critical care excluding separately billable procedures. This includes time w/ EMS, initial bedside evaluation, reviewing old records, review of testing done while under my care, discussion w/ the family, nurses, finance consultant and guiding the patient?s care while in the emergency department. Approximate time distribution: 5 minutes ? Initial evaluation, d/w involved parties, attempting to gather old records. 10 minutes ? Documenting medical record 10 minutes ? Review of results (EKGs, labs, imaging) 10 minutes ? Serial repeat bedside evaluation 10 minutes ? Discussing case with multiple providers Please see main chart for details. Excludes separately billable procedures. <Mona Hurst, [place] - Last Filed: 01/18/25 04:24> Differential Diagnosis Differential diagnosis: Likely atypical chest pain, st elevation myocardial infarction, chest pain and other (Pneumonia, pulmonary embolism, pulmonary edema) <Mona Hurst PILOT - Last Filed: 01/18/25 04:24> Lab Data Attestation: I reviewed the patient's lab results. <Monababita Hurst APRN - Last Filed: 01/18/25 04:24> Result diagrams: 01/18/25 05:05 01/18/25 05:05 <Mona Hurst APRN - Last Filed: 01/18/25 04:24> Labs: Lab Results 01/17/25 01/17/25 Range/Units 18:47 21:30 WBC 10.9 H (4.5-10.0) K/mm3 RBC 4.61 (4.6-6.20) M/mm3 Hgb 13.5 L (14.0-18.0) g/dL Hct 41.1 L (42.0-52.0) % MCV 89.2 (80-100) fl MCH 29.3 (26-34) pg MCHC 32.8 (32-36) g/dl RDW 13.9 (11.5-14.5) % Plt Count 201 (150-375) k/mm3 MPV 9.7 (7.4-10.4) fl Immature Gran % (Auto) 0.4 (0-0.5) % Neut % (Auto) 69.2 (45.5-73.1) % Lymph % (Auto) 24.3 (18.3-44.2) % Luna % (Auto) 4.6 (2.6-8.5) % Eos % (Auto) 1.0 (0-4.4) % Baso % (Auto) 0.5 (0.2-1.2) % Lymph # (Auto) 2.64 (0.9-3.2) K/mm3 Luna # (Auto) 0.5 (0.1-0.6) K/mm3 Eos # (Auto) 0.1 (0-0.3) K/mm3 Baso # (Auto) 0.1 (0.0-0.1) K/mm3 Abs Immat Gran (auto) 0.04 H (0.00-0.031) K/mm3 Absolute Neuts (auto) 7.5 H (1.3-6.7) K/mm3 Absolute Nucleated RBC 0.000 (0.0-0.012) K/mm3 Nucleated RBC % 0.0 (0.0-0.2) % PT 13.8 (11.1-14.7) Seconds INR 1.1 APTT 28.5 (22.3-36.8) Seconds Sodium 135 L (137-145) mmol/L Potassium 3.5 (3.4-5.0) mmol/L Chloride 100 (98-107) mmol/L Carbon Dioxide 22 (22-30) mmol/L Anion Gap 13 H (4-12) mmol/L BUN 12 (9-20) mg/dL Creatinine 0.72 (0.7-1.3) mg/dL Estim Creat Clear Calc 188 ml/min Estimated GFR > 60 (59 - ) Glucose 214 H (65-110) mg/dL Calcium 9.2 (8.4-10.2) mg/dL Total Bilirubin 0.5 (0.2-1.3) mg/dL AST 62 H (17-59) U/L ALT 59 H (6-50) U/L Alkaline Phosphatase 141 H (38-126) U/L Troponin I < 0.012 < 0.012 (0.000-0.034) ng/mL NT-Pro-B Natriuret Pep 75 (19.9-100) pg/mL Total Protein 8.1 (6.3-8.2) g/dL Albumin 4.3 (3.5-5.1) g/dL Lipase 86 (23-300) U/L <Mona Hurst, PILOT - Last Filed: 01/18/25 04:24> Lab Results 01/17/25 01/17/25 Range/Units 18:47 21:30 WBC 10.9 H (4.5-10.0) K/mm3 RBC 4.61 (4.6-6.20) M/mm3 Hgb 13.5 L (14.0-18.0) g/dL Hct 41.1 L (42.0-52.0) % MCV 89.2 (80-100) fl MCH 29.3 (26-34) pg MCHC 32.8 (32-36) g/dl RDW 13.9 (11.5-14.5) % Plt Count 201 (150-375) k/mm3 MPV 9.7 (7.4-10.4) fl Immature Gran % (Auto) 0.4 (0-0.5) % Neut % (Auto) 69.2 (45.5-73.1) % Lymph % (Auto) 24.3 (18.3-44.2) % Luna % (Auto) 4.6 (2.6-8.5) % Eos % (Auto) 1.0 (0-4.4) % Baso % (Auto) 0.5 (0.2-1.2) % Lymph # (Auto) 2.64 (0.9-3.2) K/mm3 Luna # (Auto) 0.5 (0.1-0.6) K/mm3 Eos # (Auto) 0.1 (0-0.3) K/mm3 Baso # (Auto) 0.1 (0.0-0.1) K/mm3 Abs Immat Gran (auto) 0.04 H (0.00-0.031) K/mm3 Absolute Neuts (auto) 7.5 H (1.3-6.7) K/mm3 Absolute Nucleated RBC 0.000 (0.0-0.012) K/mm3 Nucleated RBC % 0.0 (0.0-0.2) % PT 13.8 (11.1-14.7) Seconds INR 1.1 APTT 28.5 (22.3-36.8) Seconds Sodium 135 L (137-145) mmol/L Potassium 3.5 (3.4-5.0) mmol/L Chloride 100 (98-107) mmol/L Carbon Dioxide 22 (22-30) mmol/L Anion Gap 13 H (4-12) mmol/L BUN 12 (9-20) mg/dL Creatinine 0.72 (0.7-1.3) mg/dL Estim Creat Clear Calc 188 ml/min Estimated GFR > 60 (59 - ) Glucose 214 H (65-110) mg/dL Calcium 9.2 (8.4-10.2) mg/dL Total Bilirubin 0.5 (0.2-1.3) mg/dL AST 62 H (17-59) U/L ALT 59 H (6-50) U/L Alkaline Phosphatase 141 H (38-126) U/L Troponin I < 0.012 < 0.012 (0.000-0.034) ng/mL NT-Pro-B Natriuret Pep 75 (19.9-100) pg/mL Total Protein 8.1 (6.3-8.2) g/dL Albumin 4.3 (3.5-5.1) g/dL Lipase 86 (23-300) U/L <Sudha Vigil MD - Last Filed: 01/18/25 09:07> Imaging Data Attestation: I personally reviewed and interpreted this imaging study as follows: <Mona Hurst APRN - Last Filed: 01/18/25 04:24> Radiologist's impression: Impressions Chest X-Ray 01/17/25 19:13 IMPRESSION: 1. Interstitial pulmonary edema and/or pneumonitis. Chest/Abdomen/Pelvis CTA 01/17/25 19:44 IMPRESSION: CHEST- 1. No acute cardiopulmonary findings. ABDOMEN/PELVIS- 1. No acute abdominopelvic findings. 2. Hepatomegaly, with steatosis. 3. Other findings as above. <Mona Hurst APRN - Last Filed: 01/18/25 04:24> Discharge Plan Discharge Clinical Impression: Acute exacerbation of chronic obstructive pulmonary disease, Chest pain Acute on chronic respiratory failure Qualifiers: Respiratory failure complication: hypoxia Qualified Code(s): J96.21 - Acute and chronic respiratory failure with hypoxia <Mona Hurst APRN - Last Filed: 01/18/25 04:24> Patient Disposition: Still a Patient <Mona Hurst APRN - Last Filed: 01/18/25 04:24> Condition: Stable <Mona Hurst APRN - Last Filed: 01/18/25 04:24>
--- OUTSIDE RECORDS SUMMARY | 2025-01-17 19:54 | XMS_ITS | Clinical Summary ---
Author Organization [facility] Address [address] [place] [address] Phone Care Team Providers Care Hydrometer Tester Name Role Phone AUNDREA OLGUIN, LI Unavailable [phone] YASH SALEH Primary Care Provider [phone] NICK NELSON Unavailable [phone] ANJELICA CALDERON MD Unavailable [phone] Reason for Visit and Chief Complaint RX ISSUE/REFILL Problems Includes: Problems addressed during this encounter and other active Problems All Visits Onset Date Resolved Date Provider Condition S tatus Anxiety Disorder Nos Unknown AKIN Dumont VANE DRUM BARKER OPERATOR-FPA, RADIO TELEVISION TECHNICAL DIRECTOR-BC Active Last Documented On 2 10:55AM ; [facility] Bipolar I Disorder Unknown AKIN Dumont VANE AP RN-FPA, RADIO TELEVISION TECHNICAL DIRECTOR-BC Active Last Documented On 2 10:55AM ; [facility] Congestive Heart Failure Unknown AKIN Dumont K ULP DRUM BARKER OPERATOR-FPA, RADIO TELEVISION TECHNICAL DIRECTOR-BC Active Last Documented On 2 10:27AM ; [facility] Fatty Liver Unknown AKIN Dumont VANE DRUM BARKER OPERATOR-FPA, RADIO TELEVISION TECHNICAL DIRECTOR-BC Active Last Documented On 2 10:54AM ; [facility] Chronic Obstructive Pulmonar y Disease Unknown AKIN Dumont VANE DRUM BARKER OPERATOR-FPA, RADIO TELEVISION TECHNICAL DIRECTOR-BC Active Last Documented On 2 10:28AM ; [facility] Diabetes Mellitus Unknown AKIN Dumont VANE APR N-FPA, RADIO TELEVISION TECHNICAL DIRECTOR-BC Active Last Documented On 2 10:27AM ; [facility] Gout Unknown AKIN ELISELP DRUM BARKER OPERATOR-FPA, RADIO TELEVISION TECHNICAL DIRECTOR-BC Active Last Documented On 2 10:56AM ; [facility] Essential Hypertension Unknown AKIN RAZA P DRUM BARKER OPERATOR-FPA, RADIO TELEVISION TECHNICAL DIRECTOR-BC Active Last Documented On 2 10:55AM ; [facility] Obesity Morbid Unknown AKIN CIFUENTES DRUM BARKER OPERATOR-F PA, RADIO TELEVISION TECHNICAL DIRECTOR-BC Active Last Documented On 2 10:28AM ; [facility] Plan of Treatment Pending Tests Order Diagnosis Results Due Ordering P rovider Lab Panel 6 w/ med match [id number] 07/14/23 AKIN CIFUENTES DRUM BARKER OPERATOR- FPA, RADIO TELEVISION TECHNICAL DIRECTOR-BC Last Documented On 4 1:18PM ; [facility] Lab Buprenorphine with confirmation-[id number] 07/14/23 AKIN ELISELP DRUM BARKER OPERATOR-FPA, RADIO TELEVISION TECHNICAL DIRECTOR-BC Last Documented On 4 1:18PM ; [facility] Therapy - Physical Therapy Physical Therapy Other spondylosis, lumbar region 08/29/23 AKIN ELISELP DRUM BARKER OPERATOR-FPA, RADIO TELEVISION TECHNICAL DIRECTOR-BC Last Documented On 4 3:32PM ; [facility] Assessments Includes: Assessments from this encounter No Assessments Recorded Medical Equipment - Implanted Devices Includes: Current Devices No Medical Equipment Recorded Medications Includes: Medications discussed during this encounter and other current Medications Discontinued / Stopped on this date AKIN ELISELP DRUM BARKER OPERATOR-FPA, RADIO TELEVISION TECHNICAL DIRECTOR-BC on 07/03/2023 Belbuca 150 MCG Buccal Film Provider: AKIN Julia VANE DRUM BARKER OPERATOR- FPA, RADIO TELEVISION TECHNICAL DIRECTOR-BC Diagnosis: Radiculopathy, l umbar region Last Documented On 4 4:15PM By AKIN VANE RADIO TELEVISION TECHNICAL DIRECTOR-BC ; [facility] New / Renewed during this visit AKIN Dumont VANE DRUM BARKER OPERATOR-FPA, RADIO TELEVISION TECHNICAL DIRECTOR-BC on 07/31/2023 Belbuca 150 MCG Buccal Film Provider: AKIN Julia VANE DRUM BARKER OPERATOR- FPA, RADIO TELEVISION TECHNICAL DIRECTOR-BC 30 day supply: 60 film, 0 refills Diagnosis: Radiculopathy, lumbar region dissolve 1 film to inside of cheek every 12 hours, be sure to dissolve fully then rinse mouth after Pharmacy: [facility] - [id number] , [facility], [id number] - Last Documented On 4 2:49PM By AKIN CARTY ; [facility] Current Medications (continue as prescribed) Belbuca 150 MCG Buccal Film 10/03/2023 Provider: MACHELLE BUSH Diagnosis: Radiculopathy, l umbar region dissolve 1 film to inside of cheek every 12 hours, be sure to dissolve fully then rinse mouth after Last Documented On 4 10:22AM By AKIN CARTY ; [facility] DULoxetine HCl 60 MG Oral Capsule Delayed Release Particles 08/29/2023 Provider: MACHELLE BUSH Diagnosis: Other spondylosi s, lumbar region TAKE 1 CAPSULE BY MOUTH ELIZABETH Y AT BEDTIME Last Documented On 4 2:56PM By AKIN CARTY ; [facility] Celecoxib 200 MG Oral Capsule 08/29/2023 Provider: MACHELLE BUSH Diagnosis: Other spondylosi s, lumbar region TAKE 1 CAPSULE BY MOUTH ELIZABETH Y WITH A MEAL Last Documented On 4 2:56PM By AKIN CARTY ; [facility] Methocarbamol 750 MG Oral Tablet 08/29/2023 Provider: MACHELLE ADAMS Diagnosis: Other spondylosi s, lumbar region One tablet three times a day Last Documented On 4 2:56PM By AKIN CARTY ; [facility] Narcan 4 MG/0.1ML Nasal Liquid 04/11/2023 Provider: MACHELLE ADAMS Diagnosis: 1 spray intranasally for suspected overdose Last Documented On 3 1:25PM By AKIN CARTY ; [facility] Ziprasidone HCl 40 MG Oral Capsule 11/01/2022 Provid er: Diagnosis: Last Documented On 3 3:28PM By Rebecca ALFREDO ; [facility] lamoTRIgine 100 MG Oral Tablet 08/18/2022 Provider: Diagnosis: Last Documented On 3 12:25PM By AKIN CIFUENTES [facility] ; [facility] hydrOXYzine Pamoate 25 MG Oral Capsule 08/18/2022 Pr ovider: Diagnosis: Last Documented On 3 12:25PM By AKIN CIFUENTES [facility] ; [facility] Losartan Potassium 50 MG Oral Tablet 07/14/2022 Prov ider: Diagnosis: Last Documented On 3 12:25PM By AKIN CIFUENTES [facility] ; [facility] busPIRone HCl 30 MG Oral Tablet 06/07/2022 Provider: ARIF HABIB Diagnosis: Last Documented On 3 12:25PM By AKIN CIFUENTES [facility] ; [facility] Adult Aspirin Regimen 81 MG Oral Tablet Delayed Releas e 10/21/2021 Provider: Diagnosis: Last Documented On 2 10:31AM By [facility] metFORMIN HCl 500 MG Oral Tablet 10/06/2021 Provider : Diagnosis: Last Documented On 2 10:31AM By [facility]ES [facility] ; [facility] Gabapentin 300 MG Oral Capsule 10/06/2021 Provider: Diagnosis: Last Documented On 2 10:31AM By AKIN CIFUENTES RADIO TELEVISION TECHNICAL DIRECTORALYSHA ; [facility] Anoro Ellipta 62.5-25 MCG/IN H Inhalation Aerosol Powder Breath Activated 10/06/2021 Provider: Diagnosis: One puff daily. Last Documented On 2 10:31AM By AKIN HOGUEJÚNIOR ; [facility] Carvedilol 6.25 MG Oral Tablet 09/30/2021 Provider: Diagnosis: Last Documented On 2 10:31AM By AKIN [facility]ENTES [facility] ; [facility] Furosemide 40 MG Oral Tablet 09/28/2021 Provider: Diagnosis: Last Documented On 2 10:31AM By AKIN [facility]ES [facility] ; [facility] buPROPion HCl ER (XL) 300 MG Oral Tablet Extended Release 24 Hour 09/18/2021 Provider: ARIF HABIB Diagnosis: Last Documented On 2 10:31AM By AKIN COXJÚNIOR ; [facility] Ketoconazole 2% External Cream 09/16/2021 Provider: ADDISON DOBSON MD Diagnosis: Apply to affeted area twice a week. Last Documented On 2 10:31AM By AKIN CARTY ; [facility] Albuterol Sulfate (2.5 MG/3M L) 0.083% Inhalation Nebulization solution 09/09/2021 Provider: Diagnosis: Last Documented On 2 10:31AM By AKIN CARTY ; [facility] Potassium Chloride ER 10 MEQ Oral Tablet Extended Rele ase 09/01/2021 Provider: Diagnosis: Last Documented On 2 10:31AM By AKIN CARTY ; [facility] Past Medications on file Losartan Potassium 25 MG Oral Tablet 03/17/2022 - 03/19 Provider: Diagnosis: 2 tablets daily Last Documented On 2 8:33AM By AKIN CARTY ; [facility] Medications Administered Includes: Administered Medications from this encounter No Administered Medications Recorded Results Includes: Results discussed during this encounter No Results Recorded For Specified Dates History of Present Illness Includes: History of Present Illness from this encounter No History of Present Illness Recorded Social History Description Last Updated Former smoker 10/21/2021 Last Documented On 4 11:17AM ; [facility] Difficulty walking 10/21/2021 Last Documented On 4 11:17AM ; [facility] No consumption of alcohol 10/21/2021 Last Documented On 4 11:17AM ; [facility] Not using drugs 10/21/2021 Last Documented On 4 11:17AM ; [facility] Smoking Status Unknown Procedures and Surgical History Surgical History Last Updated No Pacemaker 10/21/2021 Last Documented On 4 11:17AM ; [facility] Medical History Includes: Medical History addressed during this encounter Description Last Updated Has had a fall in the last 12 months. Last Documented On 4 11:17AM ; [facility] Has a fear of falling. 07/20/2022 Last Documented On 4 11:17AM ; [facility] Uses a cane for support Has motorized pauline mathisr 11/30/2021 Last Documented On 4 11:17AM ; [facility] Currently wearing eyeglasses 10/21/2021 Last Documented On 4 11:17AM ; [facility] No Pain Pump 10/21/2021 Last Documented On 4 11:17AM ; [facility] No Spinal cord stimulator 10/21/2021 Last Documented On 4 11:17AM ; [facility] Family History Includes: Family History addressed during this encounter Description Last Updated Other family history , please specify: 0 10/21/2021 Last Documented On 4 11:17AM ; [facility] Review of Systems Includes: Review of Systems from this encounter No Review of Systems Recorded Mental Status Includes: Mental Status from this encounter No Mental Status Recorded Functional Status Includes: Functional Status from this encounter No Functional Status Recorded Physical Exam Includes: Physical Exam from this encounter No Physical Exam Recorded Allergies Includes: Active Allergies Substance Type Reaction Onset Date Resolved Date Statu s Penicillins Allergy 10/21/2021 Active Last Documented On 4 2:38PM ; [facility] Encounters Encounter Provider Location Date Check-In Time Check-Out Time Diagnosis RX ISSUE/REFILL AKIN CIFUENTES APRN-FPJessee, RADIO TELEVISION TECHNICAL DIRECTOR-BC 07/31/2023 11:17AM 11:59PM Insurance Includes: Active Insurance Policies Plan Name Member ID Group # Subscriber Relationship Effect gael Dates 1 - [facility] PL[facility] [id number] RAZA Lawson Clinical Notes Includes: Clinical Notes from this encounter * Progress note Date Encounter Last Documented by 07/31/2023 RX ISSUE/REFILL Last documented on 07/31/2023; 4:15 PM, AKIN CIFUENTES DRUM BARKER OPERATOR-FPA, RADIO TELEVISION TECHNICAL DIRECTOR-BC; [facility] Active Problems & Conditions - Anxiety Disorder Nos - Bipolar I Disorder - Chronic Obstructive Pulmonary Disease - Congestive Heart Failure - Diabetes Mellitus - Essential Hypertension - Fatty Liver - Gout - Obesity Morbid Chief Complaint Phone Call - Chief Concern: Reason for call: Refill Patient is requesting a refill on ~How is medication taken? BID ~How many are left? 8 Risk Assessment Score: HIGH ~[place]07/08/2023 [quantity of 50] 25 days worth Last Office Visit: 06/30/2023 ~ pt phone # for Return call: ~Last Drug Screen:06/30/2023 Anay is pulling results from [email or web address]. 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 Current Medication - Adult Aspirin Regimen 81 MG Oral Tablet Delayed Release One tablet daily 0 days, 0 refills - Albuterol Sulfate (2.5 MG/3ML) 0.083% Inhalation Nebulization solution 30 days, 0 refills - Anoro Ellipta 62.5-25 MCG/INH Inhalation Aerosol Powder Breath Activated as directed One puff daily., 30 days, 0 refills - buPROPion HCl ER (XL) 300 MG Oral Tablet Extended Release 24 Hour One tablet daily 30 days, 0 refills - busPIRone HCl 30 MG Oral Tablet 30 days, 0 refills - Carvedilol 6.25 MG Oral Tablet One tablet daily 30 days, 0 refills - Celecoxib 200 MG Oral Capsule TAKE 1 CAPSULE BY MOUTH DAILY WITH A MEAL, 30 days, 2 refills - DULoxetine HCl 60 MG Oral Capsule Delayed Release Particles TAKE 1 CAPSULE BY MOUTH DAILY AT BEDTIME, 30 days, 2 refills - Furosemide 40 MG Oral Tablet One tablet twice a day 30 days, 0 refills - Gabapentin 300 MG Oral Capsule One tablet three times a day 30 days, 0 refills - hydrOXYzine Pamoate 25 MG Oral Capsule 22 days, 0 refills - Ketoconazole 2% External Cream Apply to affeted area twice a week., 14 days, 0 refills - lamoTRIgine 100 MG Oral Tablet One tablet twice a day 30 days, 0 refills - Losartan Potassium 50 MG Oral Tablet 90 days, 0 refills - metFORMIN HCl 500 MG Oral Tablet One tablet three times a day 30 days, 0 refills - Methocarbamol 750 MG Oral Tablet One tablet three times a day, 30 days, 2 refills - Narcan 4 MG/0.1ML Nasal Liquid 1 spray intranasally for suspected overdose, 30 days, 0 refills - Potassium Chloride ER 10 MEQ Oral Tablet Extended Release One tablet twice a day 30 days, 0 refills - Ziprasidone HCl 40 MG Oral Capsule 1 capsule daily 30 days, 0 refills Past Medical/Surgical History Reported: Medical: Currently wearing eyeglasses and orthopedic history Uses a cane for support Has motorized wheelchair. No Spinal cord stimulator and no Pain Pump. Surgical / Procedural: No Pacemaker. Physical Trauma: Has had a fall in the last 12 months. Has a fear of falling. Social History Difficulty walking. Tobacco use: Former smoker. Alcohol: No consumption of alcohol. Drug Use: Not using drugs. Allergies - Penicillins Family History Other family history , please specify: Plan StartCited - Other PHY ORDER/COMMENT [place] Rx monitoring shows 30 days given of meds but they only gave him 50 so that is only 25 days worth. He should be able to fill this but if they give him trouble he should let them know this. EndCited StartCited - Radiculopathy, lumbar region Belbuca 150 MCG Film dissolve 1 film to inside of cheek every 12 hours, be sure to dissolve fully then rinse mouth after, 30 days, 0 refills EndCited Care Team - ANJELICA CALDERON MD - Cardiovascular Disease - LI GUILLAUME MD - Pulmonary Disease - JAMILAH ZAPIEN - Primary Care - NICK NELSON - Psychiatric/Mental Health Health Reminders - Assess Tobacco Use satisfied 07/31/2023.
--- OUTSIDE RECORDS SUMMARY | 2025-01-17 19:54 | XMS_ITS | Clinical Summary ---
Author Organization [facility] Address [address] [place] [address] Care Team Providers Care Store Custodian Name Role Phone Kymberly Vaughan MD Unavailable Marilee Vale MD Primary Care Provider [phone] Allergies Active Allergy Reactions Criticality Noted Date [...] (two) times a day with meals Per [facility] pharmacy this medication has not been filled [...] 08/29/2020 Shortness of breath 08/26/2020 COPD exacerbation ([facility]) 08/26/2020 Bronchitis 08/26/2020 Asthma 08/26/2020 Depression 08/26/2020 Severe sepsis 08/26/2020 Right medial knee pain 07/26/2020 Sprain of medial collateral ligament of right kn ee 07/26/2020 Lumbar strain, initial encounter 04/13/2019 Hernia of anterior abdominal wall 11/23/2015 Overview (07/21/2016): Ventral hernia Cellulitis of lower extremity Acute on chronic diastolic congestive heart fail ure Morbid obesity with BMI of 50.0-59.9, adult ([facility]) Immunizations Immunization Administration Dates Next Due Influenza, Quadrivalent, Spl it, Preservative Free, Intramuscular 01/28/2021 Surgical History Surgery Date Site/Laterality Comments TONSILLECTOMY Tonsillectomy OTHER SURGICAL HISTORY Heart Catherizations x 2 / No Stents OTHER SURGICAL HISTORY Laparoscopic ventral hernia repair Medical History Medical History Date Comments Asthma Asthma; Comments : GDS 11/23/2015 - CHF (congestive heart failure) (HCC) COPD (chronic obstructive pu lmonary disease) Depression Diabetes mellitus Coronary artery disease Gout Morbid obesity (HCC) [...] pur e alcohol) rare Social Connection and Isolation Panel Answer Date Recorded In a typical week, how many times do you talk on the phone with family, friends, or neighbors? More than three times a week 01/28/2021 How often do you get togethe r with friends or relatives? More than three times a week 01/28/2021 How often do you attend chur ch or holiness services? 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 (Diabetes Care [id number], 2008). The eAG is not equivalent to a fasting glucose. Blood specimen (specimen) 08/30/2020 3:36 AM CDT 08/30/2020 4:56 AM CDT Devendra Fulton MD LAB BLOOD ORD ERABLES Final Result [facility] [address] [facility] Department [place] [address] from Last 3 Months or Most Recently Relevant to Health Maintenance [place] [address] [place] [address] [employer] CHO[employer]IC[employer] [place] [address] [place] [address] MEDICARE Advance Directives For more information, please contact: [phone] * Full Code (Latest Code Status on File) Date Activated Date Inactivated Comments 01/27/2021 1:54 PM 01/31/2021 4:21 PM * Full Code Date Activated Date Inactivated Comments 08/26/2020 8:05 PM 08/31/2020 6:34 PM * Full Code Date Activated Date Inactivated Comments 11/18/2019 9:22 AM 11/19/2019 10:32 PM Care Teams Store Custodian Relationship Specialty Start Date End Date Marilee Vale MD [address] [place] [address] PCP - General Emergency Medicine 07/01/23 Kymberly Vaughan MD Consulting Physician Sleep Medicine 11/19/19
--- OUTSIDE RECORDS SUMMARY | 2025-01-17 19:54 | XMS_ITS | Clinical Summary ---
Author Organization [facility] Address [address] [place] [address] Phone Care Team Providers Care Family Law Paralegal Name Role Phone AUNDREA OLGUIN, LI Unavailable [phone] YASH SALEH Primary Care Provider [phone] NICK NELSON Unavailable [phone] ANJELICA CALDERON MD Unavailable [phone] Reason for Visit and Chief Complaint RX ISSUE/REFILL Problems Includes: Problems addressed during this encounter and other active Problems All Visits Onset Date Resolved Date Provider Condition S tatus Anxiety Disorder Nos Unknown AKIN Dumont VANE SALES AND MARKETING REPRESENTATIVE-FPA, TANDEM MILL STICKER-BC Active Last Documented On 2 10:55AM ; [facility] Bipolar I Disorder Unknown AKIN Dumont VANE AP RN-FPA, TANDEM MILL STICKER-BC Active Last Documented On 2 10:55AM ; [facility] Congestive Heart Failure Unknown AKIN Dumont K ULP SALES AND MARKETING REPRESENTATIVE-FPA, TANDEM MILL STICKER-BC Active Last Documented On 2 10:27AM ; [facility] Fatty Liver Unknown AKIN Dumont VANE SALES AND MARKETING REPRESENTATIVE-FPA, TANDEM MILL STICKER-BC Active Last Documented On 2 10:54AM ; [facility] Chronic Obstructive Pulmonar y Disease Unknown AKIN Dumont VANE SALES AND MARKETING REPRESENTATIVE-FPA, TANDEM MILL STICKER-BC Active Last Documented On 2 10:28AM ; [facility] Diabetes Mellitus Unknown AKIN Dumont VANE APR N-FPA, TANDEM MILL STICKER-BC Active Last Documented On 2 10:27AM ; [facility] Gout Unknown AKIN ELISELP SALES AND MARKETING REPRESENTATIVE-FPA, TANDEM MILL STICKER-BC Active Last Documented On 2 10:56AM ; [facility] Essential Hypertension Unknown AKIN RAZA P SALES AND MARKETING REPRESENTATIVE-FPA, TANDEM MILL STICKER-BC Active Last Documented On 2 10:55AM ; [facility] Obesity Morbid Unknown AKIN CIFUENTES SALES AND MARKETING REPRESENTATIVE-F PA, TANDEM MILL STICKER-BC Active Last Documented On 2 10:28AM ; [facility] Plan of Treatment Pending Tests Order Diagnosis Results Due Ordering P rovider Lab Panel 6 w/ med match [id number] 07/14/23 AKIN CIFUENTES SALES AND MARKETING REPRESENTATIVE- FPA, TANDEM MILL STICKER-BC Last Documented On 4 1:18PM ; [facility] Lab Buprenorphine with confirmation-[id number] 07/14/23 AKIN CIFUENTES SALES AND MARKETING REPRESENTATIVE-FPA, TANDEM MILL STICKER-BC Last Documented On 4 1:18PM ; [facility] Therapy - Physical Therapy Physical Therapy Other spondylosis, lumbar region 08/29/23 AKIN ELISELP SALES AND MARKETING REPRESENTATIVE-FPA, TANDEM MILL STICKER-BC Last Documented On 4 3:32PM ; [facility] Assessments Includes: Assessments from this encounter No Assessments Recorded Medical Equipment - Implanted Devices Includes: Current Devices No Medical Equipment Recorded Medications Includes: Medications discussed during this encounter and other current Medications Current Medications (continue as prescribed) Belbuca 150 MCG Buccal Film 10/03/2023 Provider: AKIN CIFUENTES SALES AND MARKETING REPRESENTATIVE- FPRENITA HooksBC Diagnosis: Radiculopathy, l umbar region dissolve 1 film to inside of cheek every 12 hours, be sure to dissolve fully then rinse mouth after Last Documented On 4 10:22AM By AKIN CARTY ; [facility] DULoxetine HCl 60 MG Oral Capsule Delayed Release Particles 08/29/2023 Provider: AKIN CIFUENTES APRN- FPJessee TANDEM MILL STICKER-BC Diagnosis: Other spondylosi s, lumbar region TAKE 1 CAPSULE BY MOUTH ELIZABETH Y AT BEDTIME Last Documented On 4 2:56PM By AKIN CARTY ; [facility] Celecoxib 200 MG Oral Capsule 08/29/2023 Provider: MACHELLE BUSH Diagnosis: Other spondylosi s, lumbar region TAKE 1 CAPSULE BY MOUTH ELIZABETH Y WITH A MEAL Last Documented On 4 2:56PM By AKIN CARTY ; [facility] Methocarbamol 750 MG Oral Tablet 08/29/2023 Provider: MACHELLE ADAMS Diagnosis: Other spondylosi s, lumbar region One tablet three times a day Last Documented On 4 2:56PM By AKIN CARTY ; [facility] Narcan 4 MG/0.1ML Nasal Liquid 04/11/2023 Provider: MACHELLE ADAMS Diagnosis: 1 spray intranasally for suspected overdose Last Documented On 3 1:25PM By AKIN CARTY ; [facility] Ziprasidone HCl 40 MG Oral Capsule 11/01/2022 Provid er: Diagnosis: Last Documented On 3 3:28PM By Rebecca ALFREDO ; [facility] lamoTRIgine 100 MG Oral Tablet 08/18/2022 Provider: Diagnosis: Last Documented On 3 12:25PM By AKIN CARTY ; [facility] hydrOXYzine Pamoate 25 MG Oral Capsule 08/18/2022 Pr ovider: Diagnosis: Last Documented On 3 12:25PM By AKIN CARTY ; [facility] Losartan Potassium 50 MG Oral Tablet 07/14/2022 Prov ider: Diagnosis: Last Documented On 3 12:25PM By AKIN CARTY ; [facility] busPIRone HCl 30 MG Oral Tablet 06/07/2022 Provider: NICK HABIB Diagnosis: Last Documented On 3 12:25PM By AKIN CARTY ; [facility] Adult Aspirin Regimen 81 MG Oral Tablet Delayed Releas e 10/21/2021 Provider: Diagnosis: Last Documented On 2 10:31AM By AKIN CARTY ; [facility] metFORMIN HCl 500 MG Oral Tablet 10/06/2021 Provider : Diagnosis: Last Documented On 2 10:31AM By [facility] ; [facility] Gabapentin 300 MG Oral Capsule 10/06/2021 Provider: Diagnosis: Last Documented On 2 10:31AM By [facility] ; [facility] Anoro Ellipta 62.5-25 MCG/IN H Inhalation Aerosol Powder Breath Activated 10/06/2021 Provider: Diagnosis: One puff daily. Last Documented On 2 10:31AM By [facility] ; [facility] Carvedilol 6.25 MG Oral Tablet 09/30/2021 Provider: Diagnosis: Last Documented On 2 10:31AM By AKIN CIFUENTES TANDEM MILL STICKERJÚNIOR ; [facility] Furosemide 40 MG Oral Tablet 09/28/2021 Provider: Diagnosis: Last Documented On 2 10:31AM By AKIN CIFUENTES TANDEM MILL STICKERALYSHA ; [facility] buPROPion HCl ER (XL) 300 MG Oral Tablet Extended Release 24 Hour 09/18/2021 Provider: NICK NELSON Diagnosis: Last Documented On 2 10:31AM By AKIN [facility]ENTES [facility] ; [facility] Ketoconazole 2% External Cream 09/16/2021 Provider: ADDISON DOBSON MD Diagnosis: Apply to affeted area twice a week. Last Documented On 2 10:31AM By AKIN CARTY ; [facility] Albuterol Sulfate (2.5 MG/3M L) 0.083% Inhalation Nebulization solution 09/09/2021 Provider: Diagnosis: Last Documented On 2 10:31AM By AKIN CARTY ; [facility] Potassium Chloride ER 10 MEQ Oral Tablet Extended Rele ase 09/01/2021 Provider: Diagnosis: Last Documented On 2 10:31AM By AKIN [facility]ENTES [facility] ; [facility] Past Medications on file Losartan Potassium 25 MG Oral Tablet 03/17/2022 - 12/3 04/2021 Provider: Diagnosis: 2 tablets daily Last Documented On 2 8:33AM By AKIN [facility]ENTES [facility] ; [facility] Medications Administered Includes: Administered Medications from this encounter No Administered Medications Recorded Results Includes: Results discussed during this encounter No Results Recorded For Specified Dates History of Present Illness Includes: History of Present Illness from this encounter No History of Present Illness Recorded Social History Description Last Updated Former smoker 10/21/2021 Last Documented On 4 11:09AM ; [facility] Difficulty walking 10/21/2021 Last Documented On 4 11:09AM ; [facility] No consumption of alcohol 10/21/2021 Last Documented On 4 11:09AM ; [facility] Not using drugs 10/21/2021 Last Documented On 4 11:09AM ; [facility] Smoking Status Unknown Procedures and Surgical History Surgical History Last Updated No Pacemaker 10/21/2021 Last Documented On 4 11:09AM ; [facility] Medical History Includes: Medical History addressed during this encounter Description Last Updated Has had a fall in the last 12 months. Last Documented On 4 11:09AM ; [facility] Has a fear of falling. 07/20/2022 Last Documented On 4 11:09AM ; [facility] Uses a cane for support Has motorized wh eelchair 11/30/2021 Last Documented On 4 11:09AM ; [facility] Currently wearing eyeglasses 10/21/2021 Last Documented On 4 11:09AM ; [facility] No Pain Pump 10/21/2021 Last Documented On 4 11:09AM ; [facility] No Spinal cord stimulator 10/21/2021 Last Documented On 4 11:09AM ; [facility] Family History Includes: Family History addressed during this encounter Description Last Updated Other family history , please specify: 0 10/21/2021 Last Documented On 4 11:09AM ; [facility] Review of Systems Includes: Review of [...] Active Last Documented On 4 2:38PM ; [facility] Encounters Encounter Provider Location Date Check-In Time Check-Out Time Diagnosis RX ISSUE/REFILL AKIN CIFUENTES APRN-DANNY, BROOKE-BC 09/29/2023 11:09AM 11:59PM Insurance Includes: Active Insurance Policies Plan Name Member ID Group # Subscriber Relationship Effect gael Dates 1 - [facility] PLANS [id number] VAMSIKAMI SHEETS Renny Clinical Notes Includes: Clinical Notes from this encounter * Progress note Date Encounter Last Documented by 09/29/2023 RX ISSUE/REFILL Last documented on 10/03/2023; 10:16 AM, AKIN CIFUENTSE APRN-DANNY, TANDEM MILL STICKER-BC; [facility] Active Problems & Conditions - Anxiety Disorder Nos - Bipolar I Disorder - Chronic Obstructive Pulmonary Disease - Congestive Heart Failure - Diabetes Mellitus - Essential Hypertension - Fatty Liver - Gout - Obesity Morbid Chief Complaint Phone Call - Chief Concern: Reason for call:REFILL Patient is requesting a refill on BELBUCA ~How is medication taken? BID ~How many are left?#13 Risk Assessment Score: HIGH ~[place]:09/09/23 Last Office Visit: 06/30/23 ~ pt phone # for Return call:[phone] ~Last Drug Screen:06/30/23 ~Date/Initials: 09/29/23, KMS. Current Medication - Adult Aspirin Regimen 81 MG Oral Tablet Delayed Release One tablet daily 0 days, 0 refills - Albuterol Sulfate (2.5 MG/3ML) 0.083% Inhalation Nebulization solution 30 days, 0 refills - Anoro Ellipta 62.5-25 MCG/INH Inhalation Aerosol Powder Breath Activated as directed One puff daily., 30 days, 0 refills - Belbuca 150 MCG Buccal Film dissolve 1 film to inside of cheek every 12 hours, be sure to dissolve fully then rinse mouth after, 30 days, 0 refills - buPROPion HCl [...] specify: Plan StartCited - Other PHY ORDER/COMMENT He should have enough through the . Why is he short films? EndCited StartCited - Radiculopathy, lumbar region Belbuca [...] Health Reminders - Assess Tobacco Use satisfied 09/29/2023.
--- OUTSIDE RECORDS SUMMARY | 2025-01-17 19:55 | XMS_ITS ---
Care Plan - [facility] Created on: January 17, 2025 RAZA SHEETS : 1975 Sex: Male Author Organization [facility] Address [address] [place] [address] Phone Care Team Providers Care Milk Route Deliverer Name Role Phone AUNDREA OLGUIN, LI Unavailable [phone] YASH SALEH Primary Care Provider [phone] NICK NELSON Unavailable [phone] ANJELICA CALDERON MD Unavailable [phone]
--- OUTSIDE RECORDS SUMMARY | 2025-01-17 19:55 | XMS_ITS | Clinical Summary ---
Author Organization [facility] Address [address] [place] [address] Phone Care Team Providers Care Minute Clerk Name Role Phone AUNDREA OLGUIN, LI Unavailable [phone] YASH SALEH Primary Care Provider [phone] NICK NELSON Unavailable [phone] ANJELICA CALDERON MD Unavailable [phone] Reason for Visit and Chief Complaint * PHONE CALL Problems Includes: Problems addressed during this encounter and other active Problems All Visits Onset Date Resolved Date Provider Condition S tatus Anxiety Disorder Nos Unknown AKIN Dumont VANE KID CLUB ATTENDANT-FPA, FILTER PRESS OPERATOR-BC Active Last Documented On 2 10:55AM ; [facility] Bipolar I Disorder Unknown AKIN Dumont VANE AP RN-FPA, FILTER PRESS OPERATOR-BC Active Last Documented On 2 10:55AM ; [facility] Congestive Heart Failure Unknown AKIN Dumont K ULP KID CLUB ATTENDANT-FPA, FILTER PRESS OPERATOR-BC Active Last Documented On 2 10:27AM ; [facility] Fatty Liver Unknown AKIN Dumont VANE KID CLUB ATTENDANT-FPA, FILTER PRESS OPERATOR-BC Active Last Documented On 2 10:54AM ; [facility] Chronic Obstructive Pulmonar y Disease Unknown AKIN Dumont VANE KID CLUB ATTENDANT-FPA, FILTER PRESS OPERATOR-BC Active Last Documented On 2 10:28AM ; [facility] Diabetes Mellitus Unknown AKIN Dumont VANE APR N-FPA, FILTER PRESS OPERATOR-BC Active Last Documented On 2 10:27AM ; [facility] Gout Unknown AKIN CIFUENTES KID CLUB ATTENDANT-FPA, FILTER PRESS OPERATOR-BC Active Last Documented On 2 10:56AM ; [facility] Essential Hypertension Unknown AKIN RAZA P KID CLUB ATTENDANT-FPA, FILTER PRESS OPERATOR-BC Active Last Documented On 2 10:55AM ; [facility] Obesity Morbid Unknown AKIN CIFUENTES KID CLUB ATTENDANT-F PA, FILTER PRESS OPERATOR-BC Active Last Documented On 2 10:28AM ; [facility] Plan of Treatment Pending Tests Order Diagnosis Results Due Ordering P rovider Lab Panel 6 w/ med match [id number] 07/14/23 AKIN ELISELP KID CLUB ATTENDANT- FPA, FILTER PRESS OPERATOR-BC Last Documented On 4 1:18PM ; [facility] Lab Buprenorphine with confirmation-[id number] 07/14/23 AKIN CIFUENTES KID CLUB ATTENDANT-FPA, FILTER PRESS OPERATOR-BC Last Documented On 4 1:18PM ; [facility] Therapy - Physical Therapy Physical Therapy Other spondylosis, lumbar region 08/29/23 AKIN ELISELP KID CLUB ATTENDANT-FPA, FILTER PRESS OPERATOR-BC Last Documented On 4 3:32PM ; [facility] Assessments Includes: Assessments from this encounter No Assessments Recorded Medical Equipment - Implanted Devices Includes: Current Devices No Medical Equipment Recorded Medications Includes: Medications discussed during this encounter and other current Medications Current Medications (continue as prescribed) Belbuca 150 MCG Buccal Film 10/03/2023 Provider: RENITA BUSHBC Diagnosis: Radiculopathy, l umbar region dissolve 1 film to inside of cheek every 12 hours, be sure to dissolve fully then rinse mouth after Last Documented On 4 10:22AM By AKIN CARTY ; [facility] DULoxetine HCl 60 MG Oral Capsule Delayed Release Particles 08/29/2023 Provider: AKIN CIFUENTES APRN- RENITA DELGADOBC Diagnosis: Other spondylosi s, lumbar region TAKE 1 CAPSULE BY MOUTH ELIZABETH Y AT BEDTIME Last Documented On 4 2:56PM By AKIN CARTY ; [facility] Celecoxib 200 MG Oral Capsule 08/29/2023 Provider: MACHELLE BUSH Diagnosis: Other spondylosi s, lumbar region TAKE 1 CAPSULE BY MOUTH ELIZABETH Y WITH A MEAL Last Documented On 4 2:56PM By AKIN CARTY ; [facility] Methocarbamol 750 MG Oral Tablet 08/29/2023 Provider: MACHELLE ADAMS Diagnosis: Other spondylosi s, lumbar region One tablet three times a day Last Documented On 4 2:56PM By AKIN CARTY ; [facility] Narcan 4 MG/0.1ML Nasal Liquid 04/11/2023 Provider: MACHELLE ADAMS Diagnosis: 1 spray intranasally for suspected overdose Last Documented On 3 1:25PM By AKIN CARTY ; [facility] Ziprasidone HCl 40 MG Oral Capsule 11/01/2022 Provid er: Diagnosis: Last Documented On 3 3:28PM By Rebecca ALFREDO ; [facility] lamoTRIgine 100 MG Oral Tablet 08/18/2022 Provider: Diagnosis: Last Documented On 3 12:25PM By AKIN CARTY ; [facility] hydrOXYzine Pamoate 25 MG Oral Capsule 08/18/2022 Pr ovider: Diagnosis: Last Documented On 3 12:25PM By AKIN CARTY ; [facility] Losartan Potassium 50 MG Oral Tablet 07/14/2022 Prov ider: Diagnosis: Last Documented On 3 12:25PM By AKIN CARTY ; [facility] busPIRone HCl 30 MG Oral Tablet 06/07/2022 Provider: NICK HABKOKO Diagnosis: Last Documented On 3 12:25PM By AKIN CARTY ; [facility] Adult Aspirin Regimen 81 MG Oral Tablet Delayed Releas e 10/21/2021 Provider: Diagnosis: Last Documented On 2 10:31AM By AKIN CARTY ; [facility] metFORMIN HCl 500 MG Oral Tablet 10/06/2021 Provider : Diagnosis: Last Documented On 2 10:31AM By AKIN CIFUENTES [facility] ; [facility] Gabapentin 300 MG Oral Capsule 10/06/2021 Provider: Diagnosis: Last Documented On 2 10:31AM By AKIN CIFUENTES [facility] ; [facility] Anoro Ellipta 62.5-25 MCG/IN H Inhalation Aerosol Powder Breath Activated 10/06/2021 Provider: Diagnosis: One puff daily. Last Documented On 2 10:31AM By AKIN CIFUENTES [facility] ; [facility] Carvedilol 6.25 MG Oral Tablet 09/30/2021 Provider: Diagnosis: Last Documented On 2 10:31AM By AKIN CIFUENTES [facility] ; [facility] Furosemide 40 MG Oral Tablet 09/28/2021 Provider: Diagnosis: Last Documented On 2 10:31AM By AKIN CIFUENTES [facility] ; [facility] buPROPion HCl ER (XL) 300 MG Oral Tablet Extended Release 24 Hour 09/18/2021 Provider: NICK NELSON Diagnosis: Last Documented On 2 10:31AM By AKIN CIFUENTES [facility] ; [facility] Ketoconazole 2% External Cream 09/16/2021 Provider: ADDISON DOBSON MD Diagnosis: Apply to affeted area twice a week. Last Documented On 2 10:31AM [facility] Albuterol Sulfate (2.5 MG/3M L) 0.083% Inhalation Nebulization solution 09/09/2021 Provider: Diagnosis: Last Documented On 2 10:31AM By [facility] ; [facility] Potassium Chloride ER 10 MEQ Oral Tablet Extended Rele ase 09/01/2021 Provider: Diagnosis: Last Documented On 2 10:31AM By [facility]IN VANE [facility] ; [facility] Past Medications on file Losartan Potassium 25 MG Oral Tablet 03/17/2022 - 12/3 04/2021 Provider: Diagnosis: 2 tablets daily Last Documented On 2 8:33AM By AKIN CIFUENTES [facility] ; [facility] Medications Administered Includes: Administered Medications from this encounter No Administered Medications Recorded Results Includes: Results discussed during this encounter No Results Recorded For Specified Dates History of Present Illness Includes: History of Present Illness from this encounter No History of Present Illness Recorded Social History Description Last Updated Former smoker 10/21/2021 Last Documented On 4 9:58AM ; [facility] Difficulty walking 10/21/2021 Last Documented On 4 9:58AM ; [facility] No consumption of alcohol 10/21/2021 Last Documented On 4 9:58AM ; [facility] Not using drugs 10/21/2021 Last Documented On 4 9:58AM ; [facility] Smoking Status Unknown Procedures and Surgical History Surgical History Last Updated No Pacemaker 10/21/2021 Last Documented On 4 9:58AM ; [facility] Medical History Includes: Medical History addressed during this encounter Description Last Updated Has had a fall in the last 12 months. Last Documented On 4 9:58AM ; [facility] Has a fear of falling. 07/20/2022 Last Documented On 4 9:58AM ; [facility] Uses a cane for support Has motorized wh eelchair 11/30/2021 Last Documented On 4 9:58AM ; [facility] Currently wearing eyeglasses 10/21/2021 Last Documented On 4 9:58AM ; [facility] No Pain Pump 10/21/2021 Last Documented On 4 9:58AM ; [facility] No Spinal cord stimulator 10/21/2021 Last Documented On 4 9:58AM ; [facility] Family History Includes: Family History addressed during this encounter Description Last Updated Other family history , please specify: 0 10/21/2021 Last Documented On 4 9:58AM ; [facility] Review of Systems Includes: Review of [...] Active Last Documented On 4 2:38PM ; [facility] Encounters Encounter Provider Location Date Check-In Time Check-Out Time Diagnosis * PHONE CALL AKIN G VANE BANDA, MACHELLE 09/20/2023 9:59AM 11:59PM Insurance Includes: Active Insurance Policies Plan Name Member ID Group # Subscriber Relationship Effect gael Dates 1 - [facility] PLANS [id number] RAZA Lawson Clinical Notes Includes: Clinical Notes from this encounter * Progress note Date Encounter Last Documented by 09/20/2023 * PHONE CALL Last documented on 09/20/2023; 12:20 PM, AKIN Julia CIFUENTES APRN-DANNY, BROOKE-JÚNIOR; [facility] Active Problems & Conditions - Anxiety Disorder Nos - Bipolar I Disorder - Chronic Obstructive Pulmonary Disease - Congestive Heart Failure - Diabetes Mellitus - Essential Hypertension - Fatty Liver - Gout - Obesity Morbid Chief Complaint Phone Call - Chief Concern: reason for call: Patient states he has completed Therapy and is ready to know what the next step is. 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 Current Medication - Adult Aspirin Regimen 81 [...] specify: Plan StartCited - Other PHY ORDER/COMMENT The last timeI had a visit with him he told me therapy was helping and pain was very manageable with current medications and the therapy. He should definitely continue all of his home exercises and never stop these so he doesn't revert back to where he was. He has a follow-up with me in November if he needs to be seen sooner we can get him in sooner EndCited Care Team - ANJELICA CALDERON MD - Cardiovascular Disease - LI GUILLAUME MD - Pulmonary Disease - JAMILAH ZAPIEN - Primary Care - NICK NELSON - Psychiatric/Mental Health Health Reminders - Assess Tobacco Use satisfied 09/20/2023.
--- OUTSIDE RECORDS SUMMARY | 2025-01-17 19:55 | XMS_ITS ---
Author Organization [facility] Address [address] [place] [address] Phone Care Team Providers Care Circus Trainer Name Role Phone Marilee Vale MD Primary Care Provider [phone] Aravind Coelho MD Unavailable Juan Chronic Condition Monitoring Status:Enrolled (Active) Start date:08/28/2024 Enrollment date:08/28/2024 Related social drivers of health:Intimate Partner Violence, Social Connections, Alcohol Use, Financial Resource Strain, Depression, Stress, Physical Activity, Food Insecurity, Transportation Needs, Housing Stability, Utilities [facility] Continued Care and Services Coordination
--- OUTSIDE RECORDS SUMMARY | 2025-01-17 19:55 | XMS_ITS ---
Author Organization [facility] Address [address] [place] [address] Phone Care Team Providers Care [employer] Name Role Phone AUNDREA OLGUIN, LI Unavailable [phone] YASH SALEH Primary Care Provider [phone] NICK NELSON Unavailable [phone] ANJELICA CALDERON MD Unavailable [phone] Problems Includes: Active, inactive, and resolved Problems All Visits Onset Date Resolved Date Provider Condition S tatus Anxiety Disorder Nos Unknown AKIN Dumont VANE SORTER LAUNDRY ARTICLES-FPA, PHOTOGRAPHER'S ASSISTANT-BC Active Last Documented On 2 10:55AM ; [facility] Bipolar I Disorder Unknown AKIN Dumont VANE AP RN-FPA, PHOTOGRAPHER'S ASSISTANT-BC Active Last Documented On 2 10:55AM ; [facility] Congestive Heart Failure Unknown AKIN Dumont K ULP SORTER LAUNDRY ARTICLES-FPA, PHOTOGRAPHER'S ASSISTANT-BC Active Last Documented On 2 10:27AM ; [facility] Fatty Liver Unknown AKIN Dumont VANE SORTER LAUNDRY ARTICLES-FPA, PHOTOGRAPHER'S ASSISTANT-BC Active Last Documented On 2 10:54AM ; [facility] Chronic Obstructive Pulmonar y Disease Unknown AKIN Dumont VANE SORTER LAUNDRY ARTICLES-FPA, PHOTOGRAPHER'S ASSISTANT-BC Active Last Documented On 2 10:28AM ; [facility] Diabetes Mellitus Unknown AKIN Dumont VANE APR N-FPA, PHOTOGRAPHER'S ASSISTANT-BC Active Last Documented On 2 10:27AM ; [facility] Gout Unknown AKIN CIFUENTES SORTER LAUNDRY ARTICLES-FPA, PHOTOGRAPHER'S ASSISTANT-BC Active Last Documented On 2 10:56AM ; [facility] Essential Hypertension Unknown AKIN RAZA P SORTER LAUNDRY ARTICLES-FPA, PHOTOGRAPHER'S ASSISTANT-BC Active Last Documented On 2 10:55AM ; [facility] Obesity Morbid Unknown AKIN CIFUENTES SORTER LAUNDRY ARTICLES-F PA, PHOTOGRAPHER'S ASSISTANT-BC Active Last Documented On 2 10:28AM ; [facility] Plan of Treatment Pending Tests Order Diagnosis Results Due Ordering P rovider Lab Panel 6 w/ med match [id number] 07/14/23 AKIN ELISELP SORTER LAUNDRY ARTICLES- FPA, PHOTOGRAPHER'S ASSISTANT-BC Last Documented On 4 1:18PM ; [facility] Lab Buprenorphine with confirmation-[id number] 07/14/23 AKIN CIFUENTES SORTER LAUNDRY ARTICLES-FPA, PHOTOGRAPHER'S ASSISTANT-BC Last Documented On 4 1:18PM ; [facility] Therapy - Physical Therapy Physical Therapy Other spondylosis, lumbar region 08/29/23 AKIN CIFUENTES SORTER LAUNDRY ARTICLES-FPA, PHOTOGRAPHER'S ASSISTANT-BC Last Documented On 4 3:32PM ; [facility] Referrals To Diagnosis Pain Management [address] [address] - Other intervertebral disc displacement, lumbar region Note: consent for bilateral L4-5 transforaminal epidural steroid injection under fluoroscopyNo need to hold NSAIDs/ASA Last Documented On 2 8:37AM ; [facility] Pain Management [address] [address] - Other spondylosis with radiculopathy, lumbar region Note: consent for repeat janina ateral L4-5 transforaminal epidural steroid injectionNo need to hold NSAIDs/ASA Last Documented On 2 1:00PM ; [facility] Pain Management [address] [address] - Other spondylosis, lumbar region Note: consent for bilateral L3, L4, and L5 medial branch blocks under fluoroscopyNo need to hold NSAIDsHold ASA [address] Minesh Franz Phone # is Last Documented On 2 8:31AM ; [facility] Pain Management [address] [address] - Other spondylosis, lumbar region Note: consent for confirmato ry bilateral L3, L4, and L5 medial branch blocks under fluoroscopy [levels L4-5 and L5-S1]No need to hold NSAIDsHold ASA [address] Minesh Franz Phone # is Last Documented On 2 11:24AM ; [facility] Pain Management CHRIS RAMOS MD - [address] [address] - Other spondylosis, lumbar region Note: Left L3, L4, L5 medial branch/dorsal ramus thermal RF ablation with fluoroscopy (#1 of 2).Right L3, L4, L5 medial branch/dorsal ramus thermal RF ablation with fluoroscopy (#2 of 2).Diabetic. Hold ASA/NSAIDs x 3 days. PIV/No Abx. No blood thinners.F/U in 3-4 weeks. Last Documented On 3 3:28PM ; [facility] Pain Management [address] [address] - Radiculopathy, lumbar region Note: consent for bilateral L4-5 transforaminal epidural steroid injection under fluoroscopy Last Documented On 3 3:54PM ; [facility] Education and Decision Aids were provided during visit for: Pill Count: nine [place] Last Documented On 4 2:38PM ; [facility] Pill Count: Patient did not bring pain medication to appointment for pill count, per policy. Advised in order to continue to safely prescribe opioids, medication must be brought to each appointment Last Documented On 4 10:03AM ; [facility] Pill Count: 0 Butrans Last Documented On 3 9:10AM ; [facility] Pill Count: 0 Xtampza Last Documented On 3 9:59AM ; [facility] Pill Count: 17 Xtampza Last Documented On 3 8:57AM ; [facility] Pill Count: 18 Xtampza Last Documented On 3 10:45AM ; [facility] Pill Count: twelve Xtampza Last Documented On 3 9:07AM ; [facility] Pill Count: Patient did not bring pain medication to appointment for pill count, per policy. Advised in order to continue to safely prescribe opioids, medication must be brought to each appointment Last Documented On 2 4:25PM ; [facility] Pill Count: 58 Appropriate Last Documented On 2 4:51PM ; [facility] Pill Count: nine Not Appropr iate Xtampza: 2 days short: admits to taking 1 extra not sure where the other 3 pills went: giving him the benefit of the doubt and allowing refill on 03/22: 2 days early this one and only time Last Documented On 2 8:39AM ; [facility] Pill Count: 0 Appropriate Mo rphine 15 ER Last Documented On 2 2:35PM ; [facility] Pill Count: 54 Not Appropria te 12 pills short Last Documented On 2 1:41PM ; [facility] Pill Count: Hydrocodone Last Documented On 2 9:26AM ; [facility] Assessments Includes: Assessments for all patient encounters Findings Encounter Date Pain in thoracic spine * PHONE CALL with AKIN CIFUENTES SORTER LAUNDRY ARTICLES-FPA, PHOTOGRAPHER'S ASSISTANT-BC 09/26/2023 Last Documented On 4 10:29AM ; [facility] Bulging lumbar disc TELEHEALTH with AKIN ELISE LP SORTER LAUNDRY ARTICLES-FPA, PHOTOGRAPHER'S ASSISTANT-BC 08/29/2023 Last Documented On 4 2:52PM ; [facility] Cervicalgia TELEHEALTH with AKIN CIFUENTES A PRN-FPA, PHOTOGRAPHER'S ASSISTANT-BC 08/29/2023 Last Documented On 4 2:52PM ; [facility] Chronic pain syndrome TELEHEALTH with AKIN CIFUENTES SORTER LAUNDRY ARTICLES-FPA, PHOTOGRAPHER'S ASSISTANT-BC 08/29/2023 Last Documented On 4 2:52PM ; [facility] Low back pain TELEHEALTH with AKIN Dumont VANE A PRN-FPA, PHOTOGRAPHER'S ASSISTANT-BC 08/29/2023 Last Documented On 4 2:52PM ; [facility] Lumbar radiculopathy TELEHEALTH with AKIN Dumont K ULP SORTER LAUNDRY ARTICLES-FPA, PHOTOGRAPHER'S ASSISTANT-BC 08/29/2023 Last Documented On 4 2:52PM ; [facility] Lumbar spondylosis TELEHEALTH with AKIN Dumont KUL P SORTER LAUNDRY ARTICLES-FPA, PHOTOGRAPHER'S ASSISTANT-BC 08/29/2023 Last Documented On 4 2:52PM ; [facility] Lumbar stenosis with neuroge may claudication TELEHEALTH with AKIN Dumont VANE SORTER LAUNDRY ARTICLES-FPA, PHOTOGRAPHER'S ASSISTANT-BC 08/29/2023 Last Documented On 4 2:52PM ; [facility] Morbid obesity TELEHEALTH with AKIN Dumont VANE A PRN-FPA, PHOTOGRAPHER'S ASSISTANT-BC 08/29/2023 Last Documented On 4 2:52PM ; [facility] Pain in thoracic spine TELEHEALTH with AKIN Dumont VANE SORTER LAUNDRY ARTICLES-FPA, PHOTOGRAPHER'S ASSISTANT-BC 08/29/2023 Last Documented On 4 2:52PM ; [facility] Bulging lumbar disc PAIN MANAGEMENT FOLL OW UP with AKIN Dumont VANE SORTER LAUNDRY ARTICLES-FPA, PHOTOGRAPHER'S ASSISTANT-BC 06/30/2023 Last Documented On 4 1:18PM ; [facility] Cervicalgia PAIN MANAGEMENT FOLLOW UP with Milton SHARONA Julia VANE SORTER LAUNDRY ARTICLES-FPA, PHOTOGRAPHER'S ASSISTANT-BC 06/30/2023 Last Documented On 4 1:18PM ; [facility] Chronic pain syndrome PAIN MANAGEMENT FO LLOW UP with AKIN Julia VANE SORTER LAUNDRY ARTICLES-FPA, PHOTOGRAPHER'S ASSISTANT-BC 06/30/2023 Last Documented On 4 1:18PM ; [facility] Low back pain PAIN MANAGEMENT FOLL OW UP with AKIN G VANE SORTER LAUNDRY ARTICLES-FPA, PHOTOGRAPHER'S ASSISTANT-BC 06/30/2023 Last Documented On 4 1:18PM ; [facility] Lumbar radiculopathy PAIN MANAGEMENT FOL LOW UP with AKIN G VANE SORTER LAUNDRY ARTICLES-FPA, PHOTOGRAPHER'S ASSISTANT-BC 06/30/2023 Last Documented On 4 1:18PM ; [facility] Lumbar spondylosis PAIN MANAGEMENT FOLL OW UP with AKIN Dumont VANE SORTER LAUNDRY ARTICLES-FPA, PHOTOGRAPHER'S ASSISTANT-BC 06/30/2023 Last Documented On 4 1:18PM ; [facility] Lumbar stenosis with neuroge may claudication PAIN MANAGEMENT FOLLOW UP with AKIN Dumont VANE SORTER LAUNDRY ARTICLES-FPA, PHOTOGRAPHER'S ASSISTANT-BC 06/30/2023 Last Documented On 4 1:18PM ; [facility] Morbid obesity PAIN MANAGEMENT FOLL OW UP with AKIN Dumont VANE SORTER LAUNDRY ARTICLES-FPA, PHOTOGRAPHER'S ASSISTANT-BC 06/30/2023 Last Documented On 4 1:18PM ; [facility] Pain in thoracic spine PAIN MANAGEMENT F OLLOW UP with AKIN Dumont VANE SORTER LAUNDRY ARTICLES-FPA, PHOTOGRAPHER'S ASSISTANT-BC 06/30/2023 Last Documented On 4 1:18PM ; [facility] Low back pain * PHONE CALL with AKIN Dumont VANE SORTER LAUNDRY ARTICLES-FPA, PHOTOGRAPHER'S ASSISTANT-BC 05/08/2023 Last Documented On 4 9:09AM ; [facility] Lumbar radiculopathy * PHONE CALL with AKIN Duomnt VANE SORTER LAUNDRY ARTICLES-FPA, PHOTOGRAPHER'S ASSISTANT-BC 05/08/2023 Last Documented On 4 9:09AM ; [facility] Bulging lumbar disc TELEHEALTH with AKIN Dumont KU LP SORTER LAUNDRY ARTICLES-FPA, PHOTOGRAPHER'S ASSISTANT-BC 02/09/2023 Last Documented On 3 9:26AM ; [facility] Cervicalgia TELEHEALTH with AKIN Dumont VANE A PRN-FPA, PHOTOGRAPHER'S ASSISTANT-BC 02/09/2023 Last Documented On 3 9:26AM ; [facility] Chronic pain syndrome TELEHEALTH with AKIN G VANE SORTER LAUNDRY ARTICLES-FPA, PHOTOGRAPHER'S ASSISTANT-BC 02/09/2023 Last Documented On 3 9:26AM ; [facility] Low back pain TELEHEALTH with AKIN Dumont VANE A PRN-FPA, PHOTOGRAPHER'S ASSISTANT-BC 02/09/2023 Last Documented On 3 9:26AM ; [facility] Lumbar radiculopathy TELEHEALTH with AKIN Londono ULP SORTER LAUNDRY ARTICLES-FPA, PHOTOGRAPHER'S ASSISTANT-BC 02/09/2023 Last Documented On 3 9:26AM ; [facility] Lumbar spondylosis TELEHEALTH with AKIN Dumont ARIKL P SORTER LAUNDRY ARTICLES-FPA, PHOTOGRAPHER'S ASSISTANT-BC 02/09/2023 Last Documented On 3 9:26AM ; [facility] Lumbar stenosis with neuroge may claudication TELEHEALTH with AKIN Dumont VANE SORTER LAUNDRY ARTICLES-FPA, PHOTOGRAPHER'S ASSISTANT-BC 02/09/2023 Last Documented On 3 9:26AM ; [facility] Morbid obesity TELEHEALTH with AKIN Dumont VANE A PRN-FPA, PHOTOGRAPHER'S ASSISTANT-BC 02/09/2023 Last Documented On 3 9:26AM ; [facility] Pain in thoracic spine TELEHEALTH with AKIN Dumont VANE SORTER LAUNDRY ARTICLES-FPA, PHOTOGRAPHER'S ASSISTANT-BC 02/09/2023 Last Documented On 3 9:26AM ; [facility] Bulging lumbar disc PAIN MANAGEMENT FOLL OW UP with AKIN Dumont VANE SORTER LAUNDRY ARTICLES-FPA, PHOTOGRAPHER'S ASSISTANT-BC 01/12/2023 Last Documented On 3 11:27AM ; [facility] Cervicalgia PAIN MANAGEMENT FOLLOW UP with Milton Dumont VANE SORTER LAUNDRY ARTICLES-FPA, PHOTOGRAPHER'S ASSISTANT-BC 01/12/2023 Last Documented On 3 11:27AM ; [facility] Chronic pain syndrome PAIN MANAGEMENT FO LLOW UP with AKIN Dumont VANE SORTER LAUNDRY ARTICLES-FPA, PHOTOGRAPHER'S ASSISTANT-BC 01/12/2023 Last Documented On 3 11:27AM ; [facility] Low back pain PAIN MANAGEMENT FOLL OW UP with AKIN Dumont VANE SORTER LAUNDRY ARTICLES-FPA, PHOTOGRAPHER'S ASSISTANT-BC 01/12/2023 Last Documented On 3 11:27AM ; [facility] Lumbar radiculopathy PAIN MANAGEMENT FOL LOW UP with AKIN Julia VANE SORTER LAUNDRY ARTICLES-FPA, PHOTOGRAPHER'S ASSISTANT-BC 01/12/2023 Last Documented On 3 11:27AM ; [facility] Lumbar spondylosis PAIN MANAGEMENT FOLL OW UP with AKIN Julia VANE SORTER LAUNDRY ARTICLES-FPA, PHOTOGRAPHER'S ASSISTANT-BC 01/12/2023 Last Documented On 3 11:27AM ; [facility] Lumbar stenosis with neuroge may claudication PAIN MANAGEMENT FOLLOW UP with AKIN Julia VANE SORTER LAUNDRY ARTICLES-FPA, PHOTOGRAPHER'S ASSISTANT-BC 01/12/2023 Last Documented On 3 11:27AM ; [facility] Morbid obesity PAIN MANAGEMENT FOLL OW UP with AKIN Julia VANE SORTER LAUNDRY ARTICLES-FPA, PHOTOGRAPHER'S ASSISTANT-BC 01/12/2023 Last Documented On 3 11:27AM ; [facility] Pain in thoracic spine PAIN MANAGEMENT F OLLOW UP with AKIN Julia VANE SORTER LAUNDRY ARTICLES-FPA, PHOTOGRAPHER'S ASSISTANT-BC 01/12/2023 Last Documented On 3 11:27AM ; [facility] Bulging lumbar disc PAIN MANAGEMENT FOLL OW UP with AKIN Dumont VANE SORTER LAUNDRY ARTICLES-FPA, PHOTOGRAPHER'S ASSISTANT-BC 11/15/2022 Last Documented On 3 5:29PM ; [facility] Cervicalgia PAIN MANAGEMENT FOLLOW UP with Milton SHARONA Julia VANE SORTER LAUNDRY ARTICLES-FPA, PHOTOGRAPHER'S ASSISTANT-BC 11/15/2022 Last Documented On 3 5:29PM ; [facility] Chronic pain syndrome PAIN MANAGEMENT FO LLOW UP with AKIN Dumont VANE SORTER LAUNDRY ARTICLES-FPA, PHOTOGRAPHER'S ASSISTANT-BC 11/15/2022 Last Documented On 3 5:29PM ; [facility] Low back pain PAIN MANAGEMENT FOLL OW UP with AKIN Dumont VANE SORTER LAUNDRY ARTICLES-FPA, PHOTOGRAPHER'S ASSISTANT-BC 11/15/2022 Last Documented On 3 5:29PM ; [facility] Lumbar radiculopathy PAIN MANAGEMENT FOL LOW UP with AKIN Julia VANE SORTER LAUNDRY ARTICLES-FPA, PHOTOGRAPHER'S ASSISTANT-BC 11/15/2022 Last Documented On 3 5:29PM ; [facility] Lumbar spondylosis PAIN MANAGEMENT FOLL OW UP with AKIN G VANE SORTER LAUNDRY ARTICLES-FPA, PHOTOGRAPHER'S ASSISTANT-BC 11/15/2022 Last Documented On 3 5:29PM ; [facility] Lumbar stenosis with neuroge may claudication PAIN MANAGEMENT FOLLOW UP with AKIN G VANE SORTER LAUNDRY ARTICLES-FPA, PHOTOGRAPHER'S ASSISTANT-BC 11/15/2022 Last Documented On 3 5:29PM ; [facility] Morbid obesity PAIN MANAGEMENT FOLL OW UP with AKIN ELISELP SORTER LAUNDRY ARTICLES-FPA, PHOTOGRAPHER'S ASSISTANT-BC 11/15/2022 Last Documented On 3 5:29PM ; [facility] Pain in thoracic spine PAIN MANAGEMENT F OLLOW UP with AKIN Julia VANE SORTER LAUNDRY ARTICLES-FPA, PHOTOGRAPHER'S ASSISTANT-BC 11/15/2022 Last Documented On 3 5:29PM ; [facility] Bulging lumbar disc PAIN MANAGEMENT FOLL OW UP with AKIN Dumont VANE SORTER LAUNDRY ARTICLES-FPA, PHOTOGRAPHER'S ASSISTANT-BC 09/01/2022 Last Documented On 3 12:27PM ; [facility] Cervicalgia PAIN MANAGEMENT FOLLOW UP with Milton SHARONA Julia VANE SORTER LAUNDRY ARTICLES-FPA, PHOTOGRAPHER'S ASSISTANT-BC 09/01/2022 Last Documented On 3 12:27PM ; [facility] Chronic pain syndrome PAIN MANAGEMENT FO LLOW UP with AKIN ELISELP SORTER LAUNDRY ARTICLES-FPA, PHOTOGRAPHER'S ASSISTANT-BC 09/01/2022 Last Documented On 3 12:27PM ; [facility] Low back pain PAIN MANAGEMENT FOLL OW UP with AKIN ELISELP SORTER LAUNDRY ARTICLES-FPA, PHOTOGRAPHER'S ASSISTANT-BC 09/01/2022 Last Documented On 3 12:27PM ; [facility] Lumbar radiculopathy PAIN MANAGEMENT FOL LOW UP with AKIN Julia VANE SORTER LAUNDRY ARTICLES-FPA, PHOTOGRAPHER'S ASSISTANT-BC 09/01/2022 Last Documented On 3 12:27PM ; [facility] Lumbar spondylosis PAIN MANAGEMENT FOLL OW UP with AKIN Dumont VANE SORTER LAUNDRY ARTICLES-FPA, PHOTOGRAPHER'S ASSISTANT-BC 09/01/2022 Last Documented On 3 12:27PM ; [facility] Lumbar stenosis with neuroge may claudication PAIN MANAGEMENT FOLLOW UP with AKIN G VANE SORTER LAUNDRY ARTICLES-FPA, PHOTOGRAPHER'S ASSISTANT-BC 09/01/2022 Last Documented On 3 12:27PM ; [facility] Morbid obesity PAIN MANAGEMENT FOLL OW UP with AKIN G VANE SORTER LAUNDRY ARTICLES-FPA, PHOTOGRAPHER'S ASSISTANT-BC 09/01/2022 Last Documented On 3 12:27PM ; [facility] Pain in thoracic spine PAIN MANAGEMENT F OLLOW UP with AKIN Julia VANE SORTER LAUNDRY ARTICLES-FPA, PHOTOGRAPHER'S ASSISTANT-BC 09/01/2022 Last Documented On 3 12:27PM ; [facility] Bulging lumbar disc PAIN MANAGEMENT FOLL OW UP with AKIN G VANE SORTER LAUNDRY ARTICLES-FPA, PHOTOGRAPHER'S ASSISTANT-BC 07/20/2022 Last Documented On 3 12:28PM ; [facility] Chronic pain syndrome PAIN MANAGEMENT FO LLOW UP with AKIN G VANE SORTER LAUNDRY ARTICLES-FPA, PHOTOGRAPHER'S ASSISTANT-BC 07/20/2022 Last Documented On 3 12:28PM ; [facility] Low back pain PAIN MANAGEMENT FOLL OW UP with AKIN G VANE SORTER LAUNDRY ARTICLES-FPA, PHOTOGRAPHER'S ASSISTANT-BC 07/20/2022 Last Documented On 3 12:28PM ; [facility] Lumbar radiculopathy PAIN MANAGEMENT FOL LOW UP with AKIN G VANE SORTER LAUNDRY ARTICLES-FPA, PHOTOGRAPHER'S ASSISTANT-BC 07/20/2022 Last Documented On 3 12:28PM ; [facility] Lumbar spondylosis PAIN MANAGEMENT FOLL OW UP with AKIN G VANE SORTER LAUNDRY ARTICLES-FPA, PHOTOGRAPHER'S ASSISTANT-BC 07/20/2022 Last Documented On 3 12:28PM ; [facility] Lumbar stenosis with neuroge may claudication PAIN MANAGEMENT FOLLOW UP with AKIN G VANE SORTER LAUNDRY ARTICLES-FPA, PHOTOGRAPHER'S ASSISTANT-BC 07/20/2022 Last Documented On 3 12:28PM ; [facility] Morbid obesity PAIN MANAGEMENT FOLL OW UP with AKIN G VANE SORTER LAUNDRY ARTICLES-FPA, PHOTOGRAPHER'S ASSISTANT-BC 07/20/2022 Last Documented On 3 12:28PM ; [facility] Bulging lumbar disc TELEHEALTH with AKIN Julia KU LP SORTER LAUNDRY ARTICLES-FPA, PHOTOGRAPHER'S ASSISTANT-BC 06/24/2022 Last Documented On 3 12:00PM ; [facility] Chronic pain syndrome TELEHEALTH with AKIN Julia VANE SORTER LAUNDRY ARTICLES-FPA, PHOTOGRAPHER'S ASSISTANT-BC 06/24/2022 Last Documented On 3 12:00PM ; [facility] Low back pain TELEHEALTH with AKIN ELISELP A PRN-FPA, PHOTOGRAPHER'S ASSISTANT-BC 06/24/2022 Last Documented On 3 12:00PM ; [facility] Lumbar spondylosis TELEHEALTH with AKIN ELISEL P SORTER LAUNDRY ARTICLES-FPA, PHOTOGRAPHER'S ASSISTANT-BC 06/24/2022 Last Documented On 3 12:00PM ; [facility] Lumbar stenosis with neuroge may claudication TELEHEALTH with AKIN Dumont VANE SORTER LAUNDRY ARTICLES-FPA, PHOTOGRAPHER'S ASSISTANT-BC 06/24/2022 Last Documented On 3 12:00PM ; [facility] Morbid obesity TELEHEALTH with AKIN G VANE A PRN-FPA, PHOTOGRAPHER'S ASSISTANT-BC 06/24/2022 Last Documented On 3 12:00PM ; [facility] Bulging lumbar disc TELEHEALTH with CHRIS KOCH OM, MD 03/31/2022 Last Documented On 2 2:54PM ; [facility] Chronic pain syndrome TELEHEALTH with CHIRS RAMOS MD 03/31/2022 Last Documented On 2 2:54PM ; [facility] Low back pain TELEHEALTH with CHRIS Espinoza 03/31/2022 Last Documented On 2 2:54PM ; [facility] Lumbar spondylosis TELEHEALTH with CHRIS LEE MD 03/31/2022 Last Documented On 2 2:54PM ; [facility] Lumbar stenosis with neuroge may claudication TELEHEALTH with CHRIS RAMOS MD 03/31/2022 Last Documented On 2 2:54PM ; [facility] Morbid obesity TELEHEALTH with CHRIS Espinoza 03/31/2022 Last Documented On 2 2:54PM ; [facility] Bulging lumbar disc PAIN MANAGEMENT FOLL OW UP with AKIN G VANE SORTER LAUNDRY ARTICLES-FPA, PHOTOGRAPHER'S ASSISTANT-BC 03/17/2022 Last Documented On 2 8:50AM ; [facility] Chronic pain syndrome PAIN MANAGEMENT FO LLOW UP with AKIN G VANE SORTER LAUNDRY ARTICLES-FPA, PHOTOGRAPHER'S ASSISTANT-BC 03/17/2022 Last Documented On 2 8:50AM ; [facility] Low back pain PAIN MANAGEMENT FOLL OW UP with AKIN Julia VANE SORTER LAUNDRY ARTICLES-FPA, PHOTOGRAPHER'S ASSISTANT-BC 03/17/2022 Last Documented On 2 8:50AM ; [facility] Lumbar spondylosis PAIN MANAGEMENT FOLL OW UP with AKIN G VANE SORTER LAUNDRY ARTICLES-FPA, PHOTOGRAPHER'S ASSISTANT-BC 03/17/2022 Last Documented On 2 8:50AM ; [facility] Lumbar stenosis with neuroge may claudication PAIN MANAGEMENT FOLLOW UP with AKIN G VANE SORTER LAUNDRY ARTICLES-FPA, PHOTOGRAPHER'S ASSISTANT-BC 03/17/2022 Last Documented On 2 8:50AM ; [facility] Morbid obesity PAIN MANAGEMENT FOLL OW UP with AKIN G VANE SORTER LAUNDRY ARTICLES-FPA, PHOTOGRAPHER'S ASSISTANT-BC 03/17/2022 Last Documented On 2 8:50AM ; [facility] Bulging lumbar disc PAIN MANAGEMENT FOLL OW UP with AKIN G VANE SORTER LAUNDRY ARTICLES-FPA, PHOTOGRAPHER'S ASSISTANT-BC 01/11/2022 Last Documented On 2 2:39PM ; [facility] Chronic pain syndrome PAIN MANAGEMENT FO LLOW UP with AKIN G VANE SORTER LAUNDRY ARTICLES-FPA, PHOTOGRAPHER'S ASSISTANT-BC 01/11/2022 Last Documented On 2 2:39PM ; [facility] Low back pain PAIN MANAGEMENT FOLL OW UP with AKIN G VANE SORTER LAUNDRY ARTICLES-FPA, PHOTOGRAPHER'S ASSISTANT-BC 01/11/2022 Last Documented On 2 2:39PM ; [facility] Lumbar spondylosis PAIN MANAGEMENT FOLL OW UP with AKIN G VANE SORTER LAUNDRY ARTICLES-FPA, PHOTOGRAPHER'S ASSISTANT-BC 01/11/2022 Last Documented On 2 2:39PM ; [facility] Lumbar stenosis with neuroge may claudication PAIN MANAGEMENT FOLLOW UP with AKIN G VANE SORTER LAUNDRY ARTICLES-FPA, PHOTOGRAPHER'S ASSISTANT-BC 01/11/2022 Last Documented On 2 2:39PM ; [facility] Morbid obesity PAIN MANAGEMENT FOLL OW UP with AKIN G VANE SORTER LAUNDRY ARTICLES-FPA, PHOTOGRAPHER'S ASSISTANT-BC 01/11/2022 Last Documented On 2 2:39PM ; [facility] Bulging lumbar disc PAIN MANAGEMENT FOLL OW UP with AKIN G VANE SORTER LAUNDRY ARTICLES-FPA, PHOTOGRAPHER'S ASSISTANT-BC 11/30/2021 Last Documented On 2 1:58PM ; [facility] Chronic pain syndrome PAIN MANAGEMENT FO LLOW UP with AKIN Julia VANE SORTER LAUNDRY ARTICLES-FPA, PHOTOGRAPHER'S ASSISTANT-BC 11/30/2021 Last Documented On 2 1:58PM ; [facility] Low back pain PAIN MANAGEMENT FOLL OW UP with AKIN Julia VANE SORTER [employer]UNDRY ARTICLES-FPA, PHOTOGRAPHER'S ASSISTANT-BC 11/30/2021 Last Documented On 2 1:58PM ; [facility] Lumbar spondylosis PAIN MANAGEMENT FOLL OW UP with AKIN Julia VANE SORTER LAUNDRY ARTICLES-FPA, PHOTOGRAPHER'S ASSISTANT-BC 11/30/2021 Last Documented On 2 1:58PM ; [facility] Lumbar stenosis with neuroge may claudication PAIN MANAGEMENT FOLLOW UP with AKIN Julia VANE SORTER [employer]UNDRY ARTICLES-FPA, PHOTOGRAPHER'S ASSISTANT-BC 11/30/2021 Last Documented On 2 1:58PM ; [facility] Morbid obesity PAIN MANAGEMENT FOLL OW UP with AKIN Dumont VANE S[employer]UNDRY ARTICLES-FPA, PHOTOGRAPHER'S ASSISTANT-BC 11/30/2021 Last Documented On 2 1:58PM ; [facility] Bulging lumbar disc PAIN MANAGEMENT NEW CONSULT with AKIN Dumont VANE S[employer] ARTICLES-FPA, PHOTOGRAPHER'S ASSISTANT-BC 10/21/2021 Last Documented On 2 1:55PM ; [facility] Low back pain PAIN MANAGEMENT NEW CONSULT with AKIN Dumont VANE S[employer] ARTICLES-FPA, PHOTOGRAPHER'S ASSISTANT-BC 10/21/2021 Last Documented On 2 1:55PM ; [facility] Lumbar spondylosis PAIN MANAGEMENT NEW CONSULT with AKIN Julia VANE SORTER [employer]UNDRY ARTICLES-FPA, PHOTOGRAPHER'S ASSISTANT-BC 10/21/2021 Last Documented On 2 1:55PM ; [facility] Lumbar stenosis with neuroge may claudication PAIN MANAGEMENT NEW CONSULT with AKIN Julia VANE SORTER LAUNDRY ARTICLES-FPA, PHOTOGRAPHER'S ASSISTANT-BC 10/21/2021 Last Documented On 2 1:55PM ; [facility] Morbid obesity PAIN MANAGEMENT NEW CONSULT with AKIN G VANE SORTER LAUNDRY ARTICLES-FPA, PHOTOGRAPHER'S ASSISTANT-BC 10/21/2021 Last Documented On 2 1:55PM ; [facility] Instructions Includes: Instructions for all patient encounters Education and Decision Aids were provided during visit for: Pill Count: nine Belbuca Last Documented On 4 2:38PM ; [facility] Pill Count: Patient did not bring pain medication to appointment for pill count, per policy. Advised in order to continue to safely prescribe opioids, medication must be brought to each appointment Last Documented On 4 10:03AM ; [facility] Pill Count: 0 Butrans Last Documented On 3 9:10AM ; [facility] Pill Count: 0 Xtampza Last Documented On 3 9:59AM ; [facility] Pill Count: 17 Xtampza Last Documented On 3 8:57AM ; [facility] Pill Count: 18 Xtampza Last Documented On 3 10:45AM ; [facility] Pill Count: twelve Xtampza Last Documented On 3 9:07AM ; [facility] Pill Count: Patient did not bring pain medication to appointment for pill count, per policy. Advised in order to continue to safely prescribe opioids, medication must be brought to each appointment Last Documented On 2 4:25PM ; [facility] Pill Count: 58 Appropriate Last Documented On 2 4:51PM ; [facility] Pill Count: nine Not Appropr iate Xtampza: 2 days short: admits to taking 1 extra not sure where the other 3 pills went: giving him the benefit of the doubt and allowing refill on 03/22: 2 days early this one and only time Last Documented On 2 8:39AM ; [facility] Pill Count: 0 Appropriate Mo rphine 15 ER Last Documented On 2 2:35PM ; [facility] Pill Count: 54 Not Appropria te 12 pills short Last Documented On 2 1:41PM ; [facility] Pill Count: Hydrocodone Last Documented On 2 9:26AM ; [facility] Medical Equipment - Implanted Devices Includes: Current and historical Devices No Medical Equipment Recorded Medications Includes: Current and historical Medications Current Medications (continue as prescribed) Belbuca 150 MCG Buccal Film 10/03/2023 Provider: MACHELLE BUSH Diagnosis: Radiculopathy, l umbar region dissolve 1 film to inside of cheek every 12 hours, be sure to dissolve fully then rinse mouth after Last Documented On 4 10:22AM By AKIN CARTY ; [facility] DULoxetine HCl 60 MG Oral Capsule Delayed Release Particles 08/29/2023 Provider: MACHELLE BUSH Diagnosis: Other spondylosi s, lumbar region TAKE 1 CAPSULE BY MOUTH ELIZABETH Y AT BEDTIME Last Documented On 4 2:56PM By AKIN CARTY ; [facility] Celecoxib 200 MG Oral Capsule 08/29/2023 Provider: MACHELLE BUSH Diagnosis: Other spondylosi s, lumbar region TAKE 1 CAPSULE BY MOUTH ELIZABETH Y WITH A MEAL Last Documented On 4 2:56PM By AKIN CARTY ; [facility] Methocarbamol 750 MG Oral Tablet 08/29/2023 Provider: MACHELLE ADAMS Diagnosis: Other spondylosi s, lumbar region One tablet three times a day Last Documented On 4 2:56PM By AKIN CARTY ; [facility] Narcan 4 MG/0.1ML Nasal Liquid 04/11/2023 Provider: MACHELLE ADAMS Diagnosis: 1 spray intranasally for suspected overdose Last Documented On 3 1:25PM By AKIN CARTY ; [facility] Ziprasidone HCl 40 MG Oral Capsule 11/01/2022 Provid er: Diagnosis: Last Documented On 3 3:28PM By Rebecca ALFREDO ; [facility] lamoTRIgine 100 MG Oral Tablet 08/18/2022 Provider: Diagnosis: Last Documented On 3 12:25PM By AKIN CARTY ; [facility] hydrOXYzine Pamoate 25 MG Oral Capsule 08/18/2022 Pr ovider: Diagnosis: Last Documented On 3 12:25PM By AKIN CIFUENTES [facility] ; [facility] Losartan Potassium 50 MG Oral Tablet 07/14/2022 Prov ider: Diagnosis: Last Documented On 3 12:25PM By AKIN [facility] ; [facility] busPIRone HCl 30 MG Oral Tablet 06/07/2022 Provider: ARIF HABIB Diagnosis: Last Documented On 3 12:25PM By AKIN VANE [facility] ; [facility] Adult Aspirin Regimen 81 MG Oral Tablet Delayed Releas e 10/21/2021 Provider: Diagnosis: Last Documented On 2 10:31AM By AKIN VANE [facility] ; [facility] metFORMIN HCl 500 MG Oral Tablet 10/06/2021 Provider : Diagnosis: Last Documented On 2 10:31AM By AKIN CIFUENTES [facility] ; [facility] Gabapentin 300 MG Oral Capsule 10/06/2021 Provider: Diagnosis: Last Documented On 2 10:31AM By AKIN CIFUENTES [facility] ; [facility] Anoro Ellipta 62.5-25 MCG/IN H Inhalation Aerosol Powder Breath Activated 10/06/2021 Provider: Diagnosis: One puff daily. Last Documented On 2 10:31AM By AKIN CIFUENTES [facility] ; [facility] Carvedilol 6.25 MG Oral Tablet 09/30/2021 Provider: Diagnosis: Last Documented On 2 10:31AM By AKIN CIFUENTES [facility] ; [facility] Furosemide 40 MG Oral Tablet 09/28/2021 Provider: Diagnosis: Last Documented On 2 10:31AM By AKIN VANE [facility] ; [facility] buPROPion HCl ER (XL) 300 MG Oral Tablet Extended Release 24 Hour 09/18/2021 Provider: ARIF HABIB Diagnosis: Last Documented On 2 10:31AM By AKIN CIFUENTES [facility] ; [facility] Ketoconazole 2% External Cream 09/16/2021 Provider: ADDISON DOBSON MD Diagnosis: Apply to affeted area twice a week. Last Documented On 2 10:31AM By AKIN CARTY ; [facility] Albuterol Sulfate (2.5 MG/3M L) 0.083% Inhalation Nebulization solution 09/09/2021 Provider: Diagnosis: Last Documented On 2 10:31AM By AKIN CARTY ; [facility] Potassium Chloride ER 10 MEQ Oral Tablet Extended Rele ase 09/01/2021 Provider: Diagnosis: Last Documented On 2 10:31AM By AKIN CARTY ; [facility] Past Medications on file Belbuca 150 MCG Buccal Film 08/29/2023 - 09/29/2023 Provider: MAHCELLE ADAMS Diagnosis: Radiculopathy, l umbar region dissolve 1 film to inside of cheek every 12 hours, be sure to dissolve fully then rinse mouth after Last Documented On 4 10:16AM By AKIN CARTY ; [facility] Belbuca 150 MCG Buccal Film 07/31/2023 - 08/29/2023 Provider: MACHELLE ADAMS Diagnosis: Radiculopathy, l umbar region dissolve 1 film to inside of cheek every 12 hours, be sure to dissolve fully then rinse mouth after Last Documented On 4 2:49PM By AKIN CARTY ; [facility] DULoxetine HCl 60 MG Oral Capsule Delayed Release Particles 07/03/2023 - 08/29/2023 Provider: MACHELLE ADAMS Diagnosis: Other spondylosi s, lumbar region TAKE 1 CAPSULE BY MOUTH DAILY AT BEDTIME Last Documented On 4 2:51PM By AKIN CARTY ; [facility] Belbuca 150 MCG Buccal Film 07/03/2023 - 07/31/2023 Provider: MACHELLE ADAMS Diagnosis: Radiculopathy, l umbar region dissolve 1 film to inside of cheek every 12 hours, be sure to dissolve fully then rinse mouth after Last Documented On 4 4:15PM By AKIN CARTY ; [facility] Methocarbamol 750 MG Oral Tablet 07/03/2023 - 08/29/2023 Provider: AKIN BANDA [facility] Diagnosis: Other spondylosi s, lumbar region One tablet three times a day Last Documented On 4 2:51PM By AKIN CIFUENTES [facility] ; [facility] Celecoxib 200 MG Oral Capsule 07/03/2023 - 08/29/2023 Provider: AKIN BANDA [facility] Diagnosis: Other spondylosi s, lumbar region TAKE 1 CAPSULE BY MOUTH DAILY WITH A MEAL Last Documented On 4 2:51PM By AKIN CIFUENTES [facility] ; [facility] Belbuca 150 MCG Buccal Film 06/19/2023 - 06/30/2023 Provider: [facility] Diagnosis: Radiculopathy, l umbar region dissolve 1 film to inside of cheek every 12 hours, be sure to dissolve fully then rinse mouth after Last Documented On 4 1:18PM By AKIN CIFUENTES [facility] ; [facility] DULoxetine HCl 60 MG Oral Capsule Delayed Release Particles 06/15/2023 - 06/30/2023 Provider: AKIN BANDA [facility] Diagnosis: Other spondylosi s, lumbar region TAKE 1 CAPSULE BY MOUTH DAILY AT BEDTIME Last Documented On 4 1:12PM By AKIN CIFUENTES [facility] ; [facility] Celecoxib 200 MG Oral Capsule 06/15/2023 - 06/30/2023 Provider: AKIN BANDA [facility] Diagnosis: Other spondylosi s, lumbar region TAKE 1 CAPSULE BY MOUTH DAILY WITH A MEAL Last Documented On 4 1:12PM By AKIN CIFUENTES [facility] ; [facility] Celecoxib 200 MG Oral Capsule 05/25/2023 - 06/15/2023 Provider: [facility] Diagnosis: Other spondylosi s, lumbar region TAKE 1 CAPSULE BY MOUTH DAILY WITH A MEAL Last Documented On 4 8:33AM By AKIN CIFUENTES [facility] ; [facility] DULoxetine HCl 60 MG Oral Capsule Delayed Release Particles 05/25/2023 - 06/15/2023 Provider: VALENCIA BARRIENTOS Diagnosis: Other spondylosi s, lumbar region TAKE 1 CAPSULE BY MOUTH DAILY AT BEDTIME Last Documented On 4 8:33AM [facility] ; [facility] Belbuca 150 MCG Buccal Film 05/17/2023 - 06/19/2023 Provider: VALENCIA BARRIENTOS Diagnosis: Radiculopathy, l umbar region dissolve 1 film to inside of cheek every 12 hours, be sure to dissolve fully then rinse mouth after Last Documented On 4 3:07PM By VALENCIA BARRIENTOS ; [facility] Belbuca 150 MCG Buccal Film 05/08/2023 - 05/17/2023 Provider: AKIN CIFUENTES APRN-BROOKE DELGADO-JÚNIOR Diagnosis: Radiculopathy, l umbar region dissolve 1 film to inside of cheek every 12 hours, be sure to dissolve fully then rinse mouth after Last Documented On 4 2:01PM By VALENCIA BARRIENTOS ; [facility] Belbuca 75 MCG Buccal Film 04/25/2023 - 06/15/2023 Provider: AKIN CIFUENTES APRN-BROOKE DELGADO-JÚNIOR Diagnosis: Radiculopathy, l umbar region dissolve 1 film fully on ins dee of cheek every 12 hours; rinse mouth after Last Documented On 4 8:32AM By AKIN CARTY ; [facility] Belbuca 75 MCG Buccal Film 04/13/2023 - 04/24/2023 Provider: AKIN CIFUENTES APRN-DANNY PHOTOGRAPHER'S ASSISTANT-BC Diagnosis: Radiculopathy, l umbar region dissolve 1 film fully on ins dee of cheek every 12 hours; rinse mouth after Last Documented On 4 11:30AM By AKIN CARTY ; [facility] Morphine Sulfate ER 15 MG Oral Tablet Extended Release 04/11/2023 - 06/15/2023 Provider: AKIN CIFUENTES A RITA-DANNY PHOTOGRAPHER'S ASSISTANT-BC Diagnosis: One tablet twice a day Last Documented On 4 8:32AM By AKIN CARTY ; [facility] Belbuca 75 MCG Buccal Film 04/07/2023 - 04/11/2023 Provider: AKIN Hooks PRGene-BROOKE DELGADO-JÚNIOR Diagnosis: dissolve fully 1 film on ins dee of cheek every 12 hours, rinse mouth after Last Documented On 3 1:13PM By AKIN CARTY ; [facility] Butrans 10 MCG/HR Transdermal Patch Weekly 03/14/2023 - 04/11/2023 Provider: AKIN CIFUENTES APRN-FPBROOKE Hooks-JÚNIOR Diagnosis: Other spondylosi s, lumbar region apply 1 patch every 7 days, be sure to remove the old patch Last Documented On 3 1:13PM By AKIN CARTY ; [facility] Butrans 10 MCG/HR Transdermal Patch Weekly 03/07/2023 - 03/14/2023 Provider: AKIN CIFUENTES APRN-BROOKE DELGADO-JÚNIOR Diagnosis: Other spondylosi s, lumbar region apply 1 patch every 7 days, be sure to remove the old patch Last Documented On 3 4:15PM By AKIN CARTY ; [facility] CeleBREX 200 MG Oral Capsule 02/09/2023 - 05/25/2023 Provider: MACHELLE ADAMS Diagnosis: Other spondylosi s, lumbar region 1 Capsule daily with a meal Last Documented On 4 4:00PM By VALENCIA LOUISJÚNIOR ; [facility] DULoxetine HCl 60 MG Oral Capsule Delayed Release Particles 02/09/2023 - 05/25/2023 Provider: AKIN CIFUENTES APRN-DANNY PHOTOGRAPHER'S ASSISTANT-JÚNIOR Diagnosis: Other spondylosi s, lumbar region 1 capsule daily at bedtime Last Documented On 4 4:00PM By VALENCIA BARRIENTOS ; [facility] Methocarbamol 750 MG Oral Tablet 02/09/2023 - 06/30/2023 Provider: MACHELLE ADAMS Diagnosis: Other spondylosi s, lumbar region One tablet three times a day Last Documented On 4 1:12PM By AKIN COXJÚNIOR ; [facility] Butrans 10 MCG/HR Transdermal Patch Weekly 02/09/2023 - 03/07/2023 Provider: BROOKE ADAMS-BC Diagnosis: Other spondylosi s, lumbar region apply 1 patch every 7 days, be sure to remove the old patch Last Documented On 3 4:43PM By AKIN CARTY ; [facility] Butrans 5 MCG/HR Transdermal Patch Weekly 01/12/2023 - 03/07/2023 Provider: AKIN CIFUENTES APRN-DANNY PHOTOGRAPHER'S ASSISTANT-BC Diagnosis: Other spondylosi s, lumbar region apply 1 patch every 7 days, be sure to remove the old patch Last Documented On 3 4:42PM By AKIN CARTY ; [facility] DULoxetine HCl 60 MG Oral Capsule Delayed Release Particles 11/15/2022 - 02/09/2023 Provider: AKIN BANDA PHOTOGRAPHER'S ASSISTANT-BC Diagnosis: Other spondylosi s, lumbar region 1 capsule daily at bedtime Last Documented On 3 9:20AM By AKIN CARTY ; [facility] CeleBREX 200 MG Oral Capsule 11/15/2022 - 02/09/2023 Provider: AKIN BANDA PHOTOGRAPHER'S ASSISTANT-BC Diagnosis: Other spondylosi s, lumbar region 1 Capsule daily with a meal Last Documented On 3 9:20AM By AKIN CARTY ; [facility] Methocarbamol 750 MG Oral Tablet 11/15/2022 - 02/09/2023 Provider: AKIN CIFUENTES APRN-DANNY PHOTOGRAPHER'S ASSISTANT-BC Diagnosis: Other spondylosi s, lumbar region One tablet three times a day Last Documented On 3 9:20AM By AKIN CARTY ; [facility] CeleBREX 200 MG Oral Capsule 09/01/2022 - 11/15/2022 Provider: AKIN CIFUENTES APRN-DANNY PHOTOGRAPHER'S ASSISTANT-BC Diagnosis: Other spondylosi s, lumbar region 1 Capsule daily with a meal Last Documented On 3 3:54PM By AKIN CARTY ; [facility] DULoxetine HCl 30 MG Oral Capsule Delayed Release Particles 09/01/2022 - 09/19/2022 Provider: MACHELLE ADAMS Diagnosis: Other spondylosi s, lumbar region take 1 capsule at bedtime fo r 1 week then increase to 60mg dose Last Documented On 3 4:41PM By AKIN CARTY ; [facility] Methocarbamol 500 MG Oral Tablet 09/01/2022 - 01/12/2023 Provider: MACHELLE ADAMS Diagnosis: Low back pain, unspecified One tablet three times a day as needed for muscle pain or spasm Last Documented On 3 11:04AM By AKIN CARTY ; [facility] DULoxetine HCl 60 MG Oral Capsule Delayed Release Particles 09/01/2022 - 11/15/2022 Provider: MACHELLE ADAMS Diagnosis: Other spondylosi s, lumbar region 1 capsule daily at bedtime Last Documented On 3 3:54PM By AKIN CARTY ; [facility] oxyCODONE HCl 5 MG Oral Tablet 08/29/2022 - 09/01/2022 Provider: MACHELLE ESCAMILLA Diagnosis: take 1 tablet three times pe r day for 4 days, then two times per day for 4 days, then daily for 4 days, then stop Last Documented On 3 10:00AM By Rebecca ALFREDO ; [facility] lamoTRIgine 25 MG Oral Tablet 08/18/2022 - 01/12/2023 Provider: Diagnosis: Last Documented On 3 11:06AM By Rebecca ALFREDO ; [facility] Xtampza ER 9 MG Oral Capsule ER 12 Hour Abuse-Deterrent 07/28/2022 - 09/01/2022 Provider: MACHELLE ADAMS Diagnosis: Spinal stenosis, lumbar region with neurogenic claudication 1 CAPSULE TWO TIMES A DAY Last Documented On 3 10:00AM By Rebecca ALFREDO ; [facility] CeleBREX 200 MG Oral Capsule 07/20/2022 - 09/01/2022 Provider: MACHELLE ADAMS Diagnosis: Other spondylosi s, lumbar region 1 Capsule daily with a meal Last Documented On 3 12:25PM By AKIN CARTY ; [facility] Methocarbamol 500 MG Oral Tablet 07/20/2022 - 09/01/2022 Provider: AKIN CIFUENTES APRN-RENITA DELGADOBC Diagnosis: Low back pain, unspecified One tablet three times a day as needed for muscle pain or spasm Last Documented On 3 12:25PM By AKIN CARTY ; [facility] Xtampza ER 9 MG Oral Capsule ER 12 Hour Abuse-Deterrent 06/24/2022 - 07/27/2022 Provider: MACHELLE ADAMS Diagnosis: Spinal stenosis, lumbar region with neurogenic claudication 1 CAPSULE TWO TIMES A DAY Last Documented On 3 12:51PM By AKIN CARTY ; [facility] Xtampza ER 9 MG Oral Capsule ER 12 Hour Abuse-Deterrent 05/26/2022 - 06/24/2022 Provider: AKIN CIFUENTES APRN-FPJessee PHOTOGRAPHER'S ASSISTANT-BC Diagnosis: 1 CAPSULE TWO TIMES A DAY Last Documented On 3 9:39AM By AKIN CARTY ; [facility] Xtampza ER 9 MG Oral Capsule ER 12 Hour Abuse-Deterrent 04/26/2022 - 05/26/2022 Provider: AKIN CIFUENTES SORTER LAUNDRY ARTICLES-FPA PHOTOGRAPHER'S ASSISTANT-BC Diagnosis: 1 CAPSULE TWO TIMES A DAY Last Documented On 3 11:19AM By AKIN CARTY ; [facility] Xtampza ER 9 MG Oral Capsule ER 12 Hour Abuse-Deterrent 03/29/2022 - 04/26/2022 Provider: AKIN CIFUENTES APRN-FPA PHOTOGRAPHER'S ASSISTANT-BC Diagnosis: 1 CAPSULE TWO TIMES A DAY Last Documented On 3 12:19PM By AKIN CARTY ; [facility] Xtampza ER 9 MG Oral Capsule ER 12 Hour Abuse-Deterrent 03/28/2022 - 03/28/2022 Provider: MACHELLE ADAMS Diagnosis: Spinal stenosis, lumbar region with neurogenic claudication 1 CAPSULE TWO TIMES A DAY Last Documented On 2 4:31PM By AKIN CARTY ; [facility] Xtampza ER 9 MG Oral Capsule ER 12 Hour Abuse-Deterrent 03/28/2022 - 03/29/2022 Provider: MACHELLE ADAMS Diagnosis: Spinal stenosis, lumbar region with neurogenic claudication 1 CAPSULE TWO TIMES A DAY Last Documented On 2 11:48AM By AKIN CARTY ; [facility] Losartan Potassium 25 MG Oral Tablet 03/17/2022 - 03/19 Provider: Diagnosis: 2 tablets daily Last Documented On 2 8:33AM By AKIN CIFUENTES PHOTOGRAPHER'S ASSISTANTJÚNIOR ; [facility] Xtampza ER 9 MG Oral Capsule ER 12 Hour Abuse-Deterrent 03/17/2022 - 03/25/2022 Provider: MACHELLE ADAMS Diagnosis: Spinal stenosis, lumbar region with neurogenic claudication 1 CAPSULE TWO TIMES A DAY Last Documented On 2 12:26PM By AKIN CARTY ; [facility] Jardiance 10 MG Oral Tablet 02/24/2022 - 07/20/2022 Pr ovider: ANJELICA CALDERON MD Diagnosis: Last Documented On 3 11:07AM By AKIN CARTY ; [facility] Xtampza ER 9 MG Oral Capsule ER 12 Hour Abuse-Deterrent 02/22/2022 - 03/17/2022 Provider: MACHELLE ADAMS Diagnosis: Spinal stenosis, lumbar region with neurogenic claudication 1 CAPSULE TWO TIMES A DAY Last Documented On 2 9:27AM By AKNI CARTY ; [facility] Xtampza ER 9 MG Oral Capsule ER 12 Hour Abuse-Deterrent 01/25/2022 - 02/21/2022 Provider: MACHELLE ADAMS Diagnosis: Spinal stenosis, lumbar region with neurogenic claudication 1 CAPSULE TWO TIMES A DAY Last Documented On 2 8:07AM By AKIN CARTY ; [facility] Xtampza ER 9 MG Oral Capsule ER 12 Hour Abuse-Deterrent 01/11/2022 - 01/25/2022 Provider: MACHELLE ADAMS Diagnosis: Spinal stenosis, lumbar region with neurogenic claudication 1 CAPSULE TWO TIMES A DAY Last Documented On 2 3:48PM By AKIN CARTY ; [facility] Percocet 5-325 MG Oral Tablet 01/11/2022 - 01/25/2022 Provider: MACHELLE ADAMS Diagnosis: Spinal stenosis, lumbar region with neurogenic claudication 1 po q 6 hours prn Last Documented On 2 3:47PM By AKIN CARTY ; [facility] Morphine Sulfate ER 15 MG Oral Tablet Extended Release 12/28/2021 - 01/11/2022 Provider: MACHELLE ADAMS Diagnosis: Spinal stenosis, lumbar region with neurogenic claudication One tablet twice a day Last Documented On 2 2:32PM By AKIN CARTY ; [facility] Percocet 5-325 MG Oral Tablet 12/27/2021 - 01/11/2022 Provider: MACHELLE ADAMS Diagnosis: Spinal stenosis, lumbar region with neurogenic claudication 1 po q 6 hours prn Last Documented On 2 1:34PM By AKIN CARTY ; [facility] Morphine Sulfate ER 10 MG Oral Capsule Extended Release 24 Hour 12/24/2021 - 01/11/2022 Provider: MACHELLE ESCAMILLA Diagnosis: 1 capsule daily Last Documented On 2 1:15PM By AKIN CARTY ; [facility] Percocet 5-325 MG Oral Tablet 12/23/2021 - 12/27/2021 Provider: MACHELLE ADAMS Diagnosis: Spinal stenosis, lumbar region with neurogenic claudication 1 po q 6 hours prn Last Documented On 2 12:28PM By AKIN CIFUENTES [facility] ; [facility] Narcan 4 MG/0.1ML Nasal Liquid 12/22/2021 - 11/15/2022 Provider: AKIN Hooks PRN-FPBROOKE Hooks-JÚNIOR Diagnosis: 1 spray intranasally for suspected overdose Last Documented On 3 3:40PM By AKIN CIFUENTES [facility] ; [facility] Morphine Sulfate ER 10 MG Oral Capsule Extended Release 24 Hour 12/22/2021 - 12/24/2021 Provider: MACHELLE ESCAMILLA Diagnosis: 1 capsule daily Last Documented On 2 4:29PM By AKIN CIFUENTES [facility] ; [facility] Percocet 5-325 MG Oral Tablet 12/15/2021 - 12/21/2021 Provider: VALENCIA JOHNSON [facility]- Diagnosis: Spinal stenosis, lumbar region with neurogenic claudication 1 po q 6 hours prn Last Documented On 2 2:30PM By AKIN CIFUENTES [facility] ; [facility] Narcan 4 MG/0.1ML Nasal Liquid 12/10/2021 - 01/11/2022 Provider: AKIN CHRISTINEN-MACHELLE DELGADO Diagnosis: 1 spray intranasally for suspected overdose Last Documented On 2 1:16PM By AKIN CIFUENTES [facility] ; [facility] Xtampza ER 9 MG Oral Capsule ER 12 Hour Abuse-Deterrent 12/10/2021 - 12/22/2021 Provider: MACHELLE ADAMS Diagnosis: One tablet twice a day with food Last Documented On 2 8:35AM By AKIN CIFUENTES [facility] ; [facility] Percocet 5-325 MG Oral Tablet 11/22/2021 - 12/14/2021 Provider: MACHELLE ADAMS Diagnosis: Spinal stenosis, lumbar region with neurogenic claudication One tablet three times a day as needed for SEVERE pain Last Documented On 2 9:10AM By VALENCIA BARRIENTOS ; [facility] CeleBREX 200 MG Oral Capsule 10/21/2021 - 07/20/2022 Provider: MACHELLE ADAMS Diagnosis: Other spondylosi s, lumbar region 1 Capsule daily with a meal Last Documented On 3 11:22AM By AKIN CARTY ; [facility] Percocet 5-325 MG Oral Tablet 10/21/2021 - 11/22/2021 Provider: MACHELLE ADAMS Diagnosis: Spinal stenosis, lumbar region with neurogenic claudication One tablet three times a day as needed for SEVERE pain Last Documented On 2 11:29AM By AKIN CARTY ; [facility] Methocarbamol 500 MG Oral Tablet 10/21/2021 - 06/25/19 23 Provider: Diagnosis: Last Documented On 3 9:29AM By AKIN CARTY ; [facility] Pantoprazole Sodium 40 MG Oral Packet 10/21/2021 - 08/2022 Provider: Diagnosis: 1 daily. Last Documented On 3 11:07AM By AKIN CARTY ; [facility] Spiriva HandiHaler 18 MCG Inhalation Capsule 2 - 10/21/2021 Provider: Diagnosis: Last Documented On 2 10:26AM By AKIN CARTY ; [facility] Divalproex Sodium ER 500 MG Oral Tablet Extended Release 24 Hour 10/05/2021 - 11/15/2022 Provider: ARIF HABIB Diagnosis: Last Documented On 3 3:48PM By AKIN CARTY ; [facility] traZODone HCl 50 MG Oral Tablet 09/30/2021 - 4 Provider: [facility] Diagnosis: Last Documented On 4 10:03AM By Rebecca ALFREDO ; [facility] Losartan Potassium 25 MG Oral Tablet 09/23/2021 - 12/0 04/2021 Provider: Diagnosis: Last Documented On 2 9:07AM By Rebecca ALFREDO ; [facility] HYDROcodone-Acetaminophen 5-325 MG Oral Tablet 0 09/20/2021 - 11/22/2021 Provider: Diagnosis: 1-2 a day. Last Documented On 2 11:28AM By AKIN CARTY ; [facility] metFORMIN HCl 500 MG Oral Tablet 09/08/2021 - 10/22/19 Provider: Diagnosis: 2 tablets 4 times day. Last Documented On 2 10:26AM By AKIN CARTY ; [facility] Medications Administered Includes: Administered Medications in patient's chart No Administered Medications Recorded Results Includes: Results from 01/18/2024 through 01/17/2025 No Results Recorded For Specified Dates History of Present Illness History of Present Illness not supported for this document type No History of Present Illness Recorded Social History Description Last Updated Former smoker 10/21/2021 Last Documented On 2 1:55PM ; [facility] Difficulty walking 10/21/2021 Last Documented On 2 1:55PM ; [facility] No consumption of alcohol 10/21/2021 Last Documented On 2 1:55PM ; [facility] Not using drugs 10/21/2021 Last Documented On 2 1:55PM ; [facility] Smoking Status Unknown Procedures and Surgical History Surgical History Last Updated No Pacemaker 10/21/2021 Last Documented On 2 1:55PM ; [facility] Medical History Includes: Medical History in patient's chart Description Last Updated Has had a fall in the last 12 months. Last Documented On 4 1:18PM ; [facility] Has a fear of falling. 07/20/2022 Last Documented On 3 12:28PM ; [facility] Uses a cane for support Has motorized wh eelchair 11/30/2021 Last Documented On 2 1:58PM ; [facility] Currently wearing eyeglasses 10/21/2021 Last Documented On 2 1:55PM ; [facility] No Pain Pump 10/21/2021 Last Documented On 2 1:55PM ; [facility] No Spinal cord stimulator 10/21/2021 Last Documented On 2 1:55PM ; [facility] Family History Includes: Family History in patient's chart Description Last Updated Other family history , please specify: 0 10/21/2021 Last Documented On 2 1:55PM ; [facility] Review of Systems Review of Systems not supported for this document type No Review of Systems Recorded Mental Status No Mental Status Recorded Functional Status No Functional Status Recorded Physical Exam Physical Exam not supported for this document type No Physical Exam Recorded Allergies Includes: Active, inactive, and resolved Allergies Substance Type Reaction Onset Date Resolved Date Statu s Penicillins Allergy 10/21/2021 Active Last Documented On 4 2:38PM ; [facility] Insurance Includes: Active Insurance Policies Plan Name Member ID Group # Subscriber Relationship Effect gael Dates 1 - [facility] PL[facility] [id number] RAZA Lawson Clinical Notes Includes: Signed Clinical Notes starting from 05/06/2022 No Clinical Notes Recorded
--- OUTSIDE RECORDS SUMMARY | 2025-01-17 19:55 | XMS_ITS | Clinical Summary ---
Author Organization [facility] Address [address] [place] [address] Care Team Providers Care Superintendent Power Name Role Phone Felicia Ramos PA-C Primary Care Provider + Source Comments [facility],non-owned Affiliates and Associated Physician Practices is amultiple site organization consisting of ambulatory clinics and hospital sitesin [place], [place], [place] and [place]. This disclosure is being madepursuant to the Care Everywhere program and may not contain all information available regarding this patient. Last updated 18.[facility] Active Problems Problem Noted Date Diagnosed Date CHF (congestive heart failure) 01/06/2022 Overview (01/06/2022): p Social History Tobacco Use Types Packs/Day Years Used Date Smoking Tobacco: Never Assessed Sex and Gender Information Value Date Recorded Sex Assigned at Not on file Legal Sex Male 5:52 PM [employer] Gender Identity Not on file Sexual Orientation [...] of 3 - 19+ 3-dose series) 1996 DEPRESSION SCREENING 04/17/2024 COVID-19 VACCINE (2023-2 5 season) 2024 INFLUENZA VACCINE (#1) 2024 ZOSTER VACCINE (1 of 2) 2027 [...] age to complete this topic Insurance MEDICAID Care Teams Superintendent Power Relationship Specialty Start Date End Date Felicia Ramos PA-C [address] [place], [place] [id number] PCP - General 03/22/19
--- OUTSIDE RECORDS SUMMARY | 2025-01-17 19:55 | XMS_ITS | Data Portability ---
Author Organization [place] - [facility], Main Office Address [address] [place] [address] Assessment Encounter Date Assessment Date Assessment LastModified by Organization Details LastModified Time 09/10/2024 09/10/2024 This note is dictated and transcribed by [employer]. 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 Despite proofreading, typographical errors may occur. Occasional wrong-word or 'fwyby-w-kuiy' substitutions may have occurred due to the inherent limitations of voice recording. Read the chart carefully and recognize, using context, where substitutions have occurred. Not available 09/10/2024 14:13:51 10/03/2024 10/03/2024 This note is dictated and transcribed by [employer]. 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 Despite proofreading, typographical errors may occur. Occasional wrong-word or 'ujzjl-s-malg' substitutions may have occurred due to the inherent limitations of voice recording. Read the chart carefully and recognize, using context, where substitutions have occurred. Not available 10/03/2024 11:27:46 11/26/2024 11/26/2024 This note is dictated and transcribed by [employer]. 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 Despite proofreading, typographical errors may occur. Occasional wrong-word or 'gyerp-b-yvnk' substitutions may have occurred due to the inherent limitations of voice recording. Read the chart carefully and recognize, using context, where substitutions have occurred. Not available 11/26/2024 15:27:05 12/10/2024 12/10/2024 This note is dictated and transcribed by [employer]. 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 Despite proofreading, typographical errors may occur. Occasional wrong-word or 'vodxc-a-xegj' substitutions may have occurred due to the inherent limitations of voice recording. Read the chart carefully and recognize, using context, where substitutions have occurred. Not available 12/10/2024 12:42:15 Plan of Treatment Reminders Order Date Submit Date Provider Last Modified By Organization Details Last Modified Time Details Appointments Procedur e 60 2024 08:00A M Ana María Herrera MD Not available Not available Not available Establis hed Patient 15 2024 03:00P M Jorge Cohen DPM Not available Not available Not available Any 15 2024 01:30P M Louie Jacinto MD Not available Not available Not available Lab None recorded . Referral None recorded . Procedures colonosc opy screenin g (PROC) 2024 025 [email or web address] [facility] (Pre-Screen), [address] [place], [address], 01/15/2025 07:56:03 Surgeries None recorded . Imaging None recorded . Medication Orders Golytely 236 gram-22. 74 gram-6.7 4 gram-5.8 6 gram oral solution 2024 025 [email or web address] 1 [facility][id number], [id number] , [place], [place], [id number], 12/18/2024 15:43:53 Patient TargetsNo targets recorded. Patient Instructions Encounter Date Encounter Id Patient Instructions Last Modified By Organization Details Last Modified Time 12/18/2024 [id number] cardiac clearance* [email or web address] Not availa ble 12/25/2024 08:02:15 GOLYTELY [email or web address] Not available 06/2024 15:06:00 PT NEEDS A SCREENING COLON . R/O POLYP . RECOMMEND A COLONOSOPY . . Risks benefits and complications were explained to the pt. ( BLEEDING PERFORATION , INFECTION , ). PT VERBALIZES UNDERSTANDING AND IS WILLING TO PROCEDE . [email or web address] Not available 12/18/2024 15:06:13 Reason for Referral None Reported. Problems Name Problem SNOMED Code Status Onset Date Resolution Date Notes Provider Name and Address Organization Details Recorded Time Morbid obesity 736408788 Active 2020 Not Available [facility] 3 19:28:56 Osteoarthr itis of right knee joint 4119845823488 00 Active 2020 Not Available [facility] 3 19:28:57 Plantar fasciitis of right foot 9390049209668 9101 Active 2021 Not Available [facility] 3 19:28:56 Diabetes mellitus 87028398 Active 2021 Not Available [facility] 3 19:28:57 Gout 51050464 Active 2021 Not Available [facility] 3 19:28:57 Peroneal tendinitis of right lower limb 6985868191416 09 Active 2021 Not Available [facility] 3 19:28:57 Posterior rhinorrhea 07087444 Active 2022 Louie Jacinto MD [address], [address], [place], [address] , [employer] [facility] [facility] 3 12:13:53 Tinea pedis 2271968 Active 2022 Jorge Cohen DPM [address], [address], [place], [address] , [employer] [facility] [employer] [facility] 3 15:25:55 Asthma-chr onic obstructiv e pulmonary disease overlap syndrome 3698997012262 9107 Active 2023 Louie Jacinto MD [address], [address], [place], [address] , [employer] [facility] [facility] 4 14:55:24 Abscess of toe of right foot 4912179094581 9109 Active 2024 Jorge Cohen DPM [address], [address], [place], [address] , [employer] [facility] [employer] [facility] 5 16:35:44 Cellulitis of toe of right foot Active 2024 Jorge Cohen DPM [address], [address], [place], [address] , [employer] [facility] [employer] [facility] 16:35:55 Paronychia of toe of right foot 8782021101345 9102 Active 2024 Jorge Cohen DPM [address], [place], [address] , [facility] [employer] [facility] 5 16:36:03 Pain of toe of right foot 2532066608165 01 Active 2024 Jorge Cohen DPM [address], [address], [place], [address] , [facility] [employer] [facility] 5 16:36:16 Diabetic skin disorder Active 2024 Jorge Cohen DPM [address], [place], [address] , [facility] [employer] [facility] 5 16:37:54 Dystrophia unguium 33578564 Active 2024 Jorge Cohen DPM [address], [address], [address] , [facility] [employer] [facility] 5 14:13:58 Unable to perform personal care activity 007277185 Active 2024 Jorge Cohen DPM [address], [place] [address], [place], [address] , [facility] [employer] [facility] 5 14:14:27 Ingrowing toenail 268480558 Active 2024 Jorge Cohen DPM [address], [address], [place], [address] , [facility] [employer] [facility] 5 11:27:56 Congestive heart failure 90744396 Active 2024 SAYDA Montero, [facility] [employer] [facility] 5 15:22:13 Notes:Medical History: Bipol ar depression/Anxiety Bilateral hearing loss COVID infections 03/2020, 10/2021 Rhinitis with postnasal drip to multiple environmental allergens IgE 825 IU/mL Eosinophils 160/uL AAT PiMM 155 mg% Mod ACO Granulomatous lung disease Obesity with MORGAN and mild restrictive airflow impairment on AVAPS for chronic hypercarbic respiratory failure c/o [employer] Severe LVE Mild LAE Mild MR/HI/TR PASP 37 mmHg Hypertension EF 50% Hyperlipidemia T2DM with neuropathy Atrial fibrillation HFpEF since 04/2021 c/o Dr. Minesh OVALLE Umbilical hernia Hepatic steatosis Cholelithiasis Vit D deficiency Thoracic DDD Dextroscoliosis Gout Procedure History: T&A 1990 Left inguinal herniorrhaphy 2016 Problem Notes None recorded. Procedures Surgical History Date Name Laterality Status Provider Name and Address Organization Details Recorded Time 12/11/19 25 Partial Nail Avulsion Chemical Matrixectomy-Righ t completed Jorge Cohen DPM [address], [address], [place], [address], [employer] 12/10/2024 12:40:53 10/04/19 25 Nail Debridement completed Jorge Cohen DPM [address], [address], [place], [address], [employer] 10/03/2024 11:27:04 09/11/19 25 Nail Debridement completed Jorge Cohen DPM [address], [address], [place], [address], [employer] 09/10/2024 14:13:46 08/30/19 25 Abscess Drainage completed Jorge Cohen DPM [address], [place], [address], [employer] 08/29/2024 16:35:29 01/16/20 24 Nail Debridement completed Jorge Cohen DPM [address], [place], [address], [employer] [facility] 01/16/2024 13:39:40 Tonsillectomy completed Not Available [facility] 06/15/2022 19:28:19 Hernia Repair completed Not Available [facility] 06/15/2022 19:28:19 Cardiac Cath completed Not Available [facility] 06/15/2022 19:28:19 Cardiac Cath completed Not Available [facility] 06/15/2022 19:28:19 Imaging Results None recorded. Procedure Notes None recorded. Medical Equipment None Reported. Allergies Allergen ID Allergen Name Allergen Category Reaction Reaction Severity Criticality Documentation Date Start Date Code Code System Note Provider Name and Address Organization Details Recorded Time 38179 Product containin g penicilli n (product) medicatio n Not available Not available Not available 06/15/2022 13628 8001 SNOMED Not Available [facility] 3 19:30:00 Medications Name Sig Start Date Stop [...] completed Not Available Not Available Not Available ipratropium 0.5 mg-albutero l 3 mg (2.5 mg base)/3 mL nebulizatio n soln USE 1 VIAL VIA NEBULIZER FOUR TIMES DAILY active Not Available Not Available No t Available clindamycin HCl 300 mg capsule TAKE [...] Not Available Not Available Not Available famotidine 40 mg tablet TAKE 1 TABLET BY MOUTH AT BEDTIME active Not Available Not Available No t Available prednisone 20 mg tablet TAKE 2 [...] MOUTH EVERY 12 HOURS FOR 1 WEEK active Not Available Not Available No t Available peg-electro lyte solution 420 gram oral solution 03/14 completed Not Available Not Available Not Available omeprazole 40 mg capsule,del ayed release TAKE 1 CAPSULE BY MOUTH AT BEDTIME active Not Available Not Available No t Available aspirin 81 mg tablet,jax yed release [...] HFA 90 mcg/actuati on aerosol inhaler INHALE 2 PUFFS BY MOUTH EVERY 6 TO 8 HOURS NEEDED active Not Available Not Available [...] Not Available doxycycline hyclate 100 mg tablet TAKE 1 TABLET BY MOUTH TWICE DAILY FOR 10 DAYS active Not Available Not Available No t Available lamotrigine 100 mg tablet TAKE 1 [...] HFA 115 mcg-21 mcg/actuati on aerosol inhaler INHALE 2 PUFFS BY MOUTH TWICE DAILY active Not Available Not Available No t Available budesonide- formoterol HFA 160 mcg-4.5 mcg/actuati on aerosol inhaler INHALE 2 PUFFS BY MOUTH TWICE DAILY active Not Available Not Available No t Available peg 3350-electr olytes 236 gram-22.74 gram-6.74 gram-5.86 gram solution TAKE DIRECTED active Not Available Not Available No t Available Lantus Solostar U-100 Insulin 100 unit/mL (3 mL) subcutaneou s pen ADMINISTE R 50 UNITS UNDER THE SKIN AT BEDTIME active [...] Not Available Not Available No t Available Droplet Pen Needle 31 gauge x /16 USE DIRECTED active Not Available Not Available No t Available Xtampza ER 9 mg capsule sprinkle TAKE 1 CAPSULE BY MOUTH TWICE DAILY 09/07 completed Not Available Not Available Not Available TRUEplus Pen Needle 31 gauge x 3/16 02/08 completed Not Available Not Available Not Available Accu-Chek Guide Glucose Meter USE DIRECTED active Not Available Not Available No t Available Fiasp U-100 Insulin 100 unit/mL subcutaneou s solution USE PER SLINDING SCALE active Not Available Not Available No t Available OneTouch Delica Plus Lancet 33 gauge CHECK EVERY MORNING active Not Available Not Available No t Available OneTouch Delica Plus Lancet 30 gauge USE DIRECTED active Not Available Not Available No t Available Gvoke HypoPen 2-Pack 1 mg/0.2 mL [...] R 1 MG UNDER THE SKIN WEEKLY 12/18 completed Not Available Not Available Not Available Mounjaro 5 mg/0.5 mL subcutaneou s pen injector ADMINISTE R 5 MG UNDER THE SKIN WEEKLY active Not Available Not Available No t Available Mounjaro 2.5 mg/0.5 mL subcutaneou s pen injector ADMINISTE R 2.5 MG UNDER THE SKIN WEEKLY FOR 4 WEEKS 12/18 completed Not Available Not Available Not Available Vitals Date Recorded Body height Body mass index (BMI) Body weight Heart rate Body temperature Oxygen saturation Oxygen saturation in Arterial blood by Pulse oximetry Systolic And Diastolic Provider Name and Address Organization Details Last Updated DateTime 182.88 cm 54.2 kg/m2 395777. 95 g 91 /min 98.4 [degF] 93 % 93 % 116/71 mm[Hg] Michele Nam [facility] [employer] [facility] 5 14:03:43 Date Recorded Body height Body mass index (BMI) Body weight Body temperature Oxygen saturation Oxygen saturation in Arterial blood by Pulse oximetry Heart rate Systolic And Diastolic Provider Name and Address Organization Details Last Updated DateTime 5 182.88 cm 54.2 kg/m2 962205. 95 g 97.7 [degF] 94 % 94 % 104 /min 135/83 mm[Hg] Michele Neelykenrick [facility] [employer] [facility] 5 11:04:12 Date Recorded Body height Body mass index (BMI) Body weight Provider Name and Address Organization Details Last Updated DateTime 11/26/2024 182.88 cm 54.2 kg/m2 974305.95 g Felicia Coleman [facility] [employer] [facility] 11/26/2024 14:01:50 Date Recorded Body height Body mass index (BMI) Body weight Heart rate Respiratory rate Oxygen saturation Oxygen saturation in Arterial blood by Pulse oximetry Provider Name and Address Organization Details Last Updated DateTime 5 182.88 cm 54.2 kg/m2 304933. 95 g 99 /min 18 /min 97 % 97 % Felicia Coleman [facility] [employer] [facility] 5 11:39:51 Date Recorded Body height Body mass index (BMI) Body weight Heart rate Oxygen saturation Oxygen saturation in Arterial blood by Pulse oximetry Systolic And Diastolic Provider Name and Address Organization Details Last Updated DateTime 5 182.88 cm 56.1 kg/m2 177874. 24 g 96 /min 96 % 96 % 138/80 mm[Hg] Juany Price [facility] [employer] [facility] 5 15:06:11 Social History Question Answer Notes LastModified by Organizat ion Details LastModified Time Tobacco Smoking Status Former Smoker MARJORIE Trujillo, [facility] [employer] 09/07/2022 12:01:34 What Is Your Level Of Caffeine Consumption? Heavy Information not available 05/25/2023 In The 14 Days Before Symptom Onset, Have You Had Close Contact With A Laboratory-confir med COVID-19 While That Case Was Ill? No MIGRATION.[id number] [id number] Information not available 06/15/2022 In The 14 Days Before Symptom Onset, Have You Had Close Contact With A Person Who Is Under Investigation For COVID-19 While That Person Was Ill? No MIGRATION.15731 87227 Information not available 06/15/2022 What Type Of Diet Are You Following? DIABETIC Low Sodium/diab etic/gout Diet MIGRATION.46416 22462 Information not available 06/15/2022 Do You Have An Electrostatic Air Filter? No MIGRATION.47544 65647 Information not available 06/15/2022 When Did You Quit Smoking? 1-5yearssinc elastcigaret te Information not available 05/25/2023 Are There Any Guns Present In Your Home? No MIGRATION.16499 80598 Information not available 06/15/2022 Do You Have A Humidifier? Yes MIGRATION.73014 73423 Information not available 06/15/2022 Where Do You Live? [place] MIGRATION.82462 26825 Information not available 06/15/2022 Do You Have Moisture Problems In Your Home? No MIGRATION.59915 92354 Information not available 06/15/2022 What Was The Date Of Your Most Recent Tobacco Screening? 10/03/2024 [email or web address] Information not available 10/03/2024 Have You Ever Been Counseled For Unhealthy Alcohol Use? No MIGRATION.83602 44602 Information not available 06/15/2022 Do You Have Any Pets? Yes MIGRATION.32322 10582 Information not available 06/15/2022 Do You Use Your Seat Belt Or Car Seat Routinely? Yes [email or web address] Information not available 09/07/2022 Do You Have Smoke And Carbon Monoxide Detectors In Your Home? Yes MIGRATION.48995 86944 Information not available 06/15/2022 At What Age Did You Start Smoking Tobacco? 14 Information not available 05/25/2023 Are You Passively Exposed To Smoke? Yes Outside MIGRATION.31922 21568 Information not available 06/15/2022 Do You Use Sunscreen Routinely? No MIGRATION.73729 20282 Information not available 06/15/2022 Has Tobacco Cessation Counseling Been Provided? No MIGRATION.10517 20041 Information not available 06/15/2022 How Many Years Have You Smoked Tobacco? 20 Information not available 05/25/2023 Have You Recently Traveled Abroad? No MIGRATION.86970 26260 Information not available 06/15/2022 Do You Have Any Dietary Restrictions? No MIGRATION.46093 62940 Information not available 06/15/2022 Sex: Unknown Functional Status Question Answer Note LastModified by Organizat ion Details LastModified Time Do you use any illicit or recreational drugs? No MIGRATION.580769 0743 Information not available 06/15/2022 Do you or have you ever used any other forms of tobacco or nicotine? No MIGRATION.133104 0693 Information not available 06/15/2022 What is your level of alcohol consumption? Occasional MIGRATION.886534 5930 Information not available 06/15/2022 Have you been exposed to chemicals or toxins? not that aware of Information not available 05/25/2023 Mental Status Question Answer Note LastModified by Organization D etails LastModified Time Do you feel stressed (tense, restless, nervous, or anxious, or unable to sleep at night)? [id number] Information not available 05/25/2023 Family History Relationship Description Onset Age of this Age Resolved Age Notes LastModified by Organization Details LastModified Time Father Heart disease MIGRATION.322 [id number] Not available 06/15/2022 19:28:20 Father Hypertensive disorder MIGRATION.769 [id number] Not available 06/15/2022 19:28:20 Father Diabetes mellitus MIGRATION.219 [id number] Not available 06/15/2022 19:28:20 Father Arthritis MIGRATION.322 [id number] Not available 06/15/2022 19:28:20 Father Coronary artery bypass graft MIGRATION.826 [id number] Not available 06/15/2022 19:28:20 Brother Diabetes mellitus MIGRATION.869 [id number] Not available 06/15/2022 19:28:20 Medical History Condition Response HEADACHES/MIGRAINES Y USE OF BLOOD THINNERS Y HEART DISEASE/HEART PROBLEMS Y SKIN PROBLEMS Y DIABETES, TYPE Y LUNG DISEASE/DISORDER Y COPD Y OBESITY Y ASTHMA Y GOUT Y BACK / NECK PROBLEMS Y DEPRESSION (INCLUDING POST ) Y Past Encounters Encounter ID Performer Location Encounter Start Date Encounter Closed Date Diagnosis/Indication Diagnosis SNOMED-CT Code Diagnosis ICD10 Code Diagnosis IMO Codes Diagnosis Note [id number] Eugenio Prather MD [facility] [address] [place] [address] 03/30/2021 00:00:00 03/30/2021 10:27:54 [id number] Eugenio Prather MD [facility] [address] [place] [address] 05/11/2021 00:00:00 05/11/2021 10:46:15 [id number] Jorge Choen DPM [facility] [address] [address] 05/17/2021 00:00:00 05/17/2021 19:30:11 [id number] Jorge Cohen DPM [facility] [address] 06/07/2021 00:00:00 06/07/2021 09:45:09 [id number] Jorge Cohen DPM [facility] [address] [address] 07/12/2021 00:00:00 07/12/2021 11:54:23 [id number] Troy chang MD [facility] [address] [place] [address] 07/15/2021 00:00:00 07/15/2021 14:18:09 [id number] Troy chang MD [facility] [address] [place] [address] 1 08/31/2021 00:00:00 08/31/2021 14:38:43 [id number] Jorge Cohen DPM [facility] [address] 09/09/2021 00:00:00 09/09/2021 10:06:50 [id number] Jorge Cohen DPM [facility] [address] [address] 09/16/2021 00:00:00 09/16/2021 09:46:04 [id number] Jorge Cohen DPM [facility] [address] [address] 10/21/2021 00:00:00 10/21/2021 15:01:41 [id number] Louie Jacinto MD [facility] [address] [address] 02/15/2022 00:00:00 02/23/2022 12:17:29 [id number] MD TACHO Perez[facility] [address] [address] 03/14/2022 00:00:00 04/28/2022 14:49:33 [id number] MD LEXIE PerezS[facility] [address] [address] 09/07/2022 11:41:33 09/08/2022 08:29:46 Moderate persistent asthma 560299956 J45.40 Posterior rhinorrhea 758 72201 R09.82 [id number] GRACY Mckeon[facility] [address] [address] 11/17/2022 15:04:20 11/17/2022 15:50:37 Tinea pedis 1601331 B35.3 Bilateral feetPatien t is to soak in warm Epsom salt soaks math for approximat latisha 20 min daily for 5-7 days until infection has resolved. Patient is to dress the wound daily with topical antibiotic ointment and Band-Aid. Patient to monitor for signs of infection, if worsens seek medical attention at the nearest ER.Follow- up in 2 weeks [id number] Jorge Cohen DPM [facility] [place] [address] [place] [address] 12/08/2022 12:02:40 12/08/2022 14:09:05 Tinea pedis 9158376 B35.3 Bilateral feetimprov ingwash feet daily with Hibiclens until skin is normal non peelingref ill ketoconazo lefollow-u p in 2 weeks if continues to be problemati c [id number] Louie Jacinto MD [facility] [address] [place] [address] 05/25/2023 12:21:49 05/26/2023 08:21:22 Moderate persistent asthma 882771861 J45.40 Posterior rhinorrhea 758 16713 R09.82 [id number] MD TACHO Perez[facility] [address] [place] [address] 0 01/11/2024 10:26:48 01/11/2024 15:13:26 Moderate persistent asthma 915735081 J45.40 Posterior rhinorrhea 758 51568 R09.82 [id number] Jorge Cohen DPM [facility] [address] [place] [address] 01/16/2024 12:10:40 01/19/2024 10:51:05 Diabetes mellitus 74147081 E11.9 continue diabetic control per PCP recommenda tion Morbid obesity 070455842 E66.01 recommend weight loss Dystrophia unguium 49564 009 L60.3 Nails 1 through 10 were debrided with sharp mechanical debridemen t without incident. Nails were debrided and greater than 50% length and thickness where needed. Unable to cut own toenails 558950536 Z74.1 Secondary to COPD [id number] Louie Jacinto MD [facility] [address] [place] [address] 04/11/2024 14:09:27 04/26/2024 15:19:23 Posterior rhinorrhea 06880076 R09.82 Asthma-chr onic obstructive pulmonary disease overlap syndrome 2232472892 5024492 J44.9 [id number] Jorge Cohen DPM [facility] [address] [address] 08/29/2024 16:06:11 09/16/2024 12:19:51 Abscess of toe of right foot 4746063183 4605590 L02.611 [id number] I&D abscess right great toe-- 08/29/2024 Cellulitis of toe of right foot 3704452029 L03.031 [id number] patient finished a round of doxycyclin e-- started on 07/09/2024 for 10 days Paronychia of toe of right foot 5868711081 9843065 L03.031 55449431 [facility] care[facility] for worsening signs of infection at present seek medical attention immediatel y Pain of to e of right foot 9935392982 92091 M79.674 [id number] secondary to above Diabetic s kin disorder 7333050029 E11.628 Z79.4 27108814 recommend tight glucose control to prevent worsening of infection [id number] Jorge Cohen DPM [facility] [place] [address] [address] 09/10/2024 13:54:13 09/11/2024 09:32:49 Abscess of toe of right foot 6331863623 0305156 L02.611 [id number] resolved Dystrophia unguium 17359 009 L60.3 1009 Nails 1 through 10 were debrided with sharp mechanical debridemen t without incident. Nails were debrided and greater than 50% length and thickness where needed.fol low-up 3 months as needed Unable to perform personal care activity 666055249 Z78.9 [id number] secondary to COPD and morbid obesity [id number] Jorge Cohen DPM [facility] [place] [address] [address] 10/03/2024 10:59:44 10/07/2024 07:59:47 Ingrowing toenail 021835881 L60.0 1001 right great toepartial nail debridemen twound care dailyFollo w-up in 1 month- if infection continues follow-up in 1 week [id number] Jorge Cohen DPM [facility] [place] [address] [address] 11/26/2024 13:59:25 11/27/2024 16:30:52 Paronychia of toe of right foot [id number] L03.031 [id number] partial nail avulsion Healed- no further signs of infectionp atient will need to be scheduled for partial matrixecto myfinished oral antibiotic sreturn for procedure right great toe lateral nail corner [id number] Jorge Cohen DPM [facility] [place] [address] [facility] [address] [place] [address] 12/10/2024 11:31:08 12/12/2024 12:01:20 Ingrowing toenail [id number] L60.0 1001 right great toepartial matrixecto my performed todayMonit or for signs of infection present seek medical attention immediatel ywound care dailydaily dressings reviewed with the patientFol low-up in 2 weeks [id number] Ana María Herrera MD [facility] General Surgery [address] [facility] [address] [place] [address] 12/18/2024 14:43:01 12/18/2024 15:33:56 Screening for malignant neoplasm of colon [id number] Z12.11 [id number] Congestive heart failure [id number] I50.9 [id number] Health Concerns Section Related Observation LastModified by Organization Detai ls LastModified Time None Recorded Concern Status LastModified by Organization Details LastModified Time None Recorded Advance Directives Directive None Recorded Payers Insurance Date Sequence Insurance Name Policy Number Policy Tesfaye Covered Member ID Tesfaye Member ID Guarantor Name 02/25/2024 2 UNSPECIFIED REMIT PAYOR Jerzy Leahy 12/18/2024 1 [place] Jerzy Leahy [id number] Jerzy Leahy 12/18/2024 1 [facility] (MEDICARE REPLACEMENT HMO) Jerzy Leahy [id number] Jerzy Leahy 12/18/2024 2 [place] Jerzy Leahy [id number] Jerzy Leahy 12/18/2024 3 [facility] PRIOR TO 11/15/2024 (MEDICAID REPLACEMENT - HMO) [id number] Kane Leahy [id number] Jerzy Leahy 12/30/2024 1 [employer] (MEDICARE REPLACEMENT/A DVANTAGE - PPO) [id number] Jerzy Leahy [id number] Jerzy Leahy 12/26/2024 2 [place] [facility] PUBLIC AID Kane Leahy [id number] Jerzy Leahy Notes Date Note Type Note Provider Name and Address Organization Details Recorded Time 09/10/2024 text/html ROS as noted in the HPI . Patient is a 49-year-old male who returns for follow-up on paronychia of the right great toenail he underwent a partial nail avulsion the infection has resolved. Patient denies any further drainage pain or redness. Patient finished his oral antibiotics. Patient denies any fever, chills, nausea or vomiting. Jorge Cohen DPM [address], [place], [address], [employer] 09/10/2024 14:15:19 10/03/2024 text/html . Patient is a 49-year-old male who returns the office for continued issues with the right great toe. Patient states the ingrown toenail has re-grown and causing pain. Patient states he has redness and discomfort with weight-bearing. Patient states there has been some drainage. Patient denies any other complaints. Patient denies any fever, chills, nausea or vomiting. Jorge Cohen DPM [address], [place], [address], [employer] 10/03/2024 11:29:53 11/26/2024 text/html . Patient is a 49-year-old male who returns the office for follow-up on ingrown toenail of the right great toe lateral corner he has resolve all of the infection he denies any recurrent pain he will require a partial matrixectomy of the nail corner. Patient denies any other complaints. Patient denies any fever, chills, nausea or vomiting. Jorge Cohen DPM [address], [place], [address], [employer] 11/26/2024 15:41:41 12/10/2024 text/html . Patient is a 49-year-old male who returns the office for follow-up on ingrown toenail of the right great toe without infection. Patient is here for partial matrixectomy. Patient denies any other complaints. Jorge Cohen DPM [address], [facility] [address], [place], [address], [facility] [employer] [facility] 12/10/2024 13:28:31 12/18/2024 text/html ROS as noted in the HPI PT WAS SEEN IN THE OFFICE TODAY FOR COLON SCREENING . PT DENIES ABD PAIN /N/V/ /WT LOSS. PT HAS COPD/CHF. PT REPORTS LOOSE STOOLS 4-5X DAILY OCCASSIONAL BLEEDING . Ana María Herrera MD [address], [facility] [address], [place], [address], [facility] [employer] [facility] 12/18/2024 15:26:01
--- OUTSIDE RECORDS SUMMARY | 2025-01-17 19:55 | XMS_ITS | Clinical Summary ---
Author Organization [facility] Address [address] [place] [address] Phone Care Team Providers Care Mems Device Scientist Name Role Phone Marilee Vale MD Primary Care Provider [phone] Aravind Coelho MD Unavailable Allergies Active Allergy Reactions Criticality Noted Date Comments Dog Fennel Allergy Skin Test Rash,Itching Low 06/28 Cats Penicillins Hives,Rash,Itching High 06/28/2024 Medications fluticasone (FLONASE) 50 MCG/ACT Suspension 1 [place] by Nasal route daily. Use in each [...] mg by mouth daily. Active Glucose Blood (Huddleuch Ultra Blue Test) Strip by In Vitro route. Use as directed Active triamcinolone (KENALOG) 0.1 % Cream Apply 2 times daily. Application Site: bottom of right foot twice daily (Description and Location) Active nystatin (MYCOSTATIN) 036185 UNIT/GM Cream Apply 3 times daily. Application Site: affected area (Description and Location) Active Glucagon (Gvoke HypoPen 2-Pack) 1 MG/0.2ML Solution Auto-injector by Subcutaneous route. Active Insulin Pen Needle (TRUEplus Pen [place]) 31G X 5 MM Misc by Does [...] with long-term current use of insulin 06/28/2024 Family History Relation Name Status Comments Mother Social History Tobacco Use Types Packs/Day Years Used Date Smoking Tobacco: Never Smokeless Tobacco: Never Tobacco Cessation:Counseling Given: No Alcohol Use Standard Drinks/Week Comments Not Currently 0 (1 standard drink = 0.6 oz pur e alcohol) 2x year [facility] Utilities Answer Date Recorded In the past 12 months has th e [employer], gas, oil, or water [employer] threatened to shut off services in your [...] any time in the past 12 m [facility], were you homeless or living in a assisted (including now)? No 08/28/2024 Sexually Active Control [...] of 3 - 19+ 3-dose series) 1996 Cologuard 2022 Colonoscopy 2022 Colorectal Cancer Screening 2022 Immunochemical Fecal Occult Blood 2022 Welcome to Medicare (IPPE) [id number] 04/17/2024 Influenza Immunization (#1) 2024 11/2 09/2020, 01/28/2021, 04/21/2012 SARS-COV-2 Immunization ( season) 2024 Diabetes: Hemoglobin A1c 12/29/2024 025, 08/30/2020 Diabetes: [...] of insulin (HCC) from Last 3 Months or Most Recently Relevant to Health Maintenance Results * (ABNORMAL) POCT GLYCOSYLATED HEMOGLOBIN (06/28/2024 10:21 AM CDT) HGB-A1C 9.1(A) 4 - 6 % Blood 06/28/2024 10:2 1 AM CDT Aravind Coelho MD POINT OF CARE TESTING (MANUAL) F inal Result from Last 3 Months or Most Recently Relevant to Health Maintenance Insurance MEDICAID [place] MEDICARE C [employer] Care Teams Mems Device Scientist Relationship Specialty Start Date End Date Marilee Vale MD [address] [place] [address] PCP - General Family Medicine 11/06/23 Aravind Coelho MD [address] [address] Consulting Physician Endocrinology 06/28/24
--- OUTSIDE RECORDS SUMMARY | 2025-01-17 19:55 | XMS_ITS | Clinical Summary ---
Author Organization [employer] [address] Address [address] [place] [address] Care Team Providers Care Conservation Scientist Name Role Phone Unavailable Primary Care Provider Unavailabl e Medications aspirin (MICHELLE CHEWABLE) 81 mg Tablet, ChewableIndications :Hyperlipidemia, unspecified hyperlipidemia type Take 1 Tablet (81 mg) by mouth daily. 90 Tablet 4 Active atorvastatin (LIPITOR) 20 mg tabletIndications:T ype 2 diabetes mellitus with hyperglycemia, without long-term current use of insulin,Hyperlipide higinio, unspecified hyperlipidemia type Take 1 Tablet (20 [...] hyperglycemia, without long-term current use of insulin Take 1 Tablet (500 mg) by mouth 3 times daily with meals. 270 Tablet 4 Active potassium chloride (KLOR-CON M10) 10 mEq Extended Release tabletIndications:E enedelia of both lower legs Take 1 Tablet (10 mEq) by mouth 2 times daily. 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
--- OUTSIDE RECORDS SUMMARY | 2025-01-17 19:55 | XMS_ITS | Clinical Summary ---
Author Organization [facility] Address [address] [place] [address] Phone Care Team Providers Care Biomass Plant Technician Name Role Phone AUNDREA OLGUIN, LI Unavailable [phone] YASH SALEH Primary Care Provider [phone] NICK NELSON Unavailable [phone] ANJELICA CALDERON MD Unavailable [phone] Reason for Visit and Chief Complaint * PHONE CALL Problems Includes: Problems addressed during this encounter and other active Problems All Visits Onset Date Resolved Date Provider Condition S tatus Anxiety Disorder Nos Unknown AKIN Dumont VANE BENCH MANAGER-FPA, IRON WORKER APPRENTICE-BC Active Last Documented On 2 10:55AM ; [facility] Bipolar I Disorder Unknown AKIN Dumont VANE AP RN-FPA, IRON WORKER APPRENTICE-BC Active Last Documented On 2 10:55AM ; [facility] Congestive Heart Failure Unknown AKIN Dumont K ULP BENCH MANAGER-FPA, IRON WORKER APPRENTICE-BC Active Last Documented On 2 10:27AM ; [facility] Fatty Liver Unknown AKIN Dumont VANE BENCH MANAGER-FPA, IRON WORKER APPRENTICE-BC Active Last Documented On 2 10:54AM ; [facility] Chronic Obstructive Pulmonar y Disease Unknown AKIN Dumont VANE BENCH MANAGER-FPA, IRON WORKER APPRENTICE-BC Active Last Documented On 2 10:28AM ; [facility] Diabetes Mellitus Unknown AKIN Dumont VANE APR N-FPA, IRON WORKER APPRENTICE-BC Active Last Documented On 2 10:27AM ; [facility] Gout Unknown AKIN CIFUENTES BENCH MANAGER-FPA, IRON WORKER APPRENTICE-BC Active Last Documented On 2 10:56AM ; [facility] Essential Hypertension Unknown AKIN RAZA P BENCH MANAGER-FPA, IRON WORKER APPRENTICE-BC Active Last Documented On 2 10:55AM ; [facility] Obesity Morbid Unknown AKIN CIFUENTES BENCH MANAGER-F PA, IRON WORKER APPRENTICE-BC Active Last Documented On 2 10:28AM ; [facility] Plan of Treatment Pending Tests Order Diagnosis Results Due Ordering P rovider Lab Panel 6 w/ med match [id number] 07/14/23 AKIN ELISELP BENCH MANAGER- FPA, IRON WORKER APPRENTICE-BC Last Documented On 4 1:18PM ; [facility] Lab Buprenorphine with confirmation-[id number] 07/14/23 AKIN CIFUENTES BENCH MANAGER-FPA, IRON WORKER APPRENTICE-BC Last Documented On 4 1:18PM ; [facility] Therapy - Physical Therapy Physical Therapy Other spondylosis, lumbar region 08/29/23 AKIN CIFUENTES BENCH MANAGER-FPA, IRON WORKER APPRENTICE-BC Last Documented On 4 3:32PM ; [facility] Assessments Includes: Assessments from this encounter Findings - [M54.6 - Pain in thoracic spine] Pain in thoracic spine - Last Documented On 09/26/2023 10:29AM ; [facility] 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 that I have been seeing this patient in our pain management clinic. He has done greater than six weeks of physical therapy July-September 2023 but continues to have some significant pain at times. PT has been helpful. However, pain interferes with his ADLs. He would like to proceed with MRI imaging and consideration of interventional procedures to further evaluate and treat his pain. I would like to consider him for possible medical branch blocks with progression to thermal RFA if appropriate response for spondylosis. R/O other underlying pathology. - Last Documented On 09/26/2023 10:29AM ; [facility] Medical Equipment - Implanted Devices Includes: Current Devices No Medical Equipment Recorded Medications Includes: Medications discussed during this encounter and other current Medications Current Medications (continue as prescribed) Belbuca 150 MCG Buccal Film 10/03/2023 Provider: AKIN MACHELLE KESSLER Diagnosis: Radiculopathy, l umbar region dissolve 1 film to inside of cheek every 12 hours, be sure to dissolve fully then rinse mouth after Last Documented On 4 10:22AM By AKIN CARTY ; [facility] DULoxetine HCl 60 MG Oral Capsule Delayed Release Particles 08/29/2023 Provider: MACHELLE BUSH Diagnosis: Other spondylosi s, lumbar region TAKE 1 CAPSULE BY MOUTH ELIZABETH Y AT BEDTIME Last Documented On 4 2:56PM By AKIN CARTY ; [facility] Celecoxib 200 MG Oral Capsule 08/29/2023 Provider: MACHELLE BUSH Diagnosis: Other spondylosi s, lumbar region TAKE 1 CAPSULE BY MOUTH ELIZABETH Y WITH A MEAL Last Documented On 4 2:56PM By AKIN CARTY ; [facility] Methocarbamol 750 MG Oral Tablet 08/29/2023 Provider: MACHELLE ADAMS Diagnosis: Other spondylosi s, lumbar region One tablet three times a day Last Documented On 4 2:56PM By AKIN CARTY ; [facility] Narcan 4 MG/0.1ML Nasal Liquid 04/11/2023 Provider: MACHELLE ADAMS Diagnosis: 1 spray intranasally for suspected overdose Last Documented On 3 1:25PM By AKIN CARTY ; [facility] Ziprasidone HCl 40 MG Oral Capsule 11/01/2022 Provid er: Diagnosis: Last Documented On 3 3:28PM By Rebecca ALFREDO ; [facility] lamoTRIgine 100 MG Oral Tablet 08/18/2022 Provider: Diagnosis: Last Documented On 3 12:25PM By AKIN CARTY ; [facility] hydrOXYzine Pamoate 25 MG Oral Capsule 08/18/2022 Pr ovider: Diagnosis: Last Documented On 3 12:25PM By AKIN CARTY ; [facility] Losartan Potassium 50 MG Oral Tablet 07/14/2022 Prov ider: Diagnosis: Last Documented On 3 12:25PM By AKIN VANE [facility] ; [facility] busPIRone HCl 30 MG Oral Tablet 06/07/2022 Provider: ARIF HABIB Diagnosis: Last Documented On 3 12:25PM By AKIN VANE [facility] ; [facility] Adult Aspirin Regimen 81 MG Oral Tablet Delayed Releas e 10/21/2021 Provider: Diagnosis: Last Documented On 2 10:31AM By AKIN VANE [facility] ; [facility] metFORMIN HCl 500 MG Oral Tablet 10/06/2021 Provider : Diagnosis: Last Documented On 2 10:31AM By AKIN [place] [facility] ; [facility] Gabapentin 300 MG Oral Capsule 10/06/2021 Provider: Diagnosis: Last Documented On 2 10:31AM By AKIN VANE [facility] ; [facility] Anoro Ellipta 62.5-25 MCG/IN H Inhalation Aerosol Powder Breath Activated 10/06/2021 Provider: Diagnosis: One puff daily. Last Documented On 2 10:31AM By AKIN VANE [facility] ; [facility] Carvedilol 6.25 MG Oral Tablet 09/30/2021 Provider: Diagnosis: Last Documented On 2 10:31AM By AKIN CIFUENTES [facility] ; [facility] Furosemide 40 MG Oral Tablet 09/28/2021 Provider: Diagnosis: Last Documented On 2 10:31AM By AKIN CIFUENTES [facility] ; [facility] buPROPion HCl ER (XL) 300 MG Oral Tablet Extended Release 24 Hour 09/18/2021 Provider: ARIF HABIB Diagnosis: Last Documented On 2 10:31AM By AKIN VANE [facility] ; [facility] Ketoconazole 2% External Cream 09/16/2021 Provider: ADDISON DOBSON MD Diagnosis: Apply to affeted area twice a week. Last Documented On 2 10:31AM By AKIN CIFUENTES [facility] ; [facility] Albuterol Sulfate (2.5 MG/3M L) 0.083% Inhalation Nebulization solution 09/09/2021 Provider: Diagnosis: Last Documented On 2 10:31AM By AKIN CARTY ; [facility] Potassium Chloride ER 10 MEQ Oral Tablet Extended Rele ase 09/01/2021 Provider: Diagnosis: Last Documented On 2 10:31AM By AKIN CARTY ; [facility] Past Medications on file Losartan Potassium 25 MG Oral Tablet 03/17/2022 - 03/19 Provider: Diagnosis: 2 tablets daily Last Documented On 2 8:33AM By AKIN CARTY ; [facility] Medications Administered Includes: Administered Medications from this encounter No Administered Medications Recorded Results Includes: Results discussed during this encounter No Results Recorded For Specified Dates History of Present Illness Includes: History of Present Illness from this encounter No History of Present Illness Recorded Social History Description Last Updated Former smoker 10/21/2021 Last Documented On 4 10:16AM ; [facility] Difficulty walking 10/21/2021 Last Documented On 4 10:16AM ; [facility] No consumption of alcohol 10/21/2021 Last Documented On 4 10:16AM ; [facility] Not using drugs 10/21/2021 Last Documented On 4 10:16AM ; [facility] Smoking Status Unknown Procedures and Surgical History Surgical History Last Updated No Pacemaker 10/21/2021 Last Documented On 4 10:16AM ; [facility] Medical History Includes: Medical History addressed during this encounter Description Last Updated Has had a fall in the last 12 months. Last Documented On 4 10:16AM ; [facility] Has a fear of falling. 07/20/2022 Last Documented On 4 10:16AM ; [facility] Uses a cane for support Has motorized wh eelchair 11/30/2021 Last Documented On 4 10:16AM ; [facility] Currently wearing eyeglasses 10/21/2021 Last Documented On 4 10:16AM ; [facility] No Pain Pump 10/21/2021 Last Documented On 4 10:16AM ; [facility] No Spinal cord stimulator 10/21/2021 Last Documented On 4 10:16AM ; [facility] Family History Includes: Family History addressed during this encounter Description Last Updated Other family history , please specify: 0 10/21/2021 Last Documented On 4 10:16AM ; [facility] Review of Systems Includes: Review of [...] Active Last Documented On 4 2:38PM ; [facility] Encounters Encounter Provider Location Date Check-In Time Check-Out Time Diagnosis * PHONE CALL AKIN BANDA, MACHELLE 4 10:16AM 11:59PM Dorsopathy Dorsalgia Pain in Thoracic Spine Insurance Includes: Active Insurance Policies Plan Name Member ID Group # Subscriber Relationship Effect gael Dates 1 - [facility] PLANS [id number] RAZA Lawson Clinical Notes Includes: Clinical Notes from this encounter * Progress note Date Encounter Last Documented by 09/26/2023 * PHONE CALL Last documented on 10/02/2023; 2:42 PM, AKIN CIFUENTES APRN-DANNY, BROOKE-JÚNIOR; [facility] Active Problems & Conditions - Anxiety Disorder Nos - Bipolar I Disorder - Chronic Obstructive Pulmonary Disease - Congestive Heart Failure - Diabetes Mellitus - Essential Hypertension - Fatty Liver - Gout - Obesity Morbid Chief Complaint Phone Call - Chief Concern: reason for call: Patient needs MRIi order sent to [facility] in [place] [address], [place] [address] pt phone # for return call: date/initials: 09/26/2023 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 Current Medication - Adult Aspirin Regimen 81 [...] History Other family history , please specify: Assessment - [M54.6 - Pain in thoracic spine] Pain in thoracic spine 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 that I have been seeing this patient in our pain management clinic. He has done greater than six weeks of physical therapy July-September 2023 but continues to have some significant pain at times. PT has been helpful. However, pain interferes with his ADLs. He would like to proceed with MRI imaging and consideration of interventional procedures to further evaluate and treat his pain. I would like to consider him for possible medical branch blocks with progression to thermal RFA if appropriate response for spondylosis. R/O other underlying pathology. Plan StartCited - Pain in thoracic spine Radiology @ other/MRI: MRI Thoracic w/o contrast Instructions: [facility] [address], [place] [address] EndCited Care Team - ANJELICA CALDERON MD - Cardiovascular Disease - LI GUILLAUME MD - Pulmonary Disease - JAMILAH ZAPIEN - Primary Care - NICK NELSON - Psychiatric/Mental Health Health Reminders - Assess Tobacco Use satisfied 09/26/2023.
--- OUTSIDE RECORDS SUMMARY | 2025-01-17 19:55 | XMS_ITS ---
Author Organization [facility] Address [address] [place] [address] Phone Care Team Providers Care Technology Teacher Name Role Phone Marilee Vale MD Primary Care Provider [phone] Aravind Coelho MD Unavailable Juan [facility] Service Episode Status:Identified (Enrolling) Start date:08/28/2024 Related program episode:Juan Chronic Condition Monitoring (Active) Continued Care and Services Coordination
--- OUTSIDE RECORDS SUMMARY | 2025-01-17 19:55 | XMS_ITS | Patient Health Record ---
Author Organization [facility] Address [address] [place] [address] Care Team Providers Care Senior Instrumentation Engineer Name Role Phone Brittonervin Ray Primary Care Provider [phone] Allergies Allergen (clinical drug ingredient) Drug/Non Drug Allergy documented on EMR Reaction Allergy Type Onset Date Status Penicillin Unknown Drug Allergy Active Reason For Referral No Information Medications Medication SIG (Take, Route, Frequency, Duration) Notes Start Date End Date Status Furosemide 40 MG 1 tablet Orally Once a day; Duration: 30 day(s) Active Carvedilol 12.5 MG 1 tablet with food Orally Twice a day; Duration: 30 day(s) Active Losartan Potassium 25 MG 1 tablet Orally Once a day; Duration: 30 day(s) Active busPIRone HCl 30 MG 1 tablet Orally Twic e a day; Duration: 30 days Active Depakote ER 500 MG 1 tablet Orally Once a day; Duration: 30 day(s) Active buPROPion HCl ER (XL) 300 MG 1 tablet in the morning Orally Once a day; Duration: 30 days Active traZODone HCl 50 MG 1 tablet at bedtime as needed Orally Once a day; Duration: 30 days Active Albuterol Sulfate HFA 108 (90 Base) MCG/ACT 1 puff as needed Inhalation every 4 hrs Active metOLazone 10 MG 1 tablet Orally Once a day; Duration: 30 day(s) Not-Jose ing metFORMIN HCl 500 MG 1 tablet with [...] W/U Status Risk Notes Problem Major depression ([id number]) Major depression (F32.9) Active confirmed Plan Of Treatment No Information Insurance Providers Payer Name Payer Address Payer Phone Subscriber Number Group Number Insured Name Patient Relationship to Insured Coverage Start Date Coverage End Date [facility] Plan [address] [place] [address] [id number] Jerzy Rizvi Self - patient is the insured 1 [facility] Telehealth [address] [place] [address] [id number] 2 Jerzy Rizvi Self - patient is the insured 1 Medical (General) History Medical History History ICD Code CHF Diabetes COPD Asthma Chronic Back pain Surgical History Surgery Date(Month/Year) Tonsilectomy Hernia repair Cardiac Cath Injections in back Hospitalization History Reason Date(Month/Year) Urgent care busy for left ear in fection 06/06/2022 [facility] for breathing issues Feb [address]22 [facility] left leg swollen and infected. Jan 2022 COVID 10/2021 [facility] for gout in rig ht foot May 2021 [facility] Feb 2021
[2025-01-17] MEDS: MORPHINE SULFATE (*CRX) 4 MG/ML INJ IV PUSH ×2 (20:33→23:44)
[2025-01-17] MEDS: METOCLOPRAMIDE HCL INJ 10 MG/2 ML VIAL IV PUSH (20:34)
[2025-01-17] MEDS: IPRATROPIUM 0.5 MG/ALBUTEROL SULFATE 2.5 MG (BASE) AMPUL.NEB 3 ML INHALATION ×2 (20:45→23:29)
--- NOTE | 2025-01-17 21:30 | ECG_ITS ---
Test Date: 2025-01-17 18:42:02 Measurements Intervals [place] Rate: 96 P: 91 [place]: 207 QRS: 12 QRSD: 98 T: 44 QT: 331 QTc: 420 Interpretive Statements SINUS RHYTHM LOW QRS VOLTAGE IN PRECORDIAL LEADS VOLTAGE CRITERIA FOR LVH ST ELEVATION IN ANTEROLAT/INF LEADS- PROBABLY EARLY REPOLARIZATION BASELINE ARTIFACT- I, II, III, AVR, AVL, AVF, V3-V6 BORDERLINE ECG Compared to ECG 02/25/2024 11:47:39 NO SIGNIFICANT CHANGE Electronically Signed On 01-18-2025 06:52:28 CDT by César Swanson D.O.
[2025-01-17] MEDS: FUROSEMIDE INJ 40 MG/4 ML VIAL IV PUSH (21:52)
[2025-01-17] MEDS: POTASSIUM CHLORIDE 20 MEQ ER TABLET 40 MEQ PO (21:52)
[2025-01-17 22:00] LABS: Troponin I < 0.012 ng/mL (0.000-0.034)
[2025-01-17 22:13] LABS: NT Pro B Type Natriuretic Pept 75 pg/mL (19.9-100)
[2025-01-18] VITALS (22 sets, daily range): BP systolic 113–167; BP diastolic 70–77; PULSE 58–109; RESP 18–28; TEMP 36.4–37.2; O2SAT 94–100; BMI 56.0
[2025-01-18 01:36] LABS: Influenza A QL RT-PCR Negative (Negative); Influenza B QL RT-PCR Negative (Negative); RSV RNA, RT-PCR Negative (Negative); SARS-CoV-2 RNA PCR Negative (Negative)
--- NOTE | 2025-01-18 02:27 | ADMGEN ---
This patient, Jerzy Leahy, was admitted to Medical Room 251-. Patient/family oriented to hospital policies and general routines including ID bracelet, bed and alarms, visiting hours, pain management, procedures, bathroom and other care routines, personal items, smoking policy, room service/diet, and visiting hours. Information on how to activate the Rapid Response Team has been discussed. Patient/Family are encouraged to report perceived risks to care and to ask questions if they do not understand what they are told or what they should do.
[2025-01-18] MEDS: MORPHINE SULFATE (*CRX) 2 MG/ML INJ IV PUSH ×6 (03:09→17:02)
--- NOTE | 2025-01-18 03:58 | PM.IMHP ---
H&P: HPI History of Present Illness Date/Time: 01/18/25 03:58 Chief Complaint: Chest pressure Narrative: This is the obese 49-year-old male patient who has a history of COPD, CHF, myocardial infarction, hypertension and asthma. The patient typically gets his care at [facility]. However today he came to was due to the shortness of breath. The patient denies any fever or chills. He also complained of chest pain or chest pressure. Chest x-ray was read as interstitial pulmonary edema and/or pneumonitis. Chest/abdomen/pelvis CTA was read as no acute cardiopulmonary findings. No acute abdominal pelvic findings. Hepatomegaly with steatosis. His white count is 10.9 is H&H is 13.5 and 41.1. Sodium was 135. Anion gap is 13. His blood sugars 214. Troponins are negative x2. BNP is 75. Viral serologies are negative. The patient was given a neb treatment in the emergency room, Benadryl, Lasix, Solu-Medrol, Reglan, and morphine in the emergency room. The patient is being admitted to observation status on the date of service of 01/18/2025 Review of Systems Constitutional: Constitutional: Reports as per HPI and Reports no additional constitutional complaints Eyes: Eyes: Reports as per HPI and Reports no additional eye complaints ENT: Reports system reviewed and no additional complaints, except as documented and Reports Normal hearing present Cardiovascular: Cardiovascular: Reports no additional cardiovascular complaints Respiratory: Respiratory: Reports as per HPI and Reports no additional respiratory complaints Gastrointestinal: Gastrointestinal: Reports as per HPI and Reports no additional gastrointestinal complaints Musculoskeletal: Musculoskeletal: Reports no additional musculoskeletal complaints Integumentary/Breasts: Skin/Breast: Reports system reviewed and no additional complaints, except as docu Neurologic: Reports system reviewed and no additional complaints, except as documented and Reports Normal hearing present Psychiatric: Psychiatric: Reports no additional psychiatric complaints and Reports as per HPI Hematologic/Lymphatic: Hematologic/Lymphatic: Reports no additional hematologic/lymphatic complaints Allergic/Immunologic: Allergic/Immunologic: Reports no additional allergic/immunologic complaints [facility] Past Medical History Medical History Anemia of chronic disease Heart failure with preserved ejection fraction echo pain 04/05/2020 showed a severely enlarged left ventricular chamber with an EF at the low end of normal estimated 50 to 55%, abnormal diastolic function, and mild pulmonary hypertension Dyslipidemia Anxiety and depression Gastroesophageal reflux disease Obstructive sleep apnea Type 2 diabetes mellitus Chronic obstructive pulmonary disease Obesity hypoventilation syndrome Chronic respiratory failure with hypoxia and hypercapnia he is on p.r.n. oxygen during the day and uses a trilogy unit with at nighttime Tobacco abuse Hypertension Surgical History Surgical History History of hernia repair History of cardiac catheterization no intervention x3. The last 1 was around 2022. History of tonsillectomy Family History Family History Father Diabetes mellitus Other Acute myocardial infarction Social History Social History Social History: He has 4 daughters and he is disabled. Surrogate medical decision maker: Candie Leahy, . Code status: Full code. Smoking packs per day: 1.5 Smoking cigarettes per day: 30.0 Years smoked: 25 Smoking pack-years: 37.50 Smoking status: Former smoker Tobacco type: cigarettes Second hand tobacco smoke exposure: No Smoking end date: 04/17/21 Alcohol intake: former Alcohol use details: rarely Substance use: never Substance use type: marijuana Last use: last used marijuana a week ago Do You Feel Safe in your Home?: Yes Lack of Transportation: No Lack of Food: Never True Current Housing: I Have Housing Concerned About Future Housing: No Difficulty Paying Gas/Electric Bills: No Difficulty Paying for Meds: No Currently Unemployed: No Education: Trade/Vocational Certificate Difficulty w/ Childcare or Family Care: No Living arrangements: with family Spiritual care concerns: No Meds Home Medications and Allergies Home Medications ?Medication ?Instructions ?Recorded ?Confirmed ?Type carvedilol 6.25 mg tablet 6.25 mg PO BID 10/18/20 01/18/25 History albuterol sulfate 1.25 mg/3 mL 2.5 mg inhalation Q4H PRN 04/13/21 01/18/25 History solution for nebulization Shortness Of Breath albuterol sulfate 90 mcg/actuation 2 puff inhalation Q6-8H PRN 10/22/23 01/18/25 History aerosol inhaler shortness of breath or wheezing azelastine 137 mcg (0.1 %) nasal 137 mcg intranasal BID 10/22/23 01/18/25 History spray furosemide 40 mg tablet (Lasix) 40 mg PO BID 10/22/23 01/18/25 History ziprasidone HCl 60 mg capsule 60 mg PO BID 10/22/23 01/18/25 History aspirin 81 mg tablet,delayed 81 mg PO DAILY 02/25/24 01/18/25 History release hydroxyzine pamoate 50 mg capsule 50 mg PO BID PRN Anxiety 02/25/24 01/18/25 History buspirone 30 mg tablet 30 mg PO BID 03/25/24 01/18/25 History glucagon 1 mg/0.2 mL subcutaneous 1 mg (0.2 mL) subcut ONCE #0.4 mL 05/29/24 01/18/25 Rx auto-injector (Danielito Delaneyen 2-Pack) ostomy supplies (Skin Prep Wipes) #50 ea 05/29/24 01/18/25 Rx tirzepatide 7.5 mg/0.5 mL 7.5 mg (0.5 mL) subcut WEEKLY #6 mL 12/31/24 01/18/25 Rx subcutaneous pen injector (Heath) atorvastatin 80 mg tablet 80 mg PO DAILY 01/18/25 01/18/25 History bupropion HCl 300 mg 24 hr tablet, 300 mg PO DAILY 01/18/25 01/18/25 History extended release buspirone 10 mg tablet 10 mg PO TID 01/18/25 01/18/25 History doxycycline hyclate 100 mg tablet 100 mg PO BIDWM 01/18/25 01/18/25 History empagliflozin 25 mg tablet 25 mg PO DAILY 01/18/25 01/18/25 History (Jardiance) famotidine 40 mg tablet 40 mg PO HS 01/18/25 01/18/25 History fluticasone propionate 115 2 puff inhalation BID 01/18/25 01/18/25 History mcg-salmeterol 21 mcg/actuation HFA inhaler (Advair HFA) fluticasone propionate 50 1 spray intranasal DAILY 01/18/25 01/18/25 History mcg/actuation nasal spray,suspension gabapentin 300 mg capsule 300 mg PO QID 01/18/25 01/18/25 History insulin glargine 100 unit/mL (3 50 unit subcut HS 01/18/25 01/18/25 History mL) subcutaneous pen (Lantus Solostar U-100 Insulin) ipratropium 0.5 mg-albuterol 3 mg 3 ml inhalation QID 01/18/25 01/18/25 History (2.5 mg base)/3 mL nebulization soln lamotrigine 200 mg tablet 200 mg PO BID 01/18/25 01/18/25 History losartan 50 mg tablet 50 mg PO BID 01/18/25 01/18/25 History metformin 500 mg tablet 500 mg PO BID 01/18/25 01/18/25 History metformin 500 mg tablet,extended 1,000 mg PO BID 01/18/25 01/18/25 History release 24 hr (Glucophage XR) omeprazole 40 mg capsule,delayed 40 mg PO HS 01/18/25 01/18/25 History release peg 3350-electrolytes 236 ml 01/18/25 History gram-22.74 gram-6.74 gram-5.86 gram solution tirzepatide 2.5 mg/0.5 mL 2.5 mg subcut WEEKLY 01/18/25 01/18/25 History subcutaneous pen injector (Mounjaro) tirzepatide 5 mg/0.5 mL 5 mg subcut WEEKLY 01/18/25 01/18/25 History subcutaneous pen injector (Mounjaro) ziprasidone HCl 40 mg capsule 40 mg PO HS 01/18/25 01/18/25 History Allergies Allergy/AdvReac Type Severity Reaction Status Date / Time Penicillins Allergy Mild Hives Verified 01/17/25 18:42 Vital Signs Vital Signs - 24 hr 01/17/25 18:38 01/17/25 18:41 01/17/25 19:30 Temperature Pulse Rate 94 100 Respiratory Rate 18 Blood Pressure 176/98 H Pulse Oximetry 98 Oxygen Delivery Room Air Room Air 01/17/25 19:40 01/17/25 20:00 01/17/25 20:49 Temperature Pulse Rate 90 92 83 Respiratory Rate 24 H 28 H 16 Blood Pressure 150/72 H 160/108 H Pulse Oximetry 98 97 Oxygen Delivery 01/17/25 21:07 01/17/25 21:15 01/17/25 22:00 Temperature Pulse Rate 98 96 95 Respiratory Rate 17 20 25 H Blood Pressure 138/73 155/87 H Pulse Oximetry 98 98 Oxygen Delivery 01/17/25 23:29 01/18/25 00:40 01/18/25 02:40 Temperature 97.5 F L Pulse Rate 98 92 106 H Respiratory Rate 18 18 20 Blood Pressure 167/75 H Pulse Oximetry 96 Oxygen Delivery 01/18/25 03:25 Temperature Pulse Rate 98 Respiratory Rate 28 H Blood Pressure Pulse Oximetry 100 Oxygen Delivery Exam Const: General: cooperative, comfortable, no acute distress, well developed, awake and Physically active Nutritional Appearance: obese morbidly obese Orientation/consciousness: oriented to person, oriented to place, oriented to time and patient oriented x3 Limitations: no limitations HENMT: Head: normal to inspection, No palpable skull fracture present, normocephalic, atraumatic and abrasion Ears: hearing grossly normal bilaterally Eyes: General: appearance normal, both eyes and all related structures Alignment and Position: alignment normal Periorbital: periorbital findings normal Eyelids: eyelids normal Neck: Neck: normal visual inspection, full ROM, no lymphadenopathy and trachea midline Chest: Chest palpation & inspection: normal inspection of the chest Resp: Effort & Inspection: able to speak in complete sentences, abnormal respiratory pattern and Actively coughing Auscultation: wheezes expiratory wheezes and diminished lung sounds Cardio: Palpation: normal PMI Rate: regular rate Rhythm: regular rhythm Heart sounds: S1 normal heart sound present and S2 normal heart sound present Peripheral pulses: Peripheral pulses 2+ throughout Other: 2+ pitting edema to lower extremities GI: Inspection: normal to inspection Percussion: Yes normal to percussion Auscultation: normal bowel sounds Rectal Exam: deferred Skin: General skin exam: normal color Lesions: no lesions Rashes: no rashes Trauma: no lacerations or abrasions Wounds: no wounds Hair: normal Nails: normal Neuro: General: oriented to person, oriented to place, oriented to time and patient oriented x3 Cranial nerves: Yes Equal, round and reactive pupils present and Yes Normal hearing present Cognition (Neuro): normal cognition Speech: normal speech Motor exam (neuro): 5/5 motor strength present throughout Sensory Exam: normal sensation Extrem: General: normal to inspection Right upper extremity: normal to inspection and shoulder/upper arm Left upper extremity: normal to inspection and shoulder/upper arm Right lower extremity: edema Details: 3+ Left lower extremity: edema Details: 3+ Psych: Appearance: grossly normal Mental Status: mental status grossly normal Speech and movement: Normal speech and movement present Affect: normal affect Attitude: cooperative Thought process: Normal thought process present Thought content: Yes Normal thought content present Insight: Good insight present (Psych) Judgement: Good judgement present (Psych) H&P: Results Labs Labs: Short CBC 01/17/25 Range/Units 18:47 WBC 10.9 H (4.5-10.0) K/mm3 Hgb 13.5 L (14.0-18.0) g/dL Hct 41.1 L (42.0-52.0) % Plt Count 201 (150-375) k/mm3 BMP 01/17/25 18:47 Sodium 135 L Potassium 3.5 Chloride 100 Carbon Dioxide 22 BUN 12 Creatinine 0.72 Glucose 214 H Calcium 9.2 Cardiac Enzymes 01/17/25 01/17/25 Range/Units 18:47 21:30 Troponin I < 0.012 < 0.012 (0.000-0.034) ng/mL Liver Function 01/17/25 Range/Units 18:47 Total Bilirubin 0.5 (0.2-1.3) mg/dL AST 62 H (17-59) U/L ALT 59 H (6-50) U/L Alkaline Phosphatase 141 H (38-126) U/L Albumin 4.3 (3.5-5.1) g/dL ECG Interpretation: 96 [place] 207 QRSd 98 QT 331 QTc 420 --[place]-- P 91 QRS 12 T 44 SINUS RHYTHM LOW QRS VOLTAGE IN PRECORDIAL LEADS [QRS DEFLECTION < 1.0 mV IN CHEST LEADS] Compared to ECG 02/25/2024 11:47:39 Low QRS voltage now present Left ventricular hypertrophy no longer present ST (T wave) deviation no longer present Early repolarization no longer present Imaging CT scan - chest: Radiologist's impression: Impressions Chest X-Ray 01/17/25 19:13 IMPRESSION: 1. Interstitial pulmonary edema and/or pneumonitis. Chest/Abdomen/Pelvis CTA 01/17/25 19:44 IMPRESSION: CHEST- 1. No acute cardiopulmonary findings. ABDOMEN/PELVIS- 1. No acute abdominopelvic findings. 2. Hepatomegaly, with steatosis. 3. Other findings as above. Assessment and Plan Assessment and plan (1) Chest pain: Code(s): R07.9 - Chest pain, unspecified Status: Acute Assessment and Plan: -the patient's cardiac enzymes were negative x2. I will repeat another 1 this a.m[address] -CT of the chest/abdomen/pelvis was read as1. No acute cardiopulmonary findings. ABDOMEN/PELVIS- 1. No acute abdominopelvic findings. 2. Hepatomegaly, with steatosis. 3. Other findings as above. The patient was negative for PE. -the patient typically gets his care at [facility]. He stated that he has had an echo within the last 6 months. [place] records for echo has been requested. -patient has had 3 cardiac catheterization in the past with his last 1 being 2 years ago. He stated that he has had a heart attack at a young age but has not had any intervention. -cardiology has been consulted for further recommendations. Although his cardiac enzymes have been negative the patient continues to have some chest pressure. -EKG 96 [place] 207 QRSd 98 QT 331 QTc 420 --[place]-- P 91 QRS 12 T 44 SINUS RHYTHM LOW QRS VOLTAGE IN PRECORDIAL LEADS [QRS DEFLECTION < 1.0 mV IN CHEST LEADS] Compared to ECG 02/25/2024 11:47:39 Low QRS voltage now present Left ventricular hypertrophy no longer present ST (T wave) deviation no longer present Early repolarization no longer present -MONITOR CBC AND ELECTROLYTES. - (2) Heart failure with preserved ejection fraction: Code(s): I50.30 - Unspecified diastolic (congestive) heart failure Status: Chronic Assessment and Plan: -requesting echo from Cardiology at [place]. -continue with Jardiance and Coreg -the patient did respond to Lasix. -continue with IV Lasix. -continue to monitor electrolytes and renal function. -daily weight -INR (3) Hypertension: Qualifiers: Hypertension type: primary hypertension Qualified Code(s): I10 - Essential (primary) hypertension Code(s): I10 - Essential (primary) hypertension Status: Chronic Assessment and Plan: -continue Lasix, losartan, and Coreg pending medication reconciliation. -patient's blood pressure is currently 167/75. (4) Anxiety and depression: Code(s): F41.9 - Anxiety disorder, unspecified; F32.A - Depression, unspecified Status: Acute Assessment and Plan: -continue with Lamictal for bipolar and Zyprexa -CONTINUE WITH HYDROXYZINE PENDING MEDICATION RECONCILIATION. -continue with p.r.n. 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 -continue with heart healthy diet -continue otorrhea (6) Obstructive sleep apnea: Code(s): G47.33 - Obstructive sleep apnea (adult) (pediatric) Status: Chronic Assessment and Plan: -continue with patient settings as he has a trilogy at home. -WE USE AVAPS COMPARABLE TO TRILOGY SETTING AT HOME. (7) Chronic obstructive pulmonary disease: Code(s): J44.9 - Chronic obstructive pulmonary disease, unspecified Status: Acute Assessment and Plan: -THE PATIENT WAS STARTED ON SOLU-MEDROL. -CONTINUE WITH DUONEBS. -CONTINUE WITH BREZTRI PENDING MEDICATION RECONCILIATION -may consider pulmonology consult (8) Anemia of chronic disease: Code(s): D63.8 - Anemia in other chronic diseases classified elsewhere Status: Acute Assessment and Plan: ANEMIA OF CHRONIC DISEASE. THE PATIENT IS SLIGHTLY IMPROVED FROM HIS BASELINE. Quality VTE Prophylaxis VTE prophylaxis: pharmacologic ordered
[2025-01-18 05:23] LABS: Hematocrit 40.6 % (42.0-52.0); Hemoglobin 13.3 g/dL (14.0-18.0); Mean Corpuscular HGB Conc 32.8 g/dl (32-36); Mean Corpuscular Hemoglobin 29.6 pg (26-34); Mean Corpuscular Volume 90.4 fl (80-100); Platelet Count Result 184 k/mm3 (150-375); Red Blood Count 4.49 M/mm3 (4.6-6.20); White Blood Count 10.6 K/mm3 (4.5-10.0)
[2025-01-18 05:32] LABS: Hemoglobin A1C 9.8 % (<5.7)
[2025-01-18 05:46] LABS: Anion Gap 12 mmol/L (4-12); Blood Urea Nitrogen 12 mg/dL (9-20); Calcium 8.6 mg/dL (8.4-10.2); Carbon Dioxide 23 mmol/L (22-30); Chloride 98 mmol/L (98-107); Estimated CRCL calculation 193 ml/min; Estimated Glomerular Filt Rate > 60; Glucose 293 mg/dL (65-110); Potassium 4.2 mmol/L (3.4-5.0); Sodium 133 mmol/L (137-145)
[2025-01-18 05:53] LABS: Troponin I < 0.012 ng/mL (0.000-0.034)
[2025-01-18 06:01] LABS: Thyroid Stimulating Hormone Reflex 3.410 uIU/mL (0.465-4.68)
[2025-01-18] MEDS: IPRATROPIUM 0.5 MG/ALBUTEROL SULFATE 2.5 MG (BASE) AMPUL.NEB 3 ML INHALATION ×3 (08:26→20:25)
[2025-01-18] MEDS: FLUTICASONE/SALMETEROL 115-21 MCG INHALER 1 PUFF 2 PUFF INHALATION ×2 (08:27→20:25)
[2025-01-18] MEDS: INSULIN ASPART (*BKC) 100 UNITS/ML SUB-Q ×3 (09:08→16:47)
[2025-01-18] MEDS: FUROSEMIDE INJ 40 MG/4 ML VIAL IV PUSH (09:08)
[2025-01-18] MEDS: ENOXAPARIN 40 MG/0.4 ML SYRINGE SUB-Q (09:10)
[2025-01-18] MEDS: buPROPion HCL XL (24 HR) 150 MG TABCR 300 MG PO (09:11)
[2025-01-18] MEDS: LOSARTAN POTASSIUM 50 MG TABLET PO ×2 (09:11→16:44)
[2025-01-18] MEDS: EMPAGLIFLOZIN 25 MG TABLET PO (09:11)
[2025-01-18] MEDS: ATORVASTATIN 40 MG TABLET 80 MG PO (09:11)
[2025-01-18] MEDS: GABAPENTIN 300 MG CAPSULE PO ×4 (09:11→20:27)
[2025-01-18] MEDS: ASPIRIN 81 MG ENTERIC TABLET PO (09:12)
[2025-01-18] MEDS: AZELASTINE HCL NASAL 0.1% 137 MCG/SPR 30 ML BTL 2 SPRAY NASAL ×2 (09:18→17:02)
[2025-01-18] MEDS: FLUTICASONE PROPIONATE 0.05% NA SPR 16 GM BTL (*BKC) 1 SPRAY NASAL (09:18)
[2025-01-18] MEDS: INSULIN GLARGINE (*BKC) 100 UNITS/ML 28 UNITS SUB-Q (09:26)
[2025-01-18] MEDS: NITROGLYCERIN SL 0.4 MG TABLET SUBLINGUAL (12:01)
--- NOTE | 2025-01-18 15:36 | P.PNIM_ITS ---
Progress Note: A&P Assessment and Plan (1) Chest pain: Code(s): R07.9 - Chest pain, unspecified Status: Acute Assessment and Plan: -the patient's cardiac enzymes were negative x2. I will repeat another 1 this a.m.. -CT of the chest/abdomen/pelvis was read as1. No acute cardiopulmonary findings. ABDOMEN/PELVIS- 1. No acute abdominopelvic findings. 2. Hepatomegaly, with steatosis. 3. Other findings as above. The patient was negative for PE. -the patient typically gets his care at [facility]. He stated that he has had an echo within the last 6 months. [place] records for echo has been requested. -patient has had 3 cardiac catheterization in the past with his last 1 being 2 years ago. He stated that he has had a heart attack at a young age but has not had any intervention. -cardiology has been consulted for further recommendations. Although his cardiac enzymes have been negative the patient continues to have some chest pressure. -EKG 96 AR 207 QRSd 98 QT 331 QTc 420 --[place]-- P 91 QRS 12 T 44 SINUS RHYTHM LOW QRS VOLTAGE IN PRECORDIAL LEADS [QRS DEFLECTION < 1.0 mV IN CHEST LEADS] Compared to ECG 02/25/2024 11:47:39 Low QRS voltage now present Left ventricular hypertrophy no longer present ST (T wave) deviation no longer present Early repolarization no longer present -MONITOR CBC AND ELECTROLYTES. 01/18: -Cardiac enzymes negative x3 -Trialed nitro today, did not help, will continue with O2 & Morphine -Awaiting recent (3-4 months ago) echo from outpt cards -Continue with daily labs -Pending cards consult -Continue telemetry (2) Heart failure with preserved ejection fraction: Code(s): I50.30 - Unspecified diastolic (congestive) heart failure Status: Chronic Assessment and Plan: -requesting echo from Cardiology at [place]. -continue with Jardiance and Coreg -the patient did respond to Lasix. -continue with IV Lasix. -continue to monitor electrolytes and renal function. -daily weight -INR 01/18: Pt with no hx of spironolactone, appreciate cards consult rec -Pt with continued SOB and chest discomfort -Awaiting recent echo results (3) Hypertension: Qualifiers: Hypertension type: primary hypertension Qualified Code(s): I10 - Essential (primary) hypertension Code(s): I10 - Essential (primary) hypertension Status: Chronic Assessment and Plan: -continue Lasix, losartan, and Coreg pending medication reconciliation. -patient's blood pressure is currently 130/76 (4) Anxiety and depression: Code(s): F41.9 - Anxiety disorder, unspecified; F32.A - Depression, unspecified Status: Acute Assessment and Plan: -continue with Lamictal for bipolar and Zyprexa -CONTINUE WITH HYDROXYZINE PENDING MEDICATION RECONCILIATION. -continue with p.r.n. 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 Bates - last seen in October 2024. Per that note: Current Regimen: Lantus 35 units once daily Humalog SSI Metformin 1000mg twice times a day Jardiance 10mg once daily Past Medications: Mounjaro- stopped due not getting a new scrips Victoza- unsure why stopped Glyburide 2.5 mg once daily Glipizide 5mg once daily Ozempic- nausea Restart Mounjaro Will continue to trend blood sugars and adjust insulin as needed -Pt currently on solu-medrol inpatient (6) Obstructive sleep apnea: Code(s): G47.33 - Obstructive sleep apnea (adult) (pediatric) Status: Chronic Assessment and Plan: -continue with patient settings as he has a trilogy at home. -WE USE AVAPS COMPARABLE TO TRILOGY SETTING AT HOME. (7) Chronic obstructive pulmonary disease: Code(s): J44.9 - Chronic obstructive pulmonary disease, unspecified Status: Acute Assessment and Plan: -THE PATIENT WAS STARTED ON SOLU-MEDROL. -CONTINUE WITH DUONEBS. -CONTINUE WITH BREZTRI PENDING MEDICATION RECONCILIATION -may consider pulmonology consult (8) Anemia of chronic disease: Code(s): D63.8 - Anemia in other chronic diseases classified elsewhere Status: Acute Assessment and Plan: ANEMIA OF CHRONIC DISEASE. THE PATIENT IS SLIGHTLY IMPROVED FROM HIS BASELINE. Plan Trend labs, sx and pain tx, cards consult, pending echo results Time Spent With Patient Time: 35 Subjective Date/time seen: 01/18/25 1130 Interval history: Admitting hospitalist: This is the obese 49-year-old male patient who has a history of COPD, CHF, myocardial infarction, hypertension and asthma. The patient typically gets his care at [facility]. However today he came to was due to the shortness of breath. The patient denies any fever or chills. He also complained of chest pain or chest pressure. Chest x-ray was read as interstitial pulmonary edema and/or pneumonitis. Chest/abdomen/pelvis CTA was read as no acute cardiopulmonary findings. No acute abdominal pelvic findings. Hepatomegaly with steatosis. His white count is 10.9 is H&H is 13.5 and 41.1. Sodium was 135. Anion gap is 13. His blood sugars 214. Troponins are negative x2. BNP is 75. Viral serologies are negative. The patient was given a neb treatment in the emergency room, Benadryl, Lasix, Solu-Medrol, Reglan, and morphine in the emergency room. The patient is being admitted to observation status on the date of service of 01/18/202501/18: Pt with cpap applied upon my arrival to room, pt states that he has been trying to sleep. Pt continues to c/o chest discomfort and SOB. Pr currently requesting pain medication. 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 Pt reports that he takes Jardiance, Coreg, and Lasix at home but has never been rx spironolactone. Also reports that he normally has BLE edema, but it is worse today than his baseline (1+ pitting today). Review of Systems Review of Systems: All systems reviewed & are unremarkable except as noted in HPI and below Constitutional: Constitutional: Reports as per HPI and Reports no additional constitutional complaints Eyes: Eyes: Reports as per HPI and Reports no additional eye complaints ENT: Reports system reviewed and no additional complaints, except as documented and Reports Normal hearing present Cardiovascular: Cardiovascular: Reports no additional cardiovascular complaints Respiratory: Respiratory: Reports as per HPI and Reports no additional respiratory complaints Gastrointestinal: Gastrointestinal: Reports as per HPI and Reports no additional gastrointestinal complaints Musculoskeletal: Musculoskeletal: Reports no additional musculoskeletal complaints Integumentary/Breasts: Skin/Breast: Reports system reviewed and no additional complaints, except as docu Neurologic: Reports system reviewed and no additional complaints, except as documented and Reports Normal hearing present Psychiatric: Psychiatric: Reports no additional psychiatric complaints and Reports as per HPI Hematologic/Lymphatic: Hematologic/Lymphatic: Reports no additional hematologic/lymphatic complaints Allergic/Immunologic: Allergic/Immunologic: Reports no additional allergic/immunologic complaints Exam Const: General: cooperative, comfortable, no acute distress, well developed, awake, Physically active, well nourished and obese Nutritional Appearance: well nourished and obese morbidly obese Orientation/consciousness: oriented to person, oriented to place, oriented to time and patient oriented x3 Limitations: no limitations HENMT: Head: normal to inspection, No palpable skull fracture present, normocephalic, atraumatic and abrasion Ears: hearing grossly normal bilaterally Eyes: General: appearance normal, both eyes and all related structures Alignment and Position: alignment normal Periorbital: periorbital findings normal Eyelids: eyelids normal Pupils: Equal, round and reactive pupils present Neck: Neck: normal visual inspection, full ROM, no lymphadenopathy and trachea midline Chest: Chest palpation & inspection: normal inspection of the chest Resp: Effort & Inspection: normal respiratory effort, able to speak in comp lete sentences, abnormal respiratory pattern and Actively coughing Auscultation: clear to auscultation bilaterally, wheezes expiratory wheezes and diminished lung sounds Percussion: percussion normal Cardio: Palpation: normal PMI Rate: regular rate Rhythm: regular rhythm Heart sounds: S1 normal heart sound present and S2 normal heart sound present Peripheral pulses: Peripheral pulses 2+ throughout Other: 2+ pitting edema to lower extremities GI: Inspection: normal to inspection Auscultation: normal bowel sounds Rectal Exam: deferred Skin: General skin exam: normal color Lesions: no lesions Rashes: no rashes Trauma: no lacerations or abrasions Wounds: no wounds Hair: normal Nails: normal Neuro: General: oriented to person, oriented to place, oriented to time and patient oriented x3 Cranial nerves: Yes Equal, round and reactive pupils present and Yes Normal hearing present Cognition (Neuro): normal cognition Speech: normal speech Motor exam (neuro): 5/5 motor strength present throughout Sensory Exam: normal sensation Extrem: General: normal to inspection Right upper extremity: normal to inspection and shoulder/upper arm Left upper extremity: normal to inspection and shoulder/upper arm Right lower extremity: normal to inspection and edema Details: 3+ Left lower extremity: normal to inspection and edema Details: 3+ Psych: Appearance: grossly normal Mental Status: mental status grossly normal Speech and movement: Normal speech and movement present Affect: normal affect Attitude: cooperative Thought process: Normal thought process present Insight: Good insight present (Psych) Judgement: Good judgement present (Psych) Objective Data Vital Signs Vital Signs: Vital Signs - 24 hr 01/17/25 18:38 01/17/25 18:41 01/17/25 19:30 Temperature Pulse Rate 94 100 Respiratory Rate 18 Blood Pressure 176/98 H Pulse Oximetry 98 Oxygen Delivery Room Air Room Air Fraction of Inspired Oxygen 01/17/25 19:40 01/17/25 20:00 01/17/25 20:49 Temperature Pulse Rate 90 92 83 Respiratory Rate 24 H 28 H 16 Blood Pressure 150/72 H 160/108 H Pulse Oximetry 98 97 Oxygen Delivery Fraction of Inspired Oxygen 01/17/25 21:07 01/17/25 21:15 01/17/25 22:00 Temperature Pulse Rate 98 96 95 Respiratory Rate 17 20 25 H Blood Pressure 138/73 155/87 H Pulse Oximetry 98 98 Oxygen Delivery Fraction of Inspired Oxygen 01/17/25 23:29 01/18/25 00:40 01/18/25 02:40 Temperature 97.5 F L Pulse Rate 98 92 106 H Respiratory Rate 18 18 20 Blood Pressure 167/75 H Pulse Oximetry 96 Oxygen Delivery Fraction of Inspired Oxygen 01/18/25 03:25 01/18/25 05:54 01/18/25 06:01 Temperature 98.7 F Pulse Rate 98 106 H Respiratory Rate 28 H 20 Blood Pressure 158/70 H Pulse Oximetry 100 99 Oxygen Delivery CPAP Fraction of Inspired Oxygen 01/18/25 08:26 01/18/25 08:26 01/18/25 08:39 Temperature Pulse Rate 78 83 Respiratory Rate 20 20 Blood Pressure Pulse Oximetry 94 Oxygen Delivery Room Air Fraction of Inspired Oxygen 21 01/18/25 09:11 01/18/25 10:37 01/18/25 12:45 Temperature Pulse Rate 83 105 H 83 Respiratory Rate 21 H 20 Blood Pressure Pulse Oximetry 97 98 Oxygen Delivery Fraction of Inspired Oxygen 01/18/25 13:47 01/18/25 14:55 01/18/25 14:55 Temperature 98.8 F Pulse Rate 79 85 85 Respiratory Rate 20 20 21 H Blood Pressure 130/76 Pulse Oximetry 96 97 Oxygen Delivery Fraction of Inspired Oxygen 01/18/25 15:05 Temperature Pulse Rate 83 Respiratory Rate 20 Blood Pressure Pulse Oximetry Oxygen Delivery Fraction of Inspired Oxygen Intake/Output Intake/Output: Intake & Output 01/15/25 01/16/25 01/17/25 01/18/25 23:59 23:59 23:59 23:59 Intake Total 551 Balance 551 Meds/Results Medications: Active Medications Generic Name Dose Route Start Last Admin Trade Name Freq PRN Reason Stop Dose Admin Albuterol/Ipratropium 3 ml 01/18/25 08:00 01/18/25 14:55 Ipratropium 0.5 Mg/Albuterol Sulfate 2.5 Mg (Base) Ampul.Neb 3 Ml INHALATION 3 ml Q6HRT JEANNINE Administration Aspirin 81 mg 01/18/25 09:00 01/18/25 09:12 Aspirin 81 Mg Enteric Tablet PO 81 mg DAILY JEANNINE Administration Atorvastatin Calcium 80 mg 01/18/25 09:00 01/18/25 09:11 Atorvastatin 40 Mg Tablet PO 80 mg DAILY JEANNINE Administration Azelastine HCl 2 spray 01/18/25 09:00 01/18/25 09:18 Azelastine Hcl Nasal 0.1% 137 Mcg/Spr 30 Ml Btl NASAL 2 spray BID JEANNINE Administration Bupropion HCl 300 mg 01/18/25 09:00 01/18/25 09:11 Bupropion Hcl Xl (24 Hr) 150 Mg Tabcr PO 300 mg DAILY JEANNINE Administration Carvedilol 6.25 mg 01/18/25 09:00 01/18/25 09:11 Carvedilol 6.25 Mg Tablet PO 6.25 mg BID JEANNINE Administration Dextrose 12.5 gm 01/18/25 04:09 Dextrose 50% 25 Gm/50 Ml Syringe IV PUSH PRN PRN Hypoglycemia Protocol Empagliflozin 25 mg 01/18/25 09:00 01/18/25 09:11 Empagliflozin 25 Mg Tablet PO 25 mg DAILY JEANNINE Administration Enoxaparin Sodium 40 mg 01/18/25 09:00 01/18/25 09:10 Enoxaparin 40 Mg/0.4 Ml Syringe SUB-Q 40 mg DAILY JEANNINE Administration Famotidine 40 mg 01/18/25 21:00 Famotidine 20 Mg Tablet PO HS JEANNINE Fluticasone Propionate 1 spray 01/18/25 09:00 01/18/25 09:18 Fluticasone Propionate 0.05% Na Spr 16 Gm Btl (*Bkc) NASAL 1 spray DAILY JEANNINE Administration Furosemide 40 mg 01/18/25 09:00 01/18/25 09:08 Furosemide Inj 40 Mg/4 Ml Vial IV PUSH 40 mg BID JEANNINE Administration Gabapentin 300 mg 01/18/25 09:00 01/18/25 12:03 Gabapentin 300 Mg Capsule PO 300 mg QID JEANNINE Administration Glucagon 1 mg 01/18/25 04:09 Glucagon For Inj 1 Mg Vial IM PRN PRN Hypoglycemia Protocol Glucose 15 gm 01/18/25 04:09 Glucose Oral Gel 15 Gm Of Glucse In 37.5 Gm Tube PO PRN PRN Hypoglycemia Protocol Hydroxyzine Pamoate 50 mg 01/18/25 07:05 01/18/25 12:16 Hydroxyzine Pamoate 25 Mg Capsule PO 50 mg BID PRN Administration Anxiety Dextrose 1,000 mls @ 100 mls/hr 01/18/25 04:09 Dextrose 5% 1,000 Ml IVPB PRN PRN Hypoglycemia Protocol Insulin Aspart 3 - 6 units 01/18/25 08:00 01/18/25 12:01 Insulin Aspart (*Bkc) 100 Units/Ml SUB-Q 5 units TIDWM JEANNINE Administration Protocol Insulin Glargine 28 units 01/18/25 09:00 01/18/25 09:26 Insulin Glargine (*Bkc) 100 Units/Ml SUB-Q 28 units DAILY JEANNINE Administration Lamotrigine 200 mg 01/18/25 09:00 01/18/25 09:11 Lamotrigine 100 Mg Tablet PO 200 mg BID JEANNINE Administration Losartan Potassium 50 mg 01/18/25 09:00 01/18/25 09:11 Losartan Potassium 50 Mg Tablet PO 50 mg BID JEANNINE Administration Methylprednisolone Sodium Succinate 60 mg 01/18/25 06:00 01/18/25 12:00 Methylprednisolone Sod Succ 125 Mg Vial IV PUSH 60 mg Q6HR EJANNINE Administration Morphine Sulfate 2 mg 01/18/25 00:42 01/18/25 14:55 Morphine Sulfate (*Crx) 2 Mg/Ml Inj IV PUSH 2 mg Q2H PRN Administration Pain Rated 7-10 Nitroglycerin 0.4 mg 01/18/25 11:33 Nitroglycerin Sl 0.4 Mg Tablet SUBLINGUAL Q5MIN PRN Chest Pain Fluticasone/Salmeterol 2 puff 01/18/25 08:00 01/18/25 08:27 Fluticasone/Salmeterol 115-21 Mcg Inhaler 1 Puff INHALATION 2 puff Q12HRT JEANNINE Administration Ziprasidone 40 mg 01/18/25 21:00 Ziprasidone Hcl 20 Mg Capsule PO HS [facility] Radiology Results: ITS Impressions Chest X-Ray 01/17/25 19:13 IMPRESSION: 1. Interstitial pulmonary edema and/or pneumonitis. Chest/Abdomen/Pelvis CTA 01/17/25 19:44 IMPRESSION: CHEST- 1. No acute cardiopulmonary findings. ABDOMEN/PELVIS- 1. No acute abdominopelvic findings. 2. Hepatomegaly, with steatosis. 3. Other findings as above. Labs Labs: Laboratory Results - last 24 hr 01/17/25 01/17/25 01/18/25 18:47 21:30 00:54 WBC 10.9 H RBC 4.61 Hgb 13.5 L Hct 41.1 L MCV 89.2 MCH 29.3 MCHC 32.8 RDW 13.9 Plt Count 201 MPV 9.7 Immature Gran % (Auto) 0.4 Neut % (Auto) 69.2 Lymph % (Auto) 24.3 [place] % (Auto) 4.6 Eos % (Auto) 1.0 Baso % (Auto) 0.5 Lymph # (Auto) 2.64 [place] # (Auto) 0.5 Eos # (Auto) 0.1 Baso # (Auto) 0.1 Abs Immat Gran (auto) 0.04 H Absolute Neuts (auto) 7.5 H Absolute Nucleated RBC 0.000 Nucleated RBC % 0.0 PT 13.8 INR 1.1 APTT 28.5 Sodium 135 L Potassium 3.5 Chloride 100 Carbon Dioxide 22 Anion Gap 13 H BUN 12 Creatinine 0.72 Estim Creat Clear Calc 188 Estimated GFR > 60 Glucose 214 H POC Capillary Glucose Hemoglobin A1c Calcium 9.2 Total Bilirubin 0.5 AST 62 H ALT 59 H Alkaline Phosphatase 141 H Troponin I < 0.012 < 0.012 NT-Pro-B Natriuret Pep 75 Total Protein 8.1 Albumin 4.3 Lipase 86 TSH (Reflex) Influenza A (RT-PCR) Negative Influenza B (RT-PCR) Negative RSV (RT-PCR) Negative SARS-CoV-2 RNA (RT-PCR) Negative 01/18/25 01/18/25 01/18/25 05:05 05:21 08:37 WBC 10.6 H RBC 4.49 L Hgb 13.3 L Hct 40.6 L MCV 90.4 MCH 29.6 MCHC 32.8 RDW 14.0 Plt Count 184 MPV 10.0 Immature Gran % (Auto) Neut % (Auto) Lymph % (Auto) [place] % (Auto) Eos % (Auto) Baso % (Auto) Lymph # (Auto) [place] # (Auto) Eos # (Auto) Baso # (Auto) Abs Immat Gran (auto) Absolute Neuts (auto) Absolute Nucleated RBC Nucleated RBC % PT INR APTT Sodium 133 L Potassium 4.2 Chloride 98 Carbon Dioxide 23 Anion Gap 12 BUN 12 Creatinine 0.70 Estim Creat Clear Calc 193 Estimated GFR > 60 Glucose 293 H POC Capillary Glucose 288 H 254 H Hemoglobin A1c 9.8 H Calcium 8.6 Total Bilirubin AST ALT Alkaline Phosphatase Troponin I < 0.012 NT-Pro-B Natriuret Pep Total Protein Albumin Lipase TSH (Reflex) 3.410 Influenza A (RT-PCR) Influenza B (RT-PCR) RSV (RT-PCR) SARS-CoV-2 RNA (RT-PCR) 01/18/25 11:24 WBC RBC Hgb Hct MCV MCH MCHC RDW Plt Count MPV Immature Gran % (Auto) Neut % (Auto) Lymph % (Auto) [place] % (Auto) Eos % (Auto) Baso % (Auto) Lymph # (Auto) [place] # (Auto) Eos # (Auto) Baso # (Auto) Abs Immat Gran (auto) Absolute Neuts (auto) Absolute Nucleated RBC Nucleated RBC % PT INR APTT Sodium Potassium Chloride Carbon Dioxide Anion Gap BUN Creatinine Estim Creat Clear Calc Estimated GFR Glucose POC Capillary Glucose 335 H Hemoglobin A1c Calcium Total Bilirubin AST ALT Alkaline Phosphatase Troponin I NT-Pro-B Natriuret Pep Total Protein Albumin Lipase TSH (Reflex) Influenza A (RT-PCR) Influenza B (RT-PCR) RSV (RT-PCR) SARS-CoV-2 RNA (RT-PCR) Quality VTE Prophylaxis VTE prophylaxis: pharmacologic ordered
--- NOTE | 2025-01-18 15:53 | PM.CNCAR ---
Assessment and Plan Assessment and plan (1) Chest pain: Code(s): R07.9 - Chest pain, unspecified Status: Acute (2) Chronic obstructive pulmonary disease: Code(s): J44.9 - Chronic obstructive pulmonary disease, unspecified Status: Acute (3) Type 2 diabetes mellitus: Code(s): E11.9 - Type 2 diabetes mellitus without complications Status: Chronic (4) Chronic respiratory failure with hypoxia and hypercapnia: Code(s): J96.11 - Chronic respiratory failure with hypoxia; J96.12 - Chronic respiratory failure with hypercapnia Status: Acute (5) Morbid obesity: Code(s): E66.01 - Morbid (severe) obesity due to excess calories Status: Acute Plan Assessment: Morbidly obese patient with BMI of 56 of present shortness of breath chest tightness. 1. Patient has negative cardiac enzymes. EKG does not show acute ST changes. 2. BNP is completely no with this patient, which is possible in obese patient. Previous echocardiogram shows a large left ventricle with preserved systolic function. Patient also has moderate ventricular hypertrophy. This suggests possibility of having diastolic dysfunction. Patient has history of COPD and asthma. Shortness of breath likely combination of chronic anemia and exacerbation of COPD. 3. Morbid obesity. Patient weighs 187 kg with BMI of 56. Patient has history of obstructive sleep apnea. 4. Elevated blood sugar in the range of 290-330 mg/dL. Patient likely has uncontrolled diabetes. 5. History of hypertension and hypertensive heart disease chronic diastolic dysfunction with moderate left ventricular hypertrophy based on echocardiogram. Chest x-ray suggestive of pulmonary edema. BNP is relatively low secondary to obesity. 6. Mildly elevated LFTs likely secondary to diabetes and fatty liver. Recommendations: #. Currently blood pressure is 130/76. Heart rate is 83 per minute. Breathing rate is 20 per minute, #. Start patient on Lasix 40 mg b.i.d.. Home medications reviewed. Continue with losartan 50 mg daily, Jardiance 25 mg daily, atorvastatin 80 mg at bedtime, aspirin 81 mg daily and carvedilol 6.25 mg b.i.d.. Okay to continue this medications. Increase carvedilol to 12.5 #. Continue Lasix 80 mg IV push b.i.d. Continue to urine output. mg b.i.d.. #. Follow-up echocardiogram to evaluate for left ventricular systolic function. #. DVT prophylaxis Pred #. Continue to use CPAP at night for obstructive sleep apnea at this setting he used at home. #. Treat underlying COPD exacerbation with the nebulizer treatment and other pulmonary medications. Agree with BiPAP mask. Thank you again for allowing us to participate in care of this patient. History of Present Illness History of Present Illness Consult date/time: 01/18/25 15:53 Requesting physician: Lucia Hatch APRN Consult reason: chest pain and congestive heart failure Reason For Visit: COPD exacerbation Narrative: Patient is a 49-year-old male admitted via emergency room on 01/17/2025 complaints of shortness of breath and chest pain. Past medical history significant for history of hypertension, COPD, microinfarction the past, congestive heart failure and asthma. No complaints of fever or chills. Patient started having shortness of breath, chest tightness and tachypneic this morning. Patient also had a feeling of diaphoresis. Initial workup in the emergency room revealed blood pressure 176/98 mm of mercury and heart rate of 94 per minute. Respirations 18 per minute with normal O2 saturation. Admitting laboratory data and appears content 0.9, hemoglobin 13.5, platelets are normal. Sodium 133, potassium is 4.2, BUN is 12, creatinine 0.7. His AST and ALT are mildly elevated is 62 and 59. Her current present and 41 point admitting troponin I was negative x2. ProBNP was only 75. Admitting EKG revealed normal sinus rhythm with heart rate of 88 per minute and no significant ST or T-wave changes Chest x-ray revealed normal heart size with diffusely increased interstitial marking. The chest x-ray impression reported as interstitial pulmonary edema and or pneumonitis. His previous echocardiogram on 04/13/2021 has revealed severely enlarged left ventricle with ejection fraction in the range of 50-55% to. Moderate left ventricular hypertrophy and abnormal diastolic function. Left atrium is mildly enlarged. With mild pulmonary hypertension estimated at 37 mm of mercury. Mildly dilated aortic root noted at the level of sinus. Patient was examined at the bedside. Patient is morbidly obese. Patient is awake alert in using BiPAP mask. Moderate bilateral leg edema is noted. Review of Systems Review of Systems: Twelve point review of system was completed. Pertinent positive and negative findings per HPI. Constitutional positive for weakness and diaphoresis. Negative for weight loss, fever or chills. Head and neck reveals system is negative. Pulmonary system positive for shortness of breath negative for cough or hemoptysis. Cardiovascular positive for chest pain and palpitations. Gastrointestinal system negative for abdominal pain, nausea vomiting or diarrhea. Neurovascular system is negative for any dizziness, syncope, unsteady gait or seizure disorder. Skin and musculoskeletal is negative. [facility] Past Medical History Medical History Anemia of chronic disease Heart failure with preserved ejection fraction echo pain 04/05/2020 showed a severely enlarged left ventricular chamber with an EF at the low end of normal estimated 50 to 55%, abnormal diastolic function, and mild pulmonary hypertension Dyslipidemia Anxiety and depression Gastroesophageal reflux disease Obstructive sleep apnea Type 2 diabetes mellitus Chronic obstructive pulmonary disease Obesity hypoventilation syndrome Chronic respiratory failure with hypoxia and hypercapnia he is on p.r.n. oxygen during the day and uses a trilogy unit with at nighttime Tobacco abuse Hypertension Surgical History Surgical History History of hernia repair History of cardiac catheterization no intervention x3. The last 1 was around 2022. History of tonsillectomy Family History Family History Father Diabetes mellitus Other Acute myocardial infarction Social History Social History Social History: He has 4 daughters and he is disabled. Surrogate medical decision maker: Candie Leahy, . Code status: Full code. Smoking packs per day: 1.5 Smoking cigarettes per day: 30.0 Years smoked: 25 Smoking pack-years: 37.50 Smoking status: Former smoker Tobacco type: cigarettes Second hand tobacco smoke exposure: No Smoking end date: 04/17/21 Alcohol intake: former Alcohol use details: rarely Substance use: never Substance use type: marijuana Last use: last used marijuana a week ago Do You Feel Safe in your Home?: Yes Lack of Transportation: No Lack of Food: Never True Current Housing: I Have Housing Concerned About Future Housing: No Difficulty Paying Gas/Electric Bills: No Difficulty Paying for Meds: No Currently Unemployed: No Education: Trade/Vocational Certificate Difficulty w/ Childcare or Family Care: No Living arrangements: with family Spiritual care concerns: No Meds Home Medications and Allergies Home Medications ?Medication ?Instructions ?Recorded ?Confirmed ?Type carvedilol 6.25 mg tablet 6.25 mg PO BID 10/18/20 01/18/25 History albuterol sulfate 1.25 mg/3 mL 2.5 mg inhalation Q4H PRN 04/13/21 01/18/25 History solution for nebulization Shortness Of Breath albuterol sulfate 90 mcg/actuation 2 puff inhalation Q6-8H PRN 10/22/23 01/18/25 History aerosol inhaler shortness of breath or wheezing azelastine 137 mcg (0.1 %) nasal 137 mcg intranasal BID 10/22/23 01/18/25 History spray furosemide 40 mg tablet (Lasix) 40 mg PO BID 10/22/23 01/18/25 History ziprasidone HCl 60 mg capsule 60 mg PO BID 10/22/23 01/18/25 History aspirin 81 mg tablet,delayed 81 mg PO DAILY 02/25/24 01/18/25 History release hydroxyzine pamoate 50 mg capsule 50 mg PO BID PRN Anxiety 02/25/24 01/18/25 History buspirone 30 mg tablet 30 mg PO BID 03/25/24 01/18/25 History glucagon 1 mg/0.2 mL subcutaneous 1 mg (0.2 mL) subcut ONCE #0.4 mL 05/29/24 01/18/25 Rx auto-injector (Danielito Delaneyen 2-Pack) ostomy supplies (Skin Prep Wipes) #50 ea 05/29/24 01/18/25 Rx tirzepatide 7.5 mg/0.5 mL 7.5 mg (0.5 mL) subcut WEEKLY #6 mL 12/31/24 01/18/25 Rx subcutaneous pen injector (Heath) atorvastatin 80 mg tablet 80 mg PO DAILY 01/18/25 01/18/25 History bupropion HCl 300 mg 24 hr tablet, 300 mg PO DAILY 01/18/25 01/18/25 History extended release buspirone 10 mg tablet 10 mg PO TID 01/18/25 01/18/25 History doxycycline hyclate 100 mg tablet 100 mg PO BIDWM 01/18/25 01/18/25 History empagliflozin 25 mg tablet 25 mg PO DAILY 01/18/25 01/18/25 History (Jardiance) famotidine 40 mg tablet 40 mg PO HS 10/04/25 10/04/25 History fluticasone propionate 115 2 puff inhalation BID 01/18/25 01/18/25 History mcg-salmeterol 21 mcg/actuation HFA inhaler (Advair HFA) fluticasone propionate 50 1 spray intranasal DAILY 01/18/25 01/18/25 History mcg/actuation nasal spray,suspension gabapentin 300 mg capsule 300 mg PO QID 01/18/25 01/18/25 History insulin glargine 100 unit/mL (3 50 unit subcut HS 01/18/25 01/18/25 History mL) subcutaneous pen (Lantus Solostar U-100 Insulin) ipratropium 0.5 mg-albuterol 3 mg 3 ml inhalation QID 01/18/25 01/18/25 History (2.5 mg base)/3 mL nebulization soln lamotrigine 200 mg tablet 200 mg PO BID 01/18/25 01/18/25 History losartan 50 mg tablet 50 mg PO BID 01/18/25 01/18/25 History metformin 500 mg tablet 500 mg PO BID 01/18/25 01/18/25 History metformin 500 mg tablet,extended 1,000 mg PO BID 01/18/25 01/18/25 History release 24 hr (Glucophage XR) omeprazole 40 mg capsule,delayed 40 mg PO HS 01/18/25 01/18/25 History release peg 3350-electrolytes 236 ml 01/18/25 History gram-22.74 gram-6.74 gram-5.86 gram solution tirzepatide 2.5 mg/0.5 mL 2.5 mg subcut WEEKLY 01/18/25 01/18/25 History subcutaneous pen injector (Mounjaro) tirzepatide 5 mg/0.5 mL 5 mg subcut WEEKLY 01/18/25 01/18/25 History subcutaneous pen injector (Mounjaro) ziprasidone HCl 40 mg capsule 40 mg PO HS 01/18/25 01/18/25 History Allergies Allergy/AdvReac Type Severity Reaction Status Date / Time Penicillins Allergy Mild Hives Verified 01/17/25 18:42 Vital Signs Vital Signs - 24 hr 01/17/25 18:38 01/17/25 18:41 01/17/25 19:30 Temperature Pulse Rate 94 100 Respiratory Rate 18 Blood Pressure 176/98 H Pulse Oximetry 98 Oxygen Delivery Room Air Room Air Fraction of Inspired Oxygen 01/17/25 19:40 01/17/25 20:00 01/17/25 20:49 Temperature Pulse Rate 90 92 83 Respiratory Rate 24 H 28 H 16 Blood Pressure 150/72 H 160/108 H Pulse Oximetry 98 97 Oxygen Delivery Fraction of Inspired Oxygen 01/17/25 21:07 01/17/25 21:15 01/17/25 22:00 Temperature Pulse Rate 98 96 95 Respiratory Rate 17 20 25 H Blood Pressure 138/73 155/87 H Pulse Oximetry 98 98 Oxygen Delivery Fraction of Inspired Oxygen 01/17/25 23:29 01/18/25 00:40 01/18/25 02:40 Temperature 36.4 C L Pulse Rate 98 92 106 H Respiratory Rate 18 18 20 Blood Pressure 167/75 H Pulse Oximetry 96 Oxygen Delivery Fraction of Inspired Oxygen 01/18/25 03:25 01/18/25 05:54 01/18/25 06:01 Temperature 37.1 C Pulse Rate 98 106 H Respiratory Rate 28 H 20 Blood Pressure 158/70 H Pulse Oximetry 100 99 Oxygen Delivery CPAP Fraction of Inspired Oxygen 01/18/25 08:26 01/18/25 08:26 01/18/25 08:39 Temperature Pulse Rate 78 83 Respiratory Rate 20 20 Blood Pressure Pulse Oximetry 94 Oxygen Delivery Room Air Fraction of Inspired Oxygen 21 01/18/25 09:11 01/18/25 10:37 01/18/25 12:45 Temperature Pulse Rate 83 105 H 83 Respiratory Rate 21 H 20 Blood Pressure Pulse Oximetry 97 98 Oxygen Delivery Fraction of Inspired Oxygen 01/18/25 13:47 01/18/25 14:55 01/18/25 14:55 Temperature 37.1 C Pulse Rate 79 85 85 Respiratory Rate 20 20 21 H Blood Pressure 130/76 Pulse Oximetry 96 97 Oxygen Delivery Fraction of Inspired Oxygen 01/18/25 15:05 Temperature Pulse Rate 83 Respiratory Rate 20 Blood Pressure Pulse Oximetry Oxygen Delivery Fraction of Inspired Oxygen Exam Narrative: Patient was examined at the bedside. Patient is awake alert and appears comfortable without chest pain, shortness of breath orthopnea. Head and neck examination is unremarkable. Head is atraumatic. Sclerae is nonicteric. ENT examination is negative. Lungs reveal decreased air entry bilaterally there is no wheezing or crepitation. Heart sounds reveal normal S1-S2 soft systolic murmur. There is no S3 or S4. Rhythm is regular. Abdomen is soft and nontender. There is no hepatosplenomegaly. Bowel sounds present. Extremities reveal 2+ edema bilaterally. Distal pulses intact. There is no clubbing or cyanosis Pred Neurovascular is intact without any focal neurological signs. Skin and musculoskeletal is intact. Results Labs and Meds 01/18/25 05:05 01/18/25 05:05 Lab results: Cardiac Enzymes 01/17/25 01/17/25 01/18/25 Range/Units 18:47 21:30 05:05 AST 62 H (17-59) U/L Troponin I < 0.012 < 0.012 < 0.012 (0.000-0.034) ng/mL Coagulation 01/17/25 Range/Units 18:47 PT 13.8 (11.1-14.7) Seconds APTT 28.5 (22.3-36.8) Seconds CBC 01/17/25 01/18/25 Range/Units 18:47 05:05 WBC 10.9 H 10.6 H (4.5-10.0) K/mm3 RBC 4.61 4.49 L (4.6-6.20) M/mm3 Hgb 13.5 L 13.3 L (14.0-18.0) g/dL Hct 41.1 L 40.6 L (42.0-52.0) % Plt Count 201 184 (150-375) k/mm3 Lymph # (Auto) 2.64 (0.9-3.2) K/mm3 [place] # (Auto) 0.5 (0.1-0.6) K/mm3 Eos # (Auto) 0.1 (0-0.3) K/mm3 Baso # (Auto) 0.1 (0.0-0.1) K/mm3 Comprehensive Metabolic Panel 01/17/25 01/18/25 Range/Units 18:47 05:05 Sodium 135 L 133 L (137-145) mmol/L Potassium 3.5 4.2 (3.4-5.0) mmol/L Chloride 100 98 (98-107) mmol/L Carbon Dioxide 22 23 (22-30) mmol/L BUN 12 12 (9-20) mg/dL Creatinine 0.72 0.70 (0.7-1.3) mg/dL Glucose 214 H 293 H (65-110) mg/dL Calcium 9.2 8.6 (8.4-10.2) mg/dL AST 62 H (17-59) U/L ALT 59 H (6-50) U/L Alkaline Phosphatase 141 H (38-126) U/L Total Protein 8.1 (6.3-8.2) g/dL Albumin 4.3 (3.5-5.1) g/dL Intake and Output 01/17/25 01/18/25 01/18/25 23:59 07:59 15:59 Intake Total 200 351 Balance 200 351 Intake: Oral 200 351 Other: # Unmeasured Voids 1 Patient Weight 01/18/25 23:59 Weight 187.2 kg
[2025-01-18] MEDS: FUROSEMIDE INJ 40 MG/4 ML VIAL 80 MG IV PUSH (17:16)
[2025-01-18] MEDS: MORPHINE SULFATE (*CRX) 4 MG/ML INJ 2 MG IV PUSH (20:23)
[2025-01-18] MEDS: ZIPRASIDONE HCL 20 MG CAPSULE 40 MG PO (20:26)
[2025-01-18] MEDS: FAMOTIDINE 20 MG TABLET 40 MG PO (20:27)
[2025-01-19] VITALS (24 sets, daily range): BP systolic 104–130; BP diastolic 56–79; PULSE 75–104; RESP 16–28; TEMP 36.1–36.7; O2SAT 93–100
[2025-01-19] MEDS: MORPHINE SULFATE (*CRX) 4 MG/ML INJ 2 MG IV PUSH ×2 (01:49→10:28)
[2025-01-19] MEDS: IPRATROPIUM 0.5 MG/ALBUTEROL SULFATE 2.5 MG (BASE) AMPUL.NEB 3 ML INHALATION ×4 (01:55→20:38)
[2025-01-19 05:27] LABS: Hematocrit 41.7 % (42.0-52.0); Hemoglobin 13.6 g/dL (14.0-18.0); Immature Granulocyte Percent A 0.6 % (0-0.5); Lymphocytes Absolute Auto 1.58 K/mm3 (0.9-3.2); Mean Corpuscular HGB Conc 32.6 g/dl (32-36); Mean Corpuscular Hemoglobin 30.0 pg (26-34); Mean Corpuscular Volume 91.9 fl (80-100); Nucleated Red Blood Cells Absolute Auto 0.000 K/mm3 (0.0-0.012); Nucleated Red Blood Cells Perc 0.0 % (0.0-0.2); Platelet Count Result 212 k/mm3 (150-375); Red Blood Count 4.54 M/mm3 (4.6-6.20); White Blood Count 13.3 K/mm3 (4.5-10.0)
[2025-01-19 06:21] LABS: Alanine Aminotransferase 45 U/L (6-50); Albumin Level 4.2 g/dL (3.5-5.1); Alkaline Phosphatase 127 U/L (38-126); Anion Gap 14 mmol/L (4-12); Aspartate Amino Transferase 34 U/L (17-59); Bilirubin,Total 0.6 mg/dL (0.2-1.3); Blood Urea Nitrogen 20 mg/dL (9-20); Calcium 9.1 mg/dL (8.4-10.2); Carbon Dioxide 23 mmol/L (22-30); Chloride 97 mmol/L (98-107); Estimated CRCL calculation 148 ml/min; Estimated Glomerular Filt Rate > 60; Glucose 244 mg/dL (65-110); Potassium 4.3 mmol/L (3.4-5.0); Sodium 134 mmol/L (137-145); Total Protein 7.9 g/dL (6.3-8.2)
[2025-01-19] MEDS: INSULIN ASPART (*BKC) 100 UNITS/ML SUB-Q ×4 (08:05→22:06)
[2025-01-19] MEDS: INSULIN GLARGINE (*BKC) 100 UNITS/ML 28 UNITS SUB-Q (08:06)
[2025-01-19] MEDS: buPROPion HCL XL (24 HR) 150 MG TABCR 300 MG PO (08:17)
[2025-01-19] MEDS: GABAPENTIN 300 MG CAPSULE PO ×4 (08:18→22:05)
[2025-01-19] MEDS: EMPAGLIFLOZIN 25 MG TABLET PO (08:18)
[2025-01-19] MEDS: AZELASTINE HCL NASAL 0.1% 137 MCG/SPR 30 ML BTL 2 SPRAY NASAL ×2 (08:18→16:02)
[2025-01-19] MEDS: ENOXAPARIN 40 MG/0.4 ML SYRINGE SUB-Q (08:18)
[2025-01-19] MEDS: LOSARTAN POTASSIUM 50 MG TABLET PO ×2 (08:18→16:02)
[2025-01-19] MEDS: ASPIRIN 81 MG ENTERIC TABLET PO (08:18)
[2025-01-19] MEDS: ATORVASTATIN 40 MG TABLET 80 MG PO (08:18)
[2025-01-19] MEDS: FLUTICASONE PROPIONATE 0.05% NA SPR 16 GM BTL (*BKC) 1 SPRAY NASAL (08:18)
[2025-01-19] MEDS: FUROSEMIDE INJ 40 MG/4 ML VIAL 80 MG IV PUSH ×2 (08:19→16:03)
[2025-01-19] MEDS: FLUTICASONE/SALMETEROL 115-21 MCG INHALER 1 PUFF 2 PUFF INHALATION ×2 (08:31→20:37)
--- NOTE | 2025-01-19 09:01 | P.PNIM_ITS ---
Progress Note: A&P Assessment and Plan (1) Chest pain: Code(s): R07.9 - Chest pain, unspecified Status: Acute Assessment and Plan: -the patient's cardiac enzymes were negative x2. I will repeat another 1 this a.m.. -CT of the chest/abdomen/pelvis was read as1. No acute cardiopulmonary findings. ABDOMEN/PELVIS- 1. No acute abdominopelvic findings. 2. Hepatomegaly, with steatosis. 3. Other findings as above. The patient was negative for PE. -the patient typically gets his care at [facility]. He stated that he has had an echo within the last 6 months. [facility] records for echo has been requested. -patient has had 3 cardiac catheterization in the past with his last 1 being 2 years ago. He stated that he has had a heart attack at a young age but has not had any intervention. -cardiology has been consulted for further recommendations. Although his cardiac enzymes have been negative the patient continues to have some chest pressure. -EKG 96 NM 207 QRSd 98 QT 331 QTc 420 --Street-- P 91 QRS 12 T 44 SINUS RHYTHM LOW QRS VOLTAGE IN PRECORDIAL LEADS [QRS DEFLECTION < 1.0 mV IN CHEST LEADS] Compared to ECG 02/25/2024 11:47:39 Low QRS voltage now present Left ventricular hypertrophy no longer present ST (T wave) deviation no longer present Early repolarization no longer present -MONITOR CBC AND ELECTROLYTES. 01/18: -Cardiac enzymes negative x3 -Trialed nitro today, did not help, will continue with O2 & Morphine -Awaiting recent (3-4 months ago) echo from outpt cards -Continue with daily labs -Pending cards consult -Continue telemetry 01/19: -Pain considerably improved, switching from morphine to norco -Awaiting recent (3-4 months ago) echo from outpt cards, hopeful to get it tomorrow during business hours -Continue with daily labs -Appreciate cards consult 01/18: #. Start patient on Lasix 40 mg b.i.d.. Home medications reviewed. Continue with losartan 50 mg daily, Jardiance 25 mg daily, atorvastatin 80 mg at bedtime, aspirin 81 mg daily and carvedilol 6.25 mg b.i.d.. Okay to continue this medications. Increase carvedilol to 12.5 #. Continue Lasix 80 mg IV push b.i.d. Continue to urine output. mg b.i.d.. #. Follow-up echocardiogram to evaluate for left ventricular systolic function. -->Lasix has helped considerably -Continue telemetry Cards update today: Overall improvement compared to yesterday with decrease in leg edema and shortness of breath. Continue IV Lasix for 1 more day and then switch to oral tomorrow. Patient is anxious to go home.. (2) Heart failure with preserved ejection fraction: Code(s): I50.30 - Unspecified diastolic (congestive) heart failure Status: Chronic Assessment and Plan: -requesting echo from Cardiology at [facility]. -continue with Jardiance and Coreg -the patient did respond to Lasix. -continue with IV Lasix. -continue to monitor electrolytes and renal function. -daily weight -INR 01/18: Pt with no hx of spironolactone, appreciate cards consult rec -Pt with continued SOB and chest discomfort -Awaiting recent echo results 01/19: Pain and swelling better today on 80mg lasix BID -Cards continued to follow (along with the 80mg lasix, they have also increased coreg to 12.5mg) (3) Hypertension: Qualifiers: Hypertension type: primary hypertension Qualified Code(s): I10 - Essential (primary) hypertension Code(s): I10 - Essential (primary) hypertension Status: Chronic Assessment and Plan: -continue Lasix, losartan, and Coreg pending medication reconciliation. -patient's blood pressure is currently 130/76 01/19: BP better controlled. Cards increased coreg to 12.5mg (4) Anxiety and depression: Code(s): F41.9 - Anxiety disorder, unspecified; F32.A - Depression, unspecified Status: Acute Assessment and Plan: -continue with Lamictal for bipolar and Zyprexa -CONTINUE WITH HYDROXYZINE PENDING MEDICATION RECONCILIATION. -continue with p.r.n. hydroxyzine (5) DM2 (diabetes mellitus, type 2): Qualifiers: Diabetes mellitus intermission coordinator insulin use: unspecified intermission coordinator insulin use status Code(s): E11.9 - Type 2 diabetes mellitus without complications Status: Chronic Assessment and Plan: -check A1c -Accu-Cheks AC and HS with sliding scale insulin. -continue with heart healthy diet 01/18: A1c: 9.8 -Pt states that he has an design technology teacher here at [place], Dr. Bates - last seen in October 2024. Per that note: Current Regimen: Lantus 35 units once daily Humalog SSI Metformin 1000mg twice times a day Jardiance 10mg once daily Past Medications: Mounjaro- stopped due not getting a new scrips Victoza- unsure why stopped Glyburide 2.5 mg once daily Glipizide 5mg once daily Ozempic- nausea Restart Mounjaro Will continue to trend blood sugars and adjust insulin as needed -Pt currently on solu-medrol inpatient 01/19: -Accu-Cheks AC and HS with sliding scale insulin. -continue with heart healthy diet (6) Obstructive sleep apnea: Code(s): G47.33 - Obstructive sleep apnea (adult) (pediatric) Status: Chronic Assessment and Plan: -continue with patient settings as he has a trilogy at home. -WE USE AVAPS COMPARABLE TO TRILOGY SETTING AT HOME. (7) Chronic obstructive pulmonary disease: Code(s): J44.9 - Chronic obstructive pulmonary disease, unspecified Status: Acute Assessment and Plan: -THE PATIENT WAS STARTED ON SOLU-MEDROL. -CONTINUE WITH DUONEBS. -CONTINUE WITH BREZTRI PENDING MEDICATION RECONCILIATION -may consider pulmonology consult 01/19: Pt's SOB and CP much better today (8) Anemia of chronic disease: Code(s): D63.8 - Anemia in other chronic diseases classified elsewhere Status: Acute Assessment and Plan: ANEMIA OF CHRONIC DISEASE. THE PATIENT IS SLIGHTLY IMPROVED FROM HIS BASELINE. Plan Trend labs, sx and pain tx, cards consult, pending echo results Time Spent With Patient Time: 35 Subjective Date/time seen: 01/19/25 1114 Interval history: Admitting hospitalist: This is the obese 49-year-old male patient who has a history of COPD, CHF, myocardial infarction, hypertension and asthma. The patient typically gets his care at [facility]. However today he came to was due to the shortness of breath. The patient denies any fever or chills. He also complained of chest pain or chest pressure. Chest x-ray was read as interstitial pulmonary edema and/or pneumonitis. Chest/abdomen/pelvis CTA was read as no acute cardiopulmonary findings. No acute abdominal pelvic findings. Hepatomegaly with steatosis. His white count is 10.9 is H&H is 13.5 and 41.1. Sodium was 135. Anion gap is 13. His blood sugars 214. Troponins are negative x2. BNP is 75. Viral serologies are negative. The patient was given a neb treatment in the emergency room, Benadryl, Lasix, Solu-Medrol, Reglan, and morphine in the emergency room. The patient is being admitted to observation status on the date of service of 01/18/202501/18: Pt with cpap applied upon my arrival to room, pt states that he has been trying to sleep. Pt continues to c/o chest discomfort and SOB. Pr currently requesting pain medication. Pt reports that his upkeep mechanic is apart of the [facility] and Vascular team. Pt also has an design technology teacher here at [place]. Pt reports that he takes Jardiance, Coreg, and Lasix at home but has never been rx spironolactone. Also reports that he normally has BLE edema, but it is worse today than his baseline (1+ pitting today). 01/19: Pt reports that he is feeling much better today. Pt with CPAP at the bedside and not applied right now. Pt also reporting this his leg swelling is better. No additional complaints today, reports just intermittent CP. agreeable with switching morphine to norco for pain. Review of Systems Review of Systems: All systems reviewed & are unremarkable except as noted in HPI and below Constitutional: Constitutional: Reports as per HPI and Reports no additional constitutional complaints Eyes: Eyes: Reports as per HPI and Reports no additional eye complaints ENT: Reports system reviewed and no additional complaints, except as documented and Reports Normal hearing present Cardiovascular: Cardiovascular: Reports no additional cardiovascular complaints Respiratory: Respiratory: Reports as per HPI and Reports no additional respiratory complaints Gastrointestinal: Gastrointestinal: Reports as per HPI and Reports no additional gastrointestinal complaints Musculoskeletal: Musculoskeletal: Reports no additional musculoskeletal complaints Integumentary/Breasts: Skin/Breast: Reports system reviewed and no additional complaints, except as docu Neurologic: Reports system reviewed and no additional complaints, except as documented and Reports Normal hearing present Psychiatric: Psychiatric: Reports no additional psychiatric complaints and Reports as per HPI Hematologic/Lymphatic: Hematologic/Lymphatic: Reports no additional hematologic/lymphatic complaints Allergic/Immunologic: Allergic/Immunologic: Reports no additional allergic/immunologic complaints Exam Const: General: cooperative, comfortable, no acute distress, well developed, awake, Physically active, well nourished and obese Nutritional Appearance: well nourished and obese morbidly obese Orientation/consciousness: oriented to person, oriented to place, oriented to time and patient oriented x3 Limitations: no limitations HENMT: Head: normal to inspection, No palpable skull fracture present, normocephalic, atraumatic and abrasion Ears: hearing grossly normal bilaterally Eyes: General: appearance normal, both eyes and all related structures Alignment and Position: alignment normal Periorbital: periorbital findings normal Eyelids: eyelids normal Pupils: Equal, round and reactive pupils present Neck: Neck: normal visual inspection, full ROM, no lymphadenopathy and trachea midline Chest: Chest palpation & inspection: normal inspection of the chest Resp: Effort & Inspection: normal respiratory effort and able to speak in c omplete sentences Percussion: percussion normal Other: Coarse BS to RUL & RLL Cardio: Palpation: normal PMI Rate: regular rate Rhythm: regular rhythm Heart sounds: S1 normal heart sound present and S2 normal heart sound present Peripheral pulses: Peripheral pulses 2+ throughout Other: Trace edema to BLE GI: Inspection: normal to inspection Auscultation: normal bowel sounds Rectal Exam: deferred Skin: General skin exam: normal color Lesions: no lesions Rashes: no rashes Trauma: no lacerations or abrasions Wounds: no wounds Hair: normal Nails: normal Neuro: General: oriented to person, oriented to place, oriented to time and patient oriented x3 Cranial nerves: Yes Equal, round and reactive pupils present and Yes Normal hearing present Cognition (Neuro): normal cognition Speech: normal speech Motor exam (neuro): 5/5 motor strength present throughout Sensory Exam: normal sensation Extrem: General: normal to inspection Right upper extremity: normal to inspection and shoulder/upper arm Left upper extremity: normal to inspection and shoulder/upper arm Right lower extremity: edema (trace) Left lower extremity: edema (trace) Psych: Appearance: grossly normal Mental Status: mental status grossly normal Speech and movement: Normal speech and movement present Affect: normal affect Attitude: cooperative Thought process: Normal thought process present Insight: Good insight present (Psych) Judgement: Good judgement present (Psych) Objective Data Vital Signs Vital Signs: Vital Signs - 24 hr 01/18/25 09:11 01/18/25 10:37 01/18/25 12:00 Temperature Pulse Rate 83 105 H 109 H Respiratory Rate 21 H Blood Pressure Pulse Oximetry 97 Oxygen Delivery Fraction of Inspired Oxygen 01/18/25 12:45 01/18/25 13:47 01/18/25 14:55 Temperature 98.8 F Pulse Rate 83 79 85 Respiratory Rate 20 20 20 Blood Pressure 130/76 Pulse Oximetry 98 96 Oxygen Delivery Fraction of Inspired Oxygen 01/18/25 14:55 01/18/25 15:05 01/18/25 16:00 Temperature Pulse Rate 85 83 85 Respiratory Rate 21 H 20 Blood Pressure Pulse Oximetry 97 Oxygen Delivery Fraction of Inspired Oxygen 01/18/25 16:46 01/18/25 17:30 01/18/25 20:00 Temperature Pulse Rate 83 88 94 Respiratory Rate 20 Blood Pressure Pulse Oximetry 97 Oxygen Delivery Fraction of Inspired Oxygen 01/18/25 20:00 01/18/25 20:25 01/18/25 20:33 Temperature Pulse Rate 92 92 Respiratory Rate 24 H 24 H Blood Pressure Pulse Oximetry 98 95 Oxygen Delivery BiPAP Fraction of Inspired Oxygen 35 01/18/25 20:45 01/18/25 20:45 01/18/25 20:46 Temperature 99 F Pulse Rate 95 92 Respiratory Rate 20 24 H Blood Pressure 113/77 Pulse Oximetry 96 98 Oxygen Delivery BiPAP Fraction of Inspired Oxygen 35 01/19/25 00:00 01/19/25 01:55 01/19/25 01:58 Temperature Pulse Rate 84 90 88 Respiratory Rate 28 H 22 H Blood Pressure Pulse Oximetry 96 Oxygen Delivery Fraction of Inspired Oxygen 01/19/25 02:01 01/19/25 04:00 01/19/25 04:09 Temperature 98.1 F Pulse Rate 92 80 75 Respiratory Rate 22 H 20 Blood Pressure 113/56 L Pulse Oximetry 100 Oxygen Delivery Fraction of Inspired Oxygen 01/19/25 04:20 01/19/25 08:18 01/19/25 08:31 Temperature Pulse Rate 86 86 88 Respiratory Rate 28 H 23 H Blood Pressure Pulse Oximetry 97 Oxygen Delivery Fraction of Inspired Oxygen 01/19/25 08:32 01/19/25 08:39 Temperature Pulse Rate 88 90 Respiratory Rate 23 H 22 H Blood Pressure Pulse Oximetry 96 Oxygen Delivery Fraction of Inspired Oxygen Intake/Output Intake/Output: Intake & Output 01/16/25 01/17/25 01/18/25 01/19/25 23:59 23:59 23:59 23:59 Intake Total 1013 650 Output Total 3200 1000 Balance -2187 -350 Meds/Results Medications: Active Medications Generic Name Dose Route Start Last Admin Trade Name Freq PRN Reason Stop Dose Admin Albuterol/Ipratropium 3 ml 01/18/25 08:00 01/19/25 08:28 Ipratropium 0.5 Mg/Albuterol Sulfate 2.5 Mg (Base) Ampul.Neb 3 Ml INHALATION 3 ml Q6HRT JEANNINE Administration Aspirin 81 mg 01/18/25 09:00 01/19/25 08:18 Aspirin 81 Mg Enteric Tablet PO 81 mg DAILY JEANNINE Administration Atorvastatin Calcium 80 mg 01/18/25 09:00 01/19/25 08:18 Atorvastatin 40 Mg Tablet PO 80 mg DAILY JEANNINE Administration Azelastine HCl 2 spray 01/18/25 09:00 01/19/25 08:18 Azelastine Hcl Nasal 0.1% 137 Mcg/Spr 30 Ml Btl NASAL 2 spray BID JEANNINE Administration Bupropion HCl 300 mg 01/18/25 09:00 01/19/25 08:17 Bupropion Hcl Xl (24 Hr) 150 Mg Tabcr PO 300 mg DAILY JEANNINE Administration Carvedilol 12.5 mg 01/18/25 17:00 01/19/25 08:18 Carvedilol 12.5 Mg Tablet PO 12.5 mg BID JEANNINE Administration Dextrose 12.5 gm 01/18/25 04:09 Dextrose 50% 25 Gm/50 Ml Syringe IV PUSH PRN PRN Hypoglycemia Protocol Empagliflozin 25 mg 01/18/25 09:00 01/19/25 08:18 Empagliflozin 25 Mg Tablet PO 25 mg DAILY JEANNINE Administration Enoxaparin Sodium 40 mg 01/18/25 09:00 01/19/25 08:18 Enoxaparin 40 Mg/0.4 Ml Syringe SUB-Q 40 mg DAILY JEANNINE Administration Famotidine 40 mg 01/18/25 21:00 01/18/25 20:27 Famotidine 20 Mg Tablet PO 40 mg HS JEANNINE Administration Fluticasone Propionate 1 spray 01/18/25 09:00 01/19/25 08:18 Fluticasone Propionate 0.05% Na Spr 16 Gm Btl (*Bkc) NASAL 1 spray DAILY JEANNINE Administration Furosemide 80 mg 01/18/25 17:00 01/19/25 08:19 Furosemide Inj 40 Mg/4 Ml Vial IV PUSH 80 mg BID JEANNINE Administration Gabapentin 300 mg 01/18/25 09:00 01/19/25 08:18 Gabapentin 300 Mg Capsule PO 300 mg QID JEANNINE Administration Glucagon 1 mg 01/18/25 04:09 Glucagon For Inj 1 Mg Vial IM PRN PRN Hypoglycemia Protocol Glucose 15 gm 01/18/25 04:09 Glucose Oral Gel 15 Gm Of Glucse In 37.5 Gm Tube PO PRN PRN Hypoglycemia Protocol Hydroxyzine Pamoate 50 mg 01/18/25 07:05 01/18/25 20:30 Hydroxyzine Pamoate 25 Mg Capsule PO 50 mg BID PRN Administration Anxiety Dextrose 1,000 mls @ 100 mls/hr 01/18/25 04:09 Dextrose 5% 1,000 Ml IVPB PRN PRN Hypoglycemia Protocol Insulin Aspart 3 - 6 units 01/18/25 08:00 01/19/25 08:05 Insulin Aspart (*Bkc) 100 Units/Ml SUB-Q 3 units TIDWM JEANNINE Administration Protocol Insulin Glargine 28 units 01/18/25 09:00 01/19/25 08:06 Insulin Glargine (*Bkc) 100 Units/Ml SUB-Q 28 units DAILY JEANNINE Administration Lamotrigine 200 mg 01/18/25 09:00 01/19/25 08:13 Lamotrigine 100 Mg Tablet PO 200 mg BID JEANNINE Administration Losartan Potassium 50 mg 01/18/25 09:00 01/19/25 08:18 Losartan Potassium 50 Mg Tablet PO 50 mg BID JEANNINE Administration Methylprednisolone Sodium Succinate 60 mg 01/18/25 06:00 01/19/25 05:24 Methylprednisolone Sod Succ 125 Mg Vial IV PUSH 60 mg Q6HR JEANNINE Administration Morphine Sulfate 2 mg 01/18/25 20:13 01/19/25 01:49 Morphine Sulfate (*Crx) 4 Mg/Ml Inj IV PUSH 2 mg Q2H PRN Administration Pain Rated 7-10 Nitroglycerin 0.4 mg 01/18/25 11:33 Nitroglycerin Sl 0.4 Mg Tablet SUBLINGUAL Q5MIN PRN Chest Pain Fluticasone/Salmeterol 2 puff 01/18/25 08:00 01/19/25 08:31 Fluticasone/Salmeterol 115-21 Mcg Inhaler 1 Puff INHALATION 2 puff Q12HRT JEANNINE Administration Ziprasidone 40 mg 01/18/25 21:00 01/18/25 20:26 Ziprasidone Hcl 20 Mg Capsule PO 40 mg HS JEANNINE Administration Radiology Results: ITS Impressions Chest X-Ray 01/17/25 19:13 IMPRESSION: 1. Interstitial pulmonary edema and/or pneumonitis. Chest/Abdomen/Pelvis CTA 01/17/25 19:44 IMPRESSION: CHEST- 1. No acute cardiopulmonary findings. ABDOMEN/PELVIS- 1. No acute abdominopelvic findings. 2. Hepatomegaly, with steatosis. 3. Other findings as above. Labs Labs: Laboratory Results - last 24 hr 01/18/25 01/18/25 01/18/25 11:24 16:38 20:48 WBC RBC Hgb Hct MCV MCH MCHC RDW Plt Count MPV Immature Gran % (Auto) Neut % (Auto) Lymph % (Auto) [place] % (Auto) Eos % (Auto) Baso % (Auto) Lymph # (Auto) [place] # (Auto) Eos # (Auto) Baso # (Auto) Abs Immat Gran (auto) Absolute Neuts (auto) Absolute Nucleated RBC Nucleated RBC % Sodium Potassium Chloride Carbon Dioxide Anion Gap BUN Creatinine Estim Creat Clear Calc Estimated GFR Glucose POC Capillary Glucose 335 H 211 H 270 H Calcium Total Bilirubin AST ALT Alkaline Phosphatase Total Protein Albumin 01/19/25 01/19/25 05:06 07:51 WBC 13.3 H RBC 4.54 L Hgb 13.6 L Hct 41.7 L MCV 91.9 MCH 30.0 MCHC 32.6 RDW 14.4 Plt Count 212 MPV 10.2 Immature Gran % (Auto) 0.6 H Neut % (Auto) 83.5 H Lymph % (Auto) 11.9 L [place] % (Auto) 3.9 Eos % (Auto) 0.0 Baso % (Auto) 0.1 L Lymph # (Auto) 1.58 [place] # (Auto) 0.5 Eos # (Auto) 0.0 Baso # (Auto) 0.0 Abs Immat Gran (auto) 0.08 H Absolute Neuts (auto) 11.1 H Absolute Nucleated RBC 0.000 Nucleated RBC % 0.0 Sodium 134 L Potassium 4.3 Chloride 97 L Carbon Dioxide 23 Anion Gap 14 H BUN 20 Creatinine 0.93 Estim Creat Clear Calc 148 Estimated GFR > 60 Glucose 244 H POC Capillary Glucose 224 H Calcium 9.1 Total Bilirubin 0.6 AST 34 ALT 45 Alkaline Phosphatase 127 H Total Protein 7.9 Albumin 4.2 Quality VTE Prophylaxis VTE prophylaxis: pharmacologic ordered
--- NOTE | 2025-01-19 12:40 | P.PNCA_ITS ---
Progress Note: A&P Assessment and Plan (1) Chronic respiratory failure with hypoxia: Code(s): J96.11 - Chronic respiratory failure with hypoxia Status: Acute (2) Uncontrolled diabetes mellitus: Qualifiers: Diabetes mellitus type: type 2 Glycemic state: with hyperglycemia Qualified Code(s): E11.65 - Type 2 diabetes mellitus with hyperglycemia Status: Acute (3) Acute on chronic respiratory failure: Qualifiers: Respiratory failure complication: hypoxia Qualified Code(s): J96.21 - Acute and chronic respiratory failure with hypoxia Code(s): J96.20 - Acute and chronic respiratory failure, unspecified whether with hypoxia or hypercapnia Status: Acute (4) Chronic respiratory failure with hypoxia and hypercapnia: Code(s): J96.11 - Chronic respiratory failure with hypoxia; J96.12 - Chronic respiratory failure with hypercapnia Status: Acute (5) Obesity hypoventilation syndrome: Code(s): E66.2 - Morbid (severe) obesity with alveolar hypoventilation Status: Acute (6) Acute heart failure with preserved ejection fraction: Code(s): I50.31 - Acute diastolic (congestive) heart failure Status: Acute Plan Assessment: Morbidly obese patient with BMI of 56 of present shortness of breath chest ti ghtness. 1. Patient has negative cardiac enzymes. EKG does not show acute ST changes. Appears to be noncardiac. 2. BNP is completely normal with this patient, which is possible in obese patient. Previous echocardiogram shows a large left ventricle with preserved systolic function. Patient also has moderate ventricular hypertrophy. This suggests possibility of having diastolic dysfunction. Patient has history of COPD and asthma. Shortness of breath likely combination of chronic anemia and exacerbation of COPD. 3. Morbid obesity. Patient weighs 187 kg with BMI of 56. Patient has history of obstructive sleep apnea. Known history of chronic hypoxic respiratory failure. Patient remains on BiPAP mask. 4. Elevated blood sugar in the range of 290-330 mg/dL. Patient likely has uncontrolled diabetes. 5. History of hypertension and hypertensive heart disease chronic diastolic dysfunction with moderate left ventricular hypertrophy based on echocardiogram. Chest x-ray suggestive of pulmonary edema. BNP is relatively low secondary to obesity. 6. Mildly elevated LFTs likely secondary to diabetes and fatty liver. Recommendations: #. Currently blood pressure is 113/56 mm of mercury heart rate is 75 per minute. #. Start patient on Lasix 80 mg b.i.d.. Home medications reviewed. Continue with losartan 50 mg daily, Jardiance 25 mg daily, atorvastatin 80 mg at bedtime, aspirin 81 mg daily and carvedilol 6.25 mg b.i.d.. Okay to continue this medications. Increase carvedilol to 12.5 #. Continue Lasix 80 mg IV push b.i.d. Continue to urine output. mg b.i.d.. #. Follow-up echocardiogram to evaluate for left ventricular systolic function. #. DVT prophylaxis Pred #. Continue to use CPAP at night for obstructive sleep apnea at this setting he used at home. #. Treat underlying COPD exacerbation with the nebulizer treatment and other pulmonary medications. Agree with BiPAP mask. #. Laboratory data reviewed. A previous count 13.3. Hemoglobin is 13.6 and platelets are normal. Sodium 134, potassium 4.3, BUN is 20 and creatinine 0.9. Blood glucose remains elevated Overall improvement compared to yesterday with decrease in leg edema and shortness of breath. Continue IV Lasix for 1 more day and then switch to oral tomorrow. Patient is anxious to go home.. Subjective Date/time seen: 01/19/25 12:40 Interval history: Review of HPI: Patient is a 49-year-old male admitted via emergency room on 01/17/2025 complaints of shortness of breath and chest pain. Past medical history significant for history of hypertension, COPD, microinfarction the past, congestive heart failure and asthma. No complaints of fever or chills. Patient started having shortness of breath, chest tightness and tachypneic this morning. Patient also had a feeling of diaphoresis. Initial workup in the emergency room revealed blood pressure 176/98 mm of mercury and heart rate of 94 per minute. Respirations 18 per minute with normal O2 saturation. Admitting laboratory data and appears content 0.9, hemoglobin 13.5, platelets are normal. Sodium 133, potassium is 4.2, BUN is 12, creatinine 0.7. His AST and ALT are mildly elevated is 62 and 59. Her current present and 41 point admitting troponin I was negative x2. ProBNP was only 75. Admitting EKG revealed normal sinus rhythm with heart rate of 88 per minute and no significant ST or T-wave changes Chest x-ray revealed normal heart size with diffusely increased interstitial marking. The chest x-ray impression reported as interstitial pulmonary edema and or pneumonitis. His previous echocardiogram on 04/13/2021 has revealed severely enlarged left ventricle with ejection fraction in the range of 50-55% to. Moderate left ventricular hypertrophy and abnormal diastolic function. Left atrium is mildly enlarged. With mild pulmonary hypertension estimated at 37 mm of mercury. Mildly dilated aortic root noted at the level of sinus. Subjective: Patient was examined at the bedside. Patient is already feeling better IV Lasix with increasing leg edema and decreased shortness of breath. Remains on BiPAP mask. Review of Systems Review of Systems: Twelve point review of system was completed. Pertinent positive and negative findings per HPI. Constitutional negative for decreased weight and decreased leg edema. Cardiac negative for chest pain and negative for shortness of breath orthopnea on BiPAP mask. Pulmonary positive for shortness of breath and. On BiPAP mask tolerating well with decreased shortness of breath Gastrointestinal, neurovascular is negative. Exam Narrative: Patient was examined at the bedside. Patient is awake alert and appears comfortable without chest pain, shortness of breath orthopnea. Patient is morbidly obese and weighs 187 kg with BMI of 56. Using BiPAP mask. Head and neck examination is unremarkable. Head is atraumatic. Sclerae is nonicteric. ENT examination is negative. Lungs reveal decreased air entry bilaterally there is no wheezing or crepitation. Heart sounds reveal normal S1-S2 soft systolic murmur. There is no S3 or S4. Rhythm is regular. Abdomen is soft and nontender. There is no hepatosplenomegaly. Bowel sounds present. Extremities reveal 2+ edema bilaterally. Improved from yesterday. Distal pulses intact. There is no clubbing or cyanosis Pred Neurovascular is intact without any focal neurological signs. Skin and musculoskeletal is intact. Objective Data Vital Signs Vital Signs: Vital Signs - 24 hr 01/18/25 12:45 01/18/25 13:47 01/18/25 14:55 Temperature 37.1 C Pulse Rate 83 79 85 Respiratory Rate 20 20 20 Blood Pressure 130/76 Pulse Oximetry 98 96 Oxygen Delivery Oxygen Flow Rate Fraction of Inspired Oxygen 01/18/25 14:55 01/18/25 15:05 01/18/25 16:00 Temperature Pulse Rate 85 83 85 Respiratory Rate 21 H 20 Blood Pressure Pulse Oximetry 97 Oxygen Delivery Oxygen Flow Rate Fraction of Inspired Oxygen 01/18/25 16:46 01/18/25 17:30 01/18/25 20:00 Temperature Pulse Rate 83 88 94 Respiratory Rate 20 Blood Pressure Pulse Oximetry 97 Oxygen Delivery Oxygen Flow Rate Fraction of Inspired Oxygen 01/18/25 20:00 01/18/25 20:25 01/18/25 20:33 Temperature Pulse Rate 92 92 Respiratory Rate 24 H 24 H Blood Pressure Pulse Oximetry 98 95 Oxygen Delivery BiPAP Oxygen Flow Rate Fraction of Inspired Oxygen 35 01/18/25 20:45 01/18/25 20:45 01/18/25 20:46 Temperature 37.2 C Pulse Rate 95 92 Respiratory Rate 20 24 H Blood Pressure 113/77 Pulse Oximetry 96 98 Oxygen Delivery BiPAP Oxygen Flow Rate Fraction of Inspired Oxygen 35 01/19/25 00:00 01/19/25 01:55 01/19/25 01:58 Temperature Pulse Rate 84 90 88 Respiratory Rate 28 H 22 H Blood Pressure Pulse Oximetry 96 Oxygen Delivery Oxygen Flow Rate Fraction of Inspired Oxygen 01/19/25 02:01 01/19/25 04:00 01/19/25 04:09 Temperature 36.7 C Pulse Rate 92 80 75 Respiratory Rate 22 H 20 Blood Pressure 113/56 L Pulse Oximetry 100 Oxygen Delivery Oxygen Flow Rate Fraction of Inspired Oxygen 01/19/25 04:20 01/19/25 08:00 01/19/25 08:00 Temperature Pulse Rate 86 104 H Respiratory Rate 28 H 20 Blood Pressure Pulse Oximetry 97 98 Oxygen Delivery Nasal Cannula Oxygen Flow Rate 2 Fraction of Inspired Oxygen 01/19/25 08:18 01/19/25 08:31 01/19/25 08:32 Temperature Pulse Rate 86 88 88 Respiratory Rate 23 H 23 H Blood Pressure Pulse Oximetry 96 Oxygen Delivery Oxygen Flow Rate Fraction of Inspired Oxygen 01/19/25 08:39 Temperature Pulse Rate 90 Respiratory Rate 22 H Blood Pressure Pulse Oximetry Oxygen Delivery Oxygen Flow Rate Fraction of Inspired Oxygen Intake/Output Intake/Output: Intake & Output 01/16/25 01/17/25 01/18/25 01/19/25 23:59 23:59 23:59 23:59 Intake Total 1013 770 Output Total 3200 1000 Balance -2180 -283 Meds/Results Medications: Active Medications Generic Name Dose Route Start Last Admin Trade Name Freq PRN Reason Stop Dose Admin Hydrocodone Bitart/Acetaminophen 1 tab 01/19/25 11:15 Hydrocodone/Acetaminophen (*Crx) 5-325 Mg Tablet PO Q4H PRN Pain Rated 4-6 Albuterol/Ipratropium 3 ml 01/18/25 08:00 01/19/25 08:28 Ipratropium 0.5 Mg/Albuterol Sulfate 2.5 Mg (Base) Ampul.Neb 3 Ml INHALATION 3 ml Q6HRT JEANNINE Administration Aspirin 81 mg 01/18/25 09:00 01/19/25 08:18 Aspirin 81 Mg Enteric Tablet PO 81 mg DAILY JEANNINE Administration Atorvastatin Calcium 80 mg 01/18/25 09:00 01/19/25 08:18 Atorvastatin 40 Mg Tablet PO 80 mg DAILY JEANNINE Administration Azelastine HCl 2 spray 01/18/25 09:00 01/19/25 08:18 Azelastine Hcl Nasal 0.1% 137 Mcg/Spr 30 Ml Btl NASAL 2 spray BID JEANNINE Administration Bupropion HCl 300 mg 01/18/25 09:00 01/19/25 08:17 Bupropion Hcl Xl (24 Hr) 150 Mg Tabcr PO 300 mg DAILY JEANNINE Administration Carvedilol 12.5 mg 01/18/25 17:00 01/19/25 08:18 Carvedilol 12.5 Mg Tablet PO 12.5 mg BID JEANNINE Administration Dextrose 12.5 gm 01/18/25 04:09 Dextrose 50% 25 Gm/50 Ml Syringe IV PUSH PRN PRN Hypoglycemia Protocol Empagliflozin 25 mg 01/18/25 09:00 01/19/25 08:18 Empagliflozin 25 Mg Tablet PO 25 mg DAILY JEANNINE Administration Enoxaparin Sodium 40 mg 01/18/25 09:00 01/19/25 08:18 Enoxaparin 40 Mg/0.4 Ml Syringe SUB-Q 40 mg DAILY JEANNINE Administration Famotidine 40 mg 01/18/25 21:00 01/18/25 20:27 Famotidine 20 Mg Tablet PO 40 mg HS JEANNINE Administration Fluticasone Propionate 1 spray 01/18/25 09:00 01/19/25 08:18 Fluticasone Propionate 0.05% Na Spr 16 Gm Btl (*Bkc) NASAL 1 spray DAILY JEANNINE Administration Furosemide 80 mg 01/18/25 17:00 01/19/25 08:19 Furosemide Inj 40 Mg/4 Ml Vial IV PUSH 80 mg BID JEANNINE Administration Gabapentin 300 mg 01/18/25 09:00 01/19/25 12:11 Gabapentin 300 Mg Capsule PO 300 mg QID JEANNINE Administration Glucagon 1 mg 01/18/25 04:09 Glucagon For Inj 1 Mg Vial IM PRN PRN Hypoglycemia Protocol Glucose 15 gm 01/18/25 04:09 Glucose Oral Gel 15 Gm Of Glucse In 37.5 Gm Tube PO PRN PRN Hypoglycemia Protocol Hydroxyzine Pamoate 50 mg 01/18/25 07:05 01/18/25 20:30 Hydroxyzine Pamoate 25 Mg Capsule PO 50 mg BID PRN Administration Anxiety Dextrose 1,000 mls @ 100 mls/hr 01/18/25 04:09 Dextrose 5% 1,000 Ml IVPB PRN PRN Hypoglycemia Protocol Insulin Aspart 3 - 6 units 01/18/25 08:00 01/19/25 12:16 Insulin Aspart (*Bkc) 100 Units/Ml SUB-Q 6 units TIDWM JEANNINE Administration Protocol Insulin Glargine 28 units 01/18/25 09:00 01/19/25 08:06 Insulin Glargine (*Bkc) 100 Units/Ml SUB-Q 28 units DAILY JEANNINE Administration Lamotrigine 200 mg 01/18/25 09:00 01/19/25 08:13 Lamotrigine 100 Mg Tablet PO 200 mg BID JEANNINE Administration Losartan Potassium 50 mg 01/18/25 09:00 01/19/25 08:18 Losartan Potassium 50 Mg Tablet PO 50 mg BID JEANNINE Administration Methylprednisolone Sodium Succinate 60 mg 01/18/25 06:00 01/19/25 12:11 Methylprednisolone Sod Succ 125 Mg Vial IV PUSH 60 mg Q6HR JEANNINE Administration Nitroglycerin 0.4 mg 01/18/25 11:33 Nitroglycerin Sl 0.4 Mg Tablet SUBLINGUAL Q5MIN PRN Chest Pain Fluticasone/Salmeterol 2 puff 01/18/25 08:00 01/19/25 08:31 Fluticasone/Salmeterol 115-21 Mcg Inhaler 1 Puff INHALATION 2 puff Q12HRT JEANNINE Administration Ziprasidone 40 mg 01/18/25 21:00 01/18/25 20:26 Ziprasidone Hcl 20 Mg Capsule PO 40 mg HS JEANNINE Administration Radiology Results: ITS Impressions Chest X-Ray 01/17/25 19:13 IMPRESSION: 1. Interstitial pulmonary edema and/or pneumonitis. Chest/Abdomen/Pelvis CTA 01/17/25 19:44 IMPRESSION: CHEST- 1. No acute cardiopulmonary findings. ABDOMEN/PELVIS- 1. No acute abdominopelvic findings. 2. Hepatomegaly, with steatosis. 3. Other findings as above. Labs Labs: Laboratory Results - last 24 hr 01/18/25 01/18/25 01/19/25 16:38 20:48 05:06 WBC 13.3 H RBC 4.54 L Hgb 13.6 L Hct 41.7 L MCV 91.9 MCH 30.0 MCHC 32.6 RDW 14.4 Plt Count 212 MPV 10.2 Immature Gran % (Auto) 0.6 H Neut % (Auto) 83.5 H Lymph % (Auto) 11.9 L [place] % (Auto) 3.9 Eos % (Auto) 0.0 Baso % (Auto) 0.1 L Lymph # (Auto) 1.58 [place] # (Auto) 0.5 Eos # (Auto) 0.0 Baso # (Auto) 0.0 Abs Immat Gran (auto) 0.08 H Absolute Neuts (auto) 11.1 H Absolute Nucleated RBC 0.000 Nucleated RBC % 0.0 Sodium 134 L Potassium 4.3 Chloride 97 L Carbon Dioxide 23 Anion Gap 14 H BUN 20 Creatinine 0.93 Estim Creat Clear Calc 148 Estimated GFR > 60 Glucose 244 H POC Capillary Glucose 211 H 270 H Calcium 9.1 Total Bilirubin 0.6 AST 34 ALT 45 Alkaline Phosphatase 127 H Total Protein 7.9 Albumin 4.2 01/19/25 01/19/25 07:51 11:47 WBC RBC Hgb Hct MCV MCH MCHC RDW Plt Count MPV Immature Gran % (Auto) Neut % (Auto) Lymph % (Auto) [place] % (Auto) Eos % (Auto) Baso % (Auto) Lymph # (Auto) [place] # (Auto) Eos # (Auto) Baso # (Auto) Abs Immat Gran (auto) Absolute Neuts (auto) Absolute Nucleated RBC Nucleated RBC % Sodium Potassium Chloride Carbon Dioxide Anion Gap BUN Creatinine Estim Creat Clear Calc Estimated GFR Glucose POC Capillary Glucose 224 H 352 H Calcium Total Bilirubin AST ALT Alkaline Phosphatase Total Protein Albumin
[2025-01-19] MEDS: HYDROcodone/acetaminophen (*CRX) 5-325 MG TABLET 1 TAB PO ×2 (16:01→22:09)
[2025-01-19] MEDS: FAMOTIDINE 20 MG TABLET 40 MG PO (22:05)
[2025-01-19] MEDS: ZIPRASIDONE HCL 20 MG CAPSULE 40 MG PO (22:05)
[2025-01-19] MEDS: INSULIN ASPART (*BKC) 100 UNITS/ML 8 UNITS SUB-Q (23:55)
[2025-01-20] VITALS (15 sets, daily range): BP systolic 127–146; BP diastolic 57–80; PULSE 51–94; RESP 16–28; TEMP 36.4–36.8; O2SAT 95–97
[2025-01-20] MEDS: IPRATROPIUM 0.5 MG/ALBUTEROL SULFATE 2.5 MG (BASE) AMPUL.NEB 3 ML INHALATION ×3 (02:26→13:56)
[2025-01-20 05:42] LABS: Hematocrit 42.0 % (42.0-52.0); Hemoglobin 13.8 g/dL (14.0-18.0); Immature Granulocyte Percent A 0.7 % (0-0.5); Lymphocytes Absolute Auto 1.31 K/mm3 (0.9-3.2); Mean Corpuscular HGB Conc 32.9 g/dl (32-36); Mean Corpuscular Hemoglobin 29.7 pg (26-34); Mean Corpuscular Volume 90.5 fl (80-100); Nucleated Red Blood Cells Absolute Auto 0.000 K/mm3 (0.0-0.012); Nucleated Red Blood Cells Perc 0.0 % (0.0-0.2); Platelet Count Result 209 k/mm3 (150-375); Red Blood Count 4.64 M/mm3 (4.6-6.20); White Blood Count 11.1 K/mm3 (4.5-10.0)
[2025-01-20 06:02] LABS: Alanine Aminotransferase 37 U/L (6-50); Albumin Level 4.2 g/dL (3.5-5.1); Alkaline Phosphatase 116 U/L (38-126); Anion Gap 12 mmol/L (4-12); Aspartate Amino Transferase 25 U/L (17-59); Bilirubin,Total 0.6 mg/dL (0.2-1.3); Blood Urea Nitrogen 34 mg/dL (9-20); Calcium 8.8 mg/dL (8.4-10.2); Carbon Dioxide 26 mmol/L (22-30); Chloride 94 mmol/L (98-107); Estimated CRCL calculation 134 ml/min; Estimated Glomerular Filt Rate > 60; Glucose 304 mg/dL (65-110); Potassium 4.3 mmol/L (3.4-5.0); Sodium 132 mmol/L (137-145); Total Protein 7.8 g/dL (6.3-8.2)
[2025-01-20] MEDS: FLUTICASONE/SALMETEROL 115-21 MCG INHALER 1 PUFF 2 PUFF INHALATION (07:47)
[2025-01-20] MEDS: INSULIN ASPART (*BKC) 100 UNITS/ML SUB-Q ×2 (09:36→12:08)
[2025-01-20] MEDS: buPROPion HCL XL (24 HR) 150 MG TABCR 300 MG PO (09:37)
[2025-01-20] MEDS: AZELASTINE HCL NASAL 0.1% 137 MCG/SPR 30 ML BTL 2 SPRAY NASAL (09:37)
[2025-01-20] MEDS: LOSARTAN POTASSIUM 50 MG TABLET PO (09:37)
[2025-01-20] MEDS: ENOXAPARIN 40 MG/0.4 ML SYRINGE SUB-Q (09:37)
[2025-01-20] MEDS: ATORVASTATIN 40 MG TABLET 80 MG PO (09:37)
[2025-01-20] MEDS: ASPIRIN 81 MG ENTERIC TABLET PO (09:37)
[2025-01-20] MEDS: EMPAGLIFLOZIN 25 MG TABLET PO (09:37)
[2025-01-20] MEDS: GABAPENTIN 300 MG CAPSULE PO ×2 (09:37→12:11)
[2025-01-20] MEDS: FLUTICASONE PROPIONATE 0.05% NA SPR 16 GM BTL (*BKC) 1 SPRAY NASAL (09:38)
[2025-01-20] MEDS: FUROSEMIDE INJ 40 MG/4 ML VIAL 80 MG IV PUSH (09:38)
[2025-01-20] MEDS: INSULIN GLARGINE (*BKC) 100 UNITS/ML 28 UNITS SUB-Q (09:39)
--- NOTE | 2025-01-20 10:06 | P.PNCA_ITS ---
Progress Note: A&P Assessment and Plan (1) Chronic respiratory failure with hypoxia: Code(s): J96.11 - Chronic respiratory failure with hypoxia Status: Acute (2) Uncontrolled diabetes mellitus: Qualifiers: Diabetes mellitus type: type 2 Glycemic state: with hyperglycemia Qualified Code(s): E11.65 - Type 2 diabetes mellitus with hyperglycemia Status: Acute (3) Acute on chronic respiratory failure: Qualifiers: Respiratory failure complication: hypoxia Qualified Code(s): J96.21 - Acute and chronic respiratory failure with hypoxia Code(s): J96.20 - Acute and chronic respiratory failure, unspecified whether with hypoxia or hypercapnia Status: Acute (4) Chronic respiratory failure with hypoxia and hypercapnia: Code(s): J96.11 - Chronic respiratory failure with hypoxia; J96.12 - Chronic respiratory failure with hypercapnia Status: Acute (5) Obesity hypoventilation syndrome: Code(s): E66.2 - Morbid (severe) obesity with alveolar hypoventilation Status: Acute (6) Acute heart failure with preserved ejection fraction: Code(s): I50.31 - Acute diastolic (congestive) heart failure Status: Acute Plan Assessment: Morbidly obese patient with BMI of 56 of present shortness of breath chest ti ghtness. 1. Patient has negative cardiac enzymes. EKG does not show acute ST changes. Appears to be noncardiac. 2. BNP is completely normal with this patient, which is possible in obese patient. Previous echocardiogram shows a large left ventricle with preserved systolic function. Patient also has moderate ventricular hypertrophy. This suggests possibility of having diastolic dysfunction. Patient has history of COPD and asthma. Shortness of breath likely combination of chronic anemia and exacerbation of COPD. 3. Morbid obesity. Patient weighs 187 kg with BMI of 56. Patient has history of obstructive sleep apnea. Known history of chronic hypoxic respiratory failure. Patient remains on BiPAP mask. 4. Elevated blood sugar in the range of 290-330 mg/dL. Patient likely has uncontrolled diabetes. 5. History of hypertension and hypertensive heart disease chronic diastolic dysfunction with moderate left ventricular hypertrophy based on echocardiogram. Chest x-ray suggestive of pulmonary edema. BNP is relatively low secondary to obesity. 6. Mildly elevated LFTs likely secondary to diabetes and fatty liver. Recommendations: #. Currently blood pressure is 146/80 mm mercury and heart rate is 86 per minute. #. Start patient on Lasix 80 mg b.i.d.. Home medications reviewed. Continue with losartan 50 mg daily, Jardiance 25 mg daily, atorvastatin 80 mg at bedtime, aspirin 81 mg daily and carvedilol 6.25 mg b.i.d.. Okay to continue this medications. Increase carvedilol to 12.5 p.o. b.i.d.. #. Discontinue IV Lasix. Start patient on Lasix 40 mg b.i.d. at home and Zaroxolyn 2.5 mg Monday only if needed for weight gain more than 5 lb or increasing leg edema. #. Follow-up echocardiogram to evaluate for left ventricular systolic function. #. DVT prophylaxis Pred #. Continue to use CPAP at night for obstructive sleep apnea at this setting he used at home. #. Treat underlying COPD exacerbation with the nebulizer treatment and other pulmonary medications. Agree with BiPAP mask. #. Laboratory data reviewed. A previous count 13.3. Hemoglobin is 13.6 and platelets are normal. Sodium 134, potassium 4.3, BUN is 20 and creatinine 0.9. Blood glucose remains elevated Patient has improved significantly and okay to discharge home on oral Lasix 40 mg b.i.d. and Zaroxolyn as needed. Sodium 132, potassium is 4.3, BUN is 34 and creatinine is 1.04. Continue to monitor her renal function potassium and magnesium of patient. Subjective Date/time seen: 01/20/25 10:06 Interval history: Review of HPI: Patient is a 49-year-old male admitted via emergency room on 01/17/2025 complaints of shortness of breath and chest pain. Past medical history significant for history of hypertension, COPD, microinfarction the past, congestive heart failure and asthma. No complaints of fever or chills. Patient started having shortness of breath, chest tightness and tachypneic this morning. Patient also had a feeling of diaphoresis. Initial workup in the emergency room revealed blood pressure 176/98 mm of mercury and heart rate of 94 per minute. Respirations 18 per minute with normal O2 saturation. Admitting laboratory data and appears content 0.9, hemoglobin 13.5, platelets are normal. Sodium 133, potassium is 4.2, BUN is 12, creatinine 0.7. His AST and ALT are mildly elevated is 62 and 59. Her current present and 41 point admitting troponin I was negative x2. ProBNP was only 75. Admitting EKG revealed normal sinus rhythm with heart rate of 88 per minute and no significant ST or T-wave changes Chest x-ray revealed normal heart size with diffusely increased interstitial marking. The chest x-ray impression reported as interstitial pulmonary edema and or pneumonitis. His previous echocardiogram on 04/13/2021 has revealed severely enlarged left ventricle with ejection fraction in the range of 50-55% to. Moderate left ventricular hypertrophy and abnormal diastolic function. Left atrium is mildly enlarged. With mild pulmonary hypertension estimated at 37 mm of mercury. Mildly dilated aortic root noted at the level of sinus. Subjective: Patient was examined at the bedside . Patient is off the BiPAP mask and breathing is stable. No leg edema noted. Patient is anxious to go home. Vital signs are stable. Blood pressure is 146/80 and heart rate is 86 per minute. Review of Systems Review of Systems: Twelve point review of system was completed. Pertinent positive and negative findings per HPI. Constitutional negative for decreased weight and decreased leg edema. Cardiac negative for chest pain and negative for shortness of breath orthopnea on BiPAP mask. Pulmonary positive for shortness of breath and. On BiPAP mask tolerating well with decreased shortness of breath Gastrointestinal, neurovascular is negative. Exam Narrative: Patient was examined at the bedside. Patient is awake alert and appears comfortable without chest pain, shortness of breath orthopnea. Patient is morbidly obese and weighs 187 kg with BMI of 56. Using BiPAP mask. Head and neck examination is unremarkable. Head is atraumatic. Sclerae is nonicteric. ENT examination is negative. Lungs reveal decreased air entry bilaterally there is no wheezing or crepitation. Heart sounds reveal normal S1-S2 soft systolic murmur. There is no S3 or S4. Rhythm is regular. Abdomen is soft and nontender. There is no hepatosplenomegaly. Bowel sounds present. Extremities reveal minimal edema bilaterally. Improved from yesterday. Distal pulses intact. There is no clubbing or cyanosis Pred Neurovascular is intact without any focal neurological signs. Skin and musculoskeletal is intact. Objective Data Vital Signs Vital Signs: Vital Signs - 24 hr 01/19/25 12:00 01/19/25 14:00 01/19/25 14:23 Temperature 36.1 C L Pulse Rate 100 85 Respiratory Rate 18 Blood Pressure 130/79 Pulse Oximetry 94 96 Oxygen Delivery BiPAP Fraction of Inspired Oxygen 35 01/19/25 14:24 01/19/25 14:25 01/19/25 16:00 Temperature Pulse Rate 90 92 86 Respiratory Rate 22 H 22 H Blood Pressure Pulse Oximetry 96 Oxygen Delivery Fraction of Inspired Oxygen 01/19/25 16:02 01/19/25 20:00 01/19/25 20:00 Temperature Pulse Rate 92 84 Respiratory Rate Blood Pressure Pulse Oximetry 97 Oxygen Delivery BiPAP Fraction of Inspired Oxygen 01/19/25 20:03 01/19/25 20:38 01/19/25 20:42 Temperature 36.6 C Pulse Rate 85 85 85 Respiratory Rate 16 22 H 22 H Blood Pressure 104/60 Pulse Oximetry 93 95 Oxygen Delivery Fraction of Inspired Oxygen 01/19/25 20:48 01/20/25 00:00 01/20/25 02:25 Temperature Pulse Rate 88 61 51 L Respiratory Rate 23 H 26 H Blood Pressure Pulse Oximetry 97 Oxygen Delivery Fraction of Inspired Oxygen 01/20/25 02:27 01/20/25 02:32 01/20/25 04:00 Temperature Pulse Rate 51 L 54 L 67 Respiratory Rate 26 H 23 H Blood Pressure Pulse Oximetry Oxygen Delivery Fraction of Inspired Oxygen 01/20/25 05:34 01/20/25 07:47 01/20/25 07:52 Temperature 36.4 C L Pulse Rate 70 80 80 Respiratory Rate 20 23 H 23 H Blood Pressure 127/57 L Pulse Oximetry 97 97 Oxygen Delivery Fraction of Inspired Oxygen 01/20/25 07:56 01/20/25 08:00 01/20/25 08:43 Temperature 36.8 C Pulse Rate 86 69 86 Respiratory Rate 23 H 16 Blood Pressure 146/80 H Pulse Oximetry 95 Oxygen Delivery Fraction of Inspired Oxygen 01/20/25 09:37 Temperature Pulse Rate 94 Respiratory Rate Blood Pressure Pulse Oximetry Oxygen Delivery Fraction of Inspired Oxygen Intake/Output Intake/Output: Intake & Output 01/17/25 01/18/25 01/19/25 01/20/25 23:59 23:59 23:59 23:59 Intake Total 1013 1490 1140 Output Total 3200 4900 1300 Balance -2187 -3410 -160 Meds/Results Medications: Active Medications Generic Name Dose Route Start Last Admin Trade Name Freq PRN Reason Stop Dose Admin Hydrocodone Bitart/Acetaminophen 1 tab 01/19/25 11:15 01/19/25 22:09 Hydrocodone/Acetaminophen (*Crx) 5-325 Mg Tablet PO 1 tab Q4H PRN Administration Pain Rated 4-6 Albuterol/Ipratropium 3 ml 01/18/25 08:00 01/20/25 07:46 Ipratropium 0.5 Mg/Albuterol Sulfate 2.5 Mg (Base) Ampul.Neb 3 Ml INHALATION 3 ml Q6HRT JEANNINE Administration Aspirin 81 mg 01/18/25 09:00 01/20/25 09:37 Aspirin 81 Mg Enteric Tablet PO 81 mg DAILY JEANNINE Administration Atorvastatin Calcium 80 mg 01/18/25 09:00 01/20/25 09:37 Atorvastatin 40 Mg Tablet PO 80 mg DAILY JEANNINE Administration Azelastine HCl 2 spray 01/18/25 09:00 01/20/25 09:37 Azelastine Hcl Nasal 0.1% 137 Mcg/Spr 30 Ml Btl NASAL 2 spray BID JEANNINE Administration Bupropion HCl 300 mg 01/18/25 09:00 01/20/25 09:37 Bupropion Hcl Xl (24 Hr) 150 Mg Tabcr PO 300 mg DAILY JEANNINE Administration Carvedilol 12.5 mg 01/18/25 17:00 01/20/25 09:37 Carvedilol 12.5 Mg Tablet PO 12.5 mg BID JEANNINE Administration Dextrose 12.5 gm 01/18/25 04:09 Dextrose 50% 25 Gm/50 Ml Syringe IV PUSH PRN PRN Hypoglycemia Protocol Empagliflozin 25 mg 01/18/25 09:00 01/20/25 09:37 Empagliflozin 25 Mg Tablet PO 25 mg DAILY JEANNINE Administration Enoxaparin Sodium 40 mg 01/18/25 09:00 01/20/25 09:37 Enoxaparin 40 Mg/0.4 Ml Syringe SUB-Q 40 mg DAILY JEANNINE Administration Famotidine 40 mg 01/18/25 21:00 01/19/25 22:05 Famotidine 20 Mg Tablet PO 40 mg HS JEANNINE Administration Fluticasone Propionate 1 spray 01/18/25 09:00 01/20/25 09:38 Fluticasone Propionate 0.05% Na Spr 16 Gm Btl (*Bkc) NASAL 1 spray DAILY JEANNINE Administration Furosemide 80 mg 01/18/25 17:00 01/20/25 09:38 Furosemide Inj 40 Mg/4 Ml Vial IV PUSH 80 mg BID JEANNINE Administration Gabapentin 300 mg 01/18/25 09:00 01/20/25 09:37 Gabapentin 300 Mg Capsule PO 300 mg QID JEANNINE Administration Glucagon 1 mg 01/18/25 04:09 Glucagon For Inj 1 Mg Vial IM PRN PRN Hypoglycemia Protocol Glucose 15 gm 01/18/25 04:09 Glucose Oral Gel 15 Gm Of Glucse In 37.5 Gm Tube PO PRN PRN Hypoglycemia Protocol Hydroxyzine Pamoate 50 mg 01/18/25 07:05 01/18/25 20:30 Hydroxyzine Pamoate 25 Mg Capsule PO 50 mg BID PRN Administration Anxiety Dextrose 1,000 mls @ 100 mls/hr 01/18/25 04:09 Dextrose 5% 1,000 Ml IVPB PRN PRN Hypoglycemia Protocol Insulin Aspart 4 - 8 units 01/20/25 08:00 01/20/25 09:36 Insulin Aspart (*Bkc) 100 Units/Ml SUB-Q 5 units TIDWM JEANNINE Administration Protocol Insulin Glargine 28 units 01/18/25 09:00 01/20/25 09:39 Insulin Glargine (*Bkc) 100 Units/Ml SUB-Q 28 units DAILY JEANNINE Administration Lamotrigine 200 mg 01/18/25 09:00 01/20/25 09:37 Lamotrigine 100 Mg Tablet PO 200 mg BID JEANNINE Administration Losartan Potassium 50 mg 01/18/25 09:00 01/20/25 09:37 Losartan Potassium 50 Mg Tablet PO 50 mg BID JEANNINE Administration Methylprednisolone Sodium Succinate 60 mg 01/18/25 06:00 01/20/25 06:42 Methylprednisolone Sod Succ 125 Mg Vial IV PUSH 60 mg Q6HR JEANNINE Administration Nitroglycerin 0.4 mg 01/18/25 11:33 Nitroglycerin Sl 0.4 Mg Tablet SUBLINGUAL Q5MIN PRN Chest Pain Fluticasone/Salmeterol 2 puff 01/18/25 08:00 01/20/25 07:47 Fluticasone/Salmeterol 115-21 Mcg Inhaler 1 Puff INHALATION 2 puff Q12HRT JEANNINE Administration Ziprasidone 40 mg 01/18/25 21:00 01/19/25 22:05 Ziprasidone Hcl 20 Mg Capsule PO 40 mg HS JEANNINE Administration Radiology Results: ITS Impressions Chest X-Ray 01/17/25 19:13 IMPRESSION: 1. Interstitial pulmonary edema and/or pneumonitis. Chest/Abdomen/Pelvis CTA 01/17/25 19:44 IMPRESSION: CHEST- 1. No acute cardiopulmonary findings. ABDOMEN/PELVIS- 1. No acute abdominopelvic findings. 2. Hepatomegaly, with steatosis. 3. Other findings as above. Labs Labs: Laboratory Results - last 24 hr 01/19/25 01/19/25 01/19/25 11:47 17:11 20:02 WBC RBC Hgb Hct MCV MCH MCHC RDW Plt Count MPV Immature Gran % (Auto) Neut % (Auto) Lymph % (Auto) [place] % (Auto) Eos % (Auto) Baso % (Auto) Lymph # (Auto) [place] # (Auto) Eos # (Auto) Baso # (Auto) Abs Immat Gran (auto) Absolute Neuts (auto) Absolute Nucleated RBC Nucleated RBC % Sodium Potassium Chloride Carbon Dioxide Anion Gap BUN Creatinine Estim Creat Clear Calc Estimated GFR Glucose POC Capillary Glucose 352 H 340 H 462 H Calcium Total Bilirubin AST ALT Alkaline Phosphatase Total Protein Albumin 01/19/25 01/20/25 01/20/25 23:09 01:21 05:17 WBC 11.1 H RBC 4.64 Hgb 13.8 L Hct 42.0 MCV 90.5 MCH 29.7 MCHC 32.9 RDW 14.4 Plt Count 209 MPV 10.2 Immature Gran % (Auto) 0.7 H Neut % (Auto) 83.3 H Lymph % (Auto) 11.8 L [place] % (Auto) 4.1 Eos % (Auto) 0.0 Baso % (Auto) 0.1 L Lymph # (Auto) 1.31 [place] # (Auto) 0.5 Eos # (Auto) 0.0 Baso # (Auto) 0.0 Abs Immat Gran (auto) 0.08 H Absolute Neuts (auto) 9.2 H Absolute Nucleated RBC 0.000 Nucleated RBC % 0.0 Sodium 132 L Potassium 4.3 Chloride 94 L Carbon Dioxide 26 Anion Gap 12 BUN 34 H D Creatinine 1.04 Estim Creat Clear Calc 134 Estimated GFR > 60 Glucose 304 H POC Capillary Glucose 393 H 320 H Calcium 8.8 Total Bilirubin 0.6 AST 25 ALT 37 Alkaline Phosphatase 116 Total Protein 7.8 Albumin 4.2 01/20/25 08:13 WBC RBC Hgb Hct MCV MCH MCHC RDW Plt Count MPV Immature Gran % (Auto) Neut % (Auto) Lymph % (Auto) [place] % (Auto) Eos % (Auto) Baso % (Auto) Lymph # (Auto) [place] # (Auto) Eos # (Auto) Baso # (Auto) Abs Immat Gran (auto) Absolute Neuts (auto) Absolute Nucleated RBC Nucleated RBC % Sodium Potassium Chloride Carbon Dioxide Anion Gap BUN Creatinine Estim Creat Clear Calc Estimated GFR Glucose POC Capillary Glucose 276 H Calcium Total Bilirubin AST ALT Alkaline Phosphatase Total Protein Albumin
--- NOTE | 2025-01-20 12:30 | PC.NURSE ---
On 01/20/25, the student, Lizbeth Bridges, provided care and completed [facility] documentation on this patient. I have reviewed the student's documentation and agree with the findings.
--- NOTE | 2025-01-28 11:16 | P.DS_ITS ---
DS: Admitting Diagnosis Discharge Date 01/20/25 Admitting Diagnosis CHF/COPD exacerbation DS: Discharge Diagnosis Discharge Diagnosis (1) Chest pain: Code(s): R07.9 - Chest pain, unspecified Status: Acute Assessment and Plan: -the patient's cardiac enzymes were negative x2. I will repeat another 1 this a.m.. -CT of the chest/abdomen/pelvis was read as1. No acute cardiopulmonary findings. ABDOMEN/PELVIS- 1. No acute abdominopelvic findings. 2. Hepatomegaly, with steatosis. 3. Other findings as above. The patient was negative for PE. -the patient typically gets his care at [facility]. He stated that he has had an echo within the last 6 months. [facility] records for echo has been requested. -patient has had 3 cardiac catheterization in the past with his last 1 being 2 years ago. He stated that he has had a heart attack at a young age but has not had any intervention. -cardiology has been consulted for further recommendations. Although his cardiac enzymes have been negative the patient continues to have some chest pressure. -EKG 96 WV 207 QRSd 98 QT 331 QTc 420 --[place]-- P 91 QRS 12 T 44 SINUS RHYTHM LOW QRS VOLTAGE IN PRECORDIAL LEADS [QRS DEFLECTION < 1.0 mV IN CHEST LEADS] Compared to ECG 02/25/2024 11:47:39 Low QRS voltage now present Left ventricular hypertrophy no longer present ST (T wave) deviation no longer present Early repolarization no longer present -MONITOR CBC AND ELECTROLYTES. 01/18: -Cardiac enzymes negative x3 -Trialed nitro today, did not help, will continue with O2 & Morphine -Awaiting recent (3-4 months ago) echo from outpt cards -Continue with daily labs -Pending cards consult -Continue telemetry 01/19: -Pain considerably improved, switching from morphine to norco -Awaiting recent (3-4 months ago) echo from outpt cards, hopeful to get it tomorrow during business hours -Continue with daily labs -Appreciate cards consult 01/18: #. Start patient on Lasix 40 mg b.i.d.. Home medications reviewed. Continue with losartan 50 mg daily, Jardiance 25 mg daily, atorvastatin 80 mg at bedtime, aspirin 81 mg daily and carvedilol 6.25 mg b.i.d.. Okay to continue this medications. Increase carvedilol to 12.5 #. Continue Lasix 80 mg IV push b.i.d. Continue to urine output. mg b.i.d.. #. Follow-up echocardiogram to evaluate for left ventricular systolic function. -->Lasix has helped considerably -Continue telemetry Cards update today: Overall improvement compared to yesterday with decrease in leg edema and shortness of breath. Continue IV Lasix for 1 more day and then switch to oral tomorrow. Patient is anxious to go home.. 01/20: Pt reports that he is almost back to baseline and that he is feeling so much better!. Pt denies SOB and CP and states that his leg swelling is now at his baseline. (2) Heart failure with preserved ejection fraction: Code(s): I50.30 - Unspecified diastolic (congestive) heart failure Status: Chronic Assessment and Plan: -requesting echo from Cardiology at [facility]. -continue with Jardiance and Coreg -the patient did respond to Lasix. -continue with IV Lasix. -continue to monitor electrolytes and renal function. -daily weight -INR 01/18: Pt with no hx of spironolactone, appreciate cards consult rec -Pt with continued SOB and chest discomfort -Awaiting recent echo results 01/19: Pain and swelling better today on 80mg lasix BID -Cards continued to follow (along with the 80mg lasix, they have also increased coreg to 12.5mg) 01/20: Pt reports back to his baseline. Cards update: Recommendations: #. Currently blood pressure is 146/80 mm mercury and heart rate is 86 per minute. #. Start patient on Lasix 80 mg b.i.d.. Home medications reviewed. Continue with losartan 50 mg daily, Jardiance 25 mg daily, atorvastatin 80 mg at bedtime, aspirin 81 mg daily and carvedilol 6.25 mg b.i.d.. Okay to continue this medications. Increase carvedilol to 12.5 p.o. b.i.d.. #. Discontinue IV Lasix. Start patient on Lasix 40 mg b.i.d. at home and Zaroxolyn 2.5 mg Monday only if needed for weight gain more than 5 lb or increasing leg edema. #. Follow-up echocardiogram to evaluate for left ventricular systolic function. (3) Hypertension: Qualifiers: Hypertension type: primary hypertension Qualified Code(s): I10 - Essential (primary) hypertension Code(s): I10 - Essential (primary) hypertension Status: Chronic Assessment and Plan: -continue Lasix, losartan, and Coreg pending medication reconciliation. 01/19: BP better controlled. Cards increased coreg to 12.5mg 01/20: Patient's blood pressure is currently 146/80, continue with cards plan for increase of coreg to 12.5mg upon d/c. (4) Anxiety and depression: Code(s): F41.9 - Anxiety disorder, unspecified; F32.A - Depression, unspecified Status: Acute Assessment and Plan: -continue with Lamictal for bipolar and Zyprexa -CONTINUE WITH HYDROXYZINE PENDING MEDICATION RECONCILIATION. -continue with p.r.n. 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 Bates - last seen in October 2024. Per that note: Current Regimen: Lantus 35 units once daily Humalog SSI Metformin 1000mg twice times a day Jardiance 10mg once daily Past Medications: Mounjaro- stopped due not getting a new scrips Victoza- unsure why stopped Glyburide 2.5 mg once daily Glipizide 5mg once daily Ozempic- nausea Restart Mounjaro Will continue to trend blood sugars and adjust insulin as needed -Pt currently on solu-medrol inpatient 01/19: -Accu-Cheks AC and HS with sliding scale insulin. -continue with heart healthy diet 01/20: -Blood sugar readings still high inpatient, unknown if baseline? of note, pt has been on steroids while inpt. To continue outpt med regimen with strict PCP/endo f/u outpt. (6) Obstructive sleep apnea: Code(s): G47.33 - Obstructive sleep apnea (adult) (pediatric) Status: Chronic Assessment and Plan: -continue with patient settings as he has a trilogy at home. -WE USE AVAPS COMPARABLE TO TRILOGY SETTING AT HOME. 01/20: Pt to be discharged home today and continue home cpap use. (7) Chronic obstructive pulmonary disease: Code(s): J44.9 - Chronic obstructive pulmonary disease, unspecified Status: Acute Assessment and Plan: -THE PATIENT WAS STARTED ON SOLU-MEDROL. -CONTINUE WITH DUONEBS. -CONTINUE WITH BREZTRI PENDING MEDICATION RECONCILIATION -may consider pulmonology consult 01/19: Pt's SOB and CP much better today 01/20: Pt cleared to discharge today, denies SOB. Will continue home regimen. (8) Anemia of chronic disease: Code(s): D63.8 - Anemia in other chronic diseases classified elsewhere Status: Acute Assessment and Plan: ANEMIA OF CHRONIC DISEASE. THE PATIENT IS SLIGHTLY IMPROVED FROM HIS BASELINE. Plan Discharge with meds rec by cards with outpt f/u. DS: Summary Hospital Course Reason for hospitalization: CHF/COPD exacerbation Hospital Course: Marco Antonio is an obese 49-year-old male patient who has a history of COPD, CHF, myocardial infarction, hypertension and asthma. The patient typically gets his care at [facility]. However on 01/17 he came to the ED c/o shortness of breath. The patient denies any fever or chills. He also complained of chest pain or chest pressure. In the ED, a CXR was obtained and was read as interstitial pulmonary edema and/or pneumonitis. Chest/abdomen/pelvis CTA was read as no acute cardiopulmonary findings. No acute abdominal pelvic findings. Hepatomegaly with steatosis. His white count is 10.9 is H&H is 13.5 and 41.1. Sodium was 135. Anion gap is 13. His blood sugars 214. Troponins are negative x2. BNP is 75. Viral serologies are negative. The patient was given a neb treatment in the emergency room, Benadryl, Lasix, Solu-Medrol, Reglan, and morphine in the emergency room. The patient is being admitted to observation status on the date of service of 01/18/2025. While inpatient, pt initially was still c/o of CP and SOB and reported decrease of the sx with wearing his CPAP and receiving lasix, morphine, and solu-medrol, denies relief with sublingual nitro. Cards has also been consulted on the case and has been apart of daily care. Over the course of 01/17 to 01/20, pts sx have all resolved. While inpt, his blood sugar has been increased, this may be his new baseline, due to acute illness, or due to inpatient steroid use to help treat COPD sx. Pt was discharged with the plan to continue to take his home medications, 40mg lasix BID, increase coreg to 12.5mg BID, and add metolazone 2.5mg and/or Monday once daily as needed only for weight gain of more than 5lb or increased leg swelling via cards recs as well as f/u with his established disease intervention specialist and gas appliance servicer. Pt denies CP and SOB or any issues upon D/C. Status at Discharge Overall status at discharge: patient is progressing back to baseline Time Spent with Patient Time attestation: Total time spent providing and/or coordinating discharge services: 40 Exam Const: General: cooperative, comfortable, no acute distress, well developed, awake and obese Nutritional Appearance: well nourished and obese morbidly obese Orientation/consciousness: oriented to person, oriented to place, oriented to time and patient oriented x3 Limitations: no limitations HENMT: Head: normal to inspection, normocephalic, atraumatic and abrasion Ears: hearing grossly normal bilaterally Eyes: General: appearance normal, both eyes and all related structures Sclera: sclerae normal Pupils: Equal, round and reactive pupils present Neck: Neck: normal visual inspection and trachea midline Carotids: no bruits Chest: Chest palpation & inspection: normal inspection of the chest Resp: Effort & Inspection: normal respiratory effort and able to speak in complete sentences Auscultation: clear to auscultation bilaterally Cardio: Palpation: normal PMI Rate: regular rate Rhythm: regular rhythm Heart sounds: S1 normal heart sound present and S2 normal heart sound present Peripheral pulses: Peripheral pulses 2+ throughout Other: Trace edema to BLE GI: Inspection: normal to inspection Auscultation: normal bowel sounds Rectal Exam: deferred Skin: General skin exam: normal color Wounds: no wounds Neuro: General: patient oriented x3 Cranial nerves: Yes Normal hearing present Cognition (Neuro): normal cognition Speech: normal speech Motor exam (neuro): Normal motor muscle tone present throughout Sensory Exam: normal sensation Extrem: General: normal to inspection Right upper extremity: normal to inspection and shoulder/upper arm Left upper extremity: normal to inspection and shoulder/upper arm Right lower extremity: edema (trace) Details: 3+ Left lower extremity: edema (trace) Details: 3+ Psych: Appearance: grossly normal Mental Status: mental status grossly normal Speech and movement: Normal speech and movement present Affect: normal affect Attitude: cooperative Thought process: Normal thought process present Insight: Good insight present (Psych) Judgement: Good judgement present (Psych) DS: Data Data Completed and Pending Completed studies during hospitalization: Labs, CXR, C/A/P CT Imaging Radiologist's impression: CXR: IMPRESSION: 1. Interstitial pulmonary edema and/or pneumonitis. CT C/A/P: IMPRESSION: CHEST- 1. No acute cardiopulmonary findings. ABDOMEN/PELVIS- 1. No acute abdominopelvic findings. 2. Hepatomegaly, with steatosis. 3. Other findings as above. Discharge Plan Discharge Attending physician on discharge: Johnathan Humphreys Consulting providers: Jose Rasmussen; César Swanson; Sudha Vigil; Lucia Hatch; Masood Rios Discharging Clinician: Lilian Perez Anticipated Discharge Date/Time: 01/20/25 13:00 Patient Disposition: Home Activity: august shower Diet: heart healthy and diabetic Discharge Instructions: 1. Recap from cardiology: -Start to take your lasix (furosemide) 40mg twice daily -Increase your coreg (carvedilol) 12.5mg twice daily -Add daily metolazone (zaroxolyn) 2.5mg Monday, Monday, and/or Monday once daily as needed only for weight gain of more than 5lb or increased leg swelling 2. Follow-up with your disease intervention specialist. Continue to check your blood pressure and blood sugar at home if applicable. Keep your scheduled appts with your primary care provider and any specialist that you may see. Return to the emergency department if you develop sudden shortness of breath, chest pain, a fever of greater than 101.5, or nausea, vomiting, abd pain, or diarrhea that does not go away. Follow-up with your primary care provider within 1-2 weeks, they will want to be updated on your inpatient stay in the hospital. Thank you for [facility] for your healthcare needs. Patient Instructions: Metolazone (By mouth), Furosemide (By mouth), Carvedilol (By mouth), Heart Failure (DC) Patient Language: Sudanese Stand Alone Forms: General Discharge Information Follow-up/Referrals: Akanksha,Marilee Galdamez MD [Primary Care Provider, Unknown] - 2 Weeks Discharge Medications: New carvedilol [Coreg] 12.5 mg Tablet 12.5 mg PO BID 90 Days Qty: 180 0RF metolazone 2.5 mg tablet 2.5 mg PO .MWF Qty: 90 0RF Rx Instructions: Monday, and/or Monday only if needed for weight gain more than 5 lb or increasing leg swelling Continued Gvoke HypoPen 2-Pack 1 mg/0.2 mL auto-injector 1 mg subcut ONCE Qty: 0.4 4RF Patient Comments: has never used Rx Instructions: may repeat once after 15 minutes if no response (DME) Skin Prep Wipes Misc See Rx Instructions .Route Qty: 50 3RF Rx Instructions: As directed buspirone 30 mg tablet 30 mg PO BID Rx Instructions: TAKE 1 TAB TWICE A DAY azelastine 137 mcg (0.1 %) [place],Non-Aerosol 137 mcg INTRANASAL BID Rx Instructions: Administer 2 puffs into each nostril ziprasidone HCl 60 mg Capsule 60 mg PO BID Rx Instructions: give with food (meal/snack) furosemide [Lasix] 40 mg tablet 40 mg PO BID Rx Instructions: TAKE 1 TAB TWICE DAILY albuterol sulfate 90 mcg/actuation HFA aerosol inhaler 2 puff inhalation Q6-8H PRN (Reason: shortness of breath or wheezing) atorvastatin 80 mg tablet 80 mg PO DAILY Rx Instructions: TAKE 1 TABLET BY MOUTH EVERY DAY bupropion HCl 300 mg tablet extended release 24 hr 300 mg PO DAILY Rx Instructions: Take 1 tablet every day by oral route in the morning doxycycline hyclate 100 mg tablet 100 mg PO BIDWM Rx Instructions: Take 1 capsule by mouth twice daily with food fluticasone propionate 50 mcg/actuation spray,suspension 1 spray INTRANASAL DAILY Rx Instructions: use 1 spray in each nostril nasally every day famotidine 40 mg tablet 40 mg PO HS Rx Instructions: Take 1 tab po hs fluticasone propion-salmeterol [Advair HFA] 115-21 mcg/actuation HFA aerosol inhaler 2 puff INHALATION BID Rx Instructions: inhale 2 puffs by mouth twice daily gabapentin 300 mg capsule 300 mg PO QID Rx Instructions: TAKE 1 CAPSULE BY MOUTH FOUR TIMES DAILY losartan 50 mg tablet 50 mg PO BID Rx Instructions: TAKE 1 TABLET BID DAILY metformin 500 mg tablet 500 mg PO BID Rx Instructions: TAKE 1 TAB BID DAILY ipratropium-albuterol 0.5 mg-3 mg(2.5 mg base)/3 mL solution for nebulization 3 ml INHALATION QID Rx Instructions: USE 1 VIAL VIA NEBULIZER FOUR TIMES DAILY omeprazole 40 mg capsule,delayed release(DR/EC) 40 mg PO HS Rx Instructions: take 1 capsule by mouth at bedtime peg 3350-electrolytes [id number] -5.86 gram recon soln Mounjaro 2.5 mg/0.5 mL pen injector 2.5 mg SUBCUT WEEKLY Rx Instructions: Administer 2.5 mg under the skin weekly for 4 weeks Mounjaro 5 mg/0.5 mL pen injector 5 mg SUBCUT WEEKLY Rx Instructions: ADMINISTER 5 MG UNDER THE SKIN WEEKLY buspirone 10 mg tablet 10 mg PO TID Rx Instructions: TAKE 2 TABS THREE TIMES A DAY ziprasidone HCl 40 mg capsule 40 mg PO HS Rx Instructions: TAKE 1 CAPSULE AT BEDTIME metformin [Glucophage XR] 500 mg tablet extended release 24 hr 1,000 mg PO BID Rx Instructions: TAKE 2 TABS TWICE DAILY lamotrigine 200 mg tablet 200 mg PO BID insulin glargine [Lantus Solostar U-100 Insulin] 100 unit/mL (3 mL) insulin pen 50 unit subcut HS Jardiance 25 mg tablet 25 mg PO DAILY Rx Instructions: TAKE 1 TAB BY MOUTH DAILY albuterol sulfate 1.25 mg/3 mL Solution For Nebulization 2.5 mg INHALATION Q4H PRN (Reason: Shortness Of Breath) aspirin 81 mg tablet,delayed release (DR/EC) 81 mg PO DAILY hydroxyzine pamoate 50 mg Capsule 50 mg PO BID PRN (Reason: Anxiety) Rx Instructions: TAKE 1-2 TAB TWICE A DAY PRN Mounjaro 7.5 mg/0.5 mL pen injector 7.5 mg subcut WEEKLY Qty: 6 1RF Discontinued carvedilol 6.25 mg tablet 6.25 mg PO BID Rx Instructions: TAKE 1 TAB TWICE DAILY Date of admission: 01/19/25 13:25 Primary Care Provider: Akanksha,Marilee Galdamez Admitting Provider: Johnathan Humphreys Attending physician on admission: Lilian Perez Condition: Stable Quality VTE Prophylaxis VTE prophylaxis: pharmacologic ordered Hospitalist MIPS Heart Failure (Exclusion) Patient has history of Heart Transplant or Left Ventricular Assistive Device?: No IF YES, STOP HERE Heart Failure (Qualifier) Patient has current or prior documentation of LVEF less than or equal to 40%, or mod/servere depressed LVSF?: No IF NO, STOP HERE
== END 2025-01-20 14:35 | disposition home or self-care (01) | DRG 291 ==
LOC: ANHED 19:53 → ANH2MED 01-18 01:36
PROVIDERS: Emergency Medicine; Nurse Practitioner; Admitting Provider Internal Medicine; Emergency Provider Registered Nurse; PCP Emergency Medicine
DX: I11.0 Hypertensive heart disease with heart failure (principal); I50.33 Acute on chronic diastolic (congestive) heart failure; E66.2 Morbid (severe) obesity with alveolar hypoventilation; J44.1 Chronic obstructive pulmonary disease with (acute) exacerbation; Z68.43 Body mass index [BMI] 50.0-59.9, adult; J96.12 Chronic respiratory failure with hypercapnia; J96.11 Chronic respiratory failure with hypoxia; D63.8 Anemia in other chronic diseases classified elsewhere; E11.65 Type 2 diabetes mellitus with hyperglycemia; E78.5 Hyperlipidemia, unspecified; F41.9 Anxiety disorder, unspecified; I25.2 Old myocardial infarction; K76.0 Fatty (change of) liver, not elsewhere classified; K21.9 Gastro-esophageal reflux disease without esophagitis; Z87.891 Personal history of nicotine dependence; Z79.82 Long term (current) use of aspirin; Z20.822 Contact with and (suspected) exposure to COVID-19; Z79.4 Long term (current) use of insulin; Z79.84 Long term (current) use of oral hypoglycemic drugs; Z79.85 Long-term (current) use of injectable non-insulin antidiabetic drugs
CPT/HCPCS: 36415; 71045; 71275; 74177; 80048; 80053; 82948; 83036; 83690; 83880; 84443; 84484; 85025; 85027; 85610; 85730; 87637; 93005; 94002; 94003; 94640; 96372; 96374; 96375; 96376; 99285; A9270; G0378; J1200; J1650; J1815; J1938; J2270; J2765; J2919; Q9967

== ENCOUNTER 2025-03-31 00:49 | Day surgery (SDC) | payer MEDICARE, MEDICAID, SELFPAY ==
--- OUTSIDE RECORDS SUMMARY | 2025-02-10 07:14 | XMS_ITS | Continuity of Care Document ---
Author Organization [facility] Address [address] [place] [phone] Phone Care Team Providers Care Powder Cutting Operator Name Role Phone Minesh OLGUIN, FACC, FSCAI, José Manuel Unavailable Unava ilable Allergies, Adverse Reactions, Alerts Substance Reaction Status Criticality PENICILLIN Active No Information Medications Medication Instructions Dosage Effective Dates (start - stop) Status Comments buspirone 30 mg tablet take 1 pill twice a day - Active carvedilol 12.5 mg tablet take 1 tablet by oral route 2 times every day with food 12.5 MG - Active lamotrigine 200 mg tablet take 1 pill at night - Active losartan 50 mg tablet take 1 pill twice a day - Active Mounjaro 7.5 mg/0.5 mL subcutaneous pen injector inject (7.5MG) by subcutaneous route every week 7.5 MG - Active ziprasidone 60 mg capsule take 1 pill in the am and 1 pill at night - Active ziprasidone 40 mg capsule take 1 pill at night with the 60 mg a day - Active famotidine 40 mg tablet take 1 tablet by oral route every day at bedtime 40 MG - Active furosemide 40 mg tablet TAKE 1 TABLET BY TWICE DAILY - Active atorvastatin 80 mg tablet TAKE 1 TABLET BY MOUTH EVERY DAY - Active albuterol sulfate HFA 90 mcg/actuation aerosol inhaler INHALE 2 PUFFS BY MOUTH EVERY 6 TO 8 HOURS NEEDED - Active gabapentin 300 mg capsule TAKE 1 CAPSULE BY MOUTH FOUR TIMES DAILY - Active hydroxyzine pamoate 50 mg capsule TAKE ONE CAPSULE BY MOUTH IN THE MORNING AND TWO CAPSULES AT BEDTIME NEEDED FOR SLEEP / ANXIETY - Active bupropion HCl XL 300 mg 24 hr tablet, extended release TAKE 1 TABLET BY MOUTH EVERY DAY IN THE MORNING - Active metformin 500 mg tablet TAKE 1 TABLET BY MOUTH TWICE DAILY - Active aspirin 81 mg tablet,delayed release TAKE 1 TABLET BY MOUTH EVERY DAY - Active Humalog KwikPen U-200 Insulin 200 unit/mL (3 mL) subcutaneous - Active Jardiance 25 mg tablet TAKE 1 TABLET BY MOUTH DAILY - Active Breztri Aerosphere 160 mcg-9mcg-4.8mcg/actuat ion HFA aerosol inhaler INHALE 2 PUFFS BY MOUTH TWICE DAILY - Active duloxetine 60 mg capsule,delayed release TAKE 1 CAPSULE BY MOUTH DAILY AT BEDTIME - Active Lantus U-100 Insulin 100 unit/mL subcutaneous solution ADMINISTER 30 UNITS UNDER THE SKIN AT BEDTIME - Active Procedures Procedure Date NTRPROF PH1/NTRNET/EHR 5/> Complex e/m visit add on OFFICE/OUTPATIENT VISIT, EST NTRPROF PH1/NTRNET/EHR 5/> ELECTROCARDIOGRAM REPORT Complex e/m visit add on OFFICE/OUTPATIENT VISIT, EST TTE W/DOPPLER, COMPLETE RESEARCH LOWER EXTREMITY STUDY Advance Directives Directive Yes / No Effective Date File Name No Information Encounters Encounter Description Practice Location Reason(s) For Visit Diagnoses Date Provider Providers Copied on Encounter NTRPROF PH1/NTRNET/E HR 5/> [facility] , [address] [place] [address], [id number] , tel: [phone] [facility] Encounter for preprocedural cardiovascular examination Jan- 5 Saidalorene Georges. [address] , [address] [place] [address], [id number], [place]. tel:[phone] OFFICE/OUTPA TIENT VISIT, EST [facility], [address] [place] [address], [id number] , tel: [phone] [facility] follow up (chief complaint) Dyspnea on exertionAngina pectorisEssential hypertensionCardiom yopathyObesity Jan- 3 5 Saidalorene Georges. [address], Suite [facility], [place], [place], [id number], [place]. tel:[phone] Referring Provider: Marilee Vale, [address] [place] [address], [id number]. tel:[phone] NTRPROF PH1/NTRNET/E HR 5/> [facility], [address] [place] [address], [id number] , [place] tel: [phone] [facility] Encounter for preprocedural cardiovascular examination Sep-0 5 Minesh José Manuel. [address] , Suite [facility], [place], [place], [id number], [place]. tel:[phone] [facility], [address] [place] [address], [id number] , tel: [phone] [facility] OP No Information Sep-0 5 Kalvaitis Saulius. [address] [place] [address], [place], [place], [id number], [place]. tel:[phone] Referring Provider: Marilee Vale, [address] [place] [address], [address]. tel:[phone] OFFICE/OUTPA TIENT VISIT, EST [facility], [address] [place] [address], [id number] , tel: [phone] [facility] Follow Up of cardiology exam (chief complaint)b il leg swelling (chief complaint)S OB (chief complaint) Heart failure, unspecifiedEssentia l (primary) hypertensionCOPD 5 Minesh Georges. [address], [address] [place] [address], [id number], [place]. tel:[phone] Referring Provider: Marilee Vale, [address] [place] [address], [id number]. tel:[phone] [facility], [address] [place] [address], [id number] , [place] tel: [phone] [facility] Essential (primary) hypertension 5 Minesh Georges. [address] , [address] [place] [address], [id number], [place]. tel:[phone] Referring Provider: Marilee Vale, [address] [place] [address], [address]. tel:[phone] [facility], [address] [place] [address], [id number] , [place] tel: [phone] [facility] No Information 5 Minesh Georges. [address] , [address] [place] [address], [id number], [place]. tel:[phone] Referring Provider: José Manuel Rose, [address] [place] [address], [id number] . tel:[phone] [facility], [address] [place] [address], [id number] , [place] tel: [phone] [facility] No Information 5 Minesh Georges. [address] , [address] [place] [address], [id number], [place]. tel:[phone] Referring Provider: Marilee Vale, [address] [place] [address], [address]. tel:[phone] [facility], [address] [place] [address], [id number] , tel: [phone] [facility] No Information 5 Ramson Bradly. [address], [place], [place], [id number], [place]. tel:[phone] Family History Family Member Type Diagnosis Age At Onset Father Problem (finding) Hypertension Brother Problem (finding) Diabetes mellitus Father Problem (finding) Heart disease Father Problem (finding) Diabetes mellitus Brother Problem (finding) Hypertension Payers Payer name Insurance type Covered republican ID Phylicia davila(s) HUMANJessee CI [id number] Social History Type Description Quantity Date Captured Comments Alcohol Use Details Unknown Caffeine Use Details Unknown Tobacco Use Status No Information Smoking Status No Information Sex Male Chief Complaint And Reason For Visit No Information Reason For Referral Reason For Referral No Information Plan Of Treatment Date Type Action Status Appointment Jerzy Leahy BOOKED Future Order: Lab Order proBNP ( [id number]), Ordered on: Ordered Future Order: Radiology Order At erial Lower Extremity ([id number]), Sent on: Sent History Of Present Illness Encounter Date Complaint History Of Prese nt Illness follow up janina legs and ank les swelling dc from [place] for copd Follow Up of cardiology exam janina leg swelling SOB Functional Status Date Functional Assessmen t No Information Instructions Date Instruction Additional Infor mation No Information Assessments Type Assessment Date No Information Patient Care Teams Name Effective Dates (start - stop) Status Members No Information
--- OUTSIDE RECORDS SUMMARY | 2025-02-10 07:14 | XMS_ITS | Continuity of Care Document ---
Author Organization [facility] Address [address] [place] [address] Phone Care Team Providers Care Merchandise Worker Name Role Phone Minesh OLGUIN, FACC, FSCAI, [...] e/m visit add on OFFICE/OUTPATIENT VISIT, EST ELECTROCARDIOGRAM REPORT NTRPROF PH1/NTRNET/EHR 5/> ELECTROCARDIOGRAM REPORT Complex e/m visit add on OFFICE/OUTPATIENT VISIT, EST TTE W/DOPPLER, COMPLETE RESEARCH LOWER EXTREMITY STUDY Advance Directives Directive Yes / No Effective Date File Name No Information Encounters Encounter Description Practice Location Reason(s) For Visit Diagnoses Date Provider Providers Copied on Encounter NTRPROF PH1/NTRNET/E HR 5/> [facility], [address] [place] [address], [id number] , tel: [phone] [facility] Encounter for preprocedural cardiovascular examination Jan-2 5 Minesh Georges. [address] , [address] [place] [address], [id number], . tel:[phone] OFFICE/OUTPA TIENT VISIT, [facility], [address] [place] [address], [id number] , tel: [phone] [facility] follow up (chief complaint) Dyspnea on exertionAngina pectorisEssential hypertensionCardiom yopathyObesity Jan- [address], [address] [place] [address], [id number], [place]. tel:[phone] Referring Provider: Marilee Vale, [address] [place] [address], [id number]. tel:[phone] [facility], [address] [place] [address], [id number] , tel: [phone] [facility] No Information Jan-0 5 Kalvaitis Saulius. [address] [place] [address], [id number], . tel:[phone] Referring Provider: Marilee Vale, [address] [place] [address], [address]. tel:[phone] NTRPROF PH1/NTRNET/E HR 5/> [facility], [address] [place] [address], [id number] , tel: [phone] [facility] Encounter for preprocedural cardiovascular examination Sep-0 5 Minesh Georges. [address], [address] [place] [address], [id number], [place]. tel:[phone] [facility], [address] [place] [address], [id number] , tel: [phone] [facility] No Information Sep-0 5 Kalvaitis Saulius. [address] [place] [address], [place], [place], [id number], [place]. tel:[phone] Referring Provider: Marilee Vale, [address] [place] [address], [address]. tel:[phone] OFFICE/OUTPA TIENT VISIT, [facility], [address] [place] [address], [id number] , [place] tel: [phone] [facility] Follow Up of cardiology exam (chief complaint)b il leg swelling (chief complaint)S OB (chief complaint) Heart failure, unspecifiedEssentia l (primary) hypertensionCOPD 5 Minesh Georges. [address] , [address], [id number], [place]. tel:[phone] Referring Provider: Marilee Vale, [address] [place] [address], [address]. tel:[phone] [facility] , [address] [place] [address], [id number] , [place] tel: [phone] [facility] Essential (primary) hypertension 5 Minesh Georges. [address] , [address] [place] [address], [id number], [place]. tel:[phone] Referring Provider: Marilee Vale, [address] [place] [address], [address]. tel:[phone] [facility], [address] [place] [address], [id number] , [place] tel: [phone] [facility] Research No Information 5 Minesh Georges. [address], [address] [place] [address], [id number], [place]. tel:[phone] Referring Provider: José Manuel Rose, [address] [place] [address], [id number] . tel:[phone] [facility], [address] [place] [address], [id number] , [place] tel: [phone] [facility] No Information 5 Minesh Georges. [address] , [address], [place], [place], [id number], [place]. tel:[phone] Referring Provider: Marilee Vale, [address] [place], [address]. tel:[phone] [facility], [address] [facility], [place], [place], [id number] , [place] tel: [phone] [facility] No Information Fabricio Vanegasiq. [address] [facility], [place], [place], [id number], [place]. tel:[phone] Family History Family Member Type Diagnosis Age At Onset Father Problem (finding) Hypertension Brother Problem (finding) Diabetes mellitus Father Problem (finding) Heart disease Father Problem (finding) Diabetes mellitus Brother Problem (finding) Hypertension Payers Payer name Insurance type Covered constitution party ID Authoriza tisuly(s) HUMANA CI [id number] Social History Type Description Quantity Date Captured Comments Alcohol Use Details Unknown Caffeine Use Details Unknown Tobacco Use Status No Information Smoking Status No Information Sex Male Chief Complaint And Reason For Visit No Information Reason For Referral Reason For Referral No Information Plan Of Treatment Date Type Action Status Appointment Jerzy Leahy BOOKED Future Order: Lab Order proBNP ( [id number]), Ordered on: Ordered Future Order: Radiology Order At erial Lower Extremity ([id number]), Sent on: Sent History Of Present Illness Encounter Date Complaint History Of Prese nt Illness follow up janina legs and ank les swelling dc from [place] for copd Follow Up of cardiology exam janina leg swelling SOB Functional Status Date Functional Assessmen t No Information Instructions Date Instruction Additional Infor mation No Information Assessments Type Assessment Date No Information Patient Care Teams Name Effective Dates (start - stop) Status Members No Information
--- OUTSIDE RECORDS SUMMARY | 2025-02-18 01:17 | XMS_ITS | Clinical Summary ---
Author Organization [facility] Address [address] [place] [address] Care Team Providers Care Ibm Websphere Portal Developer Name Role Phone Felicia Ramos PA-C Primary Care Provider + Source Comments [facility],non-owned Affiliates and Associated Physician Practices is amultiple site organization consisting of ambulatory clinics and hospital sitesin [place] and [place]. This disclosure is being madepursuant to the Care Everywhere program and may not contain all information available regarding this patient. 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
--- OUTSIDE RECORDS SUMMARY | 2025-02-18 01:17 | XMS_ITS | Clinical Summary ---
Author Organization [facility] Address [address] [place] [address] Phone Care Team Providers Care Water Treatment Specialist Name Role Phone Marilee Vale MD Primary Care Provider [phone] Aravind Coelho MD Unavailable Allergies Active Allergy Reactions Criticality Noted Date Comments Dog Fennel Allergy Skin Test Rash,Itching Low 06/28 Cats Penicillins Hives,Rash,Itching High 06/28/2024 Medications fluticasone (FLONASE) 50 MCG/ACT Suspension 1 [place] by Nasal route daily. Use in each [...] mg by mouth daily. Active Glucose Blood (Fetch Technologiesuch Ultra Blue Test) Strip by In Vitro route. Use as directed Active triamcinolone (KENALOG) 0.1 % Cream Apply 2 times daily. Application Site: bottom of right foot twice daily (Description and Location) Active nystatin (MYCOSTATIN) 648631 UNIT/GM Cream Apply 3 times daily. Application Site: affected area (Description and Location) Active Glucagon (Gvoke HypoPen 2-Pack) 1 MG/0.2ML Solution Auto-injector by Subcutaneous route. Active Insulin Pen Needle (TRUEplus Pen Phillips) 31G X 5 MM Misc by Does [...] 0.6 oz pur e alcohol) 2x year [facility] Utilities Answer Date Recorded In the past 12 months has th e mSeller, gas, oil, or water [employer] threatened to shut off services in your [...] any time in the past 12 m [facility], were you homeless or living in a correction (including now)? No 08/28/2024 Sexually Active Control [...] MEDICAID [place] MEDICARE C HUMANA Care Teams Water Treatment Specialist Relationship Specialty Start Date End Date Marilee Vale MD [address] [place] [address] PCP - General Family Medicine 11/06/23 Aravind Coelho MD [address] [address] Consulting Physician Endocrinology 06/28/24
--- OUTSIDE RECORDS SUMMARY | 2025-02-18 01:17 | XMS_ITS ---
Author Organization [facility] Address [address] [place] [address] Phone Care Team Providers Care Surface Water Technician Name Role Phone Marilee Vale MD Primary Care Provider [phone] Aravind Coelho MD Unavailable Juan [facility] Service Episode Status:Identified (Enrolling) Start date:08/28/2024 Related program episode:Juan Chronic Condition Monitoring (Active) Continued Care and Services Coordination
--- OUTSIDE RECORDS SUMMARY | 2025-02-18 01:17 | XMS_ITS | Clinical Summary ---
Author Organization [facility] [place] Address [address] [place] [address] Care Team Providers Care Industrial Safety And Health Technician Name Role Phone Unavailable Primary Care Provider Unavailabl e Medications aspirin (MICHELLE CHEWABLE) 81 mg Tablet, ChewableIndications :Hyperlipidemia, unspecified hyperlipidemia type Take 1 Tablet (81 mg) by mouth daily. 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
--- OUTSIDE RECORDS SUMMARY | 2025-02-18 01:17 | XMS_ITS ---
Author Organization [facility] Address [address] [place] [address] Phone Care Team Providers Care Coil Connector Name Role Phone Marilee Vale MD Primary Care Provider [phone] Aravind Coelho MD Unavailable Juan Chronic Condition Monitoring Status:Enrolled (Active) Start date:08/28/2024 Enrollment date:08/28/2024 Related social drivers of health:Intimate Partner Violence, Social Connections, Alcohol Use, Financial Resource Strain, Depression, Stress, Physical Activity, Food Insecurity, Transportation Needs, Housing Stability, Utilities [facility] (Enrolling) Continued Care and Services Coordination
[2025-03-27 10:50] VITALS: BMI 53.1
--- NOTE | 2025-03-27 11:04 | SUR.PREOP ---
[facility] has started construction of its new state of the art ER which will open Spring 2026. With this, we anticipate parking may be a challenge for some our surgical patients and families. Parking spaces are limited but are available for all Surgical, obstetrics, and ER patients sharing this lot. If you arrive and find you are having a hard time finding a parking space, please note that we understand the challenges, please drive around the hospital and park near Hospital Entrance 1. When you enter this entrance, you can ask a volunteer to direct or take you back to the surgical waiting area to check in. We appreciate everyone?s understanding of these expected challenges while we build for your future. Report to the Outpatient Waiting Room, entrance under the green pavilion located off [address], at time 12:00 on date 03/31/2025. Planned Procedure Time: 2:00p.m.? Time changes happen often and if your time is changed the preop area will call you the afternoon before. - You and your visitor will be asked to self-screen and do not enter if you have any COVID symptoms. Please call surgeon if you need to reschedule. - A mask is optional within the hospital at this time. Patients may have clear liquids (water, carbonated beverages, clear teas, apple juice) until 3 hours prior to surgery with a maximum of 20 ounces. - No food from midnight until time of surgery and no smoking, or chewing tobacco (or any form of nicotine). No chewing gum, candy or mints. Take only the following medications with a SIP of water on the morning of surgery: inhalers, bupropion, buspirone, carvedilol, gabapentin, hydroxyzine, lamotrigine DO NOT STOP ANY OF YOUR OTHER PRESCRIPTION MEDICATIONS PRIOR TO SURGERY EXCEPT THE FOLLOWING Hold all vitamins and supplements for 3 days per anesthesiologist. Medications to discontinue per physician Aspirin (Stop taking 03/24/2025) Vitamins and Supplements (03/28/2025) Please no make-up, nail salvadorean, hairspray, perfume, deodorant, or body powder the day of surgery.? No jewelry (including any body piercings) or valuables the day of surgery, leave them at home.? Please take a shower or bath the night before, or the morning of, surgery with an antibacterial soap.? Wear comfortable, loose fitting clothing.? Children are encouraged to wear pajamas. - Jewelry must be removed prior to entering the operating room.? Rings and piercings that are not removed may be cut off. - The hospital will not accept responsibility for valuables.? - Please leave all valuables, including medications, at home the day of surgery. If you are going home after surgery, a licensed tank driver must drive you home.? - NO public transportation without another adult if you receive anesthesia. - We recommend that an adult stay with you for 24 hours following discharge. - We also recommend that you do not drive, make important decision, drink alcoholic beverages, or take any drugs that were not prescribed by your health care provider for at least 24 hours after your discharge time. For Pediatric surgeries, we recommend two adults accompany the child home. Follow any additional instructions given to you from your surgeon. Telephone instructions given to Jerzy Leahy and asked if any additional questions and then verbalized understanding. Patient advised to call surgeon office or pre surgery nurse liaison [phone] if any additional questions.
--- NOTE | ~2025-03-31 | XR_ITS ---
EXAM/PROCEDURE: XR fluoroscopy no charge HISTORY: THERMAL RADIOFREQUENCY ABLATION LUMBAR COMPARISON: None available. TECHNIQUE: Fluoroscopic assisted procedure. Fluoroscopy time: 1 minute 38.3 seconds. DAP: 5.3849 Hale per square centimeter IMPRESSION: Images of the spine submitted. No radiologist present. See procedure/operative notes for complete details. Reviewed, dictated and finalized at location A. E PRN
--- OUTSIDE RECORDS SUMMARY | 2025-03-31 00:52 | XMS_ITS | Clinical Summary ---
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 Machine Name Role Phone AUNDREA OLGUIN, LI Unavailable [phone] YASH SALEH Primary Care Provider [phone] NICK NELSON Unavailable [phone] ANJELICA CALDERON MD Unavailable [phone] Reason for Visit and Chief Complaint The Chief Complaint is: Follow up after medication change Problems Includes: Problems addressed during this encounter and other active Problems Current Visit Onset Date Resolved Date Provider Conditio n Status Obesity Morbid Unknown AKIN ELISEL P PRINT PRODUCER-FPA, [employer]ER [employer]-BC Active Last Documented On 2 10:28AM ; [facility] Past Visits Onset Date Resolved Date Provider Condition Status Anxiety Disorder Nos Unknown AKIN CIFUENTES PRINT PRODUCER-FPA, [employer]ER [employer]MENT-BC Active Last Documented On 2 10:55AM ; [facility] Bipolar I Disorder Unknown AKINBHARGAV CIFUENTES AP RN-FPA, [employer]MENT-BC Active Last Documented On 2 10:55AM ; [facility] Congestive Heart Failure Unknown AKIN Londono ULP PRINT PRODUCER-FPA, CLE[employer]ER [employer] EQUIPMENT-BC Active Last Documented On 2 10:27AM ; [facility] Fatty Liver Unknown AKIN CIFUENTES PRINT PRODUCER-FPA, CLE[employer]ER [employer]MENT-BC Active Last Documented On 2 10:54AM ; [facility] Chronic Obstructive Pulmonar y Disease Unknown AKIN CIFUENTES PRINT PRODUCER-FPA, CLE[employer]ER [employer]MENT-BC Active Last Documented On 2 10:28AM ; [facility] Diabetes Mellitus Unknown AKIN CIFUENTES APR N-FPA, [employer]MENT-BC Active Last Documented On 2 10:27AM ; [facility] Gout Unknown AKIN CIFUENTES PRINT PRODUCER-FPA, CLE[employer]MENT-BC Active Last Documented On 2 10:56AM ; [facility] Essential Hypertension Unknown AKIN RAZA P PRINT PRODUCER-FPA, [employer]MENT-BC Active Last Documented On 2 10:55AM ; [facility] Plan of Treatment Patient was seen today for 4 chronic unstable conditions of the lumbosacral spine, and central nervous system.Without treatment patient is at risk for significant functional limitations resulting in diminished quality of life and impaired age appropriate activities of daily living. Multiple documents have been reviewed in combination with today's evaluation including imaging studies, outside provider notes, laboratory data, patient self-report questionnaires, and [place] prescription monitoring database entries. Significant social barriers exist to compliance resulting in limited prognosis. Decision to proceed with interventional therapies was made at the time of today's visit. - Last Documented On 08/29/2023 2:52PM ; [facility] Pending Tests Order Diagnosis Results Due Ordering P rovider Lab Panel 6 w/ med match [id number] 07/14/23 AKIN ELISELP PRINT PRODUCER- FPA, CLE[employer]ER [employer]IPMENT-BC Last Documented On 4 1:18PM ; [facility] Lab Buprenorphine with confirmation-[id number] 07/14/23 AKIN ELISELP PRINT PRODUCER-FPA, CLE[employer]ER [employer] EQUIPMENT-BC Last Documented On 4 1:18PM ; [facility] Therapy - Physical Therapy Physical Therapy Other spondylosis, lumbar region 08/29/23 AKIN ELISELP PRINT PRODUCER-FPA, CLE[employer]ER [employer]IPMENT-BC Last Documented On 4 3:32PM ; [facility] Education and Decision Aids were provided during visit for: Pill Count: nine Belbuca Last Documented On 4 2:38PM ; [facility] Assessments Includes: Assessments from this encounter Findings - [E66.8 - Other obesity] Morbid obesity - Last Documented On 08/29/2023 2:52PM ; [facility] - [M51.26 - Other intervertebral disc displacement, lumbar region] Bulging lumbar disc - Last Documented On 08/29/2023 2:52PM ; [facility] - [M47.896 - Other spondylosis, lumbar region] Lumbar spondylosis - Last Documented On 08/29/2023 2:52PM ; [facility] - [M54.6 - Pain in thoracic spine] Pain in thoracic spine - Last Documented On 08/29/2023 2:52PM ; [facility] - [M54.50 - Low back pain, unspecified] Low back pain - Last Documented On 08/29/2023 2:52PM ; [facility] - [M48.062 - Spinal stenosis, lumbar region with neurogenic claudication] Lumbar stenosis with neurogenic claudication - Last Documented On 08/29/2023 2:52PM ; [facility] - [M54.2 - Cervicalgia] Cervicalgia - Last Documented On 08/29/2023 2:52PM ; [facility] - [M54.16 - Radiculopathy, lumbar region] Lumbar radiculopathy - Last Documented On 08/29/2023 2:52PM ; [facility] - [G89.4 - Chronic pain syndrome] Chronic pain syndrome - Last Documented On 08/29/2023 2:52PM ; [facility] Instructions Includes: Instructions from this encounter Education and Decision Aids were provided during visit for: Pill Count: nine Belbuca Last Documented On 2:38PM ; [facility] Medical Equipment - Implanted Devices Includes: Current Devices No Medical Equipment Recorded Medications Includes: Medications discussed during this encounter and other current Medications New / Renewed during this visit LENNIE ADAMSP-BC on 08/29/2023 Belbuca 150 MCG Buccal Film Provider: RENITA BUSHBC 30 day supply: 60 film, 0 refills Diagnosis: Radiculopathy, lumbar region dissolve 1 film to inside of cheek every 12 hours, be sure to dissolve fully then rinse mouth after Pharmacy: [facility]) - [address] , [facility], [id number] - Last Documented On 06/18/202 4 10:16AM By AKIN CARTY ; [facility] DULoxetine HCl 60 MG Oral Capsule Delayed Release Particles Provider: MACHELLE BUSH 30 day supply: 30 capsule, 2 refills Diagnosis: Other spondylosis, lumbar region TAKE 1 CAPSULE BY MOUTH ELIZABETH Y AT BEDTIME Pharmacy: [facility]) [facility] [address] [facility], [id number] - Last Documented On 4 2:56PM By AKIN CARTY ; [facility] Celecoxib 200 MG Oral Capsule Provider: MACHELLE BUSH 30 day supply: 30 capsule, 2 refills Diagnosis: Other spondylosis, lumbar region TAKE 1 CAPSULE BY MOUTH ELIZABETH Y WITH A MEAL Pharmacy: [facility] [place]) [facility] [address] [phone] - Last Documented On 4 2:56PM By AKIN CARTY ; [facility] Methocarbamol 750 MG Oral Tablet Provider: MACHELLE ADAMS 30 day supply: 90 tablet, 2 refills Diagnosis: Other spondylosis, lumbar region One tablet three times a day Pharmacy: [facility]) - [address], [phone] - Last Documented On 4 2:56PM By AKIN CARTY ; [facility] Current Medications (continue as prescribed) Belbuca 150 MCG Buccal Film 10/03/2023 Provider: MACHELLE BUSH Diagnosis: Radiculopathy, l umbar region dissolve 1 film to inside of cheek every 12 hours, be sure to dissolve fully then rinse mouth after Last Documented On 4 10:22AM By AKIN CARTY ; [facility] Narcan 4 MG/0.1ML Nasal Liquid 04/11/2023 Provider: LENNIE ADAMSP-JÚNIOR Diagnosis: 1 spray intranasally for suspected overdose Last Documented On 3 1:25PM By AKIN CARTY ; [facility] Ziprasidone HCl 40 MG Oral Capsule 11/01/2022 Provid er: Diagnosis: Last Documented On 3 3:28PM By Rebecca ALFREDO ; [facility] lamoTRIgine 100 MG Oral Tablet 08/18/2022 Provider: Diagnosis: Last Documented On 3 12:25PM By AKIN COXJÚNIOR ; [facility] hydrOXYzine Pamoate 25 MG Oral Capsule 08/18/2022 Pr ovider: Diagnosis: Last Documented On 3 12:25PM By AKIN COXJÚNIOR ; [facility] Losartan Potassium 50 MG Oral Tablet 07/14/2022 Prov ider: Diagnosis: Last Documented On 3 12:25PM By AKIN HOGUEJÚNIOR ; [facility] busPIRone HCl 30 MG Oral Tablet 06/07/2022 Provider: NICK NELSON Diagnosis: Last Documented On 3 12:25PM By [facility] ; [facility] Adult Aspirin Regimen 81 MG Oral Tablet Delayed Releas e 10/21/2021 Provider: Diagnosis: Last Documented On 2 10:31AM By AKIN CARTY ; [facility] metFORMIN HCl 500 MG Oral Tablet 10/06/2021 Provider : Diagnosis: Last Documented On 2 10:31AM By AKIN CARTY ; [facility] Gabapentin 300 MG Oral Capsule 10/06/2021 Provider: Diagnosis: Last Documented On 2 10:31AM By AKIN CARTY ; [facility] Anoro Ellipta 62.5-25 MCG/IN H Inhalation Aerosol Powder Breath Activated 10/06/2021 Provider: Diagnosis: One puff daily. Last Documented On 2 10:31AM By AKIN COXJÚNIOR ; [facility] Carvedilol 6.25 MG Oral Tablet 09/30/2021 Provider: Diagnosis: Last Documented On 2 10:31AM By AKIN CARTY ; [facility] Furosemide 40 MG Oral Tablet 09/28/2021 Provider: Diagnosis: Last Documented On 2 10:31AM By AKIN CARTY ; [facility] buPROPion HCl ER (XL) 300 MG Oral Tablet Extended Release 24 Hour 09/18/2021 Provider: NICK NELSON Diagnosis: Last Documented On 2 10:31AM By AKIN CARTY ; [facility] Ketoconazole 2% External Cream 09/16/2021 Provider: ADDISON DOBSON MD Diagnosis: Apply to affeted area twice a week. Last Documented On 2 10:31AM By AKIN CARTY ; [facility] Albuterol Sulfate (2.5 MG/3M L) 0.083% Inhalation Nebulization solution 09/09/2021 Provider: Diagnosis: Last Documented On 2 10:31AM By AKIN CARTY ; [facility] Potassium Chloride ER 10 MEQ Oral Tablet Extended Rele ase 09/01/2021 Provider: Diagnosis: Last Documented On 2 10:31AM By AKIN CARTY ; [facility] Past Medications on file Losartan Potassium 25 MG Oral Tablet 03/17/2022 - 03/19 Provider: Diagnosis: 2 tablets daily Last Documented On 2 8:33AM By AKIN CARTY ; [facility] Medications Administered Includes: Administered Medications from this encounter No Administered Medications Recorded Vital Signs Includes: Vital Signs from this encounter Vital Name 08/29/2023 02:38P Temp-Temporal 98 Height (in) 72 Weight (lb) 366 Body Mass Index 49.6 Body Surface Area 2.8 Pain Level 5 Last Documented: On 08/29/2023 2:39PM ; [facility] Results Includes: Results discussed during this encounter No Results Recorded For Specified Dates History of Present Illness Includes: History of Present Illness from this encounter HPI PHQ-9 Score: 10 Date:06/30/2023 OSWESTRY Score: 70% Date:06/30/2023SOAPP-R Score: 25 High Date:06/30/2023ation: LumbarQuality: tightness, Radiation: BLT shoulder. Severity: Timing: intermittent. Associated Sx: Weakness. Aggravating Factors:StandingAlleviating Factors:Past Tx: Physical Therapy, TFESI 11/03/21 L4- 5 BLT L4-5 TFESI 12/16/2021, L3-5 thermal RFA 05/03 and 05/09, BLT L4-5 TFESI 08/11/2022; PT low and upper back 07/17/23-09/01/23 RAZA SHEETS is a 48 year old male. - Allergy list reviewed - Problem list reviewed - Medication reconciliation performed - Medication list reviewed - Primary Care Provider: - Prescription Drug Monitoring Program website checked. 06/26/2023 - How much of the medication are you taking a day? Every 12 hours - Last dose of medication? This morning - Pain is continuous - Primary pain location Lower back constantly radiates up spine to neck &shoulders - Primary pain duration Lowerback pain is constant - Secondary pain duration Mainly when walking or standing - Secondary pain location Neck spine and shoulders - Pain is throbbing - Pain is sharp - Pain is pressure like - Pain is described as numbness - Pain is described as tingling - Pain is tight - Pain aggravated getting in/out of car - Pain aggravated going down stairs - Pain aggravated going up stairs - Pain aggravated lying down - Pain aggravated sitting - Pain aggravated standing - Pain aggravated when out of chair - Pain aggravated by walking - Pain aggrated by coughing/sneezing - Pain aggravated lifting - Pain aggravated by sex - Pain aggravated bending - Pain radiating to both shoulders - Neck pain radiating to both sides - Vertigo - Last drug screen appropriate 07/01/23 Discussion: Telehealth visit; FU chronic upper/lower back pain. He has been in PT for about 6 weeks now and feels like it has been helping. He states pain is more manageable now and he was able to bend over and touch the floor the other day. It sounds like he is making progress so he would benefit and is agreeable to continuing in therapy for now. Continue current medications. FU 3 months in office. PRIOR VISIT: FU for chronic low back pain. He still has not done PT. It has been hard to find somewhere that will take his insurance. Driving to [facility] is not very convenient as it is an hour for him to get here. His Butrans patch had to be changed to Belbuca because it was causing blistering/rash to the skin where he placed the patch. He has done well with the Belbuca. No medication side effects. It has been helping with pain. [place] monitoring and UDS have been consistent. I will again order PT. PRIOR VISIT: Follow-up after medication changes were made for his chronic upper and lower back pain. We started the patient on a Butrans patch. He denies any medication side effects. The patient states he was significantly surprised by how well this helps with his pain. He was able to do light activity with minimal pain. He states he tried work in the kitchen cooking and doing dishes for an hour or two for his daughter's birthday green party. He states he had difficulty finishing the dinner and paid for this later. His pain was increased quite a bit during this time. He states he doesn't feel like he could do moderate activity any more because of the pain he experienced. He still has not started PT. Apparently the hospital that we sent the therapy order to does not have aquatic therapy. He states [facility] is opening up a new center so I will send a new referral to that location. PRIOR VISIT: Here for FU however he has not done any PT yet. STarting February 08. When finished with PT we will consider MRI thoracic spine and MBB with progression to thermal RFA if appropriate response. He continues to be in significant pain 5- 6/10 at rest and 7-9/10 with any activity. He wakes up in the middle of the night with pain. Previously Xtampza provided only minimal relief and he would take an extra pill on occasion due to pain. We stopped prescribing due to violation of his pain contract. Since he is requiring pain relief 24 hours/day and I would like to stay with a schedule III medication and avoid tablets that he can take extra of we discussed Butrans patch as an option for his pain control. This way I have more control over dosing and take this out of patient's hands. We discussed risks/benefits. He has Naloxone nasal spray at home. Tramadol, Hydrocodone, Oxycodone/Acetaminophen, Xtampza ER minimally helpful PRIOR VISIT: Patient here for FU after L4-5 TFESI. He states his radicular pain down the leg has resolved and he continues to get 35-45% relief of the low back pain. He would like to look at some pain he is having in the middle part of his back. He states this pain is a severe squeezing type of pain that comes and goes. Nothing specific really seems to trigger this pain but when it hits it is severe. Nothing seems to help it go away. When he has the pain it can last for an hour or two. It is non radiating in nature and more severe than his low back pain. Patient recently violated his pain contract for the second or third time. He was short on his pain medication. He states he was taking an extra one here and there because pain was so severe. We had told him on a few other occasions he has to call the office prior to taking extra pain medication. He claims he does not remember that he had to call before taking extra pain medicine he thought he only had to tell us when he called in for refill or at his follow-up visit. He also states he understands why we are weaning him off and is not upset about it. We discussed adding Duloxetine for his back pain as he is very deconditioned with arthritis so a lot of his pain may be muscular/arthritic in nature. We will also get him back in to therapy. He does not think he could do land based therapies and prefers to do aqua therapy. PRIOR VISIT: Patient here to for FU visit and exam after undergoing L3, L4, L5 thermal RFA. He feels like he had pain relief and was able to cook with less pain. He states this only lasted about 2 weeks and then pain started to return. This is inconsistent with the relief he got from the blocks. His pain is in the low back, upper R lumbar area, between shoulder blades, and neck muscle spasms at times. He is having pain down the left leg again to knee in L4 pattern. previous epidural injection at L4-5 helped with this radicular pain. This pain returned about 3 weeks ago. We discussed repeating epidural injection at this time. We also discussed restarting Celebrex. I am not sure why this medicine was stopped. We have not filled it since last October and pt does not know either. He has no h/o heart disease, GI bleed, ulcer, or renal insufficiency. He does have CHF with preserved EF with good blood pressure control. 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 His next appt is not until December so I asked him to call the office. FIRST VISIT 10/21/21: Patient presents today for chronic low back pain that has been ongoing for about two years. He states prior to the last two years it was intermittent. Now symptoms are pretty constant and described as quite severe. He reports being very limited by his pain. His pain is axial in nature. He only has upper thigh pain when he stands or walks. He cannot stand or walk longer than 10 minutes at a time because his legs feel very weak, fatigued, and feel like they're going to give out on him. Trying to put on his socks and shoes in the morning, walking, and general movement makes the pain worse. Other than leaning backwards and slightly extending the back nothing else gives him any relief of his pain. He has tried Tylenol and Tramadol. Neither of these were helpful. His primary gave him some Hydrocodone recently. He states it did not seem to help at all. He even took four at one time which was a 20 mg dose and had no relief of his pain. He is on gabapentin three times a day for neuropathy symptoms in the legs due to his diabetes. He is on a muscle relaxer, Methocarbamol regularly. He has had physical therapy within the last six months. He did aquatic therapy at [facility] for 8 visits and 4 weeks, June-July 2021. He was discharged, not making progress. He states this did not help with his pain at all. Unfortunately, the patient is morbidly obese and severely deconditioned. We discussed his obesity in detail today. If he were able to lose weight many of his chronic problems would improve. However, he has other health conditions such as COPD and heart failure for which he is on chronic oxygen treatment and a noninvasive ventilator at night so this complicates his weight loss journey. He states he has talked to his primary about this and they plan to do a bariatric surgery consult in the future. We discussed a transforaminal epidural steroid injection today. He would like to see if this helps at all with his pain. He is tearful and quite upset that he has been in so much pain and has not had any relief to this point. He understands the steroid injection can raise his blood sugars. He will have to monitor them very closely for a few days after the injection. His last renal labs on 07/05/21 were BUN 16, Creatinine 0.80, eGFR >60. Last A1c in June was 6.8. I talked with his PCP also and she does not see any contraindication to NSAIDs. We discussed a daily anti-inflammatory medication and consideration of Cymbalta daily for his chronic pain. I will give him a few Percocet in the meantime since he is extremely uncomfortable. He understands that we do not wish to continue narcotic pain medications and our goal is to not have him on a narcotic medication the future. Imaging: All relevant imaging available was personally reviewed with the patient today with the following tests and results noted: X-ray T Spine 11/30/22 moderate DDD endplate sclerosis and spurring with prominent multilevel bridging anterior and lateral osteophytes MRI Lumbar Spine 07/29/2021 Impression: Mild to moderate lumbar spondylosis, all levels. Mild disc bulges at L4-5 and L5-S1 with mild to moderate neural foraminal narrowing and mild central canal stenosis. X-ray Lumbar Spine 03/02/2021 Impression: No fracture or listhesis. Mild disc space narrowing at L5-S1 Social History Description Last Updated Former smoker 10/21/2021 Last Documented On 4 2:37PM ; [facility] Difficulty walking 10/21/2021 Last Documented On 4 2:37PM ; [facility] No consumption of alcohol 10/21/2021 Last Documented On 4 2:37PM ; [facility] Not using drugs 10/21/2021 Last Documented On 4 2:37PM ; [facility] Smoking Status Unknown Procedures and Surgical History Includes: Procedures from this encounter Procedures Code Diagnosis Performing Provider Service L ocation Service Date walker Last Documented On 4 2:37PM ; [facility] use of tobacco assessment performed 1000F Last Documented On 4 2:37PM ; [facility] patient screened for future fall risk: documentation of any fall with injury in past year 1100F Last Documented On 4 2:37PM ; [facility] review of medications documented 1160F Last Documented On 4 2:37PM ; [facility] screening for adult depression: impressi on and score 15 Last Documented On 4 2:37PM ; [facility] standardized depression screening: posit gael for symptoms Last Documented On 4 2:37PM ; [facility] Clinical summary provided to patient Last Documented On 4 2:37PM ; [facility] SOAPP-R: total score 25 Last Documented On 4 2:37PM ; [facility] Surgical History Last Updated No Pacemaker 10/21/2021 Last Documented On 4 2:37PM ; [facility] Medical History Includes: Medical History addressed during this encounter Description Last Updated Has had a fall in the last 12 months. Last Documented On 4 2:37PM ; [facility] Has a fear of falling. 07/20/2022 Last Documented On 4 2:37PM ; [facility] Uses a cane for support Has motorized wh eelchair 11/30/2021 Last Documented On 4 2:37PM ; [facility] Currently wearing eyeglasses 10/21/2021 Last Documented On 4 2:37PM ; [facility] No Pain Pump 10/21/2021 Last Documented On 4 2:37PM ; [facility] No Spinal cord stimulator 10/21/2021 Last Documented On 4 2:37PM ; [facility] Family History Includes: Family History addressed during this encounter Description Last Updated Other family history , please specify: 0 10/21/2021 Last Documented On 4 2:37PM ; [facility] Review of Systems Includes: Review of Systems from this encounter Systemic: No systemic symptoms other then noted. Fatigue. No recent weight loss. Head: No head symptoms other then noted. Headache. Neck: Neck pain. Otolaryngeal: No otolaryngeal symptoms other than noted. Cardiovascular: No cardiovascular symptoms other than noted. Cold hands or feet and varicose veins. Pulmonary: No pulmonary symptoms other than noted. Shortness of breath, chronic cough, and wheezing. Gastrointestinal: No difficulty chewing and no dysphagia. Genitourinary: No genitourinary symptoms other than noted. Urinary loss of control. Endocrine: No endocrine symptoms other than noted. Polydipsia, muscle weakness, and Weakness. Hematologic: No easy bleeding and no tendency for easy bruising. Musculoskeletal: No musculoskeletal symptoms other than noted. Back pain, ankle joint swelling, localized soft tissue swelling in the foot, muscle cramps, pain localized to one or more joints, and joint stiffness localized to one or more joints. Neurological: No neurological symptoms other than noted. Dizziness. No fainting passing out with needles or medical procedures. Numbness. Psychological: Depression and insomnia. No sleep apnea. Skin: No skin symptoms other than noted. Dry skin. Mental Status Includes: Mental Status from this encounter No Mental Status Recorded Functional Status Includes: Functional Status from this encounter No Functional Status Recorded Physical Exam Includes: Physical Exam from this encounter Allergies Includes: Active Allergies Substance Type Reaction Onset Date Resolved Date Statu s Penicillins Allergy 10/21/2021 Active Last Documented On 4 2:38PM ; [facility] Encounters Encounter Provider Location Date Check-In Time Check-Out Time Diagnosis TELEHEALTH AKIN CIFUENTES APRN-DANNY, [place]-[facility] 08/29/19 24 2:27PM 3:45PM Lumbar Spondylosis,Chron ic Pain Syndrome,Cervical tavo,Obesity Morbid,Lumbar Radiculopathy,Bul ging Intervertebral Disc Lumbar,Spinal Stenosis Lumbar with Neurogenic Claudication,Dors opathy Dorsalgia Pain in Thoracic Spine,Dorsopathy Low Back Pain Insurance Includes: Active Insurance Policies Plan Name Member ID Group # Subscriber Relationship Effect gael Dates 1 - [facility] [id number] RAZA SHEETS Self Clinical Notes Includes: Clinical Notes from this encounter * Progress note Date Encounter Last Documented by 08/29/2023 TELEHEALTH Last documented on 08/29/2023; 2:52 PM, AKIN CIFUENTES APRN-FPA, [employer]-J[facility]; [facility] Active Problems & Conditions - Anxiety Disorder Nos - Bipolar I Disorder - Chronic Obstructive Pulmonary Disease - Congestive Heart Failure - Diabetes Mellitus - Essential Hypertension - Fatty Liver - Gout - Obesity Morbid Chief Complaint The Chief Complaint is: Follow up after medication change. History of Present Illness PHQ-9 Score: 10 Date:06/30/2023 OSWESTRY Score: 70% Date:06/30/2023 SOAPP-R Score: 25 High Date:06/30/2023 cation: Lumbar Quality: tightness, Radiation: BLT shoulder. Severity: Timing: intermittent. Associated Sx: Weakness. Aggravating Factors:Standing Alleviating Factors: Past Tx: Physical Therapy, TFESI 11/03/21 L4-5 BLT L4-5 TFESI 12/16/2021, L3-5 thermal RFA 05/03 and 05/09, BLT L4-5 TFESI 08/11/2022; PT low and upper back 07/17/23- 09/01/23 RAZA SHEETS is a 48 year old male. - Allergy list reviewed - Problem list reviewed - Medication reconciliation performed - Medication list reviewed - Primary Care Provider: - Prescription Drug Monitoring Program website checked. 06/26/2023 - How much of the medication are you taking a day? Every 12 hours - Last dose of medication? This morning - Pain is continuous - Primary pain location Lower back constantly radiates up spine to neck &shoulders - Primary pain duration Lowerback pain is constant - Secondary pain duration Mainly when walking or standing - Secondary pain location Neck spine and shoulders - Pain is throbbing - Pain is sharp - Pain is pressure like - Pain is described as numbness - Pain is described as tingling - Pain is tight - Pain aggravated getting in/out of car - Pain aggravated going down stairs - Pain aggravated going up stairs - Pain aggravated lying down - Pain aggravated sitting - Pain aggravated standing - Pain aggravated when out of chair - Pain aggravated by walking - Pain aggrated by coughing/sneezing - Pain aggravated lifting - Pain aggravated by sex - Pain aggravated bending - Pain radiating to both shoulders - Neck pain radiating to both sides - Vertigo - Last drug screen appropriate 07/01/23 Discussion: Telehealth visit; FU chronic upper/lower back pain. He has been in PT for about 6 weeks now and feels like it has been helping. He states pain is more manageable now and he was able to bend over and touch the floor the other day. It sounds like he is making progress so he would benefit and is agreeable to continuing in therapy for now. Continue current medications. FU 3 months in office. PRIOR VISIT: FU for chronic low back pain. He still has not done PT. It has been hard to find somewhere that will take his insurance. Driving to [facility] is not very convenient as it is an hour for him to get here. His Butrans patch had to be changed to Belbuca because it was causing blistering/rash to the skin where he placed the patch. He has done well with the Belbuca. No medication side effects. It has been helping with pain. [place] Rx monitoring and UDS have been consistent. I will again order PT. PRIOR VISIT: Follow-up after medication changes were made for his chronic upper and lower back pain. We started the patient on a Butrans patch. He denies any medication side effects. The patient states he was significantly surprised by how well this helps with his pain. He was able to do light activity with minimal pain. He states he tried work in the kitchen cooking and doing dishes for an hour or two for his daughter's birthday green party. He states he had difficulty finishing the dinner and paid for this later. His pain was increased quite a bit during this time. He states he doesn't feel like he could do moderate activity any more because of the pain he experienced. He still has not started PT. Apparently the hospital that we sent the therapy order to does not have aquatic therapy. He states [facility] is opening up a new center so I will send a new referral to that location. PRIOR VISIT: Here for FU however he has not done any PT yet. STarting February 08. When finished with PT we will consider MRI thoracic spine and MBB with progression to thermal RFA if appropriate response. He continues to be in significant pain 5- 6/10 at rest and 7-9/10 with any activity. He wakes up in the middle of the night with pain. Previously Xtampza provided only minimal relief and he would take an extra pill on occasion due to pain. We stopped prescribing due to violation of his pain contract. Since he is requiring pain relief 24 hours/day and I would like to stay with a schedule III medication and avoid tablets that he can take extra of we discussed Butrans patch as an option for his pain control. This way I have more control over dosing and take this out of patient's hands. We discussed risks/benefits. He has Naloxone nasal spray at home. Tramadol, Hydrocodone, Oxycodone/Acetaminophen, Xtampza ER minimally helpful PRIOR VISIT: Patient here for FU after L4-5 TFESI. He states his radicular pain down the leg has resolved and he continues to get 35-45% relief of the low back pain. He would like to look at some pain he is having in the middle part of his back. He states this pain is a severe squeezing type of pain that comes and goes. Nothing specific really seems to trigger this pain but when it hits it is severe. Nothing seems to help it go away. When he has the pain it can last for an hour or two. It is non radiating in nature and more severe than his low back pain. Patient recently violated his pain contract for the second or third time. He was short on his pain medication. He states he was taking an extra one here and there because pain was so severe. We had told him on a few other occasions he has to call the office prior to taking extra pain medication. He claims he does not remember that he had to call before taking extra pain medicine he thought he only had to tell us when he called in for refill or at his follow-up visit. He also states he understands why we are weaning him off and is not upset about it. We discussed adding Duloxetine for his back pain as he is very deconditioned with arthritis so a lot of his pain may be muscular/arthritic in nature. We will also get him back in to therapy. He does not think he could do land based therapies and prefers to do aqua therapy. PRIOR VISIT: Patient here to for FU visit and exam after undergoing L3, L4, L5 thermal RFA. He feels like he had pain relief and was able to cook with less pain. He states this only lasted about 2 weeks and then pain started to return. This is inconsistent with the relief he got from the blocks. His pain is in the low back, upper R lumbar area, between shoulder blades, and neck muscle spasms at times. He is having pain down the left leg again to knee in L4 pattern. previous epidural injection at L4-5 helped with this radicular pain. This pain returned about 3 weeks ago. We discussed repeating epidural injection at this time. We also discussed restarting Celebrex. I am not sure why this medicine was stopped. We have not filled it since last October and pt does not know either. He has no h/o heart disease, GI bleed, ulcer, or renal insufficiency. He does have CHF with preserved EF with good blood pressure control. 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 His next appt is not until December so I asked him to call the office. FIRST VISIT 10/21/21: Patient presents today for chronic low back pain that has been ongoing for about two years. He states prior to the last two years it was intermittent. Now symptoms are pretty constant and described as quite severe. He reports being very limited by his pain. His pain is axial in nature. He only has upper thigh pain when he stands or walks. He cannot stand or walk longer than 10 minutes at a time because his legs feel very weak, fatigued, and feel like they're going to give out on him. Trying to put on his socks and shoes in the morning, walking, and general movement makes the pain worse. Other than leaning backwards and slightly extending the back nothing else gives him any relief of his pain. He has tried Tylenol and Tramadol. Neither of these were helpful. His primary gave him some Hydrocodone recently. He states it did not seem to help at all. He even took four at one time which was a 20 mg dose and had no relief of his pain. He is on gabapentin three times a day for neuropathy symptoms in the legs due to his diabetes. He is on a muscle relaxer, Methocarbamol regularly. He has had physical therapy within the last six months. He did aquatic therapy at [facility] for 8 visits and 4 weeks, June-July 2021. He was discharged, not making progress. He states this did not help with his pain at all. Unfortunately, the patient is morbidly obese and severely deconditioned. We discussed his obesity in detail today. If he were able to lose weight many of his chronic problems would improve. However, he has other health conditions such as COPD and heart failure for which he is on chronic oxygen treatment and a noninvasive ventilator at night so this complicates his weight loss journey. He states he has talked to his primary about this and they plan to do a bariatric surgery consult in the future. We discussed a transforaminal epidural steroid injection today. He would like to see if this helps at all with his pain. He is tearful and quite upset that he has been in so much pain and has not had any relief to this point. He understands the steroid injection can raise his blood sugars. He will have to monitor them very closely for a few days after the injection. His last renal labs on 07/05/21 were BUN 16, Creatinine 0.80, eGFR >60. Last A1c in June was 6.8. I talked with his PCP also and she does not see any contraindication to NSAIDs. We discussed a daily anti-inflammatory medication and consideration of Cymbalta daily for his chronic pain. I will give him a few Percocet in the meantime since he is extremely uncomfortable. He understands that we do not wish to continue narcotic pain medications and our goal is to not have him on a narcotic medication the future. Imaging: All relevant imaging available was personally reviewed with the patient today with the following tests and results noted: X-ray T Spine 11/30/22 moderate DDD endplate sclerosis and spurring with prominent multilevel bridging anterior and lateral osteophytes MRI Lumbar Spine 07/29/2021 Impression: Mild to moderate lumbar spondylosis, all levels. Mild disc bulges at L4-5 and L5-S1 with mild to moderate neural foraminal narrowing and mild central canal stenosis. X-ray Lumbar Spine 03/02/2021 Impression: No fracture or listhesis. Mild disc space narrowing at L5-S1 Current Medication - Adult Aspirin Regimen 81 [...] 12 months. Has a fear of falling. Previous Therapy - Walker Social History Difficulty walking. Tobacco use: Former smoker. Alcohol: No consumption of alcohol. Drug Use: Not using drugs. Allergies - Penicillins Family History Other family history , please specify: Review Of Systems Systemic: No systemic symptoms other then noted. Fatigue. No recent weight loss. Head: No head symptoms other then noted. Headache. Neck: Neck pain. Otolaryngeal: No otolaryngeal symptoms other than noted. Cardiovascular: No cardiovascular symptoms other than noted. Cold hands or feet and varicose veins. Pulmonary: No pulmonary symptoms other than noted. Shortness of breath, chronic cough, and wheezing. Gastrointestinal: No difficulty chewing and no dysphagia. Genitourinary: No genitourinary symptoms other than noted. Urinary loss of control. Endocrine: No endocrine symptoms other than noted. Polydipsia, muscle weakness, and Weakness. Hematologic: No easy bleeding and no tendency for easy bruising. Musculoskeletal: No musculoskeletal symptoms other than noted. Back pain, ankle joint swelling, localized soft tissue swelling in the foot, muscle cramps, pain localized to one or more joints, and joint stiffness localized to one or more joints. Neurological: No neurological symptoms other than noted. Dizziness. No fainting passing out with needles or medical procedures. Numbness. Psychological: Depression and insomnia. No sleep apnea. Skin: No skin symptoms other than noted. Dry skin. Physical Findings - Vitals taken 08/29/2023 02:38 pm Temp-Temporal 98 F Height 72 in Weight 366 lbs Body Mass Index 49.6 kg/m2 Body Surface Area 2.8 m2 Pain Level 5 Pain Level Note Lumbar left sided Vital Signs: - Pain level by numeric rating scale 8 with any activity. Musculoskeletal System: General/bilateral: Musculoskeletal Scales: Value Lumbar oswestry score 70 Psychiatric: Psychiatric: Value PHQ9 score: 10 PRIOR EXAM Constitutional: Well developed. Well nourished, obese. Chronically ill appearing. HEENT: NC/AT. Anicteric. Clear Conjunctiva. PERRLA. MM's pink/moist. Neck supple. No thyromegally. No palpable masses. No lymphadenopathy in cervical chain bilaterally. CVS: RRR. No murmurs. No gallops. No rubs. 1+ peripheral edema. Peripheral pulses palpable in all extremities. Pulmonary: CTA bilaterally. No wheezes. No rales. No crackles. No rubs. Spine/MSK: Severely decreased ROM and loss of normal lordosis to lumbar spine. Tender lower left lumbar paraspinous muscles. Positive facet loading on left only. Negative SLT. Pain with flexion. Gait: Not antalgic. No steppage gait. No Trendelenburg gait. No circumspected gait pattern. Heel walk normal. Toe walk normal. Tandem gait normal. Neuro: Awake. Alert. Oriented x3. DTR's intact in all extremities. DTR's equal in all extremities. No focal neurologic deficit. Psych: No apparent distress. Mood normal. Affect normal. No pain behaviors. Tests Educational Testing: Questionnaires PHQ-9: Value SOAPP-R: total score 25 Assessment - [E66.8 - Other obesity] Morbid obesity - [M51.26 - Other intervertebral disc displacement, lumbar region] Bulging lumbar disc - [M47.896 - Other spondylosis, lumbar region] Lumbar spondylosis - [M54.6 - Pain in thoracic spine] Pain in thoracic spine - [M54.50 - Low back pain, unspecified] Low back pain - [M48.062 - Spinal stenosis, lumbar region with neurogenic claudication] Lumbar stenosis with neurogenic claudication - [M54.2 - Cervicalgia] Cervicalgia - [M54.16 - Radiculopathy, lumbar region] Lumbar radiculopathy - [G89.4 - Chronic pain syndrome] Chronic pain syndrome Therapy - Clinical summary provided to patient. Counseling/Education - Pill Count: nine Belbuca Discussed Continue PT. FU 3 months. Plan to get MRI when done with PT Consider MBB with progression thermal RFA thoracic spine. Consider Intracept. Patient is on chronic opioid therapy and tolerating well with no report of adverse symptoms or side effects. Patient reports improvement in pain and functional capacity. Objective measures of pain interference and physical functioning show clinically significant benefit from therapy. Patient expresses understanding of safe and appropriate use of opioids for analgesia. and demonstrates the same. Random pill counts and urine drug screens have been appropriate. This and review of the [facility] database shows no evidence of misuse, abuse, diversion or signs of addiction/use disorder. Patient advised of risks and benefits of medication including the development of tolerance, dependence, withdrawal, addiction, constipation/obstipation, itching, allergic reactions, sedation, worsening depression/anxiety, hormonal perturbations, cognitive impairment or impairment in judgement, psychomotor slowing/impairment, intoxication, injury/accident, DWI/DUI, respiratory depression or failure, development of hyperalgesia, overdose and . Patient is aware that the combination of opioid medications in any form, whether used over the short term or chronically, with other sedative or psychoactive medication including but not limited to benzodiazepines, muscle relaxants, THC, alcohol, hypnotics/sleep medications or other illicit drugs can result in an increased risk of overdose and and is discouraged. Patient is aware that in all cases the lowest effective dose of opioids should be used and doses should be weaned as tolerated as pain improves. Opioid consent form and patient-physician agreement have been reviewed with the patient with all questions satisfactorily elicited asked and answered. These documents have been signed, witnessed and entered into the patient record with a copy provided to the patient. Patient understands that violation of this agreement could result in discontinuation of controlled substances including opioids and possible dismissal from the practice. Patient was further instructed today on taking medication correctly; storing medication securely; disposing of medication properly. Patient was warned against sharing medication and escalating doses without the prescribing provider's knowledge and instruction. Patient was instructed to call the office directly for refills of any controlled substance 4-5 days in advance to avoid unnecessary delays or disruptions in their dosing.. Plan StartCited - Other spondylosis, lumbar region Therapy/Physical Therapy: Physical Therapy Instructions: IN ARARAT Patient is progressing in therapy stating his pain is better and flexibility is also getting better. He would benefit from additional sessions. Celecoxib 200 MG capsule TAKE 1 CAPSULE BY MOUTH DAILY WITH A MEAL, 30 days, 2 refills DULoxetine HCl 60 MG capsule TAKE 1 CAPSULE BY MOUTH DAILY AT BEDTIME, 30 days, 2 refills Methocarbamol 750 MG tablet One tablet three times a day, 30 days, 2 refills EndCited StartCited - Radiculopathy, lumbar region Belbuca 150 MCG Film dissolve 1 film to inside of cheek every 12 hours, be sure to dissolve fully then rinse mouth after, 30 days, 0 refills EndCited Patient was seen today for 4 chronic unstable conditions of the lumbosacral spine, and central nervous system.Without treatment patient is at risk for significant functional limitations resulting in diminished quality of life and impaired age appropriate activities of daily living. Multiple documents have been reviewed in combination with today's evaluation including imaging studies, outside provider notes, laboratory data, patient self-report questionnaires, and [place] prescription monitoring database entries. Significant social barriers exist to compliance resulting in limited prognosis. Decision to proceed with interventional therapies was made at the time of today's visit. Practice Management Use of tobacco assessment performed and patient screened for future fall risk documentation of any fall with injury in past year Review of medications documented; Standardized depression screening: positive for symptoms and for adult impression and score 15. A total of 15 minutes were spent on this patient's care and evaluation, as above. Results of this interaction were communicated directly to the patient's referring and/or primary care provider. All imaging studies and test results discussed in the above document were personally reviewed and evaluated by the performing provider. For all patients on acute or chronic opioids, ongoing need for opioid analgesia is assessed at each visit with consideration of discontinuation or wean to lowest effective dose when possible and appropriate. Contents of this document have been edited for correctness, but may be subject to typographical or metal drawer errors. Verify all diagnoses, medications, dosages, and patient instructions with patient and/or the originator of this document. Telehealth Visit: Audio only. Patient called from their home. Provider located at the [facility] office. Patient consents to bill insurance for this visit. No exam completed. If at anytime it was felt patient need to be evaluated arrangements would be made. Care Team - ANJELICA CALDERON MD - Cardiovascular Disease - LI GUILLAUME MD - Pulmonary Disease - JAMILAH ZAPIEN - Primary Care - NICK NELSON - Psychiatric/Mental Health Health Reminders - Assess BMI satisfied 08/29/2023. - Assess Tobacco Use satisfied 08/29/2023. - Depression Screening satisfied 08/29/2023. - Follow up plan for Depression Screening satisfied 08/29/2023.
--- OUTSIDE RECORDS SUMMARY | 2025-03-31 00:52 | XMS_ITS | Data Portability ---
Author Organization [place] [facility] [employer], Main Office Address [address] [place] [address] Assessment Encounter Date Assessment Date Assessment LastModified by Organization Details LastModified Time 10/03/2024 10/03/2024 This note is dictated and transcribed by [employer]. Boxing Instructor variances may occur. Despite proofreading, typographical errors may occur. Occasional wrong-word or 'wnjoe-h-hwcd' substitutions may have occurred due to the inherent limitations of voice recording. Read the chart carefully and recognize, using context, where substitutions have occurred. Not available 10/03/2024 11:27:46 11/26/2024 11/26/2024 This note is dictated and transcribed by [employer]. Boxing Instructor variances may occur. Despite proofreading, typographical errors may occur. Occasional wrong-word or 'ftxgn-p-cskc' substitutions may have occurred due to the inherent limitations of voice recording. Read the chart carefully and recognize, using context, where substitutions have occurred. Not available 11/26/2024 15:27:05 12/10/2024 12/10/2024 This note is dictated and transcribed by [employer]. Boxing Instructor variances may occur. Despite proofreading, typographical errors may occur. Occasional wrong-word or 'vdegp-h-eivm' substitutions may have occurred due to the inherent limitations of voice recording. Read the chart carefully and recognize, using context, where substitutions have occurred. Not available 12/10/2024 12:42:15 02/20/2025 02/20/2025 Assessment: Ex nicotine smoke: 1.5 ppd [id number] = 30 years = 42 pack years High IgE with multiple environmental allergies Mild ACO Atelectasis Hypoventilation and respiratory failure, using and benefiting from AVAPS and O2 Plan: The following were reviewed and explained to the patient: PFT 07/21/21 FEV1 2.95 L (67%), BD 360 mL = 14 % PFT 09/07/22 FEV1 2.87 L (66%), BD 250 mL = 10% PFT 01/23/24 FEV1 2.71 L (63%), BD -10 mL = -<1% PFT 02/19/25 FEV1 2.98 L (73%), BD 480 mL = 19% Chest CT 11/12/21 granulomatous lung disease Chest 1 view 11/15/21 right basal atelectasis Lab data 02/23/22 multiple environmental allergies, high IgE The patient is cleared for contemplated lumbar thermal radiofrequency ablation and general anesthesia under Dr. Dennis Suh. The patient will bring AVAPS unit and inhalers for perioperative use. Aggressive pulmonary toilet is recommended to clear airways of mucus and other secretions by deep breathing, incentive spirometry, postural drainage and percussion. Oxygen supplementation may be necessary to keep saturation between 89-94%. Atrovent nasal spray 0.06% not formulary. Continue fluticasone and azelastine nasal spray. Continue AVAPS-AE: TV 550 ml max pressure 35 cmH2O EPAP 5-15 cmH2O PS 13-30 cmH2O O2 3.5 Lpm AVAPS-AE compliance downloaded and interpreted. Data reviewed and explained to the patient. Patient used PAP > 4 hours 94% of the time. Oxygen supplementation: 3 Lpm [...] 2 puffs BID is no longer covered. Continue Trelegy Ellipta 200/62.5/25 mcg 1 puff daily. Gargle after use. The patient does not [...] PCP for further management. Follow-up: 1 year, February 2026 Not available 02/20/2025 17:32:38 Plan of Treatment Reminders Order Date Submit Date Provider Last Modified By Organization Details Last Modified Time Details Appointments Any 30 2025 02:00P Milton Jacinto MD Not available Not available Not available Lab None recorded. Referral None recorded. Procedures colonosco py screening (PROC) [address] [facility] (Pre-Screen), [address] [place], [address], 03/24/2025 09:26:14 Surgeries None recorded. Imaging None recorded. Medication Orders albuterol sulfate HFA 90 mcg/actua tion aerosol inhaler 2024 025 [id number], [address], [place], [id number], 02/20/2025 15:36:42 Trelegy Ellipta 200 mcg-62.5 mcg-25 mcg powder for inhalatio n 2024 025 [facility] #[id number], [address], [place], [id number], 02/20/2025 15:40:22 azelastin e 137 mcg (0.1 %) nasal spray 2024 025 [id number], [address] , [place], [place], [id number], 02/20/2025 15:36:45 fluticaso ne propionat e 50 mcg/actua tion nasal spray,misa pension 2024 025 [facility] #[id number], [address] , [place], [place], [id number], 02/20/2025 15:36:44 Golytely 236 gram-22.7 4 gram-6.74 gram-5.86 gram oral solution 2024 025 [facility] #[id number], [address], [place], [place], [id number], 02/11/2025 20:19:54 Patient TargetsNo targets recorded. Patient Instructions Encounter Date Encounter Id Patient Instructions Last Modified By Organization Details Last Modified Time 12/18/2024 [id number] cardiac clearance* [email or web address] Not availa ble 12/25/2024 08:02:15 [email or web address] Not available 06/2024 15:06:00 PT NEEDS A SCREENING COLON . R/O POLYP . RECOMMEND A COLONOSOPY . . Risks benefits and complications were explained to the pt. ( BLEEDING PERFORATION , INFECTION , ). PT VERBALIZES UNDERSTANDING AND IS WILLING TO PROCEDE . [email or web address] Not available 12/18/2024 15:06:13 02/20/2025 [id number] complete PFT w/ post bronchodilator spirometry* - Please call patient to schedule. NPAN [id number] per payor website. Not available 02/20/2025 15:36:34 Reason for Referral None Reported. Results Created Date Observation Date Name Description Value Unit Range Abnormal Flag Note LastModifiedBy Organization Detail LastModifiedTime 02/21/2002/19/2025 compl ete PFT w/ post [facility] hodil ator alma metry * No observ ation record ed. [facility] (One Call Scheduling) [address] [place], [address], 02/20/2025 09:22:05 Result Notes None recorded. Problems Name Problem SNOMED Code Status Onset Date Resolution Date Notes Provider Name and Address Organization Details Recorded Time Morbid obesity 700576123 Active 2020 Louie Jacinto MD [address], [place], [address], [facility] 07:37:23 Osteoarthri tis of right knee joint 0106909781557 00 Active 2020 Louie Jacinto MD [address], [place], [address], [place] [facility] 07:37:21 Plantar fasciitis of right foot 1789549060705 9101 Active 2021 Louie Jacinto MD [address], [place], [address], [place] [facility] 07:37:18 Diabetes mellitus 61875559 Active 2021 Louie Jacinto MD [address], [address], [place], [address], [place] [facility] 07:37:33 Gout 39045581 Active 2021 Louie Jacinto MD [address], [address], [place], [address], [place] [facility] 07:37:31 Peroneal tendinitis of right lower limb 7396905400768 09 Active 2021 Louie Jacinto MD [address], [address], [place], [address], [place] [facility] 07:37:20 Posterior rhinorrhea 19959230 Active 2022 Louie Jacinto MD [address], [address], [place], [address], [place] [facility] 07:37:17 Tinea pedis 5802920 Active 2022 Louie Jacinto MD [address], [address], [place], [address], [place] [facility] 07:37:26 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 07:37:28 Congestive heart failure 18021952 Active 2024 Louie Jacinto MD [address], [place], [address], [facility] 07:37:34 Notes:Medical History: Bipol ar depression/Anxiety Bilateral hearing loss COVID infections 03/2020, 10/2021 Rhinitis with postnasal drip to multiple environmental allergens IgE 825 IU/mL Eosinophils 160/uL AAT PiMM 155 mg% Mild ACO Granulomatous lung disease Obesity with MORGAN and mild restrictive airflow impairment on AVAPS for chronic hypercarbic respiratory failure c/o [facility] Severe LVE Mild LAE Mild MR/CT/TR PASP 37 mmHg Hypertension EF 50% Hyperlipidemia T2DM with neuropathy Atrial fibrillation HFpEF since 04/2021 c/o Dr. 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 Procedures Surgical History Date Name Laterality Status Provider Name and Address Organization Details Recorded Time 12/11/19 25 Partial Nail Avulsion Chemical Matrixectomy-Righ t completed Jorge Cohen DPM [address], [address], [place], [address], [employer] 12/10/2024 12:40:53 10/04/19 25 Nail Debridement completed Jorge Cohen DPM [address], [place], [address], [facility] 10/03/2024 11:27:04 09/11/19 25 Nail Debridement completed Jorge Cohen DPM [address], [address], [place], [address], [facility] 09/10/2024 14:13:46 08/30/19 25 Abscess Drainage completed Jorge Cohen DPM [address], [place], [address], [facility] 08/29/2024 16:35:29 01/16/20 24 Nail Debridement completed Jorge Cohen DPM [address] [facility], [address], [place], [address], [facility] 01/16/2024 13:39:40 Tonsillectomy completed Not Available [facility] 06/15/2022 19:28:19 Hernia Repair completed Not Available [facility] 06/15/2022 19:28:19 Cardiac Cath completed Not Available [facility] 06/15/2022 19:28:19 Cardiac Cath completed Not Available [facility] 06/15/2022 19:28:19 Imaging Results None recorded. Procedure Notes None recorded. Medical Equipment None Reported. Allergies Allergen ID Allergen Name Allergen Category Reaction Reaction Severity Criticality Documentation Date Start Date Code Code System Note Provider Name and Address Organization Details Recorded Time 76503 Product containin g penicilli n (product) medicatio n Not available Not available Not available 06/15/2022 48966 8001 SNOMED Not Available [facility] 19:30:00 59664 dogfennel pollen extract medicatio n itching rash Not available Not available low 03/17/20252024 18052 8 RxNorm Cats Not Available [facility] - External Data Service - prod 12:22:59 Medications Name Sig Start Date Stop Date Status Note LastModified by Organization Details LastModified Time losartan 50 mg tablet TAKE 1 TABLET BY MOUTH TWICE DAILY active Not Available Not Available No t Available celecoxib 200 mg capsule TAKE 1 CAPSULE BY MOUTH DAILY WITH A MEAL 02/20 completed Not Available Not Available Not Available cyclobenzap rine 10 mg tablet TAKE 1 TABLET BY MOUTH EVERY 8 HOURS 05/25 completed Not Available Not Available Not Available ziprasidone 80 mg capsule TAKE 1 CAPSULE BY MOUTH EVERY DAY AT BEDTIME 02/11 completed Not Available Not Available Not Available furosemide 40 mg tablet TAKE 1 TABLET BY MOUTH TWICE DAILY active Not Available Not Available No t Available metolazone 2.5 mg tablet TAKE 1 TABLET BY MOUTH MONDAY, MONDAY , MONDAY ONLY IF NEEDED FOR WEIGHT GAIN MORE THAN 5 LB OR INCREASIN G LEG SWELLING active Not Available Not Available No t Available atorvastati n 40 mg tablet TAKE 1 TABLET BY MOUTH EVERY DAY 04/11 completed Not Available Not Available Not Available methocarbam ol 500 mg tablet 05/25 completed Not Available Not Available Not Available metformin 500 mg tablet TAKE 2 TABLETS BY MOUTH TWICE DAILY [...] TABLET BY MOUTH EVERY DAY AT BEDTIME 02/20 completed Not Available Not Available Not Available carvedilol 6.25 mg tablet TAKE 1 TABLET BY MOUTH TWICE DAILY 02/19 completed Not Available Not Available Not Available prednisone 10 mg tablet 03/30 completed Not Available Not Available Not Available doxycycline hyclate 100 mg capsule TAKE 1 CAPSULE BY MOUTH TWICE DAILY WITH FOOD 02/11 completed Not Available Not Available Not Available atorvastati n 20 mg tablet TAKE 1 TABLET BY MOUTH EVERY DAY AT BEDTIME 12/06 completed Not Available Not Available Not Available carvedilol 12.5 mg tablet TAKE 1 TABLET BY MOUTH TWICE DAILY active Not Available Not Available No t Available naproxen 375 mg tablet 03/30 completed [...] 1 VIAL VIA NEBULIZER FOUR TIMES DAILY 02/19 completed Not Available Not Available Not Available clindamycin HCl 300 mg capsule TAKE 1 CAPSULE BY MOUTH EVERY 6 HOURS FOR 1 WEEK 08/29 completed Not Available Not Available Not Available albuterol sulfate 2.5 mg/3 mL (0.083 %) solution for nebulizatio n USE 3 ML VIA NEBULIZER THREE TIMES DAILY NEEDED 02/11 completed Not Available Not Available Not Available trazodone 50 mg tablet TAKE 1 TABLET BY MOUTH EVERY DAY AT BEDTIME NEEDED 02/08 /2024 completed Not Available Not Available Not Available [...] tablet TAKE 1 TABLET BY MOUTH TODAY 02/11 completed Not Available Not Available Not Available glyburide 2.5 mg tablet TAKE 1 TABLET BY MOUTH EVERY DAY 02/20 completed Not Available Not Available Not Available hydrocodone 5 mg-acetamin ophen 325 mg [...] 30 UNITS UNDER THE SKIN AT BEDTIME 02/11 completed Not Available Not Available Not Available clindamycin HCl 150 mg capsule 02/08 completed Not Available Not Available Not Available hydroxyzine pamoate 50 mg capsule TAKE 1 TO 2 CAPSULES BY MOUTH TWICE DAILY NEEDED FOR ANXIETY OR SLEEP active Not Available Not Available No t Available potassium chloride ER 10 mEq tablet,exte nded release TAKE 1 TABLET BY MOUTH TWICE DAILY DIRECTED 02/11 completed Not Available Not Available Not Available metronidazo le 500 mg tablet TAKE 1 TABLET BY MOUTH EVERY 8 HOURS FOR 1 WEEK 12/06 completed Not Available Not Available Not Available doxepin 10 mg capsule TAKE 1 CAPSULE BY MOUTH EVERY DAY AT BEDTIME 02/20 completed Not Available Not Available Not Available ciprofloxac in 500 mg tablet 05/11 completed Not Available Not Available Not Available sulfamethox azole 800 mg-trimetho prim 160 mg tablet TAKE 1 TABLET BY MOUTH EVERY 12 HOURS FOR 1 WEEK 02/11 completed Not Available Not Available Not Available peg-electro lyte solution 420 gram oral solution 03/14 completed Not Available Not Available Not Available omeprazole 40 mg capsule,del ayed release TAKE 1 CAPSULE BY MOUTH AT BEDTIME active Not Available Not Available No t Available aspirin 81 mg tablet,jax yed release TAKE 1 TABLET BY MOUTH EVERY DAY DIRECTED active Not Available Not Available No t Available tramadol 50 mg tablet 02/15 completed Not Available Not Available Not Available acetaminoph en 500 mg tablet 03/30 completed Not Available Not Available Not Available triamcinolo ne acetonide 0.1 % topical cream APPLY A THIN LAYER TO THE AFFECTED AREA(S) BY TOPICAL ROUTE 2 TIMES PER DAY active Not Available Not Available No t Available spironolact one 25 mg tablet 03/30 completed Not Available Not Available Not Available ondansetron 8 mg disintegrat ing tablet 02/08 completed Not Available Not Available Not Available lamotrigine 25 mg tablet 09/07 completed Not Available Not Available Not Available potassium chloride 20 mEq/15 mL oral liquid TAKE 15 ML BY MOUTH DAILY 02/11 completed Not Available Not Available Not Available ketorolac 10 mg tablet 03/30 completed Not Available Not Available Not Available oxycodone-a cetaminophe n 5 mg-325 mg tablet 02/15 completed Not Available Not Available Not Available famotidine 20 mg tablet 03/30 completed Not Available Not Available Not Available methocarbam ol 750 mg tablet TAKE 1 TABLET BY MOUTH THREE TIMES DAILY 02/20 completed Not Available Not Available Not Available nifedipine ER 60 mg tablet,exte nded release 24 hr 03/30 completed Not Available Not Available Not Available pantoprazol e 40 mg tablet,jax yed release 05/25 completed Not Available Not Available Not Available buspirone 30 mg tablet TAKE 1 TABLET BY MOUTH TWICE DAILY DIRECTED 02/11 completed Not Available Not Available Not Available nystatin 100,000 unit/gram topical cream APPLY TOPICALLY TO THE AFFECTED AREA TWICE DAILY FOR 2 WEEKS 02/11 completed Not Available Not Available Not Available buspirone 10 mg tablet TAKE 2 TABLETS BY MOUTH THREE TIMES DAILY active Not Available Not Available No t Available divalproex ER 500 mg tablet,exte nded release 24 hr TAKE 1 TABLET BY MOUTH EVERY DAY 02/20 completed Not Available Not Available Not Available lidocaine 5 % topical patch 03/30 [...] DIRECTED TO TAKE INSULIN FOUR TIMES DAILY 02/19 completed Not Available Not Available Not Available montelukast 10 mg tablet 03/30 completed Not Available Not Available Not Available bisacodyl 5 mg tablet,jax yed release 03/14 completed Not Available Not Available Not Available furosemide 20 mg tablet 03/30 completed Not Available Not Available Not Available ziprasidone 40 mg capsule TAKE 1 CAPSULE BY MOUTH EVERY DAY AT BEDTIME. TAKE WITH 60MG CASULE active Not Available Not Available No t Available gabapentin 100 mg capsule 03/30 completed Not Available Not Available Not Available azelastine 137 mcg (0.1 %) nasal spray [place] 2 sprays twice a day by intranasa l route. 2024 active Not Available Not Available Not Avai lable cefuroxime axetil 500 mg tablet 05/11 completed [...] feet BY TOPICAL ROUTE ONCE DAILY,2 weeks active Not Available Not Available No t Available hydroxyzine HCl 10 mg tablet 09/07 [...] nsion USE 1 SPRAY IN EACH NOSTRIL EVERY DAY active Not Available Not Available No t Available metformin ER 500 mg tablet,exte nded release 24 hr TAKE 2 TABLETS BY MOUTH TWICE DAILY 02/11 completed Not Available Not Available Not Available clotrimazol e 1 % topical cream APPLY TO THE AFFECTED AND SURROUNDI NG AREAS OF SKIN plantar feet BY TOPICAL ROUTE 2 TIMES PER DAY IN THE MORNING AND EVENING 05/25 completed Not Available Not Available Not Available doxycycline hyclate 100 mg tablet TAKE 1 TABLET BY MOUTH TWICE DAILY FOR 10 DAYS 02/11 completed Not Available Not Available Not Available lamotrigine 100 mg tablet TAKE 1 TABLET BY MOUTH TWICE DAILY DIRECTED 02/11 completed Not Available Not Available Not Available glipizide 5 mg tablet TAKE 1 TABLET BY MOUTH EVERY DAY 02/11 completed Not Available Not Available Not Available fluticasone propionate 110 mcg/actuati on HFA aerosol inhaler INHALE 2 PUFFS INTO LUNGS TWICE DAILY 02/19 completed Not Available Not Available Not Available naproxen 500 mg tablet TAKE 1 [...] s pen USE DIRECTED BY SLIDING SCALE 02/20 completed Not Available Not Available Not Available divalproex ER 250 mg tablet,exte nded [...] TABLET BY MOUTH EVERY DAY WITH MEALS 02/11 completed Not Available Not Available Not Available Alcohol Prep Pads USE DIRECTED 02/11 completed Not Available Not Available Not Available Spiriva with HandiHaler 18 mcg and inhalation capsules 02/15 completed Not Available Not Available Not Available duloxetine 30 mg capsule,del ayed release 09/07 completed Not Available Not Available Not Available duloxetine 60 mg capsule,del ayed release TAKE 1 CAPSULE BY MOUTH DAILY AT BEDTIME 02/20 completed Not Available Not Available Not Available Tucks active Not Available Not Availa ble Not Available apple cider vinegar 02/15 completed Not Available Not Available Not Available BD Ultra-Fine Original Pen Needle 29 gauge x 1/2 USE DIRECTED 04/11 completed Not Available Not Available Not Available Advair HFA 115 mcg-21 mcg/actuati on aerosol inhaler INHALE 2 PUFFS BY MOUTH TWICE DAILY 02/20 completed Not Available Not Available Not Available budesonide- formoterol HFA 160 mcg-4.5 mcg/actuati on aerosol inhaler INHALE 2 PUFFS BY MOUTH TWICE DAILY 02/11 completed Not Available Not Available Not Available peg 3350-electr olytes 236 gram-22.74 gram-6.74 gram-5.86 gram solution TAKE DIRECTED 02/11 completed Not Available Not Available Not Available Lantus Solostar U-100 Insulin 100 unit/mL [...] TAKE 1 TABLET BY MOUTH EVERY DAY 02/11 completed Not Available Not Available Not Available Jardiance 25 mg tablet TAKE 1 TABLET BY MOUTH EVERY DAY active Not Available Not Available No t Available Humalog KwikPen U-200 Insulin 200 unit/mL (3 mL) subcutaneou s Inject by subcutane ous route. active Not Available Not Available No t [...] Needle 31 gauge x /16 USE DIRECTED 02/11 completed Not Available Not Available Not Available Xtampza ER 9 mg capsule sprinkle TAKE 1 CAPSULE BY MOUTH TWICE DAILY 09/07 completed Not Available Not Available Not Available TRUEplus Pen Needle 31 gauge x /16 02/08 completed Not Available Not Available Not Available Accu-Chek Guide Glucose Meter USE DIRECTED 02/11 completed Not Available Not Available Not Available Fiasp U-100 Insulin 100 unit/mL subcutaneou s solution USE PER SLINDING SCALE 02/20 completed Not Available Not Available Not Available OneTouch Delica Plus Lancet 33 gauge CHECK EVERY MORNING 02/11 completed Not Available Not Available Not Available OneTouch Delica Plus Lancet 30 gauge USE DIRECTED 02/11 completed Not Available Not Available Not Available Gvoke HypoPen 2-Pack 1 mg/0.2 mL subcutaneou s auto-inject or INJECT 1 PEN UNDER THE SKIN ONCE. MAY REPEAT ONCE AFTER 15 MINUTES IF NO RESPONSE 02/20 completed Not Available Not Available Not Available Breztri Aerosphere 160 mcg-9mcg-4. 8mcg/actuat ion HFA aerosol inhaler INHALE 2 PUFFS BY MOUTH TWICE DAILY 02/11 completed Not Available Not Available Not Available Trelegy Ellipta 200 mcg-62.5 mcg-25 mcg powder for inhalation INHALE 1 PUFF BY MOUTH EVERY DAY active Not Available Not Available No t Available Ozempic 1 mg/dose (4 mg/3 mL) subcutaneou s pen injector ADMINISTE R 1 MG UNDER THE SKIN WEEKLY 12/18 completed Not Available Not Available Not Available Mounjaro 7.5 mg/0.5 mL subcutaneou s pen injector ADMINISTE R 7.5 MG UNDER THE SKIN WEEKLY 02/19 completed Not Available Not Available Not Available Mounjaro 5 mg/0.5 mL subcutaneou s pen injector ADMINISTE R 5 MG UNDER THE SKIN WEEKLY 02/19 completed Not Available Not Available Not Available Mounjaro 10 mg/0.5 mL subcutaneou s pen injector ADMINISTE R 10 MG UNDER THE SKIN 1 TIME A WEEK active Not Available Not Available No t Available Mounjaro 2.5 mg/0.5 mL subcutaneou s pen injector ADMINISTE R 2.5 MG UNDER THE SKIN WEEKLY FOR 4 WEEKS 12/18 completed Not Available Not Available Not Available Vitals Date Recorded Body height Body mass index (BMI) Body weight Body temperature Oxygen saturation Heart rate Systolic And Diastolic Provider Name and Address Organization Details Last Updated DateTime 5 182.88 cm 54.2 kg/m2 861541. 95 g 97.7 [degF] 94 % 104 /min 135/83 mm[Hg] Michele Nam Jessee [facility] 5 11:04:12 Date Recorded Body height Body mass index (BMI) Body weight Provider Name and Address Organization Details Last Updated DateTime 11/26/2024 182.88 cm 54.2 kg/m2 123085.95 g Felicia Coleman [facility] 11/26/2024 14:01:50 Date Recorded Body height Body mass index (BMI) Body weight Heart rate Respiratory rate Oxygen saturation Provider Name and Address Organization Details Last Updated DateTime 5 182.88 cm 54.2 kg/m2 218599. 95 g 99 /min 18 /min 97 % Felicia Coleman [facility] 5 11:39:51 Date Recorded Body height Body mass index (BMI) Body weight Heart rate Oxygen saturation Systolic And Diastolic Provider Name and Address Organization Details Last Updated DateTime 5 182.88 cm 56.1 kg/m2 768007. 24 g 96 /min 96 % 138/80 mm[Hg] Juany Price Jessee [facility] 15:06:11 Date Recorded Heart rate Respiratory rate Provider N patience and Address Organization Details Last Updated DateTime 02/20/2025 86 /min 15 /min Louie Jacinto MD [address] [place] [address], [address], [facility] 02/20/2025 15:42:07 Date Recorded Body height Body mass index (BMI) Body weight Body temperature Heart rate Oxygen saturation Systolic And Diastolic Provider Name and Address Organization Details Last Updated DateTime 5 182.88 cm 55.3 kg/m2 805978. 69 g 97.7 [degF] 86 /min 94 % 128/86 mm[Hg] Cleo De Los Santos MA [employer] 5 15:03:07 Social History Question Answer Notes LastModified by Organizat ion Details LastModified Time Tobacco Smoking Status Former Smoker Cleo De Los Santos MA null, [employer] 09/07/2022 12:01:34 What Is Your Level Of Caffeine Consumption? Heavy Information not available 05/25/2023 In The 14 Days Before Symptom Onset, Have You Had Close Contact With A Laboratory-confir med COVID-19 While That Case Was Ill? No MIGRATION.62930 [id number] Information not available 06/15/2022 In The 14 Days Before Symptom Onset, Have You Had Close Contact With A Person Who Is Under Investigation For COVID-19 While That Person Was Ill? No MIGRATION.43057 00080 Information not available 06/15/2022 What Type Of Diet Are You Following? DIABETIC Low Sodium/diab etic/gout Diet MIGRATION.03116 38399 Information not available 06/15/2022 Do You Have An Electrostatic Air Filter? No MIGRATION.80285 22658 Information not available 06/15/2022 When Did You Quit Smoking? 1-5yearssinc elastcigaret te Information not available 05/25/2023 Are There Any Guns Present In Your Home? No MIGRATION.43148 05261 Information not available 06/15/2022 Do You Have A Humidifier? Yes MIGRATION.98660 15268 Information not available 06/15/2022 Where Do You Live? [place] MIGRATION.96022 69015 Information not available 06/15/2022 Do You Have Moisture Problems In Your Home? No MIGRATION.07802 98735 Information not available 06/15/2022 What Was The Date Of Your Most Recent Tobacco Screening? 02/20/2025 Information not available 02/20/2025 Have You Ever Been Counseled For Unhealthy Alcohol Use? No MIGRATION.41067 68984 Information not available 06/15/2022 Do You Have Any Pets? Yes MIGRATION.64039 85896 Information not available 06/15/2022 Do You Use Your Seat Belt Or Car Seat Routinely? Yes Information not available 09/07/2022 Do You Have Smoke And Carbon Monoxide Detectors In Your Home? Yes MIGRATION.59555 28103 Information not available 06/15/2022 At What Age Did You Start Smoking Tobacco? 14 Information not available 05/25/2023 Are You Passively Exposed To Smoke? Yes Outside MIGRATION.82113 55839 Information not available 06/15/2022 Do You Use Sunscreen Routinely? No MIGRATION.88941 72171 Information not available 06/15/2022 Has Tobacco Cessation Counseling Been Provided? No MIGRATION.51278 66348 Information not available 06/15/2022 How Many Years Have You Smoked Tobacco? 20 Information not available 05/25/2023 Have You Recently Traveled Abroad? No MIGRATION.36584 94854 Information not available 06/15/2022 Do You Have Any Dietary Restrictions? No MIGRATION.07039 42503 Information not available 06/15/2022 Sex: Unknown Functional Status Question Answer Note LastModified by Watch Over Me ion Details LastModified Time Do you use any illicit or recreational drugs? No MIGRATION.245088 8748 Information not available 06/15/2022 Do you or have you ever used any other forms of tobacco or nicotine? No MIGRATION.589965 7478 Information not available 06/15/2022 What is your level of alcohol consumption? Occasional MIGRATION.544041 3547 Information not available 06/15/2022 Have you been exposed to chemicals or toxins? not that aware of Information not available 05/25/2023 Mental Status Question Answer Note LastModified by Organization D etails LastModified Time Do you feel stressed (tense, restless, nervous, or anxious, or unable to sleep at night)? [id number] Information not available 05/25/2023 Family History Relationship Description Onset Age of this Age Resolved Age Notes LastModified by Organization Details LastModified Time Father Heart disease MIGRATION.468 [id number] Not available 06/15/2022 19:28:20 Father Hypertensive disorder MIGRATION.636 [id number] Not available 06/15/2022 19:28:20 Father Diabetes mellitus MIGRATION.455 [id number] Not available 06/15/2022 19:28:20 Father Arthritis MIGRATION.599 [id number] Not available 06/15/2022 19:28:20 Father Coronary artery bypass graft MIGRATION.747 [id number] Not available 06/15/2022 19:28:20 Brother Diabetes mellitus MIGRATION.007 [id number] Not available 06/15/2022 19:28:20 Medical History Condition [...] ICD10 Code Diagnosis IMO Codes Diagnosis Note [id number] Eugenio Prather MD [facility] [address] [address] 03/30/2021 00:00:00 03/30/2021 10:27:54 [id number] MD TACHO Gan_GMJulia [address] [address] 05/11/2021 00:00:00 05/11/2021 10:46:15 [id number] Jorge Cohen DPM S_[facility]G Pod[address] [address] 05/17/2021 00:00:00 05/17/2021 19:30:11 [id number] Jorge Cohen [facility]PM [facility] [address] [place] [address] 0 06/07/2021 00:00:00 06/07/2021 09:45:09 [id number] Jorge Cohen DPM S_GMJulia Podiatr[address] [address] 07/12/2021 00:00:00 07/12/2021 11:54:23 [id number] MD TACHO Gaitan_GMG General Surgery [address] [place] [address] 1 07/15/2021 00:00:00 07/15/2021 14:18:09 [id number] Troy chang MD [facility] General Surgery [address] [place] [address] 1 08/31/2021 00:00:00 08/31/2021 14:38:43 [id number] Jorge Cohen DPM [facility] Podiatry [place] [address] [place] [address] 0 09/09/2021 00:00:00 09/09/2021 10:06:50 [id number] Jorge Cohen DPM S_[facility] Podiatr[address] [address] 0 09/16/2021 00:00:00 09/16/2021 09:46:04 [id number] Jorge Cohen DPM [facility] [address] [place] [address] 0 10/21/2021 00:00:00 10/21/2021 15:01:41 [id number] MD [facility]ACH[facility] [address] [place] [address] 0 02/15/2022 00:00:00 02/23/2022 12:17:29 [id number] MD LEXIE [facility] [address] [place] [address] 0 03/14/2022 00:00:00 04/28/2022 14:49:33 [id number] Louie Jacinto MD [facility] Pulmonolo [address] [address] 09/07/2022 11:41:33 09/08/2022 08:29:46 Moderate persistent asthma 788434301 J45.40 Posterior rhinorrhea 758 74853 R09.82 [id number] Jorge Cohen DPM [facility] Podiatry [address] [address] 11/17/2022 15:04:20 11/17/2022 15:50:37 Tinea pedis 7990675 B35.3 Bilateral feetPatien t is to soak in warm Epsom salt soaks math for approximat latisha 20 min daily for 5-7 days until infection has resolved. Patient is to dress the wound daily with topical antibiotic ointment and Band-Aid. Patient to monitor for signs of infection, if worsens seek medical attention at the nearest ER.Follow- up in 2 weeks [id number] Jorge Cohen DPM [facility] Podiatry [place] [address] [place] [address] 12/08/2022 12:02:40 12/08/2022 14:09:05 Tinea pedis 0062595 B35.3 Bilateral feetimprov ingwash feet daily with Hibiclens until skin is normal non peelingref ill ketoconazo lefollow-u p in 2 weeks if continues to be problemati c [id number] Louie Jacinto MD S_[facility] Pulmonolo [address] [address] 05/25/2023 12:21:49 05/26/2023 08:21:22 Moderate persistent asthma 415013376 J45.40 Posterior rhinorrhea 758 13944 R09.82 [id number] Louie Jacinto MD S[facility] Pulmon[address] [address] 01/11/2024 10:26:48 01/11/2024 15:13:26 Moderate persistent asthma 661302720 J45.40 Posterior rhinorrhea 758 91370 R09.82 [id number] Jorge Cohen DPM [facility] Podiatry [address] [address] 0 01/16/2024 12:10:40 01/19/2024 10:51:05 Diabetes mellitus 31905380 E11.9 continue diabetic control per PCP recommenda tion Morbid obesity 825615966 E66.01 recommend weight loss Dystrophia unguium 59516 009 L60.3 Nails 1 through 10 were debrided with sharp mechanical debridemen t without incident. Nails were debrided and greater than 50% length and thickness where needed. Unable to cut own toenails 945897773 Z74.1 Secondary to COPD [id number] Louie Jacinto MD [facility] Pulmonolo gy [place] [address] [address] 04/11/2024 14:09:27 04/26/2024 15:19:23 Posterior rhinorrhea 21116278 R09.82 Asthma-chr onic obstructive pulmonary disease overlap syndrome 6807453372 0874190 J44.9 [id number] Jorge Cohen DPM [facility] [address] [place] [address] 08/29/2024 16:06:11 09/16/2024 12:19:51 Abscess of toe of right foot 1840540440 6088335 L02.611 286274 I&D abscess right great toe-- 08/29/2024 Cellulitis of toe of right foot 0178572312 L03.031 [id number] patient finished a round of doxycyclin e-- started on 07/09/2024 for 10 days Paronychia of toe of right foot 8391898083 1030246 L03.031 84185041 partial nail avulsion [facility]d [facility] for worsening signs of infection at present seek medical attention immediatel y Pain of to e of right foot 0304401752 62728 M79.674 305382 secondary to above Diabetic s kin disorder 6676502577 E11.628 Z79.4 11653407 recommend tight glucose control to prevent worsening of infection [id number] Jorge Cohen DPM [facility] [address] [place] [address] 0 09/10/2024 13:54:13 09/11/2024 09:32:49 Abscess of toe of right foot 8705793139 1956475 L02.611 498258 resolved Dystrophia unguium 51247 009 L60.3 1009 Nails 1 through 10 were debrided with sharp mechanical debridemen t without incident. Nails were debrided and greater than 50% length and thickness where needed.fol low-up 3 months as needed Unable to perform personal care activity 362236641 Z78.9 91089377 secondary to COPD and morbid obesity [id number] Jorge Cohen DPM [facility] Podiatry [place] [address] [place] [address] 0 10/03/2024 10:59:44 10/07/2024 07:59:47 Ingrowing toenail 683802125 L60.0 1001 right great toepartial nail debridemen twound care dailyFollo w-up in 1 month- if infection continues follow-up in 1 week [id number] Jorge Cohen DPM [facility] Podiatry [place] [address] [address] 11/26/2024 13:59:25 11/27/2024 16:30:52 Paronychia of toe of right foot 4616012847 2434202 L03.031 57591624 partial nail avulsion Healed- no further signs of infectionp atient will need to be scheduled for partial matrixecto myfinished oral antibiotic sreturn for procedure right great toe lateral nail corner [id number] Jorge Cohen DPM [facility] Podiatry [place] [address] [place] [address] 12/10/2024 11:31:08 12/12/2024 12:01:20 Ingrowing toenail 111264355 L60.0 1001 right great toepartial matrixecto my performed todayMonit or for signs of infection present seek medical attention immediatel ywound care dailydaily dressings reviewed with the patientFol low-up in 2 weeks [id number] Ana María Herrera MD S_G General Surgery [address] [address] 12/18/2024 14:43:01 12/18/2024 15:33:56 Screening for malignant neoplasm of colon 122563747 Z12.11 [id number] Congestive heart failure 79240647 I50.9 5263339504 [id number] Louie Jacinto MD S_G Pulmonolo gy [place] [address] [place] [address] 0 02/20/2025 14:31:59 02/21/2025 16:19:34 Asthma-chronic obstructive pulmonary disease overlap syndrome 3428493583 0567168 J44.9 Posterior rhinorrhea 758 67081 R09.82 Health Concerns Section Related Observation LastModified by Organization Detai ls LastModified Time None Recorded Concern Status LastModified by Organization Details LastModified Time None Recorded Advance Directives Directive None Recorded Payers Insurance Date Sequence Insurance Name Policy Number Policy Tesfaye Covered Member ID Tesfaye Member ID Guarantor Name 02/25/2024 2 UNSPECIFIED REMIT PAYOR Jerzy Leahy 02/20/2025 1 [place] Jerzy Leahy [id number] Jerzy Leahy 02/20/2025 1 [facility] (MEDICARE REPLACEMENT HMO) Jerzy Leahy [id number] Jerzy Leahy 03/19/2025 2 [place] Jerzy Leahy [id number] Jerzy Lehay 02/20/2025 3 [facility] PRIOR TO 11/15/2024 (MEDICAID REPLACEMENT - HMO) [id number] Kane Leahy [id number] Jerzy Leahy 03/19/2025 1 [employer] (MEDICARE REPLACEMENT/A DVANTAGE - PPO) [id number] Jerzy Leahy [id number] Jerzy Leahy 03/17/2025 2 [place] [employer] Kane Leahy [id number] Jerzy Leahy Notes Date Note Type Note Provider Name and Address Organization Details Recorded Time text/html . Patient is a 49-year-old male who returns the office for continued issues with the right great toe. Patient states the ingrown toenail has re-grown and causing pain. Patient states he has redness and discomfort with weight-bearing. Patient states there has been some drainage. Patient denies any other complaints. Patient denies any fever, chills, nausea or vomiting. Jorge Cohen, GRACY [address] [facility], [place], [address], [facility] [employer] [facility] 10/03/2024 11:29:53 5 text/html . Patient is a 49-year-old male who returns the office for follow-up on ingrown toenail of the right great toe lateral corner he has resolve all of the infection he denies any recurrent pain he will require a partial matrixectomy of the nail corner. Patient denies any other complaints. Patient denies any fever, chills, nausea or vomiting. Jorge Cohen DPM [address], [place], [address], [facility] 11/26/2024 15:41:41 5 text/html . Patient is a 49-year-old male who returns the office for follow-up on ingrown toenail of the right great toe without infection. Patient is here for partial matrixectomy. Patient denies any other complaints. Jorge Cohen DPM [address], [place], [address], [facility] 12/10/2024 13:28:31 5 text/html ROS as noted in the HPI PT WAS SEEN IN THE OFFICE TODAY FOR COLON SCREENING . PT DENIES ABD PAIN /N/V/ /WT LOSS. PT HAS COPD/CHF. PT REPORTS LOOSE STOOLS 4-5X DAILY OCCASSIONAL BLEEDING . Ana María Herrera MD [address], [place], [address], [facility] 12/18/2024 15:26:01 5 text/html Primary care/Referring provider: JAMILAH Briseno-CPatient is here to go over his asthma management.Initial development of shortness of breath: 1987Duration of shortness of breath: 35 yearsCondition of shortness of breath: stableTiming of shortness of breath: morningFrequency: every hourLimits activities: yesAggravating factors: walking, showering, dressingAlleviating factors: restModified Medical Research [place] (mMRC) Dyspnea Scale - Grade 2Grade 0 [...] 03/2019Flovent HFA 110 mcg 2 puffs BID 2021-dvair HFA 115/21 mcg 2 puffs BID 2023-01/2025Trelegy Ellipta 200/62.5/25 mcg 1 puff daily since 01/2025Patient's personal best peak flow remains at 370 L/min.Other symptoms:Drooling: noDysarthria: noDysphagia: noWeak mastication: noFacial weakness: noNasal speech: noProtruding tongue: noProductive cough: clearWheezing: noChest tightness: yesOrthopnea: sleeps in a chair using Trilogy for CHFFrequent throat clearing or swallowing: yesPalpitations: noHeartburn: noEdema: yesEnvironmental exposures:Nicotine smoke: 1.5 ppd 3698-7965 = 28 years = 42 pack yearsPaint: [...] a few minutes in the traffic - 1TOTAL SCORE 11Subjectively, patient has a moderate chance of dozing. Louie Jacinto MD [address] [place] [address], [place], [address], [place] [facility] 02/20/2025 17:32:58
--- OUTSIDE RECORDS SUMMARY | 2025-03-31 00:52 | XMS_ITS ---
Author Organization [facility] Address [address] [place] [address] Phone Care Team Providers Care Senior Administrator Support Name Role Phone Marilee Vale MD Primary Care Provider [phone] Aravind Coelho MD Unavailable Juan [facility] Service Episode Status:Identified (Enrolling) Start date:08/28/2024 Related program episode:Juan Chronic Condition Monitoring (Active) Continued Care and Services Coordination
--- OUTSIDE RECORDS SUMMARY | 2025-03-31 00:52 | XMS_ITS | Clinical Summary ---
Author Organization [facility] Address [address] [place] [address] Care Team Providers Care Pediatric Psychiatrist Name Role Phone Kymberly Vaughan MD Unavailable Marilee Vale MD Primary Care Provider + [phone] Allergies Active Allergy Reactions Criticality Noted Date [...] (two) times a day with meals Per [facility] pharmacy this medication has not been filled [...] 08/29/2020 Shortness of breath 08/26/2020 COPD exacerbation ([facility]) 08/26/2020 Bronchitis 08/26/2020 Asthma 08/26/2020 Depression 08/26/2020 Severe sepsis 08/26/2020 Right medial knee pain 07/26/2020 Sprain of medial collateral ligament of right kn ee 07/26/2020 Lumbar strain, initial encounter 04/13/2019 Hernia of anterior abdominal wall 11/23/2015 Overview (07/21/2016): Ventral hernia Cellulitis of lower extremity Acute on chronic diastolic congestive heart fail ure Morbid obesity with BMI of 50.0-59.9, adult ([facility]) Encounters Date Type Department Care Team Description 02/10/2025 Orders Only [facility] Card[facility] [address] [place] [address] Dominik Oliver MD from Last 3 Months Immunizations Immunization Administration Dates Next Due Influenza, [...] 01/28/2021 How often do you attend chur or sabianist services? 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 Gender Identity Not on file Sexual Orientation [...] Procedure Name Priority Date/Time Associated Diagnosis Comments CARDIOLOGY DOCUMENT SCAN Routine 01/20/2025 10:45 AM CDT CARDIOLOGY DOCUMENT SCAN Routine 01/19/2025 10:44 AM CDT CARDIOLOGY DOCUMENT SCAN Routine 01/18/2025 10:42 AM CDT EGFR STAT 07/01/2023 5:03 PM CDT HEMOGLOBIN A1C Add-On 08/30/2020 3:36 AM CDT from Last 3 Months or Most Recently Relevant to Health Maintenance Results * Cardiology Document Scan (01/20/2025 10:45 AM CDT) Anatomical Region Laterality Modality Other us Dominik Oliver MD CV CARDIAC SERVICES PROCEDURES Final Result * Cardiology Document Scan (01/19/2025 10:44 AM CDT) Anatomical Region Laterality Modality Other us Dominik Oliver MD CV CARDIAC SERVICES PROCEDURES Final Result * Cardiology Document Scan (01/18/2025 10:42 AM CDT) Anatomical Region Laterality Modality Other us Dominik Oliver MD CV CARDIAC SERVICES PROCEDURES Final Result * eGFR (07/01/2023 5:03 PM CDT) eGFR [...] ORDERABLES Final Resu lt Performing Organization Address City/[facility]/ZIP Co de Phone Number [facility] [address] [facility] [place] [address] * (ABNORMAL) Hemoglobin A1c (08/30/2020 3:36 AM CDT) Hgb A1C 7.4(H) 4.0 - 5.6 % [facility] Estimated Average Glucose 166 mg/dL [facility] Comment: The ADA recommends reporting an estimated Average Glucose (eAG) with all Hemoglobin A1c results using the equation derived from a study of 507 normal and diabetic adults. Minority populations were underrepresented and children were not included. (Diabetes Care 31:4490-4885, 2008). The eAG is not equivalent to a fasting glucose. Blood specimen (specimen) 08/30/2020 3:36 AM CDT 08/30/2020 4:56 AM CDT Devendra Fulton MD LAB BLOOD ORDERABLE S Final Result [facility] [address] [facility] [place] [address] from Last 3 Months or Most Recently Relevant to Health Maintenance Insurance IDPA [employer] CHOICE MEDICARE PPO [employer] CHOICE MEDICARE PPO [employer] Advance Directives For more information, please contact: [phone] * Full Code (Latest Code Status on File) Date Activated Date Inactivated Comments 01/27/2021 1:54 PM 01/31/2021 4:21 PM * Full Code Date Activated Date Inactivated Comments 08/26/2020 8:05 PM 08/31/2020 6:34 PM * Full Code Date Activated Date Inactivated Comments 11/18/2019 9:22 AM 11/19/2019 10:32 PM Care Teams Pediatric Psychiatrist Relationship Specialty Start Date End Date Marilee Vale MD [address] [place] [id number] PCP - General Emergency Medicine 07/01/23 Kymberly Vaughan MD Consulting Physician Sleep Medicine 11/19/19
--- OUTSIDE RECORDS SUMMARY | 2025-03-31 00:52 | XMS_ITS | Clinical Summary ---
Author Organization [facility] Address [address] [place] [address] Phone Care Team Providers Care Electrical Technician Name Role Phone AUNDREA OLGUIN, LI Unavailable [phone] YSAH SALEH Primary Care Provider [phone] NICK NELSON Unavailable [phone] ANJELICA CALDERON MD Unavailable [phone] Reason for Visit and Chief Complaint RX ISSUE/REFILL Problems Includes: Problems addressed during this encounter and other active Problems All Visits Onset Date Resolved Date Provider Condition S tatus Anxiety Disorder Nos Unknown AKIN Dumont VANE AVAYA ENGINEER-FPA, INTERNAL COMBUSTION ENGINE SUBASSEMBLER-BC Active Last Documented On 2 10:55AM ; [facility] Bipolar I Disorder Unknown AKIN Dumont VANE AP RN-FPA, INTERNAL COMBUSTION ENGINE SUBASSEMBLER-BC Active Last Documented On 2 10:55AM ; [facility] Congestive Heart Failure Unknown AKIN Dumont K ULP AVAYA ENGINEER-FPA, INTERNAL COMBUSTION ENGINE SUBASSEMBLER-BC Active Last Documented On 2 10:27AM ; [facility] Fatty Liver Unknown AKIN Dumont VANE AVAYA ENGINEER-FPA, INTERNAL COMBUSTION ENGINE SUBASSEMBLER-BC Active Last Documented On 2 10:54AM ; [facility] Chronic Obstructive Pulmonar y Disease Unknown AKIN Dumont VANE AVAYA ENGINEER-FPA, INTERNAL COMBUSTION ENGINE SUBASSEMBLER-BC Active Last Documented On 2 10:28AM ; [facility] Diabetes Mellitus Unknown AKIN Dumont VANE APR N-FPA, INTERNAL COMBUSTION ENGINE SUBASSEMBLER-BC Active Last Documented On 2 10:27AM ; [facility] Gout Unknown AKIN ELISELP AVAYA ENGINEER-FPA, INTERNAL COMBUSTION ENGINE SUBASSEMBLER-BC Active Last Documented On 2 10:56AM ; [facility] Essential Hypertension Unknown AKIN RAZA P AVAYA ENGINEER-FPA, INTERNAL COMBUSTION ENGINE SUBASSEMBLER-BC Active Last Documented On 2 10:55AM ; [facility] Obesity Morbid Unknown AKIN CIFUENTES AVAYA ENGINEER-F PA, INTERNAL COMBUSTION ENGINE SUBASSEMBLER-BC Active Last Documented On 2 10:28AM ; [facility] Plan of Treatment Pending Tests Order Diagnosis Results Due Ordering P rovider Lab Panel 6 w/ med match [id number] 07/14/23 AKIN CIFUENTES AVAYA ENGINEER- FPA, INTERNAL COMBUSTION ENGINE SUBASSEMBLER-BC Last Documented On 4 1:18PM ; [facility] Lab Buprenorphine with confirmation-[id number] 07/14/23 AKIN CIFUENTES AVAYA ENGINEER-FPA, INTERNAL COMBUSTION ENGINE SUBASSEMBLER-BC Last Documented On 4 1:18PM ; [facility] Therapy - Physical Therapy Physical Therapy Other spondylosis, lumbar region 08/29/23 AKIN ELISELP AVAYA ENGINEER-FPA, INTERNAL COMBUSTION ENGINE SUBASSEMBLER-BC Last Documented On 4 3:32PM ; [facility] Assessments Includes: Assessments from this encounter No Assessments Recorded Medical Equipment - Implanted Devices Includes: Current Devices No Medical Equipment Recorded Medications Includes: Medications discussed during this encounter and other current Medications Current Medications (continue as prescribed) Belbuca 150 MCG Buccal Film 10/03/2023 Provider: AKIN CIFUENTES AVAYA ENGINEER- FPRENITA HooksBC Diagnosis: Radiculopathy, l umbar region dissolve 1 film to inside of cheek every 12 hours, be sure to dissolve fully then rinse mouth after Last Documented On 4 10:22AM By AKIN CARTY ; [facility] DULoxetine HCl 60 MG Oral Capsule Delayed Release Particles 08/29/2023 Provider: AKIN CIFUENTES APRN- FPJessee INTERNAL COMBUSTION ENGINE SUBASSEMBLER-BC Diagnosis: Other spondylosi s, lumbar region TAKE 1 CAPSULE BY MOUTH ELIZABETH Y AT BEDTIME Last Documented On 4 2:56PM By AKIN CARTY ; [facility] Celecoxib 200 MG Oral Capsule 08/29/2023 Provider: MACHELLE BUSH Diagnosis: Other spondylosi s, lumbar region TAKE 1 CAPSULE BY MOUTH ELIZABETH Y WITH A MEAL Last Documented On 4 2:56PM By AKIN CARTY ; [facility] Methocarbamol 750 MG Oral Tablet 08/29/2023 Provider: MACHELLE ADAMS Diagnosis: Other spondylosi s, lumbar region One tablet three times a day Last Documented On 4 2:56PM By AKIN CARTY ; [facility] Narcan 4 MG/0.1ML Nasal Liquid 04/11/2023 Provider: MACHELLE ADAMS Diagnosis: 1 spray intranasally for suspected overdose Last Documented On 3 1:25PM By AKIN CARTY ; [facility] Ziprasidone HCl 40 MG Oral Capsule 11/01/2022 Provid er: Diagnosis: Last Documented On 3 3:28PM By Rebecca ALFREDO ; [facility] lamoTRIgine 100 MG Oral Tablet 08/18/2022 Provider: Diagnosis: Last Documented On 3 12:25PM By AKIN CARTY ; [facility] hydrOXYzine Pamoate 25 MG Oral Capsule 08/18/2022 Pr ovider: Diagnosis: Last Documented On 3 12:25PM By AKIN CARTY ; [facility] Losartan Potassium 50 MG Oral Tablet 07/14/2022 Prov ider: Diagnosis: Last Documented On 3 12:25PM By AKIN CARTY ; [facility] busPIRone HCl 30 MG Oral Tablet 06/07/2022 Provider: NICK HABIB Diagnosis: Last Documented On 3 12:25PM By AKIN CARTY ; [facility] Adult Aspirin Regimen 81 MG Oral Tablet Delayed Releas e 10/21/2021 Provider: Diagnosis: Last Documented On 2 10:31AM By AKIN CARTY ; [facility] metFORMIN HCl 500 MG Oral Tablet 10/06/2021 Provider : Diagnosis: Last Documented On 2 10:31AM By [facility] ; [facility] Gabapentin 300 MG Oral Capsule 10/06/2021 Provider: Diagnosis: Last Documented On 2 10:31AM By [facility]IN [facility]ES [facility] ; [facility] Anoro Ellipta 62.5-25 MCG/IN H Inhalation Aerosol Powder Breath Activated 10/06/2021 Provider: Diagnosis: One puff daily. Last Documented On 2 10:31AM By [facility] ; [facility] Carvedilol 6.25 MG Oral Tablet 09/30/2021 Provider: Diagnosis: Last Documented On 2 10:31AM By AKIN CIFUENTES INTERNAL COMBUSTION ENGINE SUBASSEMBLERJÚNIOR ; [facility] Furosemide 40 MG Oral Tablet 09/28/2021 Provider: Diagnosis: Last Documented On 2 10:31AM By AKIN CIFUENTES INTERNAL COMBUSTION ENGINE SUBASSEMBLERALYSHA ; [facility] buPROPion HCl ER (XL) 300 MG Oral Tablet Extended Release 24 Hour 09/18/2021 Provider: NICK NELSON Diagnosis: Last Documented On 2 10:31AM By AKIN CIFUENTES [facility] ; [facility] Ketoconazole 2% External Cream 09/16/2021 Provider: ADDISON DOBSON MD Diagnosis: Apply to affeted area twice a week. Last Documented On 2 10:31AM By AKIN CARTY ; [facility] Albuterol Sulfate (2.5 MG/3M L) 0.083% Inhalation Nebulization solution 09/09/2021 Provider: Diagnosis: Last Documented On 2 10:31AM By AKIN CARTY ; [facility] Potassium Chloride ER 10 MEQ Oral Tablet Extended Rele ase 09/01/2021 Provider: Diagnosis: Last Documented On 2 10:31AM By AKIN CIFUENTES [facility] ; [facility] Past Medications on file Losartan Potassium 25 MG Oral Tablet 03/17/2022 - 12/3 04/2021 Provider: Diagnosis: 2 tablets daily Last Documented On 2 8:33AM By AKIN CIFUENTES [facility] ; [facility] Medications Administered Includes: Administered Medications from this encounter No Administered Medications Recorded Results Includes: Results discussed during this encounter No Results Recorded For Specified Dates History of Present Illness Includes: History of Present Illness from this encounter No History of Present Illness Recorded Social History Description Last Updated Former smoker 10/21/2021 Last Documented On 4 11:09AM ; [facility] Difficulty walking 10/21/2021 Last Documented On 4 11:09AM ; [facility] No consumption of alcohol 10/21/2021 Last Documented On 4 11:09AM ; [facility] Not using drugs 10/21/2021 Last Documented On 4 11:09AM ; [facility] Smoking Status Unknown Procedures and Surgical History Surgical History Last Updated No Pacemaker 10/21/2021 Last Documented On 4 11:09AM ; [facility] Medical History Includes: Medical History addressed during this encounter Description Last Updated Has had a fall in the last 12 months. Last Documented On 4 11:09AM ; [facility] Has a fear of falling. 07/20/2022 Last Documented On 4 11:09AM ; [facility] Uses a cane for support Has motorized wh eelchair 11/30/2021 Last Documented On 4 11:09AM ; [facility] Currently wearing eyeglasses 10/21/2021 Last Documented On 4 11:09AM ; [facility] No Pain Pump 10/21/2021 Last Documented On 4 11:09AM ; [facility] No Spinal cord stimulator 10/21/2021 Last Documented On 4 11:09AM ; [facility] Family History Includes: Family History addressed during this encounter Description Last Updated Other family history , please specify: 0 10/21/2021 Last Documented On 4 11:09AM ; [facility] Review of Systems Includes: Review of [...] Active Last Documented On 4 2:38PM ; [facility] Encounters Encounter Provider Location Date Check-In Time Check-Out Time Diagnosis RX ISSUE/REFILL AKIN CIFUENTES APRN-DANNY, BROOKE-BC 09/29/2023 11:09AM 11:59PM Insurance Includes: Active Insurance Policies Plan Name Member ID Group # Subscriber Relationship Effect gael Dates 1 - [facility] PL[facility] [id number] [employer]AM[employer]KAMI SHEETS Renny Clinical Notes Includes: Clinical Notes from this encounter * Progress note Date Encounter Last Documented by 09/29/2023 RX ISSUE/REFILL Last documented on 10/03/2023; 10:16 AM, AKIN CIFUENTES APRN-DANNY, INTERNAL COMBUSTION ENGINE SUBASSEMBLER-BC; [facility] Active Problems & Conditions - [...] 06/30/23 ~ pt phone # for Return call:[phone] ~Last Drug Screen:06/30/23 ~Date/Initials: 09/29/23, KMS. Current [...]
--- OUTSIDE RECORDS SUMMARY | 2025-03-31 00:52 | XMS_ITS | Clinical Summary ---
Author Organization [facility] Address [address] [place] [address] Care Team Providers Care Warp Spinner Name Role Phone No, Pcp MANAGER FASHION Primary Care Provider Unavailabl e Social History Tobacco Use Types Packs/Day Years Used Date Smoking Tobacco: Never Assessed Sex and Gender Information Value Date Recorded Sex Assigned at Not on file Legal Sex Male 11:00 AM EST Gender Identity Not on file Sexual Orientation Not on file Plan of Treatment Not on file Medical Devices Not on file Care Teams Warp Spinner Relationship Specialty Start Date End Date No, Pcp, MANAGER FASHION N/A Do not use PCP - General Family Medicine 03/31/20
--- OUTSIDE RECORDS SUMMARY | 2025-03-31 00:52 | XMS_ITS | Clinical Summary ---
Author Organization [facility] Address [address] [place] [address] Phone Care Team Providers Care Sports Teacher Name Role Phone Marilee Vale MD Primary Care Provider [phone] Aravind Coelho MD Unavailable Allergies Active Allergy Reactions Criticality Noted Date Comments Dog Fennel Allergy Skin Test Rash,Itching Low 06/28 Cats Penicillins Hives,Rash,Itching High 06/28/2024 Medications fluticasone (FLONASE) 50 MCG/ACT Suspension 1 [place] by Nasal route daily. Use in each [...] mg by mouth daily. Active Glucose Blood (SynerZ Medicaluch Ultra Blue Test) Strip by In Vitro route. Use as directed Active triamcinolone (KENALOG) 0.1 % Cream Apply 2 times daily. Application Site: bottom of right foot twice daily (Description and Location) Active nystatin (MYCOSTATIN) 022924 UNIT/GM Cream Apply 3 times daily. Application Site: affected area (Description and Location) Active Glucagon (Gvoke HypoPen 2-Pack) 1 MG/0.2ML Solution Auto-injector by Subcutaneous route. Active Insulin Pen Needle (TRUEplus Pen [place]) 31G X 5 MM Misc by Does [...] 0.6 oz pur e alcohol) 2x year [facility] Utilities Answer Date Recorded In the past 12 months has th e [employer], gas, oil, or water [employer] threatened to shut off services in your [...] any time in the past 12 m [facility], were you homeless or living in a jail (including now)? No 08/28/2024 Sexually Active Control [...] Combined Completed 03/14/2022 Human Papillomavirus (HPV) Immunization (No Doses Required) Completed Meningococcal Immunization (ACWY) Aged Out No longer [...] MEDICAID [place] MEDICARE C HUMANA Care Teams Sports Teacher Relationship Specialty Start Date End Date Marilee Vale MD [address] [place] [address] PCP - General Family Medicine 11/06/23 Aravind Coelho MD [address] [address] Consulting Physician Endocrinology 06/28/24
--- OUTSIDE RECORDS SUMMARY | 2025-03-31 00:52 | XMS_ITS ---
Author Organization [facility] Address [address] [place] [address] Phone Care Team Providers Care Spring Repairer Helper Hand Name Role Phone Marilee Vale MD Primary Care Provider [phone] Aravind Coelho MD Unavailable [facility] Chronic Condition Monitoring Status:Enrolled (Active) Program category:Remote Patient Monitoring Start date:08/28/2024 Enrollment date:08/28/2024 Related social drivers of health:Intimate Partner Violence, Social Connections, Alcohol Use, Financial Resource Strain, Depression, Stress, Physical Activity, Food Insecurity, Transportation Needs, Housing Stability, Utilities Related service episodes:[facility] Service Episode (Enrolling) Continued Care and Services Coordination
--- OUTSIDE RECORDS SUMMARY | 2025-03-31 00:52 | XMS_ITS | Clinical Summary ---
Author Organization [facility] Address [address] [place] [address] Care Team Providers Care Pre Press Proofer Name Role Phone Felicia Ramos PA-C Primary Care Provider + Source Comments [facility],non-owned Affiliates and Associated Physician Practices is amultiple site organization consisting of ambulatory clinics and hospital sitesin [place], [place], [place] and [place]. This disclosure is being madepursuant to the Care Everywhere program and may not contain all information available regarding this patient. Last updated 18.[facility] Active Problems Problem Noted Date Diagnosed Date CHF (congestive heart failure) 01/06/2022 Overview (01/06/2022): p Social History Tobacco Use Types Packs/Day Years Used Date Smoking Tobacco: Never Assessed Sex and Gender Information Value Date Recorded Sex Assigned at Not on file Legal Sex Male 5:52 PM TEMPERING KILN TENDER Gender Identity Not on file Sexual Orientation [...] series) 1996 DEPRESSION SCREENING 04/17/2024 COVID-19 VACCINE ( - 2024-2 6 season) 2024 INFLUENZA VACCINE (#1) 2024 ZOSTER [...] complete this topic Insurance MEDICAID Care Teams Pre Press Proofer Relationship Specialty Start Date End Date Felicia Ramos PA-C [address] [place], [place] [id number] PCP - General 03/22/19
--- OUTSIDE RECORDS SUMMARY | 2025-03-31 00:52 | XMS_ITS | Clinical Summary ---
Author Organization [facility] [address] Address [address] [place] [address] Care Team Providers Care Lease Attendant Name Role Phone Unavailable Primary Care Provider Unavailabl e Medications aspirin (MICHELLE CHEWABLE) 81 mg Tablet, ChewableIndications :Hyperlipidemia, unspecified hyperlipidemia type Take 1 Tablet (81 mg) by mouth daily. 90 Tablet 4 Active atorvastatin (LIPITOR) 20 mg tabletIndications:T ype 2 diabetes mellitus with hyperglycemia, without long-term current use of insulin (CMS/HCC),Hyperlipi demia, unspecified hyperlipidemia type Take 1 Tablet [...] on file Legal Sex Male 12:59 PM SANE NURSE Gender Identity Not on file Sexual [...] years 2022 INFLUENZA VACCINE (#1) 2024 Insurance BLUE ACCESS/TRUE BLUE PPO
--- OUTSIDE RECORDS SUMMARY | 2025-03-31 00:52 | XMS_ITS ---
Care Plan - [facility] Created on: March 31, 2025 RAZA SHEETS : 1975 Sex: Male Author Organization [facility] Address [address] [place] [address] Phone Care Team Providers Care Long Goods Drier Name Role Phone AUNDREA OLGUIN, LI Unavailable [phone] YASH SALEH Primary Care Provider [phone] NICK NELSON Unavailable [phone] ANJEILCA CALDERON MD Unavailable [phone]
--- OUTSIDE RECORDS SUMMARY | 2025-03-31 00:52 | XMS_ITS | Clinical Summary ---
Author Organization [facility] Address [address] [place] [address] Phone Care Team Providers Care Therapeutic Dietitian Name Role Phone AUNDREA OLGUIN, LI Unavailable [phone] YASH SALEH Primary Care Provider [phone] NICK NELSON Unavailable [phone] ANJELICA CALDERON MD Unavailable [phone] Reason for Visit and Chief Complaint RX ISSUE/REFILL Problems Includes: Problems addressed during this encounter and other active Problems All Visits Onset Date Resolved Date Provider Condition S tatus Anxiety Disorder Nos Unknown AKIN Dumont VANE APPRAISAL TECHNICIAN-FPA, LAST PUTTER AWAY-BC Active Last Documented On 2 10:55AM ; [facility] Bipolar I Disorder Unknown AKIN Dmuont VANE AP RN-FPA, LA[employer] AWAY-BC Active Last Documented On 2 10:55AM ; [facility] Congestive Heart Failure Unknown AKIN Dumont K ULP APPRAISAL TECHNICIAN-FPA, LAST PUT[employer] AWAY-BC Active Last Documented On 2 10:27AM ; [facility] Fatty Liver Unknown AKIN Dumont VANE APPRAISAL TECHNICIAN-FPA, LAST PUTTER AWAY-BC Active Last Documented On 2 10:54AM ; [facility] Chronic Obstructive Pulmonar y Disease Unknown AKIN Dumont VANE APPRAISAL TECHNICIAN-FPA, LAST PUT[employer] AWAY-BC Active Last Documented On 2 10:28AM ; [facility] Diabetes Mellitus Unknown AKIN Dumont VANE APR N-FPA, LAST [employer] AWAY-BC Active Last Documented On 2 10:27AM ; [facility] Gout Unknown AKIN ELISELP APPRAISAL TECHNICIAN-FPA, LAST PUTTER AWAY-BC Active Last Documented On 2 10:56AM ; [facility] Essential Hypertension Unknown AKIN RAZA P APPRAISAL TECHNICIAN-FPA, LAST PUT[employer] AWAY-BC Active Last Documented On 2 10:55AM ; [facility] Obesity Morbid Unknown AKIN CIFUENTES APPRAISAL TECHNICIAN-F PA, LAST PUTTER AWAY-BC Active Last Documented On 2 10:28AM ; [facility] Plan of Treatment Pending Tests Order Diagnosis Results Due Ordering P rovider Lab Panel 6 w/ med match [id number] 07/14/23 AKIN CIFUENTES APPRAISAL TECHNICIAN- FPA, LAST PUTTER AWAY-BC Last Documented On 4 1:18PM ; [facility] Lab Buprenorphine with confirmation-[id number] 07/14/23 AKIN ELISELP APPRAISAL TECHNICIAN-FPA, LAST PUTTER AWAY-BC Last Documented On 4 1:18PM ; [facility] Therapy - Physical Therapy Physical Therapy Other spondylosis, lumbar region 08/29/23 AKIN ELISELP APPRAISAL TECHNICIAN-FPA, LAST PUTTER AWAY-BC Last Documented On 4 3:32PM ; [facility] Assessments Includes: Assessments from this encounter No Assessments Recorded Medical Equipment - Implanted Devices Includes: Current Devices No Medical Equipment Recorded Medications Includes: Medications discussed during this encounter and other current Medications Discontinued / Stopped on this date AKIN ELISELP APPRAISAL TECHNICIAN-FPA, LAST PUTTER AWAY-BC on 07/03/2023 Belbuca 150 MCG Buccal Film Provider: AKIN Julia VANE APPRAISAL TECHNICIAN- FPA, LAST PUTTER AWAY-BC Diagnosis: Radiculopathy, l umbar region Last Documented On 4 4:15PM By AKIN VANE LAST PUTTER AWAY-BC ; [facility] New / Renewed during this visit AKIN Dumont VANE APPRAISAL TECHNICIAN-FPA, LAST PUTTER AWAY-BC on 07/31/2023 Belbuca 150 MCG Buccal Film Provider: AKIN Julia VANE APPRAISAL TECHNICIAN- FPA, LAST PUTTER AWAY-BC 30 day supply: 60 film, 0 refills Diagnosis: Radiculopathy, lumbar region dissolve 1 film to inside of cheek every 12 hours, be sure to dissolve fully then rinse mouth after Pharmacy: [facility] - [address] , [facility], [phone] - Last Documented On 4 2:49PM By AKIN CARTY ; [facility] Current Medications (continue as prescribed) Belbuca 150 MCG Buccal Film 10/03/2023 Provider: MACHELLE BUSH Diagnosis: Radiculopathy, l umbar region dissolve 1 film to inside of cheek every 12 hours, be sure to dissolve fully then rinse mouth after Last Documented On 4 10:22AM By AKIN CARTY ; [facility] DULoxetine HCl 60 MG Oral Capsule Delayed Release Particles 08/29/2023 Provider: MACHELLE BUSH Diagnosis: Other spondylosi s, lumbar region TAKE 1 CAPSULE BY MOUTH ELIZABETH Y AT BEDTIME Last Documented On 4 2:56PM By AKIN CARTY ; [facility] Celecoxib 200 MG Oral Capsule 08/29/2023 Provider: MACHELLE BUSH Diagnosis: Other spondylosi s, lumbar region TAKE 1 CAPSULE BY MOUTH ELIZABETH Y WITH A MEAL Last Documented On 4 2:56PM By AKIN CARTY ; [facility] Methocarbamol 750 MG Oral Tablet 08/29/2023 Provider: MACHELLE ADAMS Diagnosis: Other spondylosi s, lumbar region One tablet three times a day Last Documented On 4 2:56PM By AKIN CARTY ; [facility] Narcan 4 MG/0.1ML Nasal Liquid 04/11/2023 Provider: MACHELLE ADAMS Diagnosis: 1 spray intranasally for suspected overdose Last Documented On 3 1:25PM By AKIN CARTY ; [facility] Ziprasidone HCl 40 MG Oral Capsule 11/01/2022 Provid er: Diagnosis: Last Documented On 3 3:28PM By Rebecca ALFREDO ; [facility] lamoTRIgine 100 MG Oral Tablet 08/18/2022 Provider: Diagnosis: Last Documented On 3 12:25PM By AKIN CIFUENTES [facility] ; [facility] hydrOXYzine Pamoate 25 MG Oral Capsule 08/18/2022 Pr ovider: Diagnosis: Last Documented On 3 12:25PM By AKIN CIFUENTES [facility] ; [facility] Losartan Potassium 50 MG Oral Tablet 07/14/2022 Prov ider: Diagnosis: Last Documented On 3 12:25PM By AKIN CIFUENTES [facility] ; [facility] busPIRone HCl 30 MG Oral Tablet 06/07/2022 Provider: ARIF HABIB Diagnosis: Last Documented On 3 12:25PM By AKIN CIFUENTES [facility] ; [facility] Adult Aspirin Regimen 81 MG Oral Tablet Delayed Releas e 10/21/2021 Provider: Diagnosis: Last Documented On 2 10:31AM By [facility] metFORMIN HCl 500 MG Oral Tablet 10/06/2021 Provider : Diagnosis: Last Documented On 2 10:31AM By [facility]IN [facility]ENTES [facility] ; [facility] Gabapentin 300 MG Oral Capsule 10/06/2021 Provider: Diagnosis: Last Documented On 2 10:31AM By AKIN CIFUENTES LAST PUTTER AWAYALYSHA ; [facility] Anoro Ellipta 62.5-25 MCG/IN H Inhalation Aerosol Powder Breath Activated 10/06/2021 Provider: Diagnosis: One puff daily. Last Documented On 2 10:31AM By AKIN HOGUEJÚNIOR ; [facility] Carvedilol 6.25 MG Oral Tablet 09/30/2021 Provider: Diagnosis: Last Documented On 2 10:31AM By AKNI [facility]IF[facility]ENTES [facility] ; [facility] Furosemide 40 MG Oral Tablet 09/28/2021 Provider: Diagnosis: Last Documented On 2 10:31AM By AKIN [facility]ENTES [facility] ; [facility] buPROPion HCl ER (XL) 300 MG Oral Tablet Extended Release 24 Hour 09/18/2021 Provider: ARIF HABIB Diagnosis: Last Documented On 2 10:31AM By AKIN COXJÚNIOR ; [facility] Ketoconazole 2% External Cream 09/16/2021 Provider: ADDISON DOBSON MD Diagnosis: Apply to affeted area twice a week. Last Documented On 2 10:31AM By AKIN CARTY ; [facility] Albuterol Sulfate (2.5 MG/3M L) 0.083% Inhalation Nebulization solution 09/09/2021 Provider: Diagnosis: Last Documented On 2 10:31AM By AKIN CARTY ; [facility] Potassium Chloride ER 10 MEQ Oral Tablet Extended Rele ase 09/01/2021 Provider: Diagnosis: Last Documented On 2 10:31AM By AKIN CARTY ; [facility] Past Medications on file Losartan Potassium 25 MG Oral Tablet 03/17/2022 - 03/19 Provider: Diagnosis: 2 tablets daily Last Documented On 2 8:33AM By AKIN CARTY ; [facility] Medications Administered Includes: Administered Medications from this encounter No Administered Medications Recorded Results Includes: Results discussed during this encounter No Results Recorded For Specified Dates History of Present Illness Includes: History of Present Illness from this encounter No History of Present Illness Recorded Social History Description Last Updated Former smoker 10/21/2021 Last Documented On 4 11:17AM ; [facility] Difficulty walking 10/21/2021 Last Documented On 4 11:17AM ; [facility] No consumption of alcohol 10/21/2021 Last Documented On 4 11:17AM ; [facility] Not using drugs 10/21/2021 Last Documented On 4 11:17AM ; [facility] Smoking Status Unknown Procedures and Surgical History Surgical History Last Updated No Pacemaker 10/21/2021 Last Documented On 4 11:17AM ; [facility] Medical History Includes: Medical History addressed during this encounter Description Last Updated Has had a fall in the last 12 months. Last Documented On 4 11:17AM ; [facility] Has a fear of falling. 07/20/2022 Last Documented On 4 11:17AM ; [facility] Uses a cane for support Has motorized pauline mathisr 11/30/2021 Last Documented On 4 11:17AM ; [facility] Currently wearing eyeglasses 10/21/2021 Last Documented On 4 11:17AM ; [facility] No Pain Pump 10/21/2021 Last Documented On 4 11:17AM ; [facility] No Spinal cord stimulator 10/21/2021 Last Documented On 4 11:17AM ; [facility] Family History Includes: Family History addressed during this encounter Description Last Updated Other family history , please specify: 0 10/21/2021 Last Documented On 4 11:17AM ; [facility] Review of Systems Includes: Review of [...] Active Last Documented On 4 2:38PM ; [facility] Encounters Encounter Provider Location Date Check-In Time Check-Out Time Diagnosis RX ISSUE/REFILL AKIN CIFUENTES APRN-FPJessee, LAST PUTTER AWAY-BC 07/31/2023 11:17AM 11:59PM Insurance Includes: Active Insurance Policies Plan Name Member ID Group # Subscriber Relationship Effect gael Dates 1 - [facility] [id number] RAZA Lawson Clinical Notes Includes: Clinical Notes from this encounter * Progress note Date Encounter Last Documented by 07/31/2023 RX ISSUE/REFILL Last documented on 07/31/2023; 4:15 PM, AKIN CIFUENTES APPRAISAL TECHNICIAN-FPA, LAST PUTTER AWAY-BC; [facility] Active Problems & Conditions - Anxiety Disorder [...] Drug Screen:06/30/2023 Anay is pulling results from [facility]. ~Date/Initials:07/31/2023 SOFTWARE QUALITY TESTER. Current Medication - Adult Aspirin Regimen 81 [...]
--- OUTSIDE RECORDS SUMMARY | 2025-03-31 00:53 | XMS_ITS | Patient Health Record ---
Author Organization [facility] Address [address] [place] [address] Phone [phone] Care Team Providers Care Construction Project Engineer Name Role Phone Megan OLGUIN, Ray Primary Care Provider [phone] Allergies Allergen (clinical drug ingredient) Drug/Non Drug Allergy documented on EMR Reaction Allergy Type Onset Date Status Penicillin Unknown Drug Allergy Active Reason For Referral No Information Medications Medication SIG (Take, Route, Frequency, Duration) Notes Start Date End Date Diagnosis (ICD Code) Status Furosemide 40 MG Tablet 1 tablet Orally Once a day; Duration: 30 day(s) Active Carvedilol 12.5 MG Tablet 1 tablet with food Orally Twice a day; Duration: 30 day(s) Active Losartan Potassium 25 MG Tablet 1 tablet Orally Once a day; Duration: 30 day(s) Active busPIRone HCl 30 MG Tablet 1 tablet Orally Twice a day; Duration: 30 days Major depression (ICD_10 - F32.9) Active Depakote ER 500 MG Tablet Extended Release 24 Hour 1 tablet Orally Once a day; Duration: 30 day(s) Major depression (ICD_10 - F32.9) Active buPROPion HCl ER (XL) 300 MG Tablet Extended Release 24 Hour 1 tablet in the morning Orally Once a day; Duration: 30 days Major depression (ICD_10 - F32.9) Active traZODone HCl 50 MG Tablet 1 tablet at bedtime as needed Orally Once a day; Duration: 30 days Major depression (ICD_10 - F32.9) Active Albuterol Sulfate HFA 108 (90 Base) MCG/ACT Aerosol Solution 1 puff as needed Inhalation every 4 hrs Active metOLazone 10 MG Tablet 1 tablet Orally Once a day; Duration: 30 day(s) Not-Taking metFORMIN HCl 500 MG Tablet 1 tablet with a meal Orally three times daily Active Jardiance Active Xtampza ER 9 MG Capsule ER 12 Hour Abuse-Deterrent 1 tablet Orally twice a day Active BuSpar 10 MG Tablet 1 tablet Orally Twice a day Not-Taking Social History Sex Observation Social History Observation Description Sex Observation Male Sexual Orientation Social History Observation Description Sexual Orientation Straight or heterose xual Gender Identity Social History Observation Description Gender Identity Male Social History Primary Social History Social Info Question Answer Notes Living Arrangement Living Arrangement: Independent Roseanna ing Is this a supportive environment? Yes Tobacco Use - do not use Tobacco Use: Status Reviewed with Patient Tobacco Use Status Reviewed on: 04/30/2021 Employment Status Employment Status: Unemployed Illicit Substance Usage Illicit Substance Usage: No Alcohol Use Alcohol Use Frequency: Never Problems Problem Type SNOMED Code ICD Code Dates Problem Status W/U Status Risk Notes Problem Major depression (797973236) Major depression (F32.9) Added On: 022 Active confirmed Plan Of Treatment No Information Insurance Providers Payer Name Payer Address Payer Phone Subscriber Number Group Number Insured Name Patient Relationship to Insured Coverage Start Date Coverage End Date [facility] Plan [address] [place] [address] [id number] 2 Jerzy Rizvi Self - patient is the insured 1 [facility] [address] [place] [address] [id number] 2 Jerzy Rizvi Self - patient is the insured 1 Medical (General) History Medical History History ICD Code CHF Diabetes COPD Asthma Chronic Back pain Surgical History Surgery Date(Month/Year) Tonsilectomy Hernia repair Cardiac Cath Injections in back Hospitalization History Reason Date(Month/Year) Urgent care [facility] for left ear in fection 06/06/2022 [facility] for breathing issues Feb 2022 [facility] left leg swollen and infected. Jan 2022 COVID 10/2021 [facility] for gout in rig ht foot May 2021 [facility] Feb 2021
--- OUTSIDE RECORDS SUMMARY | 2025-03-31 00:53 | XMS_ITS | Clinical Summary ---
Author Organization [facility] Address [address] [place] [address] Phone Care Team Providers Care Custody Officer Name Role Phone AUNDREA OLGUIN, LI Unavailable [phone] YASH SALEH Primary Care Provider [phone] NICK NELSON Unavailable [phone] ANJELICA CALDERON MD Unavailable [phone] Reason for Visit and Chief Complaint * PHONE CALL Problems Includes: Problems addressed during this encounter and other active Problems All Visits Onset Date Resolved Date Provider Condition S tatus Anxiety Disorder Nos Unknown AKIN Dumont VANE PATIENT SAFETY MANAGER-FPA, DIRECTOR-BC Active Last Documented On 2 10:55AM ; [facility] Bipolar I Disorder Unknown AKIN Dumont VANE AP RN-FPA, DIRECTOR-BC Active Last Documented On 2 10:55AM ; [facility] Congestive Heart Failure Unknown AKIN Dumont K ULP PATIENT SAFETY MANAGER-FPA, DIRECTOR-BC Active Last Documented On 2 10:27AM ; [facility] Fatty Liver Unknown AIKN Dumont VANE PATIENT SAFETY MANAGER-FPA, DIRECTOR-BC Active Last Documented On 2 10:54AM ; [facility] Chronic Obstructive Pulmonar y Disease Unknown AKIN Dumont VANE PATIENT SAFETY MANAGER-FPA, DIRECTOR-BC Active Last Documented On 2 10:28AM ; [facility] Diabetes Mellitus Unknown AKIN Dumont VANE APR N-FPA, DIRECTOR-BC Active Last Documented On 2 10:27AM ; [facility] Gout Unknown AKIN CIFUENTES PATIENT SAFETY MANAGER-FPA, DIRECTOR-BC Active Last Documented On 2 10:56AM ; [facility] Essential Hypertension Unknown AKIN RAZA P PATIENT SAFETY MANAGER-FPA, DIRECTOR-BC Active Last Documented On 2 10:55AM ; [facility] Obesity Morbid Unknown AKIN CIFUENTES PATIENT SAFETY MANAGER-F PA, DIRECTOR-BC Active Last Documented On 2 10:28AM ; [facility] Plan of Treatment Pending Tests Order Diagnosis Results Due Ordering P rovider Lab Panel 6 w/ med match [id number] 07/14/23 AKIN ELISELP PATIENT SAFETY MANAGER- FPA, DIRECTOR-BC Last Documented On 4 1:18PM ; [facility] Lab Buprenorphine with confirmation-[id number] 07/14/23 AKIN CIFUENTES PATIENT SAFETY MANAGER-FPA, DIRECTOR-BC Last Documented On 4 1:18PM ; [facility] Therapy - Physical Therapy Physical Therapy Other spondylosis, lumbar region 08/29/23 AKIN CIFUENTES PATIENT SAFETY MANAGER-FPA, DIRECTOR-BC Last Documented On 4 3:32PM ; [facility] Assessments Includes: Assessments from this encounter Findings - [M54.6 - Pain in thoracic spine] Pain in thoracic spine - Last Documented On 09/26/2023 10:29AM ; [facility] 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 [...] - Last Documented On 09/26/2023 10:29AM ; [facility] Medical Equipment - Implanted Devices Includes: Current [...] On 4 10:22AM By AKIN CARTY ; [facility] DULoxetine HCl 60 MG Oral Capsule Delayed Release Particles 08/29/2023 Provider: MACHELLE BUSH Diagnosis: Other spondylosi s, lumbar region TAKE 1 CAPSULE BY MOUTH ELIZABETH Y AT BEDTIME Last Documented On 4 2:56PM By AKIN CARTY ; [facility] Celecoxib 200 MG Oral Capsule 08/29/2023 Provider: MACHELLE BUSH Diagnosis: Other spondylosi s, lumbar region TAKE 1 CAPSULE BY MOUTH ELIZABETH Y WITH A MEAL Last Documented On 4 2:56PM By AKIN CARTY ; [facility] Methocarbamol 750 MG Oral Tablet 08/29/2023 Provider: MACHELLE ADAMS Diagnosis: Other spondylosi s, lumbar region One tablet three times a day Last Documented On 4 2:56PM By AKIN CARTY ; [facility] Narcan 4 MG/0.1ML Nasal Liquid 04/11/2023 Provider: MACHELLE ADAMS Diagnosis: 1 spray intranasally for suspected overdose Last Documented On 3 1:25PM By AKIN CARTY ; [facility] Ziprasidone HCl 40 MG Oral Capsule 11/01/2022 Provid er: Diagnosis: Last Documented On 3 3:28PM By Rebecca ALFREDO ; [facility] lamoTRIgine 100 MG Oral Tablet 08/18/2022 Provider: Diagnosis: Last Documented On 3 12:25PM By AKIN CARTY ; [facility] hydrOXYzine Pamoate 25 MG Oral Capsule 08/18/2022 Pr ovider: Diagnosis: Last Documented On 3 12:25PM By AKIN CARTY ; [facility] Losartan Potassium 50 MG Oral Tablet 07/14/2022 Prov ider: Diagnosis: Last Documented On 3 12:25PM By AKIN VANE [facility] ; [facility] busPIRone HCl 30 MG Oral Tablet 06/07/2022 Provider: ARIF HABIB Diagnosis: Last Documented On 3 12:25PM By AKIN VANE [facility] ; [facility] Adult Aspirin Regimen 81 MG Oral Tablet Delayed Releas e 10/21/2021 Provider: Diagnosis: Last Documented On 2 10:31AM By AKIN VANE [facility] ; [facility] metFORMIN HCl 500 MG Oral Tablet 10/06/2021 Provider : Diagnosis: Last Documented On 2 10:31AM By AKIN [facility] ; [facility] Gabapentin 300 MG Oral Capsule 10/06/2021 Provider: Diagnosis: Last Documented On 2 10:31AM By AKIN VANE [facility] ; [facility] Anoro Ellipta 62.5-25 MCG/IN H Inhalation Aerosol Powder Breath Activated 10/06/2021 Provider: Diagnosis: One puff daily. Last Documented On 2 10:31AM By AKIN VANE [facility] ; [facility] Carvedilol 6.25 MG Oral Tablet 09/30/2021 Provider: Diagnosis: Last Documented On 2 10:31AM By AKIN CIFUENTES [facility] ; [facility] Furosemide 40 MG Oral Tablet 09/28/2021 Provider: Diagnosis: Last Documented On 2 10:31AM By AKIN CIFUENTES [facility] ; [facility] buPROPion HCl ER (XL) 300 MG Oral Tablet Extended Release 24 Hour 09/18/2021 Provider: ARIF HABIB Diagnosis: Last Documented On 2 10:31AM By AKIN VANE [facility] ; [facility] Ketoconazole 2% External Cream 09/16/2021 Provider: ADDISON DOBSON MD Diagnosis: Apply to affeted area twice a week. Last Documented On 2 10:31AM By AKIN CIFUENTES [facility] ; [facility] Albuterol Sulfate (2.5 MG/3M L) 0.083% Inhalation Nebulization solution 09/09/2021 Provider: Diagnosis: Last Documented On 2 10:31AM By AKIN CARTY ; [facility] Potassium Chloride ER 10 MEQ Oral Tablet Extended Rele ase 09/01/2021 Provider: Diagnosis: Last Documented On 2 10:31AM By AKIN CARTY ; [facility] Past Medications on file Losartan Potassium 25 MG Oral Tablet 03/17/2022 - 03/19 Provider: Diagnosis: 2 tablets daily Last Documented On 2 8:33AM By AKIN CARTY ; [facility] Medications Administered Includes: Administered Medications from this encounter No Administered Medications Recorded Results Includes: Results discussed during this encounter No Results Recorded For Specified Dates History of Present Illness Includes: History of Present Illness from this encounter No History of Present Illness Recorded Social History Description Last Updated Former smoker 10/21/2021 Last Documented On 4 10:16AM ; [facility] Difficulty walking 10/21/2021 Last Documented On 4 10:16AM ; [facility] No consumption of alcohol 10/21/2021 Last Documented On 4 10:16AM ; [facility] Not using drugs 10/21/2021 Last Documented On 4 10:16AM ; [facility] Smoking Status Unknown Procedures and Surgical History Surgical History Last Updated No Pacemaker 10/21/2021 Last Documented On 4 10:16AM ; [facility] Medical History Includes: Medical History addressed during this encounter Description Last Updated Has had a fall in the last 12 months. Last Documented On 4 10:16AM ; [facility] Has a fear of falling. 07/20/2022 Last Documented On 4 10:16AM ; [facility] Uses a cane for support Has motorized wh eelchair 11/30/2021 Last Documented On 4 10:16AM ; [facility] Currently wearing eyeglasses 10/21/2021 Last Documented On 4 10:16AM ; [facility] No Pain Pump 10/21/2021 Last Documented On 4 10:16AM ; [facility] No Spinal cord stimulator 10/21/2021 Last Documented On 4 10:16AM ; [facility] Family History Includes: Family History addressed during this encounter Description Last Updated Other family history , please specify: 0 10/21/2021 Last Documented On 4 10:16AM ; [facility] Review of Systems Includes: Review of Systems [...] Active Last Documented On 4 2:38PM ; [facility] Encounters Encounter Provider Location Date Check-In Time Check-Out Time Diagnosis * PHONE CALL AKIN BANDA, MACHELLE 4 10:16AM 11:59PM Dorsopathy Dorsalgia Pain in Thoracic Spine Insurance Includes: Active Insurance Policies Plan Name Member ID Group # Subscriber Relationship Effect gael Dates 1 - [facility] PL[facility] [id number] RAZA Lawson Clinical Notes Includes: Clinical Notes from this encounter * Progress note Date Encounter Last Documented by 09/26/2023 * PHONE CALL Last documented on 10/02/2023; 2:42 PM, AKNI CIFUENTES APRN-DANNY, BROOKE-JÚNIOR; [facility] Active Problems & Conditions - Anxiety Disorder Nos - Bipolar I Disorder - Chronic Obstructive Pulmonary Disease - Congestive Heart Failure - Diabetes Mellitus - Essential Hypertension - Fatty Liver - Gout - Obesity Morbid Chief Complaint Phone Call - Chief Concern: reason for call: Patient needs MRIi order sent to [facility] in [place] [address], [place] [address] pt phone # for return call: date/initials: 09/26/2023 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 Current Medication - Adult Aspirin Regimen 81 [...] Thoracic w/o contrast Instructions: [facility] [address], [place] [address] EndCited Care Team - ANJELICA CALDERON MD - Cardiovascular Disease - LI GUILLAUME MD - Pulmonary Disease - JAMILAH ZAPIEN - Primary Care - NICK NELSON - Psychiatric/Mental Health Health Reminders - Assess Tobacco Use satisfied 09/26/2023.
--- OUTSIDE RECORDS SUMMARY | 2025-03-31 00:53 | XMS_ITS | Continuity of Care Document ---
Author Organization [place] - [facility], [facility] [place] Address [address] [place] [address] Assessment Encounter Date Assessment Date Assessment LastModified by Organization Details LastModified Time 02/20/2025 02/20/2025 Assessment: Ex nicotine smoke: 1.5 ppd 9832-3340 = 30 years = 42 pack years [...] further management. Follow-up: 1 year, February 2026 [facility] Not available 02/20/2025 17:32:38 Plan of Treatment Reminders Order Date Submit Date Provider Last Modified By Organization Details Last Modified Time Details Appointments Any 30 2025 02:00P Milton Jacinto MD Not available Not available Not available Lab None recorded. Referral None recorded. Procedures None recorded. Surgeries None recorded. Imaging None recorded. Medication Orders albuterol sulfate HFA 90 mcg/actua tion aerosol inhaler 2024 [id number], [address], [place], [place], [id number], 02/20/2025 15:36:42 Trelegy Ellipta 200 mcg-62.5 mcg-25 mcg powder for inhalatio n 2024 025 [facility][id number], [address], [place], [place], [id number], 02/20/2025 15:40:22 azelastin e 137 mcg (0.1 %) nasal spray 2024 025 [id number], [address], [place], [place], [id number], 02/20/2025 15:36:45 fluticaso ne propionat e 50 mcg/actua tion nasal spray,misa pension 2024 025 [facility][id number], [address], [place], [place], [id number], 02/20/2025 15:36:44 Patient TargetsNo targets recorded. Patient Instructions Encounter Date Encounter Id Patient Instructions Last Modified By Organization Details Last Modified Time 02/20/2025 [id number] complete PFT w/ post bronchodilator spirometry* - Please call patient to schedule. NPAN [id number] per payor website. Not available 02/20/2025 15:36:34 Reason for Referral None Reported. Results Created Date Observation Date Name Description Value Unit Range Abnormal Flag Note LastModifiedBy Organization Detail LastModifiedTime 02/21/2002/19/2025 compl ete PFT w/ post [facility] hodil ator alma metry * No observ ation record ed. [facility] ([facility]) [address] [place], [address], 02/20/2025 09:22:05 Result Notes None recorded. Problems Name Problem SNOMED Code Status Onset Date Resolution Date Notes Provider Name and Address Organization Details Recorded Time Morbid obesity 510011893 Active 2020 Louie Jacinto MD [address], [place], [address], [employer] 07:37:23 Osteoarthri tis of right knee joint 9302520775797 00 Active 2020 Louie Jacinto MD [address], [place], [address], [employer] 07:37:21 Plantar fasciitis of right foot 6416221082018 9101 Active 2021 Louie Jacinto MD [address], [place], [address], [facility] [place] [facility] 07:37:18 Diabetes mellitus 44459178 Active 2021 Louie Jacinto MD [address], [place], [address], [facility] [place] [facility] 07:37:33 Gout 48065572 Active 2021 Louie Jacinto MD [address], [place], [address], [facility] [place] [facility] 07:37:31 Peroneal tendinitis of right lower limb 2931155527223 09 Active 2021 Louie Jacinto MD [address], [place], [address], [facility] [place] [facility] 07:37:20 Posterior rhinorrhea 78747520 Active 2022 Louie Jacinto MD [address], [place], [address], [employer] [place] [employer] [facility] 07:37:17 Tinea pedis 3759542 Active 2022 Louie Jacinto MD [address], [place], [address], [employer] [facility] [employer] [facility] 07:37:26 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 07:37:34 Notes:Medical History: Bipol ar depression/Anxiety Bilateral hearing loss COVID infections 03/2020, 10/2021 Rhinitis with postnasal drip to multiple environmental allergens IgE 825 IU/mL Eosinophils 160/uL AAT PiMM 155 mg% Mild ACO Granulomatous lung disease Obesity with MORGAN and mild restrictive airflow impairment on AVAPS for chronic hypercarbic respiratory failure c/o [facility] Severe LVE Mild LAE Mild MR/WA/TR PASP 37 mmHg Hypertension EF 50% Hyperlipidemia [...] Matrixectomy-Righ t completed Jorge Cohen DPM [address], [place], [address], [employer] 12/10/2024 12:40:53 10/04/19 25 Nail Debridement completed Jorge Cohen DPM [address], [place], [address], [employer] 10/03/2024 11:27:04 09/11/19 25 Nail Debridement completed Jorge Cohen DPM [address], [place], [address], [facility] [employer] 09/10/2024 14:13:46 08/30/19 25 Abscess Drainage completed Jorge Cohen DPM [address], [place], [address], [facility] 08/29/2024 16:35:29 01/16/20 24 Nail Debridement completed Jorge Cohen DPM [address], [place], [address], [place] - [facility] 01/16/2024 13:39:40 Tonsillectomy completed Not Available [facility] 06/15/2022 19:28:19 Hernia Repair completed Not Available [facility] 06/15/2022 19:28:19 Cardiac Cath completed Not Available [facility] 06/15/2022 19:28:19 Cardiac Cath completed Not Available [facility] 06/15/2022 19:28:19 Imaging Results None recorded. Procedure Notes None recorded. Medical Equipment None Reported. Allergies Allergen ID Allergen Name Allergen Category Reaction Reaction Severity Criticality Documentation Date Start Date Code Code System Note Provider Name and Address Organization Details Recorded Time 40935 Product containin g penicilli n (product) medicatio n Not available Not available Not available 06/15/2022 90845 8001 SNOMED Not Available [facility] 19:30:00 02866 dogfennel pollen extract medicatio n itching rash Not available Not available low 03/17/20252024 95293 8 RxNorm Cats Not Available [place] - External Data Service - prod 12:22:59 [...] azelastine 137 mcg (0.1 %) nasal spray [place] 2 sprays twice a day by intranasa [...] Available Droplet Pen Needle 31 gauge x 5/16 USE DIRECTED 02/11 completed Not Available Not [...] Not Available Not Available Vitals Date Recorded Heart rate Respiratory rate Provider N patience and Address Organization Details Last Updated DateTime 02/20/2025 86 /min 15 /min Louie Jacinto MD [address] [facility] [address], [place], [address], [facility] 02/20/2025 15:42:07 Date Recorded Body height Body mass index (BMI) Body weight Body temperature Heart rate Oxygen saturation Systolic And Diastolic Provider Name and Address Organization Details Last Updated DateTime 182.88 cm 55.3 kg/m2 125621. 69 g 97.7 [degF] 86 /min 94 % 128/86 mm[Hg] Cleo De Los Santos MA [facility] 15:03:07 Social History Question Answer Notes LastModified by Organizat ion Details LastModified Time Tobacco Smoking Status Former Smoker Cleo De Los Santos MA null, [facility] 09/07/2022 12:01:34 What Is Your Level Of Caffeine Consumption? Heavy Information not available 05/25/2023 In The 14 Days Before Symptom Onset, Have You Had Close Contact With A Laboratory-confir med COVID-19 While That Case Was Ill? No MIGRATION.35289 [id number] Information not available 06/15/2022 In The 14 Days Before Symptom Onset, Have You Had Close Contact With A Person Who Is Under Investigation For COVID-19 While That Person Was Ill? No MIGRATION.81308 56872 Information not available 06/15/2022 What Type Of Diet Are You Following? DIABETIC Low Sodium/diab etic/gout Diet MIGRATION.51635 77199 Information not available 06/15/2022 Do You Have An Electrostatic Air Filter? No MIGRATION.96487 21577 Information not available 06/15/2022 When Did You Quit Smoking? 1-5yearssinc elastcigaret te Information not available 05/25/2023 Are There Any Guns Present In Your Home? No MIGRATION.01511 68038 Information not available 06/15/2022 Do You Have A Humidifier? Yes MIGRATION.05078 73370 Information not available 06/15/2022 Where Do You Live? [place] MIGRATION.27684 00803 Information not available 06/15/2022 Do You Have Moisture Problems In Your Home? No MIGRATION.73941 88940 Information not available 06/15/2022 What Was The Date Of Your Most Recent Tobacco Screening? 02/20/2025 Information not available 02/20/2025 Have You Ever Been Counseled For Unhealthy Alcohol Use? No MIGRATION.20649 95494 Information not available 06/15/2022 Do You Have Any Pets? Yes MIGRATION.21774 56722 Information not available 06/15/2022 Do You Use Your Seat Belt Or Car Seat Routinely? Yes Information not available 09/07/2022 Do You Have Smoke And Carbon Monoxide Detectors In Your Home? Yes MIGRATION.25557 48409 Information not available 06/15/2022 At What Age Did You Start Smoking Tobacco? 14 Information not available 05/25/2023 Are You Passively Exposed To Smoke? Yes Outside MIGRATION.97050 12100 Information not available 06/15/2022 Do You Use Sunscreen Routinely? No MIGRATION.09344 37251 Information not available 06/15/2022 Has Tobacco Cessation Counseling Been Provided? No MIGRATION.12039 63660 Information not available 06/15/2022 How Many Years Have You Smoked Tobacco? 20 Information not available 05/25/2023 Have You Recently Traveled Abroad? No MIGRATION.25363 44724 Information not available 06/15/2022 Do You Have Any Dietary Restrictions? No MIGRATION.99689 99832 Information not available 06/15/2022 Sex: Unknown Functional Status Question Answer Note LastModified by Organizat ion Details LastModified Time Do you use any illicit or recreational drugs? No MIGRATION.322639 4518 Information not available 06/15/2022 Do you or have you ever used any other forms of tobacco or nicotine? No MIGRATION.730920 3244 Information not available 06/15/2022 What is your level of alcohol consumption? Occasional MIGRATION.967596 5700 Information not available 06/15/2022 Have you been exposed to chemicals or toxins? not that aware of Information not available 05/25/2023 Mental Status Question Answer Note LastModified by Organization D etails LastModified Time Do you feel stressed (tense, restless, nervous, or anxious, or unable to sleep at night)? [id number] haritha Information not available 05/25/2023 Family History Relationship Description Onset Age of this Age Resolved Age Notes LastModified by Organization Details LastModified Time Father Heart disease MIGRATION.719 [id number] Not available 06/15/2022 19:28:20 Father Hypertensive disorder MIGRATION.820 [id number] Not available 06/15/2022 19:28:20 Father Diabetes mellitus MIGRATION.449 [id number] Not available 06/15/2022 19:28:20 Father Arthritis MIGRATION.725 [id number] Not available 06/15/2022 19:28:20 Father Coronary artery bypass graft MIGRATION.939 [id number] Not available 06/15/2022 19:28:20 Brother Diabetes mellitus MIGRATION.461 0629127 Not available 06/15/2022 19:28:20 Medical History Condition Response LUNG DISEASE/DISORDER Y COPD Y DEPRESSION (INCLUDING POST ) Y BACK / NECK PROBLEMS Y OBESITY Y USE OF BLOOD THINNERS Y DIABETES, TYPE Y SKIN PROBLEMS Y ASTHMA Y GOUT Y HEADACHES/MIGRAINES Y HEART DISEASE/HEART PROBLEMS Y Past Encounters Encounter ID Performer Location Encounter Start Date Encounter Closed Date Diagnosis/Indication Diagnosis SNOMED-CT Code Diagnosis ICD10 Code Diagnosis IMO Codes Diagnosis Note [id number] Louie Jacinto MD [facility] [address] [address] 02/20/2025 14:31:59 02/21/2025 16:19:34 Asthma-chronic obstructive pulmonary disease overlap syndrome 8946272303 4990205 J44.9 Posterior rhinorrhea 758 40257 R09.82 Health Concerns Section Related Observation LastModified by Organization Detai ls LastModified Time None Recorded Concern Status LastModified by Organization Details LastModified Time None Recorded Payers Encounter Date Sequence Insurance Name Policy Number Policy Tesfaye Covered Member ID Tesfaye Member ID Guarantor Name 02/20/2025 2 MEDICAID-[place]: [place] [employer] Kane Leahy [id number] Jerzy Leahy 02/20/2025 1 [employer] (MEDICARE REPLACEMENT/ ADVANTAGE - PPO) [id number] Jerzy Leahy [id number] Jerzy Leahy Notes Date Note Type Note Provider Name and Address Organization Details Recorded Time text/html Primary care/Referring provider: JAMILAH Briseno-CPatient is here to go over his asthma management.Initial development of shortness of breath: 1986Duration of shortness of breath: 35 yearsCondition of shortness of breath: stableTiming of shortness of breath: morningFrequency: every hourLimits activities: yesAggravating factors: walking, showering, dressingAlleviating factors: restModified [employer] [place] (mMRC) Dyspnea Scale - Grade 2Grade 0 [...] noHeartburn: noEdema: yesEnvironmental exposures:Nicotine smoke: 1.5 ppd 3448-9853 = 30 years = 42 pack yearsPaint: [...] moderate chance of dozing. Louie Jacinto MD [address] [place] [address], [place] [address], [place], [address], [place] [facility] 02/20/2025 17:32:58
--- NOTE | 2025-03-31 08:55 | WPDHPUPDATE1 ---
History and Physical Update Update Date/Time: 03/31/25 08:55 History and Physical has been reviewed, including an updated exam of the patient. There are NO changes in the patient's condition. Risks, benefits, and alternatives have been discussed and questions answered. Patient agrees to proceed with procedure.
--- NOTE | 2025-03-31 11:09 | P.OP_ITS ---
Procedure Note - Detailed Date of Procedure 03/31/25 Pre-op Diagnosis spondylosis lumbosacral region, chronic low back pain Post-op Diagnosis Same Procedure Performed Thermal Radiofrequency Ablation of the bilateral Lumbar Medial Branches[/Dorsal Ramus] at the [L3, L4, L5] Levels Treating the bilateral [L4-5, L5-S1] Facet Joints Under Fluoroscopic Guidance (4 Levels Treated). Surgeon Dennis Suh MD Referral Coordinator None. Anesthesia Local (w/ MAC) Description of Procedure INFORMED CONSENT: Risks, benefits and alternatives to the procedure were discussed in detail with the patient who expressed explicit understanding and consent to proceed. Patient was informed verbally and in written form regarding the risks associated with the procedure including the low risk of serious infection, bleeding/bruising, allergic reaction, nerve or organ injury, paralysis, procedural site pain or discomfort, worsening pain and/or mobility, failure to treat and/or disfigurement. The patient expressed explicit understanding and consent to proceed. All materials required for the procedure were available prior to procedure start. Site and side were marked prior to procedure and confirmed in the presence of the patient. PROCEDURE IN DETAIL: The patient was brought to the procedural suite and placed in the prone position. Patient was made comfortable with use of pillows under the head/chest, hips and ankles. ASA standard monitors were applied and used th roughout the procedure. Skin overlying the injection site on the affected side(s) was prepared broadly with ChloraPrep applicator and draped in a sterile manner. Aseptic technique was used throughout. The endplates of the vertebral bodies at the site(s) of interest were aligned in the AP view. Ipsilateral oblique angulation was utilized to optimize visualization of the intersection between the superior articulating process and transverse process at each target site. Local anesthesia was established by infiltration with approximately 5 mL of 1% lidocaine via a 1-1/2 inch 27-gauge needle divided over each site treated. A 16-gauge 150 mm [employer] RF needle with curved 10mm active tip was advanced in the AP view until the needle tip contacted the periosteum at the target site, the right L3 medial branch. Lateral view was utilized to adjust and confirm the appropriate placement of the needle tip just anterior to the facet line, superior to the pedicle and posterior to the foramen. Grounding electrode was in place and functioning. The appropriately-sized RF cannula was inserted into the RF needle and motor stimulation was performed with no subjective or objective evidence of recruited muscle activity with stimulation up to 2.0 volts at a frequency of 2Hz. 1.5 mL of 2.0% PF lidocaine was injected after negative aspiration. After a 90s pause, lesioning was performed to 90 degrees centigrade for 90s ensuring lack of symptoms in the extremity throughout. Needle was rotated 180 degrees and lesioning repeated in a similar manner. Patient tolerated this well. No paresthesias were elicited. Needle was removed completely intact without difficulty. The same procedure was repeated for all intended levels/ structures on the ipsilateral side, right L4, L5 medial branch/dorsal ramus with identical methodology, modified to compensate for new location, with similar results and no evidence of complication. The same exact procedure was repeated for all remaining levels on the contralateral side, left L3, L4, L5 medial branches/dorsal ramus, modified as necessary to accommodate for the new target location with identical findings/results and no evidence of complication. Images were saved and documented in the patient chart. Patient's skin was cleansed and sterile bandage applied. The patient tolerated the procedure well. The patient was transported to the recovery area in stable condition where they were observed for an appropriate amount of time prior to discharge, without evidence of complication. The patient was instructed to avoid excessive activity for the next 48 hours, including climbing and frequent use of stairs. Showers only for 48 hours. They were instructed not to drive or operate heavy machinery for 24 hours. They are to monitor for severe headaches, fevers, chills, night sweats, erythema/swelling at the site or any other signs of infection, bleeding/bruising, bowel or bladder changes as well as new pain, weakness or numbness in the upper or lower extremity. Should they notice these changes, they are instructed to call our office immediately or report directly to the nearest Emergency Department if no answer or if after posted office hours. COMPLICATIONS: None COMMENTS: None Complications No immediate complications Condition Stable Disposition PACU [facility] Billing Surgery - Charge Forward: Surgery Billing
[2025-03-31 12:15] VITALS: BP 112/64; PULSE 84; RESP 20; TEMP 37.1; O2SAT 94
[2025-03-31 13:12] LABS: Anion Gap 9 mmol/L (4-12); Blood Urea Nitrogen 46 mg/dL (9-20); Calcium 9.0 mg/dL (8.4-10.2); Carbon Dioxide 35 mmol/L (22-30); Chloride 89 mmol/L (98-107); Estimated CRCL calculation 70 ml/min; Estimated Glomerular Filt Rate 36; Glucose 223 mg/dL (65-110); Potassium 3.4 mmol/L (3.4-5.0); Sodium 133 mmol/L (137-145)
[2025-03-31] MEDS: LACTATED RINGERS 1,000 ML 30 ML IV CONT (14:00)
--- NOTE | 2025-03-31 14:05 | WPDANESEPPF ---
Anes - Initial Pre Proc Eval Procedure: Operation Date: 03/31/25 14:00 Proposed Procedures p Thermal Radiofrequency Ablation Bilateral L3, L4, L5 Medial Branches/Dorsal Rami Supplying Bilateral L4-5, L5-S1 Facet joints Under Fluoroscopic Guidance - Dennis Suh MD Date/Time: 03/31/25 14:05 Surgeon: Dennis Suh MD Pre Op Diagnosis: spondylosis lumbosacral region Patient Data Age: 49 Gender: M Height: 1.83 m Weight: 178.7 kg Last Vital Signs Temp 37.1 C 03/31/25 12:15 Pulse 84 03/31/25 12:15 Resp 20 03/31/25 12:15 BP 112/64 03/31/25 12:15 Pulse Ox 94 03/31/25 12:15 O2 Del Method Room Air 03/31/25 12:15 Allergies Allergy/AdvReac Type Severity Reaction Status Date / Time Penicillins Allergy Mild Hives Verified 03/31/25 12:45 Home Medications ?Medication ?Instructions ?Recorded ?Confirmed ?Type albuterol sulfate 1.25 mg/3 mL 2.5 mg inhalation Q4H PRN 04/13/21 03/27/25 History solution for nebulization Shortness Of Breath albuterol sulfate 90 mcg/actuation 2 puff inhalation Q6-8H PRN 10/22/23 03/31/25 History aerosol inhaler shortness of breath or wheezing azelastine 137 mcg (0.1 %) nasal 137 mcg intranasal BID 10/22/23 03/31/25 History spray furosemide 40 mg tablet (Lasix) 40 mg PO BID 10/22/23 03/31/25 History ziprasidone HCl 60 mg capsule 60 mg PO BID 10/22/23 03/31/25 History aspirin 81 mg tablet,delayed 81 mg PO DAILY 02/25/24 03/31/25 History release hydroxyzine pamoate 50 mg capsule 50 mg PO BID PRN Anxiety 02/25/24 03/31/25 History buspirone 30 mg tablet 30 mg PO BID 03/25/24 03/31/25 History glucagon 1 mg/0.2 mL subcutaneous 1 mg (0.2 mL) subcut ONCE #0.4 mL 05/29/24 03/27/25 Rx auto-injector (Gvoke HypoPen 2-Pack) atorvastatin 80 mg tablet 80 mg PO DAILY 01/18/25 03/31/25 History bupropion HCl 300 mg 24 hr tablet, 300 mg PO DAILY 01/18/25 03/31/25 History extended release famotidine 40 mg tablet 40 mg PO HS 01/18/25 03/31/25 History fluticasone propionate 115 2 puff inhalation BID 01/18/25 03/31/25 History mcg-salmeterol 21 mcg/actuation HFA inhaler (Advair HFA) fluticasone propionate 50 1 spray intranasal DAILY 01/18/25 03/31/25 History mcg/actuation nasal spray,suspension gabapentin 300 mg capsule 300 mg PO QID 01/18/25 03/31/25 History insulin glargine 100 unit/mL (3 50 unit subcut HS 01/18/25 03/31/25 History mL) subcutaneous pen (Lantus Solostar U-100 Insulin) ipratropium 0.5 mg-albuterol 3 mg 3 ml inhalation QID 01/18/25 03/31/25 History (2.5 mg base)/3 mL nebulization soln lamotrigine 200 mg tablet 200 mg PO HS 01/18/25 03/31/25 History losartan 50 mg tablet 50 mg PO BID 01/18/25 03/31/25 History metformin 500 mg tablet,extended 1,000 mg PO BID 01/18/25 03/31/25 History release 24 hr (Glucophage XR) omeprazole 40 mg capsule,delayed 40 mg PO HS 01/18/25 03/31/25 History release ziprasidone HCl 40 mg capsule 40 mg PO HS 01/18/25 03/31/25 History carvedilol 12.5 mg tablet (Coreg) 12.5 mg PO BID 90 days #180 tabs 01/20/25 03/31/25 Rx metolazone 2.5 mg tablet 2.5 mg PO .MWF #90 tabs 01/20/25 03/31/25 Rx alcohol swabs (Alcohol Prep Pads) See Rx Instructions .Route 01/30/25 03/27/25 Rx .COMPLEX #100 pad empagliflozin 25 mg tablet 50 mg PO DAILY 03/20/25 03/31/25 History (Jardiance) tirzepatide 10 mg/0.5 mL 10 mg subcut WEEKLY 03/20/25 03/31/25 History subcutaneous pen injector (Mounjaro) Laboratory Tests 03/31/25 03/31/25 12:34 12:57 Sodium 133 L mmol/L (137-145) Potassium 3.4 mmol/L (3.4-5.0) Chloride 89 L mmol/L (98-107) Carbon Dioxide 35 H mmol/L (22-30) Anion Gap 9 mmol/L (4-12) BUN 46 H D mg/dL (9-20) Creatinine 1.99 H mg/dL (0.7-1.3) Estim Creat Clear Calc 70 ml/min Estimated GFR 36 L (59 - ) Glucose 223 H mg/dL (65-110) POC Capillary Glucose 208 H mg/dl (65-105) Calcium 9.0 mg/dL (8.4-10.2) Patient hx anesthesia problems: none Family hx anesthesia problems: none Results Review: All pre-operative results and documents have been reviewed as part of the pre-operative evaluation. [facility] Past Medical History Medical History Anemia of chronic disease Heart failure with preserved ejection fraction echo pain 04/05/2020 showed a severely enlarged left ventricular chamber with an EF at the low end of normal estimated 50 to 55%, abnormal diastolic function, and mild pulmonary hypertension Dyslipidemia Anxiety and depression Gastroesophageal reflux disease Obstructive sleep apnea Type 2 diabetes mellitus Chronic obstructive pulmonary disease Obesity hypoventilation syndrome Chronic respiratory failure with hypoxia and hypercapnia he is on p.r.n. oxygen during the day and uses a trilogy unit with at nighttime Tobacco abuse Hypertension Surgical History Surgical History History of hernia repair History of cardiac catheterization no intervention x3. The last 1 was around 2022. History of tonsillectomy Family History Family History Father Diabetes mellitus Other Acute myocardial infarction Social History Social History Social History: He has 4 daughters and he is disabled. Surrogate medical decision maker: Candie Leahy, . Code status: Full code. Smoking packs per day: 1.5 Smoking cigarettes per day: 30.0 Years smoked: 25 Smoking pack-years: 37.50 Smoking status: Former smoker Tobacco type: cigarettes Second hand tobacco smoke exposure: No Smoking end date: 04/17/21 Alcohol intake: former Alcohol use details: rarely Substance use: never Substance use type: marijuana Last use: last used marijuana a week ago Lack of Transportation: No Lack of Food: Never True Current Housing: I Have Housing Concerned About Future Housing: No Difficulty Paying Gas/Electric Bills: No Difficulty Paying for Meds: No Currently Unemployed: No Education: Trade/Vocational Certificate Difficulty w/ Childcare or Family Care: No Living arrangements: with family Spiritual care concerns: No Anes - Eval Final PreProcedure Day of Procedure 03/31/25 14:05 Patient weight: super morbidly obese Heart: regular rate and rhythm Lungs: decreased breath sounds Airway: Mallampati scale class III Neurological: alert and oriented Last oral intake: >/= 8 hours ASA classification: IV Emergent: no Anesthetic plan: proceed Anesthesia type and monitoring: general GIVS and standard monitoring Results Review: All pre-operative results and documents have been reviewed as part of the pre-operative evaluation. Informed Consent: The patient's anesthetic plan and its attendant risks and benefits were discussed with the patient/family/POA. Questions were solicited and answers provided to the satisfaction of the patient/family/POA.
[2025-03-31] MEDS: BUPivacaine HCL 0.5% 10 ML AMP 5 ML INFILTRATE (14:26)
[2025-03-31] MEDS: LIDOCAINE 2% PF LOCAL INJ 5 ML VIAL 10 ML INFILTRATE (14:26)
[2025-03-31] MEDS: LIDOCAINE 1% PF INJ 5 ML VIAL INFILTRATE (14:27)
[2025-03-31 15:00] VITALS: BP 112/66; PULSE 91; O2SAT 95
[2025-03-31 15:30] VITALS: BP 119/60; PULSE 90; O2SAT 94
[2025-03-31] MEDS: oxyCODONE HCL (*CRX) 5 MG TAB IR PO (15:40)
[2025-03-31 16:00] VITALS: BP 127/65; PULSE 85; O2SAT 97
[2025-03-31 16:30] VITALS: BP 130/72; PULSE 85
== END 2025-03-31 16:32 | disposition home or self-care (01) ==
PROVIDERS: Anesthesiology; PCP Emergency Medicine; Visit Provider Anesthesiology Pain Medicine
PROC: (CPT 64635; principal; 2025-03-31 14:00)
DX: M47.817 Spondylosis without myelopathy or radiculopathy, lumbosacral region (principal); E11.9 Type 2 diabetes mellitus without complications; Z87.891 Personal history of nicotine dependence; E66.01 Morbid (severe) obesity due to excess calories; Z68.43 Body mass index [BMI] 50.0-59.9, adult
CPT/HCPCS: 64635; 64636 ×6; 36415; 80048; 82948; 99199; A9270; J2003; J2250; J3010; J7120